=== PATIENT | female | born 2000 | race Caucasian/White ===

== ENCOUNTER 2023-03-21 12:00 | Emergency (ER) | payer OTHER, SELFPAY ==
[2023-03-21 12:08] VITALS: BP 118/71; PULSE 82; RESP 18; TEMP 36.8; O2SAT 97; BMI 17.5
--- NOTE | 2023-03-21 12:29 | ED_ITS ---
HPI - Skin/Abscess/Foreign Bdy General Chief complaint: Skin/Abscess/Foreign Body Stated complaint: RINGWORM Time Seen by Provider: 03/21/23 12:29 Source: patient Mode of arrival: walk-in History of Present Illness HPI narrative: Patient presents to emergency department complaining of a rash. Patient states that she's had ringworm to her left thigh and left shoulder for several days. Boyfriend also has the same symptoms. She denies any fever, chills, cough, chest, shortness of breath. She denies any trauma. She denies trauma. We'll. She states that she remembered that she needed pills or cramping. She has not seen her primary care doctor. Related Data Previous Rx's Medication Instructions Recorded clotrimazole 1 % topical cream 1 applic topical Q12H 8 weeks #30 03/21/23 (Lotrimin AF (clotrimazole)) grams Allergies Allergy/AdvReac Type Severity Reaction Status Date / Time ibuprofen Allergy Mild Verified 03/21/23 12:08 Review of Systems ROS Status of ROS 10 or more systems reviewed and unremarkable except as noted in h istory and below Exam Narrative Exam Narrative: Nurses notes and vital signs reviewed and patient is not hypoxic. General: Nontoxic, Well-appearing and in no apparent distress. Skin: Warm, dry, no pallor noted. Round plaques with well-demarcated borders to the left thigh and 2 to the left posterior shoulder. Consistent with ringworm. Head: Normocephalic, atraumatic. Neck: Supple, non-tender. Eye: Pupils are equal, round and EOMI. No scleral icterus. Ears, Nose, Mouth, and Throat: TM clear, no posterior oropharynx erythema or nasal mucosal hypertrophy, uvula is mid-line Oral mucosa is moist Cardiovascular: Regular Rate and Rhythm without murmur, gallop or rub. Respiratory: No accessory muscle use or respiratory distress. Lungs are clear to auscultation, no wheezing, rales or rhonchi Chest Wall: no tenderness Back: No midline thoracic or lumbar vertebral tenderness. No CVA tenderness Musculoskeletal: normal ROM, no calf or popliteal tenderness, no lower extremity edema/swelling GI: Abdomen is soft, non-distended. Normal bowel sounds. No masses appreciated. No tenderness to palpation. No rebound, guarding, or rigidity noted. Neurological: A&O x4. No cranial nerve dysfunction observed. No truncal ataxia. Moves all extremities. Sensation intact. Psychiatric: Cooperative and interactive. Normal mood and affect. Constitutional Vital Signs - 24 hr 03/21/23 12:08 Temperature 98.2 F Pulse Rate [Monitor] 82 Respiratory Rate 18 Blood Pressure [Left Arm] 118/71 Pulse Oximetry 97 Oxygen Delivery Method Room Air Course Vital Signs Vital signs: Vital Signs Temperature 98.2 F 03/21/23 12:08 Pulse Rate 82 03/21/23 12:08 Respiratory Rate 18 03/21/23 12:08 Blood Pressure 118/71 03/21/23 12:08 Pulse Oximetry 97 03/21/23 12:08 Oxygen Delivery Method Room Air 03/21/23 12:08 Temperature 98.2 F 03/21/23 12:08 Pulse Rate 82 03/21/23 12:08 Respiratory Rate 18 03/21/23 12:08 Blood Pressure 118/71 03/21/23 12:08 Pulse Oximetry 97 03/21/23 12:08 Oxygen Delivery Method Room Air 03/21/23 13:14 MDM - Skin/Abscess/Foreign Bdy MDM Narrative Medical decision making narrative: Patient started on Lotrimin. Advised follow-up with primary care doctor. Stated she does not like taking pills so prefers appointment at this time. .At this time the patient is without objective evidence of an acute process requiring hospitalization or inpatient management. The patient has remained hemodynamically stable. No additional indication for emergent studies at this time. I answered all questions. Discussed discharge instructions including standard anticipatory guidance and what should prompt a return to the emergency department, including if they get worse are not getting better or develops any new or concerning symptoms. I've given them specific time frame in which to follow-up, and who to follow-up with. The patient demonstrates understanding. Patient is nontoxic and stable for discharge with outpatient follow-up. This note was created with the assistance of a speech recognition program. Although the intention is to generate documents that actually reflects the content of the visit, no guarantees can be provided that every mistake has been identified and corrected by editing. Differential Diagnosis Differential diagnosis: Likely abscess of skin or subcutaneous tissue, viral exanthem, dermatophytosis, urticaria, herpes zoster, allergic reaction to drug, cellulitis, eczema, impetigo and contact dermatitis Discharge Plan Discharge Chief Complaint: Skin/Abscess/Foreign Body Clinical Impression: Tinea corporis Patient Disposition: Home, Self-Care Time of Disposition Decision: 13:01 Condition: Good Mode of Transportation: Private Vehicle Prescriptions / Home Meds: New clotrimazole [Lotrimin AF (clotrimazole)] 1 % cream 1 applic topical Q12H 56 Days Qty: 30 0RF Instructions: Tinea Corporis (ED) Additional Instructions: Apply the medication ass instructed. Follow-up with primary care doctor. Return to the emergency department for possible concerns as discussed. Stand Alone Forms: Portal Instructions Referrals: Physician,Non-Staff, MD [Primary Care Provider] - 1 week Discharge Date/Time: 03/21/23 13:10
== END 2023-03-21 13:10 | disposition home or self-care (01) ==
PROVIDERS: Emergency Provider Emergency Medicine
DX: B35.4 Tinea corporis (principal)
CPT/HCPCS: 99282

== ENCOUNTER 2023-06-01 19:36 | Emergency (ER) | payer OTHER, SELFPAY ==
[2023-06-01 19:41] VITALS: BP 115/69; PULSE 94; RESP 16; O2SAT 100; BMI 17.0
--- NOTE | 2023-06-01 19:53 | CT_ITS ---
[address] [address] Patient Name: AGUSTINA MONROY MRN: [facility]:[id number] date: 2000 Sex: F Assigned Patient Location: ER Current Patient Location: ER Accession/Order Number: [id number] Exam Date: 06/01/2023 20:11 Report Date: 06/01/2023 21:04 At the request of: ANGELES SOTO Procedure: CT abdomen pelvis wo con EXAM: CT abdomen pelvis wo con HISTORY: left flank pain COMPARISON: None. TECHNIQUE: CT of the abdomen and pelvis without intravenous contrast. Dose reduction techniques were achieved by using automated exposure control and/or adjustment of mA and/or kV according to patient size and/or use of iterative reconstruction technique. FINDINGS: Limited evaluation of the viscera/organs and vasculature without intravenous contrast. TUBES AND IMPLANTS: Thoracolumbar posterior instrumentation is noted. LOWER CHEST: Unremarkable ABDOMEN and PELVIS ABDOMINAL WALL AND SOFT TISSUES: Right gluteal decubitus ulcer is identified with adjacent soft tissue collection/induration which abuts the posterior wall of the rectum. BONES: No suspicious lesions. Dextroconvex scoliosis. ARTERIES: Incompletely evaluated. VEINS: Incompletely evaluated. LYMPH NODES: Unremarkable. PERITONEUM/ RETROPERITONEUM: Unremarkable. BOWEL: Stool filled colon and rectum. Moderate to large stool burden APPENDIX: Not identified. No inflammatory changes in its expected location. LIVER: No focal lesions are identified GALLBLADDER: Contracted BILE DUCTS: Not dilated SPLEEN: Unremarkable. PANCREAS: Unremarkable. ADRENALS: Unremarkable. KIDNEYS/ URETERS: No stones are identified. Stable mild left pelviectasis. REPRODUCTIVE ORGANS: Unremarkable URINARY BLADDER: Diffuse wall thickening with redemonstration of a urachal sinus. CT/CT abdomen pelvis wo con IMPRESSION: 1. Limited evaluation of the viscera/organs and vasculature without intravenous contrast. 2. Diffuse wall thickening of the bladder with redemonstration of urachal sinus. Correlate for cystitis. 3. Stable left pelviectasis without urinary tract stone identified. 4. Stool-filled colon and rectum with moderate to large stool burden. 5. Right gluteal decubitus ulcer is identified with adjacent soft tissue collection/induration which abuts the posterior wall of the rectum. Correlate for rectocutaneous fistula. Electronically authenticated by: DEEPA WATSON Date: 06/01/2023 21:04
[2023-06-01 19:54] LABS: Bilirubin Urine NEGATIVE (NEGATIVE); Blood Urine TRACE-I (NEGATIVE); Clarity Urine CLEAR (CLEAR); Color Urine LT. YELLOW (YELLOW); Glucose Urine UA NEGATIVE (NEGATIVE); Ketones Urine NEGATIVE (NEGATIVE); Leukocyte Esterase Urine TRACE (NEGATIVE); Nitrite Urine NEGATIVE (NEGATIVE); Protein Urine NEGATIVE (NEG/TRACE); Specific Gravity Urine 1.015 (1.005-1.025); Urine Microscopic Indicated YES
[2023-06-01 20:03] LABS: Bacteria Urine NONE SEEN #/HPF (NONE SEEN); RBC Urine 20-50 #/HPF (0-2)
[2023-06-01 20:04] LABS: Cast Seen? NONE SEEN #/LPF (NONE SEEN); Crystals Seen? None Seen #/HPF (None Seen); Mucus Urine NONE SEEN (NONE SEEN); Squamous Epithelial Cell Urine FEW #/LPF (NONE/RARE); Urine Culture Indicated YES
[2023-06-01 20:07] LABS: HCG Qualitative Urine* NEGATIVE (NEGATIVE)
--- NOTE | 2023-06-01 20:25 | ED_ITS ---
HPI - Abdominal Pain General Chief Complaint: Abdominal Pain Stated Complaint: LT FLANK PAIN Time Seen by Provider: 06/01/23 19:48 Source: patient Mode of arrival: walk-in Limitations: no limitations History of Present Illness HPI narrative: The patient is coming to the ER with a left-sided lower upper abdominal pain that resolved before arrival she mentioned that the pain was severe when it happened almost a few hours ago and it was not associated with any nausea vomiting or any other concerns the pain was not radiating but she does have a history of kidney stone The patient denies any other complaints Related Data Allergies Allergy/AdvReac Type Severity Reaction Status Date / Time ibuprofen Allergy Mild Verified 06/01/23 19:46 Review of Systems ROS Status of ROS 10 or more systems reviewed and unremarkable except as noted in history and below Exam Narrative Exam Narrative: Nurses notes and vital signs reviewed and patient is not hypoxic. General: Well-appearing and in no apparent distress. Skin: Warm, dry, no pallor noted. No rash. Head: Normocephalic, atraumatic. Neck: Supple, non-tender. Eye: Pupils are equal, round and EOMI. No scleral icterus. Ears, Nose, Mouth, and Throat: TM are clear, no nasal mucosal hypertrophy. Oral mucosa is moist, no posterior oropharynx erythema, uvula is mid-line Cardiovascular: Regular Rate and Rhythm without murmur, gallop or rub. Respiratory: No accessory muscle use or respiratory distress. Lungs are clear to auscultation, no wheezing, rales or rhonchi Chest Wall: no tenderness Back: No midline thoracic or lumbar vertebral tenderness. No CVA tenderness Musculoskeletal: normal ROM, no calf or popliteal tenderness, no lower extremity edema/swelling GI: Abdomen is soft, non-distended. Normal bowel sounds. No masses appreciated. No tenderness to palpation. No rebound, guarding, or rigidity noted. Neurological: A&O x4. No cranial nerve dysfunction observed. No truncal a taxia. Moves all extremities. Sensation intact. Psychiatric: Cooperative and interactive. Normal mood and affect. Constitutional Vital Signs, click to edit/add: Last Vital Signs Pulse 94 H 06/01/23 19:41 Resp 16 06/01/23 19:41 BP 115/69 06/01/23 19:41 Pulse Ox 100 06/01/23 19:41 O2 Del Method Room Air 06/01/23 19:41 Course Vital Signs Vital signs: Vital Signs Pulse Rate 94 H 06/01/23 19:41 Respiratory Rate 16 06/01/23 19:41 Blood Pressure 115/69 06/01/23 19:41 Pulse Oximetry 100 06/01/23 19:41 Oxygen Delivery Method Room Air 06/01/23 19:41 Pulse Rate 94 H 06/01/23 19:41 Respiratory Rate 16 06/01/23 19:41 Blood Pressure 115/69 06/01/23 19:41 Pulse Oximetry 100 06/01/23 19:41 Oxygen Delivery Method Room Air 06/01/23 19:41 MDM - Abdominal Pain MDM Narrative Medical decision making narrative: The patient test was negative and her CAT scan shows a constipation with no other acute issues The patient right now just to continue management of her constipation at home She also had negative test and her urine did not show any signs of UTI The patient is to follow up with primary care physician in next 2-3 days or to return to the emergency department should any of the signs or symptoms worsen or new symptoms develop. The patient agrees with the following Diagnosis and Treatment plan and the patient will be discharged home. Lab Data Labs: Lab Results 06/01/23 Range/Units 19:46 Urine Color Lt. yellow (YELLOW) Urine Clarity Clear (CLEAR) Urine pH 7.0 (5.0-9.0) Ur Specific [place] 1.015 (1.005-1.025) Urine Protein Negative (NEG/TRACE) mg/dL Urine Glucose (UA) Negative (NEGATIVE) mg/dL Urine Ketones Negative (NEGATIVE) mg/dL Urine Occult Blood Trace-i (NEGATIVE) Urine Nitrite Negative (NEGATIVE) Urine Bilirubin Negative (NEGATIVE) Urine Urobilinogen 1.0 (0.2-1.0) EU/dL Ur Leukocyte Esterase Trace A (NEGATIVE) Urine RBC 20-50 A (0-2) #/HPF Urine WBC 5-10 A (NONE SEEN) #/HPF Ur Squamous Epith Cells Few A (NONE/RARE) #/LPF Urine Crystals None seen (None Seen) #/HPF Urine Bacteria None seen (NONE SEEN) #/HPF Urine Casts None seen (NONE SEEN) #/LPF Urine Mucus None seen (NONE SEEN) Ur Culture Indicated? Yes Urine HCG, Qual Negative (NEGATIVE) Discharge Plan Discharge Chief Complaint: Abdominal Pain Clinical Impression: Constipation Patient Disposition: Home, Self-Care Time of Disposition Decision: 21:15 Condition: Good Instructions: Constipation (ED) Stand Alone Forms: Portal Instructions Referrals: Physician,Non-Staff, MD [Primary Care Provider] - 1 week
== END 2023-06-01 21:21 | disposition home or self-care (01) ==
PROVIDERS: Emergency Provider Emergency Medicine
DX: K59.00 Constipation, unspecified (principal); Z87.442 Personal history of urinary calculi
CPT/HCPCS: 74176; 80053; 81001; 84703; 87086; 87150; 99284

== ENCOUNTER 2023-06-16 06:42 | Emergency (ER) | payer OTHER, SELFPAY ==
[2023-06-16 07:06] VITALS: BP 114/78; PULSE 85; RESP 16; TEMP 36.8; O2SAT 97; BMI 17.0
--- NOTE | 2023-06-16 07:35 | ED.ABDPAIN1 ---
HPI - Abdominal Pain General Chief Complaint: Abdominal Pain Stated Complaint: ABD PAIN Time Seen by Provider: 06/16/23 07:27 Source: patient and family Mode of arrival: walk-in Limitations: no limitations History of Present Illness HPI narrative: The patient evaluated by the ER 2 weeks ago for constipation's coming to us after she had a bowel movement and she was having some cramping at work and after the bowel movement the cramping resolved, the patient mentioned that she usually use coffee as a laxative The patient coming to the ER for work excuse after she had to leave work today because of the cramping that resolved after having bowel movement Related Data Allergies Allergy/AdvReac Type Severity Reaction Status Date / Time ibuprofen Allergy Mild Verified 06/16/23 07:11 Review of Systems ROS Status of ROS 10 or more systems reviewed and unremarkable except as noted in history and below PFSH PFS Social History Smoking status: Current every day smoker Exam Narrative Exam Narrative: Nurses notes and vital signs reviewed and patient is not hypoxic. General: Well-appearing and in no apparent distress. Skin: Warm, dry, no pallor noted. No rash. Head: Normocephalic, atraumatic. Neck: Supple, non-tender. Eye: Pupils are equal, round and EOMI. No scleral icterus. Ears, Nose, Mouth, and Throat: TM are clear, no nasal mucosal hypertrophy. Oral mucosa is moist, no posterior oropharynx erythema, uvula is mid-line Cardiovascular: Regular Rate and Rhythm without murmur, gallop or rub. Respiratory: No accessory muscle use or respiratory distress. Lungs are clear to auscultation, no wheezing, rales or rhonchi Chest Wall: no tenderness Back: No midline thoracic or lumbar vertebral tenderness. No CVA tenderness Musculoskeletal: normal ROM, no calf or popliteal tenderness, no lower extremity edema/swelling GI: Abdomen is soft, non-distended. Normal bowel sounds. No masses appreciated. No tenderness to palpation. No rebound, guarding, or rigidity noted. Neurological: A&O x4. No cranial nerve dysfunction observed. No truncal ataxia. Moves all extremities. Sensation intact. Psychiatric: Cooperative and interactive. Normal mood and affect. Constitutional Vital Signs, click to edit/add: Last Vital Signs Temp 98.2 F 06/16/23 07:06 Pulse 85 06/16/23 07:06 Resp 16 06/16/23 07:06 BP 114/78 06/16/23 07:06 Pulse Ox 97 06/16/23 07:06 O2 Del Method Room Air 06/16/23 07:06 Course Vital Signs Vital signs: Vital Signs Temperature 98.2 F 06/16/23 07:06 Pulse Rate 85 06/16/23 07:06 Respiratory Rate 16 06/16/23 07:06 Blood Pressure 114/78 06/16/23 07:06 Pulse Oximetry 97 06/16/23 07:06 Oxygen Delivery Method Room Air 06/16/23 07:06 Temperature 98.2 F 06/16/23 07:06 Pulse Rate 85 06/16/23 07:06 Respiratory Rate 16 06/16/23 07:06 Blood Pressure 114/78 06/16/23 07:06 Pulse Oximetry 97 06/16/23 07:06 Oxygen Delivery Method Room Air 06/16/23 07:06 MDM - Abdominal Pain MDM Narrative Medical decision making narrative: The patient is here for a work excuse which she was provided with she was instructed to continue hydration and fiber intake The patient is to follow up with primary care physician in next 2-3 days or to return to the emergency department should any of the signs or symptoms worsen or new symptoms develop. The patient agrees with the following Diagnosis and Treatment plan and the patient will be discharged home. Discharge Plan Discharge Chief Complaint: Abdominal Pain Clinical Impression: Constipation Patient Disposition: Home, Self-Care Time of Disposition Decision: 07:39 Condition: Good Mode of Transportation: Private Vehicle Instructions: Constipation (ED) Stand Alone Forms: Portal Instructions Referrals: Physician,Non-Staff, MD [Primary Care Provider] - 1 week
== END 2023-06-16 07:53 | disposition home or self-care (01) ==
PROVIDERS: Emergency Provider Emergency Medicine
DX: K59.00 Constipation, unspecified (principal); F17.210 Nicotine dependence, cigarettes, uncomplicated
CPT/HCPCS: 99282

== ENCOUNTER 2023-06-17 20:39 | Emergency (ER) | payer OTHER, SELFPAY ==
[2023-06-17 20:58] VITALS: BP 125/74; PULSE 76; RESP 16; TEMP 36.8; O2SAT 100; BMI 17.0
[2023-06-17 21:23] LABS: Bilirubin Urine NEGATIVE (NEGATIVE); Blood Urine TRACE-I (NEGATIVE); Clarity Urine CLEAR (CLEAR); Color Urine LT. YELLOW (YELLOW); Glucose Urine UA NEGATIVE (NEGATIVE); Ketones Urine NEGATIVE (NEGATIVE); Leukocyte Esterase Urine NEGATIVE (NEGATIVE); Nitrite Urine NEGATIVE (NEGATIVE); Protein Urine TRACE mg/dL (NEG/TRACE); Urobilinogen Urine 0.2 EU/dL (0.2-1.0)
[2023-06-17 21:27] LABS: Urine Microscopic Indicated NO
== END 2023-06-17 23:16 | disposition left against medical advice (07) ==
LOC: ER 20:43
PROVIDERS: Emergency Provider Emergency Medicine
DX: Z53.21 Procedure and treatment not carried out due to patient leaving prior to being seen by health care provider (principal); R10.9 Unspecified abdominal pain
CPT/HCPCS: 81003

== ENCOUNTER 2023-06-20 10:06 | Emergency (ER) | payer OTHER, SELFPAY ==
[2023-06-20 10:13] VITALS: BP 104/76; PULSE 100; RESP 16; TEMP 37.1; O2SAT 100; BMI 18.9
[2023-06-20 10:26] LABS: Bilirubin Urine NEGATIVE (NEGATIVE); Blood Urine TRACE-I (NEGATIVE); Clarity Urine CLEAR (CLEAR); Color Urine LT. YELLOW (YELLOW); Glucose Urine UA NEGATIVE (NEGATIVE); Ketones Urine NEGATIVE (NEGATIVE); Leukocyte Esterase Urine SMALL (NEGATIVE); Nitrite Urine NEGATIVE (NEGATIVE); Protein Urine NEGATIVE (NEG/TRACE); Specific Gravity Urine 1.015 (1.005-1.025); Urobilinogen Urine 0.2 EU/dL (0.2-1.0); pH Urine 7.5 (5.0-9.0)
[2023-06-20 10:29] LABS: Urine Microscopic Indicated YES
--- NOTE | 2023-06-20 10:34 | ED_ITS ---
HPI - Female Genitourinary General Chief complaint: Urogenital-Female Stated complaint: UTI SYMPTOMS Time Seen by Provider: 06/20/23 10:34 Source: patient Mode of arrival: walk-in History of Present Illness HPI Narrative: this patient's here with a possible urinary tract infection. At the time of her . 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 She had a surgical procedure done at and is voids through self- catheterization through the opening in the umbilical area. She is under the care of a adult urologist in [place]. They had advised her to be on Bactrim on a daily basis but she's not been doing that for quite some time. She states that she has not, to her knowledge, didn't develop any resistant organisms and usually Bactrim works. She has not had fever shakes or chills. She does not have a new pain in her back area. She's not had vomiting or diarrhea. Related Data Home Medications Medication Instructions Recorded Confirmed No Known Home Medications 06/17/23 06/17/23 Allergies Allergy/AdvReac Type Severity Reaction Status Date / Time ibuprofen Allergy Mild Verified 06/20/23 10:16 [facility] Social History Smoking status: Current every day smoker Exam Narrative Exam Narrative: awake alert pleasant does not appear ill. She is afebrile. Examination the abdomen area she has no peritoneal findings and no guarding rebound rigidity or discomfort. She has a small opening within the umbilicus that she self catheterizes herself. She is already done that for us any urine has been sent to lab. She does not appear ill or skin is warm and dry mucous membranes are moist and pink there is no pallor. There is no diaphoresis or clamminess. Final disposition is pending urinalysis. Constitutional Vital Signs, click to edit/add: Last Vital Signs Temp 98.7 F 06/20/23 10:13 Pulse 100 H 06/20/23 10:13 Resp 16 06/20/23 10:13 BP 104/76 06/20/23 10:13 Pulse Ox 100 06/20/23 10:13 O2 Del Method Room Air 06/20/23 10:13 Course Vital Signs Vital signs: Vital Signs Temperature 98.7 F 06/20/23 10:13 Pulse Rate 100 H 06/20/23 10:13 Respiratory Rate 16 06/20/23 10:13 Blood Pressure 104/76 06/20/23 10:13 Pulse Oximetry 100 06/20/23 10:13 Oxygen Delivery Method Room Air 06/20/23 10:13 Temperature 98.7 F 06/20/23 10:13 Pulse Rate 100 H 06/20/23 10:13 Respiratory Rate 16 06/20/23 10:13 Blood Pressure 104/76 06/20/23 10:13 Pulse Oximetry 100 06/20/23 10:13 Oxygen Delivery Method Room Air 06/20/23 10:13 MDM - Female Genitourinary MDM Narrative Medical decision making narrative: patient presents with urinary symptomatology. She normally would be on Bactrim but has not been on it for quite some time. She is under the care of a urologist in [place]. Her urinalysis suggests early urinary tract infection so we will start her back on Bactrim. She is take plenty of fluids. Lab Data Labs: Lab Results 06/20/23 Range/Units 10:20 Urine Color Lt. yellow (YELLOW) Urine Clarity Clear (CLEAR) Urine pH 7.5 (5.0-9.0) Ur Specific [place] 1.015 (1.005-1.025) Urine Protein Negative (NEG/TRACE) mg/dL Urine Glucose (UA) Negative (NEGATIVE) mg/dL Urine Ketones Negative (NEGATIVE) mg/dL Urine Occult Blood Trace-i (NEGATIVE) Urine Nitrite Negative (NEGATIVE) Urine Bilirubin Negative (NEGATIVE) Urine Urobilinogen 0.2 (0.2-1.0) EU/dL Ur Leukocyte Esterase Small A (NEGATIVE) Urine RBC 0-2 (0-2) #/HPF Urine WBC 5-10 A (NONE SEEN) #/HPF Ur Squamous Epith Cells Rare (NONE/RARE) #/LPF Urine Crystals None seen (None Seen) #/HPF Urine Bacteria Small A (NONE SEEN) #/HPF Urine Casts None seen (NONE SEEN) #/LPF Urine Mucus None seen (NONE SEEN) Ur Culture Indicated? Yes Discharge Plan Discharge Chief Complaint: Urogenital-Female Clinical Impression: Urinary tract infection Patient Disposition: Home, Self-Care Time of Disposition Decision: 10:52 Prescriptions / Home Meds: No Action No Known Home Medications Additional Instructions: Bactrim/take plenty of fluids Stand Alone Forms: Portal Instructions Referrals: Physician,Non-Staff, [Primary Care Provider] - 1 week
[2023-06-20 10:35] LABS: Bacteria Urine SMALL #/HPF (NONE SEEN); Cast Seen? NONE SEEN #/LPF (NONE SEEN); Crystals Seen? None Seen #/HPF (None Seen); Mucus Urine NONE SEEN (NONE SEEN); RBC Urine 0-2 #/HPF (0-2); Squamous Epithelial Cell Urine RARE #/LPF (NONE/RARE); Urine Culture Indicated YES
== END 2023-06-20 11:05 | disposition home or self-care (01) ==
PROVIDERS: Emergency Provider Emergency Medicine Emergency Medical Services
DX: N39.0 Urinary tract infection, site not specified (principal); F17.210 Nicotine dependence, cigarettes, uncomplicated
CPT/HCPCS: 81001; 87086; 87150; 99283

== ENCOUNTER 2023-06-28 05:57 | Emergency (ER) | payer OTHER, SELFPAY ==
[2023-06-28 06:03] VITALS: BP 126/87; PULSE 85; RESP 16; TEMP 36.6; O2SAT 100; BMI 16.5
--- NOTE | 2023-06-28 06:35 | ED.GENADUL1 ---
HPI - General Adult General Chief complaint: Recheck/Abnormal Lab/Rx Stated complaint: RECTAL BLEEDING Time Seen by Provider: 06/28/23 06:35 Source: patient Mode of arrival: walk-in History of Present Illness HPI narrative: patient has past history of hemorrhoids. States a couple of hours ago ago she had anal sex with her boyfriend. She describes him using his finger and it was sharp. At work she wiped after having a BM and noticed some blood and freaked out no recurrence. No abdominal pain or fever. Related Data Home Medications Medication Instructions Recorded Confirmed No Known Home Medications 06/17/23 06/17/23 Allergies Allergy/AdvReac Type Severity Reaction Status Date / Time ibuprofen Allergy Mild Verified 06/20/23 10:16 Review of Systems ROS Status of ROS 10 or more systems reviewed and unremarkable except as noted in history and below PFSH PFS Social History Smoking status: Current every day smoker Exam Constitutional Vital Signs, click to edit/add: Last Vital Signs Temp 97.8 F 06/28/23 06:03 Pulse 85 06/28/23 06:03 Resp 16 06/28/23 06:03 BP 126/87 06/28/23 06:03 Pulse Ox 100 06/28/23 06:03 O2 Del Method Room Air 06/28/23 06:03 Common normals: no apparent distress, oriented x3, healthy appearing and alert Eye Common normals: PERRL, EOMs intact bilaterally and conjunctivae normal Chest Common normals: inspection of chest normal and palpation of chest normal GI Common normals: Normal to inspection, nondistended, normoactive bowel sounds present, soft to palpation and non-tender Other: anal verge with evidence of several small fissures of the anal verge. Extremity Common normals: normal to inspection and full ROM Neuro Common normals: oriented x3, CN's II-XII intact bilaterally, moves all extremities and no focal motor deficits Psych Appearance: grossly normal Course Vital Signs Vital signs: Vital Signs Temperature 97.8 F 06/28/23 06:03 Pulse Rate 85 06/28/23 06:03 Respiratory Rate 16 06/28/23 06:03 Blood Pressure 126/87 06/28/23 06:03 Pulse Oximetry 100 06/28/23 06:03 Oxygen Delivery Method Room Air 06/28/23 06:03 Temperature 97.8 F 06/28/23 06:03 Pulse Rate 85 06/28/23 06:03 Respiratory Rate 16 06/28/23 06:03 Blood Pressure 126/87 06/28/23 06:03 Pulse Oximetry 100 06/28/23 06:03 Oxygen Delivery Method Room Air 06/28/23 06:03 Medical Decision Making MDM Narrative Medical decision making narrative: patient presents complaining of wiping after BM and noticing some blood on the tissue. Admits to anal sex with her boyfriend earlier tonight. Anal exam performed with nursing. patient found to have small fissures likely from her anal sex. Patient discharged with home with a prescription for Bactroban and advised to avoid anal sex Discharge Plan Discharge Chief Complaint: Recheck/Abnormal Lab/Rx Clinical Impression: Rectal bleed, Acute anal fissure Prescriptions / Home Meds: No Action No Known Home Medications Instructions: Anal Fissure (ED) Stand Alone Forms: Portal Instructions Referrals: Physician,Non-Staff, MD [Primary Care Provider] - 1 week
== END 2023-06-28 06:56 | disposition home or self-care (01) ==
PROVIDERS: Emergency Provider Internal Medicine
DX: K62.5 Hemorrhage of anus and rectum (principal); K60.2 Anal fissure, unspecified; F17.210 Nicotine dependence, cigarettes, uncomplicated
CPT/HCPCS: 99283

== ENCOUNTER 2023-12-26 13:41 | Emergency (ER) | payer OTHER, SELFPAY ==
[2023-12-26 13:47] VITALS: BP 136/94; PULSE 95; RESP 18; TEMP 36.4; O2SAT 100; BMI 18.1
--- NOTE | 2023-12-26 13:58 | ECG_ITS ---
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
--- NOTE | 2023-12-26 13:58 | ED_ITS ---
HPI - Chest Pain General Chief Complaint: Chest Pain Stated Complaint: CHEST PAIN Time Seen by Provider: 12/26/23 13:47 Source: patient Mode of arrival: walk-in Limitations: no limitations History of Present Illness HPI narrative: 23 year old female presents to the ED for chest pain. Onset was last night. States the pain radiates across her chest, down her left arm, and to her left jaw. The pain is worse with movement and inspiration. Denies fever, chills, injury, cough, N/V. She has hx anxiety. Related Data Home Medications Medication Instructions Recorded Confirmed No Known Home Medications 06/17/23 06/17/23 Allergies Allergy/AdvReac Type Severity Reaction Status Date / Time ibuprofen Allergy Mild Verified 06/20/23 10:16 Review of Systems ROS Constitutional Denies: fever or chills Ears, nose, mouth, and throat Denies: throat pain or neck pain Cardiovascular Reports: chest pain; Denies: palpitations, swelling of feet/ankles or lightheadedness Respiratory Denies: shortness of breath or cough Gastrointestinal Denies: abdominal pain, nausea or vomiting Neurological Denies: headache, numbness in extremities, weakness in extremities, dizziness or vertigo PFSH PFSH Social History Smoking status: Current every day smoker Exam Constitutional Vital Signs, click to edit/add: Last Vital Signs Temp 97.6 F 12/26/23 13:47 Pulse 95 H 12/26/23 13:47 Resp 18 12/26/23 13:47 BP 136/94 H 12/26/23 13:47 Pulse Ox 100 12/26/23 13:47 O2 Del Method Room Air 12/26/23 13:47 Common normals: no apparent distress and oriented x3 General appearance: cooperative Eye Common normals: conjunctivae normal and no scleral icterus Neck & C-Spine Common normals: supple and no JVD Chest Chest: symmetrical chest wall rise Respiratory Common normals: normal respiratory effort, no retractions, no use of accessory muscles and clear to auscultation bilaterally Effort & inspection: able to speak in complete sentences Cardio Common normals: regular rate and regular rhythm Neuro Common normals: oriented x3 Sensorium/orientation: awake and alert Speech: speech normal Course Vital Signs Vital signs: Vital Signs Temperature 97.6 F 12/26/23 13:47 Pulse Rate 95 H 12/26/23 13:47 Respiratory Rate 18 12/26/23 13:47 Blood Pressure 136/94 H 12/26/23 13:47 Pulse Oximetry 100 12/26/23 13:47 Oxygen Delivery Method Room Air 12/26/23 13:47 Temperature 97.6 F 12/26/23 13:47 Pulse Rate 95 H 12/26/23 13:47 Respiratory Rate 18 12/26/23 13:47 Blood Pressure 136/94 H 12/26/23 13:47 Pulse Oximetry 100 12/26/23 13:47 Oxygen Delivery Method Room Air 12/26/23 13:47 MDM - Chest Pain MDM Narrative Medical decision making narrative: EKG was unremarkable. Chest x-ray showed no acute findings. Findings were discussed with the patient. The patient reported she has been under increased stress. Follow up with pcp for a recheck, further evaluation and treatment. Differential Diagnosis Differential diagnosis: Likely atypical chest pain, costochondritis and chest pain Medical Records Data Attestation: I reviewed the patient's medical records. Imaging Data Chest x-ray: Attestation: I have reviewed the pertinent imaging results. Radiologist's impression: ITS Impressions Chest X-Ray 12/26/23 13:58 IMPRESSION: No acute heart or lung disease identified. Electronically authenticated by: SEAMUS CONCEPCION Date: 12/26/2023 14:30 ECG Data Attestation: ?I have reviewed the pertinent ECG results. (EKG was reviewed by the attending physician. It showed sinus rhythm at a rate of 90. No acute ST segment changes. ) Interpretation: Measurements Intervals [place] Rate: 91 P: 75 NM: 180 QRS: 86 QRSD: 70 T: 58 QT: 346 QTc: 394 Interpretive Statements 1100 Sinus rhythm 9110 normal ECG No previous ECG available for comparison Discharge Plan Discharge Stand Alone Forms: Portal Instructions Chief Complaint: Chest Pain Clinical Impression: Atypical chest pain Patient Disposition: Home, Self-Care Time of Disposition Decision: 14:43 Condition: Good Mode of Transportation: Private Vehicle Prescriptions / Home Meds: No Action No Known Home Medications Instructions: Chest Pain (ED), Chest Wall Pain (ED) Referrals: Physician,Non-Staff, MD [Primary Care Provider] - 1 week Discharge Date/Time: 12/26/23 14:49
--- NOTE | 2023-12-26 13:58 | XR_ITS ---
The [address] [address] Patient Name: AGUSTINA MONROY MRN: [id number] date: 2000 Sex: F Assigned Patient Location: ER Current Patient Location: ER Accession/Order Number: [id number] Exam Date: 12/26/2023 14:18 Report Date: 12/26/2023 14:30 At the request of: RUPA FERGUSON Procedure: XR chest 2V EXAM: Chest x-ray HISTORY: . CP . COMPARISON: 10/09/2012 TECHNIQUE: Frontal and lateral chest FINDINGS: Heart and vascularity are unremarkable. Lungs are free of focal infiltrates. Rods with pedicle screws are noted overlying the thoracic and upper lumbar spine. EKG leads overlie the chest. XR/XR chest 2V IMPRESSION: No acute heart or lung disease identified. Electronically authenticated by: SEAMUS CONCEPCION Date: 12/26/2023 14:30
== END 2023-12-26 14:49 | disposition home or self-care (01) ==
PROVIDERS: Emergency Provider Emergency Medicine
DX: R07.89 Other chest pain (principal); F17.210 Nicotine dependence, cigarettes, uncomplicated
CPT/HCPCS: 71046; 93005; 99284

== ENCOUNTER 2024-03-18 19:06 | Emergency (ER) | payer OTHER, SELFPAY ==
[2024-03-18 19:11] VITALS: BP 113/80; PULSE 83; TEMP 36.9; O2SAT 100; BMI 17.7
--- NOTE | 2024-03-18 19:19 | ED.PREGNANC1 ---
HPI - General Chief complaint: Vaginal Bleeding Stated complaint: Vaginal Bleeding, 7-weeks Time Seen by Provider: 03/18/24 19:15 Source: patient Mode of arrival: walk-in History of Present Illness HPI Narrative: 23-year-old female who is 1 para 0 presents for vaginal bleeding. She has had some spotting and it started about 50 minutes ago. She has minimal abdominal cramping. She believes she is 7 weeks based on her last period. She has not had an ultrasound during this . No fever or injury or vomiting. Related Data Home Medications ?Medication ?Instructions ?Recorded ?Confirmed No Known Home Medications 06/17/23 06/17/23 Allergies Allergy/AdvReac Type Severity Reaction Status Date / Time ibuprofen Allergy Mild Verified 06/20/23 10:16 Review of Systems ROS Narrative A ten point review of systems is negative except as noted above. PFSH PFSH Social History Smoking status: Current every day smoker Exam Narrative Exam Narrative: Nurses note and vital signs reviewed and patient is not hypoxic. General: The patient appears well and in no apparent distress. Patient is resting comfortably on cart. Skin: Warm, dry, no pallor noted. There is no rash noted. Head: Normocephalic, atraumatic Eye: Normal conjunctiva, no drainage Ears, Nose, Mouth, and Throat: oral mucosa is moist. Nares patent. Cardiovascular: Regular Rate and Rhythm Respiratory: Patient is in no distress, no accessory muscle use, lungs are clear to auscultation, no wheezing, rales or rhonchi Back: non-tender GI: Soft and there is no tenderness mass or distention Musculoskeletal: The patient has no evidence of calf tenderness, no pitting edema, symmetrical pulses noted bilaterally Neurological: A&O, normal speech Psychiatric: Cooperative Constitutional Vital Signs, click to edit/add: Last Vital Signs Temp 98.4 F 03/18/24 19:11 Pulse 86 03/18/24 21:07 Resp 16 03/18/24 21:07 BP 120/77 03/18/24 21:07 Pulse Ox 99 03/18/24 21:07 O2 Del Method Room Air 03/18/24 19:28 Course Vital Signs Vital signs: Vital Signs Temperature 98.4 F 03/18/24 19:11 Pulse Rate 83 03/18/24 19:11 Respiratory Rate 18 03/18/24 19:11 Blood Pressure 113/80 03/18/24 19:11 Pulse Oximetry 100 03/18/24 19:11 Oxygen Delivery Method Room Air 03/18/24 19:11 Temperature 98.4 F 03/18/24 19:11 Pulse Rate 86 03/18/24 21:07 Respiratory Rate 16 03/18/24 21:07 Blood Pressure 120/77 03/18/24 21:07 Pulse Oximetry 99 03/18/24 21:07 Oxygen Delivery Method Room Air 03/18/24 19:28 MDM - OB/Uterine Contractions MDM Narrative Medical decision making narrative: Blood type is a positive and hCG titer is 28,655. Ultrasound report was discussed with the patient and she was instructed to call her instrumentation chemist in the morning for follow-up. She will likely need repeat hCG titer. There is no evidence of an ectopic and she is able to be discharged home. Treatment diagnosis and follow-up were discussed with the patient. Differential Diagnosis Differential diagnosis: Likely other (Threatened miscarriage, ectopic ) Lab Data Attestation: I reviewed the patient's lab results. Labs: Lab Results 03/18/24 Range/Units 19:31 WBC 7.4 (4.0-11.0) 10^3/uL RBC 4.56 (4.20-5.40) 10^6/uL Hgb 13.8 (12.0-16.0) g/dL Hct 41.4 (36.0-48.0) % MCV 90.8 (81.0-99.0) fL MCH 30.3 (26.7-34.0) pg MCHC 33.3 (29.9-35.2) g/dL RDW 11.9 (11.0-15.0) % Plt Count 244 (150-450) 10^3/uL MPV 9.5 (9.5-13.5) fL Neut % (Auto) 67.0 (43.0-75.0) % Lymph % (Auto) 23.0 (20.5-60.0) % [place] % (Auto) 6.9 (1.7-12.0) % Eos % (Auto) 1.6 (0.9-7.0) % Baso % (Auto) 1.2 (0.2-2.0) % Neut # (Auto) 5.0 (1.4-6.5) 10^3/uL Lymph # (Auto) 1.7 (1.2-3.8) 10^3/uL [place] # (Auto) 0.5 (0.3-0.8) 10^3/uL Eos # (Auto) 0.1 (0.0-0.7) 10^3/uL Baso # (Auto) 0.1 (0.0-0.1) 10^3/uL Abs Immat Gran (auto) 0.02 (0.00-0.03) 10^3/uL Imm/Tot Granulo (auto) 0.3 (0.0-0.5) % Sodium 135 L (136-145) mmol/L Potassium 3.5 (3.5-5.1) mmol/L Chloride 100 (98-107) mmol/L Carbon Dioxide 25.6 (21.0-32.0) mmol/L Anion Gap 12.9 BUN 17.0 (7.0-18.0) mg/dL Creatinine 1.14 H (0.55-1.02) mg/dL Est GFR ( Amer) >60 (>=60) Est GFR (Non-Af Amer) >60 (>=60) BUN/Creatinine Ratio 14.9 Glucose 85 (74-106) mg/dL Calcium 9.4 (8.5-10.1) mg/dL HCG, Quant 18119 mIU/mL Blood Type A Positive Imaging Data Pelvic ultrasound: Radiologist's impression: ITS Impressions Transvaginal US 03/18/24 20:27 IMPRESSION: Likely early intrauterine gestation with a gestational sac measuring 5 weeks 1 day. No pole is yet visualized. No definite ectopic however, left ovary is not visualized limiting evaluation. Recommend repeat sonogram in 2 weeks to document viability or sooner if clinically indicated and continued trending of beta-hCG. Electronically authenticated by: KVNG KELLY Date: 03/18/2024 22:16 Discharge Plan Discharge Stand Alone Forms: Portal Instructions Chief Complaint: Vaginal Bleeding Clinical Impression: Threatened Patient Disposition: Home, Self-Care Time of Disposition Decision: 22:25 Condition: Good Mode of Transportation: Private Vehicle Prescriptions / Home Meds: No Action No Known Home Medications Print Language: Romanian Instructions: Threatened Miscarriage (ED) Additional Instructions: Call your instrumentation chemist for follow-up in the morning. Referrals: Physician,Non-Staff, MD [Primary Care Provider] - 1 week
--- OUTSIDE RECORDS SUMMARY | 2024-03-18 19:27 | XMS_ITS ---
Patient Summarization (C-CDA 2.1 CCD) Created on: March 18, 2024 AGUSTINA PIMENTEL : 2000 Sex: Undifferentiated Author Organization Sample organization Care Team Providers Care Grades 1 Through 6 Teacher Name Role Phone Ginny Varela Primary Care Provider SUNITA LUNA Referring Unavailable GINNY VARELA Primary Care Unavailable Ginny Varela Primary Care Provider Melissa TEJEDA Apurva Primary Care Provider Melissa TEJEDA Apurva Primary Care Provider Ginny Varela MD Primary Care Provider [phone] Ezequielmdpranay TEJEDA Apurva Primary Care Provider [facility] Primary Care Unavailable MARKELL FERNANDO Attending Unavailable MEHDI DUMONT Admitting Unavailable MEHDI DUMONT Attending Unavailable MEHDI DUMONT Consulting Unavailable [facility] Primary Care Unavailable DR RAMÍREZ VILLASENOR Admitting Unavailable DR RAMÍREZ VILLASENOR Attending Unavailable DR RAMÍREZ VILLASENOR Consulting Unavailable [facility] APURVA Primary Care Unavailable WALT COOK Consulting Unavailabl e DIAB ., ANGELES Admitting Unavailable DIAB ., ANGELES Attending Unavailable [facility] Primary Care Unavailable MEHDI DUMONT Attending Unavailable WALT COOK Consulting Unavailabl e RUMSCHLAG, APURVA Primary Care Unavailable MEHDI DUMONT Admitting Unavailable JOSE PADILLA Consulting Unavailable SURENDRA, JACK Admitting Unavailable INOCENTE, DR BROOKS Primary Care Unavailable JACK BENDER Attending Unavailable REY BENDERYL Consulting Unavailable GAYATHRI WANG Consulting Unavailable SURENDRA, JACK Admitting Unavailable JACK BENDER Attending Unavailable REY BENDERYL Consulting Unavailable RUMSCHLAG, APURVA Primary Care Unavailable DIAB ., ANGELES Consulting Unavailable CM ., MEHDI Admitting Unavailable CM ., MEHDI Attending Unavailable RUMSCHLAG, APURVA Primary Care Unavailable CM ., MEHDI Consulting Unavailable Rumschlag DO, Apurva K Primary Care Provider [phone] JAKOB, KATHRYN Referring Unavailable RUMSCHLAG, APURVA K Primary Care Unavailable AC MARIEE Attending Unavailable JAKOB, KATHRYN Referring Unavailable RUMSCHLAG, APURVA K Primary Care Unavailable JUNEJOLOR Attending Unavailable MARIANA, DINGDING Attending Unavailable MARIANA, DINGDING Referring Unavailable RUMSCHLAG, APURVA Primary Care Unavailable GOLIVER, KARIME Hutton Attending Unavailable RUMSCHLAG, APURVA K Primary Care Unavailable GOLIVER, KARIME Hutton Attending Unavailable GOLIVER, KARIME Hutton Referring Unavailable RUMSCHLAG, APURVA K Primary Care Unavailable GOLIVER, KARIME Hutton Attending Unavailable GOLIVER, KARIME Hutton Referring Unavailable RUMSCHLAG, APURVA K Primary Care Unavailable RUMSCHLAG, APURVA K Primary Care Unavailable GOLIVER, KARIME Hutton Attending Unavailable JAKOB, KATHRYN L Referring Unavailable RUMSCHLAG, APURVA K Primary Care Unavailable JAKOB, KATHRYN L Attending Unavailable RUMSCHLAG, APURVA K Referring Unavailable RUMSCHLAG, APURVA K Primary Care Unavailable JAKOB, KATHRYN L Attending Unavailable RUMSCHLAG, APURVA K Referring Unavailable RUMSCHLAG, APURVA K Primary Care Unavailable JAKOB, KATHRYN L Attending Unavailable RUMSCHLAG, APURVA K Referring Unavailable RUMSCHLAG, APURVA K Primary Care Unavailable JAKOB, KATHRYN L Attending Unavailable RUMSCHLAG, APURVA K Referring Unavailable RUMSCHLAG, APURVA K Primary Care Unavailable Allergies Allergy Classification Reported Allergen(s) Allergy Type Date of Onset Reaction(s) Facility Aspirin (1 source) Aspirin; Translations: [ASPIRIN] Drug Allergy 3 [facility] diphenhydrAMINE (1 source) diphenhydrAMINE; Translations: [DIPHENHYDRAMINE ] Drug Allergy 3 [facility] NSAIDs (1 source) Ibuprofen; Translations: [IBUPROFEN] Drug Allergy 2 [facility] (15 sources) Ibuprofen; Translations: [IBUPROFEN] Drug Allergy 2 Other (See Comments) [facility] (1 source) Ibuprofen Drug Allergy 3 [facility] (11 sources) Aspirin; Translations: [ASPIRIN] Drug Allergy [address] [facility] (11 sources) diphenhydrAMINE; Translations: [DIPHENHYDRAMINE ] Drug Allergy [address] [facility] Encounters Encounter Date Encounter Type Care Provider Facility Start: 03-13-2024 End: 03-13-2024 ambulatory [facility] Start: 02-05-2024 End: 02-06-2024 Emergency department patient visit KARIME Hutton [facility] Start: 02-05-2024 End: 02-05-2024 Emergency department patient visit [facility]ARIME [facility] Start: 01-16-2024 End: 01-16-2024 ambulatory [facility] Start: 01-16-2024 End: 01-16-2024 Office outpatient visit 15 minutes Kathryn Nettles MD Work Phone: [facility] Obstetrics/Gynecol og Comment on above: Condyloma (Primary D x); HPV (human papilloma virus) anogenital infection Start: 01-10-2024 End: 01-11-2024 ambulatory [facility] Start: 12-07-2023 End: [facility]07[facility] Start: 12-07-2023 End: 12-07-2023 Office consultation new/estab patient 40 min Ac Mariee MD Work Phone: [facility] Comment on above: Hydronephrosis of le ft kidney; Chronic renal impairment, stage 3 (moderate), unspecified whether stage 3a or 3b CKD ([facility]) Start: 11-24-2023 Encounter for gyneco logical examination (general) (routine) without abnormal findings Catrina Tejeda LPN [facility] Start: 11-24-2023 Orders Only Catrina Tejeda LPN [facility] [place] Comment on above: Cervical smear, as p art of routine gynecological examination (Primary Dx) Start: 11-23-2023 Chart abstracting Ac eldridge MD Work Phone: [facility] Start: 11-19-2023 Telephone encounter Nina Nikko ortiz LEGAL SECRETARY RECEPTIONIST-CNM Work Phone: [facility] Obstetrics/Gynecol ogy Start: 11-16-2023 Telephone encounter Nina ortiz LEGAL SECRETARY RECEPTIONIST-CNM Work Phone: [facility] Start: 11-15-2023 End: 11-16-2023 ambulatory [facility] Start: 11-15-2023 End: 11-15-2023 ambulatory [facility] Start: 11-15-2023 Encounter for gyneco logical examination (general) (routine) without abnormal findings [facility] Start: 11-15-2023 End: 11-15-2023 Patient encounter status Kathryn Nettles MD Work Phone: [facility] Start: 11-15-2023 End: 11-15-2023 Periodic preventive med est patient 18-39 yrs Kathryn Nettles MD Work Phone: [facility] Obstetrics/Gynecol ogy Comment on above: Smear, vaginal, as p art of routine gynecological examination (Primary Dx); Screening for STD (sexually transmitted disease); Encounter for gynecological examination without abnormal finding Start: 11-15-2023 End: 11-15-2023 [facility] Start: 11-15-2023 Encounter for gyneco logical examination (general) (routine) without abnormal findings KARIME [facility] Start: 11-08-2023 Telephone encounter Pau Castillo in [facility] Start: 11-07-2023 End: 11-07-2023 ambulatory [facility] Start: 11-07-2023 End: 11-07-2023 Office outpatient new 30 minutes Kathryn Nettles MD Work Phone: [facility] Comment on above: Hydronephrosis of le ft kidney (Primary Dx); Chronic renal impairment, stage 3 (moderate), unspecified whether stage 3a or 3b CKD (CMS-HCC); Irregular bleeding Start: 10-06-2023 [facility] Start: 10-04-2023 End: 10-04-2023 Emergency department patient visit APURVA ENGLE [facility] Start: 06-16-2023 End: 06-16-[facility] Start: 03-14-2023 End: 03-14-2023 ambulatory JACK BENDER Facility:[facility] Start: 03-03-2023 End: 03-03-2023 ambulatory MEHDI PABON . Facility:[facility] Start: 02-27-2023 End: 02-27-2023 ambulatory MEHDI PABON . Facility:[facility] Start: 02-07-2023 End: 02-07-[address] RAMÍREZ AHMADI . Facility:[facility] Start: 01-25-2023 End: 01-25-2023 ambulatory WALT RAMOS . Facility:[facility] Start: 01-14-2023 End: 01-14-2023 ambulatory MEHDI PABON . Facility:[facility] Start: 01-03-2023 End: 01-03-2023 ambulatory JACK BENDER Facility:[facility] Start: 06-06-2022 End: 06-06-2022 Emergency department patient visit APURVA ENGLE [facility] Start: 06-06-2022 End: 06-06-2022 Emergency department patient visit Markell Fernando DO Work Phone: [facility] ED Comment on above: Abdominal cramps (Pr imary Dx); Vaginal spotting; Acute cystitis with hematuria Start: 09-14-2021 End: 09-14-2021 Subsequent hospital visit by physician Lex Willson MD Work Phone: [facility] Start: 08-18-2021 End: 08-20-2021 Subsequent hospital visit by physician Moisés Us Ge Xd [facility] Comment on above: Neurogenic bladder; Pelviectasis of kidney; Mitrofanoff appendicovesicostomy present (HCC) Start: 02-18-2021 End: 02-20-2021 Subsequent hospital visit by physician Moisés Us Ge Xd [facility] Comment on above: Pelviectasis of kidn ey; Neurogenic bladder Start: 02-18-2021 End: 02-18-2021 Subsequent hospital visit by physician Apurva Engle DO Work Phone: [facility] Comment on above: CRI (chronic renal i nsufficiency), unspecified stage Start: 11-25-2020 End: 11-25-2020 Subsequent hospital visit by physician Ginny JOHNS Laboratory Comment on above: CRI (chronic renal i nsufficiency), unspecified stage Start: 07-23-2020 End: 07-23-2020 Subsequent hospital visit by physician Ginny TALBERTVMarcia Laboratory Comment on above: CRI (chronic renal i nsufficiency), unspecified stage Start: 05-28-2020 End: 05-28-2020 Subsequent hospital visit by physician Moisés Peds Echo Rm 1 [facility] Comment on above: Arrived Start: 04-23-2020 End: 04-23-2020 Subsequent hospital visit by physician Ginny TALBERTVMarcia Laboratory Comment on above: Hydronephrosis of le ft kidney; Chronic renal impairment, unspecified CKD stage Neurogenic bladder Start: 03-25-2020 End: 03-25-2020 Subsequent hospital visit by physician Amelia Rich Work Phone: [facility] Start: 03-21-2020 End: 03-26-2020 Patient encounter procedure [facility] Start: 03-21-2020 End: 03-25-2020 Subsequent hospital visit by physician Denisse Arredondo [facility] Start: 11-05-2019 End: 11-05-2019 Subsequent hospital visit by physician Ginny Varela MD Work Phone: [facility] Comment on above: CRI (chronic renal i nsufficiency), unspecified stage Start: 10-03-2019 End: 10-03-2019 Subsequent hospital visit by physician Ginny Varela MD Work Phone: [facility] Laboratory Comment on above: Neurogenic bladder; Currarino syndrome; Aortic root dilatation (HCC) Arrived Start: 06-27-2017 End: 07-07-2017 Patient encounter status Paulina Cassidy [employer] [facility] Medical Equipment Procedure Code Equipment Code Equipment Origin al Text Equipment Identifier Dates Rti Frz C/C Chip s 30cc - [id number] - [id number] Start: 07-07-2017 Comment on above: Description: 07/18/17 Added Zero to Serial no. [id number]) to link with [employer]. TWing RN Ozzy Spnl Meagan 600 mm 6mm Cmpr Ti - [id number] Start: 07-07-2017 Blck Spnl Meagan 3 - [id number] Start: 07-07-2017 Meagan Uni Redux Screw 5.5 X 35 [id number] Start: 07-07-2017 Immunizations Immunization Date Immunization Notes Care Provider Jeffrey griffiths 03-31-2021 COVID-19, Moderna, Primary or Immunocompromised, PF, 100mcg/0.5mL [facility] [address] Work Phone: 03-05-2021 COVID-19, Moderna, Primary or Immunocompromised, PF, 100mcg/0.5mL [facility] [address] 09-24-2019 meningococcal B vacc ine, recombinant, OMV, adjuvanted [facility] [address] Work Phone: 08-24-2019 influenza, injectabl e, quadrivalent, preservative free [facility] [address] Work Phone: 08-24-2019 meningococcal B vacc ine, recombinant, OMV, adjuvanted [facility] [address] Work Phone: 08-24-2019 meningococcal polysaccharide (groups A, C, Y and W-135) diphtheria toxoid conjugate vaccine (MCV4P) [facility] [address] Work Phone: 08-24-2019 influenza virus vacc ine, unspecified formulation Paulina Cassidy [facility] 08-14-2018 influenza, injectabl e, quadrivalent, preservative free [facility] Work Phone: 10-04-2017 influenza, injectabl e, quadrivalent, preservative free [facility] Work Phone: 08-23-2016 Human Papillomavirus 9-valent vaccine v [facility] Work Phone: 08-23-2016 influenza, injectabl e, quadrivalent, preservative free v [facility] Work Phone: 11-11-2015 Human Papillomavirus 9-valent vaccine [facility] Work Phone: 07-24-2015 influenza virus vacc ine, whole virus Ginny Varela MD Work Phone: [facility] 11-07-2013 Human Papillomavirus 9-valent vaccine [facility] Work Phone: 11-07-2013 influenza, injectabl e, quadrivalent, preservative free [facility] Work Phone: 11-07-2013 meningococcal polysaccharide (groups A, C, Y and W-135) diphtheria toxoid conjugate vaccine (MCV4P) [facility] Phone: 11-07-2013 tetanus toxoid, redu mohit diphtheria toxoid, and acellular pertussis vaccine, adsorbed [facility] Work Phone: 07-22-2008 hepatitis A vaccine, pediatric/adolescent dosage, 2 dose schedule [facility] Phone: 12-18-2007 hepatitis A vaccine, pediatric/adolescent dosage, 2 dose schedule [facility] Work Phone: 12-18-2007 varicella virus vaccine [facility] Work Phone: 09-12-2006 diphtheria, tetanus toxoids and acellular pertussis vaccine [facility] Phone: 09-12-2006 influenza virus vacc ine, whole virus [facility] Work Phone: 09-12-2006 measles, mumps and rubella virus vaccine [facility] Work Phone: 09-12-2006 poliovirus vaccine, inactivated [facility] [employer] Work Phone: 10-12-2004 influenza virus vacc ine, whole virus [facility] Work Phone: 08-15-2003 diphtheria, tetanus toxoids and acellular pertussis vaccine, unspecified formulation [facility] Work Phone: 08-15-2003 haemophilus influenz ae type b vaccine, conjugate unspecified formulation [facility] Work Phone: 08-15-2003 measles, mumps and rubella virus vaccine [facility] Work Phone: 08-15-2003 varicella virus vaccine [facility] [employer] Work Phone: 04-25-2003 hepatitis B vaccine, pediatric or pediatric/adolescent dosage [facility] Work Phone: 02-13-2003 diphtheria, tetanus toxoids and acellular pertussis vaccine, unspecified formulation [facility] Phone: 02-13-2003 haemophilus influenz ae type b vaccine, conjugate unspecified formulation [facility] Work Phone: 02-13-2003 pneumococcal conjuga te vaccine, 7 valent [facility] [employer] Work Phone: 02-13-2003 poliovirus vaccine, unspecified formulation [facility] Work Phone: 2002 diphtheria, tetanus toxoids and acellular pertussis vaccine, unspecified formulation [facility] [employer] Work Phone: 2002 haemophilus influenz ae type b vaccine, conjugate unspecified formulation [facility] Phone: 2002 pneumococcal conjuga te vaccine, [address] Work Phone: 2002 poliovirus vaccine, unspecified formulation [facility] Phone: 2002 diphtheria, tetanus toxoids and acellular pertussis vaccine, unspecified formulation [facility] Phone: 2002 haemophilus influenz ae type b vaccine, conjugate unspecified formulation [employer] Phone: 2002 hepatitis B vaccine, pediatric or pediatric/adolescent dosage [facility] [employer] Phone: 2002 pneumococcal conjuga te vaccine, 7 valent [facility] [employer] Phone: 2002 poliovirus vaccine, unspecified formulation [facility] Phone: 2002 hepatitis B vaccine, pediatric or pediatric/adolescent dosage [facility] [employer] Phone: Medications Current Medications Medication Drug Class(es) Dates Sig (Normalized) Sig (Original) acetaminophen (TYLENOL) 40 MG/0.4 ML infant drops (3 sources) Start: 06-22-2006 acetaminophen (TYLENOL) 40 MG/0.4 ML drops ACETAMINOPHEN ORAL 0 06/22/2006 Active Acetaminophen / HYDROcodone (1 source) Opioid Agonist Start: 03-25-2020 End: 03-25-2020 HYDROcodone-acetamin ophen (NORCO) 5-325 MG per tablet 1 tablet [id number] 200 actuat albuterol 0.09 mg/actuat metered dose inhaler (20 sources) beta2-Adrenergic Agonist Start: 08-14-2014 PROAIR HFA 108 (90 BASE) MCG/ACT inhaler Start: 08-14-2014 albuterol sulf ate HFA (PROAIR HFA) 108 (90 Base) MCG/ACT inhaler Inhale 2 puffs into the lungs 0 08/14/2014 Active Start: 08-14-2014 PROAIR HFA 108 (90 BASE) MCG/ACT inhaler Start: 08-14-2014 albuterol sulf ate HFA (PROAIR HFA) 108 (90 Base) MCG/ACT inhaler Inhale 2 puffs into the lungs 0 08/14/2014 Active albuterol 0.833 mg/ml / ipratropium bromide 0.167 mg/ml inhalation solution (16 sources) Anticholinergic, beta2-Adrenergic Agonist take 1 dose by inhalation every four hours ipratropium-albuterol (DUONEB) 0.5-2.5 (3) MG/3ML SOLN nebulizer solution Inhale 1 vial into the lungs every 4 hours 0 Active azithromycin 500 mg oral tablet (1 source) Macrolide Antimicrobial Start : 11-19 End: 11-20 take 2 tablets by mouth in the morning azithromycin (ZITHROMAX) 500 mg tablet Indications: Chlamydia infection Take 2 tablets (1,000 mg total) by mouth in the morning for 1 day. 2 tablet 0 11/19/2023 11/20/2023 Active augmented betamethasone 0.5 mg/ml topical cream (4 sources) Corticosteroid Start : 03-25 End: 04-24 augmented betamethasone dipropionate (DIPROLENE AF) 0.05 % cream Apply topically 3 times daily to stoma. 1 Tube 0 03/25/2020 04/24/2020 Active calcitriol 0.58309 mg oral capsule (16 sources) Vitamin D3 Analog Start : 11-25 calcitRIOL (ROCALTROL) 0.25 MCG capsule Indications: CRI (chronic renal insufficiency), unspecified stage Take one capsule three times a week 12 capsule 6 11/25/2020 Active Start: 07-01-2020 take 1 capsule by mo ut three times weekly calcitRIOL (ROCALTROL) 0.25 MCG capsule Indications: CRI (chronic renal insufficiency), unspecified stage TAKE 1 CAPSULE BY MOUTH THREE TIMES A WEEK 12 capsule 0 07/01/2020 Active Start: 03-03-2020 take 1 capsule by mo uth three times weekly calcitRIOL (ROCALTROL) 0.25 MCG capsule Indications: CRI (chronic renal insufficiency), unspecified stage Take 1 capsule by mouth three times a week 12 capsule 2 03/03/2020 Active Start: 11-05-2019 take 1 capsule by mo ut three times weekly calcitRIOL (ROCALTROL) 0.25 MCG capsule Indications: CRI (chronic renal insufficiency), unspecified stage TAKE 1 CAPSULE BY MOUTH THREE TIMES A WEEK 12 capsule 0 11/05/2019 Active Start: 09-05-2019 take 1 capsule by mo uth three times weekly calcitRIOL (ROCALTROL) 0.25 MCG capsule Indications: CRI (chronic renal insufficiency), unspecified stage TAKE 1 CAPSULE BY MOUTH THREE TIMES A WEEK 12 capsule 0 09/05/2019 Active calcium chloride 0.0014 meq/ml / potassium chloride 0.004 meq/ml / sodium chloride 0.103 meq/ml / sodium lactate 0.028 meq/ml injectable solution (1 source) Start: 09-14-2021 lactated ringe rs infusion Catheter Syringes 60 ML MISC (6 sources) Start: 05-01-2021 Catheter Syrin ges 60 ML MISC Indications: Neurogenic bladder , Mitrofanoff appendicovesicostomy present (HCC) Use as directed once daily for bladder irrigations. 30 each 05/01/2021 Active Start: 02-18-2021 Catheter Syrin ges 60 ML MISC Indications: Neurogenic bladder , Mitrofanoff appendicovesicostomy present (HCC) Use as directed once daily for bladder irrigations. 30 each 02/18/2021 Active Catheters MISC (16 sources) Start: 02-18-2021 Catheters MISC Indications: Neurogenic bladder , Mitrofanoff appendicovesicostomy present (HCC) 14 Fr. Latex free, intermittent urinary catheters. Male length. Use as directed 4 times daily. With insertion supplies 120 each 02/18/2021 Active Start: 03-28-2020 Catheters MISC Indications: Neurogenic bladder , Mitrofanoff appendicovesicostomy present (HCC) 14 Fr. Latex free, intermittent urinary catheters. Male length. Use as directed 4 times daily. With insertion supplies 120 each 03/28/2020 Active Start: 08-30-2018 Catheters MISC 12 Fr. Latex free, intermittent urinary catheters. Male length. Use as directed 4 times daily. With insertion supplies 120 each 08/30/2018 Active cholecalciferol 0.05 mg oral tablet (16 sources) Vitamin D Cholecalciferol 2000 UNITS TABS Take 1,000 Units by mouth daily 0 Active enalapril maleate 2.5 mg oral tablet (3 sources) Angiotensin Converting Enzyme Inhibitor Start: 09-05-20 19 take 1 tablet by mouth once daily enalapril (VASOTEC) 2.5 MG tablet Indications: HTN, age 0-18 TAKE 1 TABLET BY MOUTH ONCE DAILY 30 tablet 0 09/05/2019 Active escitalopram 20 mg oral tablet (15 sources) Serotonin Reuptake Inhibitor Start: 08-11-20 21 take 1 tablet by mouth once daily escitalopram (LEXAPRO) 20 MG tablet take 1 tablet by mouth once daily 0 08/11/2021 Active End: 09-14-2021 take 2 tablets by mouth once daily escitalopram (LEXAPRO) 10 MG tablet Take 20 mg by mouth daily 0 09/14/2021 Discontinued (Stop Taking at Discharge) escitalopram (LE XAPRO) 10 MG tablet Take 15 mg by mouth daily 0 Active famotidine 20 mg oral tablet (7 sources) Histamine-2 Receptor Antagonist Start: 03-03-2020 take 1 tablet by mouth twice daily famotidine (PEPCID) 20 MG tablet Take 1 tablet by mouth 2 times daily 60 tablet 3 03/03/2020 Active 2 ml fentaNYL 0.05 mg/ml injection (5 sources) Opioid Agonist Start: 09-14-2021 fentaNYL (SUBLIMAZE) injection 50 mcg Start: 09-14-2021 fentaNYL (SUBL IMAZE) injection 25 mcg Start: 03-25-2020 fentaNYL (SUBL IMAZE) injection 50 mcg Start: 03-25-2020 fentaNYL (SUBL IMAZE) injection 25 mcg fludrocortisone 0.1 mg oral tablet (6 sources) Start: 03-03-2020 End: 08-30-2020 take 1 tablet by mouth once daily fludrocortisone (FLORINEF) 0.1 MG tablet Take 1 tablet by mouth daily 30 tablet 5 03/03/2020 08/30/2020 Active guanFACINE 1 mg oral tablet (3 sources) Central alpha-2 Adrenergic Agonist take 1 tablet by mouth once daily in the morning guanFACINE (TENEX) 1 MG tablet Take 1 mg by mouth every morning 0 Active ibuprofen 200 mg oral tablet (16 sources) Nonsteroidal Anti-inflammatory Drug take 1 tablet by mouth every six hours as needed for pain ibuprofen (ADVIL;MOTRIN) 200 MG tablet Take 200 mg by mouth every 6 hours as needed for Pain 0 Active imiquimod 50 mg/ml topical cream (1 source) Start: 01-16-2024 imiquimod (ALDARA) 5 % cream Apply 1 packet topically 3 (three) times a week. Wash hands prior to and following application. 12 each 0 01/16/2024 Active 10 ml lidocaine hydrochloride 10 mg/ml injection (1 source) Antiarrhythmic, Amide Local Anesthetic Start: 09-14-2021 End: 09-14-2021 lidocaine PF 1 % injection 1 mL 1 ml medroxyPROGESTERone acetate 150 mg/ml injection (6 sources) Progestin medroxyPROGESTER one (DEPO-PROVERA) 150 MG/ML injection Inject 150 mg into the muscle every 3 months 0 Active meperidine hydrochloride 50 mg/ml injectable solution (1 source) Opioid Agonist Start: 09-14-2021 meperidine (DEMEROL) injection 12.5 mg metroNIDAZOLE 0.0075 mg/mg vaginal gel (2 sources) Nitroimidazole Antimicrobial Start: 11-16-2023 End: 11-21-2023 metroNIDAZOLE (METROGEL) 0.75 % (37.5mg/5 gram) vaginal gel Indications: BV (bacterial vaginosis) Insert 1 applicator into the vagina nightly for 5 days. 45 g 0 11/16/2023 11/21/2023 Active 2 ml midazolam 1 mg/ml injection (1 source) Benzodiazepine Start: 09-14-2021 midazolam PF (VERSED) injection 1 mg montelukast 10 mg oral tablet (10 sources) Leukotriene Receptor Antagonist take 1 tablet by mouth once daily montelukast (SINGULAIR) 10 MG tablet Take 10 mg by mouth nightly 0 Active omeprazole 20 mg delayed release oral capsule (8 sources) Proton Pump Inhibitor Start: 07-22-2021 omeprazole (PRILOSEC) 20 MG delayed release capsule End: 09-14-2021 take 1 capsule by mouth once daily omeprazole (PRILOSEC) 10 MG delayed release capsule Take 10 mg by mouth daily 0 09/14/2021 Discontinued (Stop Taking at Discharge) 2 ml ondansetron 2 mg/ml injection (2 sources) Serotonin-3 Receptor Antagonist Start: 09-14-2021 End: 09-14-2021 ondansetron (ZOFRAN) injection 4 mg sulfamethoxazole 800 mg / trimethoprim 160 mg oral tablet (19 sources) Dihydrofolate Reductase Inhibitor Antibacterial, Sulfonamide Antimicrobial Start: 12-15-2021 take 1 tablet by mouth once daily sulfamethoxazole -trimethoprim (BACTRIM DS;SEPTRA DS) 800-160 MG per tablet TAKE 1 TABLET BY MOUTH ONCE DAILY 30 tablet 5 12/15/2021 Active Start: 03-25-2021 take 1 tablet by jw th once daily sulfamethoxazole-trimethoprim (BACTRIM DS;SEPTRA DS) 800-160 MG per tablet TAKE 1 TABLET BY MOUTH ONCE DAILY 30 tablet 5 03/25/2021 Active Start: 01-22-2021 take 1 tablet by jw th once daily sulfamethoxazole-trimethoprim (BACTRIM DS;SEPTRA DS) 800-160 MG per tablet TAKE 1 TABLET BY MOUTH ONCE DAILY 30 tablet 0 01/22/2021 Active Start: 11-07-2020 take 1 tablet by jw th once daily sulfamethoxazole-trimethoprim (BACTRIM DS;SEPTRA DS) 800-160 MG per tablet TAKE 1 TABLET BY MOUTH ONCE DAILY 30 tablet 0 11/07/2020 Active Start: 05-09-2020 take 1 tablet by jw th once daily sulfamethoxazole-trimethoprim (BACTRIM DS;SEPTRA DS) 800-160 MG per tablet TAKE 1 TABLET BY MOUTH ONCE DAILY 30 tablet 3 05/09/2020 Active Start: 03-25-2020 End: 03-28-2020 take 1 tablet by mouth twice daily sulfamethoxazole-trimethoprim (BACTRIM DS;SEPTRA DS) 800-160 MG per tablet Take 1 tablet by mouth 2 times daily for 3 days 6 tablet 0 03/25/2020 03/28/2020 Active Start: 02-26-2019 End: 03-25-2020 take 1 tablet by mouth once daily sulfamethoxazole-trimethoprim (BACTRIM DS;SEPTRA DS) 800-160 MG per tablet TAKE 1 TABLET BY MOUTH ONCE DAILY 30 tablet 11 04/27/2019 Active Completed/Discontinued Medications Medication Drug Class(es) Dates Sig (Normalized) Sig (Original) 50 ml sodium chloride 9 mg/ml injection (4 sources) Start: 06-06-2022 End: 06-06-2022 0.9 % sodium chloride bolus Start: 02-18-2021 End: 02-25-2021 sodium chloride (CURITY STER ILE SALINE) 0.9 % irrigation Irrigate bladder with 120 ml daily--push in and pull back 4000 mL 12 02/18/2021 02/25/2021 Active Payers Date Payer Category Payer [employer] ( [employer] others) xxxxxxxxxxx [id number] 2017 [employer] ( [employer] others) [id number] 2014 Unknown [facility] xxxxxxxxxxxx 2014-Present [phone] [address] [place] [address] xxxxxxxxxxxx [id number] 2003 Medicaid [employer] [employer] [employer] [id number] 2003-Present [phone] [address] [place] [address] [id number] 2002 Unknown [id number] 2.16.840.1.817014.3.579.2 .176 2002 Unknown [id number] 2.16.840.1.026023.3.579.2 .593 2002 Unknown [id number] 2.16.840.1.530119.3.579.2 .593 2002 Unknown [id number] 2.16.840.1.426350.3.579.2 .593 2002 Unknown [id number] 2.16.840.1.446959.3.579.2 .593 2002 Unknown [id number] 2.16.840.1.613677.3.579.2 .593 2002 Unknown [id number] 2.16.840.1.523064.3.579.2 .593 2002 Unknown [id number] 2.16.840.1.085225.3.579.2 .593 2002 Unknown [id number] 2.16.840.1.663380.3.579.2 .1286 2002 Unknown [id number] 2.16.840.1.010582.3.579.2 .1286 2002 Unknown [id number] 2.16.840.1.288384.3.579.2 .175 2002 Unknown [id number] 2.16.840.1.319082.3.579.2 .1286 2002 Unknown [id number] 2.16.840.1.711001.3.579.2 .1286 2002 Unknown [id number] 2.16.840.1.841523.3.579.2 .1286 2002 Unknown [id number] 2.16.840.1.619895.3.579.2 .1286 2002 Unknown [id number] 2.16.840.1.534349.3.579.2 .1286 2002 Unknown [id number] 2.16.840.1.409617.3.579.2 .1286 2002 Unknown [id number] 2.16.840.1.634111.3.579.2 .1286 2002 Unknown [id number] 2.16.840.1.254699.3.579.2 .1286 2002 Unknown [id number] 2.16.840.1.313963.3.579.2 .1286 1959 Unknown [id number] 1955 Unknown [id number] 2.16.840.1.528916.3.579.2 .173 Plan of Treatment Date Care Activity Detail Author Start: 11-15-2026 Screening for malign ant neoplasm of cervix Pap Smear [facility] Start: 01-15-2025 Adult BMI Screening Adult BMI Screen ing [facility] Start: 01-15-2025 Tobacco Screening Tobacco Screening [facility] Start: 12-07-2024 Adult BMI Screening Adult BMI Screen ing [facility] Start: 12-07-2024 Tobacco Screening Tobacco Screening [facility] Start: 11-15-2024 Adult BMI Screening Adult BMI Screen ing [facility] Start: 11-15-2024 Depression Screening Depression Scre ening [facility] Start: 11-15-2024 Screening for Chlamy tariq trachomatis Chlamydia Screening [facility] Start: 11-15-2024 Tobacco Screening Tobacco Screening [facility] Start: 11-07-2024 Adult BMI Screening Adult BMI Screen ing [facility] Start: 11-07-2024 Tobacco Screening Tobacco Screening [facility] Start: 10-04-2024 Tobacco Screening Tobacco Screening [facility] Start: 07-14-2024 Adult BMI Screening Adult BMI Screen ing [facility] Start: 06-17-2024 Influenza vaccination Influenza Vacc ine [facility] Start: 03-13-2024 End: 03-13-2024 Patient encounter procedure 03/13/2024 2:45 PM EDT Office Visit [facility] [address] [place] [address] [place] [address] Hunter Villarreal MD [address] [place] [address] [facility] Start: 02-06-2024 End: 02-06-2024 Patient encounter procedure 02/06/2024 10:30 AM EDT Procedure visit [facility] [place] [phone] Kathryn Nettles MD [facility] [address] [place], [place] [id number] [facility] Start: 01-18-2024 Screening for Chlamy tariq trachomatis Chlamydia Screening [facility] Start: 12-07-2023 End: 12-07-2023 Patient encounter procedure 12/07/2023 9:00 AM EST Office Visit [facility] [address] [place] [address] Ac Mariee MD [address] [place] [address] [facility] Start: 11-15-2023 End: 11-15-2023 Patient encounter procedure 11/15/2023 10:00 AM EST Office Visit [facility] [address] [id number] Kathryn Nettles MD [facility] [address] [address] [facility] Start: 11-07-2023 DTaP,Tdap and Td Vaccines (7 - Td or Tdap) DTaP,Tdap and Td Vaccines (7 - Td or Tdap) [facility] Start: 11-07-2023 DTaP/Tdap/Td vaccine (7 - Td or Tdap) DTaP/Tdap/Td vaccine (7 - Td or Tdap) [facility] Start: 11-07-2023 DTaP/Tdap/Td vaccine (7 - Td) DTaP/Tdap/Td vaccine (7 - Td) [facility] Work Phone: Start: 2023 Screening for malign ant neoplasm of cervix Pap Smear [facility] Start: 06-17-2023 COVID-19 Vaccine ( season) COVID-19 Vaccine ( season) [facility] Start: 06-17-2023 Influenza vaccination Influenza Vacc ine [facility] Start: 06-17-2022 Influenza vaccination Flu vaccine (# 1) [facility] Start: 02-15-2022 End: 02-15-2022 Patient encounter procedure [facility] Start: 09-14-2021 End: 09-14-2021 URETEROSCOPY STONE REMOVAL LASER URETEROSCOPY STONE REMOVAL LASER NEUROGENIC BLADDER, BLADDER STONE 09/14/2021 1:51 PM EST [facility] Start: 08-31-2021 COVID-19 Vaccine (3 - Booster for Moderna series) COVID-19 Vaccine (3 - Booster for Moderna series) [facility] Start: 06-17-2021 Influenza vaccination [facility] Start: 05-28-2021 End: 05-28-2021 Patient encounter procedure 05/28/2021 Office Visit Pediatric Cardiology Katia Mei MD [address] [facility] [address] [place] [address] [phone] [facility] Start: 02-18-2021 End: 02-18-2021 Appointment [facility] Start: 11-28-2020 End: 11-28-2020 Office Visit 11/28/2020 Office Visit Pediatric Cardiology Katia Mei MD [address] [facility] [address] [place] [address] [phone] [facility] Start: 11-25-2020 End: 11-25-2020 Office Visit 11/25/2020 Office Visit Pediatric Nephrology Nikko Bell MD [address] [facility], [facility] [address] [place] [address] [phone] [facility] Start: 10-01-2020 End: 10-01-2020 Office Visit 10/01/2020 Office Visit Pediatric Cardiology Dioni Donnelly MD [address] [facility] [address] [place] [address] [phone] [facility] Start: 07-29-2020 End: 07-29-2020 Office Visit 07/29/2020 Office Visit Pediatric Nephrology Nikko Bell MD [address] [facility], [facility] [address] [place] [address] [phone] [facility] Start: 2020 Adult BMI Follow Up Plan Adult BMI Follow Up Plan [facility] Start: 2020 Hepatitis C screening Hepatitis C sc re[facility] [employer] Start: 06-17-2020 Influenza vaccination Flu vaccine (# 1) [facility] [place], [place] Start: 05-28-2020 End: 05-28-2020 Office Visit 05/28/2020 Office Visit Pediatric Cardiology Dioni Donnelly MD [address] [facility] [address] [place], [place] [phone] [facility] Start: 04-24-2020 Creatinine monitoring Creatinine mon itoring [facility] Phone: Start: 04-24-2020 Potassium monitoring Potassium monit oring [facility] Phone: Start: 03-24-2020 End: 03-24-2020 Patient encounter procedure [facility] Start: 10-15-2019 End: 10-15-2019 Patient encounter procedure 10/15/2019 Office Visit Pediatric Nephrology Nikko Bell MD [address] [facility] [address] [place], [place] [phone] [facility] Start: 06-17-2019 Influenza vaccination Flu vaccine (# 1) [facility] Phone: Start: 2018 Chlamydia screen Chlamydia screen [facility] Phone: Start: 2018 COVID-19 Vaccine (1) COVID-19 Vaccin e (1) [facility]: Start: 2018 Meningococcal (ACWY) Vaccine (1 - 2-dose series) Meningococcal (ACWY) Vaccine (1 - 2-dose series) [facility]: Start: 2018 Screening for Chlamy tariq trachomatis Chlamydia screen [facility] Start: 2017 HIV screen HIV screen [facility] [employer] Phone: Start: 2017 HIV screening HIV screen [facility] Start: 2014 Depression Screen Depression Screen [email or web address] Start: 2014 Depression Screening Depression Scre jos [employer] Start: 2013 HPV vaccine (1 - Fem tj 2-dose series) HPV vaccine (1 - Female 2-dose series) [employer] Phone: Start: 2009 DTaP/Tdap/Td vaccine (1 - Tdap) DTaP/Tdap/Td vaccine (1 - Tdap) [employer] Phone: Start: 2003 Hepatitis A vaccine (1 of 2 - 2-dose series) Hepatitis A vaccine (1 of 2 - 2-dose series) [employer] Phone: Start: 2003 Measles,Mumps,Rubell a (MMR) vaccine (1 of 2 - Standard series) Measles,Mumps,Rubella (MMR) vaccine (1 of 2 - Standard series) [employer] Phone: Start: 2003 Varicella Vaccine (1 of 2 - 2-dose childhood series) Varicella Vaccine (1 of 2 - 2-dose childhood series) [employer] Phone: Start: 2002 Polio vaccine 0-18 ( 1 of 3 - 4-dose series) Polio vaccine 0-18 (1 of 3 - 4-dose series) [employer] Phone: Start: 2002 Hepatitis B vaccine (1 of 3 - 3-dose primary series) Hepatitis B vaccine (1 of 3 - 3-dose primary series) [employer] Phone: Start: 2002 Hepatitis C screening Hepatitis C sc reen [facility] Start: 2002 Tobacco Counseling Tobacco Counselin g [employer] End: 11-15-2024 Chlamydia/GC by PCR ThinPrep fluid Chlamydia/GC by PCR [employer] fluid Microbiology Routine Screening for STD (sexually transmitted disease) 1 Occurrences starting 11/15/2023 until 11/15/2024 [employer] Comment on above: 1 Occurrences starti ng 11/15/2023 until 11/15/2024 Culture, Urine [employer] Comment on above: Release Upon Orderin g for 1 Occurrences starting 03/25/2020 End: 06-06-2022 Culture, Urine Culture, Urine Microbiology Routine Once for 1 Occurrences starting 06/06/2022 until 06/06/2022 [employer] Phone: Comment on above: Once for 1 Occurrenc es starting 06/06/2022 until 06/06/2022 Culture, Urine Culture, Urine Microbiology Routine 06/06/2022 12:46 AM EDT [employer] Phone: End: 04-23-2020 Cystatin C Cystatin C Lab Routine Neurogenic bladder 1 Occurrences starting 04/23/2020 until 04/23/2020 [employer] Comment on above: 1 Occurrences starti ng 04/23/2020 until 04/23/2020 Cystatin C [employer] Phone: End: 11-05-2019 Cystatin C Cystatin C Lab Routine CRI (chronic renal insufficiency), unspecified stage 1 Occurrences starting 11/05/2019 until 11/05/2019 [employer] Phone: Comment on above: 1 Occurrences starti ng 11/05/2019 until 11/05/2019 End: 11-15-2024 Cytopathology procedure, preparation of smear, genital source Pap Smear Pathology and Cytology Routine Smear, vaginal, as part of routine gynecological examination 1 Occurrences starting 11/15/2023 until 11/15/2024 [employer] Phone: Comment on above: 1 Occurrences starti ng 11/15/2023 until 11/15/2024 End: 11-07-2024 Follicle stimulating hormone Follicle stimulating hormone Lab Routine Irregular bleeding 1 Occurrences starting 11/07/2023 until 11/07/2024 [employer] Comment on above: 1 Occurrences starti ng 11/07/2023 until 11/07/2024 End: 11-24-2024 High Risk HPV w/Mandi High Risk HPV w/Mandi Lab Routine Cervical smear, as part of routine gynecological examination 1 Occurrences starting 11/24/2023 until 11/24/2024 [employer] Phone: Comment on above: 1 Occurrences starti ng 11/24/2023 until 11/24/2024 Human papilloma viru s 31+33+35+39+45+51+52+56+ 58+59+66+68 DNA [Presence] in Cervix by DADA with probe detection High risk HPV w/mandi Lab Routine Cervical smear, as part of routine gynecological examination 11/24/2023 9:34 AM EST [employer] Initiate Oxygen Ther apy Protocol Initiate Oxygen Therapy Protocol Respiratory Care Routine Daily until discontinued starting 03/25/2020 [facility] [place] Comment on above: Daily until disconti nued starting 03/25/2020 End: 09-14-2021 Intermittent pulse oximetry Pulse Oximetry Spot Check Respiratory Care Routine One Time for 1 Occurrences starting 09/14/2021 until 09/14/2021 [employer] Phone: Comment on above: One Time for 1 Occur rences starting 09/14/2021 until 09/14/2021 End: 11-07-2024 Luteinizing hormone Luteinizing hormone Lab Routine Irregular bleeding 1 Occurrences starting 11/07/2023 until 11/07/2024 [employer] Work Phone: Comment on above: 1 Occurrences starti ng 11/07/2023 until 11/07/2024 End: 10-03-2019 Miscellaneous Sendout 1 Miscellaneous Sendout 1 Lab Routine Neurogenic bladder Currarino syndrome Aortic root dilatation (HCC) 1 Occurrences starting 10/03/2019 until 10/03/2019 [facility] Work Phone: Comment on above: 1 Occurrences starti ng 10/03/2019 until 10/03/2019 Miscellaneous Sendout 1 Miscella neous Sendout 1 Lab Routine Neurogenic bladder Currarino syndrome Aortic root dilatation (HCC) 10/03/2019 4:28 PM EST [facility] Work Phone: Oxygen therapy [Mini mum Data Set] Initiate Oxygen Therapy Protocol Respiratory Care Routine Daily until discontinued starting 09/14/2021 [employer] Phone: Comment on above: Daily until disconti nued starting 09/14/2021 Oxygen therapy [Mini mum Data Set] Initiate Oxygen Therapy Protocol Respiratory Care Routine Daily until discontinued starting 09/14/2021 [employer] Phone: Comment on above: Daily until disconti nued starting 09/14/2021 Phase I & II - meter ed glucose Phase I & II - metered glucose Point of Care Testing Routine As Needed until discontinued starting 03/25/2020 [facility] [place], [place] Comment on above: As Needed until disc ontinued starting 03/25/2020 Phase I & II - meter ed glucose Phase I & II - metered glucose Point of Care Testing Routine As Needed until discontinued starting 09/14/2021 [employer] Phone: Comment on above: As Needed until disc ontinued starting 09/14/2021 End: 09-14-2021 POCT urine POCT urine Point of Care Testing STAT One Time for 1 Occurrences starting 09/14/2021 until 09/14/2021 [employer] Phone: Comment on above: One Time for 1 Occur rences starting 09/14/2021 until 09/14/2021 End: 11-07-2024 Prolactin Prolactin Lab Routine Irregular bleeding 1 Occurrences starting 11/07/2023 until 11/07/2024 [employer] Comment on above: 1 Occurrences starti ng 11/07/2023 until 11/07/2024 End: 11-07-2024 Thyroid profile includes TSH FT4 Thyroid profile includes TSH FT4 Lab Routine Irregular bleeding 1 Occurrences starting 11/07/2023 until 11/07/2024 [employer] Comment on above: 1 Occurrences starti ng 11/07/2023 until 11/07/2024 End: 09-14-2021 Urine , POCT Urine , POCT Point of Care Testing Routine One Time for 1 Occurrences starting 09/14/2021 until 09/14/2021 [employer] Phone: Comment on above: One Time for 1 Occur rences starting 09/14/2021 until 09/14/2021 End: 11-15-2024 Vaginitis Panel PCR Vaginitis Panel PCR Microbiology Routine Screening for STD (sexually transmitted disease) 1 Occurrences starting 11/15/2023 until 11/15/2024 [facility] Comment on above: 1 Occurrences starti ng 11/15/2023 until 11/15/2024 Problems Active Problems Problem Classification Problem Date Documented Da te Episodic/Chronic Abdominal pain (11 sources) Finding of sensation of abdomen; Translations: [Unspecified abdominal pain] Onset: 01-03-2023 Episodic Aortic; peripheral; and visceral artery aneurysms (2 sources) Aortic root dilatation; Translations: [Thoracic aortic ectasia] Onset: 01-10-2024 Chronic Bacterial infection; unspecified site (1 source) Chlamydial infection; Translations: [Chlamydial infection, unspecified] 11-19-2023 Episodic Cancer of cervix (2 sources) Cervical atypism; Translations: [Atypical squamous cells of undetermined significance on cytologic smear of cervix (ASC-US)] Onset: 11-29-2023 11-29-2023 Episodic Chronic kidney disease (20 sources) Chronic renal insufficiency; Translations: [Chronic kidney disease, unspecified] Onset: 07-04-2013 Chronic Chronic kidney disease (14 sources) Chronic renal insufficiency; Translations: [Chronic kidney disease] Onset: 07-04-2013 07-04-2013 Complication of device; implant or graft (7 sources) Other mechanical complication of cystostomy catheter, initial encounter; Translations: [Unspecified complication of genitourinary prosthetic device, implant and graft, initial encounter] Onset: 02-27-2023 Episodic Gastritis and duodenitis (1 source) Gastritis, unspecified, without bleeding; Translations: [GASTRITIS UNS WITHOUT BLEEDING] Onset: 01-05-2023 Episodic Genitourinary symptoms and ill-defined conditions (2 sources) Urostomy present; Translations: [Appendico-vesicosto my status] Onset: 03-01-2023 Chronic Headache; including migraine (1 source) Headache; including migraine; Translations: [HEADACHE UNSPECIFIED] Onset: 01-26-2023 Inflammatory diseases of female pelvic organs (1 source) Bacterial vaginosis; Translations: [Acute vaginitis] 11-16-2023 Episodic Menstrual disorders (2 sources) Irregular periods; Translations: [Irregular menstruation, unspecified] Onset: 11-07-2023 11-07-2023 Chronic Other aftercare (4 sources) Encounter for follow-up examination after completed treatment for conditions other than malignant neoplasm; Translations: [ENC F/U EX AFTR CMPL TX NOT MAL CONRAD] Onset: 03-03-2023 Episodic Other bone disease and musculoskeletal deformities (10 sources) Adolescent idiopathic scoliosis of thoracic spine; Translations: [Adolescent idiopathic scoliosis, thoracic region] Onset: 07-07-2017 07-07-2017 Chronic Other congenital anomalies (1 source) Currarino triad Chronic Other connective tissue disease (4 sources) Pain in left finger(s); Translations: [PAIN IN LEFT FINGERS] Onset: 01-14-2023 Episodic Other diseases of bladder and urethra (20 sources) Neurogenic bladder; Translations: [Neuromuscular dysfunction of bladder, unspecified] Onset: 01-18-2019 01-18-2019 Chronic Other diseases of kidney and ureters (3 sources) Disorder of stature; Translations: [Renal osteodystrophy] Onset: 07-30-2013 07-30-2013 Chronic Other diseases of kidney and ureters (2 sources) Pyelectasia; Translations: [Other specified disorders of kidney and ureter] Chronic Other diseases of kidney and ureters (13 sources) Short stature disorder; Translations: [Renal osteodystrophy] Onset: 07-30-2013 07-30-2013 Chronic Other female genital disorders (1 source) Vaginal bleeding; Translations: [Abnormal uterine and vaginal bleeding, unspecified] Chronic Spondylosis; intervertebral disc disorders; other back problems (1 source) Radiculopathy, lumbar region; Translations: [RADICULOPATHY LUMBAR REGION] Onset: 02-09-2023 Episodic Substance-related disorders (1 source) Nicotine dependence, cigarettes, uncomplicated; Translations: [NICOTINE DEPEND CIGARETTES UNCOMP] Onset: 01-26-2023 Chronic Unclassified (3 sources) LOW BACK PAIN, UNSPECIFIED; Translations: [LOW BACK PAIN, UNSPECIFIED] Onset: 02-09-2023 Unclassified (1 source) Preconception Onset: 12-07-2023 Unclassified (1 source) Wound Check Onset: 10-04-2023 Unclassified (1 source) Herpes lesion treatment options Onset: 01-16-2024 Unclassified (1 source) Annual Exam Onset: 11-15-2023 Urinary tract infections (3 sources) Acute cystitis; Translations: [Acute cystitis with hematuria] Onset: 01-26-2023 Episodic Viral infection (3 sources) Anogenital human papillomavirus infection; Translations: [Anogenital (venereal) warts] Onset: 01-16-2024 01-16-2024 Episodic Past or Other Problems Problem Classification Problem Date Documented Date Episodic/Chronic Acute posthemorrhagic anemia (10 sources) Anemia following acute postoperative blood loss; Translations: [Acute posthemorrhagic anemia] Onset: 07-08-2017 07-08-2017 Episodic Calculus of urinary tract (11 sources) Calculus in bladder; Translations: [Urinary bladder stone] Onset: 11-16-2022 03-15-2023 Episodic Fluid and electrolyte disorders (10 sources) Metabolic acidosis; Translations: [Metabolic acidosis] Onset: 07-08-2017 07-08-2017 Episodic Genitourinary symptoms and ill-defined conditions (1 source) Retention of urine, unspecified; Translations: [Retention of urine, unspecified] Onset: 10-04-2023 Episodic Immunizations and screening for infectious disease (4 sources) Patient encounter status; Translations: [Encounter for screening for infections with a predominantly sexual mode of transmission] Onset: 11-15-2023 11-15-2023 Episodic Mood disorders (7 sources) Mood disorders Onset: 11-15-2023 11-15-2023 Other diseases of kidney and ureters (20 sources) Hydronephrosis; Translations: [Unspecified hydronephrosis] Onset: 02-03-2011 02-03-2011 Episodic Other diseases of kidney and ureters (10 sources) Vesicoureteric reflux; Translations: [Vesicoureteral-reflu x, unspecified] Onset: 07-07-2017 07-07-2017 Episodic Other diseases of kidney and ureters (2 sources) Unspecified hydronephrosis; Translations: [Unspecified hydronephrosis] Onset: 07-08-2017 Episodic Other screening for suspected conditions (not mental disorders or infectious disease) (3 sources) Abnormal findings on diagnostic imaging of other abdominal regions, including retroperitoneum; Translations: [Encounter for screening for malignant neoplasm of vagina] Onset: 01-05-2023 Episodic Residual codes; unclassified (10 sources) Disorder of stature; 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] Onset: 07-30-2013 07-30-2013 Episodic Unclassified (1 source) LOW BACK PAIN, UNSPECIFIED; Translations: [LOW BACK PAIN, UNSPECIFIED] Onset: 02-07-2023 Procedures Date Procedure Procedure Detail Performing Clinician Start: 11-15-2023 Adult depression scr eening assessment Kathryn Nettles MD Work Phone: Start: 11-15-2023 Microscopic observat ion [Identifier] in Cervix by Cyto stain Nina Russell APRN-[facility] Work Phone: Start: 11-07-2023 Urine test visual color cmprsn meths Kathryn Nettles MD Work Phone: Start: 06-06-2022 Antibody screen Markell Pearl mmoud DO Work Phone: Start: 06-06-2022 Urinalysis microscopic only Markell Abdullahi DO Work Phone: Start: 06-06-2022 Urine test visual color cmprsn meths Markell Abdullahi DO Work Phone: Start: 06-06-2022 Basic metabolic pane l calcium total Markell Gamboad DO Work Phone: Start: 06-06-2022 Hepatic function panel Markell Abdullahi DO Work Phone: Start: 09-14-2021 Urine test visual color cmprsn meths Lex Willson MD Work Phone: Start: 08-18-2021 Us retroperitoneal r eal time w/image complete Lex Willson MD Work Phone: Start: 02-18-2021 Us retroperitoneal r eal time w/image complete Debbie Desai APRN [facility] Work Phone: Start: 02-18-2021 Urine test visual color cmprsn meths Nikko Deo Bell MD Work Phone: Start: 11-25-2020 Blood count complete auto&auto difrntl wbc Nikko Bell Work Phone: Start: 11-25-2020 Comprehensive metabo lic panel Nikko Deo Bell Work Phone: Start: 07-23-2020 Assay of parathormone Nikko Bell Work Phone: Start: 07-23-2020 Assay of phosphorus inorganic Nikko Bell Work Phone: Start: 07-23-2020 Blood count complete auto&auto difrntl wbc Nikko Bell Work Phone: Start: 07-23-2020 Comprehensive metabo lic panel Nikko Bell Work Phone: Start: 07-23-2020 Prealbumin M Deo sal Work Phone: Start: 05-28-2020 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 Dioni Donnelly Work Phone: Start: 04-23-2020 Basic metabolic pane l calcium total Nikko Bell Work Phone: Start: 04-23-2020 Blood count complete auto&auto difrntl wbc Nikko Bell Work Phone: Start: 04-23-2020 Cyanocobalamin vitamin b-12 Amelia Rich Work Phone: Start: 03-25-2020 Urine test visual color cmprsn meths Amelia Kal Rich Work Phone: Start: 03-21-2020 COVID-19 SUNITA ARCHULETA Start: 03-21-2020 COVID-19 Blairdelma epstein Work Phone: Start: 11-05-2019 Comprehensive metabo lic panel Nikko Deo Bell MD Work Phone: Start: 10-03-2019 Complete tthrc echo congenital cardiac anomaly Dioni Donnelly MD Work Phone: Results Test Name Value Interpretation Reference Range Facility CBC AND AUTO DIFFon 02-05-20 24 ABSOLUTE BASOPHIL 0.1 X10E9/L Normal 0.0-0.2 [facility] Comment on above: Performed By: #### C BCA, CMP, 3040-3 #### [facility] ([id number]) [address] [place] [address] 34948 ABSOLUTE NEUTROPHIL 5.6 X10E9/L Normal 1.5-6.6 [facility] Comment on above: Performed By: #### C RICKI, CMP, 3039-3 #### [facility] ([id number]) [address] [place] [address] 28835 Basophils/100 WBC (Bld) 0.8 % Normal [facility] Comment on above: Performed By: #### C RICKI, CMP, 3 #### [facility] ([id number]) [address] [place] [address] 60280 Eosinophils (Bld) [#/Vol] 0.2 10*3/uL Normal 0.0-0.4 [facility] Comment on above: Performed By: #### C RICKI, CMP, 3039-12 #### [facility] ([id number]) [address] [place] [address] 64344 Eosinophils/100 WBC (Bld) 2.0 % Normal [facility] Comment on above: Performed By: #### Dani ROBISON, CMP, 3039-12 #### [facility] ([id number]) [address] [place] [address] 29432 Erythrocyte distribution width (RBC) [Ratio] 12.1 % Normal 11.5-15.0 [facility] Comment on above: Performed By: #### C RICKI, CMP, 3039-12 #### [facility] ([id number]) [address] [place] [address] 38179 Hematocrit (Bld) [Volume fraction] 40.9 % Normal 35-47 [facility] Comment on above: Performed By: #### Dani BCA, CMP, 3039-3 #### [facility] ([id number]) [address] [place] [address] Hemoglobin (Bld) [Mass/Vol] 14.2 g/dL Normal 11.7-15.5 [facility] Comment on above: Performed By: #### Dain ROBISON CMP, 3039-3 #### [facility] ([id number]) [address] [place] [address] 33936 Lymphocytes (Bld) [#/Vol] 1.8 10*3/uL Normal 1.0-3.5 [facility] Comment on above: Performed By: #### Dani ROBISON [facility], 3039-12 #### [facility] ([id number]) [address] [place] [address] 98309 Lymphocytes/100 WBC (Bld) 22.6 % Normal [facility] Comment on above: Performed By: #### Dani ROBISON [facility], 3039-12 #### [facility] ([id number]) [address] [place] [address] 33823 MCH (RBC) [Entitic mass] 30.9 pg Normal 27-34 [facility] Comment on above: Performed By: #### Dani ROBISON [facility], 3039-12 #### [facility] ([id number]) [address] [place] [address] 95957 MCHC (RBC) [Mass/Vol] 34.7 g/dL Normal 32-36 [facility] Comment on above: Performed By: #### Dani ROBISON [facility], 3039-12 #### [facility] ([id number]) [address] [place] [address] 49551 MCV (RBC) [Entitic vol] 89 fL Normal 80-100 [facility] Comment on above: Performed By: #### Dani ROBISON CMP, 3039-12 #### [facility] ([id number]) [address] [place] [address] 63320 Monocytes (Bld) [#/Vol] 0.5 10*3/uL Normal 0-0.9 [facility] Comment on above: Performed By: #### Dani ROBISON CMP, 3039-3 #### [facility] ([id number]) [address] [place] [address] 40486 Monocytes/100 WBC (Bld) 5.7 % Normal [facility] Comment on above: Performed By: #### Dani ROBISON CMP, 3039-3 #### [facility] ([id number]) [address] [place] [address] 08375 Neutrophils/100 WBC (Bld) 68.9 % Normal [facility] Comment on above: Performed By: #### Dani ROBISON CMP, 3 #### [facility] ([id number]) [address] [place] [address] 21329 Platelet mean volume (Bld) [Entitic vol] 8.3 fL Normal 7-12 [facility] Comment on above: Performed By: #### Dani ROBISON CMP, 3039-12 #### [facility] ([id number]) [address] [place] [address] 90091 Platelets (Bld) [#/Vol] 217 10*3/uL Normal 150-450 [facility] Comment on above: Performed By: #### Dani ROBISON CMP, 3 #### [facility] ([id number]) [address] [place] [address] 50140 RBC COUNT 4.59 X10E12/L Normal 3.80-5.20 [facility] Comment on above: Performed By: #### Dani ROBISON CMP, 3039-3 #### [facility] ([id number]) [address] [place] [address] 17436 WBC (Bld) [#/Vol] 8.1 10*3/uL Normal 4.0-11.0 [facility] Comment on above: Performed By: #### Dani ROBISON CMP, 3039-3 #### [facility] ([id number]) [address] [place] [address] 38520 COMPREHENSIVE METABOLIC PANE Chris 02-05-2024 Albumin [Mass/Vol] 4.5 g/dL Normal 3.2-5.3 [facility] Comment on above: Performed By: #### C BCA, CMP, 3040-3 #### [facility] ([id number]) [address] [place] [address] 53488 ALP [Catalytic activity/Vol] 90 U/L Normal 39-130 [facility] Comment on above: Performed By: #### C BCA, CMP, 3039-3 #### [facility] ([id number]) [address] [place] [address] 19239 ALT [Catalytic activity/Vol] 16 U/L Normal 0-31 [facility] Comment on above: Performed By: #### C BCA, CMP, 3039-3 #### [facility] ([id number]) [address] [place] [address] 34131 Anion gap [Moles/Vol] 10 mmol/L Normal 5-15 [facility] Comment on above: Performed By: #### C BCA, CMP, 0-3 #### [facility] ([id number]) [address] [place] [address] 11932 AST [Catalytic activity/Vol] 15 U/L Normal 0-41 [facility] Comment on above: Performed By: #### C BCA, CMP, 0-3 #### [facility] ([id number]) [address] [place] [address] 55981 Bilirubin [Mass/Vol] 0.7 mg/dL Normal 0.3-1.2 [facility] Comment on above: Performed By: #### C BCA, CMP, 0-3 #### [facility] ([id number]) [address] [place] [address] 12878 Calcium [Mass/Vol] 9.1 mg/dL Normal 8.5-10.5 [facility] Comment on above: Performed By: #### C GRACIELA ROBISON, 3039-3 #### [facility] ([id number]) [address] [place] [address] 75892 Chloride [Moles/Vol] 106 mmol/L Normal 98-109 [facility] Comment on above: Performed By: #### C GRACIELA ROBISON, 3039-3 #### [facility] ([id number]) [address] [place] [address] 62833 CO2 [Moles/Vol] 21 mmol/L Low 22-32 [facility] Comment on above: Performed By: #### C GRACIELA ROBISON, 3039-3 #### [facility] ([id number]) [address] [place] [address] 39912 Creatinine [Mass/Vol] 1.11 mg/dL High 0.40-1.00 [facility] Comment on above: Result Comment: METH OD TRACEABLE TO IDMS STANDARD Performed By: #### C GRACIELA ROBISON, 3 #### [facility] ([id number]) [address] [place] [address] 76615 GFR/1.73 sq M.predicted among non-blacks MDRD (S/P/Bld) [Vol rate/Area] 73 mL/min/{1.73_m2} Normal >59 [facility] Comment on above: Result Comment: Reported eGFR is based on the CKD-EPI 2020 equation that does not use a race coefficient. Performed By: #### C GRACIELA ROBISON, 0-3 #### [facility] ([id number]) [address] [place] [address] 42276 Glucose [Mass/Vol] 98 mg/dL Normal 65-99 [facility] Comment on above: Performed By: #### Dani ROBISON CMP, 3039-3 #### [facility] ([id number]) [address] [place] [address] 04429 Potassium [Moles/Vol] 4.8 mmol/L Normal 3.5-5.0 [facility] Comment on above: Performed By: #### C BCA, [facility], 3040-3 #### [facility] ([id number]) [address] [place] [address] 11959 Protein [Mass/Vol] 7.5 g/dL Normal 6.0-8.0 [facility] Comment on above: Performed By: #### C BCA, [facility], 3040-3 #### [facility] ([id number]) [address] [place] [address] 82090 Sodium [Moles/Vol] 137 mmol/L Normal 134-146 [facility] Comment on above: Performed By: #### C BCA, [facility], 3040-3 #### [facility] ([id number]) [address] [place] [address] 10227 Urea nitrogen [Mass/Vol] 18 mg/dL Normal 5-23 [facility] Comment on above: Performed By: #### C BCA, [facility], 3040-3 #### [facility] ([id number]) [address] [place] [address] ABDOMEN AND PELVIS W CONT on 02-05-2024 CT ABDOMEN AND PELVIS W CONT CT ABDOMEN AND PELVIS W CONT CT ABDOMEN AND PELVIS W CONT CLINICAL HISTORY: Abdominal pain COMPARISON: None. TECHNIQUE: * CT abdomen and pelvis was performed with the administration of intravenous contrast. Coronal and sagittal reformatted images were generated and reviewed. Automated exposure control was utilized. * All CT scans at this facility use dose modulation, iterative reconstruction, and/or weight based dosing when appropriate to reduce radiation dose to as low as reasonably achievable. FINDINGS: Chronic pectus excavatum deformity. Visualized pulmonary parenchyma appears unremarkable. No pleural or pericardial effusion. No intra-abdominal free air or free fluid. The liver, gallbladder, spleen, pancreas, and adrenal glands appear unremarkable. Persistent renal lobulation. Kidneys enhance symmetrically, with no nephrolithiasis, hydronephrosis, or suspicious renal lesion. Urinary bladder wall appears thickened/trabeculate d. Small physiologic amount of pelvic free fluid. Uterus appears unremarkable. Small and large bowel appear unremarkable. Appendix is not definitively identified. No abdominal or pelvic lymphadenopathy. Nonaneurysmal abdominal aorta. Postsurgical appearance of the partially visualized lower thoracic and upper lumbar spine. No acute osseous abnormality. IMPRESSION: * Urinary bladder wall thickening could reflect sequela of multiple endoluminal interventions versus acute cystitis and/or neurogenic bladder. Recommend clinical correlation with urinalysis. Approved by Resident: Frankie Roque MD on 02/05/2024 6:41 AM ILyle MD have personally reviewed the image(s) and agree with and/or edited the report Finalized by Lyle Perez MD on 02/05/2024 7:23 AM Normal [facility] HCG ( test) IA.rapi d Ql (S)on 02-05-2024 SERUM Negative Normal NEG [facility] Comment on above: Performed By: #### 8 0385-8 #### [facility] ([id number]) [address] [place] [address] 20848 LIPASEon 02-05-2024 Lipase [Catalytic activity/Vol] 35 U/L Normal 17-40 [facility] Comment on above: Performed By: #### C BCA, CMP, 3040-3 #### [facility] ([id number]) [address] [place] [address] 47937 URN MACROSCOPIC NURon 2023 BILIRUBIN HANANE Negative Normal NEG [facility] Comment on above: Performed By: #### 6 30-4 #### [facility] ([id number]) [address] [place] [address] BLOOD/HGB HANANE Trace Abnormal NEG [facility] Comment on above: Performed By: #### 6 30-4 #### [facility] ([id number]) [address] [place] [address] GLUCOSE HANANE Negative Normal NEG [facility] Comment on above: Performed By: #### 6 30-4 #### [facility] ([id number]) [address], [address] [place] [address] KETONES HANANE 15 mg/dL Abnormal NEG [facility] Comment on above: Performed By: #### 6 30-4 #### [facility] ([id number]) [address] [place] [address] LEUKOCYTE ESTERASE HANANE Negative Normal NEG Pr [facility] Comment on above: Performed By: #### 6 30-4 #### [facility] ([id number]) [address], [address] [place] [address] NITRITE HANANE Negative Normal NEG [facility] Comment on above: Performed By: #### 6 30-4 #### [facility] ([id number]) [address] [place] [address] PH HANANE 6.0 Normal 5.0-8.5 [facility] Comment on above: Performed By: #### 6 30-4 #### [facility] ([id number]) [address], [address] [place] [address] PROTEIN HANANE 30 mg/dL Abnormal NEG [facility] Comment on above: Performed By: #### 6 30-4 #### [facility] ([id number]) [address] [place] [address] SPECIFIC GRAVITY HANANE 1.020 Normal 1.003-1.035 [facility] Comment on above: Performed By: #### 6 30-4 #### [facility] ([id number]) [address] [place] [address] UROBILINOGEN HANANE 0.2 eu/dL Normal <1.1 [facility] Comment on above: Performed By: #### 6 30-4 #### [facility] ([id number]) [address] [place] [address], [address] [place] [address] 36on 01-03-2024 36 Patient called and would like to know if it would be ok for her to get gardisil injection? Normal [facility] CHLAMYDIA/GC PCR, FLon 11-15 CHLAMYDIA/GC PCR, FL SPECIMEN SOURCE ThinPrep CHLAMYDIA DNA(PCR) Positive (qualifier value) Chlamydia trachomatis detected by nucleic acid amplification. GONORRHOEAE DNA(PCR) Negative (qualifier value) Neisseria gonorrhoeae not detected by nucleic acid amplification. This does not exclude the possibility of infection because results are dependent on adequate specimen collection. Normal [facility] Comment on above: Performed By: #### C GT #### [facility] ([id number]) [address] [facility] [place], [place] [address] [place] [address] LAB ([id number]) [address] [place] [address], [address] [place] [address] Cytologyon 11-15-2023 Cytology Abnormal [facility] Comment on above: Result Comment: [facility] [address] [place] [address] Gynecologic Cytology Consultation Patient Name:AGUSTINA PIMENTEL:2000 (Age: 23)Gender:FTaken:4Reported:4Physician(s):Kathryn Nettles M.D. ([phone])Copy To: Rec. #:[id number]: #[id number] Final Cytologic Interpretation ThinPrep Pap Test (Cervical): Satisfactory for evaluation. A transformation zone component is present. SQUAMOUS EPITHELIAL CELL ABNORMALITY Atypical squamous cells of undetermined significance (ASC-US). [facility]/11/23/2023 [facility] [place] [address] [place] [address], License number: [id number]. Electronically Signed Out By Benton Jones MD Date of Last Menstrual Period: 10/08/23 Other Clinical Conditions: Z01.419 Machine Shop Inspector exam wo/abn findings Z12.72 Screeing for malignant neoplasm of vagina Z11.3 Encntr screen for infections w sexl mode of transmiss Source of Specimen ThinPrep Pap Test (Cervical) Thin Prep Pap (CERTIFIED PEER SPECIALIST) Fee Code(s): G0145, 91103 HIGH RISK HPV W/GENOon 11-15 HPV 31+33+35+39+45+51+52+5 6+58+59+66+68 DNA DADA+probe Ql (Cvx) HPV SPECIMEN TYPE ThinPrep HPV 16 Negative (qualifier value) HPV 18 Negative (qualifier value) OTHER HIGH RISK HPV Positive (qualifier value) For the DNA of any or combination of the following HPV types: 31,33,35,45, 52,56,58,59,66 and 68. Normal [facility] Comment on above: Performed By: #### 7 1431-1 #### [facility] ([id number]) [address] [facility] [place] [address] [facility] ([id number]) [address] [place] [address] [address] [place] [address] VAGINITIS PANEL PCRon 2023 VAGINITIS PANEL PCR BACT. VAGINOSIS DNA Detected (qualifier value) Qualitative results are reported based on detection and quantitation of targeted organism markers which include: Lactobacillus spp. (L. crispatus and L. jensenii), Gardnerella vaginalis, Atopobium vaginae, Bacterial Vaginosis Associated Bacteria-2 (BVAB-2) and Megasphaera-1 NATE SPECIES DNA Not detected (qualifier value) Nate species not detected include: C. albicans, C. tropicalis, C. parapsilosis or C. dubliniensis NATE KRUSEI DNA Not detected (qualifier value) No Nate krusei detected ANTE GLABRATA DNA Not detected (qualifier value) No Nate glabrata detected TRICHOMONAS VAG DNA Not detected (qualifier value) No Trichomonas vaginalis detected NOTE BD MAX Vaginal Panel has not been evaluated for patients under 18 years old. Results for these patients should be reviewed and assessed in accordance with clinical presentation to determine patient diagnosis. Normal [facility] Comment on above: Performed By: #### V PPCR #### [facility] ([id number]) [address] [place] [address], [address] [place] [address] POCT , urineon 10-18 Beta HCG ( test) Ql (U) Negative [facility] Interpretation and review of laboratory results Normal [facility] 36on 10-04-2023 36 Patient has mitpranoff, she called office to report that her urine tube is working but there is a clot in her belly button that she is concerned about. Urology placed tube and I advised her to contact them, however she wanted to inform nephrology. Please advise. Dr Sigala was notified. Patient was advised to contact urology and to go to the ED for an evaluation. Normal [facility] URINE CULTUREon 10-04-2023 Bacteria identified Cx Nom (U) CULTURE RESULTS >100,000 ORGANISMS/mL STREPTOCOCCUS AGALACTIAE (GROUP B) Abnormal [facility] Comment on above: Performed By: #### 6 30-4 #### [facility] ([id number]) [address] [place] [address], [address] [place] [address] URN MACROSCOPIC NURon 2022 BILIRUBIN HANANE Negative Normal NEG [facility] Comment on above: Performed By: #### N UM #### [facility] ([id number]) [address] [place] [address] 63[address] BLOOD/HGB HANANE Trace Abnormal NEG [facility] Comment on above: Performed By: #### N UM #### [facility] ([id number]) [address] [place] [address] 37063 GLUCOSE HANANE Negative Normal NEG [facility] Comment on above: Performed By: #### N UM #### [facility] ([id number]) [address] [place] [address] 56079 KETONES HANANE Negative Normal NEG [facility] Comment on above: Performed By: #### N UM #### [facility] ([id number]) [address] [place] [address] 01019 LEUKOCYTE ESTERASE HANANE Negative Normal NEG Pr [facility] Comment on above: Performed By: #### N UM #### [facility] ([id number]) [address] [place] [address] 93203 NITRITE HANANE Negative Normal NEG [facility] Comment on above: Performed By: #### N UM #### [facility] ([id number]) [address] [place] [address] 89726 PH HANANE 6.5 Normal 5.0-8.5 [facility] Comment on above: Performed By: #### N UM #### [facility] ([id number]) [address] [place] [address] 94324 PROTEIN HANANE 100 mg/dL Abnormal NEG [facility] Comment on above: Performed By: #### N UM #### [facility] ([id number]) [address] [place] [address] 88660 SPECIFIC GRAVITY HANANE 1.020 Normal 1.003-1.035 [facility] Comment on above: Performed By: #### N UM #### [facility] ([id number]) [address] [place] [address] 07542 UROBILINOGEN HANANE 0.2 eu/dL Normal <1.1 [facility] Comment on above: Performed By: #### N UM #### [facility] ([id number]) [address] [place] [address] 26848 BASIC METABOLIC PANELon 08-3 Anion gap [Moles/Vol] 12 mmol/L Normal 7-20 [facility] Comment on above: Performed By: #### L [id number] #### [facility] ([facility]) [address] [place] [address] Calcium [Mass/Vol] 10.0 mg/dL Normal 8.6-10.3 [facility] Comment on above: Performed By: #### L [id number] #### [facility] ([facility] [address] [place] [address] Chloride [Moles/Vol] 107 mmol/L Normal 98-107 [facility] Comment on above: Performed By: #### L [id number] #### [facility] ([facility] [address] [place] [address] CO2 [Moles/Vol] 27 mmol/L Normal 21-31 [facility] Comment on above: Performed By: #### L [id number] #### [facility] ([facility] [address] [place] [address] Creatinine [Mass/Vol] 1.08 mg/dL Normal 0.60-1.20 [facility] Comment on above: Performed By: #### L [id number] #### [facility] ([facility] [address] [place] [address] GLOMERULAR FILTRATION RATE ML/MIN/1.73 SQ M.PREDICTED 75.4 mL/min/1.73m*2 Normal >60.0 [facility] Comment on above: Result Comment: The [facility]???s estimated glomerular filtration rate (eGFR) will no longer include consideration of race in its calculation. The National Kidney Foundation???s eGFR Task Force developed new recommendations for the estimation of the glomerular filtration rate in the [place] They recommend immediate implementation of the new equation refit without the race variable in all laboratories because the calculation does not include race. In addition to not including race in the calculation and reporting, it included diversity in its development, and has acceptable performance characteristics and potential consequences that do not disproportionately affect any one group of individuals. Performed By: #### L [id number] #### [facility] ([facility] [address] [place] [address] Glucose [Mass/Vol] 83 mg/dL Normal 70-100 [facility] Comment on above: Performed By: #### L [id number] #### [facility] ([facility]) [address] [place] [address] Potassium [Moles/Vol] 5.2 mmol/L High 3.5-5.1 [facility] Comment on above: Performed By: #### L [id number] #### [facility] (BE[facility]) [address] [place] [address] Sodium [Moles/Vol] 141 mmol/L Normal 136-145 [facility] Comment on above: Performed By: #### L [id number] #### [facility] [address] [place] [address] Urea nitrogen [Mass/Vol] 15 mg/dL Normal 7-25 [facility] Comment on above: Performed By: #### L [id number] #### [facility] ([facility] [address] [place] [address] UREA NITROGEN/CREATININE (MASS RATIO) IN SER/PLAS 13.9 Normal [facility] Comment on above: Performed By: #### L [id number] #### [facility] [address] [place] [address] CBCon 06-16-2023 Erythrocyte distribution width (RBC) [Ratio] 12.3 % Normal 11.5-15.0 [facility] Comment on above: Performed By: #### L [id number] ####[facility] ([facility] [place] [address] ERYTHROCYTE MEAN CORPUSCULAR HEMOGLOBIN CONCENTRATION (G/DL) BY AUTOMATED 32.2 g/dL Normal 32.0-35.0 [facility] Comment on above: Performed By: #### L [id number] ####[facility] ([facility] [place] [address] Hematocrit (Bld) [Volume fraction] 42.8 % Normal 36.0-48.0 [facility] Comment on above: Performed By: #### L [id number] ####[facility] ([facility] [place] [address] Hemoglobin (Bld) [Mass/Vol] 13.8 g/dL Normal 12.0-15.0 [facility] Comment on above: Performed By: #### L [id number] ####[facility] ([facility] [place] [address] MCH (RBC) [Entitic mass] 29.3 pg Normal 27.0-33.0 [facility] Comment on above: Performed By: #### L [id number] ####[facility] ([facility] [place] [address] MCV (RBC) [Entitic vol] 90.9 fL Normal 82.0-98.0 [facility] Comment on above: Performed By: #### L [id number] ####[facility] ([facility] [place] [address] PLATELETS (10*3/UL) IN BLOOD AUTOMATED COUNT 273 10*3/uL Normal 150-400 [facility] Comment on above: Performed By: #### L [id number] ####[facility] ([facility] [place] [address] RBC (Bld) [#/Vol] 4.71 10*6/uL Normal 3.80-5.00 [facility] Comment on above: Performed By: #### L [id number] ####[facility] ([facility] [place] [address] WBC (Bld) [#/Vol] 7.35 10*3/uL Normal 4.00-10.60 [facility] Comment on above: Performed By: #### L [id number] ####[facility] ([facility] [place] [address] CREATININE, URINE, RANDOMon 06-16-2023 Creatinine (U) [Mass/Vol] 101.0 mg/dL Normal 26-299 [facility] Comment on above: Performed By: #### L [id number] #### [facility] ([facility] [address] [address] Labon 06-16-2023 Lab [id number] Pimentel,Agustina 2000 F Date Provider Department Center 06/16/2023 2242-[facility] Comprehensiv Family History Problem Relation Age of Onset Bipolar disorder Mother Constipation Mother Family Status - Relation Status Age at Mother Normal [facility] MAGNESIUMon 06-16-2023 Magnesium [Mass/Vol] 1.7 mg/dL Low 1.9-2.7 [facility] Comment on above: Performed By: #### L [id number] ####[facility] ([facility] [place] [address] Office Visiton 06-16-2023 Follow-up visit [id number] Pimentel,Agustina 2000 Date Provider Department Center 06/16/202390670[facility] Comprehensiv Family History Problem Relation Age of Onset Bipolar disorder Mother Constipation Mother Family Status - Relation Status Age at Mother Level of Service:21580 LA OFFICE/OUTPATIENT ESTABLISHED MOD MDM 30-39 MIN Reason for Visit and Comments: Follow-up [865489] Normal [facility] PROTEIN, URINE, RANDOMon Protein (U) [Mass/Vol] 38.4 mg/dL Normal Un [facility] Comment on above: Result Comment: Ther e are no established reference values for random urine specimens. Performed By: #### L [id number] #### [facility] ([facility] [address] [place] [address] URINALYSISon 06-16-2023 BILIRUBIN, TOTAL PRESENCE IN URINE Negative Normal Negative [facility] Comment on above: Performed By: #### L [id number] #### [facility] ([facility] [address] [place] [address] Clarity (U) Slightly Cloudy Abnormal Clear [facility] Comment on above: Performed By: #### L [id number] #### [facility] [address] [place] [address] Color (U) Yellow Normal Yellow [facility] Comment on above: Performed By: #### L [id number] #### [facility] ([facility] [address] [place] [address] Glucose (U) [Mass/Vol] Negative Normal [facility] Performed By: #### L [id number] #### [facility] ([facility] [address] [place] [address] HEMOGLOBIN PRESENCE IN URINE Moderate Abnormal Negative [facility] Comment on above: Performed By: #### L [id number] #### [facility] ([facility] [address] [place] [address] Ketones Ql (U) Negative Normal Negative [facility] Comment on above: Performed By: #### L [id number] #### [facility] ([facility] [address] [place] [address] LEUKOCYTE ESTERASE PRESENCE IN URINE BY TEST STRIP Small Abnormal Negative [facility] Comment on above: Performed By: #### L [id number] #### [facility] ([facility] [address] [place] [address] NITRITE PRESENCE IN URINE Negative Normal Negative [facility] Comment on above: Performed By: #### L [id number] #### [facility] ([facility] [address] [place] [address] pH (U) 7.0 [pH] Normal 5.0-8.0 [facility] Comment on above: Performed By: #### L [id number] #### [facility] ([facility] [address] [place] [address] Protein (U) [Mass/Vol] 30 mg/dL Abnormal Negative Un [facility] Comment on above: Performed By: #### L [id number] #### [facility] ([facility] [address] [place] [address] Specific gravity (U) [Rel density] 1.012 Low 1.015-1.020 [facility] Comment on above: Performed By: #### L [id number] #### [facility] ([facility]AK[facility]) [address] [place] [address] URINALYSIS MICROSCOPICon CASTS IN URINE Normal [facility] Comment on above: Performed By: #### L [id number] ####[facility] (BEAKER)[address] [place] [address] CRYSTALS IN URINE Normal [facility] Comment on above: Performed By: #### L [id number] ####[facility] ([facility]ER)[address] [place] [address] MUCUS (#/HPF) IN URINE SEDIMENT Occasional Normal None Seen, Occasional, Few [facility] Comment on above: Performed By: #### L [id number] ####[facility] (BEAKER)[address] [place] [address] RBC (#/HPF) IN URINE SEDIMENT 11-20 Abnormal None Seen [facility] Comment on above: Performed By: #### L [id number] ####[facility] (BE[facility]ER)[address] [place] [address] SQUAMOUS EPITHELIAL CELLS (#/HPF) IN URINE SEDIMENT Occasional Normal None Seen, Occasional [facility] Comment on above: Performed By: #### L [id number] ####[facility] (BE[facility]ER)[address] [place] [address] WBC (LEUKOCYTE) (#/HPF) IN URINE SEDIMENT 51-100 Abnormal None Seen [facility] Comment on above: Performed By: #### L [id number] ####[facility] (BE[facility]ER)[address] [place] [address] 36on 03-30-2023 36 Called and scheduled appointment Normal [facility] 36on 03-29-2023 36 Pt called to reschedule appt for 03/31. Normal [facility] CULTURE URINEon 03-01-2023 CULTURE URINE Isolate 1 Enterococcus faecalis >100,000 cfu/ml of ORGANISM 1 Enterococcus faecalis ANTIBIOTIC M.I.C RX STATUS Beta-Lactamase Neg NEG F Benzylpenicillin 1 S F Ampicillin <=2 S F Gentamicin High Level (synergy) SYN-R R F Streptomycin High Level (synergy) SYN-S S F Ciprofloxacin <=0.5 S F Levofloxacin 1 S F Quinupristin/Dalfopri stin 4 R F Linezolid 1 S F Vancomycin 1 S F Tetracycline >=16 R F Nitrofurantoin <=16 S F Normal [facility] Comment on above: Performed By: #### KEVAN BERMEO UMICRO #### [facility] [address] [place] [address] Dr. Monserrat Chu ER URINE PROFILEon 3 Bilirubin Ql (U) Negative Normal NEGATIVE [facility] Comment on above: Performed By: #### Radha ZUÑIGA UMICRO #### [facility] [address] [place] [address] Dr. Monserrat Chu Clarity (U) CLEAR Normal CLEAR [facility] Comment on above: Performed By: #### Radha ZUÑIGA UMICRO #### [facility] [address] [place] [address] Dr. Monserrat hCu Color (U) LT. YELLOW Normal YELLOW [facility] Comment on above: Performed By: #### SOLA BERMEOICRO #### [facility] [address] [place] [address] Dr. Monserrat PROCTOR A micrscopic examination will be performed if indicated. Normal [facility] Comment on above: Performed By: #### Radha ZUÑIGA UMICRO #### [facility] [address] [place] [address] Dr. Monserrat Chu Glucose Ql (U) Negative Normal NEGATIVE [facility] Comment on above: Performed By: #### Radha ZUÑIGA UMICRO #### [facility] [address] [place] [address] Dr. Monserrat Chu Hemoglobin Ql (U) MODERATE Abnormal NEGATIVE [facility] Comment on above: Performed By: #### Radha ZUÑIGA UMICRO #### [facility] [address] [place] [address] Dr. Monserrat Chu Ketones Ql (U) Negative Normal NEGATIVE [facility] Comment on above: Performed By: #### ABDIRAHMAN BERMEORO #### [facility] [address] [place] [address] Dr. Monserrat Chu LEUKOCYTES MODERATE Abnormal NEGATIVE [facility] Comment on above: Performed By: #### Radha ZUÑIGA UMICRO #### [facility] [address] [place] [address] Dr. Monserrat Chu Nitrite Ql (U) Negative Normal NEGATIVE [facility] Comment on above: Performed By: #### SOLA BERMEOICRO #### [facility] [address] [place] [address] Dr. Monserrat Chu pH (U) 6.5 [pH] Normal 5-9 [facility] Comment on above: Performed By: #### ABDIRAHMAN BERMEORO #### [facility] [address] [place] [address] Dr. Monserrat Chu SPEC GRAVITY 1.015 Normal 1.005-<=1.025 [facility] Comment on above: Performed By: #### Radha ZUÑIGA UMICRO #### [facility] [address] [place] [address] Dr. Monserrat Chu UA PROTEIN TRACE Normal NEGATIVE/ TRACE [facility] Comment on above: Performed By: #### ABDIRAHMAN BERMEORO #### [facility] [address] [place] [address] Dr. Monserrat Chu UR MICRO IND INDICATED Normal [facility] Comment on above: Performed By: #### ABDIRAHMAN BERMEORO #### [facility] [address] [place] [address] Dr. Monserrat Chu Urobilinogen Qn (U) 1.0 {Sanjuana'U}/dL Normal 0.2 - 1. 0 [facility] Comment on above: Performed By: #### ABDIRAHMAN BERMEORO #### [facility] [address] [place] [address] Dr. Monserrat Chu URINE MICROSCOPIC ONLYon BACTERIA SMALL Abnormal NONE SEEN [facility] Comment on above: Performed By: #### ABDIRAHMAN BERMEORO #### [facility] [address] [place] [address] Dr. Monserrat Chu Bacteria identified Cx Nom (U) INDICATED Normal [facility] Comment on above: Performed By: #### Radha ZUÑIGA UMICRO #### [facility] [address] [place] [address] Dr. Monserrat Chu CAST NONE SEEN Normal NONE SEEN [facility] Comment on above: Performed By: #### Radha ZUÑIGA UMICRO #### [facility] [address] [place] [address] Dr. Monserrat Chu Crystals LM Nom (Urine sed) NONE SEEN Normal NONE SEEN [facility] Comment on above: Performed By: #### Radha ZUÑIGA UMICRO #### [facility] [address] [place] [address] Dr. Monserrat Chu Epithelial cells LM Ql (Urine sed) MODERATE Abnormal NONE SEEN /RARE [facility] Comment on above: Performed By: #### Radha ZUÑIGA UMICRO #### [facility] [address] [place] [address] Dr. Monserrat Chu MUCOUS TRACE Abnormal NONE SEEN [facility] Comment on above: Performed By: #### Radha ZUÑIGA UMICRO #### [facility] [address] [place] [address] Dr. Monserrat Chu RBC 10-20 Abnormal 0-2 [facility] Comment on above: Performed By: #### Radha ZUÑIGA UMICRO #### [facility] [address] [place] [address] Dr. Monserrat Chu WBC 10-20 Abnormal NONE SEEN [facility] Comment on above: Performed By: #### Radha ZUÑIGA UMICRO #### [facility] [address] [place] [address] Dr. Monserrat Chu CULTURE URINEon 01-28-2023 CULTURE URINE Isolate 1 Streptococcus agalactiae >100,000 cfu/ml of ORGANISM 1 Streptococcus agalactiae ANTIBIOTIC M.I.C RX STATUS Benzylpenicillin <=0.06 S F Ampicillin <=0.25 S F Cefotaxime <=0.12 S F Ceftriaxone <=0.12 S F Levofloxacin 0.5 S F Inducible Clindamycin Resistance Neg NEG F Erythromycin <=0.12 S F Clindamycin <=0.25 S F Linezolid <=2 S F Vancomycin 0.5 S F Tetracycline <=0.25 S F Normal [facility] Comment on above: Performed By: #### E KEVAN ZUÑIGA UMICRO #### [facility] [address] [place] [address] Dr. Monserrat Chu ABO AND RH TYPEon 01-25-2023 ABO and Rh group Nom (Bld) ABO Rh Typing A Rh Positive Normal [facility] Comment on above: Performed By: #### E KEVAN ZUÑIGA UMICRO #### [facility] [address] [place] [address] Dr. Monserrat Chu CBC AUTO DIFFon 01-25-2023 BASO # 0.0 103/ul Normal 0.0-0.1 [facility] Comment on above: Performed By: #### C BC #### [facility] [address] [place] [address] Dr. Monserrat Chu Basophils/100 WBC (Bld) 0.6 % Normal 0.2-2.0 [facility] Comment on above: Performed By: #### C BC #### [facility] [address] [place] [address] Dr. Monserrat Chu EO # 0.1 103/ul Normal 0.0-0.7 [facility] Comment on above: Performed By: #### C BC #### [facility] [address] [place] [address] Dr. Monserrat Chu Eosinophils/100 WBC (Bld) 1.2 % Normal 0.9-7.0 [facility] Comment on above: Performed By: #### C BC #### [facility] [address] [place] [address] Dr. Monserrat Chu Erythrocyte distribution width (RBC) [Ratio] 12.4 % Normal 11.0-15.0 [facility] Comment on above: Performed By: #### C BC #### [facility] [address] [place] [address] Dr. Monserrat Chu Hematocrit (Bld) [Volume fraction] 41.5 % Normal 36.0-48.0 [facility] Comment on above: Performed By: #### C BC #### [facility] [address] [place] [address] Dr. Monserrat Chu Hemoglobin (Bld) [Mass/Vol] 13.5 g/dL Normal 12.0-16.0 [facility] Comment on above: Performed By: #### C BC #### [facility] [address] [place] [address] Dr. Monserrat Chu IG # 0.02 10e3/ul Normal 0.00-0.03 [facility] Comment on above: Performed By: #### C BC #### [facility] [address] [place] [address] Dr. Monserrat Chu IG % 0.3 % Normal 0.0-0.5 [facility] Comment on above: Performed By: #### C BC #### [facility] [address] [place] [address] Dr. Monserrat Chu LYMPH # 1.6 103/ul Normal 1.2-3.8 [facility] Comment on above: Performed By: #### C BC #### [facility] [address] [place] [address] Dr. Monserrat Chu Lymphocytes/100 WBC (Bld) 23.5 % Normal 20.5-60.0 [facility] Comment on above: Performed By: #### C BC #### [facility] [address] [place] [address] Dr. Monserrat Chu MANUAL DIFF REQ NO Normal [facility] Comment on above: Performed By: #### C BC #### [facility] [address] [place] [address] Dr. Monserrat Chu MCH (RBC) [Entitic mass] 29.5 pg Normal 26.7-34.0 [facility] Comment on above: Performed By: #### C BC #### [facility] [address] [place] [address] Dr. Monserrat Chu MCHC (RBC) [Mass/Vol] 32.5 g/dL Normal 29.9-35.2 [facility] Comment on above: Performed By: #### C BC #### [facility] [address] [place] [address] [address] Monserrat Chu MCV (RBC) [Entitic vol] 90.6 fL Normal 81.0-99.0 [facility] Comment on above: Performed By: #### C BC #### [facility] [address] [place] [address] Dr. Monserrat Chu MONO # 0.4 103/ul Normal 0.3-0.8 [facility] Comment on above: Performed By: #### C BC #### [facility] [address] [place] [address] Dr. Monserrat Chu Monocytes/100 WBC (Bld) 5.5 % Normal 1.7-12.0 [facility] Comment on above: Performed By: #### C BC #### [facility] [address] [place] [address] Dr. Monserrat Chu NEUT # 4.5 103/ul Normal 1.4-6.5 [facility] Comment on above: Performed By: #### C BC #### [facility] [address] [place] [address] Dr. Monserrat Chu Neutrophils/100 WBC (Bld) 68.9 % Normal 43.0-75.0 [facility] Comment on above: Performed By: #### C BC #### [facility] [address] [place] [address] Dr. Monserrat Chu Platelet mean volume (Bld) [Entitic vol] 9.2 fL Critically low 9.5-13.5 [facility] Comment on above: Performed By: #### C BC #### [facility] [address] [place] [address] Dr. Monserrat Chu PLT 264 103/ul Normal 150-450 [facility] Comment on above: Performed By: #### C BC #### [facility] [address] [place] [address] Dr. Monserrat Chu RBC 4.58 106/ul Normal 4.20-5.40 [facility] Comment on above: Performed By: #### C BC #### [facility] [address] [address] [address] Monserrat Chu WBC 6.6 103/ul Normal 4.0-11.0 [facility] Comment on above: Performed By: #### C BC #### [facility] [address] [address] [address] Monserrat Chu ER URINE PROFILEon 3 Bilirubin Ql (U) Negative Normal NEGATIVE [facility] Comment on above: Performed By: #### E RUR, PREGU, UMICRO #### [facility] [address] [address] [address] Monserrat Chu Clarity (U) CLEAR Normal CLEAR [facility] Comment on above: Performed By: #### E RUR, PREGU, UMICRO #### [facility] [address] [place] [address] Dr. Monserrat Chu Color (U) LT. YELLOW Normal YELLOW [facility] Comment on above: Performed By: #### E RUR, PREGU, UMICRO #### [facility] [address] [place] [address] Dr. Monserrat CORTÉSIveth A micrscopic examination will be performed if indicated. Normal [facility] Comment on above: Performed By: #### E RUR, PREGU, UMICRO #### [facility] [address] [place] [address] [address] Monserrat Chu Glucose Ql (U) Negative Normal NEGATIVE [facility] Comment on above: Performed By: #### E RUR, PREGU, UMICRO #### [facility] [address] [address] [address] Monserrat Chu Hemoglobin Ql (U) SMALL Abnormal NEGATIVE [facility] Comment on above: Performed By: #### E RUR, PREGU, UMICRO #### [facility] [address] [place] [address] [address] Monserrat Chu Ketones Ql (U) Negative Normal NEGATIVE [facility] Comment on above: Performed By: #### E RUR, PREGU, UMICRO #### [facility] [address] [place] [address] Dr. Monserrat Chu LEUKOCYTES MODERATE Abnormal NEGATIVE [facility] Comment on above: Performed By: #### KEVAN BERMEO UMICRO #### [facility] [address] [place] [address] Dr. Monserrat Chu Nitrite Ql (U) Positive Abnormal NEGATIVE [facility] Comment on above: Performed By: #### EKVAN BERMEO UMICRO #### [facility] [address] [place] [address] Dr. Monserrat Chu pH (U) 8.0 [pH] Normal 5-9 [facility] Comment on above: Performed By: #### KEVAN BERMEO UMICRO #### [facility] [address] [place] [address] Dr. Monserrat Chu Protein (U) [Mass/Vol] 30 mg/dL Abnormal NEGAT MEET/ TRACE [facility] Comment on above: Performed By: #### KEVAN BERMEO UMICRO #### [facility] [address] [place] [address] Dr. Monserrat Chu SPEC GRAVITY 1.015 Normal 1.005-<=1.025 [facility] Comment on above: Performed By: #### KEVAN BERMEO UMICRO #### [facility] [address] [place] [address] Dr. Monserrat Chu UR MICRO IND INDICATED Normal [facility] Comment on above: Performed By: #### KEVAN BERMEO, UMICRO #### [facility] [address] [place] [address] Dr. Monserrat Chu Urobilinogen Qn (U) 0.2 {Sanjuana'U}/dL Normal 0.2 - 1. 0 [facility] Comment on above: Performed By: #### KEVAN BERMEO, UMICRO #### [facility] [address] [place] [address] Dr. Monserrat Chu LIPASEon 01-25-2023 Lipase [Catalytic activity/Vol] 96.0 U/L Normal 73.0-393.0 [facility] Comment on above: Performed By: #### KEVAN BERMEO UMICRO #### [facility] [address] [place] [address] Dr. Monserrat Chu PREG QUANT HCGon 01-25-2023 HCG QUANT <1 Normal [facility] Comment on above: Performed By: #### P REGQNT #### [facility] [address] [place] [address] Dr. Monserrat Chu HCG RANGE SEE BELOW Normal [facility] Comment on above: Result Comment: 5-50 0.2-1 WEEK 50-500 1-2 WEEKS 100-5,000 2-3 WEEKS 500-10,000 3-4 WEEKS 1,000-50,000 4-5 WEEKS 10,000-100,000 5-6 WEEKS 15,000-200,000 6-8 WEEKS 10,000-100,000 2-3 MONTHS Performed By: #### P REGQNT #### [facility] [address] [place] [address] Dr. Monserrat Chu PROF 14(COMP METB)on 023 Albumin [Mass/Vol] 4.0 g/dL Normal 3.4-5.0 [facility] Comment on above: Performed By: #### KEVAN BERMEO UMICRO #### [facility] [address] [place] [address] Dr. Monserrat Chu Albumin/Globulin [Mass ratio] 1.2 {ratio} Normal [facility] Comment on above: Performed By: #### KEVAN BERMEO UMICRO #### [facility] [address] [place] [address] Dr. Monserrat Chu ALP [Catalytic activity/Vol] 111 U/L Normal 46-116 [facility] Comment on above: Performed By: #### KEVAN BERMEO UMICRO #### [facility] [address] [place] [address] Dr. Monserrat Chu ALT [Catalytic activity/Vol] 21 U/L Normal 14-59 [facility] Comment on above: Performed By: #### RAFAEL BERMEOU, UMICRO #### [facility] [address] [address] [address] Monserrat Chu Anion gap [Moles/Vol] 12.9 mmol/L Normal [facility] Comment on above: Performed By: #### E RUR, PREGU, UMICRO #### [facility] [address] [address] [address] Monserrat Chu AST [Catalytic activity/Vol] 15 U/L Normal 15-37 [facility] Comment on above: Performed By: #### E RUR, PREGU, UMICRO #### [facility] [address] [address] [address] Monserrat Chu Bilirubin [Mass/Vol] 0.3 mg/dL Normal 0.2-1.0 [facility] Comment on above: Performed By: #### E RUR, PREGU, UMICRO #### [facility] [address] [address] [address] Monserrat Chu Calcium [Mass/Vol] 9.6 mg/dL Normal 8.5-10.1 [facility] Comment on above: Performed By: #### E RUR PREGU, UMICRO #### [facility] [address] [address] [address] Monserrat Chu Chloride [Moles/Vol] 108 mmol/L Critically high 98-107 [facility] Comment on above: Performed By: #### E RUR, PREGU, UMICRO #### [facility] [address] [address] [address] Monserrat Chu CO2 [Moles/Vol] 27.6 mmol/L Normal 21.0-32.0 [facility] Comment on above: Performed By: #### E RUR, PREGU, UMICRO #### [facility] [address] [place] [address] Dr. Monserrat Chu Creatinine [Mass/Vol] 1.06 mg/dL Critically high 0.55-1.02 [facility] Comment on above: Performed By: #### E RUR, PREGU, UMICRO #### [facility] [address] [address] [address] Monserrat Chu EGFR-AF CANADIAN >60 Normal >=60 [facility] Comment on above: Performed By: #### KEVAN BERMEO UMICRO #### [facility] [address] [address] [address] Monserrat Chu EGFR-NON AF CANADIAN >60 Normal >=60 [facility] Comment on above: Performed By: #### KEVAN BERMEO UMICRO #### [facility] [address] [address] [address] Monserrat Chu Globulin (S) [Mass/Vol] 3.3 g/dL Normal [facility] Comment on above: Performed By: #### RAFAEL BERMEOU UMICRO #### [facility] [address] [address] [address] Monserrat Chu Glucose [Mass/Vol] 96 mg/dL Normal 74-106 [facility] Comment on above: Performed By: #### RAFAEL BERMEOU, UMICRO #### [facility] [address] [address] [address] Monserrat Chu Potassium [Moles/Vol] 4.5 mmol/L Normal 3.5-5.1 [facility] Comment on above: Performed By: #### RAFAEL BERMEOU, UMICRO #### [facility] [address] [address] [address] Monserrat Chu Protein [Mass/Vol] 7.3 g/dL Normal 6.4-8.2 [facility] Comment on above: Performed By: #### RAFAEL BERMEOU, UMICRO #### [facility] [address] [address] [address] Monserrat Chu Sodium [Moles/Vol] 144 mmol/L Normal 136-145 [facility] Comment on above: Performed By: #### Radha ZUÑIGA PREGU, UMICRO #### [facility] [address] [address] [address] Monserrat Chu Urea nitrogen [Mass/Vol] 18.0 mg/dL Normal 7.0-18.0 [facility] Comment on above: Performed By: #### Radha RUR PREGU UMICRO #### [facility] [address] [place] [address] Dr. Monserrat Chu Urea nitrogen/Creatinine [Mass ratio] 17.0 mg/mg Normal [facility] Comment on above: Performed By: #### Radha RUR PREGU, UMICRO #### [facility] [address] [address] [address] Monserrat Chu URINE MICROSCOPIC ONLYon BACTERIA SMALL Abnormal NONE SEEN [facility] Comment on above: Performed By: #### Radha ZUÑIGA PREGU UMICRO #### [facility] [address] [place] [address] Dr. Monserrat Chu Bacteria identified Cx Nom (U) INDICATED Normal [facility] Comment on above: Performed By: #### Radha ZUÑIGA PREGU UMICRO #### [facility] [address] [place] [address] Dr. Monserrat Chu CAST NONE SEEN Normal NONE SEEN [facility] Comment on above: Performed By: #### Radha ZUÑIGA PREGU UMICRO #### [facility] [address] [place] [address] Dr. Monserrat Chu Crystals LM Nom (Urine sed) SEEN Abnormal NONE SEEN [facility] Comment on above: Performed By: #### Radha VELEZR PREGU, UMICRO #### [facility] [address] [place] [address] Dr. Monserrat Chu Epithelial cells LM Ql (Urine sed) NONE SEEN Normal NONE SEEN /RARE [facility] Comment on above: Performed By: #### Radha RUR PREGU, UMICRO #### [facility] [address] [place] [address] Dr. Monserrat Chu MUCOUS NONE SEEN Normal NONE SEEN [facility] Comment on above: Performed By: #### Radha RUR PREGU, UMICRO #### [facility] [address] [place] [address] Dr. Monserrat Chu RBC 5-10 Abnormal 0-2 [facility] Comment on above: Performed By: #### E RUR, PREGU, UMICRO #### [facility] [address] [place], [place] [address] Dr. Monserrat Chu TRIPLE PHOS CRYSTALS RARE Normal [facility] Comment on above: Performed By: #### E RUR, PREGU, UMICRO #### [facility] [address] [place], [place] [address] Dr. Monserrat Chu WBC 20-50 Abnormal NONE SEEN [facility] Comment on above: Performed By: #### E RUR, PREGU, UMICRO #### [facility] [address] [place], [place] [address] Dr. Monserrat Chu XR FINGER MIN 2 VIEWSon 12-17 XR FINGER MIN 2 VIEWS EXAM: XR FINGER OK N 2 VIEWS HISTORY: Pain in finger COMPARISON: None. TECHNIQUE: 3 views of the left middle finger are performed. FINDINGS: There is no acute fracture. The bony structures are intact. Joint spaces are maintained. Unremarkable soft tissues. IMPRESSION: No acute bony abnormality. Electronically authenticated by: JOSE PADILLA Date: 2023-01-14 21:21 Normal [facility] CULTURE URINEon 01-05-2023 CULTURE URINE Isolate 1 Enterococcus faecalis 100,000 cfu/mL of Isolate 2 Streptococcus agalactiae 50,000 cfu/mL of ORGANISM 1 Enterococcus faecalis ANTIBIOTIC M.I.C RX STATUS Beta-Lactamase Neg NEG F Benzylpenicillin 2 S F Ampicillin <=2 S F Gentamicin High Level (synergy) SYN-R R F Streptomycin High Level (synergy) SYN-S S F Ciprofloxacin <=0.5 S F Levofloxacin 0.5 S F Quinupristin/Dalfopri stin 4 R F Linezolid 1 S F Vancomycin <=0.5 S F Tetracycline >=16 R F Nitrofurantoin <=16 S F ORGANISM 2 Streptococcus agalactiae ANTIBIOTIC M.I.C RX STATUS Benzylpenicillin <=0.06 S F Ampicillin <=0.25 S F Cefotaxime <=0.12 S F Ceftriaxone <=0.12 S F Levofloxacin 0.5 S F Inducible Clindamycin Resistance Neg NEG F Erythromycin <=0.12 S F Clindamycin <=0.25 S F Linezolid <=2 S F Vancomycin 0.5 S F Tetracycline <=0.25 S F Normal [facility] Comment on above: Performed By: #### KEVAN BERMEO UMICRO #### [facility] [address] [place] [address] Dr. Monserrat Chu AMYLASEon 01-03-2023 Amylase [Catalytic activity/Vol] 56 U/L Normal 25-115 [facility] Comment on above: Performed By: #### A MY, LIPA, CMP #### [facility] [address] [place] [address] Dr. Monserrat Chu CBC AUTO DIFFon 01-03-2023 BASO # 0.1 103/ul Normal 0.0-0.1 [facility] Comment on above: Performed By: #### KEVAN BERMEO UMICRO #### [facility] [address] [place] [address] Dr. Monserrat Chu Basophils/100 WBC (Bld) 0.9 % Normal 0.2-2.0 [facility] Comment on above: Performed By: #### KEVAN BERMEO UMICRO #### [facility] [address] [place] [address] Dr. Monserrat Chu EO # 0.6 103/ul Normal 0.0-0.7 [facility] Comment on above: Performed By: #### KEVAN BERMEO UMICRO #### [facility] [address] [place] [address] Dr. Monserrat Chu Eosinophils/100 WBC (Bld) 7.1 % Critically high 0.9-7.0 [facility] Comment on above: Performed By: #### KEVAN BERMEO UMICRO #### [facility] [address] [place] [address] Dr. Monserrat Chu Erythrocyte distribution width (RBC) [Ratio] 12.6 % Normal 11.0-15.0 [facility] Comment on above: Performed By: #### KEVAN BERMEO UMICRO #### [facility] [address] [place] [address] Dr. Monserrat Chu Hematocrit (Bld) [Volume fraction] 40.7 % Normal 36.0-48.0 [facility] Comment on above: Performed By: #### KEVAN BERMEO, UMICRO #### [facility] [address] [place] [address] Dr. Monserrat Chu Hemoglobin (Bld) [Mass/Vol] 13.5 g/dL Normal 12.0-16.0 [facility] Comment on above: Performed By: #### Radha ZUÑIGA PREGU, UMICRO #### [facility] [address] [place] [address] Dr. Monserrat Chu IG # 0.02 10e3/ul Normal 0.00-0.03 [facility] Comment on above: Performed By: #### Radha RUR PREGU, UMICRO #### [facility] [address] [place] [address] Dr. Monserrat Chu IG % 0.2 % Normal 0.0-0.5 [facility] Comment on above: Performed By: #### Radha ZUÑIGA PREGU, UMICRO #### [facility] [address] [address] [address] Monserrat Chu LYMPH # 2.5 103/ul Normal 1.2-3.8 [facility] Comment on above: Performed By: #### Radha RUR PREGU, UMICRO #### [facility] [address] [place] [address] Dr. Monserrat Chu Lymphocytes/100 WBC (Bld) 28.1 % Normal 20.5-60.0 [facility] Comment on above: Performed By: #### Radha RUR PREGU, UMICRO #### [facility] [address] [place] [address] Dr. Monserrat Chu MANUAL DIFF REQ NO Normal [facility] Comment on above: Performed By: #### E RUR, PREGU, UMICRO #### [facility] [address] [place] [address] Dr. Monserrat Chu MCH (RBC) [Entitic mass] 29.5 pg Normal 26.7-34.0 [facility] Comment on above: Performed By: #### KEVAN BERMEO UMICRO #### [facility] [address] [place] [address] Dr. Monserrat Chu MCHC (RBC) [Mass/Vol] 33.2 g/dL Normal 29.9-35.2 [facility] Comment on above: Performed By: #### KEVAN BERMEO UMICRO #### [facility] [address] [place] [address] Dr. Monserrat Chu MCV (RBC) [Entitic vol] 89.1 fL Normal 81.0-99.0 [facility] Comment on above: Performed By: #### KEVAN BERMEO UMICRO #### [facility] [address] [place] [address] Dr. Monserrat Chu MONO # 0.6 103/ul Normal 0.3-0.8 [facility] Comment on above: Performed By: #### KEVAN BERMEO UMICRO #### [facility] [address] [place] [address] Dr. Monserrat Chu Monocytes/100 WBC (Bld) 6.4 % Normal 1.7-12.0 [facility] Comment on above: Performed By: #### KEVAN BERMEO UMICRO #### [facility] [address] [place] [address] Dr. Monserrat Chu NEUT # 5.0 103/ul Normal 1.4-6.5 [facility] Comment on above: Performed By: #### KEVAN BERMEO UMICRO #### [facility] [address] [place] [address] Dr. Monserrat Chu Neutrophils/100 WBC (Bld) 57.3 % Normal 43.0-75.0 [facility] Comment on above: Performed By: #### Radha ZUÑIGA PREGU UMICRO #### [facility] [address] [place] [address] Dr. Monserrat Chu Platelet mean volume (Bld) [Entitic vol] 9.1 fL Critically low 9.5-13.5 [facility] Comment on above: Performed By: #### KEVAN BERMEO UMICRO #### [facility] [address] [address] [address] Monserrat Chu PLT 269 103/ul Normal 150-450 [facility] Comment on above: Performed By: #### E KEVAN ZUÑIGA UMICRO #### [facility] [address] [address] [address] Monserrat Chu RBC 4.57 106/ul Normal 4.20-5.40 [facility] Comment on above: Performed By: #### E KEVAN ZUÑIGA UMICRO #### [facility] [address] [address] [address] Monserrat Chu WBC 8.8 103/ul Normal 4.0-11.0 [facility] Comment on above: Performed By: #### KEVAN BERMEO UMICRO #### [facility] [address] [address] ABD/PELV W CONon 01-04-20 CT ABD/PELV W CON EXAMINATION: CT ABD/PELV W CON HISTORY: GENERALIZED ABDOMINAL PAIN COMPARISON: None available TECHNIQUE: Multiple axial views CT abdomen pelvis with 100 mL Omnipaque 300 IV contrast. Coronal and sagittal reformats. Dose reduction techniques were achieved by using automated exposure control and/or adjustment of mA and/or kV according to patient size and/or use of iterative reconstruction technique. FINDINGS: Visualized lung bases and cardiac apex are unremarkable. Partially visualized pectus excavatum. Mild lower esophageal and gastroesophageal wall thickening. Focal moderate gastric antral wall thickening with mucosal enhancement (image 31 series 3). However, stomach is underdistended. Liver, gallbladder, pancreas, and adrenal glands are unremarkable. 1 cm hypodense oval focus of the superior spleen (image 15 series 3). Finding is probably a hemangioma. Bilateral renal cortical lobulation with areas of superior mid renal cortical scar. Minimal striated nephrogram bilaterally. Circumferential urinary bladder wall thickening containing multiple urinary bladder calculi measuring up to 11 mm. Umbilical urachal sinus tract with inflammation of the umbilical/urachal wall. Multiple 2-3 mm calcifications or stones within the tract (image 49 series 6). A 2.4 cm oval cystic structure at the uterine fundal wall (image 38 series 5). Heterogeneous density and mild soft tissue fullness of the cervix region. Fluid throughout the nondilated small bowel lumen reflect underlying enteritis in the proper clinical setting. Large amount stool throughout the large bowel. No evidence for bowel obstruction, large ascites, or free air. No acute bony abnormality. Thoracolumbar dorsal fixation hardware. IMPRESSION: 1. Umbilical urachal sinus tract with inflammation of the umbilical/urachal wall. Multiple 2-3 mm calcifications or stones within the tract (image 49 series 6). Finding is concerning for infected urachal sinus tract. Recommend Urological evaluation. 2. Circumferential urinary bladder wall thickening containing multiple urinary bladder calculi measuring up to 11 mm. Finding is suspicious for cystitis. 3. Bilateral renal cortical lobulation with areas of superior mid renal cortical scar. Minimal striated nephrogram bilaterally. Correlate clinically and with urinalysis for bilateral pyelonephritis. 4. Focal moderate gastric antral wall thickening with mucosal enhancement. However, stomach is underdistended. Finding is concerning for gastritis. Correlate clinically. 5. Mild lower esophageal and gastroesophageal wall thickening. Finding is characteristic of or gastroesophageal wall inflammation. Correlate clinically. 6. Fluid throughout the nondilated small bowel lumen reflect underlying enteritis in the proper clinical setting. 7. A 2.4 cm oval cystic structure at the uterine fundal wall (image 38 series 5). Heterogeneous density and mild soft tissue fullness of the cervix region. Eventual correlation with pelvic exam and consider pelvic sonogram to further characterize. These important urgent findings (impression #[id number]) communicated to and acknowledged by Dr. Jack Bender at 3:09 AM 01/03/2023 by phone. The phone call was made by Dr. Gayathri Wang. Electronically authenticated by: GAYATHRI WANG Date: 2023-01-03 03:16 Normal [facility] ER URINE PROFILEon 3 Bilirubin Ql (U) Negative Normal NEGATIVE [facility] Comment on above: Performed By: #### E KEVAN ZUÑIGA UMICRO #### [facility] [address] [address] [address] Monserrat Chu Clarity (U) CLEAR Normal CLEAR [facility] Comment on above: Performed By: #### E YOGESH PREGU, UMICRO #### [facility] [address] [address] [address] Monserrat Chu Color (U) LT. YELLOW Normal YELLOW [facility] Comment on above: Performed By: #### E RUR, PREGU, UMICRO #### [facility] [address] [address] [address] Monserrat Chu ERUAHD A micrscopic examination will be performed if indicated. Normal [facility] Comment on above: Performed By: #### E RUR, PREGU, UMICRO #### [facility] [address] [address] [address] Monserrat Chu Glucose Ql (U) Negative Normal NEGATIVE [facility] Comment on above: Performed By: #### E RUR, PREGU, UMICRO #### [facility] [address] [address] [address] Monserrat Chu Hemoglobin Ql (U) MODERATE Abnormal NEGATIVE [facility] Comment on above: Performed By: #### E RUR, PREGU, UMICRO #### [facility] [address] [address] [address] Monserrat Chu Ketones Ql (U) Negative Normal NEGATIVE [facility] Comment on above: Performed By: #### E RUR, PREGU, UMICRO #### [facility] [address] [address] [address] Monserrat Chu LEUKOCYTES SMALL Abnormal NEGATIVE [facility] Comment on above: Performed By: #### E RUR, PREGU, UMICRO #### [facility] [address] [address] [address] Monserrat Chu Nitrite Ql (U) Positive Abnormal NEGATIVE [facility] Comment on above: Performed By: #### E RUR, PREGU, UMICRO #### [facility] [address] [address] [address] Monserrat Chu pH (U) 8.5 [pH] Normal 5-9 [facility] Comment on above: Performed By: #### E RUR, PREGU, UMICRO #### [facility] [address] [place] [address] Dr. Monserrat Chu Protein (U) [Mass/Vol] 100 mg/dL Abnormal NEGAT MEET/ TRACE [facility] Comment on above: Performed By: #### E RUR, PREGU, UMICRO #### [facility] [address] [place] [address] Dr. Monserrat Chu SPEC GRAVITY 1.010 Normal 1.005-<=1.025 [facility] Comment on above: Performed By: #### E RUR, PREGU, UMICRO #### [facility] [address] [place] [address] Dr. Monserrat Chu UR MICRO IND INDICATED Normal [facility] Comment on above: Performed By: #### E RUR, PREGU, UMICRO #### [facility] [address] [place] [address] Dr. Monserrat Chu Urobilinogen Qn (U) 0.2 {Sanjuana'U}/dL Normal 0.2 - 1. 0 [facility] Comment on above: Performed By: #### E RUR, PREGU, UMICRO #### [facility] [address] [place] [address] Dr. Monserrat Chu LACTATE/LACTIC ACIDon 2022 Lactate [Moles/Vol] 0.8 mmol/L Normal 0.4-2.0 [facility] Comment on above: Performed By: #### E RUR, PREGU, UMICRO #### [facility] [address] [place] [address] Dr. Monserrat Chu LIPASEon 01-03-2023 Lipase [Catalytic activity/Vol] 101.0 U/L Normal 73.0-393.0 [facility] Comment on above: Performed By: #### A MY, LIPA, CMP #### [facility] [address] [place] [address] Dr. Monserrat Chu URon 01-03-2023 , QUAL Negative Normal NEGATIVE [facility] Comment on above: Performed By: #### E RUR, PREGU, UMICRO #### [facility] [address] [address] [address] Monserrat Chu PROF 14(COMP METB)on 023 Albumin [Mass/Vol] 4.0 g/dL Normal 3.4-5.0 [facility] Comment on above: Performed By: #### A MY, LIPA, CMP #### [facility] [address] [address] [address] Monserrat Chu Albumin/Globulin [Mass ratio] 1.3 {ratio} Normal [facility] Comment on above: Performed By: #### A MY, LIPA, CMP #### [facility] [address] [address] [address] Monserrat Chu ALP [Catalytic activity/Vol] 114 U/L Normal 46-116 [facility] Comment on above: Performed By: #### A MY, LIPA, CMP #### [facility] [facility] [address] [address] [address] Monserrat Chu ALT [Catalytic activity/Vol] 17 U/L Normal 14-59 [facility] Comment on above: Performed By: #### A MY, LIPA, CMP #### [facility] [address] [address] [address] Monserrat Chu Anion gap [Moles/Vol] 11.3 mmol/L Normal [facility] Comment on above: Performed By: #### A MY, LIPA, CMP #### [facility] [address] [address] [address] Monserrat Chu AST [Catalytic activity/Vol] 18 U/L Normal 15-37 [facility] Comment on above: Performed By: #### A MY, LIPA, CMP #### [facility] [address] [address] [address] Monserrat Chu Bilirubin [Mass/Vol] 0.2 mg/dL Normal 0.2-1.0 [facility] Comment on above: Performed By: #### A MY, LIPA, CMP #### [facility] [address] [address] [address] Monserrat Chu Calcium [Mass/Vol] 8.9 mg/dL Normal 8.5-10.1 [facility] Comment on above: Performed By: #### A MARY KAPOOR, CMP #### [facility] [address] [address] [address] Monserrat Chu Chloride [Moles/Vol] 105 mmol/L Normal 98-107 [facility] Comment on above: Performed By: #### A MARY KAPOOR, CMP #### [facility] [address] [address] [address] Monserrat Chu CO2 [Moles/Vol] 27.0 mmol/L Normal 21.0-32.0 [facility] Comment on above: Performed By: #### A MARY KAPOOR, CMP #### [facility] [address] [place] [address] Dr. Monserrat Chu Creatinine [Mass/Vol] 1.07 mg/dL Critically high 0.55-1.02 [facility] Comment on above: Performed By: #### A HELENA KAPOORA, CMP #### [facility] [address] [place] [address] Dr. Monserrat Chu EGFR-AF CANADIAN >60 Normal >=60 [facility] Comment on above: Performed By: #### A MARY KAPOOR, CMP #### [facility] [address] [place] [address] Dr. Monserrat Chu EGFR-NON AF CANADIAN >60 Normal >=60 [facility] Comment on above: Performed By: #### A MARY KAPOOR, CMP #### [facility] [address] [place] [address] Dr. Monserrat Chu Globulin (S) [Mass/Vol] 3.2 g/dL Normal [facility] Comment on above: Performed By: #### A MARY KAPOOR, CMP #### [facility] [address] [place] [address] Dr. Monserrat Chu Glucose [Mass/Vol] 103 mg/dL Normal 74-106 [facility] Comment on above: Performed By: #### A MARY KAPOOR, CMP #### [facility] [address] [place] [address] Dr. Monserrat Chu Potassium [Moles/Vol] 4.3 mmol/L Normal 3.5-5.1 [facility] Comment on above: Performed By: #### A MARY KAPOOR, CMP #### [facility] [address] [address] [address] Monserrat Chu Protein [Mass/Vol] 7.2 g/dL Normal 6.4-8.2 [facility] Comment on above: Performed By: #### A MARY KAPOOR, CMP #### [facility] [address] [place] [address] Dr. Monserrat Chu Sodium [Moles/Vol] 139 mmol/L Normal 136-145 [facility] Comment on above: Performed By: #### A MARY KAPOOR, CMP #### [facility] [address] [place] [address] Dr. Monserrat Chu Urea nitrogen [Mass/Vol] 19.0 mg/dL Critically high 7.0-18.0 [facility] Comment on above: Performed By: #### A MARY KAPOOR, CMP #### [facility] [address] [place] [address] Dr. Monserrat Chu Urea nitrogen/Creatinine [Mass ratio] 17.8 mg/mg Normal [facility] Comment on above: Performed By: #### A MARY KAPOOR, CMP #### [facility] [address] [place] [address] Dr. Monserrat Chu URINE MICROSCOPIC ONLYon BACTERIA TRACE Abnormal NONE SEEN [facility] Comment on above: Performed By: #### KEVAN BERMEO UMICRO #### [facility] [address] [place] [address] Dr. Monserrat Chu Bacteria identified Cx Nom (U) INDICATED Normal [facility] Comment on above: Performed By: #### KEVAN BERMEO UMICRO #### [facility] [address] [place] [address] Dr. Monserrat Chu CAST NONE SEEN Normal NONE SEEN [facility] Comment on above: Performed By: #### KEVAN BERMEO UMICRO #### [facility] [address] [address] [address] Monserrat Chu Crystals LM Nom (Urine sed) NONE SEEN Normal NONE SEEN [facility] Comment on above: Performed By: #### E YOGESH PREGU, UMICRO #### [facility] [address] [address] [address] Monserrat Chu Epithelial cells LM Ql (Urine sed) FEW Abnormal NONE SEEN /RARE [facility] Comment on above: Performed By: #### E YOGESH PREGU, UMICRO #### [facility] [address] [address] [address] Monserrat Chu MUCOUS NONE SEEN Normal NONE SEEN [facility] Comment on above: Performed By: #### Radha ZUÑIGA PREGU, UMICRO #### [facility] [address] [place] [address] Dr. Monserrat Chu RBC 2-5 Abnormal 0-2 [facility] Comment on above: Performed By: #### RAFAEL BERMEOU, UMICRO #### [facility] [address] [address] [address] Monserrat Chu TRIPLE PHOS CRYSTALS FEW Normal [facility] Comment on above: Performed By: #### Radha ZUÑIGA PREGU, UMICRO #### [facility] [address] [address] [address] Monserrat Chu WBC 20-50 Abnormal NONE SEEN [facility] Comment on above: Performed By: #### KEVAN BERMEO, UMICRO #### [facility] [address] [address] [address] Monserrat Chu Cult,Urineon 06-07-2022 Cult,Urine Specimen Description .CLEAN CATCH URINE Culture NO SIGNIFICANT GROWTH Report Status FINAL 06/07/2022 Normal [facility] Comment on above: Performed By: #### L IP, BHCG, CDP, PT, LIVP, BMP #### [facility] [address] [place] [address] Maintenance Technician 3Rd Shift: Rashad Mckinney DO Basic Metabolic Panelon 05-18 Anion gap [Moles/Vol] 12 mmol/L 9 - 17 mmol/L [facility] Calcium [Mass/Vol] 10.1 mg/dL 8.6 - 10. 4 mg/dL [facility] Chloride [Moles/Vol] 103 mmol/L 98 - 10 7 mmol/L [facility] CO2 [Moles/Vol] 26 mmol/L 20 - 31 mmol/L [facility] Creatinine [Mass/Vol] 1.09 mg/dL High 0.5 - 0.9 mg/dL [facility] GFR Non- Pediatric GFR requires additional information. Refer to NKDEP website for calculator. 60 - PINF mL/min [facility] GFR/1.73 sq M.predicted MDRD (S/P/Bld) [Vol rate/Area] [facility] Comment on above: Average GFR for <20 years old not available. Chronic Kidney Disease: <60 mL/min/1.73sq m Kidney failure: <15 mL/min/1.73sq m eGFR calculated using average adult body mass. Additional eGFR calculator available at: http://www.Matchup/multiple_crcl_2012.htm Glucose [Mass/Vol] 86 mg/dL 70 - 99 mg/dL [facility] Potassium [Moles/Vol] 4.2 mmol/L 3.7 - 5.3 mmol/L [facility] Sodium [Moles/Vol] 141 mmol/L 135 - 144 mmol/L [facility] Urea nitrogen (BldV) [Mass/Vol] 22 mg/dL High 6 - 20 mg/dL [facility] Basic Metabolic Profon 06-06 (cont.) Normal [facility] Comment on above: Result Comment: Aver age GFR for <20 years old not available. Chronic Kidney Disease: <60 mL/min/1.73sq m Kidney failure: <15 mL/min/1.73sq m eGFR calculated using average adult body mass. Additional eGFR calculator available at: http://www.Matchup/multiple_crcl_2012.htm Performed By: #### L IP, BHCG, CDP, PT, LIVP, BMP #### [facility] [address] [place] [address] Maintenance Technician 3Rd Shift: Rashad Mckinney DO Anion gap [Moles/Vol] 12 mmol/L Normal 9-17 [facility] Comment on above: Performed By: #### L IP, BHCG, CDP, PT, LIVP, BMP #### [facility] [address] [place] [address] Maintenance Technician 3Rd Shift: Rashad Mckinney DO Calcium [Mass/Vol] 10.1 mg/dL Normal 8.6-10.4 [facility] Comment on above: Performed By: #### L IP, BHCG, CDP, PT, LIVP, BMP #### [facility] [place] [address] Maintenance Technician 3Rd Shift: Rashad Mckinney DO Chloride [Moles/Vol] 103 mmol/L Normal 98-107 [facility] Comment on above: Performed By: #### L IP, BHCG, CDP, PT, LIVP, BMP #### [facility] [place] [address] Maintenance Technician 3Rd Shift: Rashad Mckinney DO CO2 [Moles/Vol] 26 mmol/L Normal 20-31 [facility] Comment on above: Performed By: #### L IP, BHCG, CDP, PT, LIVP, BMP #### [facility] [place] [address] Maintenance Technician 3Rd Shift: Rashad Mckinney DO Creatinine [Mass/Vol] 1.09 mg/dL High 0.50-0.90 [facility] Comment on above: Performed By: #### L IP, BHCG, CDP, PT, LIVP, BMP #### [facility] [address] [place] [address] Maintenance Technician 3Rd Shift: Rashad Mckinney DO GFR,non Amer Pediatric GFR requires additional information. Refer to NKDEP website for Normal >60 [facility] Comment on above: Result Comment: calc ulator. Performed By: #### L IP, BHCG, CDP, PT, LIVP, BMP #### [facility] [address] [place] [address] Maintenance Technician 3Rd Shift: Rashad Mckinney DO Glucose [Mass/Vol] 86 mg/dL Normal 70-99 [facility] Comment on above: Performed By: #### L IP, BHCG, CDP, PT, LIVP, BMP #### [facility] [address] [place] [address] Maintenance Technician 3Rd Shift: Rashad Mckinney DO Potassium [Moles/Vol] 4.2 mmol/L Normal 3.7-5.3 [facility] Comment on above: Performed By: #### L IP, BHCG, CDP, PT, LIVP, BMP #### [facility] [address] [facility] [place] [address] Maintenance Technician 3Rd Shift: Rashad Mckinney DO Sodium [Moles/Vol] 141 mmol/L Normal 135-144 [facility] Comment on above: Performed By: #### L IP, BHCG, CDP, PT, LIVP, BMP #### [facility] [address] [facility] [place] [address] Maintenance Technician 3Rd Shift: Rashad Mckinney DO Urea nitrogen [Mass/Vol] 22 mg/dL High 6-20 [facility] Comment on above: Performed By: #### L IP, BHCG, CDP, PT, LIVP, BMP #### [facility] [place] [address] Maintenance Technician 3Rd Shift: Rashad Mckinney DO CBC with Auto Differentialon 06-06-2022 Absolute Eos # 0.10 [facility] Absolute Lymph # 2.10 [facility] Absolute [place] # 0.40 [facility] Basophils (Bld) [#/Vol] 0.00 10*3/uL [facility] Basophils/100 WBC (Bld) 1 % 0 - 2 % [facility] Eosinophils/100 WBC (Bld) 2 % 0 - 4 % [facility] Hematocrit (Bld) [Volume fraction] 41.3 % 36 - 46 % [facility] Hemoglobin (Bld) [Mass/Vol] 13.8 g/dL 12 - 16 g/dL [facility] Lymphocytes/100 WBC (Bld) 30 % 25 - 45 % [facility] MCH (RBC) [Entitic mass] 29.9 pg 26 - 34 pg [facility] MCHC (RBC) [Mass/Vol] 33.3 g/dL 31 - 37 g/dL [facility] MCV (RBC) [Entitic vol] 89.6 fL 80 - 100 fL [facility] Monocytes/100 WBC (Bld) 6 % 2 - 8 % [facility] Platelet distribution width (Bld) [Ratio] 13.0 % 11.5 - 14.9 % [facility] Platelet mean volume (Bld) [Entitic vol] 7.2 fL 6 - 12 fL [facility] Platelets (Bld) [#/Vol] 272 10*3/uL [facility] RBC (Bld) [#/Vol] 4.61 10*6/uL 4 - 5.2 m/uL [facility] Segmented neutrophils/100 WBC (Bld) 61 % 34 - 64 % [facility] Segs Absolute 4.40 [facility] WBC (Bld) [#/Vol] 7.0 10*3/uL [facility] CBC with Diffon 06-06-2022 Abs. Basophil 0.00 k/uL Normal 0.0-0.2 [facility] Comment on above: Performed By: #### L IP, BHCG, CDP, PT, LIVP, BMP #### [facility] [address] [place] [address] Maintenance Technician 3Rd Shift: Rashad Mckinney DO Abs.Neutrophil (Seg) 4.40 k/uL Normal 1.3-9.1 [facility] Comment on above: Performed By: #### L IP, BHCG, CDP, PT, LIVP, BMP #### [facility] [address] [place] [address] Maintenance Technician 3Rd Shift: Rashad Mckinney DO Basophils/100 WBC (Bld) 1 % Normal 0-2 [facility] Comment on above: Performed By: #### L IP, BHCG, CDP, PT, LIVP, BMP #### [facility] [address] [place] [address] Maintenance Technician 3Rd Shift: Rashad Mckinney DO Eosinophils (Bld) [#/Vol] 0.10 10*3/uL Normal 0.0-0.4 [facility] Comment on above: Performed By: #### L IP, BHCG, CDP, PT, LIVP, BMP #### [facility] [address] [place] [address] Maintenance Technician 3Rd Shift: Rashad Mckinney DO Eosinophils/100 WBC (Bld) 2 % Normal 0-4 [facility] Comment on above: Performed By: #### L IP, BHCG, CDP, PT, LIVP, BMP #### [facility] [address] [place] [address] Maintenance Technician 3Rd Shift: Rashad Mckinney DO Erythrocyte distribution width (RBC) [Ratio] 13.0 % Normal 11.5-14.9 [facility] Comment on above: Performed By: #### L IP, BHCG, CDP, PT, LIVP, BMP #### [facility] [address] [place] [address] Maintenance Technician 3Rd Shift: Rashad Mckinney DO Hematocrit (Bld) [Volume fraction] 41.3 % Normal 36-46 [facility] Comment on above: Performed By: #### L IP, BHCG, CDP, PT, LIVP, BMP #### [facility] [address] [place] [address] Maintenance Technician 3Rd Shift: Rashad Mckinney DO Hemoglobin (Bld) [Mass/Vol] 13.8 g/dL Normal 12.0-16.0 [facility] Comment on above: Performed By: #### L IP, BHCG, CDP, PT, LIVP, BMP #### [facility] [address] [facility] [place] [address] Maintenance Technician 3Rd Shift: Rashad Mckinney DO Lymphocytes (Bld) [#/Vol] 2.10 10*3/uL Normal 1.2-5.2 [facility] Comment on above: Performed By: #### L IP, BHCG, CDP, PT, LIVP, BMP #### [facility] [place] [address] Maintenance Technician 3Rd Shift: Rashad Mckinney DO Lymphocytes/100 WBC (Bld) 30 % Normal 25-45 [facility] Comment on above: Performed By: #### L IP, BHCG, CDP, PT, LIVP, BMP #### [facility] [place] [address] Maintenance Technician 3Rd Shift: Rashad Mckinney DO MCH (RBC) [Entitic mass] 29.9 pg Normal 26-34 [facility] Comment on above: Performed By: #### L IP, BHCG, CDP, PT, LIVP, BMP #### [facility] [place] [address] Maintenance Technician 3Rd Shift: Rashad Mckinney DO MCHC (RBC) [Mass/Vol] 33.3 g/dL Normal 31-37 [facility] Comment on above: Performed By: #### L IP, BHCG, CDP, PT, LIVP, BMP #### [facility] [address] [place] [address] Maintenance Technician 3Rd Shift: Rashad Mckinney DO MCV (RBC) [Entitic vol] 89.6 fL Normal 80-100 [facility] Comment on above: Performed By: #### L IP, BHCG, CDP, PT, LIVP, BMP #### [facility] [address] [facility] [place] [address] Maintenance Technician 3Rd Shift: Rashad Mckinney DO Monocytes (Bld) [#/Vol] 0.40 10*3/uL Normal 0.1-1.3 [facility] Comment on above: Performed By: #### L IP, BHCG, CDP, PT, LIVP, BMP #### [facility] [facility] [place] [address] Maintenance Technician 3Rd Shift: Rashad Mckinney DO Monocytes/100 WBC (Bld) 6 % Normal 2-8 [facility] Comment on above: Performed By: #### L IP, BHCG, CDP, PT, LIVP, BMP #### [facility] [place] [address] Maintenance Technician 3Rd Shift: Rashad Mckinney DO Neutrophil (Seg) 61 % Normal 34-64 [facility] Comment on above: Performed By: #### L IP, BHCG, CDP, PT, LIVP, BMP #### [facility] [facility] [place] [address] Maintenance Technician 3Rd Shift: Rashad Mckinney DO Platelet mean volume (Bld) [Entitic vol] 7.2 fL Normal 6.0-12.0 [facility] Comment on above: Performed By: #### L IP, BHCG, CDP, PT, LIVP, BMP #### [facility] [place] [address] Maintenance Technician 3Rd Shift: Fanelly, Rashad, DO Platelets (Bld) [#/Vol] 272 10*3/uL Normal 150-450 [facility] Comment on above: Performed By: #### L IP, BHCG, CDP, PT, LIVP, BMP #### [facility] [address] [place] [address] Maintenance Technician 3Rd Shift: Rashad Mckinney DO RBC (Bld) [#/Vol] 4.61 10*6/uL Normal 4.0-5.2 [facility] Comment on above: Performed By: #### L IP, BHCG, CDP, PT, LIVP, BMP #### [facility] [address] [facility] [place] [address] Maintenance Technician 3Rd Shift: Rashad Mckinney DO WBC (Bld) [#/Vol] 7.0 10*3/uL Normal 4.5-13.5 [facility] Comment on above: Performed By: #### L IP, BHCG, CDP, PT, LIVP, BMP #### [facility] [address] [facility] [place] [address] Maintenance Technician 3Rd Shift: Rashad Mckinney DO HCG, ,Urineon 06-06 Beta HCG ( test) Ql (U) Negative NEGATIVE [facility] Comment on above: Specimens with hCG l evels near the threshold of the test (25 mIU/mL) may give a negative or indeterminate result. In such cases, another test should be performed with a new specimen in 48-72 hours. If early is suspected clinically in this setting, correlation with quantitative serum b-hCG level is suggested. Beta HCG ( test) Ql (U) Negative Normal NEG [facility] Comment on above: Result Comment: Spec imens with hCG levels near the threshold of the test (25 mIU/mL) may give a negative or indeterminate result. In such cases, another test should be performed with a new specimen in 48-72 hours. If early is suspected clinically in this setting, correlation with quantitative serum b-hCG level is suggested. Performed By: #### U HCG, UAX, UMICAO #### [facility] [address] [place] [address] Maintenance Technician 3Rd Shift: Rashad Mckinney DO HCG, Quanton 06-06-2022 HCG, Quant <1 Normal <5 [facility] Comment on above: Result Comment: Non-preg premeno <=5 Postmeno <=8 Male <=3 If HCG results do not concur with clinical observations, additional testing to confirm results is recommended. Performed By: #### L IP, BHCG, CDP, PT, LIVP, BMP #### [facility] [address] [place], [place] [address] Maintenance Technician 3Rd Shift: Rashad Mckinney DO HCG, Quantitative, on 06-06-2022 hCG Quant NINF [facility] Comment on above: Non-preg premeno <=5 Postmeno <=8 Male <=3 If HCG results do not concur with clinical observations, additional testing to confirm results is recommended. Hepatic Function Panelon Albumin [Mass/Vol] 5.1 g/dL 3.5 - 5.2 g/dL [facility] ALP (Bld) [Catalytic activity/Vol] 118 U/L High 35 - 104 U/L [facility] ALT [Catalytic activity/Vol] 14 U/L 5 - 33 U/L [facility] AST [Catalytic activity/Vol] 20 U/L NINF - 32 U/L [facility] Bilirubin [Mass/Vol] 0.20 mg/dL Low 0.3 - 1 .2 mg/dL [facility] Bilirubin, Indirect Can not be calculated 0 - 1 mg/dL [facility] Bilirubin.indirect [Mass/Vol] mg/dL NINF - 0.31 mg/dL [facility] Free PSA/Total PSA [Mass fraction] 7.6 g/dL 6.4 - 8.3 g/dL [facility] Lipaseon 06-06-2022 Lipase [Catalytic activity/Vol] 28 U/L 13 - 60 U/L [facility] Lipase [Catalytic activity/Vol] 28 U/L Normal 13-60 [facility] Comment on above: Performed By: #### L IP, BHCG, CDP, PT, LIVP, BMP #### [facility] [address] [place] [address] Maintenance Technician 3Rd Shift: Rashad Mckinney DO Liver Profileon 06-06-2022 Albumin [Mass/Vol] 5.1 g/dL Normal 3.5-5.2 [facility] Comment on above: Performed By: #### L IP, BHCG, CDP, PT, LIVP, BMP #### [facility] [address] [place] [address] Maintenance Technician 3Rd Shift: Rashad Mckinney DO Alkaline Phos 118 U/L High 35-104 [facility] Comment on above: Performed By: #### L IP, BHCG, CDP, PT, LIVP, BMP #### [facility] [address] [facility] [place] [address] Maintenance Technician 3Rd Shift: Rashad Mckinney DO ALT [Catalytic activity/Vol] 14 U/L Normal 5-33 [facility] Comment on above: Performed By: #### L IP, BHCG, CDP, PT, LIVP, BMP #### [facility] [address] [facility] [place] [address] Maintenance Technician 3Rd Shift: Rashad Mckinney DO AST [Catalytic activity/Vol] 20 U/L Normal <32 [facility] Comment on above: Performed By: #### L IP, BHCG, CDP, PT, LIVP, BMP #### [facility] [address] [facility] [place] [address] Maintenance Technician 3Rd Shift: Rashad Mckinney DO Bilirubin [Mass/Vol] 0.20 mg/dL Low 0.3-1.2 [facility] Comment on above: Performed By: #### L IP, BHCG, CDP, PT, LIVP, BMP #### [facility] [address] [place] [address] Maintenance Technician 3Rd Shift: Rashad Mckinney DO Bilirubin, Indirect Can not be calculated Normal 0.00- 1.00 [facility] Comment on above: Performed By: #### L IP, BHCG, CDP, PT, LIVP, BMP #### [facility] [address] [place] [address] Maintenance Technician 3Rd Shift: Rashad Mckinney DO Bilirubin.indirect [Mass/Vol] mg/dL Normal <0.31 [facility] Comment on above: Performed By: #### L IP, BHCG, CDP, PT, LIVP, BMP #### [facility] [address] [place] [address] Maintenance Technician 3Rd Shift: Rashad Mckinney DO Protein [Mass/Vol] 7.6 g/dL Normal 6.4-8.3 [facility] Comment on above: Performed By: #### L IP, BHCG, CDP, PT, LIVP, BMP #### [facility] [address] [place] [address] Maintenance Technician 3Rd Shift: Rashad Mckinney DO Microscopic Urinalysison Bacteria, UA FEW Abnormal None [facility] Casts UA 3 to 5 /LPF [facility] Epithelial Cells UA 0 TO 2 /HPF [facility] RBC, UA TOO NUMEROUS TO COUNT /HPF [facility] WBC, UA 10 TO 20 /HPF [facility] No Panel Informationon 06-06 Interpretation and review of laboratory results Abnormal [facility] PTon 06-06-2022 INR Coag (PPP) [Relative time] 0.9 {INR} Normal [facility] Comment on above: Result Comment: Non-therapeutic Range: INR = 0.9-1.2 Therapeutic Range: Moderate Anticoagulant Intensity: INR = 2.0-3.0 High Anticoagulant Intensity: INR = 2.5-3.5 Performed By: #### L IP, BHCG, CDP, PT, LIVP, BMP #### [facility] [address] [place] [address] Maintenance Technician 3Rd Shift: Rashad Mckinney DO PT Coag (PPP) [Time] 12.3 s Normal 11.8-14.6 [facility] Comment on above: Performed By: #### L IP, BHCG, CDP, PT, LIVP, BMP #### [facility] [address] [place] [address] Maintenance Technician 3Rd Shift: Rashad Mckinney DO Protime-INRon 06-06-2022 INR Coag (Bld) [Relative time] 0.9 {INR} [facility] Comment on above: Non-therapeutic Range: INR = 0.9-1.2 Therapeutic Range: Moderate Anticoagulant Intensity: INR = 2.0-3.0 High Anticoagulant Intensity: INR = 2.5-3.5 PT Coag (PPP) [Time] 12.3 s [facility] TYPE AND SCREENon 06-06-2022 ABO/Rh Positive [facility] Arm Band Number [id number] [facility] Expiration Date 06/09/2022,2359 [facility] Type + Screenon 06-06-2022 Type + Screen Sample Expiration 06/09/2022,2356 Arm Band Number [id number] ABO/Rh(D) A POSITIVE Antibody Screen NEGATIVE Normal [facility] Comment on above: Performed By: #### T YS #### [facility] [address] [place] [address] Maintenance Technician 3Rd Shift: Rashad Mckinney DO UA w/Reflex Cultureon 2021 Bilirubin, SemiQt,Ur Negative Normal NEG [facility] Comment on above: Performed By: #### U HCG, UAX, UMICAO #### [facility] [place] [address] Maintenance Technician 3Rd Shift: Rashad Mckinney DO Blood, Urine LARGE Abnormal NEG [facility] Comment on above: Performed By: #### U HCG, UAX, UMICAO #### [facility] [address] [place] [address] Maintenance Technician 3Rd Shift: Rashad Mckinney DO Clarity (U) Cloudy Abnormal CLEAR [facility] Comment on above: Performed By: #### U HCG, UAX, UMICAO #### [facility] [address] [place] [address] Maintenance Technician 3Rd Shift: Rashad Mckinney DO Color (U) Yellow Normal YEL [facility] Comment on above: Performed By: #### U HCG, UAX, UMICAO #### [facility] [address] [place] [address] Maintenance Technician 3Rd Shift: Rashad Mckinney DO Glucose Ql (U) Negative Normal NEG [facility] Comment on above: Performed By: #### U HCG, UAX, UMICAO #### [facility] [address] [place] [address] Maintenance Technician 3Rd Shift: Rashad Mckinney DO Ketones Ql (U) Negative Normal NEG [facility] Comment on above: Performed By: #### U HCG, UAX, UMICAO #### [facility] [address] [place] [address] Maintenance Technician 3Rd Shift: Rashad Mckinney DO Leukocyte esterase Test strip Ql (U) SMALL Abnormal NEG [facility] Comment on above: Performed By: #### U HCG, UAX, UMICAO #### [facility] [address] [place] [address] Maintenance Technician 3Rd Shift: Rashad Mckinney DO Nitrite,Ur Negative Normal NEG [facility] Comment on above: Performed By: #### U HCG, UAX, UMICAO #### [facility] [address] [facility] [place] [address] Maintenance Technician 3Rd Shift: Rashad Mckinney DO PH,Ur 7.5 Normal 5.0-8.0 [facility] Comment on above: Performed By: #### U HCG, UAX, UMICAO #### [facility] [address] [facility] [place] [address] Maintenance Technician 3Rd Shift: Rashad Mckinney DO Protein Ql (U) 3+ Abnormal NEG [facility] Comment on above: Performed By: #### U HCG, UAX, UMICAO #### [facility] [address] [place] [address]. [place] [address] Maintenance Technician 3Rd Shift: Rashad Mckinney DO Spec. [place],Ur 1.012 Normal 1.000-1.030 [facility] Comment on above: Performed By: #### U HCG, UAX, UMICAO #### [facility] [address] [facility] [place] [address] Maintenance Technician 3Rd Shift: Rashad Mckinney DO Urobilinogen,Ur Normal Normal NORM [facility] Comment on above: Performed By: #### U HCG, UAX, UMICAO #### [facility] [address] [place] [address]. [place] [address] Maintenance Technician 3Rd Shift: Rashad Mckinney DO Urinalysis with Reflex to Cu ltureon 06-06-2022 Bilirubin Urine Negative NEGATIVE [facility] Color, UA Yellow Yellow [facility] Glucose, Ur Negative NEGATIVE [facility] Ketones Ql (U) Negative NEGATIVE [facility] Leukocyte esterase Test strip Ql (U) SMALL Abnormal NEGATIVE [facility] Nitrite, Urine Negative NEGATIVE [facility] pH, UA 7.5 5 - 8 [facility] Protein, UA 3+ Abnormal NEGATIVE [facility] Specific [place], UA 1.012 1 - 1.03 [facility] Turbidity UA Cloudy Abnormal Clear [facility] Urine Hgb LARGE Abnormal NEGATIVE [facility] Urobilinogen, Urine Normal Normal [facility] Urinalysis,Microon 2 Bacteria FEW Abnormal NONE [facility] Comment on above: Performed By: #### U HCG, UAX, UMICAO #### [facility] [address] [place] [address] Maintenance Technician 3Rd Shift: Rashad Mckinney DO Casts 3 to 5 Normal [facility] Comment on above: Performed By: #### U HCG, UAX, UMICAO #### [facility] [address] [place] [address] Maintenance Technician 3Rd Shift: Rashad Mckinney DO Epithelial cells LM Ql (Urine sed) 0 TO 2 Normal [facility] Comment on above: Performed By: #### U HCG, UAX, UMICAO #### [facility] [place] [address] Maintenance Technician 3Rd Shift: Rashad Mckinney DO Urine RBC's TOO NUMEROUS TO COUNT Normal [facility] Comment on above: Performed By: #### U HCG, UAX, UMICAO #### [facility] [address] [place] [address] Maintenance Technician 3Rd Shift: Rashad Mckinney DO Urine WBC's 10 TO 20 Normal [facility] Comment on above: Performed By: #### U HCG, UAX, UMICAO #### [facility] [place] [address] Maintenance Technician 3Rd Shift: Rashad Mckinney DO ALBUMIN BLOODon 05-06-2022 Albumin [Mass/Vol] 4.8 g/dL Normal 3.5-5.7 [facility] Comment on above: Performed By: #### 3 1550, 50163, 97910, 67442, 10868, 10385 #### [facility] [address] [place] [address], [facility] BASIC METABOLIC PANELon 07-2 Calcium [Mass/Vol] 9.6 mg/dL Normal 8.6-10.3 [facility] Comment on above: Performed By: #### 3 1550, 57109, 67304, 24463, 39325, 75500 #### [facility] [address] [place] [address], [place] Chloride [Moles/Vol] 107 mmol/L Normal 98-107 [facility] Comment on above: Performed By: #### 3 1550, 17913, 11064, 30027, 76451, 47524 #### [facility] [address] [place] [address], [place] CO2 [Moles/Vol] 21 mmol/L Normal 21-31 [facility] Comment on above: Performed By: #### 3 1550, 36870, 01612, 40900, 74121, 84811 #### [facility] [address] [place] [address], [place] Creatinine [Mass/Vol] 1.33 mg/dL High 0.60-1.20 [facility] Comment on above: Performed By: #### 3 1550, 04890, 17406, 77160, 58553, 37749 #### [facility] [address] [place] [address], [facility] eGFR- non- 51 ml/min/1.73sq m Abnormal >60 [facility] Comment on above: Performed By: #### 3 1550, 46215, 85324, 75399, 48205, 81383 #### [facility] [address] [place] [address], [facility] GFR/1.73 sq M.predicted among blacks MDRD (S/P/Bld) [Vol rate/Area] mL/min/{1.73_m2} Normal >60 [facility] Comment on above: Performed By: #### 3 1550, 19915, 59842, 85688, 70013, 22963 #### [facility] [address] [place] [address], [facility] Glucose [Mass/Vol] 50 mg/dL Low 70-100 [facility] Comment on above: Performed By: #### 3 1550, 87726, 14664, 23034, 03777, 74961 #### [facility] [address] [place] [address], [facility] Potassium [Moles/Vol] 4.6 mmol/L Normal 3.5-5.1 [facility] Comment on above: Performed By: #### 3 1550, 00954, 10555, 51593, 37363, 45589 #### [facility] [address] [place] [address], [facility] Sodium [Moles/Vol] 140 mmol/L Normal 136-145 [facility] Comment on above: Performed By: #### 3 1550, 28467, 45995, 56222, 15594, 06972 #### [facility] [address] [place] [address], [facility] Urea nitrogen [Mass/Vol] 21 mg/dL Normal 7-25 [facility] Comment on above: Performed By: #### 3 1550, 24992, 47998, 81089, 47515, 26161 #### [facility] [address] [place] [address], [facility] CBC COMPLETE BLOOD COUNTon 0 7- Erythrocyte distribution width (RBC) [Ratio] 12.7 % Normal 11.5-15.0 [facility] Comment on above: Performed By: #### 5 0608 #### [facility] [address] [place] [address], [facility] Hematocrit (Bld) [Volume fraction] 41.8 % Normal 36.0-45.0 [facility] Comment on above: Performed By: #### 5 0608 #### [facility] [address] Hemoglobin (Bld) [Mass/Vol] 13.6 g/dL Normal 12.0-15.0 [facility] Comment on above: Performed By: #### 5 0608 #### [facility] [address] [facility] [place] [address], [facility] MCH (RBC) [Entitic mass] 29.4 pg Normal 27.0-33.0 [facility] Comment on above: Performed By: #### 5 0608 #### [facility] [address] MCHC (RBC) [Mass/Vol] 32.5 g/dL Normal 32.0-35.0 [facility] Comment on above: Performed By: #### 5 0608 #### [facility] [address] MCV (RBC) [Entitic vol] 90.5 fL Normal 82.0-98.0 [facility] Comment on above: Performed By: #### 5 0608 #### [facility] [address] Nucleated RBC/100 WBC (Bld) [Ratio] 0 % Normal 0-0 [facility] Comment on above: Performed By: #### 5 0608 #### [facility] [address] [facility] [place] [address], [facility] PLAT CNT 263 10*3/uL Normal 150-400 [facility] Comment on above: Performed By: #### 5 0608 #### [facility] [address] [place] [address], [facility] RBC (Bld) [#/Vol] 4.62 10*6/uL Normal 3.80-5.00 [facility] Comment on above: Performed By: #### 5 0608 #### [facility] [address] [place] [address], [facility] WBC (Bld) [#/Vol] 6.59 10*3/uL Normal 4.00-10.60 [facility] Comment on above: Performed By: #### 5 0608 #### [facility] [address] [place] [address], [facility] CREATININE URINE RANDOMon Creatinine (U) [Mass/Vol] 79.0 mg/dL Normal [facility] Comment on above: Result Comment: Ther e are no established reference values for random urine specimens Performed By: #### 4 1802, 00303 #### [facility] [address] [facility] [place] [address], [facility] MAGNESIUM BLOODon 05-06-2022 Magnesium [Mass/Vol] 2.0 mg/dL Normal 1.9-2.7 [facility] Comment on above: Performed By: #### 3 1550, 87382, 06926, 72414, 78643, 56398 #### [facility] [address] [facility] [place] [address], [facility] PHOSPHORUS BLOODon Phosphate [Mass/Vol] 3.6 mg/dL Normal 2.5-5.0 [facility] Comment on above: Performed By: #### 3 1550, 36098, 85490, 47465, 88781, 73987 #### [facility] [address] [facility] [place] [address], [facility] PTH INTACTon 05-06-2022 PTH INTACT 40 pg/mL Normal 12-88 [facility] Comment on above: Performed By: #### 3 1550, 47502, 14501, 92366, 38661, 36624 #### [facility] [address] [place] [address], [facility] T PROT UR [place] 05-06-2022 U TOTAL PROTEIN 90.0 mg/dL Normal [facility] Comment on above: Result Comment: Ther e are no established reference values for random urine specimens Performed By: #### 4 1802, 17652 #### [facility] [address] [place] [address], [facility] VITAMIN D 25-HYDROXYon 05-06 VITAMIN D 25-OH 37.7 ng/mL Normal 30.0-80.0 [facility] Comment on above: Result Comment: >80. 0 Toxicity possible Performed By: #### 3 1550, 92884, 39391, 29688, 12426, 44302 #### [facility] [address] [place] [address], [facility] POCT urine pregnancyon 09-14 Beta HCG ( test) Ql (U) Negative NEGATIVE [facility] Comment on above: Specimens with hCG l evels near the threshold of the test (25 mIU/mL) may give a negative or indeterminate result. In such cases, another test should be performed with a new specimen in 48-72 hours. If early is suspected clinically in this setting, correlation with quantitative serum b-hCG level is suggested. [facility] RENAL COMPLETEOrdered By: Lex Willson on 08-18-2021 Similar appearance o f kidneys with no acute findings. No hydronephrosis. Bladder calculi. [employer] Phone: EXAMINATION: RETROPERITONEAL ULTRASOUND OF THE KIDNEYS AND URINARY BLADDER 08/18/2021 COMPARISON: 02/18/2021 HISTORY: ORDERING SYSTEM PROVIDED HISTORY: Neurogenic bladder Patient catheterizes 3-4 times a day, pelviectasis FINDINGS: Kidneys: The right kidney measures 8.4 cm in length and the left kidney measures 7.4 cm in length. Kidneys remain somewhat small. Kidneys demonstrate normal cortical echogenicity. Subtle loss of corticomedullary differentiation as noted on prior exams. No evidence of hydronephrosis or intrarenal stones. Renal contours are somewhat lobular. Bladder: Bladder contours remain somewhat irregular compatible with history of neurogenic bladder. Estimated bladder volume 84 mL. No significant post catheterization residual. There appear to be a couple of adjacent shadowing echogenic foci in the dependent portion of the bladder measuring 1.2 and 1.4 cm suggesting bladder stones. [facility] Work Phone: Itz, Mhpn Incoming Radiant Results From [facility]([facility]osen) - 08/18/2021 10:12 AM EDT EXAMINATION: RETROPERITONEAL ULTRASOUND OF THE KIDNEYS AND URINARY BLADDER 08/18/2021 COMPARISON: 02/18/2021 HISTORY: ORDERING SYSTEM PROVIDED HISTORY: Neurogenic bladder Patient catheterizes 3-4 times a day, pelviectasis FINDINGS: Kidneys: The right kidney measures 8.4 cm in length and the left kidney measures 7.4 cm in length. Kidneys remain somewhat small. Kidneys demonstrate normal cortical echogenicity. Subtle loss of corticomedullary differentiation as noted on prior exams. No evidence of hydronephrosis or intrarenal stones. Renal contours are somewhat lobular. Bladder: Bladder contours remain somewhat irregular compatible with history of neurogenic bladder. Estimated bladder volume 84 mL. No significant post catheterization residual. There appear to be a couple of adjacent shadowing echogenic foci in the dependent portion of the bladder measuring 1.2 and 1.4 cm suggesting bladder stones. IMPRESSION: Similar appearance of kidneys with no acute findings. No hydronephrosis. Bladder calculi. [employer] Phone: [employer] Phone: , UrineOrdered By: Nikko Bell on 02-19-2021 Beta HCG ( test) Ql (U) Negative NEGATIVE [employer] Phone: Comment on above: Specimens with hCG l evels near the threshold of the test (25 mIU/mL) may give a negative or indeterminate result. In such cases, another test should be performed with a new specimen in 48-72 hours. If early is suspected clinically in this setting, correlation with quantitative serum b-hCG level is suggested. [facility] RENAL COMPLETEOrdered By: Debbie Desai on 02-18-2021 1. No evidence of hydronephrosis. [employer] Phone: EXAMINATION: RETROPERITONEAL ULTRASOUND OF THE KIDNEYS AND URINARY BLADDER 02/18/2021 COMPARISON: 02/05/2019 HISTORY: ORDERING SYSTEM PROVIDED HISTORY: Pelviectasis of kidney FINDINGS: Kidneys: The right kidney measures 8.9 cm in length and the left kidney measures 7.6 cm in length. No change in the slightly echogenic renal cortices due to medical renal disease. No evidence of hydronephrosis or intrarenal stones. Bladder: The bladder is only mildly distended and cannot be fully evaluated. [employer] Phone: Itz, [employer] Incoming Radiant Results From [employer] - 02/18/2021 1:53 PM EDT EXAMINATION: RETROPERITONEAL ULTRASOUND OF THE KIDNEYS AND URINARY BLADDER 02/18/2021 COMPARISON: 02/05/2019 HISTORY: ORDERING SYSTEM PROVIDED HISTORY: Pelviectasis of kidney FINDINGS: Kidneys: The right kidney measures 8.9 cm in length and the left kidney measures 7.6 cm in length. No change in the slightly echogenic renal cortices due to medical renal disease. No evidence of hydronephrosis or intrarenal stones. Bladder: The bladder is only mildly distended and cannot be fully evaluated. IMPRESSION: 1. No evidence of hydronephrosis. [employer] Phone: CBC Auto Differentialon 02-0 Basophils (Bld) [#/Vol] 0.05 10*3/uL [place] Basophils/100 WBC (Bld) 1 % 0 - 2 % [place] Differential Type NOT REPORTED [place] Eosinophils (Bld) [#/Vol] 0.13 10*3/uL [place] Eosinophils/100 WBC (Bld) 3 % 1 - 4 % [place] Erythrocyte distribution width (RBC) [Ratio] 11.9 % 11.8 - 14.4 % [place] Hematocrit (Bld) [Volume fraction] 37.7 % 36.3 - 47.1 % [place] Hemoglobin (Bld) [Mass/Vol] 12.2 g/dL 11.9 - 15.1 g/dL [place] Immature granulocytes (Bld) [#/Vol] 10*3/uL [place] Immature granulocytes (Bld) [#/Vol] 0 % 0 [place] Lymphocytes (Bld) [#/Vol] 1.97 10*3/uL [place] Lymphocytes/100 WBC (Bld) 41 % 25 - 45 % [place] MCH (RBC) [Entitic mass] 29.5 pg 25 - 35 pg [place] MCHC (RBC) [Mass/Vol] 32.4 g/dL 28.4 - 34.8 g/dL [place] MCV (RBC) [Entitic vol] 91.1 fL 78 - 102 fL [place] Monocytes (Bld) [#/Vol] 0.31 10*3/uL [place] Monocytes/100 WBC (Bld) 7 % 2 - 8 % [place] Platelet mean volume (Bld) [Entitic vol] 9.6 fL 8.1 - 13.5 fL [place] Platelets (Bld) [#/Vol] 202 10*3/uL [place] Platelets (Bld) [#/Vol] NOT REPORTED [place] RBC (Bld) [#/Vol] 4.14 10*6/uL 3.95 - 5.1 1 m/uL [place] RBC morphology finding Nom (Bld) NOT REPORTED [place] Segmented neutrophils/100 WBC (Bld) 48 % 34 - 64 % [place] Segs Absolute 2.33 [place] WBC (Bld) [#/Vol] 0.0 10*3/uL 0.0 per 10 0 WBC [place] WBC (Bld) [#/Vol] 4.8 10*3/uL [place] WBC Morphology NOT REPORTED [place] Comprehensive Metabolic Pane chris 11-25-2020 Albumin [Mass/Vol] 4.6 g/dL 3.5 - 5.2 g/dL [place] Albumin/Globulin [Mass ratio] 2.1 {ratio} [place] ALP [Catalytic activity/Vol] 83 U/L 35 - 104 U/L [place] ALT [Catalytic activity/Vol] 11 U/L 5 - 33 U/L [place] Anion gap [Moles/Vol] 8 mmol/L Low 9 - 17 mmol/L [place] AST [Catalytic activity/Vol] 18 U/L <32 [place] Bilirubin Ql (U) 0.17 mg/dL Low 0.3 - 1.2 mg/dL [place] Bun/Cre Ratio NOT REPORTED [facility] [place] Calcium [Mass/Vol] 9.5 mg/dL 8.6 - 10. 4 mg/dL [place] Chloride [Moles/Vol] 104 mmol/L 98 - 10 7 mmol/L [place] CO2 [Moles/Vol] 25 mmol/L 20 - 31 mmol/L [place] Creatinine [Mass/Vol] 1.24 mg/dL High 0.5 - 0.9 mg/dL [place] GFR NOT REPORTED >60 mL/min [place] GFR Non- Pediatric GFR requires additional information. Refer to NKDEP website for calculator. >60 mL/min [place] GFR/1.73 sq M predicted among non-blacks MDRD (S/P/Bld) [Vol rate/Area] [place] Comment on above: Average GFR for <20 years old not available. Chronic Kidney Disease: <60 mL/min/1.73sq m Kidney failure: <15 mL/min/1.73sq m eGFR calculated using average adult body mass. Additional eGFR calculator available at: http://www.Matchup/multiple_crcl_2012.htm GFR/1.73 sq M predicted among non-blacks MDRD (S/P/Bld) [Vol rate/Area] NOT REPORTED [place] Glucose [Mass/Vol] 82 mg/dL 70 - 99 mg/dL [place] Interpretation and review of laboratory results Abnormal [place] Potassium [Moles/Vol] 4.6 mmol/L 3.7 - 5.3 mmol/L [place] Protein [Mass/Vol] 6.8 g/dL 6.4 - 8.3 g/dL [place] Sodium [Moles/Vol] 137 mmol/L 135 - 144 mmol/L [place] Urea nitrogen [Mass/Vol] 21 mg/dL High 6 - 20 mg/dL [place] CBC Auto Differentialon 10-0 7-2019 Basophils (Bld) [#/Vol] 0.04 10*3/uL [place] Basophils/100 WBC (Bld) 1 % 0 - 2 % [place] Differential Type NOT REPORTED [place] Eosinophils (Bld) [#/Vol] 0.11 10*3/uL [place] Eosinophils/100 WBC (Bld) 2 % 1 - 4 % [place] Erythrocyte distribution width (RBC) [Ratio] 11.6 % Low 11.8 - 14.4 % [place] Hematocrit (Bld) [Volume fraction] 40.6 % 36.3 - 47.1 % [place] Hemoglobin (Bld) [Mass/Vol] 13.4 g/dL 11.9 - 15.1 g/dL [place] Immature granulocytes (Bld) [#/Vol] 10*3/uL [place] Immature granulocytes (Bld) [#/Vol] 0 % 0 [place] Lymphocytes (Bld) [#/Vol] 1.69 10*3/uL [place] Lymphocytes/100 WBC (Bld) 30 % 25 - 45 % [place] MCH (RBC) [Entitic mass] 30.0 pg 25 - 35 pg [place] MCHC (RBC) [Mass/Vol] 33.0 g/dL 28.4 - 34.8 g/dL [place] MCV (RBC) [Entitic vol] 90.8 fL 78 - 102 fL [place] Monocytes (Bld) [#/Vol] 0.31 10*3/uL [place] Monocytes/100 WBC (Bld) 6 % 2 - 8 % [place] Platelet mean volume (Bld) [Entitic vol] 9.0 fL 8.1 - 13.5 fL [place] Platelets (Bld) [#/Vol] NOT REPORTED [place] Platelets (Bld) [#/Vol] 240 10*3/uL [place] RBC (Bld) [#/Vol] 4.47 10*6/uL 3.95 - 5.1 1 m/uL [place] RBC morphology finding Nom (Bld) NOT REPORTED [place] Segmented neutrophils/100 WBC (Bld) 61 % 34 - 64 % [place] Segs Absolute 3.48 [place] WBC (Bld) [#/Vol] 5.6 10*3/uL [place] WBC (Bld) [#/Vol] 0.0 10*3/uL 0.0 per 10 0 WBC [place] WBC Morphology NOT REPORTED [place] Comprehensive Metabolic Pane chris 07-23-2020 Albumin [Mass/Vol] 4.8 g/dL 3.5 - 5.2 g/dL [place] Albumin/Globulin [Mass ratio] 1.9 {ratio} [place] ALP [Catalytic activity/Vol] 97 U/L 35 - 104 U/L [place] ALT [Catalytic activity/Vol] 11 U/L 5 - 33 U/L [place] Anion gap [Moles/Vol] 11 mmol/L 9 - 17 mmol/L [place] AST [Catalytic activity/Vol] 17 U/L <32 [place] Bilirubin Ql (U) 0.17 mg/dL Low 0.3 - 1.2 mg/dL [place] Bun/Cre Ratio NOT REPORTED [place] Calcium [Mass/Vol] 9.7 mg/dL 8.6 - 10. 4 mg/dL [place] Chloride [Moles/Vol] 105 mmol/L 98 - 10 7 mmol/L [place] CO2 [Moles/Vol] 23 mmol/L 20 - 31 mmol/L [place] Creatinine [Mass/Vol] 0.98 mg/dL High 0.5 - 0.9 mg/dL [place] GFR NOT REPORTED >60 mL/min [place] GFR Non- Pediatric GFR requires additional information. Refer to NKDEP website for calculator. >60 mL/min [place] GFR/1.73 sq M predicted among non-blacks MDRD (S/P/Bld) [Vol rate/Area] NOT REPORTED [place] GFR/1.73 sq M predicted among non-blacks MDRD (S/P/Bld) [Vol rate/Area] [place] Comment on above: Average GFR for <20 years old not available. Chronic Kidney Disease: <60 mL/min/1.73sq m Kidney failure: <15 mL/min/1.73sq m eGFR calculated using average adult body mass. Additional eGFR calculator available at: http://www.Matchup/multiple_crcl_2011.htm Glucose [Mass/Vol] 92 mg/dL 70 - 99 mg/dL [place] Potassium [Moles/Vol] 4.5 mmol/L 3.7 - 5.3 mmol/L [place] Protein [Mass/Vol] 7.3 g/dL 6.4 - 8.3 g/dL [place] Sodium [Moles/Vol] 139 mmol/L 135 - 144 mmol/L [place] Urea nitrogen [Mass/Vol] 16 mg/dL 6 - 20 mg/dL [place] Otheron 07-23-2020 Interpretation and review of laboratory results Abnormal [place] PTH, [place] 07-23-2020 Pth Intact 18.78 pg/mL 15 - 65 pg/mL [place] Comment on above: SAMPLES FROM PATIENT S ROUTINELY RECEIVING HIGH DOSE BIOTIN THERAPY MAY SHOW FALSELY DEPRESSED RESULTS. ADDITIONAL INFORMATION MAY BE REQUIRED FOR DIAGNOSIS. Phosphoruson 07-23-2020 Phosphate [Mass/Vol] 4.2 mg/dL 2.5 - 4 .8 mg/dL [place] Prealbuminon 07-23-2020 Prealbumin [Mass/Vol] 29.6 mg/dL 20 - 40 mg/dL [place] Echocardiogram Limited 2D w Doppler w Color Congenitalon 05-28-2020 Pediatric/Congenital Transthoracic Echocardiography (TTE) Report Demographics Patient Name ELIANA Leger Date of 05/28/2020 Study Date of 2000 Gender Female Age 19 year(s) Race Room Number [id number]^DAVID^JOSEPH LITTLE Height: 61.42 inch, 156 cm Corporate ID [id number] Weight: 94.82 pounds, 43.01 # kg Patient Acct [id number] BSA: 1.38 BMI: 17.67 # m^2 kg/m^2 MR # [id number] 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 Structurally normal heart with normal systolic function. Borderline to mildly dilated aortic root. Aortic root measured 30mm with a z-score of 2.33; aortic annulus 18mm z-score 0.20. No obvious evidence of congenital cardiac abnormalities. Compared to the previous study, no significant change. Signature - Electronically signed by Dioni Donnelly([facility]) on 05/28/2020 03:52 PM - - - Procedure Type of Study Pediatric/Congenital TTE Procedure:2D Limited/Doppler/Color Flow Map. Procedure Date Date: 05/28/2020Start: 12:20 PM Comments: Ginny Varela MD (PCP) Aortic Root Dilation Technical Quality: Good visualization Probe:5.5 MHZ. Patient Status: Outpatient HR: 72 bpmBP: 118/83 mmHg Findings Situs/Connections Normal cardiac and visceral situs (previous study). Pulmonary Veins Normal pulmonary venous return. Systemic Veins Normal systemic venous return. Atrial Septum No obvious evidence of atrial level shunting. Atria Normal atrial sizes. AV Valves Normal atrioventricular valve without stenosis. Trivial tricuspid and mitral valve regurgitation (previous study). Ventricular Septum No obvious evidence of ventricular level shunting. Ventricles Normal ventricular sizes, without evidence of hypertrophy. The biventricular systolic function is normal. Aortic Valve Normal aortic valve without evidence of stenosis and/or regurgitation. Borderline aortic root size. Aortic sinus measured 30mm (z-score; 2.33). Aortic annulus 18mm, Ascending aorta 23mm. Pulmonic Valve Normal semilunar valve without stenosis or significant regurgitation. Trivial pulmonary valve regurgitation. Coronary Arteries Both origins of the coronaries are visualized (previous study). Aorta Left-sided aortic arch with normal branching and no evidence of coarctation. Pulmonary Arteries The main and branch pulmonary arteries are normal sized without peripheral stenosis. Miscellaneous Slight pectus excavatum. Z Score ([place]) Measurement Value Range Z Measurement Value Range Z LV PW diastolic: 6 mm (4.2-9) -0.15 LVSd: 28 mm (20.9-34.4) 0.34 LV septum diastolic: 7 mm (4.4-10.2) 0.19 RVDd: 19 mm (12.4-31.8) -0.18 LVDd: 42 mm (35.5-52.5) -0.27 LA dimension: 19 mm (17.9-31.2) -1.55 AV annulus: 18 mm (14.1-20.9) 0.47 Sinuses of Valsalva: *30 mm (18.9-29) 2.27 Valves Tricuspid Valve Peak velocity:0.45 m/s Pulmonic Valve Peak velocity: 0.66 m/s Peak gradient: 1.74 mmHg Mitral Valve Peak gradient: 1.21 mmHg Peak E-Wave: 0.55 m/s Aortic Valve Annulus:18 mm Peak velocity: 0.62 m/s Peak gradient: 1.54 mmHg Structures Left Atrium LA dimension: 19 mm Left Ventricle Diastolic dimension: 42 mm Systolic dimension: 28 mm Septum diastolic: 7 mm PW diastolic: 6 mm EF calculated: 71 % FS: 33.3 % LVEDV:72.5 ml EF Teicholz:62.4 % LVESV:21 ml LVEDV index:53 ml/m^2 LVESV index:15 ml/m^2 Right Ventricle Diastolic dimension: 19 mm Vessels Aorta Sinuses of Valsalva diameter:30 mm Ascending diameter:23 mm Pulmonary Arteries Right PA peak velocity:0.51 m/s Right PA peak gradient:1 mmHg Main PA diameter: Left PA peak velocity:0.65 m/s Left PA peak gradient:2 mmHg [facility] [place], [place] Itz, Mhpn Incoming Cardio Results From Cpacs/DiBcom - 05/28/2020 3:52 PM EDT Pediatric/Congenital Transthoracic Echocardiography (TTE) Report Demographics Patient Name ELIANA Leger Date of 05/28/2020 Study Date of 2000 Gender Female Age 19 year(s) Race Room Number [id number]^SERA LITTLE Height: 61.42 inch, 156 cm Corporate ID [id number] Weight: 94.82 pounds, 43.01 # kg Patient Acct [id number] BSA: 1.38 BMI: 17.67 # m^2 kg/m^2 MR # [id number] 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 Structurally normal heart with normal systolic function. Borderline to mildly dilated aortic root. Aortic root measured 30mm with a z-score of 2.33; aortic annulus 18mm z-score 0.20. No obvious evidence of congenital cardiac abnormalities. Compared to the previous study, no significant change. Signature - - - - Procedure Type of Study Pediatric/Congenital TTE Procedure:2D Limited/Doppler/Color Flow Map. Procedure Date Date: 05/28/2020Start: 12:20 PM Comments: Ginny Varela MD (PCP) Aortic Root Dilation Technical Quality: Good visualization Probe:5.5 MHZ. Patient Status: Outpatient HR: 72 bpmBP: 118/83 mmHg Findings Situs/Connections Normal cardiac and visceral situs (previous study). Pulmonary Veins Normal pulmonary venous return. Systemic Veins Normal systemic venous return. Atrial Septum No obvious evidence of atrial level shunting. Atria Normal atrial sizes. AV Valves Normal atrioventricular valve without stenosis. Trivial tricuspid and mitral valve regurgitation (previous study). Ventricular Septum No obvious evidence of ventricular level shunting. Ventricles Normal ventricular sizes, without evidence of hypertrophy. The biventricular systolic function is normal. Aortic Valve Normal aortic valve without evidence of stenosis and/or regurgitation. Borderline aortic root size. Aortic sinus measured 30mm (z-score; 2.33). Aortic annulus 18mm, Ascending aorta 23mm. Pulmonic Valve Normal semilunar valve without stenosis or significant regurgitation. Trivial pulmonary valve regurgitation. Coronary Arteries Both origins of the coronaries are visualized (previous study). Aorta Left-sided aortic arch with normal branching and no evidence of coarctation. Pulmonary Arteries The main and branch pulmonary arteries are normal sized without peripheral stenosis. Miscellaneous Slight pectus excavatum. Z Score ([place]) Measurement Value Range Z Measurement Value Range Z LV PW diastolic: 6 mm (4.2-9) -0.15 LVSd: 28 mm (20.9-34.4) 0.34 LV septum diastolic: 7 mm (4.4-10.2) 0.19 RVDd: 19 mm (12.4-31.8) -0.18 LVDd: 42 mm (35.5-52.5) -0.27 LA dimension: 19 mm (17.9-31.2) -1.55 AV annulus: 18 mm (14.1-20.9) 0.47 Sinuses of Valsalva: *30 mm (18.9-29) 2.27 Valves Tricuspid Valve Peak velocity:0.45 m/s Pulmonic Valve Peak velocity: 0.66 m/s Peak gradient: 1.74 mmHg Mitral Valve Peak gradient: 1.21 mmHg Peak E-Wave: 0.55 m/s Aortic Valve Annulus:18 mm Peak velocity: 0.62 m/s Peak gradient: 1.54 mmHg Structures Left Atrium LA dimension: 19 mm Left Ventricle Diastolic dimension: 42 mm Systolic dimension: 28 mm Septum diastolic: 7 mm PW diastolic: 6 mm EF calculated: 71 % FS: 33.3 % LVEDV:72.5 ml EF Teicholz:62.4 % LVESV:21 ml LVEDV index:53 ml/m^2 LVESV index:15 ml/m^2 Right Ventricle Diastolic dimension: 19 mm Vessels Aorta Sinuses of Valsalva diameter:30 mm Ascending diameter:23 mm Pulmonary Arteries Right PA peak velocity:0.51 m/s Right PA peak gradient:1 mmHg Main PA diameter: Left PA peak velocity:0.65 m/s Left PA peak gradient:2 mmHg [facility] [place] Basic Metabolic Panelon 07-0 -2019 Anion gap [Moles/Vol] 12 mmol/L 9 - 17 mmol/L [place], [place] Bun/Cre Ratio NOT REPORTED [place], [place] Calcium [Mass/Vol] 9.9 mg/dL 8.4 - 10. 2 mg/dL [place] Chloride [Moles/Vol] 104 mmol/L 98 - 10 7 mmol/L [place] CO2 [Moles/Vol] 23 mmol/L 20 - 31 mmol/L [place] Creatinine [Mass/Vol] 1.19 mg/dL High 0.5 - 0.9 mg/dL [place] GFR NOT REPORTED >60 mL/min [place] GFR Non- Pediatric GFR requires additional information. Refer to NKDEP website for calculator. >60 mL/min [place] GFR/1.73 sq M predicted among non-blacks MDRD (S/P/Bld) [Vol rate/Area] NOT REPORTED [place] GFR/1.73 sq M predicted among non-blacks MDRD (S/P/Bld) [Vol rate/Area] [place] Comment on above: Average GFR for <20 years old not available. Chronic Kidney Disease: <60 mL/min/1.73sq m Kidney failure: <15 mL/min/1.73sq m eGFR calculated using average adult body mass. Additional eGFR calculator available at: http://www.Matchup/multiple_crcl_2012.htm Glucose [Mass/Vol] 80 mg/dL 60 - 100 mg/dL [place] Potassium [Moles/Vol] 4.8 mmol/L 3.6 - 4.9 mmol/L [place] Sodium [Moles/Vol] 139 mmol/L 135 - 144 mmol/L [place] Urea nitrogen [Mass/Vol] 19 mg/dL High 5 - 18 mg/dL [place] CBC Auto Differentialon 07-0 Basophils (Bld) [#/Vol] 0.03 10*3/uL [place] Basophils/100 WBC (Bld) 1 % 0 - 2 % [place] Differential Type NOT REPORTED [place] Eosinophils (Bld) [#/Vol] 0.19 10*3/uL [place] Eosinophils/100 WBC (Bld) 4 % 1 - 4 % [place] Erythrocyte distribution width (RBC) [Ratio] 11.6 % Low 11.8 - 14.4 % [place] Hematocrit (Bld) [Volume fraction] 45.2 % 36.3 - 47.1 % [place] Hemoglobin (Bld) [Mass/Vol] 14.5 g/dL 11.9 - 15.1 g/dL [place] Immature granulocytes (Bld) [#/Vol] 0 % 0 [place] Immature granulocytes (Bld) [#/Vol] 10*3/uL [place] Lymphocytes (Bld) [#/Vol] 1.70 10*3/uL [place] Lymphocytes/100 WBC (Bld) 33 % 25 - 45 % [place] MCH (RBC) [Entitic mass] 30.4 pg 25 - 35 pg [place] MCHC (RBC) [Mass/Vol] 32.1 g/dL 28.4 - 34.8 g/dL [place] MCV (RBC) [Entitic vol] 94.8 fL 78 - 102 fL [place] Monocytes (Bld) [#/Vol] 0.33 10*3/uL [place] Monocytes/100 WBC (Bld) 6 % 2 - 8 % [place] Platelet mean volume (Bld) [Entitic vol] 9.3 fL 8.1 - 13.5 fL [place] Platelets (Bld) [#/Vol] NOT REPORTED [place] Platelets (Bld) [#/Vol] 216 10*3/uL [place] RBC (Bld) [#/Vol] 4.77 10*6/uL 3.95 - 5.1 1 m/uL [place] RBC morphology finding Nom (Bld) NOT REPORTED [place] Segmented neutrophils/100 WBC (Bld) 56 % 34 - 64 % [place] Segs Absolute 2.90 [place] WBC (Bld) [#/Vol] 5.2 10*3/uL [place] WBC (Bld) [#/Vol] 0.0 10*3/uL 0.0 per 10 0 WBC [place] WBC Morphology NOT REPORTED [place] Otheron 04-23-2020 Interpretation and review of laboratory results Abnormal [place] Vitamin B12on 04-23-2020 Cobalamin (Vitamin B12) [Mass/Vol] 692 pg/mL 232 - 1245 pg/mL [place], [place] POCT urine pregnancyon 03-25 Beta HCG ( test) Ql (U) Negative NEGATIVE [place] Comment on above: Specimens with hCG l evels near the threshold of the test (25 mIU/mL) may give a negative or indeterminate result. In such cases, another test should be performed with a new specimen in 48-72 hours. If early is suspected clinically in this setting, correlation with quantitative serum b-hCG level is suggested. COVID-19on 03-22-2020 SARS-CoV-2 [place] SARS-CoV-2, PCR Not Detected Not Detected [place] Comment on above: (NOTE) The Fletcher RealTime SARS-CoV-2 assay is a real-time (rt) reverse transcriptase (RT) polymerase chain reaction (PCR) test intended for the [employer] system. The SARS-CoV-2 primer and probe sets are designed to detect RNA from SARS-CoV-2 in nasopharyngeal (INSURANCE LICENSING SUPERVISOR) and oropharyngeal (OP) swabs from patients with signs and symptoms of infection who are suspected of COVID-19. Results are for the identification of SARS-CoV-2 RNA. The SARS-CoV-2 RNA is generally detectable in a nasopharyngeal and oropharyngeal swabs during the acute phase of infection. The Fletcher RealTime SARS-CoV-2 assay is intended for use by qualified and trained clinical laboratory personnel specifically instructed and trained in the techniques of real-time PCR and in vitro diagnostic procedures. The Fletcher RealTime SARS-CoV-2 assay is only for use under the Food and Drug Administration Emergency Use Authorization. Testing is limited to laboratories certified under the Clinical Laboratory Improvement Amendments of 1988 (CLIA), 42 U.S.C. 263a, to perform high complexity tests. Not Detected: Not detected does not preclude SARS-CoV-2 infection and should not be used as the sole basis for patient management decisions. Not detected results must be combined with clinical observations, patient history, and epidemiological information. The above 1 analytes were performed by [address] [address] SARS-CoV-2, [place], [place] Source .NASOPHARYNGEAL SWAB [place], [place] [id number] 03-22-2020 SARS-CoV-2 Not Detected Normal Not Detected [facility] Comment on above: Result Comment: (NOT E) The Fletcher RealTime SARS-CoV-2 assay is a real-time (rt) reverse transcriptase (RT) polymerase chain reaction (PCR) test intended for the [employer] system. The SARS-CoV-2 primer and probe sets are designed to detect RNA from SARS-CoV-2 in nasopharyngeal (INSURANCE LICENSING SUPERVISOR) and oropharyngeal (OP) swabs from patients with signs and symptoms of infection who are suspected of COVID-19. Results are for the identification of SARS-CoV-2 RNA. The SARS-CoV-2 RNA is generally detectable in a nasopharyngeal and oropharyngeal swabs during the acute phase of infection. The Fletcher RealTime SARS-CoV-2 assay is intended for use by qualified and trained clinical laboratory personnel specifically instructed and trained in the techniques of real-time PCR and in vitro diagnostic procedures. The Fletcher RealTime SARS-CoV-2 assay is only for use under the Food and Drug Administration Emergency Use Authorization. Testing is limited to laboratories certified under the Clinical Laboratory Improvement Amendments of 1988 (CLIA), 42 U.S.C. 263a, to perform high complexity tests. Not Detected: Not detected does not preclude SARS-CoV-2 infection and should not be used as the sole basis for patient management decisions. Not detected results must be combined with clinical observations, patient history, and epidemiological information. The above 1 analytes were performed by [address] [address] Performed By: #### C OVID #### [facility] [address] [place] [address] Maintenance Technician 3Rd Shift: Bradley Parada MD [facility] [address] [place] [address] Maintenance Technician 3Rd Shift: Zeke Bay MD [facility] [address] [place] [address] Maintenance Technician 3Rd Shift: Gayathri Quintero MD [id number] 03-21-2020 SARS-CoV-2 [facility] Comment on above: Performed By: #### C OVID #### [address] [address] Maintenance Technician 3Rd Shift: Bradley Parada MD [facility] [address] [place] [address] Dr. [place], [place] [id number] Maintenance Technician 3Rd Shift: Zeke Bay MD [facility] [address] [place] [address] Maintenance Technician 3Rd Shift: Gayathri Quintero MD SARS-CoV-2 Source .NASOPHARYNGEAL SWAB [facility] Comment on above: Performed By: #### C OVID #### [address] [address] Maintenance Technician 3Rd Shift: Bradley Parada MD [facility] [address] [place] [address] Dr. [place] [id number] Maintenance Technician 3Rd Shift: Zeke Bay MD [facility] [address] [place] [address] Maintenance Technician 3Rd Shift: Gayathri Quintero MD SARS-CoV-2,Rapid [facility] Comment on above: Performed By: #### C OVID #### [address] [address] Maintenance Technician 3Rd Shift: Bradley Parada MD [facility] [address] [place] [address] Dr. [place], [place] [id number] Maintenance Technician 3Rd Shift: Zeke Bay MD [facility] [address] [place] [address] Maintenance Technician 3Rd Shift: Gayathri Quintero MD CBC Auto DifferentialOrdered By: Nikko Bell on 11-05-2019 Absolute Eos # 0.13 [facility] Work Phone: Absolute Immature Granulocyte <0.03 [facility] Work Phone: Absolute Lymph # 1.39 [facility] Work Phone: Absolute [place] # 0.29 [employer] [facility] Work Phone: Basophils (Bld) [#/Vol] 0.03 10*3/uL [employer] Phone: Basophils/100 WBC (Bld) 1 % 0 - 2 % [employer] Phone: Differential Type NOT REPORTED [employer] Phone: Eosinophils/100 WBC (Bld) 2 % 1 - 4 % [employer] Phone: Erythrocyte distribution width (RBC) [Ratio] 12.1 % 11.8 - 14.4 % [employer] Phone: Hematocrit (Bld) [Volume fraction] 45.0 % 36.3 - 47.1 % [employer] Phone: Hemoglobin (Bld) [Mass/Vol] 14.4 g/dL 11.9 - 15.1 g/dL [employer] Phone: Immature granulocytes/100 WBC (Bld) 0 % 0 [employer] Phone: Lymphocytes/100 WBC (Bld) 24 % Low 25 - 45 % [employer] Phone: MCH (RBC) [Entitic mass] 30.0 pg 25 - 35 pg [employer] Phone: MCHC (RBC) [Mass/Vol] 32.0 g/dL 28.4 - 34.8 g/dL [employer] Phone: MCV (RBC) [Entitic vol] 93.8 fL 78 - 102 fL [employer] Phone: Monocytes/100 WBC (Bld) 5 % 2 - 8 % [employer] Phone: NRBC Automated 0.0 0.0 per 100 WBC [employer] Phone: Platelet Estimate NOT REPORTED [employer] Phone: Platelet mean volume (Bld) [Entitic vol] 9.3 fL 8.1 - 13.5 fL [employer] Work Phone: Platelets (Bld) [#/Vol] 238 10*3/uL [employer] Work Phone: RBC (Bld) [#/Vol] 4.80 10*6/uL 3.95 - 5.1 1 m/uL [employer] Work Phone: RBC morphology finding Nom (Bld) NOT REPORTED [employer] Work Phone: Segmented neutrophils/100 WBC (Bld) 68 % High 34 - 64 % [employer] Work Phone: Segs Absolute 4.01 [employer] Work Phone: WBC (Bld) [#/Vol] 5.9 10*3/uL [employer] Work Phone: WBC Morphology NOT REPORTED [employer] Work Phone: Comprehensive Metabolic Pane lOrdered By: Nikko Bell on 11-05-2019 Albumin [Mass/Vol] 4.7 g/dL High 3.2 - 4.5 g/dL [employer] Phone: Albumin/Globulin [Mass ratio] 1.8 {ratio} [employer] Phone: ALP [Catalytic activity/Vol] 100 U/L 47 - 119 U/L [employer] Work Phone: ALT [Catalytic activity/Vol] 9 U/L 5 - 33 U/L [employer] Phone: Anion gap [Moles/Vol] 10 mmol/L 9 - 17 mmol/L [employer] Work Phone: AST [Catalytic activity/Vol] 15 U/L <32 [employer] Phone: Bilirubin [Mass/Vol] 0.16 mg/dL Low 0.3 - 1 .2 mg/dL [employer] Phone: Bun/Cre Ratio NOT REPORTED [facility] Work Phone: Calcium [Mass/Vol] 10.3 mg/dL High 8.4 - 10. 2 mg/dL [facility] Phone: Chloride [Moles/Vol] 99 mmol/L 98 - 10 7 mmol/L [facility] Phone: CO2 [Moles/Vol] 25 mmol/L 20 - 31 mmol/L [facility] Phone: Creatinine [Mass/Vol] 0.97 mg/dL High 0.5 - 0.9 mg/dL [facility] Phone: GFR NOT REPORTED >60 mL/min [facility] [employer] Work Phone: GFR Comment [facility] Phone: Comment on above: Average GFR for <20 years old not available. Chronic Kidney Disease: <60 mL/min/1.73sq m Kidney failure: <15 mL/min/1.73sq m eGFR calculated using average adult body mass. Additional eGFR calculator available at: http://www.Matchup/multiple_crcl_2012.htm GFR Non- Pediatric GFR requires additional information. Refer to NKDEP website for calculator. >60 mL/min [facility] Phone: GFR Staging NOT REPORTED [facility] Work Phone: Glucose [Mass/Vol] 105 mg/dL High 60 - 100 mg/dL [facility] Phone: Potassium [Moles/Vol] 4.5 mmol/L 3.6 - 4.9 mmol/L [facility] Phone: Protein [Mass/Vol] 7.3 g/dL 6 - 8 g/dL [facility] Phone: Sodium [Moles/Vol] 134 mmol/L Low 135 - 144 mmol/L [facility] Work Phone: Urea nitrogen [Mass/Vol] 13 mg/dL 5 - 18 mg/dL [employer] Work Phone: FerritinOrdered By: Nikko roca on 11-05-2019 Ferritin 15 ug/L 13 - 150 ug/L [facility] Work Phone: Iron and TIBCOrdered By: Nikko sal on 11-05-2019 Iron [Mass/Vol] 98 ug/dL 37 - 145 ug/dL [facility] Work Phone: Iron Saturation 30 % 20 - 55 % [facility] Work Phone: TIBC 323 ug/dL 250 - 450 ug/dL [facility] Work Phone: UIBC 225 ug/dL 112 - 347 ug/dL [facility] Work Phone: No Panel InformationOrdered By: Nikko Bell on 11-05-2019 Interpretation and review of laboratory results Abnormal [employer] Work Phone: PTH, IntactOrdered By: Nikko campa on 11-05-2019 Pth Intact 24.76 pg/mL 15 - 65 pg/mL [facility] [employer] Work Phone: Comment on above: SAMPLES FROM PATIENT S ROUTINELY RECEIVING HIGH DOSE BIOTIN THERAPY MAY SHOW FALSELY DEPRESSED RESULTS. ADDITIONAL INFORMATION MAY BE REQUIRED FOR DIAGNOSIS. PhosphorusOrdered By: Nikko winter on 11-05-2019 Phosphate [Mass/Vol] 4.4 mg/dL 2.5 - 4 .8 mg/dL [facility] Work Phone: Echocardiogram Sector w Dopp ler PediatricOrdered By: Dioni Donnelly on 10-03-2019 Pediatric/Congenital Transthoracic Echocardiography (TTE) Report Demographics Patient Name ELIANA Leger Date of Study 10/03/2019 Date of 2000 Gender Female Age 19 year(s) Race Room Number [id number]^DAVID^JOSEPH LITTLE Height: 61.02 inch, 155 cm Corporate ID [id number] Weight: 92.6 pounds, 42 kg # Patient Acct [id number] BSA: 1.36 BMI: 17.48 # m^2 kg/m^2 MR # [id number] Aircraft Structural Design Engineer Uvaldo Harris Interpreting Dioni Donnelly Physician Referring Referring Nurse Physician Practitioner Conclusions Summary History of chronic renal insufficiency . Structurally normal heart with normal systolic function. Borderline to mildly dilated aortic root. Aortic root measured 29mm with a z-score of 1.98; aortic annulus 19 mm z-score 1.05. No obvious evidence of congenital cardiac abnormalities. Signature - - - - Procedure Type of Study Pediatric/Congenital TTE Procedure:Echo Sector/Doppler. Procedure Date Date: 10/03/2019Start: 03:01 PM Comments: Ginny Varela MD (PCP) Dilated Aortic Root Technical Quality: Adequate visualization Probe:5.5 MHZ. Patient Status: Outpatient HR: 57 bpmBP: 99/62 mmHg Findings Situs/Connections Normal cardiac and visceral situs. Pulmonary Veins Normal pulmonary venous return. Systemic Veins Normal systemic venous return. Atrial Septum No obvious evidence of atrial level shunting. Atria Normal atrial sizes. AV Valves Normal atrioventricular valve without stenosis. Trivial tricuspid and mitral valve regurgitation. Ventricular Septum No obvious evidence of ventricular level shunting. Ventricles Normal ventricular sizes, without evidence of hypertrophy. The biventricular systolic function is normal. Aortic Valve Normal aortic valve without evidence of stenosis and/or regurgitation. Borderline aortic root size. Aortic sinus measured 27mm (z-score; 2). Aortic annulus 19mm, Ascending aorta 24mm. Pulmonic Valve Normal semilunar valve without stenosis or significant regurgitation. Trivial pulmonary valve regurgitation. Coronary Arteries Both origins of the coronaries are visualized (previous study). Aorta Left-sided aortic arch with normal branching and no evidence of coarctation. Pulmonary Arteries The main and branch pulmonary arteries are normal sized without peripheral stenosis. Miscellaneous Slight pectus excavatum. Z Score ([place]) Measurement Value Range Z Measurement Value Range Z LV PW diastolic: 6 mm (4.2-8.9) -0.12 LVSd: 26 mm (20.9-34.2) -0.22 LV septum diastolic: 6 mm (4.4-10.2) -0.49 RVDd: 18 mm (12.3-31.7) -0.38 LVDd: 40 mm (35.4-52.3) -0.73 LA dimension: 20 mm (17.8-31.1) -1.15 AV annulus: 19 mm (14.1-20.8) 1.05 Valves Tricuspid Valve Peak velocity:0.76 m/s TR velocity:2 m/s TR gradient:16 mmHg Pulmonic Valve Peak velocity: 0.77 m/s Peak gradient: 2.37 mmHg Mitral Valve Peak gradient: 3.39 mmHg Peak E-Wave: 0.92 m/s Aortic Valve Annulus:19 mm Peak velocity: 0.91 m/s Peak gradient: 3.31 mmHg Structures Left Atrium LA dimension: 20 mm LA/Aorta: 0.71 Left Ventricle Diastolic dimension: 40 mm Systolic dimension: 26 mm Septum diastolic: 6 mm PW diastolic: 6 mm EF calculated: 72.1 % FS: 35 % LVEDV:65.9 ml EF Teicholz:64.9 % LVESV:18.4 ml LVEDV index:48 ml/m^2 LVESV index:14 ml/m^2 Right Ventricle Diastolic dimension: 18 mm Vessels Aorta Root diameter:28 mm Ascending diameter:24 mm Pulmonary Arteries Right PA peak velocity:0.69 m/s Right PA peak gradient:2 mmHg Main PA diameter: Left PA peak velocity:0.68 m/s Left PA peak gradient:2 mmHg [employer] Work Phone: Izt, pn Incoming Cardio Results From [facility] - 10/03/2019 4:01 PM EST Pediatric/Congenital Transthoracic Echocardiography (TTE) Report Demographics Patient Name ELIANA Leger Date of Study 10/03/2019 Date of 2000 Gender Female Age 19 year(s) Race Room Number [id number]^DAVID^JOSEPH LITTLE Height: 61.02 inch, 155 cm Corporate ID [id number] Weight: 92.6 pounds, 42 kg # Patient Acct [id number] BSA: 1.36 BMI: 17.48 # m^2 kg/m^2 MR # [id number] Aircraft Structural Design Engineer Uvaldo Harris Interpreting Dioni Donnelly Physician Referring Referring Nurse Physician Practitioner Conclusions Summary History of chronic renal insufficiency . Structurally normal heart with normal systolic function. Borderline to mildly dilated aortic root. Aortic root measured 29mm with a z-score of 1.98; aortic annulus 19 mm z-score 1.05. No obvious evidence of congenital cardiac abnormalities. Signature - - - - Procedure Type of Study Pediatric/Congenital TTE Procedure:Echo Sector/Doppler. Procedure Date Date: 10/03/2019Start: 03:01 PM Comments: Ginny Varela MD (PCP) Dilated Aortic Root Technical Quality: Adequate visualization Probe:5.5 MHZ. Patient Status: Outpatient HR: 57 bpmBP: 99/62 mmHg Findings Situs/Connections Normal cardiac and visceral situs. Pulmonary Veins Normal pulmonary venous return. Systemic Veins Normal systemic venous return. Atrial Septum No obvious evidence of atrial level shunting. Atria Normal atrial sizes. AV Valves Normal atrioventricular valve without stenosis. Trivial tricuspid and mitral valve regurgitation. Ventricular Septum No obvious evidence of ventricular level shunting. Ventricles Normal ventricular sizes, without evidence of hypertrophy. The biventricular systolic function is normal. Aortic Valve Normal aortic valve without evidence of stenosis and/or regurgitation. Borderline aortic root size. Aortic sinus measured 27mm (z-score; 2). Aortic annulus 19mm, Ascending aorta 24mm. Pulmonic Valve Normal semilunar valve without stenosis or significant regurgitation. Trivial pulmonary valve regurgitation. Coronary Arteries Both origins of the coronaries are visualized (previous study). Aorta Left-sided aortic arch with normal branching and no evidence of coarctation. Pulmonary Arteries The main and branch pulmonary arteries are normal sized without peripheral stenosis. Miscellaneous Slight pectus excavatum. Z Score ([place]) Measurement Value Range Z Measurement Value Range Z LV PW diastolic: 6 mm (4.2-8.9) -0.12 LVSd: 26 mm (20.9-34.2) -0.22 LV septum diastolic: 6 mm (4.4-10.2) -0.49 RVDd: 18 mm (12.3-31.7) -0.38 LVDd: 40 mm (35.4-52.3) -0.73 LA dimension: 20 mm (17.8-31.1) -1.15 AV annulus: 19 mm (14.1-20.8) 1.05 Valves Tricuspid Valve Peak velocity:0.76 m/s TR velocity:2 m/s TR gradient:16 mmHg Pulmonic Valve Peak velocity: 0.77 m/s Peak gradient: 2.37 mmHg Mitral Valve Peak gradient: 3.39 mmHg Peak E-Wave: 0.92 m/s Aortic Valve Annulus:19 mm Peak velocity: 0.91 m/s Peak gradient: 3.31 mmHg Structures Left Atrium LA dimension: 20 mm LA/Aorta: 0.71 Left Ventricle Diastolic dimension: 40 mm Systolic dimension: 26 mm Septum diastolic: 6 mm PW diastolic: 6 mm EF calculated: 72.1 % FS: 35 % LVEDV:65.9 ml EF Teicholz:64.9 % LVESV:18.4 ml LVEDV index:48 ml/m^2 LVESV index:14 ml/m^2 Right Ventricle Diastolic dimension: 18 mm Vessels Aorta Root diameter:28 mm Ascending diameter:24 mm Pulmonary Arteries Right PA peak velocity:0.69 m/s Right PA peak gradient:2 mmHg Main PA diameter: Left PA peak velocity:0.68 m/s Left PA peak gradient:2 mmHg [employer] Phone: Social History Date Type Detail Facility Start: 11-23-2023 Alcohol Comment occasional [facility] Start: 11-07-2023 Alcohol Comment once a month [facility] Start: 10-04-2023 End: 01-16-2024 Alcohol intake Current drinker of alcohol (finding) [facility] Start: 11-27-2020 End: 10-04-2023 History of Social function [facility] Start: 11-27-2020 End: 10-04-2023 Tobacco use panel [facility] Start: 12-23-2022 Tobacco smoking stat us NHIS Occasional tobacco smoker [facility] Start: 09-19-2022 Sexual orientation Bisexual (finding ) [facility] Start: 06-16-2022 Gender identity Identifies as female gender (finding) [employer] Start: 05-27-2022 End: 06-06-2022 Exposure to SARS-CoV-2 (event) Not sure [employer] [place], [place] Start: 05-28-2020 End: 12-23-2022 Tobacco use and exposure Never used [facility] [place] Start: 07-30-2013 End: 03-25-2020 Tobacco smoking status NHIS Never smoker [employer] Phone: Start: 03-25-2020 End: 06-06-2022 Alcohol intake Current non-drinker of alcohol (finding) [employer] Phone: Start: 2000 Sex Assigned At Not on file [facility] [employer] Phone: Start: 2000 Sex Assigned At Female P [employer] [facility] Exposure to SARS-CoV -2 (event) Unable to assess [employer], [place] History of tobacco use Cigarette Smoker [employer] Housing Instability Unknown [facility] Vital Signs Date Time Vital Sign Value Performing Clinician Faci lity 01-16-2024 13:16-0400 Body height 157.5 cm Kathryn Nettles MD Work Phone: [email or web address] 01-16-2024 13:16-0400 Body mass index (BMI) [Ratio] 18.51 kg/m2 Kathryn Nettles MD Work Phone: [email or web address] 01-16-2024 13:16-0400 Body weight 45.9 kg Kathryn Nettles MD Work Phone: [email or web address] 01-16-2024 13:16-0400 Diastolic blood pressure 54 mm[Hg] Kathryn Nettles MD Work Phone: [email or web address] 01-16-2024 13:16-0400 Systolic blood pressure 108 mm[Hg] Kathryn Nettles MD Work Phone: [email or web address] 12-07-2023 09:20-0500 Body mass index (BMI) [Ratio] 18.07 kg/m2 Ac Mariee MD Work Phone: [facility] 12-07-2023 09:20-0500 Body weight 44.81 kg Ac Mariee MD Work Phone: [facility] 12-07-2023 09:20-0500 Diastolic blood pressure 81 mm[Hg] Ac Mariee MD Work Phone: [facility] 12-07-2023 09:20-0500 Heart rate 85 /min Ac Mariee MD Work Phone: [facility] 12-07-2023 09:20-0500 Systolic blood pressure 122 mm[Hg] Ac Mairee MD Work Phone: [facility] 11-15-2023 09:55-0500 Body mass index (BMI) [Ratio] 17.81 kg/m2 Kathryn Nettles MD Work Phone: [facility] 11-15-2023 09:55-0500 Body weight 44.18 kg Kathryn Nettles MD Work Phone: [facility] 11-15-2023 09:55-0500 Diastolic blood pressure 60 mm[Hg] Kathryn Nettles MD Work Phone: [facility] 11-15-2023 09:55-0500 Systolic blood pressure 108 mm[Hg] Kathryn Nettles MD Work Phone: [facility] 11-07-2023 14:09-0500 Body height 157.5 cm Kathryn Nettles MD Work Phone: [facility] 11-07-2023 14:09-0500 Body mass index (BMI) [Ratio] 18 kg/m2 Kathryn Nettles MD Work Phone: [facility] 11-07-2023 14:09-0500 Body weight 44.63 kg Kathryn Nettles MD Work Phone: [facility] 06-06-2022 00:12-0400 Body height 157.5 cm Markell Gamboad DO Work Phone: [employer] 06-06-2022 00:12-0400 Body mass index (BMI) [Ratio] 18.66 kg/m2 Markell Gamboad DO Work Phone: [facility] [employer] 06-06-2022 00:12-0400 Body temperature 98.4 [degF] Markell Gamboad DO Work Phone: [facility] [employer] 06-06-2022 00:12-0400 Body weight 46.27 kg Markell Gamboad DO Work Phone: [facility] [employer] 06-06-2022 00:12-0400 Diastolic blood pressure 85 mm[Hg] Markell Gamboad DO Work Phone: [facility] [employer] 06-06-2022 00:12-0400 Heart rate 94 /min Markell Gamboad DO Work Phone: [facility] [employer] 06-06-2022 00:12-0400 Respiratory rate 16 /min Markell Gamboad DO Work Phone: [facility] [employer] 06-06-2022 00:12-0400 SaO2% (BldA) [Mass fraction] 97 % Markell Gamboad DO Work Phone: [facility] [employer] 06-06-2022 00:12-0400 Systolic blood pressure 114 mm[Hg] Markell Gamboad DO Work Phone: [facility] [employer] 09-14-2021 15:27-0500 Body temperature 97.3 [degF] Lex Willson MD Work Phone: [employer] 09-14-2021 15:27-0500 Diastolic blood pressure 89 mm[Hg] Lex Willson MD Work Phone: [employer] 09-14-2021 15:27-0500 Heart rate 95 /min Lex Willson MD Work Phone: [employer] 09-14-2021 15:27-0500 Respiratory rate 18 /min Lex Willson MD Work Phone: [employer] 09-14-2021 15:27-0500 SaO2% (BldA) [Mass fraction] 100 % Lex Willson MD Work Phone: [employer] 09-14-2021 15:27-0500 Systolic blood pressure 114 mm[Hg] Lex Willson MD Work Phone: [employer] 09-14-2021 12:59-0500 Body height 157.5 cm Lex Willson MD Work Phone: [employer] 09-14-2021 12:59-0500 Body mass index (BMI) [Percentile] Per age and sex 2.52 % Lex Willson MD Work Phone: [employer] 09-14-2021 12:59-0500 Body mass index (BMI) [Ratio] 17.28 kg/m2 Lex Willson MD Work Phone: [employer] 09-14-2021 12:59-0500 Body weight 42.87 kg Lex Willson MD Work Phone: [employer] 03-25-2020 11:45-0400 Body Temperature 97.2 [degF] Dr[place], [place] 03-25-2020 11:45-0400 BP Diastolic 91 mm[Hg] [employer] , [place] 03-25-2020 11:45-0400 BP Systolic 129 mm[Hg] [employer] , [place] 03-25-2020 11:45-0400 Pulse (Heart Rate) 79 /min [employer], [place] 03-25-2020 11:45-0400 Pulse Oximetry 100 % [facility] [place] , [place] 03-25-2020 11:45-0400 Respiratory Rate 18 /min [facility], [place] Clinical Notes 09-14-2021 to 01-16-2024 Kathryn Nettles MD - 01/16/2024 1:00 PM Andrew Mariee MD - 12/07/2023 9:00 AM EST Note Date & Type Note Facility 01-16-2024 History of Present illness Narrative Agustina Pimentel is a 23 y.o.female. No LMP recorded.. She presents today to discuss options for treatment of HPV. Current contraception:no method OB History 0 Para 0 Term 0 0 AB 0 Living 0 SAB 0 IAB 0 Ectopic 0 Multiple 0 Live Births 0 MEDICAL HX Past Medical History: Diagnosis Date ADHD (attention deficit hyperactivity disorder) Anxiety Aorta disorder (CMS-HCC) enlarged following cardiology Asthma Chronic renal insufficiency is stable, hydronephrosis of left kidney, will eventually need kidney transplant llla Dental disease chipped bottom Enlarged aorta (CMS-HCC) GERD (gastroesophageal reflux disease) HL (hearing loss) Scoliosis Shortness of breath Urinary tract infection chronic, sees Dr. 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 BLADDER SURGERY age 6 mitrofanoff, self caths 4 times a day BOWEL RESECTION age 5 bowel obstruction POSTERIOR FUSION SPINAL T3-L1 N/A 07/07/2017 Performed by Mervin Eugene DO at [facility] REMOVAL CALCULUS BLADDER STONES OPEN N/A 02/24/2023 Performed by Hunter Villarreal MD at [facility] SALIVARY GLAND SURGERY Right age 12-13 FAMILY HX Family History Problem Relation Age of Onset Bipolar disorder Mother Anxiety disorder Mother Diabetes Father No Known Problems Sister Emphysema Maternal Grandmother Skin cancer Maternal Grandmother Hypertension Maternal Grandfather Diabetes Maternal Grandfather Cancer Maternal Grandfather CANCER Cancer Paternal Grandmother CANCER Other Paternal Grandfather ENLARGED HEART MEDS No current outpatient medications on file. No current facility-administered medications for this visit. ALLERGIES Allergies Allergen Reactions Ibuprofen Other (See Comments) Kidney Failure- Stage 3 Aspirin Diphenhydramine Review of Systems Review of Systems Objective There were no vitals taken for this visit. Physical Exam BP 108/54 Ht 157.5 cm (5' 2 ) Wt 45.9 kg (101 lb 3.2 oz) LMP (LMP Unknown) BMI 18.51 kg/m Physical Exam GEN AAOX3, NAD HEENT UNREMARKABLE HEART RRR LUNGS CTAB ABD BENIGN, OBESE, NTND PELVIS: EG APPROP FOR AGE, 6 CONDYLOMA ON BUTTOCKS--DESIRES REMOVED VAGINA APPROP FOR AGE, NO LESIONS BIMANUAL NO MASSES OR TENDERNESS RECTAL DEFERRED EXTREM NO CCE, NO CALF TENDERNESS Assessment/Plan: CONDYLOMA HPV ALDARA CREAM PRESCRIBED OFFERED EXCISION MD Josiane GARCIA RN documented in this encounter [facility] 12-07-2023 History of Present illness Narrative REASON FOR PRE CONCEPTION CONSULTATION: Complex pelvic surgery. HISTORY OF PRESENT ILLNESS: Agustina Pimentel is a pleasant 23 y.o. G 0. at Unknown due on Estimated Date of Delivery: None noted. . Patient was seen today due to the following 1. Here for pre conception counseling. 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 Multiple surgeries have been performed on the bladder with neurogenic bladder as the entry salt. Patient now has a urethra and uses umbilicus as the port for urination. She has a history of neurogenic bladder and underwent the Mitrofanoff procedure as a child. 2. Additionally there has been spine fusion due to complex surgery. 3. Chronic renal insufficiency with baseline creatinine of 1. Currently the patient has no complaints. The patient denies nausea, vomiting, abdominal pain, vaginal bleeding, SOB or chest pain. Patient's PMH/PSH,SH,PSYCH Hx, MEDs, ALLERGIES, and ROS were all reviewed and updated in the appropriate sections. 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 Metabolic acidosis Postoperative anemia due to acute blood loss Chronic renal insufficiency Bladder stones Atypical squamous cells of undetermined significance on cytologic smear of cervix (ASC-US) Past Medical History: Diagnosis Date ADHD (attention deficit hyperactivity disorder) Anxiety Aorta disorder (CMS-HCC) enlarged following cardiology Asthma Chronic renal insufficiency is stable, hydronephrosis of left kidney, will eventually need kidney transplant llla Dental disease chipped bottom Enlarged aorta (CMS-HCC) GERD (gastroesophageal reflux disease) HL (hearing loss) Scoliosis Shortness of breath Urinary tract infection chronic, sees Dr. 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 FAMILY/GENETIC HISTORY: No family history of VTE, cardiac defects and mental retardation . SOCIAL HISTORY:Patient denies tobacco use, alcohol use, or drug use. RECENT HOSPITALIZATION: none I did review all the labs results available in addition to labs which were ordered by the primary care physician, and the other consultants, we search on Pro[facility] Schouer and all the available care everywhere epic I did review all the imaging studies of the patient available on EMR, ordered by the primary care physician and the other school plant consultant HABITS: Patient activity no restrictions, diet no restrictions REVIEW OF SYSTEM: Head and Neck: Negative for any dizziness and headaches. Cardiovascular and Respiratory System: Denies any chest pain, shortness of breath, and coughing. Abdominal and System: Denies any abdominal pain, nausea, vomiting, vaginal bleeding, and vaginal discharge Social Determinants of Health Financial Resource Strain: n Food Insecurity: n Transportation Needs: n Physical Activity: y Social Connections: y Intimate Partner Violence: n Housing Stability: y PHYSICAL EXAMINATION: BP 122/81 Pulse 85 Wt 44.8 kg (98 lb 12.8 oz) LMP 10/08/2023 BMI 18.07 kg/m . Gravid abdomen, Respirations not labored. Well oriented time place person, normal gait MEDICAL DECISION MAKING DISCUSSION: I informed the patient that based on complex pelvic surgery with a history of neurogenic bladder and underwent the Mitrofanoff procedure as a child , he is extremely high risk for . Additionally she has chronic renal insufficiency with baseline creatinine of 1. Therefore we would recommend the patient if she gets she needs to be seen earlier by a tertiary care center where there is pelvic reconstructive surgery and bladder microcomputer support specialist. [facility] versus [facility] was discussed with the patient. At the moment we would discourage the patient to get before she sees although multispecialty team to have a planning in place before she gets . Patient is high risk and is not a candidate for delivery at [facility]. RECOMMENDATION: 1. 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 2. Patient is high risk and can not be delivered at [facility] due to multiple pelvic surgeries. DISPOSITION: At this point the patient is in complete care of her director of digital platforms. Patient does not any future appiotments scheduled with us. Thank you for allowing me to participate in Agustina Pimentel . If there any questions please do not hesitate to contact us. Sincerely, AC MARIEE MD documented in this encounter [facility] 12-07-2023 Evaluation note Diagnosis Hydronephrosis of left kidney Hydronephrosis Chronic renal impairment, stage 3 (moderate), unspecified whether stage 3a or 3b CKD ([facility]-HCC) documented in this encounter [facility]02-03-2024 Miscellaneous Notes* Telephone Encounter - CHOCO Chao - 11/19/2023 11:20 AM EST Call to pt. And discussed +chlamydia result. Advised partner tx., abstaining from intercourse [id number] after partner(s) treated. Questions answered re: side effects of medication. Advised pt. To call office Tuesday to schedule NILSON in 3-4 wks. Allergies and pharmacy verified. [facility] Telephone encounter Note* Telephone Encounter - CHOCO Chao - 11/19/2023 11:20 AM EST Call to pt. And discussed +chlamydia result. Advised partner tx., abstaining from intercourse [id number] after partner(s) treated. Questions answered re: side effects of medication. Advised pt. To call office Tuesday to schedule NILSON in 3-4 wks. Allergies and pharmacy verified. [facility]01-31-2024 Miscellaneous Notes* Telephone Encounter - CHOCO Chao - 11/16/2023 11:37 AM EST Call to pt. To discuss VNAP results and advised +for VNAP. Pt. Advised GC/CT and PAP are pending. Discussed etiology of BV, care, use of condoms, medication and how to take. Pt. Verbalized understanding. Allergies and pharmacy verified. Rx. For metronidazole PV sent. [facility] Telephone encounter Note* Telephone Encounter - CHOCO Chao - 11/16/2023 11:37 AM EST Call to pt. To discuss VNAP results and advised +for VNAP. Pt. Advised GC/CT and PAP are pending. Discussed etiology of BV, care, use of condoms, medication and how to take. Pt. Verbalized understanding. Allergies and pharmacy verified. Rx. For metronidazole PV sent. [facility]01-30-2024 History of Present illness Narrative* Kathryn Nettles MD - 11/15/2023 10:00 AM EST Annual Well Woman Visit 11/15/2023 Brad Pimentel is a 23 y.o. female who presents for annual molder fitting exam. Periods are regular every 28-30 days, lasting 6 days. Dysmenorrhea:moderate, occurring throughout menses. Cyclic symptoms includemoodiness and pelvic pain. no intermenstrual bleeding, spotting, or abnormal discharge. yes pelvic pain. Patient desires STD testing today. Complaints today: none Relationship status: in a relationship The patient reports that there is not domestic violence in her life. Sexually active: Yes Sexual concerns: no Patient works: unemployed Daily vaper IF Yes , motivated to quit NO Children NO How many n/a Current contraception: none History of abnormal Pap smear: no Last pap: n/a Regular self breast exam: no Last mammogram: n/a Family history of breast cancer: no Family history of uterine or ovarian cancer: unsure Family history of pancreatic or prostate cancer: unsure Family history of colon cancer: unsure Covid vaccinated: yes Flu shot this flu season: no HPV vaccinated: unsure PHQ9 depression screenin LMP 10/08/2023 OB History 0 Para 0 Term 0 0 AB 0 Living 0 SAB 0 IAB 0 Ectopic 0 Multiple 0 Live Births 0 The following portions of the patient's history were reviewed and updated as appropriate: allergies, current medications, past family history, past medical history, past social history, past surgicalhistory and problem list. MEDICAL HX Past Medical History: Diagnosis Date ADHD (attention deficit hyperactivity disorder) Anxiety Aorta disorder (CMS-HCC) enlarged following cardiology Asthma Chronic renal insufficiency is stable, hydronephrosis of left kidney, will eventually need kidney transplant llla Dental disease chipped bottom Enlarged aorta (CMS-HCC) GERD (gastroesophageal reflux disease) HL (hearing loss) Scoliosis Shortness of breath Urinary tract infection chronic, sees Dr. 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 BLADDER SURGERY age 6 mitrofanoff, self caths 4 times a day BOWEL RESECTION age 5 bowel obstruction POSTERIOR FUSION SPINAL T3-L1 N/A 07/07/2017 Performed by Mervin Eugene DO at [facility] REMOVAL CALCULUS BLADDER STONES OPEN N/A 02/24/2023 Performed by Hunter Villarreal MD at [facility] SALIVARY GLAND SURGERY Right age 12-13 FAMILY HX Family History Problem Relation Age of Onset Other Paternal Grandfather ENLARGED HEART Cancer Paternal Grandmother CANCER Emphysema Maternal Grandmother Skin cancer Maternal Grandmother Cancer Maternal Grandfather CANCER Diabetes Father Bipolar disorder Mother Anxiety disorder Mother No Known Problems Sister MEDS No current outpatient medications on file. No current facility-administered medications for this visit. ALLERGIES Allergies Allergen Reactions Ibuprofen Other (See Comments) Kidney Failure- Stage 3 Aspirin Diphenhydramine Review of Systems Review of Systems Objective Wt 44.2 kg (97 lb 6.4 oz) LMP 10/08/2023 BMI 17.81 kg/m Physical Exam BP 108/60 Wt 44.2 kg (97 lb 6.4 oz) LMP 10/08/2023 BMI 17.81 kg/m Physical Exam GEN AAOX3, NAD HEENT UNREMARKABLE HEART RRR LUNGS CTAB BREASTS NO MASSES, SKIN CHANGES OR LAD, NO NIPPLE DC ABD BENIGN, OBESE, NTND PELVIS: EG APPROP FOR AGE, NO LESIONS VAGINA APPROP FOR AGE, NO LESIONS BIMANUAL NO MASSES OR TENDERNESS RECTAL DEFERRED EXTREM NO CCE, NO CALF TENDERNESS Assessment/Plan: ANNUAL [employer] BMI is in the acceptable range. Breast self exam technique reviewed and patient encouraged to perform self-exam monthly. Discussed healthy lifestyle modifications. Educational material distributed. Follow up in 1 year for annual molder fitting exam. Follow up as needed. Next pap due per ASCCP guidelines. Discussed taking a multivitamin. Discussed Calcium and Vitamin D for prevention of osteoporosis. Discussed recommendations for HPV vaccine between 9-45 yo. Can be received at [employer] or the [employer] department. Discussed need for yearly mammogram after 40 yo. Discussed colon cancer screening recommendations to begin at 47 yo, patient to discuss with PCP. All questions answered. MD Josiane GARCIA RN documented in this encounterHolden Memorial HospitalCouplewise01-23-2024 Miscellaneous Notes* Telephone Encounter - Pau Dotson - 11/08/2023 11:24 AM EST Called patient about pre conception order put in by Dr Dani Nettles. Verified patients information and address, reminded her to send back 15 page packet to get scheduled. Patient confirmed, packet sent 11/08/2023. documented in [facility] Telephone encounter Note* Telephone Encounter - Pau Dotson - 11/08/2023 11:24 AM EST Called patient about pre conception order put in by Dr Dani Nettles. Verified patients information and address, reminded her to send back 15 page packet to get scheduled. Patient confirmed, packet sent 11/08/2023. [facility] nGAP [id number] Evaluation note* Diagnosis Hydronephrosis of left kidney- Primary Hydronephrosis Chronic renal impairment, stage 3 (moderate), unspecified whether stage 3a or 3b CKD ([facility]) Irregular bleeding Irregular menstrual cycle documented in this encounter [facility]01-23-[facility]24 Reason for referral (narrative)* Consultation (Routine) - Pending Review Specialty Diagnoses / Procedures Referred By Kassie guillen Referred To Contact Maternal and Medicine Diagnoses Hydronephrosis of left kidney Chronic renal impairment, stage 3 (moderate), unspecified whether stage 3a or 3b CKD ([facility]) Kathryn Nettles MD [facility] [place] [address] [facility] Maternal Med [address] [place] [address] Referral ID Status Reason Start Date Expiration Date Visits Requested Visits Authorized [id number] Pending Review Specialty Services Required 11/07/2023 11/06/2024 [address] [facility]01-22-2024 History of Present illness Narrative* Kathryn Nettles MD - 11/07/2023 2:00 PM EST Agustina Pimentel is a 23 y.o.female. Patient's last menstrual period was 10/08/2023.. She presents for questions about irregular bleeding and to check on her hormone levels. She does desire a and has been trying for the last year. She does have stage 3 kidney failure. PATIENT WITH MULTIPLE MEDICAL CHRONIC ISSUES INCLUDING STAGE III RENAL FAILURE/CHRONIC RENAL INSUFFICIENCY AND HYDRONEPHROSIS OF THE LEFT KIDNEY SHE IS COUNSELED BY HER CONTROLS TECHNICIAN THAT SHE WILL EVENTUALLY NEED A KIDNEY TRANSPLANT. SHE IS COUNSELED BECAUSE OF HER SEVERE KIDNEY DISEASE SHE IS AT INCREASED RISK FOR COMPLICATIONS INCLUDING PREECLAMPSIA AND COMPLICATIONS THEREOF SHE IS ALSO COUNSELED TO UNDERGO PRE CONCEPTUAL COUNSELING WITH MATERNAL MEDICINE FOR MORE SPECIFIC STATISTICS SHE STATES THAT SHE IS ATTEMPTING TO GET FOR GREATER THAN A YEAR IN THE PAST AND HAS CONCERNS REGARDING HER OVERALL FERTILITY AND IS CONSIDERED USING A SURROGATE BECAUSE OF ALL OF HER CHRONIC MEDICAL ISSUES. SHE IS ALSO INFORMED OF POTENTIAL UTILIZATION OF REPRODUCTIVE ENDOCRINOLOGY INFERTILITY AT A [facility]ERTIARY C[facility] C[facility] OB History No obstetric history on file. MEDICAL HX Past Medical History: Diagnosis Date ADHD (attention deficit hyperactivity disorder) Anxiety Aorta disorder (CMS-HCC) enlarged following cardiology Asthma Chronic renal insufficiency is stable, hydronephrosis of left kidney, will eventually need kidney transplant llla Dental disease chipped bottom Enlarged aorta (CMS-HCC) GERD (gastroesophageal reflux disease) HL (hearing loss) Scoliosis Shortness of breath Urinary tract infection chronic, sees Dr. 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 BLADDER SURGERY age 6 mitrofanoff, self caths 4 times a day BOWEL RESECTION age 5 bowel obstruction POSTERIOR FUSION SPINAL T3-L1 N/A 07/07/2017 Performed by Mervin Eugene DO at [facility] REMOVAL CALCULUS BLADDER STONES OPEN N/A 02/24/2023 Performed by Hunter Villarreal MD at [facility] Right age 12-13 FAMILY HX Family History Problem Relation Age of Onset Other Paternal Grandfather ENLARGED HEART Cancer Paternal Grandmother CANCER Emphysema Maternal Grandmother Skin cancer Maternal Grandmother Cancer Maternal Grandfather CANCER Diabetes Father Bipolar disorder Mother Anxiety disorder Mother No Known Problems Sister MEDS No current outpatient medications on file. No current facility-administered medications for this visit. ALLERGIES Allergies Allergen Reactions Ibuprofen Other (See Comments) Kidney Failure- Stage 3 Aspirin Diphenhydramine Review of Systems Review of Systems Objective Ht 157.5 cm (5' 2 ) Wt 44.6 kg (98 lb 6.4 oz) LMP 10/08/2023 BMI 18.00 kg/m Physical Exam Ht 157.5 cm (5' 2 ) Wt 44.6 kg (98 lb 6.4 oz) LMP 10/08/2023 BMI 18.00 kg/m Assessment/Plan: STAGE 3 CKD HIGH RISK FOR PRECONCEPTUAL COUNSELING GIVEN REFERRED TO M AUB/INF BASIC LABS MD Ana GARCIA RN documented in this encounterMer[facility]12-21-2023 Miscellaneous Notes* Telephone Encounter - Paulina Cassidy CMA - 10/06/2023 2:07 PM EST Pt was in ER recently. SHe noticed what she thought was a blood clot coming out of belly button. Per ER --it is belly fat and should be seen by urology. Please see ER note--no xrays--IS this something that needs addressed quickly?? No pain per pt. * Telephone Encounter - KELIN Wright - 10/06/2023 2:07 PM EST Can we get her in tomorrow to be seen. Hard to say what it is without actually seeing it. I do not see any notes that she called to report any problems. I see a note from Nephrology advising her to contact urology and go to ER. * Telephone Encounter - Paulina Cassidy CMA - 10/06/2023 2:07 PM EST Left message for pt to make appt--?next week with midlevel? * Telephone Encounter - Paulina Cassidy CMA - 10/06/2023 2:07 PM EST Left another message for pt on voice mail --asked pt to call office for update and let us know if appt still needed documented in this encounterHolden Memorial HospitalCouplewise12-21-2023 Telephone encounter Note* Telephone Encounter - Paulina Cassidy CMA - 10/06/2023 2:07 PM EST Pt was in ER recently. SHe noticed what she thought was a blood clot coming out of belly button. Per ER --it is belly fat and should be seen by urology. Please see ER note--no xrays--IS this something that needs addressed quickly?? No pain per pt. [employer]12-21-2023 Telephone encounter Note* Telephone Encounter - KELIN Wright - 10/06/2023 2:07 PM EST Can we get her in tomorrow to be seen. Hard to say what it is without actually seeing it. I do not see any notes that she called to report any problems. I see a note from Nephrology advising her to contact urology and go to ER. [employer] Work Phone: [phone] Telephone encounter Note* Telephone Encounter - Paulina Cassidy CMA - 10/06/2023 2:07 PM EST Left message for pt to make appt--?next week with midlevel? [employer]12-21-2023 Telephone encounter Note* Telephone Encounter - Paulina Cassidy CMA - 10/06/2023 2:07 PM EST Left another message for pt on voice mail --asked pt to call office for update and let us know if appt still needed [facility]08-31-2023 NoteNephrology Progress Patient : Agustina Pimentel; 22 y.o. Subjective: Patient is an 20 year old female with PMHx significant for chronic renal insufficiency, bilateral hydronephrosis, RTA, teratoma and neurogenic bladder referred to Adult Nephrology by her Medical Editor for transition of care. Her surgeries include bladder surgery including bladder augmentation with Mitrofanoff stoma and uretheral lengthening/reimplantation and cystoscopy for dilation of stoma. She has been followed in Pediatric Nephrology clinic for many years. She does straight catherizations and has not had an UTI in the recent past. She is planning to study nursing at [employer] and she lives in [place], [place]. She has another appointment with Dr. Bell in August and will get labs an an US of kidneys at that time. She does not have any concerns at this time. US of kidneys and bladder dated 02/18/21:. Right kidney 8.9 cm in length and left kidney 7.6 cm in length; no evidence of hydronephrosis or stones; bladder is only mildly distended and cannot be fully evaluated. Labs dated 11/25/20: BUN 21, Cr 1.24, Ca 9.5, Na 137, K 4.8, bicarb 25, WBC 4.8, Hgb 12.2, plt 202 12/31/21: Patient is an 20 year old female with PMHx significant for chronic renal insufficiency, bilateral hydronephrosis, RTA, teratoma and neurogenic bladder referred to Adult Nephrology by her Medical Editor for transition of care. Her surgeries include bladder surgery including bladder augmentation with Mitrofanoff stoma and uretheral lengthening/reimplantation and cystoscopy for dilation of stoma. She has been followed in Pediatric Nephrology clinic for many years. She does straight catherizations and has not had an UTI in the recent past. She is planning to study nursing at [employer] and she lives in [place], [place]. Seen in clinic today for regular follow up. 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 She had an appointment with Dr. Bell in August and states that she had labs and an US of kidneys at that time. States that everything was fine and was told to continue straight caths. Also, she saw an tar kettle runner doctor since she wants to get but states that she was advised to talk to her kidney doctor since can cause worsening renal function and other complications. She states that she is aware of the risks but would still like to get . 05/06/22: Patient is an 20 year old female with PMHx significant for chronic renal insufficiency, bilateral hydronephrosis, RTA, teratoma and neurogenic bladder referred to Adult Nephrology by her Medical Editor for transition of care. Her surgeries include bladder surgery including bladder augmentation with Mitrofanoff stoma and uretheral lengthening/reimplantation and cystoscopy for dilation of stoma. She has been followed in Pediatric Nephrology clinic for many years. She does straight catherizations and has not had an UTI in the recent past. Seen in clinic today for regular follow up. 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 She did not get labs done but will get them today after clinic. Labs (after clinic) BUN 21, Cr 1.33, Na 140, K 4.5, Ca 9.6, GFR 51, Mg 2, Phos 3.6, UPC 1.13, WBC 6.59, Hgb 13.6, plat 263, PTH 40, Vit D 37.7, Alb 4.8 09/02/22: Patient is an 20 year old female with PMHx significant for chronic renal insufficiency, bilateral hydronephrosis, RTA, teratoma and neurogenic bladder referred to Adult Nephrology by her Medical Editor for transition of care. Her surgeries include bladder surgery including bladder augmentation with Mitrofanoff stoma and uretheral lengthening/reimplantation and cystoscopy for dilation of stoma. She has been followed in Pediatric Nephrology clinic for many years. She does straight catherizations and has not had an UTI in the recent past. Patient seen today for follow up. Reports to be doing well. She was recently positive for chlamydia for which she received treatment. Otherwise, no fevers, chills, shortness of breath, abdominal discomfort, urinary complaints, or lower extremity swelling. She is requesting a letter with regards to to present to her OBGYN prior to explantation of her Nexplanon Vitals: 142/84, HR 81 No recent labs completed. 06/16/23: Patient is an 20 year old female with PMHx significant for chronic renal insufficiency, bilateral hydronephrosis, RTA, teratoma and neurogenic bladder referred to Adult Nephrology by her Medical Editor for transition of care. Her surgeries include bladder surgery including bladder augmentation with Mitrofanoff stoma and uretheral lengthening/reimplantation and cystoscopy for dilation of stoma. She has been followed in Pediatric Nephrology clinic for many years. She does straight catherizations and has (more content not included)...[facility]11-29-2021 Hospital Discharge instructions* Instructions* Ankush Mcmullen MD - 09/14/2021 No alcoholic beverages, no driving or operating machinery, no making important decisions for 24 hours. Children should maintain quiet play ( games, movies, books ) for 24 hours. You may have a normal diet but should eat lightly day of surgery. Drink plenty of fluids. If your catheter is not draining, call your doctor or present to the ER You may see blood in your urine for the next few days, this is expected. Remove aguilar catheter tomorrow morning Resume intermittent catheterrizations as needed documented in this encounterEzLike Phone: evalqzmlya note* Diagnosis CRI (chronic renal insufficiency), unspecified stage documented in this encounter [employer] Phone: evaltcaxwa note* Diagnosis Pelviectasis of kidney Hydronephrosis Neurogenic bladder Neurogenic bladder, NOS documented in this encounter [employer] Phone: evaluation note* Diagnosis Neurogenic bladder Neurogenic bladder, NOS Pelviectasis of kidney Hydronephrosis Mitrofanoff appendicovesicostomy present (HCC) documented in this encounter [employer] Phone: evalucvtxx note* Diagnosis Neurogenic bladder Neurogenic bladder, NOS Currarino syndrome Aortic root dilatation (HCC) Aortic ectasia, unspecified site documented in this encounter [employer] Phone: evalovyhto note* Diagnosis CRI (chronic renal insufficiency), unspecified stage documented in this encounter [employer] Phone: evaluation note* Diagnosis Abdominal cramps- Primary Abdominal pain, unspecified site Vaginal spotting Other specified noninflammatory disorder of vagina Acute cystitis with hematuria Acute cystitis documented in this encounter [facility] [employer] Phone: evaluation note* Diagnosis Smear, vaginal, as part of routine gynecological examination- Primary Special screening for malignant neoplasms, vagina Screening for STD (sexually transmitted disease) Encounter for gynecological examination without abnormal finding documented in this encounter [facility]* Diagnosis BV (bacterial vaginosis)- Primary Unspecified vaginitis and vulvovaginitis documented in this encounter [facility]* Diagnosis Chlamydia infection- Primary Unspecified chlamydial infection, in conditions classified elsewhere and of unspecified site documented in this encounter [facility]* Diagnosis Cervical smear, as part of routine gynecological examination- Primary Screening for malignant neoplasm of the cervix documented in this encounter [facility]* Diagnosis Condyloma- Primary Condyloma acuminatum HPV (human papilloma virus) anogenital infection Human papillomavirus in conditions classified elsewhere and of unspecified site documented in this encounter [facility]* Attachments The following attachments cannot be sent through Care Everywhere. * UTI (Urinary Tract Infection): Female (Bhutanese) * Abdominal Pain (Bhutanese) * Vaginal Bleeding (Bhutanese) documented in this encounterBON [employer] Phone: InstructionsNot on filedocumented in this encounter [facility]ructionsNot on filedocumented in this encounter [facility]InstructionsNot on filedocumented in this encounter [facility] SystemInstructionsNot on filedocumented in this encounter [facility] SystemInstructionsNot on filedocumented in this encounter [facility] SystemInstructionsNot on filedocumented in this encounter [facility] SystemInstructionsNot on filedocumented in this encounter [facility] SystemReason for visit Narrative* Auth/Cert Specialty Diagnoses / Procedures Referred By Kassie t Referred To Contact Diagnoses Neurogenic bladder Bladder stone NEUROGENIC BLADDER, BLADDER STONE Procedures LA OFFICE/OUTPT VISIT,PROCEDURE ONLY LA CYSTO/URETERO/PYELOSCOPY, CALCULUS TX HOLMIUM- CYSTOSCOPY, LASER LITHOTRIPSY OF BLADDER STONE Lex Willson MD [address] [address] [employer] [address] [place] [address] Referral ID Status Reason Start Date Expiration Date Visits Re quested Visits Authorized [id number] 1 1 [employer] Phone: Discharge Instructions * Instructions* Dora Guevara RN - 03/25/2020 Please follow up with Dr. Amelia Rich MD as scheduled Call your doctor for the following: Chills Temperature greater than 101 Pain that is not tolerable despite taking pain medicine as ordered If you are unable to urinate (for >6 hours). You may notice some blood in the urine for a few days which is to be expected Use betamethasone ointment for the stoma 3 times daily Use plenty of lubricant when using catheter for the stoma Continue antibiotics for 3 days Activity Restrictions: No restrictions.. Ambulating/Walking at least every 2 hours while awake is allowed and encouraged. No alcoholic beverages, no driving or operating machinery, no making important decisions for 24 hours. You may have a normal diet but should eat lightly day of surgery. No alcoholic beverages, no driving or operating machinery, no making important decisions for 24 hours. Children should maintain quiet play ( games, movies, books ) for 24 hours. You may have a normal diet but should eat lightly day of surgery. Drink plenty of fluids. Urinate within 8 hours after surgery, if unable to urinate call your doctor Call your doctor for the following: Chills Temperature greater than 101 Pain that is not tolerable despite taking pain medicine as ordered There is increased swelling, redness or warmth at surgical site There is increased drainage or bleeding from surgical site Do not remove surgical dressing unless instructed to do so by your surgeon documented in this encounter History of Present Illness * Sandi Call RN - 03/25/2020 11:42 AM EDT 1142 Pt to [facility] for phase2 documented in this encounter Advance Directives No Advanced Directives Records FoundDocuments on File Type Date Recorded 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 Advance Directives and Living Will Power of Electric Shipyard Operator Documents on File Type Date Recorded 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 Advance Directives and Living Will Power of Electric Shipyard Operator Documents on File Type Date Recorded 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 anation ACP-Advance Directive ACP-Power of Electric Shipyard Operator Documents on File Type Date Recorded 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 anation ACP-Advance Directive ACP-Power of Electric Shipyard Operator Latest Code Status on File Code Status Date Activated Date Inactivated Comments Full Code 07/07/2017 2:39 PM 07/10/2017 8:45 PM Latest Code Status on File Code Status Date Activated Date Inactivated Comments Full Code 07/07/2017 2:39 PM 07/10/2017 8:45 PM Summary Purpose Family History No Family History Records FoundNo Family History Records FoundNo Family History Records FoundNo Family History Records FoundNo Family History Records FoundNo Family History Records FoundNo Family History Records FoundNo Family History Records FoundNo Family History Records Found Assessments Diagnosis Hydronephrosis of left kidney Hydronephrosis Chronic renal impairment, unspecified CKD stage Diagnosis CRI (chronic renal insufficiency), unspecified stage Diagnosis Neurogenic bladder Neurogenic bladder, NOS Reason for Referral Status Reason Specialty Diagnoses / Procedures Referre d By Contact Referred To Contact [facility] Diagnoses Pelviectasis of kidney Neurogenic bladder Procedures US RENAL COMPLETE Debbie Desai APRN - CNP [address] [address] Status Reason Specialty Diagnoses / Procedures Re ferred By Contact Referred To Contact [facility] Diagnoses Neurogenic bladder Pelviectasis of kidney Mitrofanoff appendicovesicostomy present (HCC) Procedures US RENAL COMPLETE Lex Willson MD [address] [address] Specialty Diagnoses / Procedures Referred By Kassie guillen Referred To Contact Kathryn Nettles MD [address] [place] [address] Referral ID Status Reason Start Date Expiration Date V isits Requested Visits Authorized [id number] Pending Review 1 1 Additional Source Comments Reason for Visit (unrecogniz ed section and content) Status Reason Specialty Diagnoses / Procedures Re ferred By Contact Referred To Contact Diagnoses Neurogenic bladder Mitrofanoff appendicovesicostomy present (HCC) NEUROGENIC BLADDER, MITROFANOFF Procedures LA CYSTOURETHROSCOPY CYSTOSCOPY (SURVEILLANCE) Amelia Rich MD [address] [facility] [address] [place] [address] [facility] Status Reason Specialty Diagnoses / Procedures Referre d By Contact Referred To Contact [facility] Diagnoses Pelviectasis of kidney Neurogenic bladder Procedures US RENAL COMPLETE Debbie Desai, RICHARD - SAM [address] [facility] [address] [place] [address] Status Reason Specialty Diagnoses / Procedures Re ferred By Contact Referred To Contact [facility] Diagnoses Neurogenic bladder Pelviectasis of kidney Mitrofanoff appendicovesicostomy present (HCC) Procedures US RENAL COMPLETE Lex Willson MD [address] [facility] [address] [place] [address] Reason Comments Abdominal Pain Reason Comments Annual Exam Reason Comments Preconception Specialty Diagnoses / Procedures Referred By Kassie guillen Referred To Contact Maternal and Medicine Diagnoses Hydronephrosis of left kidney Chronic renal impairment, stage 3 (moderate), unspecified whether stage 3a or 3b CKD ([facility]) Kathryn Nettles MD [address] [place] [address] [facility] Maternal Med [address] [place] [address] Referral ID Status Reason Start Date Expiration Date Visits Requested Visits Authorized [id number] Pending Review Specialty Services Required 11/07/2023 11/06/2024 1 1 Reason Comments Herpes lesion treatment options INFORMATION SOURCE (unrecogn ized section and content) DATE CREATED AUTHOR 03/26/2020 Saulo Kelly davis DATE CREATED AUTHOR AUTHOR'S ORGANIZ ATION 05/16/2022 [facility] DATE CREATED AUTHOR AUTHOR'S ORGANIZ ATION 06/10/2022 [facility] DATE CREATED AUTHOR AUTHOR'S ORGANIZ ATION 03/25/[address] [facility] DATE CREATED AUTHOR AUTHOR'S ORGANIZ ATION 12/14/2023 [facility] DATE CREATED AUTHOR AUTHOR'S ORGANIZ ATION 01/04/2024 [facility] DATE CREATED AUTHOR AUTHOR'S ORGANIZ ATION 01/12/2024 [facility] DATE CREATED AUTHOR AUTHOR'S ORGANIZ ATION 02/06/2024 [facility] DATE CREATED AUTHOR AUTHOR'S ORGANIZ ATION 03/13/2024 [facility] Ambulatory [facility] Scheduled Active and Recently Administ ered Medications (unrecognized section and content) Medication Order 09/12/2021 09/13/2021 09/14/2021 scopolamine (TRANSDERM-SCOP) transdermal patch 1 patch 1 patch, TransDERmal, Administer over 72 Hours, ONCE, On Tue09/14/21 at 1245, For 1 dose, Remove in 72 hours. PRN. Give to patient with History of PONV., Pre-op (day of surgery) 1245 (Due) Continuous Medication Order 09/12/2021 09/13/2021 09/14/2021 lactated ringers infusion IntraVENous, at 125 mL/hr, CONTINUOUS, Starting on Tue09/14/21 at 1245, Pre-op (day of surgery) 1310 (New Bag - Prov ider: Peyton Dyson RN)1353 (NoRateChange - Provider: RICHARD Orellana CRNA)1453 (Paused - Provider: RICHARD Orellana CRNA - Comment: Switch to gravity)1454 (Restarted - Provider: RICHARD Orellana CRNA) PRN Medication Order 09/12/2021 09/13/2021 09/14/2021 fentaNYL (SUBLIMAZE) injection 25 mcg 25 mcg, IntraVENous, EVERY 5 MIN PRN, for moderate pain 4-6, Starting on Tue09/14/21 at 1218, For 4 doses, Please do not administer prior to obtaining consent and/or history and physical., Pre-op (day of surgery) fentaNYL (SUBLIMAZE) injection 25 mcg 25 mcg, IntraVENous, EVERY 5 MIN PRN, Pain Moderate (4-6), Starting on Tue09/14/21 at 1413, For 4 doses, Phase I - Initial therapy for moderate pain., PACU only fentaNYL (SUBLIMAZE) injection 50 mcg 50 mcg, IntraVENous, EVERY 5 MIN PRN, Pain Severe (7-10), Starting on Tue09/14/21 at 1413, For 4 doses, Phase I - Initial therapy for severe pain., PACU only lidocaine PF 1 % injection 1 mL 1 mL, IntraDERmal, ONCE PRN, IV start, Starting on Tue09/14/21 at 1218, For 1 dose, Pre-op (day of surgery) meperidine (DEMEROL) injection 12.5 mg 12.5 mg, IntraVENous, EVERY 5 MIN PRN, Shivering, , Starting on Tue09/14/21 at 1413, May give every 5 minutes to max of 50mg., PACU only midazolam PF (VERSED) injection 1 mg 1 mg, IntraVENous, EVERY 10 MIN PRN, Anxiety, Anxiety pre-op. Max dose 2 mg., Starting on Tue09/14/21 at 1218, For 2 doses, Pre-op (day of surgery) ondansetron (ZOFRAN) injection 4 mg 4 mg, IntraVENous, DAILY PRN, Nausea, Call if no response, Starting on Tue09/14/21 at 1218, Pre-op (day of surgery) ondansetron (ZOFRAN) injection 4 mg 4 mg, IntraVENous, ONCE PRN, Nausea, Starting on Tue09/14/21 at 1413, For 1 dose, PACU only sodium chloride 0.9 % irrigation (COMPLETED) CONTINUOUS PRN, Starting on Tue09/14/21 at 1359, Intra-op 1359 (New Bag - Prov ider: Lex Willson MD - Comment: CYSTO) sterile water for irrigation (CANCELED) PRN, Starting on Tue09/14/21 at 1359, Intra-op 1359 (Given - Provid er: Lex Willson MD - Comment: POURED TO BACK TABLE) Scheduled Medication Order 06/04/2022 06/05/2022 06/06/2022 0.9 % sodium chloride bolus (COMPLETED) 1,000 mL (21.6 mL/kg), IntraVENous, at 495.9 mL/hr, Administer over 121 Minutes, ONCE, On Tue06/06/22 at 0030, For 1 dose 0048 (New Bag - Prov ider: Judith Powell RN)0208 (Stopped - Provider: Sandi Thomas RN) Care Teams (unrecognized sec tion and content) Gr[employer] 1 [employer] 6 Teacher Relationship Specialty [place] [id number] [address] PCP - General Family Medicine 02/18/21 Gr[employer] 1 [employer] 6 Teacher Relationship Specialty Start Date End Date Apurva Engle DO PCP - General Family Medicine 02/18/21 Gr[employer] 1 [employer] 6 Teacher Relationship Specialty Start Date End Date Apurva Engle DO [address] [place] [address] PCP - General Family Medicine 12/02/20 Gr[employer] 1 [employer] 6 Teacher Relationship Specialty Start Date End Date Apurva Engle DO [address] [place] [address] PCP - General Family Medicine 12/02/20 Gr[employer] 1 [employer] 6 Teacher Relationship Specialty Start Date End Date Apurva Engle DO [address] [place] [address] PCP - General Family Medicine 12/02/20 Grades 1 [employer] 6 Teacher Relationship Specialty Start Date End Date Apurva Engle DO [address] [place], [place] [id number] PCP - General Family Medicine 12/02/20 Gr[employer] 1 [employer] 6 Teacher Relationship Specialty Start Date End Date Apurva Engle DO [address] [place] [address] PCP - [facility] 12/02/20 Gr[employer] 1 [employer] 6 Teacher Relationship Specialty Start Date End Date Apurva Engle DO [address] [place] [address] PCP - [facility] 12/02/20 Gr[employer] 1 [employer] 6 Teacher Relationship Specialty Start Date End Date Apurva Engle DO [address] [place] [address] PCP - [facility] 12/02/20 Grades 1 Through 6 Teacher Relationship Specialty Start Date End Date Apurva Engle DO [address] [place] [address] PCP - [facility] 12/02/20 FOR RECORDS PERTAINING TO PATIENTS WHO ARE OR HAVE BEEN ENROLLED IN A CHEMICAL DEPENDENCY/SUBSTANCEABUSE PROGRAM, SOME INFORMATION MAY BE OMITTED. This clinical summary was aggregated from multiple sources. Caution should be exercised in using it in the provision of clinical care. This summary normalizes information from multiple sources, and as a consequence, information in this document may materially change the coding, format and clinical context of patient data. In addition, data may be omitted in some cases. CLINICAL DECISIONS SHOULD BE BASED ON THE PRIMARY CLINICAL RECORDS. [facility]. provides no warranty or guarantee of the accuracy or completeness of information in this document.
[2024-03-18 19:38] LABS: Basophils Absolute Auto 0.1 10^3/uL (0.0-0.1); Basophils Percent Auto 1.2 % (0.2-2.0); Eosinophils Absolute Auto 0.1 10^3/uL (0.0-0.7); Eosinophils Percent Auto 1.6 % (0.9-7.0); Hematocrit 41.4 % (36.0-48.0); Hemoglobin 13.8 g/dL (12.0-16.0); Immature Granulocytes Abs Auto 0.02 10^3/uL (0.00-0.03); Immature Granulocytes Pct Auto 0.3 % (0.0-0.5); Lymphocytes Absolute Auto 1.7 10^3/uL (1.2-3.8); Mean Corpuscular HGB Conc 33.3 g/dL (29.9-35.2); Mean Corpuscular Hemoglobin 30.3 pg (26.7-34.0); Mean Corpuscular Volume 90.8 fL (81.0-99.0); Mean Platelet Volume 9.5 fL (9.5-13.5); Monocytes Absolute Auto 0.5 10^3/uL (0.3-0.8); Monocytes Percent Auto 6.9 % (1.7-12.0); Platelet Count 244 10^3/uL (150-450); Red Blood Count 4.56 10^6/uL (4.20-5.40); Red Cell Distribution Width 11.9 % (11.0-15.0); White Blood Count 7.4 10^3/uL (4.0-11.0)
[2024-03-18 20:22] LABS: Anion Gap 12.9; BUN Creatinine Ratio 14.9; Calcium 9.4 mg/dL (8.5-10.1); Carbon Dioxide 25.6 mmol/L (21.0-32.0); Chloride 100 mmol/L (98-107); Estimated GFR (African America >60 (>=60); Estimated GFR (Non-African Ame >60 (>=60); Glucose 85 mg/dL (74-106); HCG Quantitative 28655 mIU/mL; Potassium 3.5 mmol/L (3.5-5.1); Sodium 135 mmol/L (136-145)
--- NOTE | 2024-03-18 20:27 | US_ITS ---
The [address] [address] Patient Name: AGUSTINA MONROY MRN: [id number] date: 2000 Sex: F Assigned Patient Location: ER Current Patient Location: ER Accession/Order Number: [id number] Exam Date: 03/18/2024 21:30 Report Date: 03/18/2024 22:16 At the request of: CANDELARIO TINEO Procedure: US OB transvaginal EXAM: 1st Trimester Sonogram HISTORY: Light bleeding and cramping rule out ectopic TECHNIQUE: B- and M-mode ultrasound with color doppler. COMPARISON: None available FINDINGS: An intrauterine gestational sac is visualized containing small yolk sac measuring 2 mm. A pole is not yet visualized. Cervix is long and closed measuring 3.5 cm. Right ovary is normal in size and echotexture. Small right ovarian cyst measures 1.4 x 1.6 x 2.1 cm. Left ovary is not visualized. No adnexal masses. Biometry: 1. GS: 0.8 x 1.2 x 1.2 cm corresponding to 5 weeks 1 day. LMP: 01/30/2024 Average age by LMP: 6 weeks 6 days Average age by US: 5 weeks 1 day. US/US OB transvaginal IMPRESSION: Likely early intrauterine gestation with a gestational sac measuring 5 weeks 1 day. No pole is yet visualized. No definite ectopic however, left ovary is not visualized limiting evaluation. Recommend repeat sonogram in 2 weeks to document viability or sooner if clinically indicated and continued trending of beta-hCG. Electronically authenticated by: KVNG KELLY Date: 03/18/2024 22:16
[2024-03-18 21:07] VITALS: BP 120/77; PULSE 86; O2SAT 99
[2024-03-18 22:30] VITALS: BP 122/78; PULSE 69; O2SAT 99
== END 2024-03-18 22:30 | disposition home or self-care (01) ==
PROVIDERS: Emergency Provider Emergency Medicine
DX: O20.0 Threatened abortion (principal); Z3A.01 Less than 8 weeks gestation of pregnancy
CPT/HCPCS: 36415; 76817; 80048; 84702; 85025; 86900; 86901; 99284

== ENCOUNTER 2024-06-14 23:12 | Emergency (ER) | payer OTHER, SELFPAY ==
[2024-06-14 23:19] VITALS: BP 112/84; PULSE 94; TEMP 37.2; O2SAT 98; BMI 19.4
--- NOTE | 2024-06-14 23:42 | PC.NURSE ---
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
--- OUTSIDE RECORDS SUMMARY | 2024-06-14 23:43 | XMS_ITS | CCD ---
Author Organization [facility] Care Team Providers Care Field Contact Technician Name Role Phone Ginny Varela Primary Care Provider JUAN DAVID LUNA Referring Unavailable GINNY VARELA Primary Care Unavailable Ginny Varela Primary Care Provider [phone] Melissa TEJEDA Apurva Primary Care Provider Melissa TEJEDA Apurva Primary Care Provider Griselda Varela MDti Primary Care Provider Rumjosephlapranay DO Apurva Primary Care Provider RUMSCHLAG, APURVA Primary Care Unavailable MARKELL FERNANDO Attending Unavailable WILL DUMONTID Admitting Unavailable MEHDI DUMONT Attending Unavailable MEHDI DUMONT Consulting Unavailable RUMSCHLAG, APURVA Primary Care Unavailable DAIANA Bergeron, DR ELMORE Admitting Unavailable DR RAMÍREZ VILLASENOR Attending Unavailable DR RAMÍREZ VILLASENOR Consulting Unavailable [facility] AP[facility]VA Primary Care Unavailable WALT COOK Consulting Unavailabl e DIAB ., ANGELES Admitting Unavailable DIAB ., ANGELES Attending Unavailable RUMSCHLAG, APURVA Primary Care Unavailable MEHDI DUMONT Attending Unavailable WALT COOK Consulting Unavailabl e RUMSCHLAG, APURVA Primary Care Unavailable WILL DUMONTID Admitting Unavailable JOSE PADILLA Consulting Unavailable SURENDRA, JACK Admitting Unavailable INOCENTE, DR BROOKS Primary Care Unavailable JACK BENDER Attending Unavailable REY BENDERYL Consulting Unavailable GAYATHRI WANG Consulting Unavailable SURENDRA, JACK Admitting Unavailable REY BENDERYL Attending Unavailable SURENDRA, JACK Consulting Unavailable RUMSCHLAG, APURVA Primary Care Unavailable DIAB ., ANGELES Consulting Unavailable WILL DUMONTID Admitting Unavailable MEHDI DUMONT Attending Unavailable RUMSCHLAG, APURVA Primary Care Unavailable MEHDI DUMONT Consulting Unavailable Rumschlag DO, Apurva K Primary Care Provider LOR LOZANO Attending Unavailable KATIA MEI Attending Unavailable KATIA MEI Referring Unavailable RUMSCHLAG, APURVA Primary Care Unavailable JAKOBKATHRYN Attending Unavailable RUMSCHLAG, APURVA K Referring Unavailable RUMSCHLAG, APURVA K Primary Care Unavailable JAKOBKATHRYN L Attending Unavailable RUMSCHLAG, APURVA K Referring Unavailable RUMSCHLAG, APURVA K Primary Care Unavailable JAKOBKATHRYN L Attending Unavailable RUMSCHLAG, APURVA K Referring Unavailable RUMSCHLAG, APURVA K Primary Care Unavailable JAKOBKATHRYN L Attending Unavailable RUMSCHLAG, APURVA K Referring Unavailable RUMSCHLAG, APURVA K Primary Care Unavailable KARIME GUERRERO Attending Unavailable RUMSCHLAG, APURVA K Primary Care Unavailable KARIME GUERRERO Attending Unavailable KARIME GUERRERO Referring Unavailable RUMSCHLAG, APURVA K Primary Care Unavailable KARIME GUERRERO Attending Unavailable KARIME GUERRERO Referring Unavailable RUMSCHLAG, APURVA K Primary Care Unavailable ALANNA CUMMINGS Referring Unavailable RUMSCHLAG, APURVA K Primary Care Unavailable ALANNA CUMMINGS M Referring Unavailable RUMSCHLAG, APURVA K Primary Care Unavailable ALANNA CUMMINGS M Attending Unavailable ZOILA ALANNA M Referring Unavailable RUMSCHLAG, APURVA K Primary Care Unavailable RUMSCHLAG, APURVA K Primary Care Unavailable KARIME GUERRERO Attending Unavailable JAKOBKATHRYN L Referring Unavailable RUMSCHLAG, APURVA K Primary Care Unavailable Alanna Cummings CNP M Unavailable CONSTANCE LOJA I Attending Unavailable RUMSCHLAG, APURVA K Referring Unavailable RUMSCHLAG, APURVA K Primary Care Unavailable JAKOB, KATHRYN L Referring Unavailable RUMSCHLAG, APURVA K Primary Care Unavailable AC MARIEE Attending Unavailable JAKOB, KATHRYN L Referring Unavailable RUMSCHLAG, APURVA K Primary Care Unavailable Lesa Agrawal RN Unavailable Unavailable DUNIA ANGELES Attending Unavailab NAHOMY Soriano Referring Unavailable NAHOMY CARCAMO Referring Unavailable NAHOMY CARCAMO Attending Unavailable JUDITH CAMPOS Attending Unavailabl NAHOMY Huerta Referring Unavailable DUNIA ANGELES Attending Unavailab le Allergies Allergy Classification Reported Allergen(s) Allergy Type Date of Onset Reaction(s) Facility Aspirin (1 source) Aspirin; Translations: [ASPIRIN] Drug Allergy 3 [facility] diphenhydrAMINE (1 source) diphenhydrAMINE; Translations: [DIPHENHYDRAMINE ] Drug Allergy 3 [facility] NSAIDs (1 source) Ibuprofen; Translations: [IBUPROFEN] Drug Allergy 2 [facility] (20 sources) Ibuprofen; Translations: [IBUPROFEN] Drug Allergy 2 Other (See Comments), Other: See Comments [facility] (1 source) Ibuprofen Drug Allergy 3 [facility] Rep[facility] (11 sources) Aspirin; Translations: [ASPIRIN] [facility] diphenhydrAMINE; Translations: [DIPHENHYDRAMINE ] Drug Allergy 3 Unknown [facility] Medications Current Medications Medication Drug Class(es) Dates Sig (Normalized) Sig (Original) acetaminophen (TYLENOL) 40 MG/0.4 ML infant drops (3 sources) Start: 06-22-2006 acetaminophen (TYLENOL) 40 MG/0.4 ML drops ACETAMINOPHEN ORAL 0 06/22/2006 Active Acetaminophen / HYDROcodone (1 source) Opioid Agonist Start: 03-25-2020 End: 03-25-2020 HYDROcodone-acetamin ophen (NORCO) 5-325 MG per tablet 1 tablet [id number] 200 actuat albuterol 0.09 mg/actuat metered dose [...] the lungs every 4 hours 0 Active aspirin 81 mg delayed release oral tablet (5 sources) Platelet Aggregation Inhibitor, Nonsteroidal Anti-inflammatory Drug Start : 05-07 End: 11-03 take 1 tablet by mouth once daily aspirin, enteric coated (ECOTRIN LOW STRENGTH) 81 mg EC tablet Take 1 tablet by mouth once daily. 180 tablet 0 05/07/2024 11/03/2024 Active azithromycin 500 mg oral tablet (1 [...] stoma. 1 Tube 0 03/25/2020 04/24/2020 Active blood pressure test kit-small (BLOOD PRESSURE MONITOR SM CUFF) (4 sources) Start : 05-07 blood pressure test kit-small (BLOOD PRESSURE MONITOR SM CUFF) 1 Each once daily as needed. 1 Kit 0 05/07/2024 Active calcitriol 0.57710 mg oral capsule (16 sources) Vitamin D3 Analog Start : 11-25 calcitRIOL (ROCALTROL) 0.25 MCG capsule Indications: CRI (chronic renal insufficiency), unspecified stage Take one capsule three times a week 12 capsule 6 11/25/2020 Active Start: 07-01-2020 take 1 capsule by [facility] three times weekly calcitRIOL (ROCALTROL) 0.25 MCG capsule Indications: CRI (chronic renal insufficiency), unspecified stage TAKE 1 CAPSULE BY MOUTH THREE TIMES A WEEK 12 capsule 0 07/01/2020 Active Start: 03-03-2020 take 1 capsule by [facility] three times weekly calcitRIOL (ROCALTROL) 0.25 MCG capsule Indications: CRI (chronic renal insufficiency), unspecified stage Take 1 capsule by mouth three times a week 12 capsule 2 03/03/2020 Active Start: 11-05-2019 take 1 capsule by [facility] three times weekly calcitRIOL (ROCALTROL) 0.25 MCG capsule Indications: CRI (chronic renal insufficiency), unspecified stage TAKE 1 CAPSULE BY MOUTH THREE TIMES A WEEK 12 capsule 0 11/05/2019 Active Start: 09-05-2019 take 1 capsule by [facility] three times weekly calcitRIOL (ROCALTROL) 0.25 MCG [...] With insertion supplies 120 each 08/30/2018 Active cephalexin 500 mg oral capsule (5 sources) Cephalosporin Antibacterial Start: 04-18-2024 End: 04-28-2024 take 1 capsule by mouth four times daily cephALEXin (KEFLEX) 500 mg capsule Take 1 capsule by mouth four times daily for 10 days. 40 capsule 0 04/18/2024 04/28/2024 Active cholecalciferol 0.05 mg oral tablet (16 sources) Vitamin D Cholecalciferol 2000 UNITS TABS Take 1,000 Units by mouth daily 0 Active enalapril maleate 2.5 mg oral tablet (3 sources) Angiotensin Converting Enzyme Inhibitor Start: 09-05-2019 take 1 tablet by mouth once daily enalapril (VASOTEC) 2.5 MG tablet Indications: HTN, age 0-18 TAKE 1 TABLET BY MOUTH ONCE DAILY 30 tablet 0 09/05/2019 Active escitalopram 20 mg oral tablet (15 sources) Serotonin Reuptake Inhibitor Start: 08-11-2021 take 1 tablet by mouth once daily [...] daily 30 tablet 5 03/03/2020 08/30/2020 Active Folic Acid (10 sources) FOLIC ACID ORAL Indications: Supervision of high risk , antepartum Take by mouth. 0 Active guanFACINE 1 mg oral tablet (3 [...] 10 mg by mouth nightly 0 Active nitrofurantoin, macrocrystals 25 mg / nitrofurantoin, monohydrate 75 mg oral capsule (4 sources) Nitrofuran Antibacterial Start: 05-07-2024 End: 11-03-2024 take 1 capsule by mouth once daily at bedtime nitrofurantoin monohydrate and macrocrystal (MACROBID) 100 mg capsule Take 1 capsule by mouth daily at bedtime. Take with food. 180 capsule 0 05/07/2024 11/03/2024 Active omeprazole 20 mg delayed release oral [...] End: 09-14-2021 ondansetron (ZOFRAN) injection 4 mg Ghpniava-Tr-Abg-Fe-FA tab (10 sources) Start: 04-24-2024 take 1 tablet by mouth once daily Heczujis-Wi-Yse- Fe-FA tab Indications: Supervision of high risk , antepartum Take 1 tablet by mouth once daily. 90 tablet 3 04/24/2024 Active sulfamethoxazole 800 mg / trimethoprim 160 mg [...] back 4000 mL 12 02/18/2021 02/25/2021 Active triamcinolone acetonide 1 mg/ml topical cream (1 source) Corticosteroid Start: 03-05-2024 End: 04-27-2024 triamcinolone acetonide (KENALOG) 0.1 % cream Apply to affected area two times a day. 0 03/05/2024 04/27/2024 Discontinued Problems Active Problems Problem Classification Problem Date Documented Da te Episodic/Chronic Abdominal pain (11 sources) Finding of sensation of abdomen; Translations: [Unspecified abdominal pain] Onset: 01-03-2023 Episodic Anxiety disorders (5 sources) Generalized anxiety disorder; Translations: [Generalized anxiety disorder] Onset: 05-09-2024 05-09-2024 Chronic Aortic; peripheral; and visceral artery aneurysms (16 sources) Aortic root dilatation; Translations: [Thoracic aortic ectasia] Onset: 01-10-2024 Chronic Bacterial infection; unspecified site (1 source) Chlamydial infection; Translations: [Chlamydial infection, unspecified] 11-19-2023 Episodic Calculus of urinary tract (12 sources) Calculus in bladder; Translations: [Urinary bladder stone] Onset: 11-16-2022 03-15-2023 Episodic Cancer of cervix (13 sources) Cervical atypism; Translations: [Atypical squamous cells [...] 01-05-2023 Episodic Genitourinary symptoms and ill-defined conditions (15 sources) Urostomy present; Translations: [Appendico-vesicosto my status] Onset: 03-01-2023 Chronic Headache; including migraine (1 source) Headache; including migraine; Translations: [HEADACHE UNSPECIFIED] Onset: 01-26-2023 Hemorrhage during ; abruptio placenta; placenta previa (1 source) Hemorrhage in early , unspecified; Translations: [Hemorrhage in early , unspecified] Onset: 03-22-2024 Episodic Inflammatory diseases of female pelvic organs (1 source) Bacterial vaginosis; Translations: [Acute vaginitis] 11-16-2023 Episodic Menstrual disorders (3 sources) Irregular periods; Translations: [Irregular menstruation, unspecified] Onset: 11-07-2023 11-07-2023 Chronic Neoplasms of unspecified nature or uncertain behavior (14 sources) Neoplasm of sacrum; 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] Onset: 04-27-2024 04-27-2024 Episodic Other acquired deformities (5 sources) Scoliosis deformity of spine; Translations: [Scoliosis, unspecified] Onset: 05-09-2024 05-09-2024 Chronic Other aftercare (4 sources) Encounter for follow-up examination after completed treatment for conditions other than malignant neoplasm; Translations: [ENC F/U EX AFTR CMPL TX NOT MAL CONRAD] Onset: 03-03-2023 Episodic Other bone disease and musculoskeletal deformities (10 sources) Adolescent idiopathic scoliosis of thoracic spine; Translations: [Adolescent idiopathic scoliosis, thoracic region] Onset: 07-07-2017 07-07-2017 Chronic Other complications of (14 sources) High risk ; Translations: [Supervision of high risk , unspecified, unspecified trimester] Onset: 04-27-2024 04-24-2024 Episodic Other complications of (1 source) Supervision of high risk , unspecified, unspecified trimester; Translations: [Supervision of high risk , antepartum] Onset: 05-09-2024 Episodic Other congenital anomalies (1 source) Currarino triad [...] [Abnormal uterine and vaginal bleeding, unspecified] Chronic Other screening for suspected conditions (not mental disorders or infectious disease) (10 sources) Abnormal findings on diagnostic imaging of other abdominal regions, including retroperitoneum; Translations: [Encounter for screening for malignant neoplasm of vagina] Onset: 01-05-2023 05-07-2024 Episodic Residual codes; unclassified (14 sources) FH: Hypertension; Translations: [Personal history of other complications of , childbirth and the puerperium] Onset: 04-27-2024 04-27-2024 Episodic Residual codes; unclassified (1 source) Gestation period, 11 weeks; Translations: [11 weeks gestation of ] 04-24-2024 Episodic Residual codes; unclassified (1 source) Gestation period, 13 weeks; Translations: [13 weeks gestation of ] 05-07-2024 Episodic Residual codes; unclassified (2 sources) Gestation period, 16 weeks; Translations: [16 weeks gestation of ] 05-30-2024 Episodic Residual codes; unclassified (1 source) History of excision of intestinal structure; Translations: [Acquired absence of other specified parts of digestive tract] 05-30-2024 Episodic Spondylosis; intervertebral disc disorders; other back problems (1 source) Radiculopathy, lumbar region; Translations: [RADICULOPATHY LUMBAR REGION] Onset: 02-09-2023 Episodic Substance-related disorders (1 source) Nicotine dependence, cigarettes, uncomplicated; Translations: [NICOTINE DEPEND CIGARETTES UNCOMP] Onset: 01-26-2023 Chronic Unclassified (3 sources) LOW BACK PAIN, UNSPECIFIED; Translations: [LOW BACK PAIN, UNSPECIFIED] Onset: 02-09-2023 Unclassified (1 source) Herpes lesion treatment options Onset: 01-16-2024 Unclassified (1 source) Annual Exam Onset: 11-15-2023 Unclassified (1 source) Wound Check Onset: 10-04-2023 Unclassified (10 sources) [facility] Education - COMMON Onset: 04-24-2024 04-24-2024 Unclassified (10 sources) Education - [place] Onset: 04-24-2024 04-24-2024 Unclassified (1 source) Preconception Onset: 12-07-2023 Urinary tract infections (8 sources) Acute cystitis; Translations: [Acute cystitis with hematuria] Onset: 01-26-2023 Episodic Viral infection (3 sources) Anogenital human papillomavirus infection; Translations: [Anogenital (venereal) warts] Onset: 01-16-2024 01-16-2024 Episodic Past or Other Problems Problem Classification Problem Date Documented Date Episodic/Chronic Acute posthemorrhagic anemia (10 sources) Anemia following acute postoperative blood loss; Translations: [Acute posthemorrhagic anemia] Onset: 07-08-2017 07-08-2017 Episodic Fluid and electrolyte disorders (10 sources) [...] sources) Mood disorders Onset: 11-15-2023 11-15-2023 Other circulatory disease (7 sources) Disorder of aorta; Translations: [Other specified disorders of arteries and arterioles] Onset: 05-07-2024 Resolved: 05-09-2024 05-07-2024 Chronic Other diseases of kidney and ureters (20 sources) Hydronephrosis; Translations: [Unspecified hydronephrosis] Onset: 02-03-2011 Resolved: 05-09-2024 02-03-2011 Episodic Other diseases of kidney and ureters (10 sources) Vesicoureteric reflux; Translations: [Vesicoureteral-reflu x, unspecified] Onset: 07-07-2017 07-07-2017 Episodic Other diseases of kidney and ureters (2 sources) Unspecified hydronephrosis; Translations: [Unspecified hydronephrosis] Onset: 07-07-2017 Episodic Residual codes; unclassified (10 sources) Disorder of stature; 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] Onset: 07-30-2013 07-30-2013 Episodic Unclassified (1 source) LOW BACK PAIN, UNSPECIFIED; Translations: [LOW BACK PAIN, UNSPECIFIED] Onset: 02-07-2023 NEGATED: Highlighted row has been ruled out!Unclassified (2 sources) No known active problems 04-18-2024 Results Test Name Value Interpretation Reference Range Facil ity CREATININE, 24 HOUR URINEon 05-30-2024 Creatinine (24H U) [Mass/Time] 1.179 g/24 hr Normal 0.800-1.800 [facility] Comment on above: Order Comment: Speci men Type: URINE SPECIMENOrdering Facility: [facility] Address: [address] [place] [address] Performed By: #### U CRD ####[facility] LABCLIA [id number] [facility] [id number] [place]IL[place] [id number] [facility] Examination level ultrasound on 05-30-2024 Indication Early anatomic survey, maternal history of sacrococcygeal teratoma, multiple bowel obstructions and kidney disease Impression The patient is referred for an early anatomic survey because of identified risk factors. - Single, live, intrauterine . - biometry is consistent with the established gestational age. NIPT negative. - No malformations were visualized on an early anatomic assessment, although some anatomical structures were suboptimally seen as detailed below. Visualization of anatomy was incomplete secondary to position. - The amniotic fluid volume is normal amount. - The placenta is posterior. - Not all structural malformations can be detected by ultrasound examination. Cervix is long and closed. Recommendations Ultrasound exam in 4 weeks to complete anatomy survey and reevaluate growth. Clinical correlation. Maternal Assessment Height 157 cm Height (ft) 5 ft Height (in) 2 in Physical Exam Initial weight (lb) 95 lb Initial BMI 17.38 kg/m Method Transabdominal ultrasound examination. View: Adequate visualization Sood . Number of fetuses: 1 Dating LMP on: 02/06/2024 GA by LMP 16 w + 2 d MATT by LMP: 11/12/2024 Ultrasound examination on: 05/30/2024 GA by U/S based upon: AC, BPD, Femur, HC GA by U/S 16 w + 1 d MATT by U/S: 11/13/2024 Assigned: based on the LMP, selected on 05/07/2024 Assigned GA 16 w + 2 d Assigned MATT: 11/12/2024 General Evaluation Cardiac activity present. FHR 155 bpm. movements: present. Presentation: transverse head left Placenta: Placental site: posterior Umbilical cord: Cord vessels: 3 vessel cord. Insertion site: normal insertion Amniotic fluid: Amount of AF: normal amount Biometry Standard BPD 33.4 mm 16w 3d 51% Hadlock OFD 42.1 mm 15w 0d 8% Nicolaides HC 120.0 mm 15w 4d 27% Pavel Cerebellum tr 16.1 mm 16w 4d 43% Hill Nuchal fold 2.3 mm AC 106.8 mm 16w 4d 62% Hadlock Femur 19.7 mm 15w 6d 35% Pavel Humerus 21.0 mm 16w 2d 57% Pavel EFW 146 g 16w 0d 32% Hadlock EFW (lb) 0 lb EFW (oz) 5 oz EFW by: Hadlock (HC-AC-FL) Extended CM 3.5 mm 32% Nicolaides Extremities / Bony Struc FL / HC 0.16 31% Hadlock Other Structures FHR 155 bpm Anatomy Cranium: normal Lateral ventricles: suboptimal Choroid plexus: normal Midline falx: normal Cerebellum: normal Cisterna magna: normal Lips: suboptimal Profile: normal Nose: suboptimal Face Maxilla: normal Mandible: normal Orbits: normal Lens: normal 4-chamber view: normal RVOT view: normal LVOT view: normal 3-vessel view: suboptimal 7-cweuzu-sumkqer view: normal Heart / Thorax Aortic arch view: normal Diaphragm: normal Cord insertion: normal Stomach: normal Kidneys: normal Bladder: normal Cervical spine: normal Thoracic spine: normal Lumbar spine: normal Sacral spine: normal Arms: normal Legs: normal Rt upper arm: normal Rt forearm: normal Rt hand: normal Lt upper arm: normal Lt forearm: normal Lt hand: normal Rt upper leg: normal Rt lower leg: normal Rt foot: normal Lt upper leg: normal Lt lower leg: normal Lt foot: normal Maternal Structures Uterus / Cervix Uterus: Visualized Approach: Transabdominal Cervical length 42.2 mm Other: Patient declined transvaginal ultrasound for cervical length. Performed By: Rox Kenyon RDMS Read By: Jose Maria Amador M.D. MATERNAL MEDICINE [facility] Radiology Study observation (narrative) [facility] Prot 24h Ur-mRateon 05-30-20 24 PERIOD (HRS) 24 hr Normal [facility] Comment on above: Order Comment: Speci men Type: BLOOD SPECIMEN [facility] Address: [address] [place] [address] Performed By: #### T SPN #### [facility] CLIA [id number] [address] [place] [address] [place] Order Comment: Speci men Type: URINE SPECIMENOrdering Facility: [facility] Address: [address] [place] [address] Performed By: #### U CRD ####[facility] LABCLIA [id number] [place] [address] [place] Protein (24H U) [Mass/Time] 0.35 g/24 Hr High <0.15 [facility] Comment on above: Order Comment: Speci men Type: BLOOD SPECIMEN [facility] Address: [address] [place] [address] Result Comment: Adul t Proteinuria Categories: <0.15 g/24 hours is considered normal to mildly increased 0.15 - 0.50 g/24 hours is considered moderately increased >0.50 g/24 hours is considered severely increased KDIGO. (2013). KDIGO 2012 Clinical Practice Guideline for the Evaluation and Management of Chronic Kidney Disease. Official Journal of the International Society of Nephrology, 3(1), 1-150. Performed By: #### T SPN #### [facility] BLOOD B[facility] CLIA [id number] [address] [place] [address] [place] Specimen volume (24H U) 1.5 L Normal [facility] Comment on above: Order Comment: Speci men Type: BLOOD SPECIMEN [facility] Address: [address] [place] [address] Performed By: #### T SPN #### [facility] CLIA [id number] [address] [place] [address] [place] Order Comment: Speci men Type: URINE SPECIMENOrdering Facility: [facility] Address: [address] [place] [address] Performed By: #### U CRD ####[facility] LABCLIA [id number] [place] [address] [place] URINE OB DIP B/Oon Glucose Ql (U) Negative Neg mg/dL [facility] Interpretation and review of laboratory results Normal [facility] Protein.monoclonal (U) [Mass/Vol] Negative Neg mg/dL [facility] CNPNon 05-28-2024 CNPN Telephone ([facility]) ELIANAAGUSTINA ([id number]) 4 F DEF Date Time Provider Department 05/28/24 JUDITH CAMPOS [facility] During your visit today, we recorded the following information about you: Ary Saleem 05/28/2024 10:47 AM Signed Omid is calling Judith Campos MD today with concern regarding headaches lasting for 3 days and unsure if there is anything she can take in regards to these headaches with . Patient has been identified by name and birthdate. Duration of symptoms: 3 days Person calling: self Call patient at: on cell [phone] (home) [phone] (cell) Was an appointment scheduled: No Closing statement: Symptom Call: Thank you for calling [facility], your call is very important. A nurse will call in approximately 2-4 hours during business hours. If this is an emergency, please contact 911. Tita Jose RN 05/28/2024 12:54 PM Signed Called patient. No answer, LVM to call back. ANGIE Panchal Kara, RN 05/30/2024 2:16 PM Signed Pt has appointment today with Dr Andres Marcos RN Allergies As of Date: 05/28/2024 Noted Allergy Reaction IBUPROFEN 06/06/2022 14 - Other: See Comments Comments: Kidney Failure- Stage 3 Kidney Failure- Stage 3 DIPHENHYDRAMINE 10/04/2023 16 - Unknown Date Reviewed: 05/07/2024 Reviewed by: Leti Sam MA - Fully Assessed Reason for Visit: Patient Update [1234] Cmt: Headache concerns in early Prescriptions as of 05/30/2024 - blood pressure test kit-small (BLOOD PRESSURE MONITOR SM CUFF) 1 Each once daily as needed. - nitrofurantoin monohydrate and macrocrystal (MACROBID) 100 mg capsule Take 1 capsule by mouth daily at bedtime. Take with food. - aspirin, enteric coated (ECOTRIN LOW STRENGTH) 81 mg EC tablet Take 1 tablet by mouth once daily. - FOLIC ACID ORAL Take by mouth. - Dcovaxlm-Yp-Twd-Fe-FA tab Take 1 tablet by mouth once daily. Problem List As Of Date 05/28/2024 Noted Resolved Supervision of high risk , antepartum *04/27/2024 Aortic root dilation (HCC) [I77.810] 04/27/2024 Chronic renal impairment [N18.9] 04/27/2024 Hydronephrosis of left kidney [N13.30] 04/27/2024 05/09/2024 Mitrofanoff appendicovesicostomy present (HCC) *04/27/2024 History of sacrococcygeal teratoma of sacrum [D*04/27/2024 History of maternal hypertension [Z87.59] 04/27/2024 ASCUS with positive high risk HPV cervical [R87*04/27/2024 Enlarged aorta (HCC) [I77.89] 05/07/2024 05/09/2024 Generalized anxiety disorder [F41.1] 05/09/2024 Recurrent urinary tract infection [N39.0] 05/09/2024 Scoliosis [M41.9] 05/09/2024 H/O abdominal surgery [Z98.890] 05/09/2024 Observation for suspected genetic condition [Z0*05/09/2024 Encounter Status:Closed by REBEKAH MARCOS on 05/30/24 Normal [facility] Bacteria Ur Culton 4 Bacteria identified Cx Nom (U) ORGANISM ID: 1 <1,000 CFU/ml Normal urogenital daniel Normal [facility] Comment on above: Performed By: #### T SPN #### CC MAIN BLOOD BANK [facility] [id number] [address] [place] [address] [place] nuchal translucency me asured by Sanjuana 05-07-2024 Indication First trimester anatomic survey Impression 23 yo at 13w0d presenting for first trimester anatomy survey. Low risk cfDNA. 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 - Single, live, intrauterine . - [place] rump length measurement is consistent with the established gestational age. - A qualitative screen of the nuchal translucency and other anatomic structures was unremarkable on a complete first trimester anatomic assessment. - Not all structural malformations can be detected by ultrasound examination. - A standard anatomic survey at 16 weeks and a detailed exam at 20 weeks is recommended for increased risk. Recommendations - A standard anatomic survey at 16 weeks and a detailed exam at 20 weeks for increased risk. - Additional follow up as clinically indicated. See consult note from today. Maternal Assessment Height 157 cm Height (ft) 5 ft Height (in) 2 in Weight 46 kg Weight (lb) 101 lb BMI 18.47 kg/m Physical Exam Initial weight (lb) 95 lb Initial BMI 17.38 kg/m Method Transabdominal ultrasound examination Sood . Number of fetuses: 1 Dating LMP on: 02/06/2024 GA by LMP 13 w + 0 d MATT by LMP: 11/12/2024 Ultrasound examination on: 05/07/2024 GA by U/S based upon: CRL GA by U/S 13 w + 1 d MATT by U/S: 11/11/2024 Assigned: based on the LMP, selected on 05/07/2024 Assigned GA 13 w + 0 d Assigned MATT: 11/12/2024 General Evaluation Cardiac activity present Placenta: posterior Cord vessels: 3 vessel cord Amniotic fluid: normal amount Biometry Standard FHR 161 bpm CRL 69.0 mm 13w 1d 54% [place] First Trimester Anatomy Calvarium: normal Falx cerebri: normal Choroid plexus: normal Profile: normal Nasal bone: normal Retronasal triangle: normal Maxilla: normal Mandible: normal Nuchal translucency: Unremarkable Situs: normal Cardiac position: normal Cardiac axis: normal 4-chamber view: normal 4-chamber view with color: normal 2-tpomrz-zzcruux view: normal Abdominal cord insertion: normal Stomach: normal Kidneys: normal Bladder: normal Color doppler of perivesical umbilical arteries: normal Vertebral alignment: normal Arms: normal Hands: normal Legs: normal Feet: normal Maternal Structures Uterus / Cervix Uterus: Visualized Ovaries / Tubes / Adnexa Rt ovary: Visualized Rt ovary D1 28 mm Rt ovary D2 31 mm Rt ovary D3 18 mm Rt ovary Vol 8.4 cm Lt ovary: Visualized Lt ovary D1 24 mm Lt ovary D2 20 mm Lt ovary D3 11 mm Lt ovary Vol 2.7 cm Performed By: Lucila Bowles RDMS Read By: Dunia Angeles MD. MATERNAL MEDICINE [facility] Radiology Study observation (narrative) [facility] Donovan 04-30-2024 CNPN Telephone (OGFVWE) AGUSTINA PIMENTEL ([id number]) 4 F DEF Date Time Provider Department 04/30/24 [employer]IN[employer] MECH[employer]IC OGFVWE During your visit today, we recorded the following information about you: Rudolph Lorenzo RN 04/30/2024 12:10 PM Signed 1st risk assessment form submitted 04/30/24 Rudolph Lorenzo RN Allergies As of Date: 04/30/2024 (No Known Allergies) Date Reviewed: 04/18/2024 Reviewed by: Marvin Choi APRN.TRIPLE AIR VALVE TESTER - Fully Assessed Reason for Visit: PRAF [4193] Prescriptions as of 04/30/2024 - FOLIC ACID ORAL Take by mouth. - Qelzvxff-Ar-Hyw-Fe-FA tab Take 1 tablet by mouth once daily. Problem List As Of Date 04/30/2024 Noted Resolved Supervision of high risk , antepartum *04/27/2024 Aortic root dilation (HCC) [I77.810] 04/27/2024 Chronic renal impairment [N18.9] 04/27/2024 Hydronephrosis of left kidney [N13.30] 04/27/2024 Mitrofanoff appendicovesicostomy present (HCC) *04/27/2024 History of sacrococcygeal teratoma of sacrum [D*04/27/2024 History of maternal hypertension [Z87.59] 04/27/2024 ASCUS with positive high risk HPV cervical [R87*04/27/2024 Encounter Status:Closed by RUDOLPH LORENZO on 04/30/24 Normal [facility] CNPN Telephone (OBGYST) AGUSTINA PIMENTEL ([id number]) 4 F DEF Date Time Provider Department 04/30/24 NAHOMY CARCAMO OBSLOANE During your visit today, we recorded the following information about you: Nahomy Carcamo PA-C 04/30/2024 9:57 AM Signed Patient's NIPT screening test came back normal! The gender will be listed. If still planning on surprise gender/gender reveal, please do not open the results listed as [id number] PLUS. SHANDRA Robertson Cassandra, RN 04/30/2024 10:59 AM Signed Called pt and ID by name and . Informed pt of normal/low risk NIPT results, pt would like results released to [facility] to view gender at home. Released results to pt chart. Karley Elam RN Allergies As of Date: 04/30/2024 (No Known Allergies) Date Reviewed: 04/18/2024 Reviewed by: Marvin Choi APRN.TRIPLE AIR VALVE TESTER - Fully Assessed Prescriptions as of 04/30/2024 - FOLIC ACID ORAL Take by mouth. - Uwlqudkq-Aj-Pzx-Fe-FA tab Take 1 tablet by mouth once daily. Problem List As Of Date 04/30/2024 Noted Resolved Supervision of high risk , antepartum *04/27/2024 Aortic root dilation (HCC) [I77.810] 04/27/2024 Chronic renal impairment [N18.9] 04/27/2024 Hydronephrosis of left kidney [N13.30] 04/27/2024 Mitrofanoff appendicovesicostomy present (HCC) *04/27/2024 History of sacrococcygeal teratoma of sacrum [D*04/27/2024 History of maternal hypertension [Z87.59] 04/27/2024 ASCUS with positive high risk HPV cervical [R87*04/27/2024 Encounter Status:Closed by NAHOMY CARCAMO on 04/30/24 [facility] Donovan 04-27-2024 [facility] AGUSTINA PIMENTEL ([id number]) 4 F DEF Date Time Provider Department 04/27/24 HISTORICAL OBMFMN During your visit today, we recorded the following information about you: Zuleyma Gomez 04/27/2024 2:32 PM Signed Referral to [facility] received. Cardiac OB has already reached out to patient to discuss scheduling. Allergies As of Date: 04/27/2024 (No Known Allergies) Date Reviewed: 04/18/2024 Reviewed by: Marvin Choi APRN.TRIPLE AIR VALVE TESTER - Fully Assessed Prescriptions as of 04/27/2024 - FOLIC ACID ORAL Take by mouth. - Veusmohn-Ks-Jtx-Fe-FA tab Take 1 tablet by mouth once daily. - cephALEXin (KEFLEX) 500 mg capsule Take 1 capsule by mouth four times daily for 10 days. Problem List As Of Date 04/27/2024 Noted Resolved Supervision of high risk , antepartum *04/27/2024 Aortic root dilation (HCC) [I77.810] 04/27/2024 Chronic renal impairment [N18.9] 04/27/2024 Hydronephrosis of left kidney [N13.30] 04/27/2024 Mitrofanoff appendicovesicostomy present (HCC) *04/27/2024 History of sacrococcygeal teratoma of sacrum [D*04/27/2024 History of maternal hypertension [Z87.59] 04/27/2024 ASCUS with positive high risk HPV cervical [R87*04/27/2024 Encounter Status:Closed by ZULEYMA GOMEZ on 04/27/24 [facility] Donovan 04-26-2024 [facility] AGUSTINA PIMENTEL ([id number]) 02 [facility] Date Time Provider Department 04/26/24 LESA AGRAWAL [facility] During your visit today, we recorded the following information about you: Lesa Agrawal RN 04/27/2024 2:02 PM Signed Call to patient to schedule COB visit. Patient requests call back Tuesday as she is driving and unavailable to talk. Will call back. ANGIE Aguilar Samantha, RN 04/30/2024 11:37 AM Signed Call to patient to schedule Cardio OB visit. No answer. Sapheneia message sent ANGIE Aguilar Samantha, RN 04/30/2024 11:46 AM Signed Referring Physician: Beltran OB: SHANDRA Carcamo Bass Viol Repairer: MD Agustina Mei is a 23 year old with an of Estimated Date of Delivery: 11/12/24 HISTORY OF PRESENT ILLNESS: 1. Borderline aortic root dilation 2. Pectus Excavatum 3. Chest pain 4. Chronic renal insufficiency, bilateral hydronephrosis, renal tubular acidosis 5. Sacrococcygeal teratoma s/p surgery. Cardio-OB NURSING INTAKE OB history: none Cardiac history: mild aortic root dilation and chest pain. (31mm, z-score of 2.6). Genetic testing performed None Desired delivery location: [place] ANGIE Aguilar Samantha, RN 04/30/2024 11:46 AM Signed Addended by: LESA AGRAWAL on: 04/30/2024 11:46 AM Modules accepted: Orders Allergies As of Date: 04/26/2024 (No Known Allergies) Date Reviewed: 04/18/2024 Reviewed by: Marvin Choi APRN.TRIPLE AIR VALVE TESTER - Fully Assessed Primary Visit Diagnosis:Aortic root dilation (HCC) [I77.810] Order(s):CONSULT TO [facility]ARDIO-OBSTETRICS CL[facility]IC [[id number]] Order #: [id number]: 1 ECHO SPECIALIST COMPLEX ADULT CONGENITAL [[id number]] Order #: [id number]: 1 FUTURE Prescriptions as of 04/30/2024 - FOLIC ACID ORAL Take by mouth. - Zeefclzq-Mh-Elg-Fe-FA tab Take 1 tablet by mouth once daily. Problem List As Of Date: 04/26/2024 (None) Encounter Status:Closed by LESA AGRAWAL on 04/27/24 Normal [facility] C. trachomatis+N. gonorrhoea e DNA DADA+probe Ql (Unsp spec)on 04-25-2024 C. trachomatis rRNA DADA+probe Ql (Unsp spec) Negative Negative for Chlamydia trachomatis by [facility] Interpretation and review of laboratory results Normal [facility] N. gonorrhoeae rRNA DADA+probe Ql (Unsp spec) Negative Negative for Neisseria gonorrhoeae by amplification [facility] For screening asymptomatic women, a vaginal swab specimen(APTIMA vaginal swab [id number]) is optimal. Urine specimens have reduced sensitivity for Chlamydia trachomatis or Neisseria gonorrhoeae infection in female patients without symptoms. [facility] C. trachomatis+N. gonorrhoea e DNA DADA+probe Ql (Unsp spec)on 04-24-2024 C. trachomatis rRNA DADA+probe Ql (Unsp spec) Negative Normal Negative for Chlamydia trachomatis by amplificaton [facility] Comment on above: Order Comment: Speci men Type: URINE SPECIMENOrdering Facility: [facility] Address: [address] [place] [address] Performed By: #### 3 6902-5 ####[facility] LABIA [id number] [place] [address] [place] N. gonorrhoeae rRNA DADA+probe Ql (Unsp spec) Negative Normal Negative for Neisseria gonorrhoeae by amplification [facility] Comment on above: Order Comment: Speci men Type: URINE SPECIMENOrdering Facility: [facility] Address: [address] [place] [address] Performed By: #### 3 6902-5 ####[facility] LABIA [id number] [place] [address] [place] CBC panel Auto (Bld)on 04-24 Erythrocyte distribution width (RBC) [Ratio] 12.2 % 11.5 - 15.0 % [facility] Hematocrit (Bld) [Volume fraction] 39.7 % 36.0 - 46.0 % [facility] Hemoglobin (Bld) [Mass/Vol] 12.8 g/dL 11.5 - 15.5 g/dL [facility] Interpretation and review of laboratory results Normal [facility] MCH (RBC) [Entitic mass] 30.4 pg 26.0 - 34.0 pg [facility] MCHC (RBC) [Mass/Vol] 32.2 g/dL 30.5 - 36.0 g/dL [facility] MCV (RBC) [Entitic vol] 94.3 fL 80.0 - 100.0 fL [facility] Nucleated RBC (Bld) [#/Vol] NINF [facility] Platelet mean volume (Bld) [Entitic vol] 10.6 fL 9.0 - 12.7 fL [facility] Platelets (Bld) [#/Vol] 231 10*3/uL [facility] RBC (Bld) [#/Vol] 4.21 10*6/uL 3.90 - 5.2 0 m/uL [facility] WBC (Bld) [#/Vol] 8.92 10*3/uL [facility] Erythrocyte distribution width (RBC) [Ratio] 12.2 % Normal 11.5-15.0 [facility] Comment on above: Order Comment: Speci men Type: BLOOD SPECIMEN [facility] Address: [address] [place] [address] Performed By: #### T SPN #### CC MAIN BLOOD BANK CLIA [id number] [address] [place] [address] [place] Hematocrit (Bld) [Volume fraction] 39.7 % Normal 36.0-46.0 [facility] Comment on above: Order Comment: Speci men Type: BLOOD SPECIMEN [facility] Address: [address] [place] [address] Performed By: #### T SPN #### CC MAIN BLOOD BANK CLIA [id number] [address] [place] [address] [place] Hemoglobin (Bld) [Mass/Vol] 12.8 g/dL Normal 11.5-15.5 [facility] Comment on above: Order Comment: Speci men Type: BLOOD SPECIMEN [facility] Address: [address] [place] [address] Performed By: #### T SPN #### CC MAIN BLOOD BANK CLIA [id number] [address] [place] [address] [place] MCH (RBC) [Entitic mass] 30.4 pg Normal 26.0-34.0 [facility] Comment on above: Order Comment: Speci men Type: BLOOD SPECIMEN [facility] Address: [address] [place] [address] Performed By: #### T SPN #### CC MAIN BLOOD BANK CLIA [id number] [address] [place] [address] [place] MCHC (RBC) [Mass/Vol] 32.2 g/dL Normal 30.5-36.0 [facility] Comment on above: Order Comment: Speci men Type: BLOOD SPECIMEN [facility] Address: [address] [place] [address] Performed By: #### T SPN #### CC MAIN BLOOD BANK CLIA [id number] [address] [place] [address] [place] MCV (RBC) [Entitic vol] 94.3 fL Normal 80.0-100.0 [facility] Comment on above: Order Comment: Speci men Type: BLOOD SPECIMEN [facility] Address: [address] [place] [address] Performed By: #### T SPN #### CC MAIN BLOOD BANK CLIA [id number] [address] [place] [address] [place] Nucleated RBC (Bld) [#/Vol] 10*3/uL Normal <0.01 [facility] Comment on above: Order Comment: Speci men Type: BLOOD SPECIMEN [facility] Address: [address] [place] [address] Performed By: #### T SPN #### CC MAIN BLOOD BANK CLIA [id number] [address] [place] [address] [place] Platelet mean volume (Bld) [Entitic vol] 10.6 fL Normal 9.0-12.7 [facility] Comment on above: Order Comment: Speci men Type: BLOOD SPECIMEN [facility] Address: [address] [place] [address] Performed By: #### T SPN #### CC MAIN BLOOD BANK CLIA [id number] [address] [place] [address] [place] Platelets (Bld) [#/Vol] 231 10*3/uL Normal 150-400 [facility] Comment on above: Order Comment: Speci men Type: BLOOD SPECIMEN [facility] Address: [address] [place] [address] Performed By: #### T SPN #### CC MAIN BLOOD BANK CLIA [id number] [address] [place] [address] [place] RBC (Bld) [#/Vol] 4.21 10*6/uL Normal 3.90-5.20 [facility] Comment on above: Order Comment: Speci men Type: BLOOD SPECIMEN [facility] Address: [address] [place] [address] Performed By: #### T SPN #### CC MAIN BLOOD BANK CLIA [id number] [address] [place] [address] [place] WBC (Bld) [#/Vol] 8.92 10*3/uL Normal 3.70-11.00 [facility] Comment on above: Order Comment: Speci men Type: BLOOD SPECIMEN [facility] Address: [address] [place] [address] Performed By: #### T SPN #### CC MAIN BLOOD BANK CLIA [id number] [address] [place] [address] [place] HBV surface Ag Ql (S)on Interpretation and review of laboratory results Normal [facility] HBV surface Ag Ser Qlon HBV surface Ag Ql (S) Negative Normal Negative [facility] Comment on above: Order Comment: Rosmeryi men Type: BLOOD SPECIMEN [facility] Address: [address] [place] [address] Performed By: #### T SPN #### CC MAIN BLOOD BANK CLIA [id number] [address] [place] [address] [place] HCV Ab Ql (S)on 04-24-2024 Interpretation and review of laboratory results Normal [facility] HCV Ab Ser Qlon 04-24-2024 HCV Ab Ql (S) Negative Normal Negative [facility] Comment on above: Order Comment: Rosmeryi men Type: BLOOD SPECIMENOrdering Facility: [facility] Address: [address] [place] [address] Result Comment: The result suggests no evidence of active infection with Hepatitis C virus. Should recent infection be suspected, repeat testing may be considered 4-6 weeks after this draw. Performed By: #### 1 6128-1 ####[facility] LABCLIA [id number] [place] [address] [place] HEPATITIS B SURFACE ANTIGENo n 04-24-2024 HBV surface Ag Ql (S) Negative Negative [facility] HEPATITIS C ANTIBODY IA WITH CONFIRMATIONon 04-24-2024 HCV Ab Ql (S) Negative Negative [facility] Comment on above: The result suggests no evidence of active infection with Hepatitis C virus. Should recent infection be suspected, repeat testing may be considered 4-6 weeks after this draw. HIV 1+2 Ab IA Qlon 4 HIV 1 and 2 Ab IA.rapid Nom (S/P/Bld) [facility] Comment on above: Test not indicated. HIV 1+2 Ab+HIV1 p24 Ag IA Ql Non-Reactive Nonreactive [facility] HIV immunoassay testing algorithm interpretation (S/P/Bld) [Interp] [facility] Comment on above: No evidence of HIV-1 or HIV-2 infection. Should recent infection be suspected, repeat testing may be considered 2-3 weeks after this draw. [place] Rev. Code 3701.243(E): This information has been disclosed to you from confidential records protected from disclosure by state law. You shall make no further disclosure of this information without the specific, written, and informed release of the individual to whom it pertains or as otherwise permitted by state law. A general authorization for the release of medical or other information is not sufficient for the purpose of the release of HIV test results or diagnoses. [facility] HIV 1 and 2 Ab IA.rapid Nom (S/P/Bld) Normal [facility] Comment on above: Order Comment: Speci men Type: BLOOD SPECIMEN [facility] Address: [address] [place] [address] Result Comment: Test not indicated. Performed By: #### T SPN #### CC MAIN BLOOD BANK CLIA [id number] [address] [place] [address] [facility] HIV 1+2 Ab+HIV1 p24 Ag IA Ql Non-Reactive Normal Nonreactive [facility] Comment on above: Order Comment: Speci men Type: BLOOD SPECIMEN [facility] Address: [address] [place], [place] [id number] Performed By: #### T SPN #### CC MAIN BLOOD BANK [facility] [id number] [address] [place] [address] [place] HIV immunoassay testing algorithm interpretation (S/P/Bld) [Interp] Normal [facility] Comment on above: Order Comment: Speci men Type: BLOOD SPECIMEN [facility] Address: [address] [place] [address] Result Comment: No e vidence of HIV-1 or HIV-2 infection. Should recent infection be suspected, repeat testing may be considered 2-3 weeks after this draw. [place] Rev. Code 3701.243(E): This information has been disclosed to you from confidential records protected from disclosure by state law. ???You shall make no further disclosure of this information without the specific, written, and informed release of the individual to whom it pertains or as otherwise permitted by state law. A general authorization for the release of medical or other information is not sufficient for the purpose of the release of HIV test results or diagnoses. Performed By: #### T SPN #### CC MAIN BLOOD BANK [facility] [id number] [address] [place] [address] [place] HbA1c (Bld)on 04-24-2024 Average glucose Estimated from glycated hemoglobin (Bld) [Mass/Vol] 97 mg/dL [facility] Comment on above: eAG: (Estimated aver age glucose) is a calculated value from HgbA1c and is delivery representative of the average blood glucose level in the last 2-3 month period. HbA1c (Bld) [Mass fraction] 5.0 % 4.3 - 5.6 % [facility] Comment on above: [place] Diabetes As sociation guidelines indicate that patients with HgbA1c in the range 5.7-6.4% are at increased risk for development of diabetes, and intervention by lifestyle modification may be beneficial. HgbA1c greater or equal to 6.5% is considered diagnostic of diabetes. [facility] Average glucose Estimated from glycated hemoglobin (Bld) [Mass/Vol] 97 mg/dL Normal [facility] Comment on above: Order Comment: Speci men Type: BLOOD SPECIMEN [facility] Address: [address] [place] [address] Result Comment: eAG: (Estimated average glucose) is a calculated value from HgbA1c and is delivery representative of the average blood glucose level in the last 2-3 month period. Performed By: #### T SPN #### CC MAIN BLOOD BANK CLIA [id number] [address] [place] [address] [place] HbA1c (Bld) [Mass fraction] 5.0 % Normal 4.3-5.6 [facility] Comment on above: Order Comment: Speci men Type: BLOOD SPECIMEN [facility] Address: [address] [place] [address] Result Comment: [place] Diabetes Association guidelines indicate that patients with HgbA1c in the range 5.7-6.4% are at increased risk for development of diabetes, and intervention by lifestyle modification may be beneficial. HgbA1c greater or equal to 6.5% is considered diagnostic of diabetes. Performed By: #### T SPN #### CC MAIN BLOOD BANK CLIA [id number] [address] [place] [address] [place] [id number] PLUSon 04-24-2024 Cell-free DNA./Cell-free DNA.total Dosage of chromosome-specific cfDNA (cfDNA) [Molar fraction] 11% Normal [facility] Comment on above: Order Comment: Speci men Type: BLOOD SPECIMEN [facility] Address: [address] [place] [address] Performed By: #### T SPN #### CC MAIN BLOOD BANK CLIA [id number] [address] [place] [address] [place] Chr 13+18+21+X+Y aneuploidy Dosage of chromosome-specific cfDNA Ql (cfDNA) Negative Normal [facility] Comment on above: Order Comment: Speci men Type: BLOOD SPECIMEN [facility] Address: [address] [place] [address] Performed By: #### T SPN #### CC MAIN BLOOD BANK CLIA [id number] [address] [place] Chr 21 trisomy Dosage of chromosome-specific cfDNA Ql (cfDNA) Negative Normal [facility] Comment on above: Order Comment: Speci men Type: BLOOD SPECIMEN [facility] Address: [address] [place] [address] Performed By: #### T SPN #### CC MAIN BLOOD BANK CLIA [id number] [address] [place] [address] [place] Chr X and Y aneuploidy risk Sequencing Ql (cfDNA) [Interp] Not detected Normal [facility] Comment on above: Order Comment: Speci men Type: BLOOD SPECIMEN Ordering Facility: [facility] Address: [address] [place] [address] Result Comment: Not Detected Not Detected Performed By: #### T SPN #### [facility] CLIA [id number] [address] [place] [address] STATES OF [place] Citation Kristopher (Reference lab test) Comment Normal [facility] Comment on above: Order Comment: Speci men Type: BLOOD SPECIMEN Ordering Facility: [facility] Address: [address] [place] [address] Result Comment: 1. P isi SCOTT, et al. Fernanda Med. 2012;14(3):296-305. 2. Trina CASTRO et al. Prenat Diag. 2013;33(6):591-597. 3. Jase C, et al. Clin Chem. 2015 Apr;61(4):608-616. 4. Louis SCOTT et al. Fernanda Med. 2011;13(11):913-920. 5. ACOG/[facility] Practice Bulletin No. 226, Jul 2020. Performed By: #### T SPN #### [facility] CLIA [id number] [address] [place] [address] OF OLU Gestational age Estimated from conception date Sood Normal [facility] Comment on above: Order Comment: Speci men Type: BLOOD SPECIMEN Ordering Facility: [facility] Address: [address] [place] [address] Performed By: #### T SPN #### [facility] CLIA [id number] [address] [place] [address] STATES OF O[place] GESTATIONALAGE AGE > OR = 9W Yes Normal [facility] Comment on above: Order Comment: Rosmeryi meenakshi Type: BLOOD SPECIMEN Ordering Facility: [facility] Address: [address] [place] [address] Performed By: #### T SPN #### [facility] CLIA [id number] [address] [place] [address] [facility] Laboratory comment Kristopher (Report) Comment Normal [facility] Comment on above: Order Comment: Rosmeryi meenakshi Type: BLOOD SPECIMEN Ordering Facility: [facility] Address: [address] [place] [address] Result Comment: The MaterniT(R) 21 PLUS laboratory-developed test (LDT) analyzes circulating cell-free DNA from a maternal blood sample. This test is used for screening purposes and not diagnostic. Clinical correlation is recommended. Validation data on twin pregnancies is limited and the ability of this test to detect aneuploidy in higher multiple gestations has not yet been validated. Performed By: #### T SPN #### [facility] CLIA [id number] [address] [place] [address] director of spa and guest experience name Nom (Provider) Comment Normal [facility] Comment on above: Order Comment: Rosmeryi meenakshi Type: BLOOD SPECIMEN Ordering Facility: [facility] Address: [address] [place] [address] Result Comment: This specimen showed an expected representation of chromosome 21, 18 and 13 material. Clinical correlation is suggested. Comment Mau Howard MD, PhD, Director, [facility] Performed By: #### T SPN #### [facility] CLIA [id number] [address] [place] [address] LIMITATIONS OF THE TEST Comment Normal [facility] Comment on above: Order Comment: Rosmeryi meenakshi Type: BLOOD SPECIMEN Ordering Facility: [facility] Address: [address] [place] [address] Result Comment: Judith gaviria the results of these tests are highly reliable, discordant results, including inaccurate sex prediction, may occur due to placental, maternal, or mosaicism or neoplasm; vanishing twin; prior maternal organ transplant; or other causes. These tests are screening tests and not diagnostic; they do not replace the accuracy and precision of diagnosis with CVS or amniocentesis. A patient with a positive test result should be referred for genetic counseling and offered invasive diagnosis for confirmation of test results.[5] The results of this testing, including the benefits and limitations, should be discussed with a qualified healthcare provider. management decisions, including termination of the , should not be based on the results of these tests alone. The healthcare provider is responsible for the use of this information in the management of their patient. Sex chromosomal aneuploidies are not reportable for known multiple gestations. A negative result does not ensure an unaffected nor does it exclude the possibility of other chromosomal abnormalities or defects which are not a part of these tests. An uninformative result may be reported, the causes of which may include, but are not limited to, insufficient sequencing coverage, noise or artifacts in the region, amplification or sequencing bias, or insufficient fraction. These tests are not intended to identify pregnancies at risk for neural tube defects or ventral wall defects. Testing for whole chromosome abnormalities (including sex chromosomes) and for subchromosomal abnormalities could lead to the potential discovery of both and maternal genomic abnormalities that could have major, minor, or no, clinical significance. Evaluating the significance of a positive or a non-reportable result may involve both invasive testing and additional studies on the mother. Such investigations may lead to a diagnosis of maternal chromosomal or subchromosomal abnormalities, which on occasion may be associated with benign or malignant maternal neoplasms. These tests may not accurately identify triploidy, balanced rearrangements, or the precise location of subchromosomal duplications or deletions; these may be detected by diagnosis with CVS or amniocentesis. The ability to report results may be impacted by maternal BMI, maternal weight, maternal systemic lupus erythematosus (SLE) and/or by certain pharmaceutical agents such as low molecular weight heparin (for example: Lovenox(R), Xaparin(R), Clexane(R) and Fragmin(R)). Performed By: #### T SPN #### [facility] CLIA [id number] [address] [place] [address] STATES OF [place] Monosomy X risk Dosage of chromosome-specific cfDNA Ql (Plasma cell-free+WBC DNA) [Interp] Not detected Normal [facility] Comment on above: Order Comment: Speci men Type: BLOOD SPECIMEN Ordering Facility: [facility] Address: [address] [place] [address] Performed By: #### T SPN #### [facility] CLIA [id number] [address] [place] [address] [place] NEGATIVE PREDICTIVE VALUE Note Normal [facility] Comment on above: Order Comment: Speci men Type: BLOOD SPECIMEN Ordering Facility: [facility] Address: [address] [place] [address] Result Comment: The Negative Predictive Value (NPV) for trisomy 21, 18, and 13 is greater than 99%. The NPV for SCA and ESS cannot be calculated as SCA and ESS are only reported when an abnormality is detected. Performed By: #### T SPN #### [facility] CLIA [id number] [address] [place] [address] STATES OF [place] NOTE Comment Normal [facility] Comment on above: Order Comment: Speci men Type: BLOOD SPECIMEN Ordering Facility: [facility] Address: [address] [place] [address] Result Comment: See Notes [employer] is a subsidiary of [employer], using the brand [employer]. This test was developed and its performance characteristics determined by [employer]. It has not been cleared or approved by the Food and Drug Administration. This laboratory is certified under the Clinical Laboratory Improvement Amendments (CLIA) as qualified to perform high complexity clinical laboratory testing and accredited by the [employer] (CAP). If there is future clinical need for adding MaterniT GENOME testing, this specimen will be available until term. [facility] samples will not be retained beyond 60 days. [facility] patients will have to send a new sample for re-sequencing ([facility] Test Code: 913101). Performed By: #### T SPN #### [facility] CLIA [id number] [address] [facility] [id number] [address] [place] OF [place] PERFORMANCE CHARACTERISTICS Note Normal [facility] Comment on above: Order Comment: Chao arrieta Type: BLOOD SPECIMEN Ordering Facility: [facility] Address: [address] [place] [address] Result Comment: ! Sex ! Accuracy: 99.4% ! ! ! ! Region (associated syndrome) ! Est. Sens# ! Est. Spec ! ! ! ! Trisomy 21 (Down Syndrome) ! 99.1% ! 99.9% ! ! ! ! Trisomy 18 (Mcmillan Syndrome) ! >99.9% ! 99.6% ! ! ! ! Trisomy 13 (Patau Syndrome) ! 91.7% ! 99.7% ! ! ! ! Sex Chromosome Aneuploidies## ! 96.2% ! 99.7% ! ! ! * As reported in [facility] database nstd37 [https://www.ncbi.nlm.nih.gov/dbvar/studies/nstd37/ ] # Estimated Sensitivity. Sensitivity estimated across the observed size distribution of each syndrome [per [employer] database nstd37] and across the range of fractions observed in routine clinical NIPT. Actual sensitivity can also be influenced by other factors such as the size of the event, total sequence counts, amplification bias, or sequence bias. ## Sood gestation only. Performed By: #### T SPN #### [facility] CLIA [id number] [address] [place] [address] STATES [facility] POSITIVE PREDICTIVE VALUE N/A Normal [facility] Comment on above: Order Comment: Speci men Type: BLOOD SPECIMEN Ordering Facility: [facility] Address: [address] [place] [address] Performed By: #### T SPN #### [facility] CLIA [id number] [address] [place] [address] [place] Reference Lab Test Method Comment Normal [facility] Comment on above: Order Comment: Speci men Type: BLOOD SPECIMEN Ordering Facility: [facility] Address: [address] [place] [address] Result Comment: See Notes Circulating cell-free DNA was purified from the plasma component of maternal blood. The extracted DNA was then converted into a genomic DNA library for aneuploidy analysis of chromosomes 21, 18, and 13 via next generation sequencing.[1] Optional findings based on the test order include sex chromosome aneuploidy (SCA)[2], and enhanced sequencing series (ESS)[3], which will only be reported on as an additional finding when an abnormality is detected. SCA testing includes information on X and Y representation, while ESS testing includes deletions in selected regions (22q, 15q, 11q, 8q, 5p, 4p, 1p) and trisomy of chromosomes 16 and 22. Performed By: #### T SPN #### [facility] CLIA [id number] [address] [place] [address] [place] Sex Dosage of chromosome-specific cfDNA Nom (cfDNA) Comment Normal [facility] Comment on above: Order Comment: Speci men Type: BLOOD SPECIMEN Ordering Facility: [facility] Address: [address] [place] [address] Result Comment: Cons istent with Female Performed By: #### T SPN #### [facility] CLIA [id number] [address] [place] [address] OF [place] Test performance information Kristopher (Unsp spec) Comment Normal [facility] Comment on above: Order Comment: Speci men Type: BLOOD SPECIMEN Ordering Facility: [facility] Address: [address] [place] [address] Result Comment: The performance characteristics of the MaterniT(R) 21 PLUS laboratory-developed test (LDT) have been determined in a clinical validation study with women at increased risk for chromosomal aneuploidy.[1-4] Performed By: #### T SPN #### [facility] CLIA [id number] [address] [place] [address] STATES [place] Trisomy 13 risk Dosage of chromosome-specific cfDNA Ql (cfDNA) [Interp] Negative Normal [facility] Comment on above: Order Comment: Speci men Type: BLOOD SPECIMEN Ordering Facility: [facility] Address: [address] [place] [address] Performed By: #### T SPN #### [facility] CLIA [id number] [address] [place] [address] [place] Trisomy 18 risk Dosage of chromosome-specific cfDNA Ql (Plasma cell-free+WBC DNA) [Interp] Negative Normal [facility] Comment on above: Order Comment: Speci men Type: BLOOD SPECIMEN Ordering Facility: [facility] Address: [address] [place] [address] Performed By: #### T SPN #### [facility] CLIA [id number] [address] [place] [address] [place] RUBELLA IGG ANTIBODYon 04-24 Interpretation and review of laboratory results Normal [facility] Rubella IgG, Qual Positive Positive [facility] Comment on above: The result suggests recent or past exposure to Rubella virus or history of Rubella vaccination. Positive result may also be seen due to presence of passively-transferred antibodies. Please correlate with patient's history. [facility] RUBELLA IGG AB, QUAL Positive Normal Positive [facility] Comment on above: Order Comment: Speci men Type: BLOOD SPECIMEN Ordering Facility: [facility] Address: [address] [place] [address] Result Comment: The result suggests recent or past exposure to Rubella virus or history of Rubella vaccination. Positive result may also be seen due to presence of passively-transferred antibodies. Please correlate with patient's history. Performed By: #### R UBIGG #### [facility] CLIA [id number] [address] [place] [address] [place] Reagin and Treponema pallidu m IgG and IgM [Interp]on 04-24-2024 T. pallidum IgG+IgM [place] Ql (S) Non-Reactive Nonreactive [facility] T. pallidum IgG+IgM [place] Ql (S) Non-Reactive Normal Nonreactive [facility] Comment on above: Order Comment: Speci men Type: BLOOD SPECIMEN Ordering Facility: [facility] Address: [address] [place] [address] Performed By: #### T SPN #### [facility] CLIA [id number] [address] [place] [address] [place] Reagin+T pallidum IgG+IgM Se rPl-Impon 04-24-2024 Reagin and Treponema pallidum IgG and IgM [Interp] Cannot exclude recent Treponemal infection if specimen collected within 7-10 days after appearance of suspect lesions or 2-3 weeks after an exposure. Clinical correlation is required. Normal [facility] Comment on above: Order Comment: Speci men Type: BLOOD SPECIMEN Ordering Facility: [facility] Address: [address] [place] [address] Performed By: #### T SPN #### [facility] CLIA [id number] [address] [place] [address] [place] SYPHILIS TOTAL W/REFLEXon Reagin and Treponema pallidum IgG and IgM [Interp] Cannot exclude recent Treponemal infection if specimen collected within 7-10 days after appearance of suspect lesions or 2-3 weeks after an exposure. Clinical correlation is required. [facility] TYPE + SCREEN PRENATALon ABO group Nom (Bld) A [facility] Blood group antibody screen Ql Negative [facility] HIstorical Ab Scr Status Negative [facility] Rh Nom (Bld) Positive [facility] Type and Screen Expiration 04/27/2024 23:59 [facility] ABO A Normal [facility] Comment on above: Order Comment: Speci men Type: BLOOD SPECIMEN Ordering Facility: [facility] Address: [address] [place] [address] Performed By: #### T SPN #### [facility] CLIA [id number] [address] [place] [address] [place] HISTORICAL AB SCR STATUS Negative Normal [facility] Comment on above: Order Comment: Speci men Type: BLOOD SPECIMEN Ordering Facility: [facility] Address: [address] [place] [address] Performed By: #### T SPN #### [facility] CLIA [id number] [address] [place] [address] [place] Rh Nom (Bld) Positive Normal [facility] Comment on above: Order Comment: Speci men Type: BLOOD SPECIMEN Ordering Facility: [facility] Address: [address] [place] [address] Performed By: #### T SPN #### [facility] CLIA [id number] [address] [place] [address] [place] TYPE AND SCREEN EXPIRATION 04/27/2024 23:59 Normal [facility] Comment on above: Order Comment: Speci men Type: BLOOD SPECIMEN Ordering Facility: [facility] Address: [address] [place] [address] Performed By: #### T SPN #### [facility] CLIA [id number] [address] [facility] CNPNon 04-20-2024 CNPN Telephone (OBGYF2) AGUSTINA PIMENTEL ([id number]) 4 F DEF Date Time Provider Department 04/20/24 [facility] OB [facility] OBGYF2 During your visit today, we recorded the following information about you: Saskia Marin RN 04/20/2024 4:38 PM Signed Pt called, identified by name and . Pt is transferring care from [place] (has OB appt at [facility] April 24) . Requesting to see MFM as well. Records in Care Everywhere. H/o aortic root dilation, CKD, neurogenic bladder, RTA (renal tubular acidosis). Managed by car washer and erp business analyst in [place]. (Sarai Mei and [place]). Current medications: folic acid and antibiotic for a UTI. Will message care nurses for advice for scheduling (cardiac OB vs standard MFM consult) and then call pt back with appointments. Verbalizes understanding and agreement, no questions/concerns at this time. Saskia Marin RN Allergies As of Date: 04/20/2024 (No Known Allergies) Date Reviewed: 04/18/2024 Reviewed by: Marvin Choi APRN.[employer] - Fully Assessed Prescriptions as of 04/20/2024 - cephALEXin (KEFLEX) 500 mg capsule Take 1 capsule by mouth four times daily for 10 days. Problem List As Of Date: 04/20/2024 (None) Encounter Status:Closed by SASKIA MARIN on 04/20/24 Normal [facility] Donovan 04-18-2024 CNPN Telephone (OBGWST) AGUSTINA PIMENTEL ([id number]) 4 F DEF Date Time Provider Department 04/18/24 LULÚ WILLS OBGWST During your visit today, we recorded the following information about you: Rudolph Lorenzo RN 04/18/2024 11:23 AM Signed Call placed to patient to triage for ED follow up. 10W1D per US today in ED Name and identified. 1st PNV? yes Pelvic pain? Mild cramping Vaginal bleeding? no Nausea? no Vomiting? no Any medical history that can effect the ? 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 Advised pt to notify her urologist at [facility] of Advised pt of [employer]hart message sent by [facility] RN to reschedule her 04/20 appt. Office/provider patient wishes to establish care to? [facility] Patient aware to sign up for My Chart if she does not already have it, so she can receive the behavioral health care coordinator messages. Will forward this encounter to the schedulers in this office. Rudolph Calle RN RN 04/20/2024 3:27 PM Signed Patient has appt - closing encounter. Rudolph Lorenzo RN Allergies As of Date: 04/18/2024 (No Known Allergies) Date Reviewed: 04/18/2024 Reviewed by: Marvin Choi APRN.[employer] - Fully Assessed Reason for Visit: PEAC [4090] Care Coordination [2011] Prescriptions as of 04/20/2024 - cephALEXin (KEFLEX) 500 mg capsule Take 1 capsule by mouth four times daily for 10 days. Problem List As Of Date: 04/18/2024 (None) Encounter Status:Closed by LULÚ WILLS on 04/18/24 [facility] ED NOTEon 04-18-2024 ED NOTE HNO ID: [id number] Author: SONAM CHEN RN Service: ? Author Type: Registered Nurse Type: ED Notes Filed: 04/18/2024 04:06 Note Text: .Pt given discharge instructions at bedside. Pt verbalized understanding of instructions. Reviewed follow up appointments and VS were stable upon leaving. Pt ambulated with steady gait by self off unit. [facility] ED PROV NOTEon 04-18-2024 ED PROV NOTE HNO ID: [id number] Author: MARVIN CHOI APRN.SAM Service: Emergency Medicine Author Type: Nurse Practitioner Type: ED Provider Notes Filed: 04/18/2024 04:26 Note Text: ED Provider Note Patient Name: Agustina Pimentel : 2000 SERVICE DATE: 04/17/24 History Patient presents with: Abdominal Pain 23-year-old female presents emergency department with lower abdominal cramping. She states she went to have a bowel movement approximately 2030 and felt a passage of which she described as a glob. Denies any vaginal bleeding. She is G1, P0 and believes to be approximately 10 weeks. She is taking vitamins but has not yet sought care. Denies any urinary complaints. No fever or chills. No chest pain or shortness of breath. History provided by: Patient and medical records varnisher used: No History reviewed. No pertinent past medical history. History reviewed. No pertinent surgical history. No family history on file. Social History Tobacco Use Smoking status: Not on file Smokeless tobacco: Not on file Substance and Sexual Activity Alcohol use: Not on file Drug use: Not on file Sexual activity: Not on file ALLERGIES No Known Allergies Review of Systems Constitutional: Negative for chills and fever. Respiratory: Negative for chest tightness and shortness of breath. Gastrointestinal: Positive for abdominal pain. Negative for constipation, diarrhea, nausea and vomiting. Genitourinary: Negative for difficulty urinating, dysuria and hematuria. Physical Exam Vitals BP Pulse Temp Temp src Resp SpO2 Weight Height 04/17/24213704/17/24213704/17/24213704/17/24213704/17/24213704/17/24213704/17/24 2337 -- 137/90 (!) 97 36.9 ?C (98.4 ?F) Temporal 18 100 % 45.6 kg (100 lb 8 oz) Physical Exam Constitutional: General: She is not in acute distress. Appearance: She is well-developed. She is not ill-appearing, toxic-appearing or diaphoretic. Cardiovascular: Rate and Rhythm: Normal rate and regular rhythm. Heart sounds: Normal heart sounds. Pulmonary: Effort: Pulmonary effort is normal. No respiratory distress. Breath sounds: Normal breath sounds. No stridor. No wheezing, rhonchi or rales. Chest: Chest wall: No tenderness. Abdominal: General: Bowel sounds are normal. Palpations: Abdomen is soft. Tenderness: There is abdominal tenderness in the suprapubic area. There is no right CVA tenderness, left CVA tenderness, guarding or rebound. Skin: General: Skin is warm and dry. Neurological: Mental Status: She is alert. Diagnostic Testing ED Labs Ordered and Reviewed COMPLETE BLOOD COUNT AND DIFFERENTIAL - Abnormal; Notable for the following components: Result Value Ref Range WBC 11.09 (*) 3.70 - 11.00 k/uL Abs Neut 8.71 (*) 1.45 - 7.50 k/uL All other components within normal limits URINALYSIS, REFLEX MICROSCOPIC - Abnormal; Notable for the following components: Protein, Urine 1+ (*) Trace, Negative Leuk Esterase 500 Mary/uL (*) Negative, 25 Mary/uL WBC, Urine >25 /HPF (*) 0-5 /HPF RBC, Urine 11-25 /HPF (*) 0-3 /HPF Bacteria Rare (*) None Seen /HPF All other components within normal limits HCG QUANTITATIVE - Abnormal; Notable for the following components: hCG Quantitative, Blood 138,739.0 (*) <5.0 mIU/mL All other components within normal limits COMPREHENSIVE METABOLIC PANEL - Normal Procedures ED Course / Clinical Impression Clinical Impressions as of 04/18/24 0426 10 weeks gestation of Abdominal cramping Acute cystitis with hematuria MDM / Disposition / Plan MDM: Vital signs reviewed. Triage records were reviewed. Medical records were reviewed. Nursing notes were reviewed and incorporated. HPI- 23-year-old female presents emergency department with lower abdominal cramping. PE significant for: Abdominal cramping DDX - Differentials including but not limited to UTI, miscarriage, pyelonephritis, nephrolithiasis Labs: UA-positive leuk esterase, WBC, RBC, rare bacteria CBC-WBC 11.09, HANDH stable CMP-WNL HCG- [id number] Radiology: Pelvic ultrasound- IMPRESSION: Single intrauterine with estimated gestational age of 10 weeks and 1 day by crown-rump length. cardiac motion is demonstrated with measured heart rate of 170-174 bpm. Unremarkable RIGHT ovary. LEFT ovary not visualized. Meds given in ED: Keflex Patient seen and evaluated emergency department. She describes a story where she had some abdominal cramping and then noted a glob come out of her vagina. Is very vague when asked for a description. She denies any vaginal bleeding. She was concerned for a miscarriage. She believes herself to be 10 weeks but is unsure of her last menstrual period. She is G1, P0. Has not sought care at this time but has started taking vitamins. She denies any urinary complaints but did obtain lab work which showed (more content not included)... Normal [facility] US PREG TRANSABD <14 WKS LTD on 04-18-2024 US PREG TRANSABD <14 WKS LTD * * *Final Report* * * DATE OF EXAM: Apr 18 2024 1:23AM U 1035 - US PREG TRANSABD <14 WKS LTD / PROCEDURE REASON: Pelvic pain, positive beta-HCG, survey superintendent etiology suspected * * * * Physician Interpretation * * * * EXAMINATION: FIRST TRIMESTER TRANSVAGINAL AND TRANSABDOMINAL PELVIC ULTRASOUND CLINICAL HISTORY: , pelvic pain, concern for miscarriage TECHNIQUE: Sonography of the pelvis was performed by transabdominal and transvaginal techniques. Images were obtained and stored in a permanent archive. MQ: USOB1_1 COMPARISON: None. RESULT: Uterus: - Size: 11.3 x 6.2 x 7.8 cm - Myometrium: homogeneous echogenicity - Cervix: 3.2cm, closed with no funneling Gestation: - Intrauterine gestational sac: Single present - Mean Sac Diameter: 4.5 cm, corresponding gestational age 10 week 0 days - Yolk sac: Present - Embryo: Single present - [place] rump length: 3.3 cm, corresponding gestational age 10 weeks, 1 days -Gestational heart rate: present 170-174 bpm -Subgestational hematoma: None Right ovary: - Size : 4.2 x 1.8 x 1.6 cm - Normal sonographic appearance with physiologic follicles. Normal arterial and venous Doppler waveforms are present. Left ovary: Nonvisualized Pelvis free fluid: None. IMPRESSION: Single intrauterine with estimated gestational age of 10 weeks and 1 day by crown-rump length. cardiac motion is demonstrated with measured heart rate of 170-174 bpm. Unremarkable RIGHT ovary. LEFT ovary not visualized. Pharmacist'S Aide: Skweez Transcribe Date/Time: Apr 18 2024 3:18A Dictated by : JOHN DAUGHERTY MD This examination was interpreted and the report reviewed and electronically signed by: JOHN DAUGHERTY MD on Apr 18 2024 3:28AM EST [id number] Normal [facility] US PREG TRANSVAG <14 WEEKSon 04-18-2024 US PREG TRANSVAG <14 WEEKS * * *Final Report* * * DATE OF EXAM: Apr 18 2024 1:23AM [facility] 1034 - US PREG TRANSVAG <14 WEEKS / PROCEDURE REASON: Pelvic pain, positive beta-HCG, survey superintendent etiology suspected * * * * Physician Interpretation * * * * EXAMINATION: FIRST TRIMESTER TRANSVAGINAL AND TRANSABDOMINAL PELVIC ULTRASOUND CLINICAL HISTORY: , pelvic pain, concern for miscarriage TECHNIQUE: Sonography of the pelvis was performed by transabdominal and transvaginal techniques. Images were obtained and stored in a permanent archive. MQ: USOB1_1 COMPARISON: None. RESULT: Uterus: - Size: 11.3 x 6.2 x 7.8 cm - Myometrium: homogeneous echogenicity - Cervix: 3.2cm, closed with no funneling Gestation: - Intrauterine gestational sac: Single present - Mean Sac Diameter: 4.5 cm, corresponding gestational age 10 week 0 days - Yolk sac: Present - Embryo: Single present - [place] rump length: 3.3 cm, corresponding gestational age 10 weeks, 1 days -Gestational heart rate: present 170-174 bpm -Subgestational hematoma: None Right ovary: - Size : 4.2 x 1.8 x 1.6 cm - Normal sonographic appearance with physiologic follicles. Normal arterial and venous Doppler waveforms are present. Left ovary: Nonvisualized Pelvis free fluid: None. IMPRESSION: Single intrauterine with estimated gestational age of 10 weeks and 1 day by crown-rump length. cardiac motion is demonstrated with measured heart rate of 170-174 bpm. Unremarkable RIGHT ovary. LEFT ovary not visualized. Pharmacist'S Aide: HERI Transcribe Date/Time: Apr 18 2024 3:18A Dictated by : JOHN DAUGHERTY MD This examination was interpreted and the report reviewed and electronically signed by: JOHN DAUGHERTY MD on Apr 18 2024 3:28AM EST [id number] Normal [facility] B-HCG SerPl-aCncon 4 HCG.beta subunit Qn 320756.0 m[IU]/mL High <5.0 [facility] Comment on above: Order Comment: Speci men Type: BLOOD SPECIMEN Ordering Facility: [facility] Address: [address] [place] [address] Result Comment: ALICE TITATIVE HCG NORMAL RANGES Weeks of Gestation (Weeks Since LMP) 3 Weeks (5.8-71.2 mIU/mL) 4 Weeks (9.5-750 mIU/mL) 5 Weeks (217-7138 mIU/mL) 6 Weeks (158-77893 mIU/mL) 7 Weeks (3697-287790 mIU/mL) 8 Weeks (58806-765588 mIU/mL) 9 Weeks (99385-449362 mIU/mL) 10 Weeks (07113-685666 mIU/mL) 12 Weeks (20043-497018 mIU/mL) Referenced to 4th [facility] of [facility] Performed By: #### 2 1198-7 #### [facility] CLIA [id number] [address] [place] [address] [place] CBC W Auto Differential pane l (Bld)on 04-17-2024 Basophils (Bld) [#/Vol] 0.05 10*3/uL Normal <0.11 [facility] Comment on above: Order Comment: Speci men Type: BLOOD SPECIMEN Ordering Facility: [facility] Address: [address] [place] [address] Performed By: #### 5 7021-8 #### [facility] CLIA [id number] [address] [facility] [place] [address] [place] Basophils/100 WBC (Bld) 0.5 % Normal [facility] Comment on above: Order Comment: Speci men Type: BLOOD SPECIMEN Ordering Facility: [facility] Address: [address] [place] [address] Performed By: #### 5 7021-8 #### [facility] IA [id number] [address] [place] [address] [place] Differential cell count method Nom (Bld) Auto Normal [facility] Comment on above: Order Comment: Speci men Type: BLOOD SPECIMEN Ordering Facility: [facility] Address: [address] [place] [address] Performed By: #### 5 7021-8 #### [facility] IA [id number] [address] [place] [address] [place] Eosinophils (Bld) [#/Vol] 0.03 10*3/uL Normal <0.46 [facility] Comment on above: Order Comment: Speci men Type: BLOOD SPECIMEN Ordering Facility: [facility] Address: [address] [place] [address] Performed By: #### 5 7021-8 #### [facility] IA [id number] [address] [place] Eosinophils/100 WBC (Bld) 0.3 % Normal [facility] Comment on above: Order Comment: Speci men Type: BLOOD SPECIMEN Ordering Facility: [facility] Address: [address] [place] [address] Performed By: #### 5 7021-8 #### [facility] IA [id number] [address] [place] Erythrocyte distribution width (RBC) [Ratio] 11.9 % Normal 11.5-15.0 [facility] Comment on above: Order Comment: Speci men Type: BLOOD SPECIMEN Ordering Facility: [facility] Address: [address] [place] [address] Performed By: #### 5 7021-8 #### [facility] IA [id number] [address] [place] [address] [place] Hematocrit (Bld) [Volume fraction] 40.5 % Normal 36.0-46.0 [facility] Comment on above: Order Comment: Speci men Type: BLOOD SPECIMEN Ordering Facility: [facility] Address: [address] [place] [address] Performed By: #### 5 7021-8 #### [facility] IA [id number] [address] [place] [address] [place] Hemoglobin (Bld) [Mass/Vol] 13.4 g/dL Normal 11.5-15.5 [facility] Comment on above: Order Comment: Speci men Type: BLOOD SPECIMEN Ordering Facility: [facility] Address: [address] [place] [address] Performed By: #### 5 7021-8 #### [facility] IA [id number] [address] [place] [address] [place] Immature granulocytes (Bld) [#/Vol] 0.04 10*3/uL Normal <0.10 [facility] Comment on above: Order Comment: Speci men Type: BLOOD SPECIMEN Ordering Facility: [facility] Address: [address] [place] [address] Performed By: #### 5 7021-8 #### [facility] IA [id number] [address] [place] [id number] [place] Immature granulocytes/100 WBC (Bld) 0.4 % Normal [facility] Comment on above: Order Comment: Speci men Type: BLOOD SPECIMEN Ordering Facility: [facility] Address: [address] [place] [address] Performed By: #### 5 7021-8 #### [facility] IA [id number] [address] [place] [address] [place] Lymphocytes (Bld) [#/Vol] 1.61 10*3/uL Normal 1.00-4.00 [facility] Comment on above: Order Comment: Speci men Type: BLOOD SPECIMEN Ordering Facility: [facility] Address: [address] [place] [address] Performed By: #### 5 7021-8 #### [facility] IA [id number] [address] [place] [address] [place] Lymphocytes/100 WBC (Bld) 14.5 % Normal [facility] Comment on above: Order Comment: Speci men Type: BLOOD SPECIMEN Ordering Facility: [facility] Address: [address] [place] [address] Performed By: #### 5 7021-8 #### [facility] IA [id number] [address] [place] [address] [place] MCH (RBC) [Entitic mass] 30.7 pg Normal 26.0-34.0 [facility] Comment on above: Order Comment: Speci men Type: BLOOD SPECIMEN Ordering Facility: [facility] Address: [address] [place] [address] Performed By: #### 5 7021-8 #### [facility] IA [id number] [address] [place] [address] [place] MCHC (RBC) [Mass/Vol] 33.1 g/dL Normal 30.5-36.0 [facility] Comment on above: Order Comment: Speci men Type: BLOOD SPECIMEN Ordering Facility: [facility] Address: [address] [place] [address] Performed By: #### 5 7021-8 #### [facility] IA [id number] [address] [place] [address] [place] MCV (RBC) [Entitic vol] 92.9 fL Normal 80.0-100.0 [facility] Comment on above: Order Comment: Speci men Type: BLOOD SPECIMEN Ordering Facility: [facility] Address: [address] [place] [address] Performed By: #### 5 7021-8 #### [facility] IA [id number] [address] [place] [address] [place] Monocytes (Bld) [#/Vol] 0.65 10*3/uL Normal <0.87 [facility] Comment on above: Order Comment: Speci men Type: BLOOD SPECIMEN Ordering Facility: [facility] Address: [address] [place] [address] Performed By: #### 5 7021-8 #### [facility] CLIA [id number] [address] [facility] [place] [address] [place] Monocytes/100 WBC (Bld) 5.9 % Normal [facility] Comment on above: Order Comment: Speci men Type: BLOOD SPECIMEN Ordering Facility: [facility] Address: [address] [place] [address] Performed By: #### 5 7021-8 #### [facility] IA [id number] [address] [place] [address] [place] Neutrophils (Bld) [#/Vol] 8.71 10*3/uL High 1.45-7.50 [facility] Comment on above: Order Comment: Speci men Type: BLOOD SPECIMEN Ordering Facility: [facility] Address: [address] [place] [address] Performed By: #### 5 7021-8 #### [facility] IA [id number] [address] [place] [id number] [place] Neutrophils/100 WBC (Bld) 78.4 % Normal [facility] Comment on above: Order Comment: Speci men Type: BLOOD SPECIMEN Ordering Facility: [facility] Address: [address] [place] [address] Performed By: #### 5 7021-8 #### [facility] CLIA [id number] [address] [facility] [place] [address] [place] Nucleated RBC (Bld) [#/Vol] 10*3/uL Normal <0.01 [facility] Comment on above: Order Comment: Speci men Type: BLOOD SPECIMEN Ordering Facility: [facility] Address: [address] [place] [address] Performed By: #### 5 7021-8 #### [facility] CLIA [id number] [address] [place] [address] [place] Nucleated RBC/100 WBC (Bld) [Ratio] 0.0 /100 WBC Normal [facility] Comment on above: Order Comment: Speci men Type: BLOOD SPECIMEN Ordering Facility: [facility] Address: [address] [place] [address] Performed By: #### 5 7021-8 #### [facility] CLIA [id number] [address] [place] [address] [place] Platelet mean volume (Bld) [Entitic vol] 9.5 fL Normal 9.0-12.7 [facility] Comment on above: Order Comment: Speci men Type: BLOOD SPECIMEN Ordering Facility: [facility] Address: [address] [place] [address] Performed By: #### 5 7021-8 #### [facility] CLIA [id number] [address] [place] [address] [place] Platelets (Bld) [#/Vol] 254 10*3/uL Normal 150-400 [facility] Comment on above: Order Comment: Speci men Type: BLOOD SPECIMEN Ordering Facility: [facility] Address: [address] [place] [address] Performed By: #### 5 7021-8 #### [facility] CLIA [id number] [address] [place] [address] [place] RBC (Bld) [#/Vol] 4.36 10*6/uL Normal 3.90-5.20 [facility] Comment on above: Order Comment: Speci men Type: BLOOD SPECIMEN Ordering Facility: [facility] Address: [address] [place] [address] Performed By: #### 5 7021-8 #### [facility] CLIA [id number] [address] [place] [address] [place] WBC (Bld) [#/Vol] 11.09 10*3/uL High 3.70-11.00 [facility] Comment on above: Order Comment: Speci men Type: BLOOD SPECIMEN Ordering Facility: [facility] Address: [address] [place], [place] [address] Performed By: #### 5 7021-8 #### [facility] CLIA [id number] [address] [place] [address] [facility] [place] Comprehensive metabolic 2000 panelon 04-17-2024 Albumin [Mass/Vol] 4.2 g/dL Normal 3.9-4.9 [facility] Comment on above: Order Comment: Speci men Type: BLOOD SPECIMEN Ordering Facility: [facility] Address: [address] [place] [address] Performed By: #### 2 4323-8 #### [facility] CLIA [id number] [address] [place] [address] [place] ALP [Catalytic activity/Vol] 91 U/L Normal 34-123 [facility] Comment on above: Order Comment: Speci men Type: BLOOD SPECIMEN Ordering Facility: [facility] Address: [address] [place] [address] Performed By: #### 2 4323-8 #### [facility] IA [id number] [address] [place] [address] [place] ALT [Catalytic activity/Vol] 8 U/L Normal 7-38 [facility] Comment on above: Order Comment: Speci men Type: BLOOD SPECIMEN Ordering Facility: [facility] Address: [address] [place] [address] Performed By: #### 2 4323-8 #### [facility] IA [id number] [address] [place] [address] [place] Anion gap [Moles/Vol] 13 mmol/L Normal 8-15 [facility] Comment on above: Order Comment: Speci men Type: BLOOD SPECIMEN Ordering Facility: [facility] Address: [address] [place] [address] Performed By: #### 2 4323-8 #### [facility] CLIA [id number] [address] [place] [address] [place] AST [Catalytic activity/Vol] 15 U/L Normal 13-35 [facility] Comment on above: Order Comment: Speci men Type: BLOOD SPECIMEN Ordering Facility: [facility] Address: [address] [place] [address] Performed By: #### 2 4323-8 #### [facility] CLIA [id number] [address] [place] [address] [place] Bilirubin [Mass/Vol] 0.2 mg/dL Normal 0.2-1.3 [facility] Comment on above: Order Comment: Speci men Type: BLOOD SPECIMEN Ordering Facility: [facility] Address: [address] [place] [address] Performed By: #### 2 4323-8 #### [facility] CLIA [id number] [address] [place] [address] [place] Calcium [Mass/Vol] 9.8 mg/dL Normal 8.5-10.2 [facility] Comment on above: Order Comment: Speci men Type: BLOOD SPECIMEN Ordering Facility: [facility] Address: [address] [place] [address] Performed By: #### 2 4323-8 #### [facility] CLIA [id number] [address] [place] [address] [place] Chloride [Moles/Vol] 105 mmol/L Normal 98-107 [facility] Comment on above: Order Comment: Speci men Type: BLOOD SPECIMEN Ordering Facility: [facility] Address: [address] [place] [address] Performed By: #### 2 4323-8 #### [facility] CLIA [id number] [address] [place] [address] [place] CO2 [Moles/Vol] 23 mmol/L Normal 22-30 [facility] Comment on above: Order Comment: Speci men Type: BLOOD SPECIMEN Ordering Facility: [facility] Address: [address] [place] [address] Performed By: #### 2 4323-8 #### [facility] CLIA [id number] [address] [place] [address] [place] Creatinine [Mass/Vol] 0.94 mg/dL Normal 0.58-0.96 [facility] Comment on above: Order Comment: Chao arrieta Type: BLOOD SPECIMEN Ordering Facility: [facility] Address: [address] [place] [address] Performed By: #### 2 4323-8 #### [facility] CLIA [id number] [address] [facility] [place] [address] [place] Creatinine and Glomerular filtration rate.predicted panel (S/P/Bld) 89 mL/min/1.73m??? Normal >=60 [facility] Comment on above: Order Comment: Chao arrieta Type: BLOOD SPECIMEN Ordering Facility: [facility] Address: [address] [place] [address] Result Comment: Audra mated Glomerular Filtration Rate (eGFR) is calculated using the 2020 CKD-EPI creatinine equation. This equation utilizes serum creatinine, sex, and age as parameters. The creatinine assay has traceable calibration to isotope dilution-mass spectrometry. Refer to KDIGO guidelines for clinical interpretation. In patients with unstable renal function, e.g. those with acute kidney injury, the eGFR may not accurately reflect actual GFR. Performed By: #### 2 4323-8 #### [facility] CLIA [id number] [address] [facility] [place] [address] [place] Glucose [Mass/Vol] 80 mg/dL Normal 74-99 [facility] Comment on above: Order Comment: Chao arrieta Type: BLOOD SPECIMEN Ordering Facility: [facility] Address: [address] [place] [address] Result Comment: The [place] Diabetes Association (ADA) provides guidance for cutoff values for fasting glucose and random glucose. The ADA defines fasting as no caloric intake for at least 8 hours. Fasting plasma glucose results between 100 to 125 mg/dL indicate increased risk for diabetes (prediabetes). Fasting plasma glucose results greater than or equal to 126 mg/dL meet the criteria for diagnosis of diabetes. In the absence of unequivocal hyperglycemia, results should be confirmed by repeat testing. In a patient with classic symptoms of hyperglycemia or hyperglycemic crisis, random plasma glucose results greater than or equal to 200 mg/dL meet the criteria for diagnosis of diabetes. Reference: Standards of Medical Care in Diabetes 2016, [place] [employer] Association. Diabetes Care. 2016.39(Suppl 1). Performed By: #### 2 4323-8 #### [facility] IA [id number] [address] [place] [address] [place] Potassium [Moles/Vol] 4.8 mmol/L Normal 3.7-5.1 [facility] Comment on above: Order Comment: Speci men Type: BLOOD SPECIMEN Ordering Facility: [facility] Address: [address] [place] [address] Performed By: #### 2 4323-8 #### [facility] IA [id number] [address] [place] [address] [place] Protein [Mass/Vol] 7.1 g/dL Normal 6.3-8.0 [facility] Comment on above: Order Comment: Speci men Type: BLOOD SPECIMEN Ordering Facility: [facility] Address: [address] [place] [address] Performed By: #### 2 4323-8 #### [facility] IA [id number] [address] [place] [address] [place] Sodium [Moles/Vol] 141 mmol/L Normal 136-144 [facility] Comment on above: Order Comment: Speci men Type: BLOOD SPECIMEN Ordering Facility: [facility] Address: [address] [place] [address] Performed By: #### 2 4323-8 #### [facility] IA [id number] [address] [place] [address] [place] Urea nitrogen [Mass/Vol] 16 mg/dL Normal 7-21 [facility] Comment on above: Order Comment: Speci men Type: BLOOD SPECIMEN Ordering Facility: [facility] Address: [address] [place] [address] Performed By: #### 2 4323-8 #### [facility] IA [id number] [address] [place] [address] [facility] [place] ED NOTEon 04-17-2024 ED NOTE HNO ID: [id number] Author: YOVANA CASTORENA RN Service: Nursing Author Type: Registered Nurse Type: ED Notes Filed: 04/17/2024 21:38 Note Text: Pt states abd pain and cramping the last couple of days with vaginal discharge Normal [facility] ED Triage Noteon 04-17-2024 ED Triage Note HNO ID: [id number] Author: MIKAYLA SALAZAR MD Service: Emergency Medicine Author Type: Physician Type: ED Triage Notes Filed: 04/17/2024 21:51 Note Text: ED INTAKE NOTE Patient Name: Agustina Pimentel Service Date: 04/17/24 BRIEF HPI: This is a 23 year old female who presents to the ED with: pelvic pain 8 weeks , confirmed IUP Now with lower abd cramping and worsening vaginal discharge No bleeding No vomiting or diarrhea BRIEF EXAM: NAD Awake and Alert Non labored breathing INITIAL WORKUP AND DECISION MAKING: Orders Placed This Encounter Complete Blood Count and Differential Comprehensive Metabolic Panel Urinalysis, reflex Microscopic HCG Quantitative Provider examination performed via virtual platform with assistance from bedside clinician. SIGNATURE: Mikayla Salazar MD Normal [facility] URINALYSIS, REFLEX MICROSCOP ICon 04-17-2024 Bacteria LM.HPF (Urine sed) [#/Area] Rare Abnormal None Seen [facility] Comment on above: Order Comment: Speci men Type: URINE SPECIMEN Ordering Facility: [facility] Address: [address] [place] [address] Performed By: #### L [id number] #### [facility] CLIA [id number] [address] [place] [address] [place] Bilirubin Ql (U) Negative Normal Negative [facility] Comment on above: Order Comment: Speci men Type: URINE SPECIMEN Ordering Facility: [facility] Address: [address] [place] [address] Performed By: #### L [id number] #### [facility] CLIA [id number] [address] [place] [address] [place] Clarity (Unsp spec) Clear Normal Clear [facility] Comment on above: Order Comment: Speci men Type: URINE SPECIMEN Ordering Facility: [facility] Address: [address] [place] [address] Performed By: #### L [id number] #### [facility] CLIA [id number] [address] [place] [id number] [place] [address] [place] [facility] Color (U) Light Yellow Normal yellow [facility] Comment on above: Order Comment: Speci men Type: URINE SPECIMEN Ordering Facility: [facility] Address: [address] [place] [address] Performed By: #### L [id number] #### [facility] CLIA [id number] [address] [place] [id number] [place] [address] Glucose Test strip (U) [Mass/Vol] Negative Normal Trace, Negative [facility] Comment on above: Order Comment: Speci men Type: URINE SPECIMEN Ordering Facility: [facility] Address: [address] [place] [address] Performed By: #### L [id number] #### [facility] CLIA [id number] [address] [place] [address] Hemoglobin Ql (U) Trace Normal Negative, Trace [facility] Comment on above: Order Comment: Speci men Type: URINE SPECIMEN Ordering Facility: [facility] Address: [address] [place] [address] Performed By: #### L [id number] #### [facility] [place] [id number] [address] [place] [address] Ketones Ql (U) Negative Normal Negative, Trace [facility] Comment on above: Order Comment: Speci men Type: URINE SPECIMEN Ordering Facility: [facility] Address: [address] [place] [address] Performed By: #### L [id number] #### [facility] CLIA [id number] [address] [place] [address] [facility] Leukocyte esterase Test strip Ql (U) 500 Mary/uL Abnormal Negative, 25 Mary/uL [facility] Comment on above: Order Comment: Speci men Type: URINE SPECIMEN Ordering Facility: [facility] Address: [address] [place] [address] Performed By: #### L [id number] #### [facility] [place] [id number] [address] [place] [address] [place] Nitrite Ql (U) Negative Normal Negative [facility] Comment on above: Order Comment: Speci men Type: URINE SPECIMEN Ordering Facility: [facility] Address: [address] [place] [address] Performed By: #### L [id number] #### [facility] [place] [id number] [address] [place] [address] [place] pH (U) 6.5 [pH] Normal 5.0-8.0 [facility] Comment on above: Order Comment: Speci men Type: URINE SPECIMEN Ordering Facility: [facility] Address: [address] [place] [address] Performed By: #### L [id number] #### [facility] [place] [id number] [address] [place] [address] [place] Protein (U) [Mass/Vol] 1+ Abnormal Trace, Negative [facility] Comment on above: Order Comment: Speci men Type: URINE SPECIMEN Ordering Facility: [facility] Address: [address] [place] [address] Performed By: #### L [id number] #### [facility] [place] [id number] [address] [place] [address] [place] RBC LM.HPF (Urine sed) [#/Area] 11-25 /HPF Abnormal 0-3 /HPF [facility] Comment on above: Order Comment: Speci men Type: URINE SPECIMEN Ordering Facility: [facility] Address: [address] [place] [address] Performed By: #### L [id number] #### [facility] [place] [id number] [address] [place] [address] [place] Specific gravity (U) [Rel density] 1.016 Normal 1.005-1.030 [facility] Comment on above: Order Comment: Speci men Type: URINE SPECIMEN Ordering Facility: [facility] Address: [address] [place] [address] Performed By: #### L [id number] #### [facility] [place] [id number] [address] [place] [address] [place] Urobilinogen Ql (U) Normal Normal Normal [facility] Comment on above: Order Comment: Speci men Type: URINE SPECIMEN Ordering Facility: [facility] Address: [address] [place] [address] Performed By: #### L [id number] #### [facility] CLIA [id number] [address] WBC LM.HPF (Urine sed) [#/Area] /[HPF] Abnormal 0-5 /HPF [facility] Comment on above: Order Comment: Speci men Type: URINE SPECIMEN Ordering Facility: [facility] Address: [address] [place] [address] Performed By: #### L [id number] #### [facility] CLIA [id number] [facility] [place] [address] [facility] CNPNon 04-16-2024 CNPN Telephone (OBGYF2) AGUSTINA PIMENTEL ([id number]) 4 F DEF Date Time Provider Department 04/16/24 OB MF OBGYF2 During your visit today, we recorded the following information about you: Abelardo Ramon RN 04/16/2024 2:58 PM Signed Called pt and left voicemail. Informed pt the appointment that was made for her on 04/20 was made in error. Requested pt call our office to review what information needs to be sent in a referral before scheduling. Office number provided. ANGIE Brown Nicola, RN 04/18/2024 10:04 AM Signed Called pt and left voicemail. Informed pt we wanted to confirm she got message about her appointment on 04/20 being cancelled and would like to speak to get her rescheduled appropriately. Provided call back number. Abelardo Cratty, RN Allergies As of Date: 04/16/2024 (Not on File) Date Reviewed: Never Reviewed Prescriptions as of 04/18/2024 - cephALEXin (KEFLEX) 500 mg capsule Take 1 capsule by mouth four times daily for 10 days. Problem List As Of Date: 04/16/2024 (None) Encounter Status:Closed by ABELARDO RAMON on 04/16/24 Normal [facility] US PREG LESS THAN 14 WKS SIN LAURAon 04-04-2024 US PREG LESS THAN 14 WKS SINGLE US PREG LESS THAN 14 WKS SINGLE Pelvic ultrasound History:Dates and viability Comparison:None Findings: Single live IUP at 8 weeks 0 days. Covington-rump length 1.6 cm. Heart rate 160 beats minute. The gestational sac is normal in morphology. Gestational sac fluid volume is normal for this very early gestational age. Placental morphology and location cannot be determined based on this early gestational age. Corpus luteal cyst right ovary. Impression: * Single live IUP at 8 weeks 0 days Finalized by Maurice Saldivar MD on 04/04/2024 2:04 PM Normal [facility] HCG.beta subunit IA 3rd IS Q non 03-24-2024 [place] [address] m[IU]/mL Normal [facility] Comment on above: Result Comment: NEW REFERENCE RANGE WEEKS (SINCE LMP) MIU/mL 3 WEEKS 5 - 50 4 WEEKS 5 - 426 5 WEEKS 18 - 7,340 6 WEEKS 1,080 - 56,500 7-8 WEEKS 7,650 - 229,000 9-12 WEEKS 25,700 - 288,000 13-16 WEEKS 13,300 - 254,000 17-24 WEEKS 4,060 - 165,400 25-40 WEEKS 3,640 - 117,000 MALES AND NON- FEMALES - <5 MIU/mL This test has been FDA approved for use in only. Elevated levels are not necessarily diagnostic for trophoblastic or nontrophoblastic neoplasms. Performed By: #### 6 30-4 #### [facility] ([id number]) [address], [address] [place] [address] Follitropin Qnon 03-22-2024 FOLLICLE STIM HORMONE 6.9 mIU/mL Normal [facility] Comment on above: Result Comment: NORMAL FEMALE Luteal 1.8-5.1 mIU/mL Follicular 3.8-8.8 mIU/mL Mid Cycle 4.5-22.5 mIU/mL Post Cammy 16.7-113.6 mIU/mL Performed By: #### 6 30-4 #### [facility] ([id number]) [address] [facility], [address] [place] [address] HCG.beta subunit IA 3rd IS Q non 03-22-2024 [place] [address] m[IU]/mL Normal [facility] Comment on above: Result Comment: NEW REFERENCE RANGE WEEKS (SINCE LMP) MIU/mL 3 WEEKS 5 - 50 4 WEEKS 5 - 426 5 WEEKS 18 - 7,340 6 WEEKS 1,080 - 56,500 7-8 WEEKS 7,650 - 229,000 9-12 WEEKS 25,700 - 288,000 13-16 WEEKS 13,300 - 254,000 17-24 WEEKS 4,060 - 165,400 25-40 WEEKS 3,640 - 117,000 MALES AND NON- FEMALES - <5 MIU/mL This test has been FDA approved for use in only. Elevated levels are not necessarily diagnostic for trophoblastic or nontrophoblastic neoplasms. Performed By: #### 6 30-4 #### [facility] ([id number]) [address], [address] [place] [address] Lutropin Qnon 03-22-2024 LUTEINIZING HORMONE 3.1 mIU/mL Normal [facility] Comment on above: Result Comment: NORMAL FEMALE Follicular 2.1-10.9 mIU/mL Mid Cycle 19.2-103 mIU/mL Luteal 1.2-12.9 mIU/mL Post Cammy 10.9-58.6 mIU/mL Performed By: #### 6 30-4 #### [facility] ([id number]) [address], [address] [place] [address] Prolactin [Mass/Vol]on 03-22 PROLACTIN 27.2 ng/mL High 3.3-26.7 [facility] Comment on above: Performed By: #### 6 30-4 #### [facility] ([id number]) [address], [address] [place] [address] THYROID PROFILEon 03-22-2024 Free T4 [Mass/Vol] 0.90 ng/dL Normal 0.61-1.60 [facility] Comment on above: Performed By: #### 6 30-4 #### [facility] ([id number]) [address], [address] [place] [address] TSH 1.91 uIU/mL Normal 0.49-4.67 [facility] Comment on above: Performed By: #### 6 30-4 #### [facility] ([id number]) [address], [address] [place] [address] CBC AND AUTO DIFFon 02-05-20 24 ABSOLUTE BASOPHIL 0.1 X10E9/L Normal 0.0-0.2 [facility] Comment on above: Performed By: #### C BCA, CMP, 3040-3 #### [facility] ([id number]) [address] [place] [address], [place] [address] ABSOLUTE NEUTROPHIL 5.6 X10E9/L Normal 1.5-6.6 [facility] Comment on above: Performed By: #### Dani ROBISON CMP, 3039-12 #### [facility] ([id number]) [address] [place] [address] Basophils/100 WBC (Bld) 0.8 % Normal [facility] Comment on above: Performed By: #### Dani ROBISON CMP, 3039-12 #### [facility] ([id number]) [address] [place] [address] Eosinophils (Bld) [#/Vol] 0.2 10*3/uL Normal 0.0-0.4 [facility] Comment on above: Performed By: #### Dani ROBISON CMP, 3039-12 #### [facility] ([id number]) [address] [place] [address] Eosinophils/100 WBC (Bld) 2.0 % Normal [facility] Comment on above: Performed By: #### Dani ROBISON CMP, 3039-12 #### [facility] ([id number]) [address] [place] [address] Erythrocyte distribution width (RBC) [Ratio] 12.1 % Normal 11.5-15.0 [facility] Comment on above: Performed By: #### Dani ROBISON CMP, 3039-12 #### [facility] [place] ([id number]) [address] [place] [address] Hematocrit (Bld) [Volume fraction] 40.9 % Normal 35-47 [facility] Comment on above: Performed By: #### Dani ROBISON CMP, 3039-12 #### [facility] ([id number]) [address] [place] [address] Hemoglobin (Bld) [Mass/Vol] 14.2 g/dL Normal 11.7-15.5 [facility] Comment on above: Performed By: #### Dani ROBISON CMP, 3040-3 #### [facility] [place] ([id number]) [address] [place] [address] Lymphocytes (Bld) [#/Vol] 1.8 10*3/uL Normal 1.0-3.5 [facility] Comment on above: Performed By: #### Dani ROBISON CMP, 3039-3 #### [facility] ([id number]) [address] [place] [address] Lymphocytes/100 WBC (Bld) 22.6 % Normal [facility] Comment on above: Performed By: #### Dani ROBISON CMP, 3039-12 #### [facility] [place] ([id number]) [address] [place] [address] MCH (RBC) [Entitic mass] 30.9 pg Normal 27-34 [facility] Comment on above: Performed By: #### Dani ROBISON CMP, 3 #### [facility] ([id number]) [address] [place] [address]70 MCHC (RBC) [Mass/Vol] 34.7 g/dL Normal 32-36 [facility] Comment on above: Performed By: #### Dani ROBISON CMP, 3039-12 #### [facility] [place] ([id number]) [address] [place] [address]008 MCV (RBC) [Entitic vol] 89 fL Normal 80-100 [facility] Comment on above: Performed By: #### Dani ROBISON CMP, 3 #### [facility] ([id number]) [address] [place] [address] Monocytes (Bld) [#/Vol] 0.5 10*3/uL Normal 0-0.9 [facility] Comment on above: Performed By: #### Dani ROBISON CMP, 3039-3 #### [facility] [place] ([id number]) [address] [place] [address] Monocytes/100 WBC (Bld) 5.7 % Normal [facility] Comment on above: Performed By: #### Dani ROBISON CMP, 3040-3 #### [facility] ([id number]) [address] [place] [address] Neutrophils/100 WBC (Bld) 68.9 % Normal [facility] Comment on above: Performed By: #### Dani ROBISON CMP, 3039-3 #### [facility] [place] ([id number]) [address] [place] [address]107 Platelet mean volume (Bld) [Entitic vol] 8.3 fL Normal 7-12 [facility] Comment on above: Performed By: #### Dani ROBISON CMP, 3039-3 #### [facility] ([id number]) [address] [place] [address]253 Platelets (Bld) [#/Vol] 217 10*3/uL Normal 150-450 [facility] Comment on above: Performed By: #### Dani ROBISON CMP, 3039-3 #### [facility] ([id number]) [address] [place] [address] 12454 RBC COUNT 4.59 X10E12/L Normal 3.80-5.20 [facility] Comment on above: Performed By: #### Dani ROBISON CMP, 3039-3 #### [facility] ([id number]) [address] [place] [address] 27599 WBC (Bld) [#/Vol] 8.1 10*3/uL Normal 4.0-11.0 [facility] Comment on above: Performed By: #### Dani ROBISON CMP, 0-3 #### [facility] [place] ([id number]) [address] [place] [address] COMPREHENSIVE METABOLIC PANE Chris 02-05-2024 Albumin [Mass/Vol] 4.5 g/dL Normal 3.2-5.3 [facility] Comment on above: Performed By: #### C GRACIELA ROBISON, 3 #### [facility] ([id number]) [address] [place] [address]40 ALP [Catalytic activity/Vol] 90 U/L Normal 39-130 [facility] Comment on above: Performed By: #### C RICKI CMP, 3 #### [facility] [place] ([id number]) [address] [place] [address] 24855 ALT [Catalytic activity/Vol] 16 U/L Normal 0-31 [facility] Comment on above: Performed By: #### C RICKI CMP, 3039-12 #### [facility] ([id number]) [address] [place] [address] 24528 Anion gap [Moles/Vol] 10 mmol/L Normal 5-15 [facility] Comment on above: Performed By: #### Dani ROBISON CMP, 3039-12 #### [facility] [place] ([id number]) [address] [place] [address] 00440 AST [Catalytic activity/Vol] 15 U/L Normal 0-41 [facility] Comment on above: Performed By: #### Dani ROBISON CMP, 3 #### [facility] ([id number]) [address] [place] [address] 66162 Bilirubin [Mass/Vol] 0.7 mg/dL Normal 0.3-1.2 [facility] Comment on above: Performed By: #### C BCA CMP, 3039-12 #### [facility] [place] ([id number]) [address] [place] [address] 47724 Calcium [Mass/Vol] 9.1 mg/dL Normal 8.5-10.5 [facility] Comment on above: Performed By: #### C BCA CMP, 3 #### [facility] ([id number]) [address] [place] [address] 12880 Chloride [Moles/Vol] 106 mmol/L Normal 98-109 [facility] Comment on above: Performed By: #### C GRACIELA ROBISON, 3039-3 #### [facility] ([id number]) [address] [place] [address] 22544 CO2 [Moles/Vol] 21 mmol/L Low 22-32 [facility] Comment on above: Performed By: #### C RICKI [facility], 3 #### [facility] [place] ([id number]) [address] [place] [address] 65895 Creatinine [Mass/Vol] 1.11 mg/dL High 0.40-1.00 [facility] Comment on above: Result Comment: METH OD TRACEABLE TO IDMS STANDARD Performed By: #### C RICKI [facility], 3039-12 #### [facility] [place] ([id number]) [address] [place] [address] 89458 GFR/1.73 sq M.predicted among non-blacks MDRD (S/P/Bld) [Vol rate/Area] 73 mL/min/{1.73_m2} Normal >59 [facility] Comment on above: Result Comment: Reported eGFR is based on the CKD-EPI 2020 equation that does not use a race coefficient. Performed By: #### C GRACIELA ROBISON, 3 #### [facility] [place] ([id number]) [address] [place] [address] 99659 Glucose [Mass/Vol] 98 mg/dL Normal 65-99 [facility] Comment on above: Performed By: #### C GRACIELA ROBISON, 304-3 #### [facility] [place] ([id number]) [address] [place] [address]129 Potassium [Moles/Vol] 4.8 mmol/L Normal 3.5-5.0 [facility] Comment on above: Performed By: #### C BCA, [facility], 3040-3 #### [facility] [place] ([id number]) [address] [place] [address] 48847 Protein [Mass/Vol] 7.5 g/dL Normal 6.0-8.0 [facility] Comment on above: Performed By: #### C BCA, [facility], 3040-3 #### [facility] [place] ([id number]) [address] [place] [address] 07755 Sodium [Moles/Vol] 137 mmol/L Normal 134-146 [facility] Comment on above: Performed By: #### C BCA, CMP, 3040-3 #### [facility] [place] ([id number]) [address] [place] [address] 66341 Urea nitrogen [Mass/Vol] 18 mg/dL Normal 5-23 [facility] Comment on above: Performed By: #### C BCA, [facility], 3040-3 #### [facility] [place] ([id number]) [address] [place] [address] ABDOMEN AND PELVIS W CONT on [...] suspicious renal lesion. Urinary bladder wall appears thickened/trabeculated . Small physiologic amount of pelvic free fluid. [...] Frankie Roque MD on 02/05/2024 6:41 AM I, Lyle Perez MD have personally reviewed the image(s) and agree with and/or edited the report Finalized by Lyle Perez MD on 02/05/2024 7:23 AM Normal [facility] HCG ( test) IA.rapi d Ql (S)on 02-05-2024 SERUM Negative Normal NEG [facility] Comment on above: Performed By: #### 8 0385-8 #### [facility] [place] ([id number]) [address] [place] [address] 76344 LIPASEon 02-05-2024 Lipase [Catalytic activity/Vol] 35 U/L Normal 17-40 [facility] Comment on above: Performed By: #### C BCA, CMP, 3040-3 #### [facility] [place] ([id number]) [address] [place] [address] 29514 URN MACROSCOPIC NURon 2023 BILIRUBIN HANANE Negative Normal NEG [facility] Comment on above: Performed By: #### 6 30-4 #### [facility] ([id number]) [address], [address] [place] [address] BLOOD/HGB HANANE Trace Abnormal NEG [facility] Comment on above: Performed By: #### 6 30-4 #### [facility] ([id number]) [address] [place] [address] GLUCOSE HANANE Negative Normal NEG [facility] Comment on above: Performed By: #### 6 30-4 #### [facility] ([id number]) [address] [place] [address] KETONES HANANE 15 mg/dL Abnormal NEG [facility] Comment on above: Performed By: #### 6 30-4 #### [facility] ([id number]) [address] [place] [address] LEUKOCYTE ESTERASE HANANE Negative Normal NEG [facility] Comment on above: Performed By: #### 6 30-4 #### [facility] ([id number]) [address] [place] [address] NITRITE HANANE Negative Normal NEG [facility] Comment on above: Performed By: #### 6 30-4 #### [facility] ([id number]) [address] [place] [address] PH HANANE 6.0 Normal 5.0-8.5 [facility] Comment on above: Performed By: #### 6 30-4 #### [facility] ([id number]) [address] [place] [address] PROTEIN HANANE 30 mg/dL Abnormal NEG [facility] Comment on above: Performed By: #### 6 30-4 #### [facility] ([id number]) [address] [place] [address] SPECIFIC GRAVITY HANANE 1.020 Normal 1.003-1.035 [facility] Comment on above: Performed By: #### 6 30-4 #### [facility] ([id number]) [address] [place] [address] UROBILINOGEN HANANE 0.2 eu/dL Normal <1.1 [facility] Comment on above: Performed By: #### 6 30-4 #### [facility] ([id number]) [address] [place] [address] 36on 01-03-2024 36 Patient called and would like to know if it would be ok for her to get gardisil injection? Normal [facility] CHLAMYDIA/GC PCR, FLon 11-15 CHLAMYDIA/GC PCR, FL SPECIMEN SOURCE ThinPrep CHLAMYDIA DNA(PCR) Positive (qualifier value) Chlamydia trachomatis detected by nucleic acid amplification. GONORRHOEAE DNA(PCR) Negative (qualifier value) Neisseria gonorrhoeae not detected by nucleic acid amplification. This does not exclude the possibility of infection because results are dependent on adequate specimen collection. Normal [facility] Comment on above: Performed By: #### C GT #### [facility] [place] ([id number]) [address] [facility] FIRST FLO[address] [place], [place] [address] [place] [address] LAB ([id number]) [address] [place] [address], [address] [place] [address] Cytologyon 11-15-2023 Cytology Abnormal [facility] Comment on above: Result Comment: [facility] [address] [place] [address] Gynecologic Cytology Consultation Patient Name:AGUSTINA PIMENTEL:2000 (Age: 23)Gender:FTaken:4Reported:4Physician(s):Kathryn Nettles M.D. ([phone])Copy To: Rec. #:[id number]: #[id number] Final Cytologic Interpretation ThinPrep Pap Test (Cervical): Satisfactory for evaluation. A transformation zone component is present. SQUAMOUS EPITHELIAL CELL ABNORMALITY Atypical squamous cells of undetermined significance (ASC-US). wak/11/23/2023 [facility] [address] [place] [address], License number: [id number]. 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 [facility] Comment on above: Performed By: #### 7 1431-1 #### [facility] ([id number]) [address] [place] [address], [place] [address] [facility] ([id number]) [address] [place] [address], [facility] [place] [address] VAGINITIS PANEL PCRon 2023 VAGINITIS PANEL PCR [...] detected (qualifier value) No Nate krusei detected NATE GLABRATA DNA Not detected (qualifier value) No Nate glabrata detected TRICHOMONAS VAG DNA Not detected (qualifier value) No Trichomonas vaginalis detected NOTE BD MAX Vaginal Panel has not been evaluated for patients under 18 years old. Results for these patients should be reviewed and assessed in accordance with clinical presentation to determine patient diagnosis. [facility] Comment on above: Performed By: #### V PPCR #### [facility] ([id number]) [address] [place] [address], [address] [place] [address] POCT , urineon 10-18 Beta HCG ( test) Ql (U) Negative [facility] Interpretation and review of laboratory results [facility] 36on 10-04-2023 36 Patient has mitpranoff, she [...] to the ED for an evaluation. Normal [facility] URINE CULTUREon 10-04-2023 Bacteria identified Cx Nom (U) CULTURE RESULTS >100,000 ORGANISMS/mL STREPTOCOCCUS AGALACTIAE (GROUP B) Abnormal [facility] Comment on above: Performed By: #### 6 30-4 #### [facility] ([id number]) [address] [place] [address], [address] [place] [address] URN MACROSCOPIC NURon 2022 BILIRUBIN HANANE Negative Normal NEG [facility] Comment on above: Performed By: #### N UM #### [facility] [place] ([id number]) [address] [place] [address] 86851 BLOOD/HGB HANANE Trace Abnormal NEG [facility] Comment on above: Performed By: #### N UM #### [facility] [place] ([id number]) [address] [place] [address] 39915 GLUCOSE HANANE Negative Normal NEG [facility] Comment on above: Performed By: #### N UM #### [facility] [place] ([id number]) [address] [place] [address] 18257 KETONES HANANE Negative Normal NEG [facility] Comment on above: Performed By: #### N UM #### [facility] [place] ([id number]) [address] [place] [address] 90426 LEUKOCYTE ESTERASE HANANE Negative Normal NEG [facility] Comment on above: Performed By: #### N UM #### [facility] [place] ([id number]) [address] [place] [address] 35796 NITRITE HANANE Negative Normal NEG [facility] Comment on above: Performed By: #### N UM #### [facility] [place] ([id number]) [address] [place] [address] 41828 PH HANANE 6.5 Normal 5.0-8.5 [facility] Comment on above: Performed By: #### N UM #### [facility] [place] ([id number]) [address] [place] [address] 15770 PROTEIN HANANE 100 mg/dL Abnormal NEG [facility] Comment on above: Performed By: #### N UM #### [facility] [place] ([id number]) [address] [place] [address] 71429 SPECIFIC GRAVITY HANANE 1.020 Normal 1.003-1.035 [facility] Comment on above: Performed By: #### N UM #### [facility] [place] ([id number]) [address] [place] [address] 14989 UROBILINOGEN HANANE 0.2 eu/dL Normal <1.1 [facility] Comment on above: Performed By: #### N UM #### [facility] [place] ([id number]) [address] [place] [address] 31144 BASIC METABOLIC PANELon 08-3 Anion gap [Moles/Vol] 12 mmol/L Normal 7-20 [facility] Comment on above: Performed By: #### L [id number] #### [facility] ([facility]) [address] [place] [address] Calcium [Mass/Vol] 10.0 mg/dL Normal 8.6-10.3 [facility] Comment on above: Performed By: #### L [id number] #### [facility] [address] [place] [address] Chloride [Moles/Vol] 107 mmol/L Normal 98-107 [facility] Comment on above: Performed By: #### L [id number] #### [facility] ([facility]) [address] [place] [address] CO2 [Moles/Vol] 27 mmol/L Normal 21-31 [facility] Comment on above: Performed By: #### L [id number] #### [facility] ([facility]) [address] [place] [address] Creatinine [Mass/Vol] 1.08 mg/dL Normal 0.60-1.20 [facility] Comment on above: Performed By: #### L [id number] #### [facility] ([facility]) [address] [place] [address] GLOMERULAR FILTRATION RATE ML/MIN/1.73 SQ M.PREDICTED 75.4 mL/min/1.73m*2 Normal >60.0 [facility] Comment on above: Result Comment: [facility]???s estimated glomerular filtration rate (eGFR) will [...] individuals. Performed By: #### L [id number] #### [facility] ([facility]) [address] [place] [address] Glucose [Mass/Vol] 83 mg/dL Normal 70-100 [facility] Comment on above: Performed By: #### L [id number] #### [facility] [address] [place] [address] Potassium [Moles/Vol] 5.2 mmol/L High 3.5-5.1 [facility] Comment on above: Performed By: #### L [id number] #### [facility] [address] [place] [address] Sodium [Moles/Vol] 141 mmol/L Normal 136-145 [facility] Comment on above: Performed By: #### L [id number] #### [facility] ([facility] [address] [place] [address] Urea nitrogen [Mass/Vol] 15 mg/dL Normal 7-25 [facility] Comment on above: Performed By: #### L [id number] #### [facility] ([facility]) [address] [place] [address] UREA NITROGEN/CREATININE (MASS RATIO) IN SER/PLAS 13.9 Normal [facility] Comment on above: Performed By: #### L [id number] #### [facility] ([facility]) [address] [place] [address] CBCon 06-16-2023 Erythrocyte distribution width (RBC) [Ratio] 12.3 % Normal 11.5-15.0 [facility] Comment on above: Performed By: #### L [id number] ####[facility] ([facility])[address] [place] [address] ERYTHROCYTE MEAN CORPUSCULAR HEMOGLOBIN CONCENTRATION (G/DL) BY AUTOMATED 32.2 g/dL Normal 32.0-35.0 [facility] Comment on above: Performed By: #### L [id number] ####[facility] ([facility] [place] [address] Hematocrit (Bld) [Volume fraction] 42.8 % Normal 36.0-48.0 [facility] Comment on above: Performed By: #### L [id number] ####[facility] ([facility])[address] [place] [address] Hemoglobin (Bld) [Mass/Vol] 13.8 g/dL Normal 12.0-15.0 [facility] Comment on above: Performed By: #### L [id number] ####[facility] ([facility])[address] [place] [address] MCH (RBC) [Entitic mass] 29.3 pg Normal 27.0-33.0 [facility] Comment on above: Performed By: #### L [id number] ####[facility] ([facility])[address] [place] [address] MCV (RBC) [Entitic vol] 90.9 fL Normal 82.0-98.0 [facility] Comment on above: Performed By: #### L [id number] ####[facility] ([facility])[address] [place] [address] PLATELETS (10*3/UL) IN BLOOD AUTOMATED COUNT 273 10*3/uL Normal 150-400 [facility] Comment on above: Performed By: #### L [id number] ####[facility] ([facility])[address] [place] [address] RBC (Bld) [#/Vol] 4.71 10*6/uL Normal 3.80-5.00 [facility] Comment on above: Performed By: #### L [id number] ####[facility] ([facility])[address] [place] [address] WBC (Bld) [#/Vol] 7.35 10*3/uL Normal 4.00-10.60 [facility] Comment on above: Performed By: #### L [id number] ####[facility] ([facility])[address] [place] [address] CREATININE, URINE, RANDOMon 06-16-2023 Creatinine (U) [Mass/Vol] 101.0 mg/dL Normal 26-299 [facility] Comment on above: Performed By: #### L [id number] #### [facility] ([facility]) [address] [place] [address] Labon 06-16-2023 Lab [id number] Agustina Pimentel 2000 F Date Provider Department [place] 06/16/[address] [place] [address] LAB RESOURCE [facility] Comprehensiv Family History Problem Relation Age of Onset Bipolar disorder Mother Constipation Mother Family Status - Relation Status Age at Mother Normal [facility] MAGNESIUMon 06-16-2023 Magnesium [Mass/Vol] 1.7 mg/dL Low 1.9-2.7 [facility] Comment on above: Performed By: #### L [id number] ####[facility] ([facility])[address] [place] [address] Office Visiton 06-16-2023 Follow-up visit [id number] Agustina Pimentel 2000 F Date Provider Department Center 06/16/[id number]-BVIQIDLOR LOZANO [facility] Comprehensiv Family History Problem Relation Age of Onset Bipolar disorder Mother Constipation Mother Family Status - Relation Status Age at Mother Level of Service:30355 CA OFFICE/OUTPATIENT ESTABLISHED MOD MDM 30-39 MIN Reason for Visit and Comments: Follow-up [404851] Normal [facility] PROTEIN, URINE, RANDOMon Protein (U) [Mass/Vol] 38.4 mg/dL Normal [facility] Comment on above: Result Comment: Ther e are no established reference values for random urine specimens. Performed By: #### L [id number] #### [facility] ([facility]) [address] [place] [address] URINALYSISon 06-16-2023 BILIRUBIN, TOTAL PRESENCE IN URINE Negative Normal Negative [facility] Comment on above: Performed By: #### L [id number] #### [facility] ([facility]) [address] [place] [address] Clarity (U) Slightly Cloudy Abnormal Clear [facility] Comment on above: Performed By: #### L [id number] #### [facility] ([facility]) [address] [place] [address] Color (U) Yellow Normal Yellow [facility] Comment on above: Performed By: #### L [id number] #### [facility] ([facility]) [address] [place] [address] Glucose (U) [Mass/Vol] Negative Normal Negative [facility] Comment on above: Performed By: #### L [id number] #### [facility] ([facility]) [address] [place] [address] HEMOGLOBIN PRESENCE IN URINE Moderate Abnormal Negative [facility] Comment on above: Performed By: #### L [id number] #### [facility] ([facility]) [address] [place] [address] Ketones Ql (U) Negative Normal Negative [facility] Comment on above: Performed By: #### L [id number] #### [facility] ([facility]) [address] [place] [address] LEUKOCYTE ESTERASE PRESENCE IN URINE BY TEST STRIP Small Abnormal Negative [facility] Comment on above: Performed By: #### L [id number] #### [facility] ([facility]) [address] [place] [address] NITRITE PRESENCE IN URINE Negative Normal Negative [facility] Comment on above: Performed By: #### L [id number] #### [facility] ([facility]) [address] [place] [address] pH (U) 7.0 [pH] Normal 5.0-8.0 [facility] Comment on above: Performed By: #### L [id number] #### [facility] ([facility]) [address] [place] [address] Protein (U) [Mass/Vol] 30 mg/dL Abnormal Negative [facility] Comment on above: Performed By: #### L [id number] #### [facility] ([facility]) [address] [place] [address] Specific gravity (U) [Rel density] 1.012 Low 1.015-1.020 [facility] Comment on above: Performed By: #### L [id number] #### [facility] ([facility]) [address] [place] [address] URINALYSIS MICROSCOPICon CASTS IN URINE Normal [facility] Comment on above: Performed By: #### L [id number] ####[facility] ([facility])[address] [place] [address] CRYSTALS IN URINE Normal [facility] Comment on above: Performed By: #### L [id number] ####[facility] ([facility])[address] [place] [address] MUCUS (#/HPF) IN URINE SEDIMENT Occasional Normal None Seen, Occasional, Few [facility] Comment on above: Performed By: #### L [id number] ####[facility] [place] [address] RBC (#/HPF) IN URINE SEDIMENT 11-20 Abnormal None Seen [facility] Comment on above: Performed By: #### L [id number] ####[facility] [place] [address] SQUAMOUS EPITHELIAL CELLS (#/HPF) IN URINE SEDIMENT Occasional Normal None Seen, Occasional [facility] Comment on above: Performed By: #### L [id number] ####[facility] [place] [address] WBC (LEUKOCYTE) (#/HPF) IN URINE SEDIMENT 51-100 Abnormal None Seen [facility] Comment on above: Performed By: #### L [id number] ####[facility] ([facility])[address] [place] [address] 36on 03-30-2023 36 Called and scheduled appointment Normal [facility] 36on 03-29-2023 36 Pt called to reschedule appt for 03/31. Normal [facility] CULTURE URINEon 03-01-2023 CULTURE URINE Isolate 1 Enterococcus faecalis >100,000 cfu/ml of ORGANISM 1 Enterococcus faecalis ANTIBIOTIC M.I.C RX STATUS Beta-Lactamase Neg NEG F Benzylpenicillin 1 S F Ampicillin <=2 S F Gentamicin High Level (synergy) SYN-R R F Streptomycin High Level (synergy) SYN-S S F Ciprofloxacin <=0.5 S F Levofloxacin 1 S F Quinupristin/Dalfopris tin 4 R F Linezolid 1 S F Vancomycin 1 S F Tetracycline >=16 R F Nitrofurantoin <=16 S F Normal [facility] Comment on above: Performed By: #### E RUR PREGU, UMICRO #### [facility] [address] [place] [address] Dr. Monserrat VALENCIA URINE PROFILEon 3 Bilirubin Ql (U) Negative Normal NEGATIVE [facility] Comment on above: Performed By: #### E RUR, UMICRO #### [facility] [address] [place] [address] Dr. Monserrat Chu Clarity (U) CLEAR Normal CLEAR [facility] Comment on above: Performed By: #### E RUR UMICRO #### [facility] [address] [place] [address] Dr. Monserrat Chu Color (U) LT. YELLOW Normal YELLOW [facility] Comment on above: Performed By: #### E RUR UMICRO #### [facility] [address] [place] [address] Dr. Monserrat PROCTOR A micrscopic examination will be performed if indicated. Normal [facility] Comment on above: Performed By: #### E RUR UMICRO #### [facility] [address] [place] [address] Dr. Monserrat Chu Glucose Ql (U) Negative Normal NEGATIVE [facility] Comment on above: Performed By: #### Radha RUR UMICRO #### [facility] [address] [place] [address] Dr. Monserrat Chu Hemoglobin Ql (U) MODERATE Abnormal NEGATIVE [facility] Comment on above: Performed By: #### E RUR, UMICRO #### [facility] [address] [place] [address] Dr. Monserrat Chu Ketones Ql (U) Negative Normal NEGATIVE [facility] Comment on above: Performed By: #### E RUR, UMICRO #### [facility] [address] [place] [address] Dr. Monserrat Chu LEUKOCYTES MODERATE Abnormal NEGATIVE [facility] Comment on above: Performed By: #### E RUR, UMICRO #### [facility] [address] [place] [address] Dr. Monserrat Chu Nitrite Ql (U) Negative Normal NEGATIVE [facility] Comment on above: Performed By: #### DIRK BERMEO #### [facility] [address] [place] [address] Dr. Monserrat Chu pH (U) 6.5 [pH] Normal 5-9 [facility] Comment on above: Performed By: #### DIRK BERMEO #### [facility] [address] [place] [address] Dr. Monserrat Chu SPEC GRAVITY 1.015 Normal 1.005-<=1.025 [facility] Comment on above: Performed By: #### DIRK BERMEO #### [facility] [address] [place] [address] Dr. Monserrat Chu UA PROTEIN TRACE Normal NEGATIVE/ TRACE [facility] Comment on above: Performed By: #### DIRK BERMEO #### [facility] [address] [place] [address] Dr. Monserrat Chu UR MICRO IND INDICATED Normal [facility] Comment on above: Performed By: #### DIRK BERMEO #### [facility] [address] [place] [address] Dr. Monserrat Chu Urobilinogen Qn (U) 1.0 {Sanjuana'U}/dL Normal 0.2 - 1. 0 [facility] Comment on above: Performed By: #### ABDIRAHMAN BERMEORO #### [facility] [address] [place] [address] Dr. Monserrat Chu URINE MICROSCOPIC ONLYon BACTERIA SMALL Abnormal NONE SEEN [facility] Comment on above: Performed By: #### ABDIRAHMAN BERMEORO #### [facility] [address] [place] [address] Dr. Monserrat Chu Bacteria identified Cx Nom (U) INDICATED Normal [facility] Comment on above: Performed By: #### DIRK BERMEO #### [facility] [address] [place] [address] Dr. Monserrat Chu CAST NONE SEEN Normal NONE SEEN [facility] Comment on above: Performed By: #### E YOGESH UMICRO #### [facility] [address] [place] [address] Dr. Monserrat Chu Crystals LM Nom (Urine sed) NONE SEEN Normal NONE SEEN [facility] Comment on above: Performed By: #### Radha ZUÑIGA, UMICRO #### [facility] [address] [place] [address] Dr. Monserrat Chu Epithelial cells LM Ql (Urine sed) MODERATE Abnormal NONE SEEN /RARE [facility] Comment on above: Performed By: #### E YOGESH UMICRO #### [facility] [address] [place] [address] Dr. Monserrat Chu MUCOUS TRACE Abnormal NONE SEEN [facility] Comment on above: Performed By: #### Radha ZUÑIGA UMICRO #### [facility] [address] [place] [address] Dr. Monserrat Chu RBC 10-20 Abnormal 0-2 [facility] Comment on above: Performed By: #### Radha ZUÑIGA UMICRO #### [facility] [address] [place] [address] Dr. Monserrat Chu WBC 10-20 Abnormal NONE SEEN [facility] Comment on above: Performed By: #### Radha ZUÑIGA, UMICRO #### [facility] [address] [place] [address] Dr. Monserrat Chu CULTURE URINEon 01-28-2023 CULTURE [...] F Tetracycline <=0.25 S F Normal [facility] Comment on above: Performed By: #### E RUKEVAN Mays UMICRO #### [facility] [address] [place] [address] Dr. Monserrat Chu ABO AND RH TYPEon 01-25-2023 ABO and Rh group Nom (Bld) ABO Rh Typing A Rh Positive Normal [facility] Comment on above: Performed By: #### E KEVAN ZUÑIGA UMICRO #### [facility] [address] [place] [address] Dr. Monserrat Chu CBC AUTO DIFFon 01-25-2023 BASO # 0.0 103/ul Normal 0.0-0.1 [facility] Comment on above: Performed By: #### C BC #### [facility] [address] [place] [address] Dr. Monserrat Chu Basophils/100 WBC (Bld) 0.6 % Normal 0.2-2.0 [facility] Comment on above: Performed By: #### C BC #### [facility] [address] [place] [address] Dr. Monserrat Chu EO # 0.1 103/ul Normal 0.0-0.7 [facility] Comment on above: Performed By: #### C BC #### [facility] [address] [place] [address] Dr. Monserrat Chu Eosinophils/100 WBC (Bld) 1.2 % Normal 0.9-7.0 [facility] Comment on above: Performed By: #### C BC #### [facility] [address] [place] [address] Dr. Monserrat Chu Erythrocyte distribution width (RBC) [Ratio] 12.4 % Normal 11.0-15.0 [facility] Comment on above: Performed By: #### C BC #### [facility] [address] [place] [address] Dr. Monserrat Chu Hematocrit (Bld) [Volume fraction] 41.5 % Normal 36.0-48.0 [facility] Comment on above: Performed By: #### C BC #### [facility] [address] [place] [address] Dr. Monserrat Chu Hemoglobin (Bld) [Mass/Vol] 13.5 g/dL Normal 12.0-16.0 [facility] Comment on above: Performed By: #### C BC #### [facility] [address] [place] [address] Dr. Monserrat Chu IG # 0.02 10e3/ul Normal 0.00-0.03 [facility] Comment on above: Performed By: #### C BC #### [facility] [address] [place] [address] Dr. Monserrat Chu IG % 0.3 % Normal 0.0-0.5 [facility] Comment on above: Performed By: #### C BC #### [facility] [address] [place] [address] Dr. Monserrat Chu LYMPH # 1.6 103/ul Normal 1.2-3.8 [facility] Comment on above: Performed By: #### C BC #### [facility] [address] [place] [address] Dr. Monserrat Chu Lymphocytes/100 WBC (Bld) 23.5 % Normal 20.5-60.0 [facility] Comment on above: Performed By: #### C BC #### [facility] [address] [place] [address] Dr. Monserrat Chu MANUAL DIFF REQ NO Normal [facility] Comment on above: Performed By: #### C BC #### [facility] [address] [place] [address] Dr. Monserrat Chu MCH (RBC) [Entitic mass] 29.5 pg Normal 26.7-34.0 [facility] Comment on above: Performed By: #### C BC #### [facility] [address] [place] [address] Dr. Monserrat Chu MCHC (RBC) [Mass/Vol] 32.5 g/dL Normal 29.9-35.2 [facility] Comment on above: Performed By: #### C BC #### [facility] [address] [place] [address] Dr. Monserrat Chu MCV (RBC) [Entitic vol] 90.6 fL Normal 81.0-99.0 [facility] Comment on above: Performed By: #### C BC #### [facility] [address] [place] [address] [address] Monserrat Chu MONO # 0.4 103/ul Normal 0.3-0.8 [facility] Comment on above: Performed By: #### C BC #### [facility] [address] [place] [address] [address] Monserrat Chu Monocytes/100 WBC (Bld) 5.5 % Normal 1.7-12.0 [facility] Comment on above: Performed By: #### C BC #### [facility] [address] [address] [address] Monserrat Chu NEUT # 4.5 103/ul Normal 1.4-6.5 [facility] Comment on above: Performed By: #### C BC #### [facility] [address] [place] [address] Dr. Monserrat Chu Neutrophils/100 WBC (Bld) 68.9 % Normal 43.0-75.0 [facility] Comment on above: Performed By: #### C BC #### [facility] Laboratory [address] [place] [address] Dr. Monserrat Chu Platelet mean volume (Bld) [Entitic vol] 9.2 fL Critically low 9.5-13.5 [facility] Comment on above: Performed By: #### C BC #### [facility] Laboratory [address] [place] [address] Dr. Monserrat Chu PLT 264 103/ul Normal 150-450 [facility] Comment on above: Performed By: #### C BC #### [facility] [address] [place] [address] Dr. Monserrat Chu RBC 4.58 106/ul Normal 4.20-5.40 [facility] Comment on above: Performed By: #### C BC #### [facility] Laboratory [address] [place] [address] Dr. Monserrat Chu WBC 6.6 103/ul Normal 4.0-11.0 [facility] Comment on above: Performed By: #### C BC #### [facility] Laboratory [address] [address] [address] Monserrat Chu ER URINE PROFILEon 3 Bilirubin Ql (U) Negative Normal NEGATIVE [facility] Comment on above: Performed By: #### E RUR, PREGU, UMICRO #### [facility] [address] [address] [address] Monserrat Chu Clarity (U) CLEAR Normal CLEAR [facility] Comment on above: Performed By: #### E RUR, PREGU, UMICRO #### [facility] [address] [address] [address] Monserrat Chu Color (U) LT. YELLOW Normal YELLOW [facility] Comment on above: Performed By: #### E RUR, PREGU, UMICRO #### [facility] [address] [place] [address] Dr. Monserrat PROCTOR A micrscopic examination will be performed if indicated. Normal [facility] Comment on above: Performed By: #### E RUR, PREGU, UMICRO #### [facility] [address] [address] [address] Monserrat Chu Glucose Ql (U) Negative Normal NEGATIVE [facility] Comment on above: Performed By: #### E RUR, PREGU, UMICRO #### [facility] [address] [address] [address] Monserrat Chu Hemoglobin Ql (U) SMALL Abnormal NEGATIVE [facility] Comment on above: Performed By: #### E RUR, PREGU, UMICRO #### [facility] [address] [address] [address] Monserrat Chu Ketones Ql (U) Negative Normal NEGATIVE [facility] Comment on above: Performed By: #### E RUR, PREGU, UMICRO #### [facility] [address] [address] [address] Monserrat Chu LEUKOCYTES MODERATE Abnormal NEGATIVE [facility] Comment on above: Performed By: #### E RUR, PREGU, UMICRO #### [facility] [address] [address] [address] Monserrat Chu Nitrite Ql (U) Positive Abnormal NEGATIVE [facility] Comment on above: Performed By: #### KEVAN BERMEO UMICRO #### [facility] [address] [place] [address] Dr. Monserrat Chu pH (U) 8.0 [pH] Normal 5-9 [facility] Comment on above: Performed By: #### KEVAN BERMEO UMICRO #### [facility] [address] [place] [address] Dr. Monserrat Chu Protein (U) [Mass/Vol] 30 mg/dL Abnormal NEGATIVE/ TRACE [facility] Comment on above: Performed By: #### KEVAN BERMEO UMICRO #### [facility] [address] [place] [address] Dr. Monserrat Chu SPEC GRAVITY 1.015 Normal 1.005-<=1.025 [facility] Comment on above: Performed By: #### KEVAN BERMEO UMICRO #### [facility] [address] [place] [address] Dr. Monserrat Chu UR MICRO IND INDICATED Normal [facility] Comment on above: Performed By: #### KEVAN BERMEO UMICRO #### [facility] [address] [place] [address] Dr. Monserrat Chu Urobilinogen Qn (U) 0.2 {Sanjuana'U}/dL Normal 0.2 - 1. 0 [facility] Comment on above: Performed By: #### KEVAN BERMEO UMICRO #### [facility] [address] [place] [address] Dr. Monserrat Chu LIPASEon 01-25-2023 Lipase [Catalytic activity/Vol] 96.0 U/L Normal 73.0-393.0 [facility] Comment on above: Performed By: #### KEVAN BERMEO UMICRO #### [facility] [address] [place] [address] Dr. Monserrat Chu PREG QUANT HCGon 01-25-2023 HCG QUANT <1 Normal [facility] Comment on above: Performed By: #### P REGQNT #### [facility] [address] [place] [address] Dr. Monserrat Chu HCG RANGE SEE BELOW Normal [facility] Comment on above: Result Comment: 5-50 0.2-1 WEEK 50-500 1-2 WEEKS 100-5,000 2-3 WEEKS 500-10,000 3-4 WEEKS 1,000-50,000 4-5 WEEKS 10,000-100,000 5-6 WEEKS 15,000-200,000 6-8 WEEKS 10,000-100,000 2-3 MONTHS Performed By: #### P REGQNT #### [facility] [address] [place] [address] Dr. Monserrat Chu PROF 14(COMP METB)on 023 Albumin [Mass/Vol] 4.0 g/dL Normal 3.4-5.0 [facility] Comment on above: Performed By: #### KEVAN BERMEO UMICRO #### [facility] [address] [place] [address] Dr. Monserrat Chu Albumin/Globulin [Mass ratio] 1.2 {ratio} Normal [facility] Comment on above: Performed By: #### KEVAN BERMEO UMICRO #### [facility] [address] [place] [address] Dr. Monserrat Chu ALP [Catalytic activity/Vol] 111 U/L Normal 46-116 [facility] Comment on above: Performed By: #### KEVAN BERMEO UMICRO #### [facility] [address] [place] [address] Dr. Monserrat Chu ALT [Catalytic activity/Vol] 21 U/L Normal 14-59 [facility] Comment on above: Performed By: #### KEVAN BERMEO UMICRO #### [facility] [address] [place] [address] Dr. Monserrat Chu Anion gap [Moles/Vol] 12.9 mmol/L Normal [facility] Comment on above: Performed By: #### KEVAN BERMEO UMICRO #### [facility] [address] [address] [address] Monserrat Chu AST [Catalytic activity/Vol] 15 U/L Normal 15-37 [facility] Comment on above: Performed By: #### E RUR PREGU, UMICRO #### [facility] [address] [place] [address] Dr. Monserrat Chu Bilirubin [Mass/Vol] 0.3 mg/dL Normal 0.2-1.0 [facility] Comment on above: Performed By: #### E RUR PREGU, UMICRO #### [facility] [address] [address] [address] Monserrat Chu Calcium [Mass/Vol] 9.6 mg/dL Normal 8.5-10.1 [facility] Comment on above: Performed By: #### E RUR PREGU, UMICRO #### [facility] [address] [place] [address] Dr. Monserrat Chu Chloride [Moles/Vol] 108 mmol/L Critically high 98-107 [facility] Comment on above: Performed By: #### Radha ZUÑIGA PREGU, UMICRO #### [facility] [address] [address] [address] Monserrat Chu CO2 [Moles/Vol] 27.6 mmol/L Normal 21.0-32.0 [facility] Comment on above: Performed By: #### E RUR PREGU, UMICRO #### [facility] [address] [place] [address] Dr. Monserrat Chu Creatinine [Mass/Vol] 1.06 mg/dL Critically high 0.55-1.02 [facility] Comment on above: Performed By: #### E RUR PREGU, UMICRO #### [facility] [address] [place] [address] Dr. Monserrat Chu EGFR-AF [place]AST [place] >60 Normal >=60 [facility] Comment on above: Performed By: #### E RUR, PREGU, UMICRO #### [facility] [address] [place] [address] Dr. Monserrat Chu EGFR-NON AF [place] >60 Normal >=60 [facility] Comment on above: Performed By: #### KEVAN BERMEO UMICRO #### [facility] [address] [address] [address] Monserrat Chu Globulin (S) [Mass/Vol] 3.3 g/dL Normal [facility] Comment on above: Performed By: #### KEVAN BERMEO UMICRO #### [facility] [address] [address] [address] Monserrat Chu Glucose [Mass/Vol] 96 mg/dL Normal 74-106 [facility] Comment on above: Performed By: #### KEVAN BERMEO UMICRO #### [facility] [address] [place] [address] Dr. Monserrat Chu Potassium [Moles/Vol] 4.5 mmol/L Normal 3.5-5.1 [facility] Comment on above: Performed By: #### KEVAN BERMEO UMICRO #### [facility] [address] [place] [address] Dr. Monserrat Chu Protein [Mass/Vol] 7.3 g/dL Normal 6.4-8.2 [facility] Comment on above: Performed By: #### KEVAN BERMEO UMICRO #### [facility] [address] [place] [address] Dr. Monserrat Chu Sodium [Moles/Vol] 144 mmol/L Normal 136-145 [facility] Comment on above: Performed By: #### KEVAN BERMEO UMICRO #### [facility] [address] [place] [address] Dr. Monserrat Chu Urea nitrogen [Mass/Vol] 18.0 mg/dL Normal 7.0-18.0 [facility] Comment on above: Performed By: #### KEVAN BERMEO UMICRO #### [facility] [address] [place] [address] Dr. Monserrat Chu Urea nitrogen/Creatinine [Mass ratio] 17.0 mg/mg Normal [facility] Comment on above: Performed By: #### E RUR, PREGU, UMICRO #### [facility] [address] [address] [address] Monserrat Chu URINE MICROSCOPIC ONLYon BACTERIA SMALL Abnormal NONE SEEN [facility] Comment on above: Performed By: #### E RUR, PREGU, UMICRO #### [facility] [address] [address] [address] Monserrat Chu Bacteria identified Cx Nom (U) INDICATED Normal [facility] Comment on above: Performed By: #### E RUR, PREGU, UMICRO #### [facility] [address] [address] [address] Monserrat Chu CAST NONE SEEN Normal NONE SEEN [facility] Comment on above: Performed By: #### E RUR, PREGU, UMICRO #### [facility] [address] [address] [address] Monserrat Chu Crystals LM Nom (Urine sed) SEEN Abnormal NONE SEEN [facility] Comment on above: Performed By: #### E RUR, PREGU, UMICRO #### [facility] [address] [address] [address] Monserrat Chu Epithelial cells LM Ql (Urine sed) NONE SEEN Normal NONE SEEN /RARE [facility] Comment on above: Performed By: #### E RUR, PREGU, UMICRO #### [facility] [address] [address] [address] Monserrat Chu MUCOUS NONE SEEN Normal NONE SEEN [facility] Comment on above: Performed By: #### E RUR, PREGU, UMICRO #### [facility] [address] [address] [address] Monserrat Chu RBC 5-10 Abnormal 0-2 [facility] Comment on above: Performed By: #### E RUR, PREGU, UMICRO #### [facility] [address] [address] [address] Monserrat Chu TRIPLE PHOS CRYSTALS RARE Normal [facility] Comment on above: Performed By: #### E RUR, PREGU, UMICRO #### [facility] [address] [address] [address] Monserrat Chu WBC 20-50 Abnormal NONE SEEN [facility] Comment on above: Performed By: #### Radha KEVAN ZUÑIGA UMICRO #### [facility] [id number] Monserrat Chu XR FINGER MIN 2 VIEWSon 12-17 XR FINGER MIN 2 VIEWS EXAM: XR FINGER [place] N 2 VIEWS HISTORY: Pain in finger COMPARISON: None. TECHNIQUE: 3 views of the left middle finger are performed. FINDINGS: There is no acute fracture. The bony structures are intact. Joint spaces are maintained. Unremarkable soft tissues. IMPRESSION: No acute bony abnormality. Electronically authenticated by: JOSE PADILLA Date: 2023-01-14 21:21 Normal [facility] CULTURE URINEon 01-05-2023 CULTURE URINE Isolate 1 Enterococcus faecalis 100,000 cfu/mL of Isolate 2 Streptococcus agalactiae 50,000 cfu/mL of ORGANISM 1 Enterococcus faecalis ANTIBIOTIC M.I.C RX STATUS Beta-Lactamase Neg NEG F Benzylpenicillin 2 S F Ampicillin <=2 S F Gentamicin High Level (synergy) SYN-R R F Streptomycin High Level (synergy) SYN-S S F Ciprofloxacin <=0.5 S F Levofloxacin 0.5 S F Quinupristin/Dalfopris tin 4 R F Linezolid 1 S F [...] F Tetracycline <=0.25 S F Normal [facility] Comment on above: Performed By: #### KEVAN BERMEO UMICRO #### [facility] [address] [address] [address] Monserrat Chu AMYLASEon 01-03-2023 Amylase [Catalytic activity/Vol] 56 U/L Normal 25-115 [facility] Comment on above: Performed By: #### A MY, LIPA, CMP #### [facility] [address] [place] [address] Dr. Monserrat Chu CBC AUTO DIFFon 01-03-2023 BASO # 0.1 103/ul Normal 0.0-0.1 [facility] Comment on above: Performed By: #### KEVAN BERMEO UMICRO #### [facility] [address] [place] [address] Dr. Monserrat Chu Basophils/100 WBC (Bld) 0.9 % Normal 0.2-2.0 [facility] Comment on above: Performed By: #### KEVAN BERMEO UMICRO #### [facility] [address] [place] [address] Dr. Monserrat hCu EO # 0.6 103/ul Normal 0.0-0.7 [facility] Comment on above: Performed By: #### KEVAN BERMEO UMICRO #### [facility] [address] [place] [address] Dr. Monserrat Chu Eosinophils/100 WBC (Bld) 7.1 % Critically high 0.9-7.0 [facility] Comment on above: Performed By: #### KEVAN BERMEO UMICRO #### [facility] [address] [place] [address] Dr. Monserrat Chu Erythrocyte distribution width (RBC) [Ratio] 12.6 % Normal 11.0-15.0 [facility] Comment on above: Performed By: #### KEVAN BERMEO, UMICRO #### [facility] [address] [place] [address] Dr. Monserrat Chu Hematocrit (Bld) [Volume fraction] 40.7 % Normal 36.0-48.0 [facility] Comment on above: Performed By: #### E RUDavon PREGU, UMICRO #### [facility] [address] [place] [address] Dr. Monserrat Chu Hemoglobin (Bld) [Mass/Vol] 13.5 g/dL Normal 12.0-16.0 [facility] Comment on above: Performed By: #### KEVAN BERMEO UMICRO #### [facility] [address] [place] [address] Dr. Monserrat Chu IG # 0.02 10e3/ul Normal 0.00-0.03 [facility] Comment on above: Performed By: #### KEVAN BERMEO UMICRO #### [facility] [address] [place] [address] Dr. Monserrat Chu IG % 0.2 % Normal 0.0-0.5 [facility] Comment on above: Performed By: #### KEVAN BERMEO UMICRO #### [facility] [address] [place] [address] Dr. Monserrat Chu LYMPH # 2.5 103/ul Normal 1.2-3.8 [facility] Comment on above: Performed By: #### KEVAN BERMEO UMICRO #### [facility] [address] [place] [address] Dr. Monserrat Chu Lymphocytes/100 WBC (Bld) 28.1 % Normal 20.5-60.0 [facility] Comment on above: Performed By: #### KEVAN BERMEO UMICRO #### [facility] [address] [place] [address] Dr. Monserrat Chu MANUAL DIFF REQ NO Normal [facility] Comment on above: Performed By: #### KEVAN BERMEO UMICRO #### [facility] [address] [place] [address] Dr. Monserrat Chu MCH (RBC) [Entitic mass] 29.5 pg Normal 26.7-34.0 [facility] Comment on above: Performed By: #### KEVAN BERMEO UMICRO #### [facility] [address] [place] [address] Dr. Monserrat Chu MCHC (RBC) [Mass/Vol] 33.2 g/dL Normal 29.9-35.2 [facility] Comment on above: Performed By: #### KEVAN BERMEO UMICRO #### [facility] [address] [address] [address] Monserrat Chu MCV (RBC) [Entitic vol] 89.1 fL Normal 81.0-99.0 [facility] Comment on above: Performed By: #### KEVAN BERMOE UMICRO #### [facility] [address] [place] [address] Dr. Monserrat Chu MONO # 0.6 103/ul Normal 0.3-0.8 [facility] Comment on above: Performed By: #### KEVAN BERMEO UMICRO #### [facility] [address] [place] [address] Dr. Monserrat Chu Monocytes/100 WBC (Bld) 6.4 % Normal 1.7-12.0 [facility] Comment on above: Performed By: #### KEVAN BERMEO UMICRO #### [facility] [address] [place] [address] Dr. Monserrat Chu NEUT # 5.0 103/ul Normal 1.4-6.5 [facility] Comment on above: Performed By: #### KEVAN BERMEO UMICRO #### [facility] [address] [place] [address] Dr. Monserrat Chu Neutrophils/100 WBC (Bld) 57.3 % Normal 43.0-75.0 [facility] Comment on above: Performed By: #### KEVAN BERMEO UMICRO #### [facility] [address] [place] [address] Dr. Monserrat Chu Platelet mean volume (Bld) [Entitic vol] 9.1 fL Critically low 9.5-13.5 [facility] Comment on above: Performed By: #### KEVAN BERMEO UMICRO #### [facility] [address] [place] [address] Dr. Monserrat Chu PLT 269 103/ul Normal 150-450 [facility] Comment on above: Performed By: #### KEVAN BERMEO UMICRO #### [facility] [address] [place], [place] [address] Dr. Monserrat Chu RBC 4.57 106/ul Normal 4.20-5.40 [facility] Comment on above: Performed By: #### E KEVAN ZUÑIGA UMICRO #### [facility] [address] [place], [place] [address] Dr. Monserrat Chu WBC 8.8 103/ul Normal 4.0-11.0 [facility] Comment on above: Performed By: #### E KEVAN ZUÑIGA UMICRO #### [facility] [address] [place], [place] [address] ABD/PELV W CONon [...] GAYATHRI WANG Date: 2023-01-03 03:16 Normal [facility] ER URINE PROFILEon 3 Bilirubin Ql (U) Negative Normal NEGATIVE [facility] Comment on above: Performed By: #### E KEVAN ZÑUIGA UMICRO #### [facility] [address] [address] [address] Monserrat Chu Clarity (U) CLEAR Normal CLEAR [facility] Comment on above: Performed By: #### E KEVAN ZUÑIGA UMICRO #### [facility] [address] [address] [address] Monserrat Chu Color (U) LT. YELLOW Normal YELLOW [facility] Comment on above: Performed By: #### E KEVAN ZUÑIGA UMICRO #### [facility] [address] [address] [address] Monserrat PROCTOR A micrscopic examination will be performed if indicated. Normal [facility] Comment on above: Performed By: #### E RUR PREGU, UMICRO #### [facility] [address] [place] [address] Dr. Monserrat Chu Glucose Ql (U) Negative Normal NEGATIVE [facility] Comment on above: Performed By: #### E RUR PREGU, UMICRO #### [facility] [address] [place] [address] Dr. Monserrat Chu Hemoglobin Ql (U) MODERATE Abnormal NEGATIVE [facility] Comment on above: Performed By: #### E RUR PREGU, UMICRO #### [facility] [address] [place] [address] Dr. Monserrat Chu Ketones Ql (U) Negative Normal NEGATIVE [facility] Comment on above: Performed By: #### E RUR PREGU, UMICRO #### [facility] [address] [place] [address] Dr. Monserrat Chu LEUKOCYTES SMALL Abnormal NEGATIVE [facility] Comment on above: Performed By: #### E RUR PREGU, UMICRO #### [facility] [address] [place] [address] Dr. Monserrat Chu Nitrite Ql (U) Positive Abnormal NEGATIVE [facility] Comment on above: Performed By: #### E RUR PREGU, UMICRO #### [facility] [address] [place] [address] Dr. Monserrat Chu pH (U) 8.5 [pH] Normal 5-9 [facility] Comment on above: Performed By: #### E RUR PREGU, UMICRO #### [facility] [address] [place] [address] Dr. Monserrat Chu Protein (U) [Mass/Vol] 100 mg/dL Abnormal NEGATIVE/ TRACE [facility] Comment on above: Performed By: #### E RUR, PREGU, UMICRO #### [facility] [address] [place] [address] Dr. Monserrat Chu SPEC GRAVITY 1.010 Normal 1.005-<=1.025 [facility] Comment on above: Performed By: #### E RUR PREGU, UMICRO #### [facility] [facility] [address] [place] [address] Dr. Monserrat Chu UR MICRO IND INDICATED Normal [facility] Comment on above: Performed By: #### Radha RUR PREGU, UMICRO #### [facility] [address] [place] [address] Dr. Monserrat Chu Urobilinogen Qn (U) 0.2 {Sanjuana'U}/dL Normal 0.2 - 1. 0 [facility] Comment on above: Performed By: #### Radha ZUÑIGA PREGU UMICRO #### [facility] [address] [place] [address] Dr. Monserrat Chu LACTATE/LACTIC ACIDon 2022 Lactate [Moles/Vol] 0.8 mmol/L Normal 0.4-2.0 [facility] Comment on above: Performed By: #### RAFAEL BERMEOU UMICRO #### [facility] [address] [place] [address] Dr. Monserrat Chu LIPASEon 01-03-2023 Lipase [Catalytic activity/Vol] 101.0 U/L Normal 73.0-393.0 [facility] Comment on above: Performed By: #### A MY, LIPA, CMP #### [facility] [address] [place] [address] Dr. Monserrat Chu URon 01-03-2023 , QUAL Negative Normal NEGATIVE [facility] Comment on above: Performed By: #### E YOGESH PREGU, UMICRO #### [facility] [address] [place] [address] Dr. Monserrat Chu PROF 14(COMP METB)on 023 Albumin [Mass/Vol] 4.0 g/dL Normal 3.4-5.0 [facility] Comment on above: Performed By: #### A MY, LIPA, CMP #### [facility] [address] [place] [address] Dr. Monserrat Chu Albumin/Globulin [Mass ratio] 1.3 {ratio} Normal [facility] Comment on above: Performed By: #### A MY LIPA, CMP #### [facility] [address] [address] [address] Monserrat Chu ALP [Catalytic activity/Vol] 114 U/L Normal 46-116 [facility] Comment on above: Performed By: #### A MY LIPA, CMP #### [facility] [address] [address] [address] Monserrat Chu ALT [Catalytic activity/Vol] 17 U/L Normal 14-59 [facility] Comment on above: Performed By: #### A MY LIPA, CMP #### [facility] [address] [place] [address] Dr. Monserrat Chu Anion gap [Moles/Vol] 11.3 mmol/L Normal [facility] Comment on above: Performed By: #### A MY LIPA, CMP #### [facility] [address] [place] [address] Dr. Monserrat Chu AST [Catalytic activity/Vol] 18 U/L Normal 15-37 [facility] Comment on above: Performed By: #### A ANTWON LIPA, CMP #### [facility] [address] [place] [address] Dr. Monserrat Chu Bilirubin [Mass/Vol] 0.2 mg/dL Normal 0.2-1.0 [facility] Comment on above: Performed By: #### A MY, LIPA, CMP #### [facility] [address] [place] [address] Dr. Monserrat Chu Calcium [Mass/Vol] 8.9 mg/dL Normal 8.5-10.1 [facility] Comment on above: Performed By: #### A MY LIPA, CMP #### [facility] [address] [place] [address] Dr. Monserrat Chu Chloride [Moles/Vol] 105 mmol/L Normal 98-107 [facility] Comment on above: Performed By: #### A MY, LIPA, CMP #### [facility] [address] [address] [address] Monserrat Chu CO2 [Moles/Vol] 27.0 mmol/L Normal 21.0-32.0 [facility] Comment on above: Performed By: #### A MY, LIPA, CMP #### [facility] [address] [address] [address] Monserrat Chu Creatinine [Mass/Vol] 1.07 mg/dL Critically high 0.55-1.02 [facility] Comment on above: Performed By: #### A MY, LIPA, CMP #### [facility] [address] [address] [address] Monserrat Chu EGFR-AF [place] >60 Normal >=60 [facility] Comment on above: Performed By: #### A MY, LIPA, CMP #### [facility] [address] [place] [address] Dr. Monserrat Chu EGFR-NON AF [place] >60 Normal >=60 [facility] Comment on above: Performed By: #### A MY, LIPA, CMP #### [facility] [address] [address] [address] Monserrat Cuh Globulin (S) [Mass/Vol] 3.2 g/dL Normal [facility] Comment on above: Performed By: #### A ANTWON, LIPA, CMP #### [facility] [address] [address] [address] Monserrat Chu Glucose [Mass/Vol] 103 mg/dL Normal 74-106 [facility] Comment on above: Performed By: #### A MY, LIPA, CMP #### [facility] [address] [address] [address] Monserrat Chu Potassium [Moles/Vol] 4.3 mmol/L Normal 3.5-5.1 [facility] Comment on above: Performed By: #### A MY, LIPA, CMP #### [facility] [address] [address] [address] Monserrat Chu Protein [Mass/Vol] 7.2 g/dL Normal 6.4-8.2 [facility] Comment on above: Performed By: #### A ANTWON LIPA, CMP #### [facility] [address] [address] [address] Monserrat Chu Sodium [Moles/Vol] 139 mmol/L Normal 136-145 [facility] Comment on above: Performed By: #### A ANTWON LIPA, CMP #### [facility] [address] [place] [address] Dr. Monserrat Chu Urea nitrogen [Mass/Vol] 19.0 mg/dL Critically high 7.0-18.0 [facility] Comment on above: Performed By: #### A ANTWON LIPA, CMP #### [facility] [address] [place] [address] Dr. Monserrat Chu Urea nitrogen/Creatinine [Mass ratio] 17.8 mg/mg Normal [facility] Comment on above: Performed By: #### A ANTWON LIPA, CMP #### [facility] [address] [place] [address] Dr. Monserrat Chu URINE MICROSCOPIC ONLYon BACTERIA TRACE Abnormal NONE SEEN [facility] Comment on above: Performed By: #### E RUR, PREGU, UMICRO #### [facility] [address] [place] [address] Dr. Monserrat Chu Bacteria identified Cx Nom (U) INDICATED Normal [facility] Comment on above: Performed By: #### E RUR, PREGU, UMICRO #### [facility] [address] [place] [address] Dr. Monserrat Chu CAST NONE SEEN Normal NONE SEEN [facility] Comment on above: Performed By: #### E RUR, PREGU, UMICRO #### [facility] [address] [place] [address] Dr. Monserrat Chu Crystals LM Nom (Urine sed) NONE SEEN Normal NONE SEEN [facility] Comment on above: Performed By: #### E RUR, PREGU, UMICRO #### [facility] [address] [place] [address] Dr. Monserrat Chu Epithelial cells LM Ql (Urine sed) FEW Abnormal NONE SEEN /RARE [facility] Comment on above: Performed By: #### E RUR, PREGU, UMICRO #### [facility] [address] [address] [address] Monserrat Chu MUCOUS NONE SEEN Normal NONE SEEN [facility] Comment on above: Performed By: #### E RUR, PREGU, UMICRO #### [facility] [address] [address] [address] Monserrat Chu RBC 2-5 Abnormal 0-2 [facility] Comment on above: Performed By: #### E RUR, PREGU, UMICRO #### [facility] [address] [address] [address] Monserrat Chu TRIPLE PHOS CRYSTALS FEW Normal [facility] Comment on above: Performed By: #### E RUR, PREGU, UMICRO #### [facility] [address] [address] [address] Monserrat Chu WBC 20-50 Abnormal NONE SEEN [facility] Comment on above: Performed By: #### E RUR, PREGU, UMICRO #### [facility] [address] [address] [address] Monserrat Chu Cult,Urineon 06-07-2022 Cult,Urine Specimen Description .CLEAN CATCH URINE Culture NO SIGNIFICANT GROWTH Report Status FINAL 06/07/2022 Normal [facility] Comment on above: Performed By: #### L IP, BHCG, CDP, PT, LIVP, BMP #### [facility] [address] [place] [address] [employer]: Rashad Mckinney DO Basic Metabolic Panelon -2 Anion gap [Moles/Vol] 12 mmol/L 9 - 17 mmol/L [facility] Calcium [Mass/Vol] 10.1 mg/dL 8.6 - 10. 4 mg/dL [facility] Chloride [Moles/Vol] 103 mmol/L 98 - 107 mmol/L [facility] CO2 [Moles/Vol] 26 mmol/L 20 - 31 mmol/L [facility] Creatinine [Mass/Vol] 1.09 mg/dL High 0.5 - 0.9 mg/d L [facility] [employer] GFR Non- Pediatric GFR requires additional information. Refer to NKDEP website for calculator. 60 - PINF mL/min [facility] GFR/1.73 sq M.predicted MDRD (S/P/Bld) [Vol rate/Area] [facility] Comment on above: Average GFR for <20 years old not available. Chronic Kidney Disease: <60 mL/min/1.73sq m Kidney failure: <15 mL/min/1.73sq m eGFR calculated using average adult body mass. Additional eGFR calculator available at: http://www.[employer]/multiple_crcl_2012.htm Glucose [Mass/Vol] 86 mg/dL 70 - 99 mg/dL [facility] Potassium [Moles/Vol] 4.2 mmol/L 3.7 - 5.3 mmol/L [facility] Sodium [Moles/Vol] 141 mmol/L 135 - 144 mmol/L [facility] Urea nitrogen (BldV) [Mass/Vol] 22 mg/dL High 6 - 20 mg/dL [facility] Basic Metabolic Profon 06-06 (cont.) Normal [facility] Comment on above: Result Comment: Aver age GFR for <20 years old not available. Chronic Kidney Disease: <60 mL/min/1.73sq m Kidney failure: <15 mL/min/1.73sq m eGFR calculated using average adult body mass. Additional eGFR calculator available at: http://www.[employer] Tr[employer]/multiple_crcl_2011.htm Performed By: #### L IP, BHCG, CDP, PT, LIVP, BMP #### [facility] [address] [place] [address] [employer]: Rashad Mckinney DO Anion gap [Moles/Vol] 12 mmol/L Normal 9-17 [facility] Comment on above: Performed By: #### L IP, BHCG, CDP, PT, LIVP, BMP #### [facility] [address] [place] [address] [employer]: Rashad Mckinney DO Calcium [Mass/Vol] 10.1 mg/dL Normal 8.6-10.4 [facility] Comment on above: Performed By: #### L IP, BHCG, CDP, PT, LIVP, BMP #### [facility] [address] [place] [address] [employer]: Rashad Mckinney DO Chloride [Moles/Vol] 103 mmol/L Normal 98-107 [facility] Comment on above: Performed By: #### L IP, BHCG, CDP, PT, LIVP, BMP #### [facility] [place] [address] [employer]: Rashad Mckinney DO CO2 [Moles/Vol] 26 mmol/L Normal 20-31 [facility] Comment on above: Performed By: #### L IP, BHCG, CDP, PT, LIVP, BMP #### [facility] [place] [address] [employer]: Rashad Mckinney DO Creatinine [Mass/Vol] 1.09 mg/dL High 0.50-0.90 [facility] Comment on above: Performed By: #### L IP, BHCG, CDP, PT, LIVP, BMP #### [facility] [address] [place] [address] [employer]: Rashad Mckinney DO GFR,non Amer Pediatric GFR requi res additional information. Refer to NKDEP website for Normal >60 [facility] Comment on above: Result Comment: calc ulator. Performed By: #### L IP, BHCG, CDP, PT, LIVP, BMP #### [facility] [address] [place] [address] [employer]: Rashad Mckinney DO Glucose [Mass/Vol] 86 mg/dL Normal 70-99 [facility] Comment on above: Performed By: #### L IP, BHCG, CDP, PT, LIVP, BMP #### [facility] [address] [place] [address] [employer]: Rashad Mckinney DO Potassium [Moles/Vol] 4.2 mmol/L Normal 3.7-5.3 [facility] Comment on above: Performed By: #### L IP, BHCG, CDP, PT, LIVP, BMP #### [facility] [address] [place] [address] [employer]: Rashad Mckinney DO Sodium [Moles/Vol] 141 mmol/L Normal 135-144 [facility] Comment on above: Performed By: #### L IP, BHCG, CDP, PT, LIVP, BMP #### [facility] [address] [place] [address] [employer]: Rashad Mckinney DO Urea nitrogen [Mass/Vol] 22 mg/dL High 6-20 [facility] Comment on above: Performed By: #### L IP, BHCG, CDP, PT, LIVP, BMP #### [facility] [address] [place] [address] [employer]: Rashad Mckinney DO CBC with Auto Differentialon 06-06-2022 Absolute Eos # 0.10 [facility] Absolute Lymph # 2.10 [facility] Absolute [place] # 0.40 [facility] Basophils (Bld) [#/Vol] 0.00 10*3/uL [facility] Basophils/100 WBC (Bld) 1 % 0 - 2 % [facility] Eosinophils/100 WBC (Bld) 2 % 0 - 4 % [facility] Hematocrit (Bld) [Volume fraction] 41.3 % 36 - 46 % [facility] Hemoglobin (Bld) [Mass/Vol] 13.8 g/dL 12 - 16 g/dL [facility] Lymphocytes/100 WBC (Bld) 30 % 25 - 45 % [facility] MCH (RBC) [Entitic mass] 29.9 pg 26 - [address] [facility] MCHC (RBC) [Mass/Vol] 33.3 g/dL 31 - 37 g/dL B [facility] MCV (RBC) [Entitic vol] 89.6 fL 80 - [address] [facility] Monocytes/100 WBC (Bld) 6 % 2 - 8 % [facility] Platelet distribution width (Bld) [Ratio] 13.0 % 11.5 - 14.9 % [facility] Platelet mean volume (Bld) [Entitic vol] 7.2 fL 6 - [address] [facility] Platelets (Bld) [#/Vol] 272 10*3/uL [facility] RBC (Bld) [#/Vol] 4.61 10*6/uL 4 - 5.2 m/uL [facility] Segmented neutrophils/100 WBC (Bld) 61 % 34 - 64 % [facility] Segs Absolute 4.[address] [facility] WBC (Bld) [#/Vol] 7.0 10*3/uL [facility] CBC with Diffon 06-06-2022 Abs. Basophil 0.00 k/uL Normal 0.0-0.2 [facility] Comment on above: Performed By: #### L IP, BHCG, CDP, PT, LIVP, BMP #### [facility] [address] [facility] [place] [address] [employer]: Rashad Mckinney DO Abs.Neutrophil (Seg) 4.40 k/uL Normal 1.3-9.1 [facility] Comment on above: Performed By: #### L IP, BHCG, CDP, PT, LIVP, BMP #### [facility] [address] [place] [address] [employer]: Rashad Mckinney DO Basophils/100 WBC (Bld) 1 % Normal 0-2 [facility] Comment on above: Performed By: #### L IP, BHCG, CDP, PT, LIVP, BMP #### [facility] [address] [place] [address] [employer]: Rashad Mckinney DO Eosinophils (Bld) [#/Vol] 0.10 10*3/uL Normal 0.0-0.4 [facility] Comment on above: Performed By: #### L IP, BHCG, CDP, PT, LIVP, BMP #### [facility] [address] [place] [address] [employer]: Rashad Mckinney DO Eosinophils/100 WBC (Bld) 2 % Normal 0-4 [facility] Comment on above: Performed By: #### L IP, BHCG, CDP, PT, LIVP, BMP #### [facility] [address] [place] [address] [employer]: Rashad Mckinney DO Erythrocyte distribution width (RBC) [Ratio] 13.0 % Normal 11.5-14.9 [facility] Comment on above: Performed By: #### L IP, BHCG, CDP, PT, LIVP, BMP #### [facility] [place] [address] [employer]: Rashad Mckinney DO Hematocrit (Bld) [Volume fraction] 41.3 % Normal 36-46 [facility] Comment on above: Performed By: #### L IP, BHCG, CDP, PT, LIVP, BMP #### [facility] [place] [address] [employer]: Rashad Mckinney DO Hemoglobin (Bld) [Mass/Vol] 13.8 g/dL Normal 12.0-16.0 [facility] Comment on above: Performed By: #### L IP, BHCG, CDP, PT, LIVP, BMP #### [facility] [address] [facility] [place] [address] [employer]: Rashad Mckinney DO Lymphocytes (Bld) [#/Vol] 2.10 10*3/uL Normal 1.2-5.2 [facility] Comment on above: Performed By: #### L IP, BHCG, CDP, PT, LIVP, BMP #### [facility] [address] [facility] [place] [address] [employer]: Rashad Mckinney DO Lymphocytes/100 WBC (Bld) 30 % Normal 25-45 [facility] Comment on above: Performed By: #### L IP, BHCG, CDP, PT, LIVP, BMP #### [facility] [address] [place] [address] [employer]: Rashad Mckinney DO MCH (RBC) [Entitic mass] 29.9 pg Normal 26-34 [facility] Comment on above: Performed By: #### L IP, BHCG, CDP, PT, LIVP, BMP #### [facility] [address] [place] [address]. [place] [address] [employer]: Rasahd Mckinney DO MCHC (RBC) [Mass/Vol] 33.3 g/dL Normal 31-37 [facility] Comment on above: Performed By: #### L IP, BHCG, CDP, PT, LIVP, BMP #### [facility] [place] [address] [employer]: Rashad Mckinney DO MCV (RBC) [Entitic vol] 89.6 fL Normal 80-100 [facility] Comment on above: Performed By: #### L IP, BHCG, CDP, PT, LIVP, BMP #### [facility] [address] [place], [place] [address] [place] [address] [employer]: Rashad Mckinney DO Monocytes (Bld) [#/Vol] 0.40 10*3/uL Normal 0.1-1.3 [facility] Comment on above: Performed By: #### L IP, BHCG, CDP, PT, LIVP, BMP #### [facility] [address] [place] [address] [employer]: Rashad Mckinney DO Monocytes/100 WBC (Bld) 6 % Normal 2-8 [facility] Comment on above: Performed By: #### L IP, BHCG, CDP, PT, LIVP, BMP #### [facility] [place] [address] [employer]: Rashad Mckinney DO Neutrophil (Seg) 61 % Normal 34-64 [facility] Comment on above: Performed By: #### L IP, BHCG, CDP, PT, LIVP, BMP #### [facility] [facility] [place] [address] [employer]: Rashad Mckinney DO Platelet mean volume (Bld) [Entitic vol] 7.2 fL Normal 6.0-12.0 [facility] Comment on above: Performed By: #### L IP, BHCG, CDP, PT, LIVP, BMP #### [facility] [address] [place] [address] [employer]: Rashad Mciknney DO Platelets (Bld) [#/Vol] 272 10*3/uL Normal 150-450 [facility] Comment on above: Performed By: #### L IP, BHCG, CDP, PT, LIVP, BMP #### [facility] [address] [place] [address] [employer]: Rashad Mckinney DO RBC (Bld) [#/Vol] 4.61 10*6/uL Normal 4.0-5.2 [facility] Comment on above: Performed By: #### L IP, BHCG, CDP, PT, LIVP, BMP #### [facility] [address] [facility] [place] [address] [employer]: Rashad Mckinney DO WBC (Bld) [#/Vol] 7.0 10*3/uL Normal 4.5-13.5 [facility] Comment on above: Performed By: #### L IP, BHCG, CDP, PT, LIVP, BMP #### [facility] [address] [facility] [place] [address] [employer]: Rashad Mckinney DO HCG, ,Urineon 06-06 Beta HCG ( test) Ql (U) Negative Normal NEG [facility] Comment on above: Result Comment: Spec imens [...] By: #### U HCG, UAX, UMICAO #### [facility] [address] [facility] [place] [address] [employer]: Rashad Mckinney DO Beta HCG ( test) Ql (U) Negative NEGATIVE [facility] Comment on above: Specimens with hCG l evels near the threshold of the test (25 mIU/mL) may give a negative or indeterminate result. In such cases, another test should be performed with a new specimen in 48-72 hours. If early is suspected clinically in this setting, correlation with quantitative serum b-hCG level is suggested. [facility] HCG, Quanton 06-06-2022 HCG, Quant <1 Normal <5 [facility] Comment on above: Result Comment: Non-preg premeno <=5 Postmeno <=8 Male <=3 If HCG results do not concur with clinical observations, additional testing to confirm results is recommended. Performed By: #### L IP, BHCG, CDP, PT, LIVP, BMP #### [facility] [address] [place] [address] [employer]: Rashad Mckinney DO HCG, Quantitative, on 06-06-2022 hCG Quant NINF [facility] Comment on above: Non-preg premeno <=5 Postmeno <=8 Male <=3 If HCG results do not concur with clinical observations, additional testing to confirm results is recommended. [facility] Hepatic Function Panelon Albumin [Mass/Vol] 5.1 g/dL 3.5 - 5.2 g/dL [facility] ALP (Bld) [Catalytic activity/Vol] 118 U/L High 35 - 104 U/L [facility] ALT [Catalytic activity/Vol] 14 U/L 5 - 33 U/L [facility] AST [Catalytic activity/Vol] 20 U/L NINF - 32 U/L [facility] Bilirubin [Mass/Vol] 0.20 mg/dL Low 0.3 - 1.2 mg/dL [facility] Bilirubin, Indirect Can not be calculated 0 - 1 mg/dL [facility] Bilirubin.indirect [Mass/Vol] mg/dL [facility] mg/dL [facility] Free PSA/Total PSA [Mass fraction] 7.6 g/dL 6.4 - 8.3 g/dL [facility] Lipaseon 06-06-2022 Lipase [Catalytic activity/Vol] 28 U/L Normal 13-60 [facility] Comment on above: Performed By: #### L IP, BHCG, CDP, PT, LIVP, BMP #### [facility] [address] [place], [place] [id number] [employer]: Rashad Mckinney, Lipase [Catalytic activity/Vol] 28 U/L 13 - 60 U/L [facility] Liver Profileon 06-06-2022 Albumin [Mass/Vol] 5.1 g/dL Normal 3.5-5.2 [facility] Comment on above: Performed By: #### L IP, BHCG, CDP, PT, LIVP, BMP #### [facility] [address] [place] [address] [employer]: Rashad Mckinney DO Alkaline Phos 118 U/L High 35-104 [facility] Comment on above: Performed By: #### L IP, BHCG, CDP, PT, LIVP, BMP #### [facility] [address] [place] [address] [employer]: Rashad Mckinney DO ALT [Catalytic activity/Vol] 14 U/L Normal 5-33 [facility] Comment on above: Performed By: #### L IP, BHCG, CDP, PT, LIVP, BMP #### [facility] [address] [facility] [place] [address] [employer]: Rashad Mckinney DO AST [Catalytic activity/Vol] 20 U/L Normal <32 [facility] Comment on above: Performed By: #### L IP, BHCG, CDP, PT, LIVP, BMP #### [facility] [address] [place] [address] [employer]: Rashad Mckinney DO Bilirubin [Mass/Vol] 0.20 mg/dL Low 0.3-1.2 [facility] Comment on above: Performed By: #### L IP, BHCG, CDP, PT, LIVP, BMP #### [facility] [address] [facility] [place] [address] [employer]: Rashad Mckinney DO Bilirubin, Indirect Can not be calculated Normal 0.00- 1.00 [facility] Comment on above: Performed By: #### L IP, BHCG, CDP, PT, LIVP, BMP #### [facility] [address] [place] [address] [employer]: Rashad Mckinney DO Bilirubin.indirect [Mass/Vol] mg/dL Normal <0.31 [facility] Comment on above: Performed By: #### L IP, BHCG, CDP, PT, LIVP, BMP #### [facility] [address] [place] [address] [employer]: Rashad Mckinney DO Protein [Mass/Vol] 7.6 g/dL Normal 6.4-8.3 [facility] Comment on above: Performed By: #### L IP, BHCG, CDP, PT, LIVP, BMP #### [facility] [address] [place] [address] [employer]: Rashad Mckinney DO Microscopic Urinalysison Bacteria, UA FEW Abnormal None [facility] Casts UA 3 to 5 /LPF [facility] Epithelial Cells UA 0 TO 2 /HPF [facility] Interpretation and review of laboratory results Abnormal [facility] RBC, UA TOO NUMEROUS TO COUNT /HPF [facility] WBC, UA 10 TO 20 /HPF [facility] No Panel Informationon 06-06 Interpretation and review of laboratory results Abnormal [facility] PTon 06-06-2022 INR Coag (PPP) [Relative time] 0.9 {INR} Normal [facility] Comment on above: Result Comment: Non-therapeutic Range: INR = 0.9-1.2 Therapeutic Range: Moderate Anticoagulant Intensity: INR = 2.0-3.0 High Anticoagulant Intensity: INR = 2.5-3.5 Performed By: #### L IP, BHCG, CDP, PT, LIVP, BMP #### [facility] [address] [place] [address] [employer]: Rashad Mckinney DO PT Coag (PPP) [Time] 12.3 s Normal 11.8-14.6 [facility] Comment on above: Performed By: #### L IP, BHCG, CDP, PT, LIVP, BMP #### [facility] [address] [place] [address] [employer]: Rashad Mckinney DO Protime-INRon 06-06-2022 INR Coag (Bld) [Relative time] 0.9 {INR} [facility] Comment on above: Non-therapeutic Range: INR = 0.9-1.2 Therapeutic Range: Moderate Anticoagulant Intensity: INR = 2.0-3.0 High Anticoagulant Intensity: INR = 2.5-3.5 PT Coag (PPP) [Time] 12.3 s [facility] TYPE AND SCREENon 06-06-2022 ABO/Rh Positive [facility] Arm Band Number [id number] [facility] Expiration Date 06/09/2022,2359 [facility] Type + Screenon 06-06-2022 Type + Screen Sample Expiration 06/09/2022,2359 Arm Band Number [id number] ABO/Rh(D) A POSITIVE Antibody Screen NEGATIVE Normal [facility] Comment on above: Performed By: #### T YS #### [facility] [address] [place] [address] [employer]: Rashad Mckinney DO UA w/Reflex Cultureon 2021 Bilirubin, SemiQt,Ur Negative Normal NEG [facility] Comment on above: Performed By: #### U HCG, UAX, UMICAO #### [facility] [address] [place] [address] [employer]: Rashad Mckinney DO Blood, Urine LARGE Abnormal NEG [facility] Comment on above: Performed By: #### U HCG, UAX, UMICAO #### [facility] [address] [place] [address] [employer]: Rashad Mckinney DO Clarity (U) Cloudy Abnormal CLEAR [facility] Comment on above: Performed By: #### U HCG, UAX, UMICAO #### [facility] [place] [address] [employer]: Rashad Mckinney DO Color (U) Yellow Normal YEL [facility] Comment on above: Performed By: #### U HCG, UAX, UMICAO #### [facility] [address] [place] [address] [employer]: Rashad Mckinney DO Glucose Ql (U) Negative Normal NEG [facility] Comment on above: Performed By: #### U HCG, UAX, UMICAO #### [facility] [address] [place] [address] [employer]: Rashad Mckinney DO Ketones Ql (U) Negative Normal NEG [facility] Comment on above: Performed By: #### U HCG, UAX, UMICAO #### [facility] [address] [place] [address]. [place] [address] [employer]: Rashad Mckinney DO Leukocyte esterase Test strip Ql (U) SMALL Abnormal NEG [facility] Comment on above: Performed By: #### U HCG, UAX, UMICAO #### [facility] [address] [place] [address] [employer]: Rashad Mckinney DO Nitrite,Ur Negative Normal NEG [facility] Comment on above: Performed By: #### U HCG, UAX, UMICAO #### [facility] [address] [place] [address] [employer]: Rashad Mckinney DO PH,Ur 7.5 Normal 5.0-8.0 [facility] Comment on above: Performed By: #### U HCG, UAX, UMICAO #### [facility] [address] [facility] [place] [address] [employer]: Rashad Mckinney DO Protein Ql (U) 3+ Abnormal NEG [facility] Comment on above: Performed By: #### U HCG, UAX, UMICAO #### [facility] [address] [facility] [place] [address] [employer]: Rashad Mckinney DO Spec. [place],Ur 1.012 Normal 1.000-1.030 [facility] Comment on above: Performed By: #### U HCG, UAX, UMICAO #### [facility] [address] [facility] [place] [address] [employer]: Rashad Mckinney DO Urobilinogen,Ur Normal Normal NORM [facility] Comment on above: Performed By: #### U HCG, UAX, UMICAO #### [facility] [address] [facility] [place] [address] [employer]: Rashad Mckinney DO Urinalysis with Reflex to Cu ltureon 06-06-2022 Bilirubin Urine Negative NEGATIVE [facility] Color, UA Yellow Yellow [facility] Glucose, Ur Negative NEGATIVE [facility] Interpretation and review of laboratory results Abnormal [facility] Ketones Ql (U) Negative NEGATIVE [facility] Leukocyte esterase Test strip Ql (U) SMALL Abnormal NEGATIVE [facility] Nitrite, Urine Negative NEGATIVE [facility] pH, UA 7.5 5 - [address] [facility] Protein, UA 3+ Abnormal NEGATIVE [facility] Specific [place], UA 1.012 1 - 1.[address] [facility] Turbidity UA Cloudy Abnormal Clear [facility] Urine Hgb LARGE Abnormal NEGATIVE [facility] Urobilinogen, Urine Normal Normal [facility] Urinalysis,Microon 2 Bacteria FEW Abnormal NONE [facility] Comment on above: Performed By: #### U HCG, UAX, UMICAO #### [facility] [address] [facility] [place] [address] [employer]: Rashad Mckinney DO Casts 3 to 5 Normal [facility] Comment on above: Performed By: #### U HCG, UAX, UMICAO #### [facility] [address] [place] [address] [employer]: Rashad Mckinney DO Epithelial cells LM Ql (Urine sed) 0 TO 2 Normal [facility] Comment on above: Performed By: #### U HCG, UAX, UMICAO #### [facility] [address] [facility] [place] [address] [employer]: Rashad Mckinney DO Urine RBC's TOO NUMEROUS TO COUNT Normal [facility] Comment on above: Performed By: #### U HCG, UAX, UMICAO #### [facility] [address] [place] [address] [employer]: Rashad Mckinney DO Urine WBC's 10 TO 20 Normal [facility] Comment on above: Performed By: #### U HCG, UAX, UMICAO #### [facility] [address] [place] [address] [employer]: Rashad Mckinney DO ALBUMIN BLOODon 05-06-2022 Albumin [Mass/Vol] 4.8 g/dL Normal 3.5-5.7 [facility] Comment on above: Performed By: #### 3 1550, 61629, 07067, 49084, 20955, 92773 #### [facility] [address] [place] [address], [facility] BASIC METABOLIC PANELon 07-2 1-2022 Calcium [Mass/Vol] 9.6 mg/dL Normal 8.6-10.3 [facility] Comment on above: Performed By: #### 3 1550, 40859, 26128, 25984, 01654, 64842 #### [facility] [address] [place] [address], [place] Chloride [Moles/Vol] 107 mmol/L Normal 98-107 [facility] Comment on above: Performed By: #### 3 1550, 16720, 03850, 24075, 94356, 17488 #### [facility] [address] [place] [address], [place] CO2 [Moles/Vol] 21 mmol/L Normal 21-31 [facility] Comment on above: Performed By: #### 3 1550, 65793, 24404, 78916, 55111, 78572 #### [facility] [address] [place] [address], [place] Creatinine [Mass/Vol] 1.33 mg/dL High 0.60-1.20 [facility] Comment on above: Performed By: #### 3 1550, 95045, 58341, 81741, 45288, 88858 #### [facility] [address] [place] [address], [place] eGFR- non- 51 ml/min/1.73sq m Abnormal >60 [facility] Comment on above: Performed By: #### 3 1550, 05828, 35677, 36589, 14190, 03729 #### [facility] [address] [place] [address], [place] GFR/1.73 sq M.predicted among blacks MDRD (S/P/Bld) [Vol rate/Area] mL/min/{1.73_m2} Normal >60 [facility] Comment on above: Performed By: #### 3 1550, 08305, 82811, 66294, 00915, 63435 #### [facility] [address] [place] [address], [place] Glucose [Mass/Vol] 50 mg/dL Low 70-100 [facility] Comment on above: Performed By: #### 3 1550, 12975, 95857, 34895, 83161, 41950 #### [facility] [address] [place] [address], [place] Potassium [Moles/Vol] 4.6 mmol/L Normal 3.5-5.1 [facility] Comment on above: Performed By: #### 3 1550, 00390, 88785, 52311, 15825, 73828 #### [facility] [address] [place] [address], [place] Sodium [Moles/Vol] 140 mmol/L Normal 136-145 [facility] Comment on above: Performed By: #### 3 1550, 64582, 61191, 07731, 45147, 26443 #### [facility] [address] [place] [address], [place] Urea nitrogen [Mass/Vol] 21 mg/dL Normal 7-25 [facility] Comment on above: Performed By: #### 3 1550, 84776, 12802, 33662, 26635, 56943 #### [facility] [address] [place] [address], [place] CBC COMPLETE BLOOD COUNTon 0 7- Erythrocyte distribution width (RBC) [Ratio] 12.7 % Normal 11.5-15.0 [facility] Comment on above: Performed By: #### 5 0608 #### [facility] [address] [place] [address], [place] Hematocrit (Bld) [Volume fraction] 41.8 % Normal 36.0-45.0 [facility] Comment on above: Performed By: #### 5 0608 #### [facility] [address] [place] [address], [place] Hemoglobin (Bld) [Mass/Vol] 13.6 g/dL Normal 12.0-15.0 [facility] Comment on above: Performed By: #### 5 0608 #### [facility] [address] [facility] [place] [address], [facility] MCH (RBC) [Entitic mass] 29.4 pg Normal 27.0-33.0 [facility] Comment on above: Performed By: #### 5 0608 #### [facility] [address] [facility]. [address] MCHC (RBC) [Mass/Vol] 32.5 g/dL Normal 32.0-35.0 [facility] Comment on above: Performed By: #### 5 0608 #### [facility] [address] [facility] [place] [address], [facility] MCV (RBC) [Entitic vol] 90.5 fL Normal 82.0-98.0 [facility] Comment on above: Performed By: #### 5 0608 #### [facility] [address] Nucleated RBC/100 WBC (Bld) [Ratio] 0 % Normal 0-0 [facility] Comment on above: Performed By: #### 5 0608 #### [facility] [address] [place] [address], [facility] PLAT CNT 263 10*3/uL Normal 150-400 [facility] Comment on above: Performed By: #### 5 0608 #### [facility] [address] [facility] [place] [address], [facility] RBC (Bld) [#/Vol] 4.62 10*6/uL Normal 3.80-5.00 [facility] Comment on above: Performed By: #### 5 0608 #### [facility] [address] [facility] [place] [address], [facility] WBC (Bld) [#/Vol] 6.59 10*3/uL Normal 4.00-10.60 [facility] Comment on above: Performed By: #### 5 0608 #### [facility] [address] [place] [address], [place] CREATININE URINE RANDOMon Creatinine (U) [Mass/Vol] 79.0 mg/dL Normal [facility] Comment on above: Result Comment: Ther e are no established reference values for random urine specimens Performed By: #### 4 180, 21678 #### [facility] [address] [place] [address], [place] MAGNESIUM BLOODon 05-06-2022 Magnesium [Mass/Vol] 2.0 mg/dL Normal 1.9-2.7 [facility] Comment on above: Performed By: #### 3 1550, 04353, 98185, 57308, 30724, 19508 #### [facility] [address] [place] [address], [place] PHOSPHORUS BLOODon Phosphate [Mass/Vol] 3.6 mg/dL Normal 2.5-5.0 [facility] Comment on above: Performed By: #### 3 1550, 50876, 56978, 28052, 14912, 35816 #### [facility] [address] [place] [address], [place] PTH INTACTon 05-06-2022 PTH INTACT 40 pg/mL Normal 12-88 [facility] Comment on above: Performed By: #### 3 1550, 70475, 19922, 07664, 76491, 24862 #### [facility] [address] [place] [address], [place] T PROT UR [place] 05-06-2022 U TOTAL PROTEIN 90.0 mg/dL Normal [facility] Comment on above: Result Comment: Ther e are no established reference values for random urine specimens Performed By: #### 4 180, 69132 #### [facility] [address] [place] [address], [place] VITAMIN D 25-HYDROXYon 05-06 VITAMIN D 25-OH 37.7 ng/mL Normal 30.0-80.0 [facility] Comment on above: Result Comment: >80. 0 Toxicity possible Performed By: #### 3 1550, 28482, 67231, 55872, 62332, 62307 #### [facility] [address] [place] [address], [facility] POCT urine pregnancyon 09-14 Beta HCG ( test) Ql (U) Negative NEGATIVE [facility] Comment on above: Specimens with hCG l evels near the threshold of the test (25 mIU/mL) may give a negative or indeterminate result. In such cases, another test should be performed with a new specimen in 48-72 hours. If early is suspected clinically in this setting, correlation with quantitative serum b-hCG level is suggested. [employer] RENAL COMPLETEOrdered By: Lex Willson on 08-18-2021 Similar appearance o f kidneys with no acute findings. No hydronephrosis. Bladder calculi. [facility] Phone: EXAMINATION: RETROPERITONEAL ULTRASOUND OF THE KIDNEYS [...] 1.2 and 1.4 cm suggesting bladder stones. [facility] Phone: Itz, pn Incoming Radiant Results From [email or web address] - 08/18/2021 10:12 AM EDT EXAMINATION: RETROPERITONEAL [...] no acute findings. No hydronephrosis. Bladder calculi. [facility] Phone: [facility] Phone: , UrineOrdered By: Nikko Bell on 02-19-2021 Beta HCG ( test) Ql (U) Negative NEGATIVE [facility] Phone: Comment on above: Specimens with hCG [...] on 02-18-2021 1. No evidence of hydronephrosis. [facility] Phone: EXAMINATION: RETROPERITONEAL ULTRASOUND OF THE KIDNEYS [...] mildly distended and cannot be fully evaluated. [facility] Phone: Itz, Mhpn Incoming Radiant Results From [facility] - 02/18/2021 1:53 PM EDT EXAMINATION: RETROPERITONEAL [...] evaluated. IMPRESSION: 1. No evidence of hydronephrosis. [facility] Phone: CBC Auto Differentialon 02-0 Basophils (Bld) [#/Vol] 0.05 10*3/uL [place] Basophils/100 WBC (Bld) 1 % 0 - 2 % [place] Differential Type NOT REPORTED [place] Eosinophils (Bld) [#/Vol] 0.13 10*3/uL [place] Eosinophils/100 WBC (Bld) 3 % 1 - 4 % [place] Erythrocyte distribution width (RBC) [Ratio] 11.9 % 11.8 - 14.4 % [place] Hematocrit (Bld) [Volume fraction] 37.7 % 36.3 - 47.1 % [place] Hemoglobin (Bld) [Mass/Vol] 12.2 g/dL 11.9 - 15.1 g/dL [place] Immature granulocytes (Bld) [#/Vol] 10*3/uL [place] Immature granulocytes (Bld) [#/Vol] 0 % 0 [place] Lymphocytes (Bld) [#/Vol] 1.97 10*3/uL [place] Lymphocytes/100 WBC (Bld) 41 % 25 - 45 % [place] MCH (RBC) [Entitic mass] 29.5 pg 25 - 35 pg [place] MCHC (RBC) [Mass/Vol] 32.4 g/dL 28.4 - 34.8 g/dL [place] MCV (RBC) [Entitic vol] 91.1 fL 78 - 102 fL [place] Monocytes (Bld) [#/Vol] 0.31 10*3/uL [place] Monocytes/100 WBC (Bld) 7 % 2 - 8 % [place] Platelet mean volume (Bld) [Entitic vol] 9.6 fL 8.1 - 13.5 fL [place] Platelets (Bld) [#/Vol] 202 10*3/uL [place] Platelets (Bld) [#/Vol] NOT REPORTED [place] RBC (Bld) [#/Vol] 4.14 10*6/uL 3.95 - 5.1 1 m/uL [place] RBC morphology finding Nom (Bld) NOT REPORTED [place] Segmented neutrophils/100 WBC (Bld) 48 % 34 - 64 % [place] Segs Absolute 2.33 [place] WBC (Bld) [#/Vol] 0.0 10*3/uL 0.0 per 100 WBC M [place] WBC (Bld) [#/Vol] 4.8 10*3/uL [place] WBC Morphology NOT REPORTED [place] Comprehensive Metabolic Pane chris 11-25-2020 Albumin [Mass/Vol] 4.6 g/dL 3.5 - 5.2 g/dL [place] Albumin/Globulin [Mass ratio] 2.1 {ratio} [place] ALP [Catalytic activity/Vol] 83 U/L 35 - 104 U/L [place] ALT [Catalytic activity/Vol] 11 U/L 5 - 33 U/L [place] Anion gap [Moles/Vol] 8 mmol/L Low 9 - 17 mmol/L [place] AST [Catalytic activity/Vol] 18 U/L <32 [place] Bilirubin Ql (U) 0.17 mg/dL Low 0.3 - 1.2 mg/dL [place] Bun/Cre Ratio NOT REPORTED [place] Calcium [Mass/Vol] 9.5 mg/dL 8.6 - 10. 4 mg/dL [place] Chloride [Moles/Vol] 104 mmol/L 98 - 107 mmol/L [place] CO2 [Moles/Vol] 25 mmol/L 20 - 31 mmol/L [place] Creatinine [Mass/Vol] 1.24 mg/dL High 0.5 - 0.9 mg/d L [place] GFR NOT REPORTED >60 mL/min [place] GFR Non- Pediatric GFR requires additional information. Refer to [facility] website for calculator. >60 mL/min [place] GFR/1.73 sq M predicted among non-blacks MDRD (S/P/Bld) [Vol rate/Area] [place] Comment on above: Average GFR for <20 years old not available. Chronic Kidney Disease: <60 mL/min/1.73sq m Kidney failure: <15 mL/min/1.73sq m eGFR calculated using average adult body mass. Additional eGFR calculator available at: http://www.[employer]/multiple_crcl_2012.htm GFR/1.73 sq M predicted among non-blacks MDRD (S/P/Bld) [Vol rate/Area] NOT REPORTED [place] Glucose [Mass/Vol] 82 mg/dL 70 - 99 mg/dL [place] Interpretation and review of laboratory results Abnormal [place] Potassium [Moles/Vol] 4.6 mmol/L 3.7 - 5.3 mmol/L [place] Protein [Mass/Vol] 6.8 g/dL 6.4 - 8.3 g/dL [place] Sodium [Moles/Vol] 137 mmol/L 135 - 144 mmol/L [place] Urea nitrogen [Mass/Vol] 21 mg/dL High 6 - 20 mg/dL [place] CBC Auto Differentialon 10-0 Basophils (Bld) [#/Vol] 0.04 10*3/uL [place] Basophils/100 WBC (Bld) 1 % 0 - 2 % [place] Differential Type NOT REPORTED [place] Eosinophils (Bld) [#/Vol] 0.11 10*3/uL [place] Eosinophils/100 WBC (Bld) 2 % 1 - 4 % [place] Erythrocyte distribution width (RBC) [Ratio] 11.6 % Low 11.8 - 14.4 % [place] Hematocrit (Bld) [Volume fraction] 40.6 % 36.3 - 47.1 % [place] Hemoglobin (Bld) [Mass/Vol] 13.4 g/dL 11.9 - 15.1 g/dL [place] Immature granulocytes (Bld) [#/Vol] 10*3/uL [place] Immature granulocytes (Bld) [#/Vol] 0 % 0 [place] Interpretation and review of laboratory results Abnormal [place] Lymphocytes (Bld) [#/Vol] 1.69 10*3/uL [place] Lymphocytes/100 WBC (Bld) 30 % 25 - 45 % [place] MCH (RBC) [Entitic mass] 30.0 pg 25 - 35 pg [place] MCHC (RBC) [Mass/Vol] 33.0 g/dL 28.4 - 34.8 g/dL [place] MCV (RBC) [Entitic vol] 90.8 fL 78 - 102 fL [place] Monocytes (Bld) [#/Vol] 0.31 10*3/uL [place] Monocytes/100 WBC (Bld) 6 % 2 - 8 % [place] Platelet mean volume (Bld) [Entitic vol] 9.0 fL 8.1 - 13.5 fL [place] Platelets (Bld) [#/Vol] NOT REPORTED [place] Platelets (Bld) [#/Vol] 240 10*3/uL [place] RBC (Bld) [#/Vol] 4.47 10*6/uL 3.95 - 5.1 1 m/uL [place] RBC morphology finding Nom (Bld) NOT REPORTED [place] Segmented neutrophils/100 WBC (Bld) 61 % 34 - 64 % [place] Segs Absolute 3.48 [place] WBC (Bld) [#/Vol] 5.6 10*3/uL [place] WBC (Bld) [#/Vol] 0.0 10*3/uL 0.0 per 100 WBC M [place] WBC Morphology NOT REPORTED [place] Comprehensive Metabolic Pane chris 07-23-2020 Albumin [Mass/Vol] 4.8 g/dL 3.5 - 5.2 g/dL [place] Albumin/Globulin [Mass ratio] 1.9 {ratio} [place] ALP [Catalytic activity/Vol] 97 U/L 35 - 104 U/L [place] ALT [Catalytic activity/Vol] 11 U/L 5 - 33 U/L [place] Anion gap [Moles/Vol] 11 mmol/L 9 - 17 mmol/L [place] AST [Catalytic activity/Vol] 17 U/L <32 [place] Bilirubin Ql (U) 0.17 mg/dL Low 0.3 - 1.2 mg/dL [place] Bun/Cre Ratio NOT REPORTED [place] Calcium [Mass/Vol] 9.7 mg/dL 8.6 - 10. 4 mg/dL [place] Chloride [Moles/Vol] 105 mmol/L 98 - 107 mmol/L [place] CO2 [Moles/Vol] 23 mmol/L 20 - 31 mmol/L [place] Creatinine [Mass/Vol] 0.98 mg/dL High 0.5 - 0.9 mg/d L [place] GFR NOT REPORTED >60 mL/min [place] GFR Non- Pediatric GFR requires additional information. Refer to [facility] website for calculator. >60 mL/min [place] GFR/1.73 sq M predicted among non-blacks MDRD (S/P/Bld) [Vol rate/Area] NOT REPORTED [place] GFR/1.73 sq M predicted among non-blacks MDRD (S/P/Bld) [Vol rate/Area] [place] Comment on above: Average GFR for <20 years old not available. Chronic Kidney Disease: <60 mL/min/1.73sq m Kidney failure: <15 mL/min/1.73sq m eGFR calculated using average adult body mass. Additional eGFR calculator available at: http://www.[employer]/multiple_crcl_2012.htm Glucose [Mass/Vol] 92 mg/dL 70 - 99 mg/dL [place] Interpretation and review of laboratory results Abnormal [place] Potassium [Moles/Vol] 4.5 mmol/L 3.7 - 5.3 mmol/L [place] Protein [Mass/Vol] 7.3 g/dL 6.4 - 8.3 g/dL [place] Sodium [Moles/Vol] 139 mmol/L 135 - 144 mmol/L [place] Urea nitrogen [Mass/Vol] 16 mg/dL 6 - 20 mg/dL [place] PTH, Intacton 07-23-2020 Pth Intact 18.78 pg/mL 15 - 65 pg/mL [place] Comment on above: SAMPLES FROM PATIENT S ROUTINELY RECEIVING HIGH DOSE BIOTIN THERAPY MAY SHOW FALSELY DEPRESSED RESULTS. ADDITIONAL INFORMATION MAY BE REQUIRED FOR DIAGNOSIS. Phosphoruson 07-23-2020 Phosphate [Mass/Vol] 4.2 mg/dL 2.5 - 4.8 mg/dL [place] Prealbuminon 07-23-2020 Prealbumin [Mass/Vol] 29.6 mg/dL 20 - 40 mg/dL [place] Echocardiogram Limited 2D w Doppler w Color Congenitalon 05-28-2020 Pediatric/Congenital Transthoracic Echocardiography (TTE) Report Demographics Patient Name ELIANA Leger Date of 05/28/2020 Study Date of 2000 Gender Female Age 19 year(s) Race Room Number [id number]^RADHATOÑOMORELIA^JAIV ER Height: 61.42 inch, 156 cm Corporate ID [id number] Weight: 94.82 pounds, 43.01 # kg Patient Acct [id number] BSA: 1.38 BMI: 17.67 # m^2 kg/m^2 MR # [id number] Email Operations Manager Uvaldo Harris Interpreting Dioni Donnelly Physician Referring Referring Nurse Physician Practitioner Conclusions Summary History of chronic renal insufficiency. Structurally normal heart with normal systolic function. Borderline to mildly dilated aortic root. Aortic root measured 30mm with a z-score of 2.33; aortic annulus 18mm z-score 0.20. No obvious evidence of congenital cardiac abnormalities. Compared to the previous study, no significant change. Signature Procedure Type of Study Pediatric/Congenital TTE Procedure:2D Limited/Doppler/Color Flow Map. Procedure Date Date: 05/28/2020Start: 12:20 PM Comments: Ginny Varlea MD (PCP) Aortic Root Dilation Technical Quality: [...] stenosis. Miscellaneous Slight pectus excavatum. Z Score ([place]) Measurement Value Range Z Measurement Value Range [...] velocity:0.65 m/s Left PA peak gradient:2 mmHg [facility] [place], [place] Itz, Mhpn Incoming Cardio Results From [facility]/Vsnap - 05/28/2020 3:52 PM EDT Pediatric/Congenital Transthoracic Echocardiography (TTE) Report Demographics Patient Name ELIANA Leger Date of 05/28/2020 Study Date of 2000 Gender Female Age 19 year(s) Race Room Number [id number]^DAVID^JAVI ER Height: 61.42 inch, 156 cm Corporate ID [id number] Weight: 94.82 pounds, 43.01 # kg Patient Acct [id number] BSA: 1.38 BMI: 17.67 # m^2 kg/m^2 MR # [id number] Email Operations Manager Uvaldo Harris Interpreting Dioni Donnelly Physician Referring Referring Nurse Physician Practitioner Conclusions Summary History of chronic renal insufficiency. Structurally normal heart with normal systolic function. Borderline to mildly dilated aortic root. Aortic root measured 30mm with a z-score of 2.33; aortic annulus 18mm z-score 0.20. No obvious evidence of congenital cardiac abnormalities. Compared to the previous study, no significant change. Signature Procedure Type of Study Pediatric/Congenital TTE Procedure:2D [...] stenosis. Miscellaneous Slight pectus excavatum. Z Score ([place]) Measurement Value Range Z Measurement Value Range [...] velocity:0.65 m/s Left PA peak gradient:2 mmHg [place] Basic Metabolic Panelon 07-0 Anion gap [Moles/Vol] 12 mmol/L 9 - 17 mmol/L [place] Bun/Cre Ratio NOT REPORTED [place] Calcium [Mass/Vol] 9.9 mg/dL 8.4 - 10. 2 mg/dL [place] Chloride [Moles/Vol] 104 mmol/L 98 - 107 mmol/L [place] CO2 [Moles/Vol] 23 mmol/L 20 - 31 mmol/L [place] Creatinine [Mass/Vol] 1.19 mg/dL High 0.5 - 0.9 mg/d L [place] GFR NOT REPORTED >60 mL/min [place] GFR Non- Pediatric GFR requires additional information. Refer to NKDEP website for calculator. >60 mL/min [place] GFR/1.73 sq M predicted among non-blacks MDRD (S/P/Bld) [Vol rate/Area] NOT REPORTED [place] GFR/1.73 sq M predicted among non-blacks MDRD (S/P/Bld) [Vol rate/Area] [place] Comment on above: Average GFR for <20 years old not available. Chronic Kidney Disease: <60 mL/min/1.73sq m Kidney failure: <15 mL/min/1.73sq m eGFR calculated using average adult body mass. Additional eGFR calculator available at: http://www.Link Trigger/multiple_crcl_2011.htm Glucose [Mass/Vol] 80 mg/dL 60 - 100 mg/dL [place] Interpretation and review of laboratory results Abnormal [place] Potassium [Moles/Vol] 4.8 mmol/L 3.6 - 4.9 mmol/L [place] Sodium [Moles/Vol] 139 mmol/L 135 - 144 mmol/L [place] Urea nitrogen [Mass/Vol] 19 mg/dL High 5 - 18 mg/dL [place] CBC Auto Differentialon 07-0 Basophils (Bld) [#/Vol] 0.03 10*3/uL [place] Basophils/100 WBC (Bld) 1 % 0 - 2 % [place] Differential Type NOT REPORTED [place] Eosinophils (Bld) [#/Vol] 0.19 10*3/uL [place] Eosinophils/100 WBC (Bld) 4 % 1 - 4 % [place] Erythrocyte distribution width (RBC) [Ratio] 11.6 % Low 11.8 - 14.4 % [place] Hematocrit (Bld) [Volume fraction] 45.2 % 36.3 - 47.1 % [place] Hemoglobin (Bld) [Mass/Vol] 14.5 g/dL 11.9 - 15.1 g/dL [place] Immature granulocytes (Bld) [#/Vol] 0 % 0 [place] Immature granulocytes (Bld) [#/Vol] 10*3/uL [place] Interpretation and review of laboratory results Abnormal [place] Lymphocytes (Bld) [#/Vol] 1.70 10*3/uL [place] Lymphocytes/100 WBC (Bld) 33 % 25 - 45 % [place] MCH (RBC) [Entitic mass] 30.4 pg 25 - 35 pg [place] MCHC (RBC) [Mass/Vol] 32.1 g/dL 28.4 - 34.8 g/dL [place] MCV (RBC) [Entitic vol] 94.8 fL 78 - 102 fL [place] Monocytes (Bld) [#/Vol] 0.33 10*3/uL [place] Monocytes/100 WBC (Bld) 6 % 2 - 8 % [place] Platelet mean volume (Bld) [Entitic vol] 9.3 fL 8.1 - 13.5 fL [place] Platelets (Bld) [#/Vol] NOT REPORTED [place] Platelets (Bld) [#/Vol] 216 10*3/uL [place] RBC (Bld) [#/Vol] 4.77 10*6/uL 3.95 - 5.1 1 m/uL [place] RBC morphology finding Nom (Bld) NOT REPORTED [place] Segmented neutrophils/100 WBC (Bld) 56 % 34 - 64 % [place] Segs Absolute 2.90 [place] WBC (Bld) [#/Vol] 5.2 10*3/uL [place] WBC (Bld) [#/Vol] 0.0 10*3/uL 0.0 per 100 WBC M [place] WBC Morphology NOT REPORTED [place] Vitamin B12on 04-23-2020 Cobalamin (Vitamin B12) [Mass/Vol] 692 pg/mL 232 - 1245 pg/mL [place] POCT urine pregnancyon 03-25 Beta HCG ( test) Ql (U) Negative NEGATIVE [place] Comment on above: Specimens with hCG l evels near the threshold of the test (25 mIU/mL) may give a negative or indeterminate result. In such cases, another test should be performed with a new specimen in 48-72 hours. If early is suspected clinically in this setting, correlation with quantitative serum b-hCG level is suggested. COVID-19on 03-22-2020 SARS-CoV-2 [place] SARS-CoV-2, PCR Not Detected Not Detected [place] Comment on above: (NOTE) The Fletcher RealTime SARS-CoV-2 assay is a real-time (rt) reverse transcriptase (RT) polymerase chain reaction (PCR) test intended for the [employer] system. The SARS-CoV-2 primer and probe sets are designed to detect RNA from SARS-CoV-2 in nasopharyngeal (COARSE WIRE DRAWER) and oropharyngeal (OP) swabs from patients with [...] The above 1 analytes were performed by [facility] [place] [address] SARS-CoV-2, Rapid [place] Source .NASOPHARYNGEAL SWAB [place] [id number] 03-22-2020 SARS-CoV-2 Not Detected Normal Not Detected [facility] Comment on above: Result Comment: (NOT E) The Fletcher RealTime SARS-CoV-2 assay is a real-time (rt) reverse transcriptase (RT) polymerase chain reaction (PCR) test intended for the [employer] system. The SARS-CoV-2 primer and probe sets are designed to detect RNA from SARS-CoV-2 in nasopharyngeal (COARSE WIRE DRAWER) and oropharyngeal (OP) swabs from patients with [...] The above 1 analytes were performed by [address] [address] Performed By: #### C OVID #### [facility] [address] [place] [address] [employer]: Bradley Parada MD [facility] [address] [place] [address] [employer]: Zeke Bay MD [facility] [address] [place] [address] [employer]: Gayathri Quintero MD [id number] 03-21-2020 SARS-CoV-2 [facility] Comment on above: Performed By: #### C OVID #### [facility] [address] [place] [address] [employer]: Bradley Parada MD [facility] [address] [place], [place] [id number] [employer]: Zeke Bay MD [facility] [address] [place] [address] [employer]: Gayathri Quintero MD SARS-CoV-2,Rapid [facility] Comment on above: Performed By: #### C OVID #### [facility] [address] [place] [address] [employer]: Bradley Parada MD [facility] [address] [place] [address] [place], [place] [id number] [employer]: Zeke Bay MD [facility] [address] [place] [address] [employer]: Gayathri Quintero MD SARS-CoV-2 Source .NASOPHARYNGEAL SWAB [facility] Comment on above: Performed By: #### C OVID #### [facility] [address] [place] [address] [employer]: Bradley Parada MD [facility] [address] [place] [address] [place], [place] [id number] [employer]: Zeke Bay MD [facility] [address] [place] [address] [employer]: Gayathri Quintero MD CBC Auto DifferentialOrdered By: Nikko Bell on 11-05-2019 Absolute Eos # 0.13 [facility] [employer] Phone: Absolute Immature Granulocyte <0.03 [facility] Phone: Absolute Lymph # 1.39 [facility] Phone: Absolute [place] # 0.29 [facility] [employer] Phone: Basophils (Bld) [#/Vol] 0.03 10*3/uL [employer] Phone: Basophils/100 WBC (Bld) 1 % 0 - 2 % [employer] Phone: Differential Type NOT REPORTED [employer] Phone: Eosinophils/100 WBC (Bld) 2 % 1 - 4 % [employer] Phone: Erythrocyte distribution width (RBC) [Ratio] 12.1 % 11.8 - 14.4 % [employer] Phone: Hematocrit (Bld) [Volume fraction] 45.0 % 36.3 - 47.1 % [employer] Phone: Hemoglobin (Bld) [Mass/Vol] 14.4 g/dL 11.9 - 15.1 g/dL [employer] Phone: Immature granulocytes/100 WBC (Bld) 0 % 0 [employer] Phone: Interpretation and review of laboratory results Abnormal [employer] Phone: Lymphocytes/100 WBC (Bld) 24 % Low 25 - 45 % [employer] Phone: MCH (RBC) [Entitic mass] 30.0 pg 25 - 35 pg [employer] Phone: MCHC (RBC) [Mass/Vol] 32.0 g/dL 28.4 - 34.8 g/dL [facility] Phone: MCV (RBC) [Entitic vol] 93.8 fL 78 - 102 fL [employer] Phone: Monocytes/100 WBC (Bld) 5 % 2 - 8 % [facility] Phone: NRBC Automated 0.0 0.0 per 100 WBC [facility] Phone: Platelet Estimate NOT REPORTED [employer] Phone: Platelet mean volume (Bld) [Entitic vol] 9.3 fL 8.1 - 13.5 fL [employer] Phone: Platelets (Bld) [#/Vol] 238 10*3/uL [employer] Phone: RBC (Bld) [#/Vol] 4.80 10*6/uL 3.95 - 5.1 1 m/uL [facility] Phone: RBC morphology finding Nom (Bld) NOT REPORTED [facility] Phone: Segmented neutrophils/100 WBC (Bld) 68 % High 34 - 64 % [employer] Phone: Segs Absolute 4.01 [facility] Phone: WBC (Bld) [#/Vol] 5.9 10*3/uL [facility] Phone: WBC Morphology NOT REPORTED [employer] Phone: Comprehensive Metabolic Pane lOrdered By: Nikko Bell on 11-05-2019 Albumin [Mass/Vol] 4.7 g/dL High 3.2 - 4.5 g/dL [facility] Phone: Albumin/Globulin [Mass ratio] 1.8 {ratio} [employer] Phone: ALP [Catalytic activity/Vol] 100 U/L 47 - 119 U/L [facility] Phone: ALT [Catalytic activity/Vol] 9 U/L 5 - 33 U/L [facility] Phone: Anion gap [Moles/Vol] 10 mmol/L 9 - 17 mmol/L [facility] Phone: AST [Catalytic activity/Vol] 15 U/L <32 [facility] Phone: Bilirubin [Mass/Vol] 0.16 mg/dL Low 0.3 - 1.2 mg/dL [facility] Phone: Bun/Cre Ratio NOT REPORTED [facility] Phone: Calcium [Mass/Vol] 10.3 mg/dL High 8.4 - 10. 2 mg/dL [facility] Phone: Chloride [Moles/Vol] 99 mmol/L 98 - 107 mmol/L [facility] Phone: CO2 [Moles/Vol] 25 mmol/L 20 - 31 mmol/L [facility] Phone: Creatinine [Mass/Vol] 0.97 mg/dL High 0.5 - 0.9 mg/d L [facility] Phone: GFR NOT REPORTED >60 mL/min [employer] Phone: GFR Comment [facility] Phone: Comment on above: Average GFR for <20 years old not available. Chronic Kidney Disease: <60 mL/min/1.73sq m Kidney failure: <15 mL/min/1.73sq m eGFR calculated using average adult body mass. Additional eGFR calculator available at: http://www.[employer] [place].duuin/multiple_crcl_2012.htm GFR Non- Pediatric GFR requires additional information. Refer to NKDEP website for calculator. >60 mL/min [facility] Phone: GFR Staging NOT REPORTED [facility] Phone: Glucose [Mass/Vol] 105 mg/dL High 60 - 100 mg/dL [place] [employer] Phone: Interpretation and review of laboratory results Abnormal [facility] Phone: Potassium [Moles/Vol] 4.5 mmol/L 3.6 - 4.9 mmol/L [facility] Phone: Protein [Mass/Vol] 7.3 g/dL 6 - 8 g/dL [facility] Phone: Sodium [Moles/Vol] 134 mmol/L Low 135 - 144 mmol/L [employer] Phone: Urea nitrogen [Mass/Vol] 13 mg/dL 5 - 18 mg/dL [facility] Phone: FerritinOrdered By: Nikko roca on 11-05-2019 Ferritin 15 ug/L 13 - 150 ug/L [facility] Phone: Iron and TIBCOrdered By: Nikko sal on 11-05-2019 Iron [Mass/Vol] 98 ug/dL 37 - 145 ug/dL [facility] Phone: Iron Saturation 30 % 20 - 55 % [facility] Phone: TIBC 323 ug/dL 250 - 450 ug/dL [facility] Phone: UIBC 225 ug/dL 112 - 347 ug/dL [facility] Phone: PTH, IntactOrdered By: Nikko campa on 11-05-2019 Pth Intact 24.76 pg/mL 15 - 65 pg/mL [facility] Phone: Comment on above: SAMPLES FROM PATIENT S ROUTINELY RECEIVING HIGH DOSE BIOTIN THERAPY MAY SHOW FALSELY DEPRESSED RESULTS. ADDITIONAL INFORMATION MAY BE REQUIRED FOR DIAGNOSIS. PhosphorusOrdered By: Nikko winter on 11-05-2019 Phosphate [Mass/Vol] 4.4 mg/dL 2.5 - 4.8 mg/dL [facility] Phone: Echocardiogram Sector w Dopp ler PediatricOrdered By: Dioni Donnelly on 10-03-2019 Pediatric/Congenital Transthoracic Echocardiography (TTE) Report Demographics Patient Name ELIANA Leger Date of Study 10/03/2019 Date of 2000 Gender Female Age 19 year(s) Race Room Number [id number]^DAVID^JAVI ER Height: 61.02 inch, 155 cm Corporate ID [id number] Weight: 92.6 pounds, 42 kg # Patient Acct [id number] BSA: 1.36 BMI: 17.48 # m^2 kg/m^2 MR # [id number] Email Operations Manager Uvaldo Walkerhel Interpreting Dioni Donnelly Physician Referring Referring Nurse Physician Practitioner Conclusions Summary History of chronic renal insufficiency . Structurally normal heart with normal systolic function. Borderline to mildly dilated aortic root. Aortic root measured 29mm with a z-score of 1.98; aortic annulus 19 mm z-score 1.05. No obvious evidence of congenital cardiac abnormalities. Signature Procedure Type of Study Pediatric/Congenital TTE Procedure:Echo [...] velocity:0.68 m/s Left PA peak gradient:2 mmHg [employer] Work Phone: Itz, pn Incoming Cardio Results From [facility]snap - 10/03/2019 4:01 PM EST Pediatric/Congenital Transthoracic Echocardiography (TTE) Report Demographics Patient Name ELIANA Leger Date of Study 10/03/2019 Date of 2000 Gender Female Age 19 year(s) Race Room Number [id number]^DAVID^JAVI ER Height: 61.02 inch, 155 cm Corporate ID [id number] Weight: 92.6 pounds, 42 kg # Patient Acct [id number] BSA: 1.36 BMI: 17.48 # m^2 kg/m^2 MR # [id number] Email Operations Manager Uvaldo Harris Interpreting Dioni Donnelly Physician Referring Referring Nurse Physician Practitioner Conclusions Summary History of chronic renal insufficiency . Structurally normal heart with normal systolic function. Borderline to mildly dilated aortic root. Aortic root measured 29mm with a z-score of 1.98; aortic annulus 19 mm z-score 1.05. No obvious evidence of congenital cardiac abnormalities. Signature Procedure Type of Study Pediatric/Congenital TTE Procedure:Echo [...] stenosis. Miscellaneous Slight pectus excavatum. Z Score ([place]) Measurement Value Range Z Measurement Value Range [...] velocity:0.68 m/s Left PA peak gradient:2 mmHg [employer] Work Phone: Vital Signs Date Time Vital Sign Value Performing Clinician Arabella richter 05-30-2024 13:59-0400 Body height 157.5 cm Judith Campos MD Work Phone: [facility] 05-30-2024 13:59-0400 Body mass index (BMI) [Ratio] 19.05 kg/m2 Judith Campos MD Work Phone: [facility] 05-30-2024 13:59-0400 Body weight 47.27 kg Judith Campos MD Work Phone: [facility] 05-30-2024 13:59-0400 Diastolic blood pressure 71 mm[Hg] Judith Campos MD Work Phone: [facility] 05-30-2024 13:59-0400 Heart rate 75 /min Judith Campos MD Work Phone: [facility] 05-30-2024 13:59-0400 Systolic blood pressure 118 mm[Hg] Judith Campos MD Work Phone: [facility] 05-07-2024 11:58-0400 Body height 157.5 cm Dunia Angeles MD Work Phone: [facility] 05-07-2024 11:58-0400 Body mass index (BMI) [Ratio] 18.75 kg/m2 Dunia Angeles MD Work Phone: [facility] 05-07-2024 11:58-0400 Body weight 46.5 kg Dunia Angeles MD Work Phone: [facility] 05-07-2024 11:58-0400 Diastolic blood pressure 79 mm[Hg] Dunia Angeles MD Work Phone: [facility] 05-07-2024 11:58-0400 Heart rate 73 /min Dunia Angeles MD Work Phone: [facility] 05-07-2024 11:58-0400 SaO2% (BldA) [Mass fraction] 100 % Dunia Angeles MD Work Phone: [facility] 05-07-2024 11:58-0400 Systolic blood pressure 112 mm[Hg] Dunia Angeles MD Work Phone: [facility] 05-07-2024 11:30-0400 Body height 157.5 cm Dunia Angeles MD Work Phone: [facility] 04-24-2024 08:50-0400 Body weight 45.81 kg Nahomy Carcamo PA-C Work Phone: [facility] 04-24-2024 08:50-0400 Diastolic blood pressure 80 mm[Hg] Nahomy Carcamo PA-C Work Phone: [facility] 04-24-2024 08:50-0400 Systolic blood pressure 114 mm[Hg] Nahomy Carcamo PA-C Work Phone: [facility] 01-16-2024 13:16-0400 Body height 157.5 cm Kathryn Nettles MD Work Phone: [facility] 01-16-2024 13:16-0400 Body mass index (BMI) [Ratio] 18.51 kg/m2 Kathryn Nettles MD Work Phone: [facility] 01-16-2024 13:16-0400 Body weight 45.9 kg Kathryn Nettles MD Work Phone: [facility] 01-16-2024 13:16-0400 Diastolic blood pressure 54 mm[Hg] Kathryn Nettles MD Work Phone: [facility] 01-16-2024 13:16-0400 Systolic blood pressure 108 mm[Hg] Kathryn Nettles MD Work Phone: [facility] 12-07-2023 09:20-0500 Body mass index (BMI) [Ratio] 18.07 kg/m2 Ac Mariee MD Work Phone: [facility] 12-07-2023 09:20-0500 Body weight 44.81 kg Ac Mariee MD Work Phone: [facility] 12-07-2023 09:20-0500 Diastolic blood pressure 81 mm[Hg] Ac Mariee MD Work Phone: [facility] 12-07-2023 09:20-0500 Heart rate 85 /min Ac Mariee MD Work Phone: [facility] 12-07-2023 09:20-0500 Systolic blood pressure 122 mm[Hg] Ac Mariee MD Work Phone: [facility] 11-15-2023 09:55-0500 Body mass index (BMI) [Ratio] 17.81 kg/m2 [facility]les [facility] 11-15-2023 09:55-0500 Body weight 44.18 kg Kathryn Nettles MD [facility] 11-15-2023 09:55-0500 Diastolic blood pressure 60 mm[Hg] Kathryn Nettles MD Work Phone: [facility] 11-15-2023 09:55-0500 Systolic blood pressure 108 mm[Hg] Kathryn Nettles MD Work Phone: [facility] 11-07-2023 14:09-0500 Body height 157.5 cm Kathryn Nettles MD Work Phone: [facility] 11-07-2023 14:09-0500 Body mass index (BMI) [Ratio] 18 kg/m2 Kathryn Nettles MD Work Phone: [facility] 11-07-2023 14:09-0500 Body weight 44.63 kg Kathryn Nettles MD [facility] 06-06-2022 00:12-0400 Body height 157.5 cm Markell Fernando DO Work Phone: [employer] 06-06-2022 00:12-0400 Body mass index (BMI) [Ratio] 18.66 kg/m2 Markell Fernando DO Work Phone: [employer] 06-06-2022 00:12-0400 Body temperature 98.4 [degF] Markell Fernando DO Work Phone: [employer] 06-06-2022 00:12-0400 Body weight 46.27 kg Markell Fernando DO Work Phone: [employer] 06-06-2022 00:12-0400 Diastolic blood pressure 85 mm[Hg] Markell Fernando DO Work Phone: [employer] 06-06-2022 00:12-0400 Heart rate 94 /min Markell Gamboad DO Work Phone: [facility] [employer] 06-06-2022 00:12-0400 Respiratory rate 16 /min Markell Gamboad DO Work Phone: [facility] [employer] 06-06-2022 00:12-0400 SaO2% (BldA) [Mass fraction] 97 % Markell Gamboad DO Work Phone: [facility] [employer] 06-06-2022 00:12-0400 Systolic blood pressure 114 mm[Hg] Markell Gamboad DO Work Phone: [facility] [employer] 09-14-2021 15:27-0500 Body temperature 97.3 [degF] Lex Willson MD Work Phone: [employer] 09-14-2021 15:27-0500 Diastolic blood pressure 89 mm[Hg] Lex Willson MD Work Phone: [employer] 09-14-2021 15:27-0500 Heart rate 95 /min Lex Willson MD Work Phone: [employer] 09-14-2021 15:27-0500 Respiratory rate 18 /min Lex Willson MD Work Phone: [employer] 09-14-2021 15:27-0500 SaO2% (BldA) [Mass fraction] 100 % Lex Willson MD Work Phone: [employer] 09-14-2021 15:27-0500 Systolic blood pressure 114 mm[Hg] Lex Willson MD Work Phone: [employer] 09-14-2021 12:59-0500 Body height 157.5 cm Lex Willson MD Work Phone: [employer] 09-14-2021 12:59-0500 Body mass index (BMI) [Percentile] Per age and sex 2.52 % Lex Willson MD Work Phone: [employer] 09-14-2021 12:59-0500 Body mass index (BMI) [Ratio] 17.28 kg/m2 Lex Willson MD Work Phone: [employer] 09-14-2021 12:59-0500 Body weight 42.87 kg Lex Willson MD Work Phone: [employer] 03-25-2020 11:45-0400 Body Temperature 97.2 [degF] [employer], [employer] [place] [employer] 03-25-2020 11:45-0400 BP Diastolic 91 mm[Hg] [employer] , [employer] [place] [employer] 03-25-2020 11:45-0400 BP Systolic 129 mm[Hg] [employer] , [employer] [place] [employer] 03-25-2020 11:45-0400 Pulse (Heart Rate) 79 /min Amelia Hubspan, [employer] 03-25-2020 11:45-0400 Pulse Oximetry 100 % [employer] , [employer] [place] [employer] 03-25-2020 11:45-0400 Respiratory Rate 18 /min [employer], [facility] Encounters Encounter Date Encounter Type Care Provider Facility Start: 05-30-2024 End: 05-30-2024 ambulatory JUDITH CAMPOS Facility:[facility] Start: 05-30-2024 End: 05-30-2024 Patient encounter procedure i Tech 1 Quality Assurance Monitor [facility] Sonia RAMOS Work Phone: Maternal Medicine Comment on above: screening for malformation using ultrasonics (Primary Dx); Supervision of high risk , antepartum; 16 weeks gestation of Supervision of high risk in second trimester (Primary Dx); 16 weeks gestation of ; History of sacrococcygeal teratoma of sacrum; History of maternal hypertension; Aortic root dilation (HCC); History of bowel resection Start: 05-28-2024 Telephone encounter Judith Campos MD Work Phone: Obstetrics/Gynecol ogy Comment on above: Patient Update (Head ache concerns in early ) Start: 05-15-2024 End: 05-15-2024 ambulatory [facility] Start: 05-07-2024 End: 05-07-2024 ambulatory DUNIA ANGELES Facility:[facility] Start: 05-07-2024 End: 05-07-2024 Patient encounter procedure Dunia Angeles MD Work Phone: Maternal Medicine Comment on above: screening for malformation using ultrasonics (Primary Dx); 13 weeks gestation of ; History of maternal hypertension; Enlarged aorta (HCC); Chronic renal impairment, unspecified CKD stage; History of sacrococcygeal teratoma of sacrum; Mitrofanoff appendicovesicostomy present (HCC) Supervision of high risk , antepartum (Primary Dx); Enlarged aorta (HCC); Aortic root dilation (HCC); Hydronephrosis of left kidney; Chronic renal impairment, unspecified CKD stage; Mitrofanoff appendicovesicostomy present (HCC); History of maternal hypertension; Observation for suspected genetic condition; History of sacrococcygeal teratoma of sacrum; Generalized anxiety disorder; Recurrent urinary tract infection; Scoliosis, unspecified scoliosis type, unspecified spinal region; H/O abdominal surgery Start: 04-30-2024 Telephone encounter Nahomy keene PA-C Work Phone: OB/Gynecology Comment on above: PRAF Start: 04-27-2024 Telephone encounter Maximino todd Medicine Start: 04-26-2024 Telephone encounter Lesa Agrawal RN Maternal Medicine Start: 04-24-2024 End: 04-24-2024 ambulatory NAHOMY CARCAMO Facility:[facility] Start: 04-24-2024 End: 04-24-2024 ambulatory NAHOMY CARCAMO Facility:[facility] Start: 04-24-2024 End: 04-24-2024 Patient encounter procedure Nahomy Carcamo PA-C Work Phone: Obstetrics/Gynecol ogy Comment on above: Supervision of high risk , antepartum (Primary Dx); Aortic root dilation (HCC); Chronic renal impairment, unspecified CKD stage; Hydronephrosis of left kidney; Mitrofanoff appendicovesicostomy present (HCC); History of sacrococcygeal teratoma of sacrum; History of maternal hypertension; ASCUS with positive high risk HPV cervical; 11 weeks gestation of Start: 04-20-2024 Telephone encounter Fv Ob Mfm Work Phone: Maternal Medicine Start: 04-18-2024 Telephone encounter Lulú ochoa CAR SHAKEOUT OPERATORRubioTRIPLE AIR VALVE TESTER Work Phone: [facility] Comment on above: PEAC; Care Coordinat ion Start: 04-16-2024 Telephone encounter Fv Ob Mfm Work Phone: Maternal Medicine Start: 04-04-2024 End: 04-04-2024 ambulatory [facility] Start: 03-24-2024 End: 03-24-2024 ambulatory [facility] Start: 03-22-2024 End: 03-22-2024 ambulatory [facility] Start: 03-13-2024 End: 03-13-2024 ambulatory [facility] Start: 02-05-2024 End: 02-06-2024 Emergency department patient visit [facility] Start: 02-05-2024 End: 02-05-2024 Emergency department patient visit [facility] Start: 02-05-2024 End: 02-06-2024 Emergency department patient visit [facility] Start: 01-16-2024 End: 01-16-2024 ambulatory [facility] Start: 01-16-2024 End: 01-16-2024 Office outpatient visit 15 minutes Kathryn Nettles MD Work Phone: [facility] Obstetrics/Gynecol ogy Comment on above: Condyloma (Primary D x); HPV (human papilloma virus) anogenital infection Start: 01-10-2024 End: 01-11-2024 ambulatory KATIA [facility] Start: 12-07-2023 End: 12-07-2023 ambulatory [facility] Start: 12-07-2023 End: 12-07-2023 Office consultation new/estab patient 40 min Ac Mariee MD Work Phone: Maternal- Medicine at [facility] Comment on above: Hydronephrosis of le ft kidney; Chronic renal impairment, stage 3 (moderate), unspecified whether stage 3a or 3b CKD ([facility]) Start: 11-24-2023 Encounter for gyneco logical examination (general) (routine) without abnormal findings Catrina Tejeda HAND CANDY CUTTER [facility] Start: 11-24-2023 Orders Only Catrina Tejeda LPN [facility] Comment on above: Cervical smear, as p art of routine gynecological examination (Primary Dx) Start: 11-23-2023 Chart abstracting Ac eldridge MD Work Phone: Maternal- Medicine at [facility] Start: 11-19-2023 Telephone encounter Nina ortiz APRN-CNM Work Phone: [facility] Start: 11-16-2023 Telephone encounter Nina ortiz CAR SHAKEOUT OPERATOR-CNM Work Phone: [facility] Start: 11-15-2023 End: 11-15-2023 ambulatory [facility] Start: 11-15-2023 End: 11-15-2023 ambulatory [facility] Start: 11-15-2023 Encounter for gyneco logical examination (general) (routine) without abnormal findings [facility] Start: 11-15-2023 End: 11-15-2023 Patient encounter status Kathryn Netltes MD Work Phone: [facility] Start: 11-15-2023 End: 11-15-2023 Periodic preventive med est patient 18-39 yrs Kathryn Nettles MD Work Phone: [facility] Obstetrics/Gynecol ogy Comment on above: Smear, vaginal, as p art of routine gynecological examination (Primary Dx); Screening for STD (sexually transmitted disease); Encounter for gynecological examination without abnormal finding Start: 11-15-2023 End: 11-15-2023 ambulatory [facility] Start: 11-15-2023 Encounter for gyneco logical examination (general) (routine) without abnormal findings KARIME GUERRERO [facility] Start: 11-08-2023 Telephone encounter Pau Castillo in Maternal- Medicine at [facility] Start: 11-07-2023 End: 11-07-2023 ambulatory [facility] Start: 11-07-2023 End: 11-07-2023 Office outpatient new 30 minutes Kathryn Nettles MD Work Phone: [facility] Obstetrics/Gynecol cintia Comment on above: Hydronephrosis of le ft kidney (Primary Dx); Chronic renal impairment, stage 3 (moderate), unspecified whether stage 3a or 3b CKD ([facility]); Irregular bleeding Start: 10-06-2023 Telephone encounter Paulina Cassidy [facility] Start: 10-04-2023 End: 10-04-2023 Emergency department patient visit APURVA [facility] Start: 06-16-2023 End: 06-16-2023 ambulatory LOR LOZANO [facility] Start: 03-14-2023 End: 03-14-2023 ambulatory JACK [...] End: 06-06-2022 [facility] Start: 06-06-2022 End: 06-06-2022 Emergency department patient visit Markell Fernando DO Work Phone: [facility] Comment on above: Abdominal cramps (Pr imary Dx); Vaginal spotting; Acute cystitis with hematuria Start: 09-14-2021 End: 09-14-2021 Subsequent hospital visit by physician Lex Willson MD Work Phone: [facility] Start: 08-18-2021 End: 08-20-2021 Subsequent hospital visit by physician Moisés [facility] [employer] [facility] Ultrasound Comment on above: Neurogenic bladder; Pelviectasis of kidney; Mitrofanoff appendicovesicostomy present (HCC) Start: 02-18-2021 End: 02-20-2021 Subsequent hospital visit by physician Moisés [facility] [employer] [facility] Ultrasound Comment on above: Pelviectasis of kidn ey; Neurogenic bladder Start: 02-18-2021 End: 02-18-2021 Subsequent hospital visit by physician Apurva Torres DO Work Phone: [facility] Comment on above: CRI (chronic renal i nsufficiency), unspecified stage Start: 11-25-2020 End: 11-25-2020 Subsequent hospital visit by physician Ginny JOHNS Laboratory Comment on above: CRI (chronic renal i nsufficiency), unspecified stage Start: 07-23-2020 End: 07-23-2020 Subsequent hospital visit by physician Ginny JOHNS Laboratory Comment on above: CRI (chronic renal i nsufficiency), unspecified stage Start: 05-28-2020 End: 05-28-2020 Subsequent hospital visit by physician Miosés Peds Echo Rm 1 [facility] P[facility] Echo Comment on above: Arrived Start: 04-23-2020 End: 04-23-2020 Subsequent hospital visit by physician Ginny JOHNS Laboratory Comment on above: Hydronephrosis of le ft kidney; Chronic renal impairment, unspecified CKD stage Neurogenic bladder Start: 03-25-2020 End: 03-25-2020 Subsequent hospital visit by physician Amelia Rich Work Phone: [facility] Start: 03-21-2020 End: 03-26-2020 Patient encounter procedure JUAN DAVID LUNA [facility] Start: 03-21-2020 End: 03-25-2020 Subsequent hospital visit by physician Denisse Cutlerid19 Pat Screening Schedule [facility] PRE ADMIT Start: 11-05-2019 End: 11-05-2019 Subsequent hospital visit by physician Ginny Varela MD Work Phone: [facility] Comment on above: CRI (chronic renal i nsufficiency), unspecified stage Start: 10-03-2019 End: 10-03-2019 Subsequent hospital visit by physician Ginny Varela MD Work Phone: [facility] Comment on above: Neurogenic bladder; Currarino syndrome; Aortic root dilatation (HCC) Arrived Start: 06-27-2017 End: 07-07-2017 Patient encounter status Paulina Cassidy INSERT MOLDING OPERATOR [facility] Procedures Date Procedure Procedure Detail Performing Clinician Start: 05-30-2024 Urnls dip stick/tabl et rgnt non-auto w/o micrscp Judith Campos MD Work Phone: Start: 05-30-2024 Us preg uterus after 1st trimest 1/ gestation Nahomy Carcamo PA-C Work Phone: Start: 05-15-2024 Follow-up visit Follow-up YANCY LOJA Start: 05-09-2024 H/O: surgery H/O abdominal surgery Dunia Angeles MD Work Phone: Start: 05-07-2024 Culture bacterial quanttative colony count urine Dunia Angeles MD Work Phone: Start: 05-07-2024 Us nuchal translucency 1st gestation Nahomy Carcamo PA-C Work Phone: Start: 04-24-2024 Antibody screen DUNIA VELAZQUEZ Comment on above: Order Comment: Speci men Type: BLOOD SPECIMEN Ordering Facility: [facility] Address: [address] [place] [address] Performed By: #### T SPN #### CC MAIN BLOOD BANK [facility] [id number] [address] [place] [address] [place] Start: 04-24-2024 Iadna chlamydia trachomatis amplified probe tq Nahomy Carcamo PA-C Work Phone: Start: 11-15-2023 Adult depression scr eening assessment Kathryn Nettles MD Work Phone: Start: 11-15-2023 Microscopic observat ion [Identifier] in Cervix by Cyto stain Nina Russell APRN-[facility] Work Phone: Start: 11-07-2023 Urine test visual color cmprsn meths Kathryn Nettles MD Work Phone: Start: 06-06-2022 Antibody screen Markell Pearl mmoud DO Work Phone: Start: 06-06-2022 Urinalysis microscop ic only Markell Abdullahi DO Work Phone: Start: 06-06-2022 Urine test visual color cmprsn meths Markell Abdullahi DO Work Phone: Start: 06-06-2022 Basic metabolic pane l calcium total Markell Abdullahi DO Work Phone: Start: 06-06-2022 Hepatic function panel Markell Abdullahi DO Work Phone: Start: 09-14-2021 Urine test visual color cmprsn meths Lex Willson MD Work Phone: Start: 08-18-2021 Us retroperitoneal r eal time w/image complete Lex Willson MD Work Phone: Start: 02-18-2021 Us retroperitoneal r eal time w/image complete Debbie Desai APRN - [facility] Work Phone: Start: 02-18-2021 Urine test visual color cmprsn meths Nikko Bell MD Work Phone: Start: 11-25-2020 Blood count complete auto&auto difrntl wbc Nikko Bell Work Phone: Start: 11-25-2020 Comprehensive metabo lic panel Nikko Bell Work Phone: Start: 07-23-2020 Assay of parathormone Nikko Bell Work Phone: Start: 07-23-2020 Assay of phosphorus inorganic Nikko Bell Work Phone: Start: 07-23-2020 Blood count complete auto&auto difrntl wbc Nikko Bell Work Phone: Start: 07-23-2020 Comprehensive metabo lic panel Nikko Bell Work Phone: Start: 07-23-2020 Prealbumin Nikko sal Work Phone: Start: 05-28-2020 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 Dioni Donnelly Work Phone: Start: 04-23-2020 Basic metabolic pane l calcium total Nikko Bell Work Phone: Start: 04-23-2020 Blood count complete auto&auto difrntl wbc Nikko Bell Work Phone: Start: 04-23-2020 Cyanocobalamin vitam in b-12 Amelia Rich Work Phone: Start: 03-25-2020 Urine test visual color cmprsn meths Amelia Rich Work Phone: Start: 03-21-2020 COVID-19 JUAN DAVID ARCHULETA Start: 03-21-2020 COVID-19 Juan David epstein Work Phone: Start: 11-05-2019 Comprehensive metabo lic panel Nikko Deo Bell MD Work Phone: Start: 10-03-2019 Complete tthrc echo congenital cardiac anomaly Dioni Donnelly MD Work Phone: H/O: surgery H/O abdominal surgery Dunia Angeles MD Work Phone: Plan of Treatment Date Care Activity Detail Author Start: 2062 RSV Vaccine (1 - 1-dose 60+ series) RSV Vaccine (1 - 1-dose 60+ series) [facility] Start: 11-15-2026 Screening for malignant neoplasm of cervix Pap Smear [facility] Start: 04-24-2025 GC (Gonorrhea) Screening (18-24) GC (Gonorrhea) Screening (18-24) [facility] Start: 04-24-2025 Screening for Chlamydia trachomatis Chlamydia Screening () [facility] Start: 04-17-2025 Creatinine measurement Serum Creatinine [facility] Start: 01-15-2025 Adult BMI Screening Adult BMI Screening [facility] Start: 01-15-2025 Tobacco Screening Tobacco Screening [facility] Start: 12-07-2024 Adult BMI Screening Adult BMI Screening [facility] Start: 12-07-2024 Tobacco Screening Tobacco Screening [facility] Start: 11-15-2024 Adult BMI Screening Adult BMI Screening [facility] Start: 11-15-2024 Depression Screening Depression Screening [facility] Start: 11-15-2024 Screening for Chlamydia trachomatis Chlamydia Screening [facility] Start: 11-15-2024 Tobacco Screening Tobacco Screening [facility] Start: 11-07-2024 Adult BMI Screening Adult BMI Screening [facility] Start: 11-07-2024 Tobacco Screening Tobacco Screening [facility] Start: 10-04-2024 Tobacco Screening Tobacco Screening [facility] Start: 09-17-2024 RSV Vaccine (1 - Risk 1-dose series) RSV Vaccine (1 - Risk 1-dose series) [facility] Start: 08-25-2024 End: 08-25-2024 Patient encounter procedure 08/25/2024 10:30 AM EST Routine Office Visit Maternal Medicine [address] [place] [address] 28 week growth Maternal Medicine Comment on above: 28 week growth Start: 08-10-2024 End: 08-10-2024 Patient encounter procedure 08/10/2024 1:15 PM EDT Office Visit [facility] [facility]NA[facility] [address] [place] [address] Adeline Morales MD [address] [place] [address] COB appointment [facility] Comment on above: COB appointment Start: 08-10-2024 End: 08-10-2024 Patient encounter procedure 08/10/2024 10:20 AM EDT Office Visit Cardiology [address] [place] [address] [facility] Card[facility] Comment on above: [facility] Start: 07-24-2024 End: 07-24-2024 Patient encounter procedure 07/24/2024 2:00 PM EDT Routine Office Visit Obstetrics/Gynecology [address] [place] [address] Judith Campos MD [address] [place] [id number] 4 week ob Obstetrics/Gyneco logy Comment on above: 4 week ob Start: 07-14-2024 Adult BMI Screening Adult BMI Screening [facility] Start: 06-28-2024 End: 06-28-2024 Patient encounter procedure Maternal Fet al Medicine Comment on above: Anatomy follow up Start: 06-20-2024 End: 06-20-2024 Patient encounter procedure 06/20/2024 2:00 PM EDT Routine Office Visit Maternal Medicine [address] [place] [address] Anatomy Maternal Medicine Comment on above: Anatomy Start: 06-17-2024 Influenza vaccination [facility] Start: 06-15-2024 End: 06-15-2024 ambulatory 06/15/2024 8:00 AM EDT [facility] Urology [address] [address] Johnny Benítez MD [address] [place] [address] neurogenic bladder Urology Comment on above: neurogenic bladder Start: 05-30-2024 End: 08-29-2024 ALPHA FETOPRO MATERNAL ALPHA FETOPRO MATERNAL Lab Routine 16 weeks gestation of Expected: 05/30/2024, Expires: 08/29/2024 [facility] Work Phone: Comment on above: Expected: 05/30/2024, Expires: 4 Start: 05-30-2024 End: 05-30-2025 OBSTETRIC ULTRASOUND WHI OBSTETRIC ULTRASOUND WHI Anc Imaging Routine Supervision of high risk , antepartum screening for malformation using ultrasonics 16 weeks gestation of Expected: 05/30/2024, Expires: 05/30/2025 [facility] Work Phone: Comment on above: Expected: 05/30/2024, Expires: Start: 05-30-2024 End: 05-30-2024 Patient encounter procedure Obstetrics/G yneco logy Comment on above: - Received a REFER A PATIENT REQUEST ALANNA Quiroz's office referring the patient to be seen in obgyn for Encounter for care in first trimester of first Adolescent idiopathic scoliosis, thoracic region Hydronephrosis of left kidney Mitrofanoff appendicovesicostomy present ([facility]) . Referral and/or order can be found in Appointment Desk 04/10/2024. 16 week early anatom y Start: 05-09-2024 End: 05-09-2025 OBSTETRIC ULTRASOUND WHI OBSTETRIC ULTRASOUND WHI Anc Imaging Routine History of maternal hypertension Expected: 05/09/2024, Expires: 05/09/2025 [facility] Comment on above: Expected: 05/09/2024, Expires: 5 Start: 05-07-2024 End: 05-07-2024 Patient encounter procedure Maternal Fet al Medicine Comment on above: Nuchal consult per Start: 04-24-2024 End: 07-24-2024 Chromosome 21 trisomy [Presence] in Blood or Tissue by Cytogenetics [facility] Comment on above: Expected: 04/24/2024, Expires: 4 Start: 04-24-2024 End: 04-24-2025 NUCHAL TRANSLUCENCY WHI NUCHAL TRANSLUCENCY WHI Anc Imaging Routine Supervision of high risk , antepartum Expected: 04/24/2024, Expires: 04/24/2025 [facility] Comment on above: Expected: 04/24/2024, Expires: Start: 04-24-2024 End: 04-24-2025 OBSTETRIC ULTRASOUND WHI OBSTETRIC ULTRASOUND WHI Anc Imaging Routine Supervision of high risk , antepartum Expected: 04/24/2024, Expires: 04/24/2025 [facility] Work Phone: Comment on above: Expected: 04/24/2024, Expires: Start: 04-24-2024 End: 04-24-2024 Patient encounter procedure 04/24/2024 8:45 AM EDT Initial Office Visit Obstetrics/Gynecology [address] [facility] [address] [place], [place] [id number] Nahomy Carcamo PA-C [address] [place], [place] [id number] - Received a REFER A PATIENT REQUEST from ALANNA CUMMINGS's office referring the patient to be seen in obgyn for Encounter for care in first trimester of first Adolescent idiopathic scoliosis, thoracic region Hydronephrosis of left kidney Mitrofanoff appendicovesicostomy present ([facility]) . Referral and/or order can be found in Appointment Desk 04/10/2024. Obstetrics/Gyneco logy Comment on above: - Received a REFER A PATIENT REQUEST ALANNA Quiroz's office referring the patient to be seen in obgyn for Encounter for care in first trimester of first Adolescent idiopathic scoliosis, thoracic region Hydronephrosis of left kidney Mitrofanoff appendicovesicostomy present (CMS-HCC) . Referral and/or order can be found in Appointment Desk 04/10/2024. Start: 03-13-2024 End: 03-13-2024 Patient encounter procedure 03/13/2024 2:45 PM EDT Office Visit [facility] [address] [place] [address] [place] [address] Hunter Villarreal MD [address] [place] [address] [facility] Start: 02-06-2024 End: 02-06-2024 Patient encounter procedure 02/06/2024 10:30 AM EDT Procedure visit [facility] Obstetrics/Gynecology [address] [id number] Kathryn Nettles MD [address] [place] [address] [facility] Obstetrics/Gyneco logy Start: 01-18-2024 Screening for Chlamydia trachomatis Chlamydia Screening [facility] Start: 12-07-2023 End: 12-07-2023 Patient encounter procedure 12/07/2023 9:00 AM EST Office Visit Maternal- Medicine at [place] [id number] [place] [id number] Ac Mariee MD [address] [facility], [address] [place] [address] Maternal- Medicine at [facility] Start: 11-15-2023 End: 11-15-2023 Patient encounter procedure 11/15/2023 10:00 AM EST Office Visit [facility] [address] [place] [phone] Kathryn Nettles MD [address] [place] [address] [facility] Obstetrics/Gyneco logy Start: 11-07-2023 DTaP,Tdap and Td Vaccines (7 - Td or Tdap) DTaP,Tdap and Td Vaccines (7 - Td or Tdap) [facility] Start: 11-07-2023 DTaP/Tdap/Td vaccine (7 - Td or Tdap) DTaP/Tdap/Td vaccine (7 - Td or Tdap) [facility] Start: 11-07-2023 DTaP/Tdap/Td vaccine (7 - Td) DTaP/Tdap/Td vaccine (7 - Td) [facility] Work Phone: Start: 11-07-2023 Urine microalbumin profile DTaP,Tdap,Td Vaccine (7 - Td or Tdap) [facility] Start: 10-17-2023 Behavioral Health Screening Behavioral Health Screening [facility] Start: 2023 Screening for malignant neoplasm of cervix [facility] Start: 06-17-2023 COVID-19 Vaccine () COVID-19 Vaccine () [facility] Start: 06-17-2023 Influenza vaccination Influenza Vaccine [facility] Start: 06-17-2022 Influenza vaccination Flu vaccine (#1) [facility] Start: 02-15-2022 End: 02-15-[address] [facility] Start: 09-14-2021 End: 09-14-2021 URETEROSCOPY STONE REMOVAL LASER URETEROSCOPY STONE REMOVAL LASER NEUROGENIC BLADDER, BLADDER STONE 09/14/2021 1:51 PM EST [facility] Start: 08-31-2021 COVID-19 Vaccine (3 - Booster for Moderna series) COVID-19 Vaccine (3 - Booster for Moderna series) [facility] Start: 06-17-2021 Influenza vaccination [facility] Start: 05-28-2021 End: 05-28-2021 Patient encounter procedure 05/28/2021 Office Visit Pediatric Cardiology Katia Mei MD [address] [address] [phone] [facility] Congenital Flat Breakdown Processor Start: 02-18-2021 End: 02-18-2021 Appointment [facility] Start: 11-28-2020 End: 11-28-2020 Office Visit 11/28/2020 Office Visit Pediatric Cardiology Katia Mei MD [address] [place] [address] [phone] [facility] Congenital Flat Breakdown Processor Start: 11-25-2020 End: 11-25-2020 Office Visit 11/25/2020 Office Visit Pediatric Nephrology Nikko Bell MD [address] [facility] [address] [place] [address] [phone] [facility] Pediatric Nephrology Spec Start: 10-01-2020 End: 10-01-2020 Office Visit 10/01/2020 Office Visit Pediatric Cardiology Dioni Donnelly MD [address] [place] [address] [phone] [facility] Congenital [employer] Breakdown Processor Start: 07-29-2020 End: 07-29-2020 Office Visit 07/29/2020 Office Visit Pediatric Nephrology Nikko Bell MD [address] [facility] [address] [place] [address] [phone] [facility] Pediatric Nephrology Spec Start: 2020 Adult BMI Follow Up Plan Adult BMI Follow Up Plan [facility] Start: 2020 Annual PCP Team Chronic Disease Visit Annual PCP Team Chronic Disease Visit [facility] Start: 2020 Anxiety Screening Anxiety Screening [facility] Start: 2020 Depression Screening Depression Screening [facility] Start: 2020 GC (Gonorrhea) Screening (18-24) GC (Gonorrhea) Screening (18-24) [facility] Start: 2020 Hepatitis C [facility] Start: 2020 HIV screening HIV Screening [facility] Start: 2020 Screening for Chlamydia trachomatis Chlamydia Screening (18-24) [facility] Start: 06-17-2020 Influenza vaccination Flu vaccine (#1) [facility] [place] [place] Start: 05-28-2020 End: 05-28-2020 Office Visit 05/28/2020 Office Visit Pediatric Cardiology Dioni Donnelly MD [address] [place] [address] [phone] [facility] Congenital [employer] Breakdown [employer]or Start: 04-24-2020 Creatinine monitoring Creatinine monitoring [facility] Work Phone: Start: 04-24-2020 Potassium monitoring Potassium monitoring [facility] Phone: Start: 03-24-2020 End: 03-24-2020 Patient encounter procedure [facility] Start: 10-15-2019 End: 10-15-2019 Patient encounter procedure 10/15/2019 Office Visit Pediatric Nephrology Nikko Bell MD [address] [facility] [address] [place], [place] [id number] [facility] Start: 06-17-2019 Influenza vaccination Flu vaccine (#1) [facility] Phone: Start: 2018 Chlamydia screen Chlamydia screen [facility] Phone: Start: 2018 COVID-19 Vaccine (1) COVID-19 Vaccine (1) [facility] Phone: Start: 2018 Meningococcal (ACWY) Vaccine (1 - 2-dose series) Meningococcal (ACWY) Vaccine (1 - 2-dose series) [facility] Phone: Start: 2018 Screening for Chlamydia trachomatis Chlamydia screen [facility] Start: 2017 HIV screen HIV screen [facility] Phone: Start: 2017 HIV screening HIV screen [facility] Start: 2016 Peds To Adult Transition Annual Assessment Peds To Adult Transition Annual Assessment [facility] Start: 2014 Depression Screen Depression Screen [facility] [employer] Start: 2014 Depression Screening Depression Screening [facility] Start: 2014 Peds To Adult Transition Initial Discussion Peds To Adult Transition Initial Discussion [facility] Start: 2013 HPV vaccine (1 - Female 2-dose series) HPV vaccine (1 - Female 2-dose series) [facility] Phone: Start: 2009 DTaP/Tdap/Td vaccine (1 - Tdap) DTaP/Tdap/Td vaccine (1 - Tdap) [facility] Phone: Start: 2008 Pneumococcal vaccination Pneumococcal Vaccine (1 of 2 - PCV) [facility] Start: 2003 Hepatitis A vaccine (1 of 2 - 2-dose series) Hepatitis A vaccine (1 of 2 - 2-dose series) [facility] Phone: Start: 2003 Measles,Mumps,Rubella (MMR) vaccine (1 of 2 - Standard series) Measles,Mumps,Rubella (MMR) vaccine (1 of 2 - Standard series) [facility] Phone: Start: 2003 Varicella Vaccine (1 of 2 - 2-dose childhood series) Varicella Vaccine (1 of 2 - 2-dose childhood series) [facility] Phone: Start: 2002 Polio vaccine 0-18 (1 of 3 - 4-dose series) Polio vaccine 0-18 (1 of 3 - 4-dose series) [facility] Phone: Start: 2002 Hepatitis B vaccine (1 of 3 - 3-dose primary series) Hepatitis B vaccine (1 of 3 - 3-dose primary series) [facility] Phone: Start: 2002 Hepatitis C screening Hepatitis C screen [facility] Start: 2002 Tobacco Counseling Tobacco Counseling [place] Bacteria identified in Urine by Culture URINE CULTURE Microbiology Routine Chronic renal impairment, unspecified CKD stage 05/07/2024 3:08 PM EDT [facility] End: 11-15-2024 Chlamydia/GC by PCR ThinPrep fluid Chlamydia/GC by PCR ThinPrep fluid Microbiology Routine Screening for STD (sexually transmitted disease) 1 Occurrences starting 11/15/2023 until 11/15/2024 [place] Comment on above: 1 Occurrences starting 11/15/2023 until 11/15/2024 CREATININE, 24 HOUR URINE CREATI NINE, 24 HOUR URINE Lab Routine Chronic renal impairment, unspecified CKD stage Ordered: 05/07/2024 [facility] Comment on above: Ordered: 05/07/2024 Culture, Urine Property Place [facility] Comment on above: Release Upon Ordering for 1 Occurrences starting 03/25/2020 End: 06-06-2022 Culture, Urine Culture, Urine Microbiology Routine Once for 1 Occurrences starting 06/06/2022 until 06/06/2022 [employer] Phone: Comment on above: Once for 1 Occurrences starting 06/06/20 22 until 06/06/2022 Culture, Urine Culture, Urine M icrobiology Routine 06/06/2022 12:46 AM EDT [facility] Phone: End: 04-23-2020 Cystatin C Cystatin C Lab Routine Neurogenic bladder 1 Occurrences starting 04/23/2020 until 04/23/2020 [facility] Comment on above: 1 Occurrences starting 04/23/2020 until 04/23/2020 Cystatin C [facility] Phone: End: 11-05-2019 Cystatin C Cystatin C Lab Routine CRI (chronic renal insufficiency), unspecified stage 1 Occurrences starting 11/05/2019 until 11/05/2019 [facility] Phone: Comment on above: 1 Occurrences starting 11/05/2019 until 11/05/2019 End: 11-15-2024 Cytopathology procedure, preparation of smear, genital source Pap Smear Pathology and Cytology Routine Smear, vaginal, as part of routine gynecological examination 1 Occurrences starting 11/15/2023 until 11/15/2024 [employer] Phone: Comment on above: 1 Occurrences starting 11/15/2023 until 11/15/2024 End: 05-09-2025 ECHO ECHO Cardiology Routine Enlarged aorta (HCC) 1 Occurrences starting 05/09/2024 until 05/09/2025 [facility] Comment on above: 1 Occurrences starting 05/09/2024 until 05/09/2025 End: 11-07-2024 Follicle stimulating hormone Follicle stimulating hormone Lab Routine Irregular bleeding 1 Occurrences starting 11/07/2023 until 11/07/2024 [place] Comment on above: 1 Occurrences starting 11/07/2023 until 11/07/2024 End: 11-24-2024 High Risk HPV w/Mandi High Risk HPV w/Mandi Lab Routine Cervical smear, as part of routine gynecological examination 1 Occurrences starting 11/24/2023 until 11/24/2024 [employer] Phone: Comment on above: 1 Occurrences starting 11/24/2023 until 11/24/2024 Human papilloma viru s 31+33+35+39+45+51+52+56+58+ 59+66+68 DNA [Presence] in Cervix by DADA with probe detection High risk HPV w/mandi Lab Routine Cervical smear, as part of routine gynecological examination 11/24/2023 9:34 AM EST [place] Initiate Oxygen Ther apy Protocol Initiate Oxygen Therapy Protocol Respiratory Care Routine Daily until discontinued starting 03/25/2020 [employer] [place] Comment on above: Daily until discontinued starting 2019 End: 09-14-2021 Intermittent pulse oximetry Pulse Oximetry Spot Check Respiratory Care Routine One Time for 1 Occurrences starting 09/14/2021 until 09/14/2021 [facility] Phone: Comment on above: One Time for 1 Occurrences starting 08/18 until 09/14/2021 End: 11-07-2024 Luteinizing hormone Luteinizing hormone Lab Routine Irregular bleeding 1 Occurrences starting 11/07/2023 until 11/07/2024 [employer] Work Phone: Comment on above: 1 Occurrences starting 11/07/2023 until 11/07/2024 End: 10-03-2019 Miscellaneous Sendout 1 Miscellaneous Sendout 1 Lab Routine Neurogenic bladder Currarino syndrome Aortic root dilatation (HCC) 1 Occurrences starting 10/03/2019 until 10/03/2019 [facility] Phone: Comment on above: 1 Occurrences starting 10/03/2019 until 10/03/2019 Miscellaneous Sendout 1 Miscella neous Sendout 1 Lab Routine Neurogenic bladder Currarino syndrome Aortic root dilatation (HCC) 10/03/2019 4:28 PM EST [facility] Phone: Oxygen therapy [[facility] [place] Initiate Oxygen Therapy Protocol Respiratory Care Routine Daily until discontinued starting 09/14/2021 [facility] Phone: Comment on above: Daily until discontinued starting 2020 Oxygen therapy [[facility] Data Set] Initiate Oxygen Therapy Protocol Respiratory Care Routine Daily until discontinued starting 09/14/2021 [facility] Phone: Comment on above: Daily until discontinued starting 2020 Phase I & II - meter ed glucose Phase I & II - metered glucose Point of Care Testing Routine As Needed until discontinued starting 03/25/2020 [place] Comment on above: As Needed until discontinued starting Phase I & II - meter ed glucose Phase I & II - metered glucose Point of Care Testing Routine As Needed until discontinued starting 09/14/2021 [facility] Phone: Comment on above: As Needed until discontinued starting End: 09-14-2021 POCT urine POCT urine Point of Care Testing STAT One Time for 1 Occurrences starting 09/14/2021 until 09/14/2021 [facility] Phone: Comment on above: One Time for 1 Occurrences starting 08/18 until 09/14/2021 End: 11-07-2024 Prolactin Prolactin Lab Routine Irregular bleeding 1 Occurrences starting 11/07/2023 until 11/07/2024 [place] Comment on above: 1 Occurrences starting 11/07/2023 until 11/07/2024 Protein [Mass/time] in 24 hour Urine PROTEIN, 24 HOUR URINE Lab Routine Chronic renal impairment, unspecified CKD stage Ordered: 05/07/2024 [facility] Work Phone: Comment on above: Ordered: 05/07/2024 End: 11-07-2024 Thyroid profile includes TSH FT4 Thyroid profile includes TSH FT4 Lab Routine Irregular bleeding 1 Occurrences starting 11/07/2023 until 11/07/2024 [place] Comment on above: 1 Occurrences starting 11/07/2023 until 11/07/2024 End: 09-14-2021 Urine , POCT Urine , POCT Point of Care Testing Routine One Time for 1 Occurrences starting 09/14/2021 until 09/14/2021 [facility] Phone: Comment on above: One Time for 1 Occurrences starting 08/18 until 09/14/2021 End: 11-15-2024 Vaginitis Panel PCR Vaginitis Panel PCR Microbiology Routine Screening for STD (sexually transmitted disease) 1 Occurrences starting 11/15/2023 until 11/15/2024 [facility] Comment on above: 1 Occurrences starting 11/15/2023 until 11/15/2024 Immunizations Immunization Date Immunization Notes Care Provider Fa aye 03-31-2021 COVID-19, Moderna, Primary or Immunocompromised, PF, 100mcg/0.5mL [facility] Work Phone: 03-05-2021 COVID-19, Moderna, Primary or Immunocompromised, PF, 100mcg/0.5mL [facility] 09-24-2019 meningococcal B vacc ine, recombinant, OMV, adjuvanted [facility] Work Phone: 08-24-2019 influenza, injectabl e, quadrivalent, preservative free [facility] Work Phone: 08-24-2019 meningococcal B vacc ine, recombinant, OMV, adjuvanted [facility] [employer] Phone: 08-24-2019 meningococcal polysaccharide (groups A, C, Y and W-135) diphtheria toxoid conjugate vaccine (MCV4P) [employer] [facility] Phone: 08-24-2019 influenza virus vacc ine, unspecified formulation [facility] 08-14-2018 influenza, injectabl e, quadrivalent, preservative free [facility] Work Phone: 10-04-2017 influenza, injectabl e, quadrivalent, preservative free [facility] Work Phone: 08-23-2016 Human Papillomavirus 9-valent vaccine [facility] Work Phone: 08-23-2016 influenza, injectabl e, quadrivalent, preservative free [facility] Work Phone: 11-11-2015 Human Papillomavirus 9-valent vaccine [facility] Phone: 07-24-2015 influenza virus vacc ine, whole virus Ginny Varela MD Work Phone: [facility] 11-07-2013 Human Papillomavirus 9-valent vaccine [facility] Phone: 11-07-2013 influenza, injectabl e, quadrivalent, preservative free [facility] Work Phone: 11-07-2013 meningococcal polysaccharide (groups A, C, Y and W-135) diphtheria toxoid conjugate vaccine (MCV4P) [facility] Phone: 11-07-2013 tetanus toxoid, redu mhoit diphtheria toxoid, and acellular pertussis vaccine, adsorbed [facility] Phone: 07-22-2008 hepatitis A vaccine, pediatric/adolescent dosage, [address] [facility] Phone: 12-18-2007 hepatitis A vaccine, pediatric/adolescent dosage, [address] [facility] Phone: 12-18-2007 varicella virus vaccine [facility] Phone: 09-12-2006 diphtheria, tetanus toxoids and acellular pertussis vaccine [facility] Work Phone: 09-12-2006 influenza virus vacc ine, whole virus [facility] Work Phone: 09-12-2006 measles, mumps and rubella virus vaccine [facility] Phone: 09-12-2006 poliovirus vaccine, inactivated [facility] Phone: 10-12-2004 influenza virus vacc ine, whole virus [facility] Work Phone: 08-15-2003 diphtheria, tetanus toxoids and acellular pertussis vaccine, unspecified formulation [employer] [facility] Phone: 08-15-2003 haemophilus influenz ae type b vaccine, conjugate unspecified formulation [employer] Phone: 08-15-2003 measles, mumps and rubella virus vaccine [facility] Phone: 08-15-2003 varicella virus vaccine [facility] Phone: 04-25-2003 hepatitis B vaccine, pediatric or pediatric/adolescent dosage [employer] Phone: 02-13-2003 diphtheria, tetanus toxoids and acellular pertussis vaccine, unspecified formulation [employer] Phone: 02-13-2003 haemophilus influenz ae type b vaccine, conjugate unspecified formulation [employer] Phone: 02-13-2003 pneumococcal conjuga te vaccine, 7 valent [employer] Phone: 02-13-2003 poliovirus vaccine, unspecified formulation [employer] Phone: 2002 diphtheria, tetanus toxoids and acellular pertussis vaccine, unspecified formulation [employer] Phone: 2002 haemophilus influenz ae type b vaccine, conjugate unspecified formulation [employer] Phone: 2002 pneumococcal conjuga te vaccine, 7 valent [employer] Phone: 2002 poliovirus vaccine, unspecified formulation [employer] Phone: 2002 diphtheria, tetanus toxoids and acellular pertussis vaccine, unspecified formulation [employer] Phone: 2002 haemophilus influenz ae type b vaccine, conjugate unspecified formulation [facility] Work Phone: 2002 hepatitis B vaccine, pediatric or pediatric/adolescent dosage [facility] Work Phone: 2002 pneumococcal conjuga te vaccine, 7 valent [facility] Work Phone: 2002 poliovirus vaccine, unspecified formulation [facility] Work Phone: 2002 hepatitis B vaccine, pediatric or pediatric/adolescent dosage [facility] [place] Work Phone: Payers Date Payer Category Payer Department of Devendra gaviria ([employer] and others) xxxxxxxxxxx [id number] 2017 [employer] ([employer] and others) [id number] 2014 Unknown [facility] xxxxxxxxxxxx 2014-Present [phone] [address] [place] [address] xxxxxxxxxxxx [id number] 2003 Medicaid [id number] 2002 Unknown [id number] 2.16.840.1.692523.3.579.2 .176 2002 Unknown [id number] 2.16.840.1.498611.3.579.2 .593 2002 Unknown [id number] 2.16.840.1.058327.3.579.2 .593 2002 Unknown [id number] 2.16.840.1.366569.3.579.2 .593 2002 Unknown [id number] 2.16.840.1.885827.3.579.2 .593 2002 Unknown [id number] 2.16.840.1.058647.3.579.2 .593 2002 Unknown [id number] 2.16.840.1.981171.3.579.2 .593 2002 Unknown [id number] 2.16.840.1.431090.3.579.2 .593 2002 Unknown [id number] 2.16.840.1.755158.3.579.2 .175 2002 Unknown [id number] 2.16.840.1.114870.3.579.2 .1286 2002 Unknown [id number] 2.16.840.1.358938.3.579.2 .1286 2002 Unknown [id number] 2.16.840.1.909750.3.579.2 .1286 2002 Unknown [id number] 2.16.840.1.960123.3.579.2 .1286 2002 Unknown [id number] 2.16.840.1.791093.3.579.2 .1286 2002 Unknown [id number] 2.16.840.1.451067.3.579.2 .1286 2002 Unknown [id number] 2.16.840.1.634509.3.579.2 .1286 2002 Unknown [id number] 2.16.840.1.024892.3.579.2 .1286 2002 Unknown [id number] 2.16.840.1.305195.3.579.2 .1286 2002 Unknown [id number] 2.16.840.1.974315.3.579.2 .1286 2002 Unknown [id number] 2.16.840.1.277208.3.579.2 .1286 2002 Unknown [id number] 2.16.840.1.574727.3.579.2 .1286 2002 Unknown [id number] 2.16.840.1.338513.3.579.2 .1286 2002 Unknown [id number] 2.16.840.1.502937.3.579.2 .1286 2002 Unknown [id number] 2.16.840.1.254498.3.579.2 .1286 1959 Unknown [id number] 1955 Unknown [id number] 2.16.840.1.136996.3.579.2 .173 Social History Date Type Detail Facility Start: 07-30-2013 End: 03-25-2020 Tobacco smoking status KYIS Never smoker [facility] Phone: Start: 03-25-2020 End: 06-06-2022 Alcohol intake Current non-drinker of alcohol (finding) [facility] Phone: Start: 2002 Sex Assigned At Not on file [facility] [employer] Phone: Exposure to SARS-CoV -2 (event) Unable to assess [employer] Start: 05-28-2020 End: 04-24-2024 Tobacco use and exposure Never used [employer] [place] Start: 05-27-2022 End: 06-06-2022 Exposure to SARS-CoV-2 (event) Not sure [employer] Start: 12-23-2022 Tobacco smoking stat [facility] Occasional tobacco smoker [facility] History of tobacco use [facility] Start: 10-04-2023 End: 01-16-2024 Alcohol intake Current drinker of alcohol (finding) [facility] Start: 10-04-2023 End: 04-18-2024 History of Social function [facility] Start: 10-04-2023 End: 04-18-2024 Tobacco use panel [facility] Housing Instability Unknown [facility] Start: 2002 Sex Assigned At Female P [facility] Start: 06-16-2022 Gender identity Identifies as female gender (finding) [facility] Start: 09-19-2022 Sexual orientation Bisexual (finding ) [facility] Start: 11-07-2023 Alcohol Comment once a month [facility] Start: 11-23-2023 Alcohol Comment occasional [facility] Tobacco smoking stat [facility] Tobacco smoking consumption unknown [facility] Start: 04-24-2024 Tobacco smoking stat [facility] Smokes tobacco daily [facility] Start: 04-24-2024 End: 05-30-2024 Alcohol intake Ex-drinker (finding) [facility] Start: 04-24-2024 Tobacco Comment Vape [facility] Start: 02-20-2024 [facility] Medical Equipment Procedure Code Equipment Code Equipment Origin al Text Equipment Identifier Dates Rti Frz C/C Chip s 30cc - [id number] - [id number] Start: 07-07-2017 Comment on above: Description: 07/18/17 Added Zero to Serial no. [id number]) to link with [employer]. TWing RN Ozzy Spnl Meagan 600 mm 6mm Cmpr Ti - [id number] Start: 07-07-2017 Blck Spnl Meagan 3 - [id number] Start: 07-07-2017 Meagan [employer]ux Screw 5.5 X 35 [id number] Start: 07-07-2017 Goals Date Patient Goal Desired Activity /State Personal health goal Clinical Notes 09-14-2021 to 05-30-2024 Quick Notes - Judith Campos MD - 05/30/2024 4:55 PM EDTPrenatal Quick Notes - Judith Campos MD - 05/30/2024 4:55 PM Jose Maria Cortes MD - 05/30/2024 1:34 PM EDT Note Date & Type Note Facility 05-30-2024 Progress note Formatting of t his note might be different from the original. S: Patient doing well. No vaginal bleeding or leakage of fluid. No abdominal/pelvic pain O: BP 118/71 Pulse 75 Ht 157.5 cm (5' 2.01 ) Wt 47.3 kg (104 lb 3.2 oz) LMP 02/06/2024 BMI 19.05 kg/m See flowsheet A/P: 23 year old @ 16w2d 1) Routine care 2) AFP ordered today 3) MFM consult for hx of hydronephrosis and renal insufficience (Also sees urology) and for aortic root dilation 4) Aortic root dilatation - echo? 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 No vaginal bleeding or leakage of fluid. No abdominal/pelvic pain O: BP 118/71 Pulse 75 Ht 157.5 cm (5' 2.01 ) Wt 47.3 kg (104 lb 3.2 oz) LMP 02/06/2024 BMI 19.05 kg/m See flowsheet A/P: 23 year old @ 16w2d 1) Routine care 2) AFP ordered today 3) MFM consult for hx of hydronephrosis and renal insufficience (Also sees urology) and for aortic root dilation 4) Aortic root dilatation - echo? 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 No answer, LVM to call back. Tita Crow RN Omid is calling Judith Campos MD today with concern regarding headaches lasting for 3 days and unsure if there is anything she can take in regards to these headaches with . Patient has been identified by name and birthdate. Duration of symptoms: 3 days Person calling: self Call patient at: on cell [phone] (home) [phone] (cell) Was an appointment scheduled: No Closing statement: Symptom Call: Thank you for calling [facility], your call is very important. A nurse will call in approximately 2-4 hours during business hours. If this is an emergency, please contact 911. Ary Saleem documented in this encounter [facility] 05-30-2024 Note HNO ID: [id number] Author: JOSE MARIA AMADOR MD Service: ? Author Type: Physician Type: Progress Notes Filed: 05/30/2024 14:08 Note Text: Patient here for routine anatomy scan. See ultrasound report for details. Noninvasive testing is negative. Ultrasound exam in 4 weeks to complete anatomy survey and reevaluate growth. Clinical correlation. Jose Maria Amador MD [facility] 05-30-2024 History of Present illness Narrative Patient here for routine anatomy scan. See ultrasound report for details. Noninvasive testing is negative. Ultrasound exam in 4 weeks to complete anatomy survey and reevaluate growth. Clinical correlation. Jose Maria Amador MD documented in this encounter [facility] 05-28-2024 Telephone encounter Note Called patient. No answer, LVM to call back. Tita Crow RN [facility] 05-28-2024 Telephone encounter Note Omid is calling Judith Campos MD today with concern regarding headaches lasting for 3 days and unsure if there is anything she can take in regards to these headaches with . Patient has been identified by name and birthdate. Duration of symptoms: 3 days Person calling: self Call patient at: on cell [phone] (home) [phone] (cell) Was an appointment scheduled: No Closing statement: Symptom Call: Thank you for calling [facility], your call is very important. A nurse will call in approximately 2-4 hours during business hours. If this is an emergency, please contact 911. Ary Saleem [facility] 05-07-2024 Note HNO ID: [id number] Author: DUNIA ANGELES MD Service: ? Author Type: Physician Type: Progress Notes Filed: 05/09/2024 13:16 Note Text: [employer] OUTPATIENT VISIT DATE May 07, 2024 OUTPATIENT VISIT TYPE CONSULT REFERRING PROVIDER: WALT Robertson Recommendations from today's consultation will be conveyed through the electronic medical record. History of Present Illness: 23 year old at 13w0d with Estimated Date of Delivery: 11/12/24 presenting for consultation with Maternal- Medicine at the [facility] in the setting of maternal history of multiple personal congenital anomalies and resulting sequelae. Omid presents today with her mother (who is her grandmother) and together they describe the following history. 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 She has received most of her prior healthcare in the [facility] and lives about 1 hour away from [facility] She developed a neurogenic bladder in corporate claims examiner, presumably as a result of the original SCT surgery. She also had significant bilateral VUR and hydronephrosis. She underwent a bilateral ureteral reimplantation surgery with bladder augmentation/creation of Mitrofanoff fistula. She does not leak any urine urethrally and voids entirely by Mitrofanoff straight catheterization through the stoma in her anterior abdomen/pelvis. She has had a history of nephrolithiasis/bladder stones and has had both lithotripsy and abdominal excision of a bladder stone from her augmented bladder/Mitrofanoff. Omid also reports a history of recurrent UTIs as well as several episodes of pyelonephritis. She has been on prophylactic antibiotics in the past. She has not yet done a Ucx this . Review of prior culture data in Care Everywhere demonstrates numerous microbes including GBS, pseudomonas, E coli, and enterococcus. She follows with a urologist at [facility] in [place], and [place] Constance Loja. 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 On available records, her BUN and GFR have recently been normal and her Cr is currently high-normal. Serum Cr was 0.94 on 04/17/24. [facility] records demonstrate a baseline serum Cr in the 1.1 range. Her earliest available labs in [facility] (2010) demonstrate azotemia.She has not had a recent assessment of urine protein. She sees a car washer at the [facility] [facility], Dr. Lor Lozano. Omid also reports a history of hypertension in adolescence which was likely in the setting of worse kidney function. She does not have a BP cuff at home and has not been on antihypertensive medication. Spinal conditions In addition to the SCT resection at , Omid reports that she underwent a spinal fusion in adolescence due to severe scoliosis from T3-L1. This is higher than would be expected for SCT-related problems so is like a separate issue. 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 She follows with a erp business analyst in [place] (Dr. Katia Mei) and her last echo 12/2023 demonstrated borderline dilated aortic root (31 mm, Z-score 2.6). She has a Bowel issues Omid describes that she experienced several bowel obstructions which required surgical repair in childhood, both thought to be secondary to scar tissue from her SCT surgery. She also describes anal stricture and that she had an anoplasty surgery in corporate claims examiner as well. She also experiences chronic constipation and takes Miralax PRN. in adolescence in the setting of worsened kidney function. Spinal conditions In addition to the SCT resection at , Omid reports that she underwent a spinal fusion in adolescence due to severe scoliosis from T3-L1. This is higher than would be expected for SCT-related problems so is like a separate issue. 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 She follows with a erp business analyst in [place] (Dr. Katia Mei) and her last echo 12/2023 demonstrated borderline dilated aortic root (31 mm, Z-score 2.6). Bowel issues Omid describes that she experienced several bowel obstructions which required surgical repair in childhood, both thought to be secondary to scar tissue from her SCT surgery. She also describes anal stricture and that she had an anoplasty surgery in corporate claims examiner as well. She also experiences chronic constipation and takes Miralax PRN. Other medical conditions Other medical condition include history of anxiety for which she has previously been on Lexapro and childhood asthma. Her re (more content not included)... [facility] 05-07-2024 History of Present illness Narrative Images from the original note were not included. [facility] OUTPATIENT VISIT DATE May 07, 2024 OUTPATIENT VISIT TYPE CONSULT REFERRING PROVIDER: WALT Robertson Recommendations from today's consultation will be conveyed through the electronic medical record. History of Present Illness: 23 year old at 13w0d with Estimated Date of Delivery: 11/12/24 presenting for consultation with Maternal- Medicine at the [facility] in the setting of maternal history of multiple personal congenital anomalies and resulting sequelae. Omid presents today with her mother (who is her grandmother) and together they describe the following history. 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 She also had significant bilateral VUR and hydronephrosis. She underwent a bilateral ureteral reimplantation surgery with bladder augmentation/creation of Mitrofanoff fistula. She does not leak any urine urethrally and voids entirely by Mitrofanoff straight catheterization through the stoma in her anterior abdomen/pelvis. She has had a history of nephrolithiasis/bladder stones and has had both lithotripsy and abdominal excision of a bladder stone from her augmented bladder/Mitrofanoff. Omid also reports a history of recurrent UTIs as well as several episodes of pyelonephritis. She has been on prophylactic antibiotics in the past. She has not yet done a Ucx this . Review of prior culture data in Care Everywhere demonstrates numerous microbes including GBS, pseudomonas, E coli, and enterococcus. She follows with a urologist at [facility] in [place], and WALT Loja. 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 On available records, her BUN and GFR have recently been normal and her Cr is currently high-normal. Serum Cr was 0.94 on 04/17/24. [facility] records demonstrate a baseline serum Cr in the 1.1 range. Her earliest available labs in [facility] (2010) demonstrate azotemia.She has not had a recent assessment of urine protein. She sees a car washer at the [facility], Dr. Lor Lozano. Omid also reports a history of hypertension in adolescence which was likely in the setting of worse kidney function. She does not have a BP cuff at home and has not been on antihypertensive medication. Spinal conditions In addition to the SCT resection at , Omid reports that she underwent a spinal fusion in adolescence due to severe scoliosis from T3-L1. This is higher than would be expected for SCT-related problems so is like a separate issue. 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 She follows with a erp business analyst in [place] (Dr. Katia Mei) and her last echo 12/2023 demonstrated borderline dilated aortic root (31 mm, Z-score 2.6). She has a Bowel issues Omid describes that she experienced several bowel obstructions which required surgical repair in childhood, both thought to be secondary to scar tissue from her SCT surgery. She also describes anal stricture and that she had an anoplasty surgery in corporate claims examiner as well. She also experiences chronic constipation and takes Miralax PRN. in adolescence in the setting of worsened kidney function. Spinal conditions In addition to the SCT resection at , Omid reports that she underwent a spinal fusion in adolescence due to severe scoliosis from T3-L1. This is higher than would be expected for SCT-related problems so is like a separate issue. 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 She follows with a erp business analyst in [place] (Dr. Katia Mei) and her last echo 12/2023 demonstrated borderline dilated aortic root (31 mm, Z-score 2.6). Bowel issues Omid describes that she experienced several bowel obstructions which required surgical repair in childhood, both thought to be secondary to scar tissue from her SCT surgery. She also describes anal stricture and that she had an anoplasty surgery in corporate claims examiner as well. She also experiences chronic constipation and takes Miralax PRN. Other medical conditions Other medical condition include history of anxiety for which she has previously been on Lexapro and childhood asthma. Her relevant histories have been updated and are reviewed below: Obstetric History: G1- Current Gynecologic History: Fibroids: Y/N: No Cysts: Y/N: No Pelvic Infection: Y/N: Yes - CT Abnormal Pap smear: Y/N: Yes, ASCUS/HPV pos Excisional cervical procedure: Y/N: No Past Medical History: PAST MEDICAL HISTORY Diagnosis Date Chronic constipation Chronic hypertension Chronic kidney disease Enlarged aorta (HCC) Generalized anxiety disorder Hydronephrosis Hydronephrosis of left kidney 04/27/2024 Followed by nephrology. MFM consult placed. Ureteral stents 6 yo -ureteral reimplantation? Dr. Montague - [facility] [place] Constance Loja - Mild intermittent asthma Childhood Neurogenic bladder Recurrent urinary tract infection Scoliosis Past Surgical History: PAST SURGICAL HISTORY Procedure Laterality Date ANOPLASTY PLASTIC OPERATION STRICTURE ADULT 2006 BIOPSY/REMOVAL, LYMPH NODE(S) 2014 BLADDER SURGERY HX 2006 Mitrofanoff SURG SACROCOC TERATOMA 2002 DOL 1-2 LITHOTRIPSY XTRCORP SHOCK WAVE 2020 REDUCE BOWEL OBSTRUCTION 2004, 2006 REMOVE BLADDER STONE,>2.5CM 2022 Abdominal excision of bladder stone SPINAL FUSION,ANT,EA ADNL LEVEL 2017 [place], T3-L1 Medications: Current Outpatient Medications on File Prior to Visit Medication Sig Knymwnbk-[id number] tab Take 1 tablet by mouth once daily. FOLIC ACID ORAL Take by mouth. (Patient not taking: Reported on 05/07/2024) No current facility-administered medications on file prior to visit. Allergies: ALLERGIES Allergen Reactions Ibuprofen Other: See Comments Kidney Failure- Stage 3 Kidney Failure- Stage 3 Diphenhydramine Unknown Social History: Social History Tobacco Use Smoking status: Every Day Smokeless tobacco: Never Tobacco comments: Vape Substance Use Topics Alcohol use: Not Currently Drug use: Never Family History: No family history on file. Review of Systems: Negative other than as noted above. Physical Exam: Height Weight BMI 5' 2 (157.5 cm) 102 lb 8.2 oz (46.5 kg) 18.75 Pulse BP Resp O2 Sat Temp Pain 73 112/79 100 % Gen: Well-appearing, no acute distress CV/Resp: Non-labored breathing on room air Abd: Gravid, non-tender Ext: Moving spontaneously, no significant edema b/l FHTs: + on US Assessment and Plan: 23 year old at 13w0d presenting for MFM consultation due to history of congenital sacrococcygeal teratoma with resultant neurogenic bladder necessitating Mitrofanoff procedure, CKD, and recurrent infections. She also has scoliosis s/p spinal fusion, anal stricture s/p anoplasty, and aortic root dilation. Considering these conditions together, it is possible that she has underlying VACTERL association given that she has vertebral defects, anal atresia, cardiac defects, and renal anomalies. While the SCT itself may explain some of these, it does not explain all. There have been some reports of coincidence of VACTERL with SCT (Pediatric Blood Cancer 2023; 71:5). Omid will like benefit from a medical/cardiac genetic work-up given possible VACTERL which has some genetic associations and the aortic root dilation. Given her personal history of congenital anomalies, 16 and 20 week detailed anatomy scans should be performed, as well as echocardiogram. Reconstructed bladder, History of recurrent genitourinary infections With regard to Omid's reconstructed bladder, we discussed several significant implications for . We reviewed the potential impact of the physiologic and anatomic changes of on her bladder function including potential changes in continence and compression/dysfunction of the Mitrofanoff due to compression from the gravid uterus. We also discussed implications for mode of delivery. On the one hand, vaginal delivery would certainly be the preferable option given her surgical history and successful vaginal delivery has been accomplished in women with this surgical history (Int Urogynecol J 2009;21:7, J Reprod Med 2005;51:9, Journal of Urology Sep 2020, 204). On the other hand, urgent/unplanned could be very complicated in this setting, and the risks of potential unplanned could outweigh the benefit of a potential vaginal delivery if successful, so planned is also reasonable. Regardless, it will be important to coordinate care with urology in the event that is required, as a urologist should be present in the OR. As Omid's urologist is in [place], we will consult the reconstructive urology service here at [facility] so that Omid can establish care. With regard to Omid's history of recurrent UTIs, we will send a baseline culture today and will start prophylactic antibiotics (macrobid 100 mg daily). We will plan for surveillance cultures monthly during the . Significant pelvic surgeries and bladder reconstruction may also increase risk for spontaneous PTB and FGR. CKD, Hypertension Omid's current renal function is stable with high normal/mildly elevated serum creatinine. All of her documented blood pressures at [facility] have been normal. She should have a complete metabolic panel at least once per trimester as well as a bsaeline assessment of urine protein (24 hour ordered today and instructions given). She should continue close follow up with her car washer. Nephrotoxic medications should be avoided. In addition, we reviewed risks of preeclampsia in this setting as well as other fetoplacental end-organ disease including FGR, abruption, PTB, and IUFD. She will start baby ASA (prescribed) and we will recommend serial growth scans monthly beginning at 24 weeks as well as weekly testing beginning at 32 weeks. I also prescribed a BP cuff and have asked her to monitor home BP 2x/week. Dilated aortic root We reviewed Omid's history of borderline dilated aortic root and association with increased risk of dissection/rupture in . She has no known history of connective tissue disorder or other genetic condition/aortopathy. We discussed the normal physiologic changes in including an approximately 50% increase in blood volume and cardiac output as well as an increase in resting heart rate and decrease in systemic vascular resistance with changes beginning in the first trimester and peaking in the third trimester around 28-32 weeks. We reviewed that these changes can lead to changes in her aorta and increase risk for complications. As such, surveillance with echocardiogram is important. She is scheduled for echocardiogram and cardio-OB consultation in July. Right now, her aortic root is only borderline dilated. Further and delivery management will depend on measurements later in and the presence of any potential underlying diagnosis. It does not appears that she has ever had cross-sectional cardiac imaging. History of spinal fusion Given Omid's history of spinal fusion, an anesthesia consult at 32 weeks is recommended. History of bowel/anal surgery Omid has had multiple bowel surgeries which increase risk of complications in the event of delivery and also anal surgery, with increased risk for rectal/anal trauma at the time of vaginal delivery. We discussed that there are potential increased risks with both forms of delivery and these considerations should contribute to the overall discussion about mode of delivery planning as above as progresses. Summary of Recommendations: -Routine care with [facility] co-management or transfer care to [facility] -If co-managed, she should see MFM at 20, 28, and 34 weeks for additional visits -Urine culture today, 24 hour urine protein ordered -ASA 81 mg (Rx sent), BP cuff (Rx sent) with plan for 2x/week monitoring -Prophylactic macrobid for duration of and 2 weeks -Referral to urology (reconstructive) to establish care at [facility] for delivery planning -Referral to genetics (medical vs. Cardiac) for consideration of maternal evaluation -Referral to Cardio-OB already in place -Referral to maternal care coordination to assist with the above -16, 20 week anatomy scans, serial growth scans every 4 weeks beginning at 24 weeks -Monthly urine culture, CMP qtrimester -Weekly testing (BPP or NST) beginning at 32 weeks -Anesthesia consult at approximately 32 weeks -Delivery planning (timing, mode) pending further progress with multidisciplinary involvement (urology, possible gen surg) Thank you for allowing us to participate in the care of this patient. Please do not hesitate to contact our office with any questions or concerns. I spent a total of 90 minutes on the date of the service which included preparing to see the patient, [id number] patient care, completing clinical documentation, obtaining and/or reviewing separately obtained history, performing a medically appropriate examination, counseling and educating the patient/family/caregiver, and ordering medications, tests, or procedures. SIGNATURE: Dunia Angeles MD PATIENT NAME: Agustina Pimentel DATE: May 07, 2024 TIME: 12:24 PM documented in this encounter [facility] 04-30-2024 Telephone encounter Note 1st risk assessment form submitted 04/30/24 Rudloph Lorenzo RN [facility] 04-30-2024 Miscellaneous Notes 1st risk assessment form submitted 04/30/24 Rudolph Lorenzo RN documented in this encounter [facility] 04-30-2024 Telephone encounter Note Called pt and ID by name and . Informed pt of normal/low risk NIPT results, pt would like results released to [facility] to view gender at home. Released results to pt chart. Karley Elam RN [facility] 04-30-2024 Miscellaneous Notes Called pt and ID by name and . Informed pt of normal/low risk NIPT results, pt would like results released to [facility] to view gender at home. Released results to pt chart. Karley Elam RN Patient's NIPT screening test came back normal! The gender will be listed. If still planning on surprise gender/gender reveal, please do not open the results listed as [id number] PLUS. Nahomy Carcamo PA-C documented in this encounter [facility] 04-30-2024 Telephone encounter Note Patient's NIPT screening test came back normal! The gender will be listed. If still planning on surprise gender/gender reveal, please do not open the results listed as [id number] PLUS. Nahomy Carcamo PA-C [facility] 04-27-2024 Telephone encounter Note Referral to MFM received. Cardiac OB has already reached out to patient to discuss scheduling. [facility] 04-27-2024 Miscellaneous Notes Referral to MFM received. Cardiac OB has already reached out to patient to discuss scheduling. documented in this encounter [facility] 04-27-2024 Telephone encounter Note Call to patient to schedule COB visit. Patient requests call back Tuesday as she is driving and unavailable to talk. Will call back. Lesa Agrawal RN [facility] 04-27-2024 Miscellaneous Notes Call to patient to schedule COB visit. Patient requests call back Tuesday as she is driving and unavailable to talk. Will call back. Lesa Agrawal RN documented in this encounter [facility] 04-24-2024 Note HNO ID: [id number] Author: NAHOMY CARCAMO PA-C Service: ? Author Type: Physician Medical Geneticist Type: Progress Notes Filed: 04/27/2024 11:03 Note Text: INITIAL OB ASSESSMENT HPI: Omid is a 23 year old /Multicultural Female here to establish Obstetrical Care. Patient's last menstrual period was 02/06/2024. from OB Dating Form. was planned Complaints: No OB History T0 L0 SAB0 IAB0 Ectopic0 Multiple0 Live Births0 Previous history: Prior : never History of 4th degree laceration: Perineal Laceration, 3rd or 4th degree N/A History of shoulder dystocia: Shoulder Dystocia N/A History of Hypertensive disorders including pre-eclampsia or gestational hypertension: Gestational Hypertension N/A Preeclampsia N/A History of gestational diabetes: Diabetes in Unanswered Patient's Risk Screening for delivery: Have you had a prior sood between 20w and 36w6d? No How many pregnancies have you had before? 0 Did you have a previous baby with a GBS Infection? No Please select all that apply for any prior : N/A MEDICAL/PSYCHOSOCIAL HISTORY: Severe bleeding with delivery N/A Thyroid Disease No Gestational Hypertension N/A Preeclampsia N/A Diabetes in N/A No results found for: ABORHD There is no height on file. Last Pap: History of abnormal pap: Abnormal Pap Yes Prior treatment for cervical dysplasia: none. Last HPV: History of STDs: Chlamydia; HPV Partner History of STDs: unknown Did you have a partner with Herpes? No Tobacco use: Yes E-Cigarette/Vaping Use: Yes Caffeine use: Yes Drug use: No Alcohol use: No Multivitamin with Folic acid: Yes Would refuse blood transfusion if medically necessary: No Social Needs: How often does this describe you? I don't have enough money to pay my bills: Never Within the past 12 months, have you worried that your food would run out before you had money to buy more? Never In the past 12 months, has lack of reliable transportation kept you from going to medical appointments or work, or from getting things needed for daily living? Never In the past 12 months, have you had any concerns about having a place to live, or about the condition or quality of your housing? Never Would you like more information on any of the following (please check all that apply)? 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 Yes Do you have a history of abuse or trauma that may impact your experience? Yes Are you currently employed? No Depression/Anxiety Screening: denies symptoms of depression. OB Depression and Anxiety Screening- This Encounter (since 04/23/2024) Over the past 2 weeks have you felt down, depressed, or hopeless? Negative Over the past two weeks, have you felt little interest or pleasure in doing things?? Negative Feeling nervous, anxious or on edge 0-Not at all Not being able to stop or control worrying 0-Not al all Anxiety Pre-Screening Total (If >/= 3 additional questions will be reviewed) 0 Genetic Screening: Partner present: No Patient verbalized knowledge of partner family health history: No Do you or your partner have any personal or family history of defects not previously discussed: Patient: Mitrofanoff, sacrococcygeal teratoma, bowel resection? Do you have history of a complicated by anomaly, genetic condition, or demise: No Low Dose ASA Screening: Screening for low dose aspirin use for the prevention of pre-eclampsia: High risk factors: Renal disease Moderate risk ractors: Nulliparity OB Risk Screening: Completed, no positive findings documented. Marital Status:Single Partner: not in the picture PAST MEDICAL HISTORY Diagnosis Date Generalized anxiety disorder Hydronephrosis PAST SURGICAL HISTORY Procedure Laterality Date BIOPSY/REMOVAL, LYMPH NODE(S) BLADDER SURGERY HX mitrofanoff SURG SACROCOC TERATOMA REDUCE BOWEL OBSTRUCTION Current Outpatient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 She had an appointment with Dr. Bell in August and states that she had labs and an US of kidneys at that time. States that everything was fine and was told to continue straight caths. Also, she saw an dulser doctor since she wants to get but [...] bladder referred to Adult Nephrology by her Washroom Attendant for transition of care. 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 She did not get labs done but [...] bladder referred to Adult Nephrology by her Washroom Attendant for transition of care. Her surgeries include [...] bladder referred to Adult Nephrology by her Washroom Attendant for transition of care. Her surgeries include bladder surgery including bladder augmentation with Mitrofanoff stoma and uretheral lengthening/reimplantation and cystoscopy for dilation of stoma. She has been followed in Pediatric Nephrology clinic for many years. She does straight catherizations and has (more content not included)...[facility]11-29-2021 Hospital Discharge instructions* Instructions* Ankush Mcmullen [...] intermittent catheterrizations as needed documented in this encounterDestinationRX Phone: evaluation note* Diagnosis CRI (chronic renal insufficiency), unspecified stage documented in this encounter [employer] Phone: evaluation note* Diagnosis Pelviectasis of kidney Hydronephrosis Neurogenic bladder Neurogenic bladder, NOS documented in this encounter [facility] Phone: [email or web address] note* Diagnosis Neurogenic bladder Neurogenic bladder, NOS Pelviectasis of kidney Hydronephrosis Mitrofanoff appendicovesicostomy present (HCC) documented in this encounter [facility] Phone: [email or web address] note* Diagnosis Neurogenic bladder Neurogenic bladder, NOS Currarino syndrome Aortic root dilatation (HCC) Aortic ectasia, unspecified site documented in this encounter [facility] Phone: [email or web address] note* Diagnosis CRI (chronic renal insufficiency), unspecified stage documented in this encounter [facility] Phone: evaluation note* Diagnosis Abdominal cramps- Primary Abdominal pain, unspecified site Vaginal spotting Other specified noninflammatory disorder of vagina Acute cystitis with hematuria Acute cystitis documented in this encounter [facility] [employer] Phone: [email or web address] note* Diagnosis Smear, vaginal, as part of routine gynecological examination- Primary Special screening for malignant neoplasms, vagina Screening for STD (sexually transmitted disease) Encounter for gynecological examination without abnormal finding [facility] Diagnosis BV (bacterial vaginosis)- Primary Unspecified vaginitis and vulvovaginitis documented [facility]* Diagnosis Chlamydia infection- Primary Unspecified chlamydial infection, in conditions classified elsewhere and of unspecified site documented [facility] this encounter [facility]* Diagnosis Cervical smear, as part of routine gynecological examination- Primary Screening for malignant neoplasm of the cervix documented in this encounter [facility]* Diagnosis Condyloma- Primary Condyloma acuminatum HPV (human papilloma virus) anogenital infection Human papillomavirus in conditions classified elsewhere and of unspecified site documented in this encounter [facility]* Diagnosis Supervision of high risk , antepartum- Primary Aortic root dilation (HCC) Thoracic aortic ectasia Chronic renal impairment, unspecified CKD stage Hydronephrosis of left kidney Hydronephrosis 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 Neoplasm of uncertain behavior of bone and articular cartilage History of maternal hypertension Personal history of other genital system and obstetric disorders ASCUS with positive high risk HPV cervical Cervical high risk human papillomavirus (HPV) DNA test positive 11 weeks gestation of state, incidental [facility] Diagnosis Aortic root dilation (HCC)- Primary Thoracic aortic ectasia [facility]* Diagnosis screening for malformation using ultrasonics- Primary Encounter for routine screening for malformation using ultrasonics 13 weeks gestation of state, incidental History of maternal hypertension Personal history of other genital system and obstetric disorders Enlarged aorta (HCC) Other specified disorders of arteries and arterioles Chronic renal impairment, unspecified CKD stage History of sacrococcygeal teratoma of sacrum Neoplasm of uncertain behavior of bone and articular cartilage Mitrofanoff appendicovesicostomy present (HCC) documented [facility] this [facility]* Diagnosis Supervision of high risk , antepartum- Primary Enlarged aorta (HCC) Other specified disorders of arteries and arterioles Aortic root dilation (HCC) Thoracic aortic ectasia Hydronephrosis of left kidney Hydronephrosis Chronic renal impairment, unspecified CKD stage Mitrofanoff appendicovesicostomy present (HCC) History of maternal hypertension Personal history of other genital system and obstetric disorders Observation for suspected genetic condition Observation for suspected genetic or metabolic condition History of sacrococcygeal teratoma of sacrum Neoplasm of uncertain behavior of bone and articular cartilage Generalized anxiety disorder Recurrent urinary tract infection Urinary tract infection, site not specified Scoliosis, unspecified scoliosis type, unspecified spinal region H/O abdominal surgery Other postprocedural status documented in this [facility]* Diagnosis screening for malformation using ultrasonics- Primary Encounter for routine screening for malformation using ultrasonics Supervision of high risk , antepartum 16 weeks gestation of state, incidental [facility]* Diagnosis Supervision of high risk in second trimester- Primary Unspecified high-risk 16 weeks gestation of state, incidental History of sacrococcygeal teratoma of sacrum Neoplasm of uncertain behavior of bone and articular cartilage History of maternal hypertension Personal history of other genital system and obstetric disorders Aortic root dilation (HCC) Thoracic aortic ectasia History of bowel resection documented in this encounter [facility] Discharge instructions* Attachments The following attachments cannot be sent through Care Everywhere. * UTI (Urinary Tract Infection): Female (Citizen Of [place]) * Abdominal Pain (Citizen Of [place]) * Vaginal Bleeding (Citizen Of [place]) documented in this encounterBON StoryTo[employer] Work Phone: InstructionsNot on filedocumented in this encounter [facility] filedocumented in this encounter [facility] System[facility]ructionsNot on filedocumented in this encounter [facility]ructionsNot on filedocumented in this encounter [facility] SystemInstructionsNot on filedocumented in this encounter [facility] SystemInstructionsNot on filedocumented in this encounter [facility] SystemInstructionsNot on filedocumented in this encounter [facility] System[facility] for referral (narrative)* Outpatient Procedure (Routine) - New Request Specialty Diagnoses / Procedures Referred By Kassie guillen Referred To [facility] Diagnoses Enlarged aorta (HCC) Procedures ECHO Dunia Angeles MD [address] [place] [id number] [facility] [place] [address] Referral ID Status Reason Start Date Expiration Date Visits Requested Visits Authorized [id number] New Request Auto-Generat ed Referral 05/09/2024 05/09/2025 1 1 * Consult, Test, Treat (Routine) - Authorized Specialty Diagnoses / Procedures Referred By Kassie guillen Referred To Contact Diagnoses Aortic root dilation (HCC) Procedures CONSULT TO MEDICAL GENETICS - CARDIOVASCULAR OFFICE/OUTPATIENT [facility] 60 MINUTES MEDICAL GENETICS COUNSELING EACH 30 MINUTES Dunia Angeles MD [address] [place] [address] [place] [address] Referral ID Status Reason Start Date Expiration Date Visits Requested Visits Authorized [id number] Authorized PCP Requested Referral Auto-Generate d Referral 05/09/2024 05/09/2025 1 1 * Consult, Test, Treat (Routine) - Authorized Specialty Diagnoses / Procedures Referred By Kassie t Referred To Contact Diagnoses Observation for suspected genetic condition Procedures CONSULT TO MEDICAL GENETICS - GENERAL OFFICE/OUTPATIENT [facility] 60 MINUTES MEDICAL GENETICS COUNSELING EACH 30 MINUTES Dunia Angeles MD [address] [place] [address] [address] Referral ID Status Reason Start Date Expiration Date Visits Requested Visits Authorized [id number] Authorized PCP Requested Referral Auto-Generate d Referral 05/09/2024 05/09/2025 1 1 * Diagnostic Procedure Only (Routine) - New Request Specialty Diagnoses / Procedures Referred By Kassie guillen Referred To Contact [facility] Diagnoses History of maternal hypertension Procedures OBSTETRIC ULTRASOUND WHI US PREG UTERUS AFTER 1ST TRIMEST GESTATION Dunia Angeles MD [address] [place] [address] [address] Referral ID Status Reason Start Date Expiration Date Visits Requested Visits Authorized [id number] New Request Auto-Generat ed Referral 05/09/2024 05/09/2025 1 1 * Consult, Test, Treat (Routine) - Authorized Specialty Diagnoses / Procedures Referred By Contac t Referred To Contact Urology Diagnoses Mitrofanoff appendicovesicostomy present (HCC) Procedures CONSULT TO UROLOGY OFFICE/OUTPATIENT [facility] 60 MINUTES Dunia Angeles MD [address] [place] [address] Referral ID Status Reason Start Date Expiration Date Visits Requested Visits Authorized [id number] Authorized PCP Requested Referral 05/07/2024 05/07/2025 1 1 [facility] for referral (narrative)* Diagnostic Procedure Only (Routine) - New Request Specialty Diagnoses / Procedures Referred By Kassie guillen Referred To Contact [facility] Diagnoses Supervision of high risk , antepartum screening for malformation using ultrasonics 16 weeks gestation of Procedures OBSTETRIC ULTRASOUND WHI US PREG UTERUS AFTER 1ST [place] [address] [place] [address] [place] [id number] Referral ID Status Reason Start Date Expiration Date Visits Requested Visits Authorized [id number] New Request Auto-Generat ed Referral 05/30/2024 05/30/2025 1 1 [facility] for visit Narrative* Auth/Cert Specialty Diagnoses / Procedures Referred By Kassie guillen Referred To Contact Diagnoses Neurogenic bladder Bladder stone NEUROGENIC BLADDER, BLADDER STONE Procedures CA OFFICE/OUTPT VISIT,PROCEDURE ONLY CA CYSTO/URETERO/PYELOSCOPY, CALCULUS TX HOLMIUM- CYSTOSCOPY, LASER LITHOTRIPSY OF BLADDER STONE Lex Willson MD [address] [address] [facility] [address] [place] [address] Referral ID Status Reason Start Date Expiration Date Visits Re quested Visits Authorized [id number] 1 1 [facility] Phone: reason for visit Narrative* Diagnostic Procedure Only (Routine) - Closed Specialty Diagnoses / Procedures Referred By Kassie t Referred To Contact [facility] Diagnoses Supervision of high risk , antepartum Procedures OBSTETRIC ULTRASOUND WHI US PREG UTERUS AFTER 1ST TRIMEST GESTATION Nahomy Carcamo PA-C [address] [place] [address] [facility] [address] [place] [address] Referral ID Status Reason Start Date Expiration Date V isits Requested Visits Authorized [id number] Closed Auto-Generate d Referral 04/24/2024 04/24/2025 1 1 [facility] Discharge Instructions * Instructions* Dora Guevara RN [...] 03/25/2020 11:42 AM EDT [address] [facility] for phase2 documented in this encounter Advance Directives No Advanced Directives Records FoundDocuments on File Type Date Recorded Patient Itinerant Teacher Assistant Expl anation Advance Directives and Living Will Power of Slurry Plant Operator Documents on File Type Date Recorded Patient Itinerant Teacher Assistant Expl anation Advance Directives and Living Will Power of Slurry Plant Operator Documents on File Type Date Recorded Patient Itinerant Teacher Assistant Expl anation ACP-Advance Directive ACP-Power of Slurry Plant Operator Documents on File Type Date Recorded Patient Itinerant Teacher Assistant Expl anation ACP-Advance Directive ACP-Power of Slurry Plant Operator Latest Code Status on File Code [...] COMPLETE Debbie Desai APRN - CNP [address] [address] Status Reason Specialty Diagnoses / Procedures Re ferred By Contact Referred To Contact [facility] Diagnoses Neurogenic bladder Pelviectasis of kidney Mitrofanoff appendicovesicostomy present (HCC) Procedures US RENAL COMPLETE Lex Willson MD [address] [address] Specialty Diagnoses / Procedures Referred By Contac t Referred To Contact Kathryn Nettles MD [address] [place] [address] Referral ID Status Reason Start Date Expiration Date V isits Requested Visits Authorized [id number] Pending Review 1 1 Specialty Diagnoses / Procedures Referred By Contac t Referred To Contact Diagnoses Supervision of high risk , antepartum Aortic root dilation (HCC) Chronic renal impairment, unspecified CKD stage 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 History of maternal hypertension Procedures CONSULT TO MATERNAL MEDI OFFICE/OUTPATIENT [facility] 60 MINUTES Nahomy Carcamo PA-C [address] [place] [address] Referral ID Status Reason Start Date Expiration Date Visits Requested Visits Authorized [id number] Authorized PCP Requested Referral Auto-Generate d Referral 04/27/2024 04/27/2025 1 1 Specialty Diagnoses / Procedures Referred By Contac t Referred To Contact [facility] Diagnoses Supervision of high risk , antepartum Procedures NUCHAL TRANSLUCENCY WHI US NUCHAL TRANSLUCENCY 1ST GESTATION Nahomy Carcamo PA-C [address] [place] [address] [address] Referral ID Status Reason Start Date Expiration Date Visits Requested Visits Authorized [id number] Authorized Auto-Generat ed Referral 04/24/2024 04/24/2025 1 1 Specialty Diagnoses / Procedures Referred By Contac t Referred To Contact [facility] Diagnoses Supervision of high risk , antepartum Procedures OBSTETRIC ULTRASOUND WHI US PREG UTERUS AFTER 1ST TRIMEST 1 GESTATION Nahomy Carcamo PA-C [address] [place] [address] [address] Referral ID Status Reason Start Date Expiration Date Visits Requested Visits Authorized [id number] Authorized Auto-Generat ed Referral 04/24/2024 04/24/2025 1 1 Additional Source Comments Reason for Visit (unrecogniz ed section and content) Status Reason Specialty Diagnoses / Procedures Re ferred By Contact Referred To Contact Diagnoses Neurogenic bladder Mitrofanoff appendicovesicostomy present (HCC) NEUROGENIC BLADDER, MITROFANOFF Procedures CA CYSTOURETHROSCOPY CYSTOSCOPY (SURVEILLANCE) Amelia Rich MD [address] [place] [address] [facility] Status Reason Specialty Diagnoses / Procedures Referre d By Contact Referred To Contact [facility] Diagnoses Pelviectasis of kidney Neurogenic bladder Procedures US RENAL COMPLETE Debbie Desai APRN - SAM [address] [address] Status Reason Specialty Diagnoses / Procedures Re ferred By Contact Referred To Contact [facility] Diagnoses Neurogenic bladder 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 Maternal Med [address] [place] [address] Referral ID Status Reason Start Date Expiration Date Visits Requested Visits Authorized [id number] Pending Review Specialty Services Required 11/07/2023 11/06/2024 1 1 Reason Comments Herpes lesion treatment options Reason Comments PEAC Care Coordination Reason Comments Initial OB Visit Reason Comments PRAF Reason Comments US Specialty Diagnoses / Procedures Referred By Contac t Referred To Contact [facility] Diagnoses Supervision of high risk , antepartum Procedures NUCHAL TRANSLUCENCY WHI US NUCHAL TRANSLUCENCY 1ST GESTATION aNhomy Carcamo PA-C [address] [place] [address] [facility] [address] [place] [address] Referral ID Status Reason Start Date Expiration Date V isits Requested Visits Authorized [id number] Closed Auto-Generate d Referral 04/24/2024 04/24/2025 1 1 Reason Comments Consult Reason Comments Patient Update Headache concerns in early Reason Comments Care INFORMATION SOURCE (unrecogn ized section and content) DATE CREATED AUTHOR 03/26/2020 [facility] DATE CREATED AUTHOR AUTHOR'S ORGANIZ ATION 05/16/2022 [facility] DATE CREATED AUTHOR AUTHOR'S ORGANIZ ATION 06/10/2022 [facility] DATE CREATED AUTHOR AUTHOR'S ORGANIZ ATION 03/25/2023 [facility] DATE CREATED AUTHOR AUTHOR'S ORGANIZ ATION 01/04/2024 [facility] DATE CREATED AUTHOR AUTHOR'S ORGANIZ ATION 01/12/2024 [facility] DATE CREATED AUTHOR AUTHOR'S ORGANIZ ATION 03/13/2024 [facility] DATE CREATED AUTHOR AUTHOR'S ORGANIZ ATION 04/06/2024 [facility] DATE CREATED AUTHOR AUTHOR'S ORGANIZ ATION 04/19/2024 [facility] DATE CREATED AUTHOR AUTHOR'S ORGANIZ ATION 04/21/2024 [facility] DATE CREATED AUTHOR AUTHOR'S ORGANIZ ATION 05/17/2024 [facility] DATE CREATED AUTHOR AUTHOR'S ORGANIZ ATION 06/01/2024 [facility] Scheduled Active and Recently Administ ered Medications [...] water for irrigation (CANCELED) PRN, Starting on 09/14/21 at 1359, Intra-op 1359 (Given - Provid er: Lex Willson MD - Comment: POURED TO BACK TABLE) Scheduled Medication Order 06/04/2022 06/05/2022 06/06/2022 0.9 % sodium chloride bolus (COMPLETED) 1,000 mL (21.6 mL/kg), IntraVENous, at 495.9 mL/hr, Administer over 121 Minutes, ONCE, On 06/06/22 at 0030, For 1 dose 0048 (New Bag - Prov ider: Judith Powell RN)0208 (Stopped - Provider: Sandi Thomas RN) Care Teams (unrecognized sec tion and content) Field Contact Technician Relationship Specialty [place] [address] [address] PCP - General Family Medicine 02/18/21 Field Contact Technician Relationship Specialty Start Date End Date Apurva Torres DO PCP - General Family Medicine 02/18/21 Field Contact Technician Relationship Specialty Start Date End Date Apurva Torres DO [address] [place] [address] PCP - General Family Medicine 12/02/20 Field Contact Technician Relationship Specialty Start Date End Date Apurva Torres DO [address] [place] [address] PCP - General Family Medicine 12/02/20 Field Contact Technician Relationship Specialty Start Date End Date Apurva Torres DO [address] [place] [address] PCP - General Family Medicine 12/02/20 Field Contact Technician Relationship Specialty Start Date End Date Apurva Torres DO [address] [place] [address] PCP - General Family Medicine 12/02/20 Field Contact Technician Relationship Specialty Start Date End Date Apurva Torres DO [address] [place] [address] PCP - General Family Medicine 12/02/20 Field Contact Technician Relationship Specialty Start Date End Date Apurva Torres DO [address] [place] [address] PCP - General Family Medicine 12/02/20 Field Contact Technician Relationship Specialty Start Date End Date Apurva Torres DO [address] [place] [address] PCP - General Family Medicine 12/02/20 Field Contact Technician Relationship Specialty Start Date End Date Apurva Torres DO [address] [place] [address] PCP - General Family Medicine 12/02/20 Field Contact Technician Relationship Specialty Start Date End Date Alanna Cummings CNP [address] [place] [address] Referring Polishing Machine Tender 04/12/24 Field Contact Technician Relationship Specialty Start Date End Date Alanna Cummings CNP [address] [place] [address] Referring Polishing Machine Tender 04/12/24 Field Contact Technician Relationship Specialty Start Date End Date Alanna Cummings CNP [address] [place] [address] Referring Polishing Machine Tender 04/12/24 Field Contact Technician Relationship Specialty Start Date End Date Alanna Cummings CNP [address] [place] [address] Referring Polishing Machine Tender 04/12/24 Field Contact Technician Relationship Specialty Start Date End Date Alanna Cummings CNP [address] [place] [address] Referring Polishing Machine Tender 04/12/24 Field Contact Technician Relationship Specialty Start Date End Date Alanna Cummings CNP [address] [place] [address] Referring Polishing Machine Tender 04/12/24 Field Contact Technician Relationship Specialty Start Date End Date Alanna Cummings CNP [address] [place] [address] Referring Polishing Machine Tender 04/12/24 Field Contact Technician Relationship Specialty Start Date End Date Alanna Cummings CNP [address] [place] [address] Referring Polishing Machine Tender 04/12/24 Field Contact Technician Relationship Specialty Start Date End Date Alanna Cummings CNP [address] [place] [address] Referring Polishing Machine Tender 04/12/24 Field Contact Technician Relationship Specialty Start Date End Date Alanna Cummings CNP [address] [place] [address] Referring Polishing Machine Tender 04/12/24 Field Contact Technician Relationship Specialty Start Date End Date Alanna Cummings SAM [address] [place] [address] Referring Polishing Machine Tender 04/12/24 Lesa Agrawal RN Trim Die Maker Maternal Medicine 05/17/24 11/26/24 Field Contact Technician Relationship Specialty Start Date End Date Alanna CummingsSAM [address] [place] [address] Referring Polishing Machine Tender 04/12/24 Lesa Agrawal RN Trim Die Maker Maternal Medicine 05/17/24 11/26/24 Field Contact Technician Relationship Specialty Start Date End Date Alanna CummingsSAM [address] [place] [address] Referring Polishing Machine Tender 04/12/24 Lesa Agrawal RN Trim Die Maker Maternal Medicine 05/17/24 11/26/24 Source Comments (unrecognize d section and content) In the event this informatio n is protected by the Federal Confidentiality of Alcohol and Drug Abuse Patient Records regulations: The Federal rules restrict any use of the information to criminally investigate or prosecute any alcohol or drug abuse patient.[facility] the event this information is protected by the Federal Confidentiality of Alcohol and Drug Abuse Patient Records regulations: The Federal rules restrict any use of the information to criminally investigate or prosecute any alcohol or drug abuse patient.[facility] Hospital[facility] the event this information is protected by the Federal Confidentiality of Alcohol and Drug Abuse Patient Records regulations: The Federal rules restrict any use of the information to criminally investigate or prosecute any alcohol or drug abuse patient.[facility] Hospital[facility] the event this information is protected by the Federal Confidentiality of Alcohol and Drug Abuse Patient Records regulations: The Federal rules restrict any use of the information to criminally investigate or prosecute any alcohol or drug abuse patient.[facility] Hospital[facility] the event this information is protected by the Federal Confidentiality of Alcohol and Drug Abuse Patient Records regulations: The Federal rules restrict any use of the information to criminally investigate or prosecute any alcohol or drug abuse patient.[facility] Hospital[facility] the event this information is protected by the Federal Confidentiality of Alcohol and Drug Abuse Patient Records regulations: The Federal rules restrict any use of the information to criminally investigate or prosecute any alcohol or drug abuse patient.[facility] HospitalIn the event this information is protected by the Federal Confidentiality of Alcohol and Drug Abuse Patient Records regulations: The Federal rules restrict any use of the information to criminally investigate or prosecute any alcohol or drug abuse patient.[facility] HospitalIn the event this information is protected by the Federal Confidentiality of Alcohol and Drug Abuse Patient Records regulations: The Federal rules restrict any use of the information to criminally investigate or prosecute any alcohol or drug abuse patient.[facility] HospitalIn the event this information is protected by the Federal Confidentiality of Alcohol and Drug Abuse Patient Records regulations: The Federal rules restrict any use of the information to criminally investigate or prosecute any alcohol or drug abuse patient.[facility] HospitalIn the event this information is protected by the Federal Confidentiality of Alcohol and Drug Abuse Patient Records regulations: The Federal rules restrict any use of the information to criminally investigate or prosecute any alcohol or drug abuse patient.[facility] HospitalIn the event this information is protected by the Federal Confidentiality of Alcohol and Drug Abuse Patient Records regulations: The Federal rules restrict any use of the information to criminally investigate or prosecute any alcohol or drug abuse patient.[facility] HospitalIn the event this information is protected by the Federal Confidentiality of Alcohol and Drug Abuse Patient Records regulations: The Federal rules restrict any use of the information to criminally investigate or prosecute any alcohol or drug abuse patient.[facility] HospitalIn the event this information is protected by the Federal Confidentiality of Alcohol and Drug Abuse Patient Records regulations: The Federal rules restrict any use of the information to criminally investigate or prosecute any alcohol or drug abuse patient.[facility] FOR RECORDS PERTAINING TO PATIENTS WHO ARE [...] BASED ON THE PRIMARY CLINICAL RECORDS. [facility]. provides no warranty or guarantee of the accuracy or completeness of information in this document.
--- NOTE | 2024-06-14 23:54 | ED_ITS ---
HPI - Abdominal Pain General Chief Complaint: Abdominal Pain Stated Complaint: 18weeks abd pain Time Seen by Provider: 06/14/24 23:12 Source: patient Mode of arrival: walk-in Limitations: no limitations History of Present Illness HPI narrative: 23-year-old female to the emergency department chief complaint of intermittent cramping in . She is currently 18 weeks . First . She follows with high risk MFM at [facility]. Patient reports she has had several ultrasounds which have confirmed a normal . 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 She reports that she has had cramping abdominal pain has been ongoing for the last few weeks. It occurs daily. She denies any vaginal bleeding or increased discharge. She denies any fever, sweats, chills, nausea, vomiting, diarrhea. She reports normal bowel movements. She has not discussed this with her OB. Related Data Home Medications ?Medication ?Instructions ?Recorded ?Confirmed aspirin 81 mg tablet,delayed mg 06/14/24 release vitamin with calcium tab 06/14/24 no.72-iron 27 mg-folic acid 1 mg tablet (WesTab Plus) Allergies Allergy/AdvReac Type Severity Reaction Status Date / Time ibuprofen Allergy Mild Unknown Verified 06/14/24 23:24 Review of Systems ROS Status of ROS 10 or more systems reviewed and unremark able except as noted in history and below [facility] Social History Smoking status: Current every day smoker Exam Narrative Exam Narrative: VITALS: I have reviewed the triage vital signs. GENERAL: Well developed, well appearing adult in no acute distress. NEURO: Alert and oriented. Moves all extremities. Face is symmetric and expressive. EYES: PERRL. No scleral icterus or conjunctival injection. No discharge. HENT: Normocephalic, atraumatic. Hearing is grossly intact. Nares grossly patent and without discharge. Mucous membranes moist. NECK: No JVD. Patient moves neck without restriction. CARDIO: Rhythm regular. Normal rate. No murmur, rub, or gallop. Pulses equal bilaterally in the upper and lower extremity. No lower extremity edema. PULM: Lungs clear to auscultation in all shearer. No wheezes, rales, or rhonchi. No conversational dyspnea. No splinting, stridor, or accessory muscle use. GI/: Abdomen is soft and non-tender. Normoactive bowel sounds. EXTREMITIES: Symmetric muscle bulk. No joint swelling. No clubbing, cyanosis, or deformity. SKIN: Warm and dry. Normal turgor. No rash or lesions appreciated. PSYCH: Mood, affect, and interaction is appropriate to the setting. Constitutional Vital Signs, click to edit/add: Last Vital Signs Temp 98.9 F 06/14/24 23:19 Pulse 94 H 06/14/24 23:19 Resp 18 06/14/24 23:19 BP 112/84 06/14/24 23:19 Pulse Ox 98 06/14/24 23:19 O2 Del Method Room Air 06/14/24 23:19 Course Vital Signs Vital signs: Vital Signs Temperature 98.9 F 06/14/24 23:19 Pulse Rate 94 H 06/14/24 23:19 Respiratory Rate 18 06/14/24 23:19 Blood Pressure 112/84 06/14/24 23:19 Pulse Oximetry 98 06/14/24 23:19 Oxygen Delivery Method Room Air 06/14/24 23:19 Temperature 98.9 F 06/14/24 23:19 Pulse Rate 94 H 06/14/24 23:19 Respiratory Rate 18 06/14/24 23:19 Blood Pressure 112/84 06/14/24 23:19 Pulse Oximetry 98 06/14/24 23:19 Oxygen Delivery Method Room Air 06/14/24 23:19 MDM - Abdominal Pain MDM Narrative Medical decision making narrative: 23-year-old female to the emergency department with chief complaint of weeks of cramping lower abdominal pain in the setting of 18-week gestation . Vital stable, the patient is afebrile. Her abdominal examination is benign. She has had several ultrasounds already including here on 03/18, [facility] on 04/04 and [facility] on 04/18. She has had a viable intrauterine identified on each of these scans. 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 Will obtain an hCG level and urinalysis. Urinalysis is unremarkable. hCG is appropriate for gestational age. Utrasound is not available in the emergency department at the time of this encounter. She is given an appointment for 4 PM tomorrow. Results to her [facility] [employer]. She is instructed to call her [employer] tomorrow for follow-up. Return precautions were discussed. All questions were answered. The patient was discharged home. Lab Data Attestation: I reviewed the patient's lab results. Labs: Lab Results 06/14/24 06/15/24 Range/Units 23:50 00:00 HCG, Quant 26747 mIU/mL Urine Color Yellow (YELLOW) Urine Clarity Clear (CLEAR) Urine pH 6.5 (5.0-9.0) Ur Specific [place] 1.015 (1.005-1.025) Urine Protein Negative (NEG/TRACE) mg/dL Urine Glucose (UA) Negative (NEGATIVE) mg/dL Urine Ketones Negative (NEGATIVE) mg/dL Urine Occult Blood Negative (NEGATIVE) Urine Nitrite Negative (NEGATIVE) Urine Bilirubin Negative (NEGATIVE) Urine Urobilinogen 0.2 (0.2-1.0) EU/dL Ur Leukocyte Esterase Negative (NEGATIVE) Urine RBC 0-2 (0-2) #/HPF Urine WBC 5-10 A (NONE SEEN) #/HPF Ur Squamous Epith Cells Rare (NONE/RARE) #/LPF Urine Crystals None seen (None Seen) #/HPF Urine Bacteria Small A (NONE SEEN) #/HPF Urine Casts None seen (NONE SEEN) #/LPF Urine Mucus None seen (NONE SEEN) Ur Culture Indicated? Yes Discharge Plan Discharge Stand Alone Forms: Work/School Release, Portal Instructions Chief Complaint: Abdominal Pain Clinical Impression: Pelvic cramping Patient Disposition: Home, Self-Care Time of Disposition Decision: : Condition: Good Mode of Transportation: Private Vehicle Prescriptions / Home Meds: No Action aspirin 81 mg tablet,delayed release (DR/EC) WesTab Plus 27 mg iron- 1 mg tablet Print Language: Belarusian Instructions: (ED), at 15 to 18 Weeks (ED) Additional Instructions: Ultrasound appointment at [place] tomorrow at 4PM. Call your OBGYN to request discussion of results. Copy of results requested to be sent to your OBGYN. Referrals: Physician,Non-Staff, MD [Primary Care Provider] - 1 week
[2024-06-15 00:10] LABS: Bilirubin Urine NEGATIVE (NEGATIVE); Blood Urine NEGATIVE (NEGATIVE); Clarity Urine CLEAR (CLEAR); Color Urine YELLOW (YELLOW); Glucose Urine UA NEGATIVE (NEGATIVE); Ketones Urine NEGATIVE (NEGATIVE); Leukocyte Esterase Urine NEGATIVE (NEGATIVE); Nitrite Urine NEGATIVE (NEGATIVE); Protein Urine NEGATIVE (NEG/TRACE); Specific Gravity Urine 1.015 (1.005-1.025); Urobilinogen Urine 0.2 EU/dL (0.2-1.0); pH Urine 6.5 (5.0-9.0)
[2024-06-15 00:23] LABS: Bacteria Urine SMALL #/HPF (NONE SEEN); Cast Seen? NONE SEEN #/LPF (NONE SEEN); Crystals Seen? None Seen #/HPF (None Seen); Mucus Urine NONE SEEN (NONE SEEN); RBC Urine 0-2 #/HPF (0-2); Squamous Epithelial Cell Urine RARE #/LPF (NONE/RARE); Urine Culture Indicated YES
[2024-06-15 00:48] LABS: HCG Quantitative 17963 mIU/mL
== END 2024-06-15 01:13 | disposition home or self-care (01) ==
PROVIDERS: Emergency Provider Student in an Organized Health Care Education/Training Program
DX: O26.892 Other specified pregnancy related conditions, second trimester (principal); R10.2 Pelvic and perineal pain; O26.832 Pregnancy related renal disease, second trimester; N18.30 Chronic kidney disease, stage 3 unspecified; O99.332 Smoking (tobacco) complicating pregnancy, second trimester; F17.200 Nicotine dependence, unspecified, uncomplicated
CPT/HCPCS: 36415; 80048; 81001; 84702; 87086; 99283

== ENCOUNTER 2024-06-30 23:11 | Emergency (ER) | payer OTHER, SELFPAY ==
--- OUTSIDE RECORDS SUMMARY | 2024-06-30 23:17 | XMS_ITS | CCD ---
Author Organization [facility] Care Team Providers Care Maintenance Service Dispatcher Name Role Phone Ginny Varela Primary Care [...] Consulting Unavailable RUMSCHLAG, APURVA Primary Care Unavailable DR RAMÍREZ VILLASENOR Admitting Unavailable DR RAMÍREZ VILLASENOR Attending Unavailable DR RAMÍREZ VILLASENOR Consulting Unavailable [facility] Primary Care Unavailable WALT COOK [...] WANG Consulting Unavailable SURENDRA, JACK Admitting Unavailable ERY BENDERYL Attending Unavailable SURENDRA, JACK Consulting Unavailable RUMSCHLAG, APURVA Primary Care Unavailable DIAB ., ANGELES Consulting Unavailable WILL DUMONTID Admitting Unavailable MEHDI DUMONT Attending Unavailable RUMSCHLAG, APURVA Primary Care Unavailable MEHDI DUMONT Consulting Unavailable Rumschlag DO, Apurva K Primary Care Provider TANYAANDERSON LOR Attending Unavailable KATIA MEI Attending Unavailable HAMIDA, KATIA Referring Unavailable RUMSCHLAG, APURVA Primary Care Unavailable JAKOB, KATHRYN L Attending [...] Unavailable RUMSCHLAG, APURVA K Primary Care Unavailable Zoila Alanna VARGAS Unavailable [phone] CONSTANCE LOJA I Attending Unavailable RUMSCHLAG, APURVA K Referring Unavailable RUMSCHLAG, APURVA K Primary Care Unavailable JAKOB, KATHRYN L Referring Unavailable RUMSCHLAG, APURVA K Primary Care Unavailable AC MARIEE Attending Unavailable JAKOB, KATHRYN L Referring Unavailable RUMSCHLAG, APURVA K Primary Care Unavailable Lesa Agrawal RN Unavailable Unavailable GOLIVERKARIME Attending Unavailable RUMSCHLAG, APURVA K Primary Care Unavailable GOLIVER, KARIME Hutton Attending Unavailable GOLIVERKARIME Referring Unavailable RUMSCHLAG, APURVA K Primary Care Unavailable GOLIVER, KARIME Hutton Attending Unavailable GOLIVER, KARIME Hutton Referring Unavailable RUMSCHLAG, APURVA K Primary Care Unavailable ZOILA ALANNA M Referring Unavailable RUMSCHLAG, APURVA K Primary Care Unavailable ZOILA ALANNA M Referring Unavailable RUMSCHLAG, APURVA K Primary Care Unavailable ZOILA ALANNA M Attending Unavailable ZOILA, ALANNA M Referring Unavailable RUMSCHLAG, APURVA K Primary Care Unavailable RUMSCHLAG, APURVA K Primary Care Unavailable MICHAEL DICKERSON Attending Unavailable RUMSCHLAG, APURVA K Primary Care Unavailable SULEMAN STEVENSON Attending Unavailable RUMSCHLAG, APURVA K Primary Care Unavailable GOLIVER, KARIME Hutton Attending Unavailable JAKOB, KATHRYN L Referring Unavailable RUMSCHLAG, APURVA K Primary Care Unavailable DUNIA ANGELES Attending NAHOMY Shi Referring Unavailable KARELY NUNEZ Attending Unavailable NAHOMY CARCAMO Referring Unavailable DUNIA ANGELES Attending NAHOMY Shi Attending Unavailable JUDITH CAMPOS Attending UnavailNAHOMY Padilla Referring Unavailable DUNIA ANGELES Attending NAHOMY Shi Referring Unavailable DUNIA ANGELES Attending JUDITH Davis Referring UnavailNAHOMY Padilla Referring Unavailable Allergies Allergy Classification Reported Allergen(s) Allergy Type Date of Onset Reaction(s) Facility Aspirin (1 source) Aspirin; Translations: [ASPIRIN] Drug Allergy 3 [facility] diphenhydrAMINE (1 source) diphenhydrAMINE; Translations: [DIPHENHYDRAMINE ] Drug Allergy 3 [facility] NSAIDs (1 source) Ibuprofen; Translations: [IBUPROFEN] Drug Allergy 2 [facility] (20 sources) Ibuprofen; Translations: [IBUPROFEN] Drug Allergy 2 Other (See Comments), Other: See Comments [facility] (1 source) Ibuprofen Drug Allergy 3 [facility] Repository (11 sources) Aspirin; Translations: [ASPIRIN] Drug Allergy 3 [facility] (20 sources) diphenhydrAMINE; Translations: [DIPHENHYDRAMINE ] Drug Allergy 3 Unknown [facility] Medications Current Medications Medication Drug Class(es) Dates Sig (Normalized) Sig (Original) acetaminophen (TYLENOL) 40 MG/0.4 ML infant drops (3 sources) Start: 06-22-2006 acetaminophen (TYLENOL) 40 MG/0.4 ML infant drops ACETAMINOPHEN ORAL 0 06/22/2006 Active Acetaminophen / HYDROcodone (1 source) Opioid Agonist Start: 03-25-2020 End: 03-25-2020 HYDROcodone-acetamin ophen (NORCO) 5-325 MG per tablet 1 tablet [id number] 200 actuat albuterol 0.09 mg/actuat metered dose [...] the lungs every 4 hours 0 Active ampicillin 500 mg oral capsule (2 sources) Penicillin-class Antibacterial Start : 06-21 ampicillin (PRINCIPEN) 500 mg capsule 06/21/2024 Active aspirin 81 mg delayed release oral tablet (8 sources) Platelet Aggregation Inhibitor, Nonsteroidal Anti-inflammatory Drug Start : 05-07 End: 11-03 take 1 tablet by mouth once daily aspirin, enteric coated (ECOTRIN LOW STRENGTH) 81 mg EC tablet Take 1 tablet by mouth once daily. 180 tablet 05/07/2024 11/03/2024 Active azithromycin 500 mg oral [...] test kit-small (BLOOD PRESSURE MONITOR SM CUFF) (7 sources) Start : 05-07 blood pressure test kit-small (BLOOD PRESSURE MONITOR SM CUFF) 1 Each once daily as needed. 1 Kit 05/07/2024 Active Start: 05-07-2024 blood pressure test kit-small (BLOOD PRESSURE MONITOR SM CUFF) 1 Each once daily as needed. 1 Kit 0 05/07/2024 Active calcitriol 0.46521 mg oral capsule (16 sources) Vitamin D3 Analog Start: 11-25-2020 calcitRIOL ( ROCALTROL) 0.25 MCG capsule Indications: CRI (chronic renal [...] Start: 03-03-2020 take 1 capsule by mo ut three [...] Active Start: 09-05-2019 take 1 capsule by ne ut three times weekly calcitRIOL (ROCALTROL) 0.25 [...] once daily for bladder irrigations. 30 each 11 05/01/2021 Active Start: 02-18-2021 Catheter Syrin ges 60 ML MISC Indications: Neurogenic bladder , Mitrofanoff appendicovesicostomy present (HCC) Use as directed once daily for bladder irrigations. 30 each 02/18/2021 Active Catheters MIS (16 sources) Start: 02-18-2021 Catheters [facility] Indications: Neurogenic bladder , Mitrofanoff appendicovesicostomy present (HCC) 14 Fr. Latex free, intermittent urinary catheters. Male length. Use as directed 4 times daily. With insertion supplies 120 each 02/18/2021 Active Start: 03-28-2020 Catheters [facility] Indications: Neurogenic bladder , Mitrofanoff appendicovesicostomy present ([facility]) 14 Fr. Latex free, intermittent urinary catheters. Male length. Use as directed 4 times daily. With insertion supplies 120 each 03/28/2020 Active Start: 08-30-2018 Catheters [facility] 12 Fr. Latex free, intermittent urinary catheters. [...] tablet 5 03/03/2020 08/30/2020 Active Folic Acid (13 sources) FOLIC ACID ORAL Indications: Supervision of high risk , antepartum Take by mouth. Active FOLIC ACID ORAL Indications: Supervision of high [...] imiquimod 50 mg/ml topical cream (1 source) Start : 01-15 imiquimod (ALDARA) 5 % cream Apply 1 packet topically 3 (three) times a week. Wash hands prior to and following application. 12 each 0 01/16/2024 Active 10 ml lidocaine hydrochloride 10 mg/ml injection (1 source) Antiarrhythmic, Amide Local Anesthetic Start : 09-14 End: 09-14 lidocaine PF 1 % injection 1 mL 1 ml medroxyPROGESTERone acetate 150 mg/ml injection (6 sources) Progestin medroxyPROGESTER one (DEPO-PROVERA) 150 MG/ML injection Inject 150 mg into the muscle every 3 months 0 Active meperidine hydrochloride 50 mg/ml injectable solution (1 source) Opioid Agonist Start : 09-14 meperidine (DEMEROL) injection 12.5 mg metroNIDAZOLE 0.0075 mg/mg vaginal gel (2 sources) Nitroimidazole Antimicrobial Start : 11-16 End: 11-21 metroNIDAZOLE (METROGEL) 0.75 % (37.5mg/5 gram) vaginal gel Indications: BV (bacterial vaginosis) Insert 1 applicator into the vagina nightly for 5 days. 45 g 0 11/16/2023 11/21/2023 Active 2 ml midazolam 1 mg/ml injection (1 source) Benzodiazepine Start : 09-14 midazolam PF (VERSED) injection 1 mg montelukast 10 mg oral tablet (10 sources) Leukotriene Receptor Antagonist take 1 tablet by mouth once daily montelukast (SINGULAIR) 10 MG tablet Take 10 mg by mouth nightly 0 Active nitrofurantoin, macrocrystals 25 mg / nitrofurantoin, monohydrate 75 mg oral capsule (8 sources) Nitrofuran Antibacterial Start : 05-07 End: 12-26 take 1 capsule by mouth once daily at bedtime nitrofurantoin monohydrate and macrocrystal (MACROBID) 100 mg capsule Take 1 capsule by mouth daily at bedtime. Take with food. 30 capsule 5 06/29/2024 12/26/2024 Active omeprazole 20 mg delayed release oral capsule (8 sources) Proton Pump Inhibitor Start : 07-22 omeprazole (PRILOSEC) 20 MG delayed release capsule End: 09-14-2021 take 1 capsule by mouth once daily omeprazole (PRILOSEC) 10 MG delayed release capsule Take 10 mg by mouth daily 0 09/14/2021 Discontinued (Stop Taking at Discharge) 2 ml ondansetron 2 mg/ml injection (2 sources) Serotonin-3 Receptor Antagonist Start: 09-14-2021 End: 09-14-2021 ondansetron (ZOFRAN) injection 4 mg Vitamin w/ Iron (WESTAB PLUS) 27 mg iron- 1 mg (3 sources) Start: 06-29-2024 End: 06-24-2025 take 1 tablet by mouth once daily in the morning Vitamin w/ Iron (WESTAB PLUS) 27 mg iron- 1 mg Take 1 tablet by mouth every morning. 30 tablet 11 06/29/2024 06/24/2025 Active Start: 04-24-2024 End: 06-29-2024 take 1 tablet by mouth once daily in the morning Vitamin w/ Iron (WESTAB PLUS) 27 mg iron- 1 mg Take 1 tablet by mouth every morning. 04/24/2024 06/29/2024 Discontinued Start: 04-24-2024 take 1 tablet by jw th once daily in the morning Vitamin w/ Iron (WESTAB PLUS) 27 mg iron- 1 mg Take 1 tablet by mouth every morning. 04/24/2024 Active sulfamethoxazole 800 mg / trimethoprim [...] Drug Class(es) Dates Sig (Normalized) Sig (Original) Jmbdhaoq-Mr-Lhi-Fe -FA tab (13 sources) Start: 04-24-2024 End: 06-29-2024 take 1 tablet by mouth once daily Brmmtnba-Wn-Cot-Fe- FA tab Indications: Supervision of high risk , antepartum Take 1 tablet by mouth once daily. 90 tablet 3 04/24/2024 06/29/2024 Discontinued Start: 04-24-2024 take 1 tablet by jw th once daily Kjtavdvr-Yg-Fks-Fe-FA tab Indications: Supervision of high risk , antepartum Take 1 tablet by mouth once daily. 90 tablet 3 04/24/2024 Active 50 ml sodium chloride 9 mg/m l injection (4 sources) Start: 06-06-2022 End: 06-06-2022 [...] Problem Date Documented Da te Episodic/Chronic Abdominal hernia (1 source) Umbilical hernia without obstruction or gangrene; Translations: [Umbilical hernia without obstruction or gangrene] Onset: 06-25-2024 Episodic Abdominal pain (12 sources) Finding of sensation of abdomen; Translations: [Unspecified abdominal pain] Onset: 01-03-2023 Episodic Anxiety disorders (9 sources) Generalized anxiety disorder; Translations: [Generalized anxiety disorder] Onset: 05-09-2024 05-09-2024 Chronic Aortic; peripheral; and visceral artery aneurysms (20 sources) Aortic root dilatation; Translations: [Thoracic aortic ectasia] Onset: 01-10-2024 Chronic Bacterial infection; unspecified site (1 source) Chlamydial infection; Translations: [Chlamydial infection, unspecified] 11-19-2023 Episodic Calculus of urinary tract (12 sources) Calculus in bladder; Translations: [Urinary bladder stone] Onset: 11-16-2022 03-15-2023 Episodic Cancer of cervix (16 sources) Cervical atypism; Translations: [Atypical squamous cells [...] 01-05-2023 Episodic Genitourinary symptoms and ill-defined conditions (20 sources) Urostomy present; Translations: [Appendico-vesicosto my status] Onset: 03-01-2023 Chronic Genitourinary symptoms and ill-defined conditions (2 sources) Blood in urine; Translations: [Retention of urine, unspecified] Onset: 10-04-2023 Episodic Headache; including migraine (1 source) Headache; including migraine; Translations: [HEADACHE UNSPECIFIED] Onset: 01-26-2023 Inflammatory diseases of female pelvic organs (1 source) Bacterial vaginosis; Translations: [Acute vaginitis] 11-16-2023 Episodic Menstrual disorders (3 sources) Irregular periods; Translations: [Irregular menstruation, unspecified] Onset: 11-07-2023 11-07-2023 Chronic Neoplasms of unspecified nature or uncertain behavior (19 sources) Neoplasm of sacrum; 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] Onset: 04-27-2024 04-27-2024 Episodic Other acquired deformities (10 sources) Scoliosis deformity of spine; Translations: [Scoliosis, [...] Onset: 07-07-2017 07-07-2017 Chronic Other complications of (19 sources) High risk ; Translations: [Supervision of high risk , unspecified, unspecified trimester] Onset: 04-27-2024 04-24-2024 Episodic Other complications of (1 source) Urinary tract infection in ; Translations: [Unspecified infection of urinary tract in , second trimester] 06-29-2024 Episodic Other complications of (1 source) Supervision [...] conditions (not mental disorders or infectious disease) (17 sources) Abnormal findings on diagnostic imaging of other abdominal regions, including retroperitoneum; Translations: [Encounter for screening for malignant neoplasm of vagina] Onset: 01-05-2023 05-07-2024 Episodic Residual codes; unclassified (19 sources) FH: Hypertension; Translations: [Personal history of [...] specified parts of digestive tract] 05-30-2024 Episodic Residual codes; unclassified (1 source) 19 weeks gestation of ; Translations: [19 weeks gestation of ] Onset: 06-18-2024 Episodic Residual codes; unclassified (2 sources) Gestation period, 20 weeks; Translations: [20 weeks gestation of ] 06-28-2024 Episodic Residual codes; unclassified (1 source) 16 weeks gestation of ; Translations: [16 weeks gestation of ] Onset: 06-28-2024 Episodic Spondylosis; intervertebral disc disorders; other back [...] (1 source) Annual Exam Onset: 11-15-2023 Unclassified (13 sources) [facility] Education - COMMON Onset: 04-24-2024 04-24-2024 Unclassified (13 sources) Education - [place] Onset: 04-24-2024 04-24-2024 Unclassified (1 source) Preconception Onset: 12-07-2023 Unclassified (1 source) NO SHOW 06-15-2024 Unclassified (1 source) Wound Check Onset: 10-04-2023 Urinary tract infections (13 sources) Acute cystitis; Translations: [Acute cystitis with [...] Translations: [Metabolic acidosis] Onset: 07-08-2017 07-08-2017 Episodic Hemorrhage during ; abruptio placenta; placenta previa (1 source) Hemorrhage in early , unspecified; Translations: [Hemorrhage in early , unspecified] Onset: 03-22-2024 Episodic Immunizations and screening for infectious disease (4 sources) Patient encounter status; Translations: [Encounter for screening for infections with a predominantly sexual mode of transmission] Onset: 11-15-2023 11-15-2023 Episodic Mood disorders (7 sources) Mood disorders Onset: 11-15-2023 11-15-2023 Other circulatory disease (10 sources) Disorder of aorta; Translations: [Other specified [...] Name Value Interpretation Reference Range Facil ity Examination level ultrasound on 06-28-2024 Indication Detailed anatomic survey; Maternal history of sacrococcygeal teratoma, Multiple bowel obstructions and kidney disease Impression 23 yo at at 20w3d presenting for detailed anatomy survey. Low risk cfDNA. 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 Low risk cfDNA and MSAFP. - Single, live, intrauterine . - biometry is consistent with the established gestational age. - No malformations were visualized on a complete detailed anatomic survey. - The amniotic fluid volume is normal amount. - The placenta is posterior, fundal. - The Transabdominal cervical length measures 33.2 mm with no evidence of funneling or other dynamic changes. - Not all structural malformations can be detected by ultrasound examination. Recommendations - Monthly growth US starting at 24 weeks - Weekly testing beginning at 32 weeks Maternal Assessment Height 157 cm Height (ft) 5 ft Height (in) 2 in Physical Exam Initial weight (lb) 95 lb Initial BMI 17.38 kg/m Method Transabdominal ultrasound examination. View: Adequate visualization Sood . Number of fetuses: 1 Dating LMP on: 02/06/2024 GA by LMP 20 w + 3 d MATT by LMP: 11/12/2024 Ultrasound examination on: 06/28/2024 GA by U/S based upon: AC, BPD, Femur, HC GA by U/S 20 w + 2 d MATT by U/S: 11/13/2024 Assigned: based on the LMP, selected on 05/07/2024 Assigned GA 20 w + 3 d Assigned MATT: 11/12/2024 General Evaluation Cardiac activity present. FHR 157 bpm. movements: present. Presentation: cephalic Placenta: Placental site: posterior, fundal Umbilical cord: Cord vessels: 3 vessel cord, normal insertion. Insertion site: normal insertion Amniotic fluid: Amount of AF: normal amount. MVP 6.0 cm Growth Overview Exam date GA BPD (mm) HC (mm) AC (mm) FL (mm) HL (mm) EFW (g) 05/30/2024 16w 2d 33.4 51% 120 27% 106.8 62% 19.7 35% 21 57% 146 32% 06/28/2024 20w 3d 48.1 55% 171.5 28% 155.3 53% 32 46% 31.5 54% 341 35% Biometry Standard BPD 48.1 mm 20w 4d 55% Hadlock OFD 59.2 mm 19w 2d 17% Nicolaides HC 171.5 mm 19w 5d 28% Pavel Cerebellum tr 21.1 mm 20w 0d 56% Hill Nuchal fold 4.6 mm AC 155.3 mm 20w 5d 53% Hadlock Femur 32.0 mm 20w 1d 46% Pavel Humerus 31.5 mm 20w 4d 54% Pavel EFW 341 g 20w 1d 35% Hadlock EFW (lb) 0 lb EFW (oz) 12 oz EFW by: Hadlock (HC-AC-FL) Extended Gunite Nozzle Operator 8.1 mm CM 3.9 mm 14% Nicolaides Head / Face / Neck Nasal bone: present Extremities / Bony Struc FL / HC 0.19 55% Hadlock Other Structures FHR 157 bpm Anatomy Cranium: normal Lateral ventricles: normal Choroid plexus: normal Midline falx: normal Cavum septi pellucidi: normal Cerebellum: normal Cisterna magna: normal Head / Neck Vermis: normal Neck: normal Nuchal fold: normal Lips: normal Profile: normal Nose: normal Face Nasal bone: present Maxilla: normal Mandible: normal Orbits: normal Lens: normal 4-chamber view: normal RVOT view: normal LVOT view: normal 3-vessel view: normal 1-asrokn-tcbdzvx view: normal Heart / Thorax Situs: situs solitus (normal) Aortic arch view: normal Ductal arch view: normal SVC: normal IVC: normal Cardiac position: levocardia (normal) Cardiac axis: normal Cardiac rhythm: regular (normal) Rt lung: normal Lt lung: normal Diaphragm: normal Cord insertion: normal Stomach: normal Kidneys: normal Bladder: normal Genitals: normal Abdomen Abdom. wall: normal Cervical spine: normal Thoracic spine: normal Lumbar spine: normal Sacral spine: normal Arms: normal Legs: normal Rt upper arm: normal Rt forearm: normal Rt hand: normal Rt fingers: normal Lt upper arm: normal Lt forearm: normal Lt hand: normal Lt fingers: normal Rt upper leg: normal Rt lower leg: normal Rt foot: normal Lt upper leg: normal Lt lower leg: normal Lt foot: normal sex: female Wants to know sex: yes Maternal Structures Uterus / Cervix Uterus: Visualized Cervix: Visualized Approach: Transabdominal Cervical length 33.2 mm Other: Patient declined transvaginal ultrasound for cervical length. Ovaries / Tubes / Adnexa Rt ovary: Not visualized Lt ovary: Not visualized Performed By: Blanca Hancock RDMS Read By: Dunia Angeles MD. MATERNAL MEDICINE [facility] Radiology Study observation (narrative) [facility] URN MACROSCOPIC NURon 2023 BILIRUBIN HANANE Negative Normal NEG [facility] Comment on above: Performed By: #### C GT #### [facility] ([id number]) [address] [place] [address] [facility] ([id number]) [address] [place] [address] BLOOD/HGB HANANE Large Abnormal NEG [facility] Comment on above: Performed By: #### C GT #### [facility] ([id number]) [address] [place] [address] [facility] ([id number]) [address] [place] [address] GLUCOSE HANANE Negative Normal NEG [facility] Comment on above: Performed By: #### C GT #### [facility] ([id number]) [address] [place] [address] [facility] ([id number]) [address], [address] [place] [address] KETONES HANANE Negative Normal NEG [facility] Comment on above: Performed By: #### C GT #### [facility] ([id number]) [address] [place] [address] [facility] ([id number]) [address], [address] [place] [address] LEUKOCYTE ESTERASE HANANE Small Abnormal NEG [facility] Comment on above: Performed By: #### C GT #### [facility] ([id number]) [address] [place] [address] [facility] ([id number]) [address], [address] [place] [address] NITRITE HANANE Negative Normal NEG [facility] Comment on above: Performed By: #### C GT #### [facility] ([id number]) [address] [place] [address] [facility] ([id number]) [address], [address] [place] [address] PH HANANE 6.5 Normal 5.0-8.5 [facility] Comment on above: Performed By: #### C GT #### [facility] ([id number]) [address] [place] [address] [facility] ([id number]) [address], [address] [place] [address] PROTEIN HANANE Trace Abnormal NEG [facility] Comment on above: Performed By: #### C GT #### [facility] ([id number]) [address] [place] [address] [facility] ([id number]) [address], [address] [place] [address] SPECIFIC GRAVITY HANANE 1.020 Normal 1.003-1.035 [facility] Comment on above: Performed By: #### C GT #### [facility] ([id number]) [address] [place] [address] [facility] ([id number]) [address] [place] [address] UROBILINOGEN HANANE 0.2 eu/dL Normal <1.1 [facility] Comment on above: Performed By: #### C GT #### [facility] ([id number]) [address] [place] [address] [facility] ([id number]) [address] [place] [address] CBC AND AUTO DIFFon 06-18-20 24 ABSOLUTE BASOPHIL 0.1 X10E9/L Normal 0.0-0.2 [facility] Comment on above: Performed By: #### 6 30-4 #### [facility] ([id number]) [address] [place] [address] ABSOLUTE NEUTROPHIL 6.6 X10E9/L Normal 1.5-6.6 [facility] Comment on above: Performed By: #### 6 30-4 #### [facility] ([id number]) [address], [address] [place] [address] Basophils/100 WBC (Bld) 0.7 % Normal [facility] Comment on above: Performed By: #### 6 30-4 #### [facility] ([id number]) [address], [address] [place] [address] Eosinophils (Bld) [#/Vol] 0.1 10*3/uL Normal 0.0-0.4 [facility] Comment on above: Performed By: #### 6 30-4 #### [facility] ([id number]) [address] [place] [address] Eosinophils/100 WBC (Bld) 1.4 % Normal [facility] Comment on above: Performed By: #### 6 30-4 #### [facility] ([id number]) [address] [place] [address] Erythrocyte distribution width (RBC) [Ratio] 12.8 % Normal 11.5-15.0 [facility] Comment on above: Performed By: #### 6 30-4 #### [facility] ([id number]) [address] [address] [place] [address] Hematocrit (Bld) [Volume fraction] 35.1 % Normal 35-47 [facility] Comment on above: Performed By: #### 6 30-4 #### [facility] ([id number]) [address] [address] [place] [address] Hemoglobin (Bld) [Mass/Vol] 12.1 g/dL Normal 11.7-15.5 [facility] Comment on above: Performed By: #### 6 30-4 #### [facility] ([id number]) [address] [address] [place] [address] Lymphocytes (Bld) [#/Vol] 1.4 10*3/uL Normal 1.0-3.5 [facility] Comment on above: Performed By: #### 6 30-4 #### [facility] ([id number]) [address] [address] [place] [address] Lymphocytes/100 WBC (Bld) 16.2 % Normal [facility] Comment on above: Performed By: #### 6 30-4 #### [facility] [facility] ([id number]) [address] [facility] [address] [place] [address] MCH (RBC) [Entitic mass] 31.4 pg Normal 27-34 [facility] Comment on above: Performed By: #### 6 30-4 #### [facility] ([id number]) [address] [place] [address] MCHC (RBC) [Mass/Vol] 34.5 g/dL Normal 32-36 [facility] Comment on above: Performed By: #### 6 30-4 #### [facility] ([id number]) [address] [place] [address] MCV (RBC) [Entitic vol] 91 fL Normal 80-100 [facility] Comment on above: Performed By: #### 6 30-4 #### [facility] ([id number]) [address], [address] [place] [address] Monocytes (Bld) [#/Vol] 0.4 10*3/uL Normal 0-0.9 [facility] Comment on above: Performed By: #### 6 30-4 #### [facility] ([id number]) [address], [address] [place] [address] Monocytes/100 WBC (Bld) 5.0 % Normal [facility] Comment on above: Performed By: #### 6 30-4 #### [facility] ([id number]) [address], [address] [place] [address] Neutrophils/100 WBC (Bld) 76.7 % Normal [facility] Comment on above: Performed By: #### 6 30-4 #### [facility] ([id number]) [address] [place] [address] Platelet mean volume (Bld) [Entitic vol] 8.2 fL Normal 7-12 [facility] Comment on above: Performed By: #### 6 30-4 #### [facility] ([id number]) [address] [place] [address] Platelets (Bld) [#/Vol] 264 10*3/uL Normal 150-450 [facility] Comment on above: Performed By: #### 6 30-4 #### [facility] ([id number]) [address], [address] [place] [address] RBC COUNT 3.86 X10E12/L Normal 3.80-5.20 [facility] Comment on above: Performed By: #### 6 30-4 #### [facility] ([id number]) [address] [place] [address] WBC (Bld) [#/Vol] 8.6 10*3/uL Normal 4.0-11.0 [facility] Comment on above: Performed By: #### 6 30-4 #### [facility] ([id number]) [address] [place] [address] COMPREHENSIVE METABOLIC PANE Chris 06-18-2024 Albumin [Mass/Vol] 3.8 g/dL Normal 3.2-5.3 [facility] Comment on above: Performed By: #### C GT #### [facility] ([id number]) [address] [place] [address] [facility] ([id number]) [address] [place] [address] ALP [Catalytic activity/Vol] 69 U/L Normal 39-130 [facility] Comment on above: Performed By: #### C GT #### [facility] ([id number]) [address] [place] [address] [facility] ([id number]) [address] [place] [address] ALT [Catalytic activity/Vol] 21 U/L Normal 0-31 [facility] Comment on above: Result Comment: SPEC IMEN HEMOLYZED, RESULTS INCREASED Performed By: #### C GT #### [facility] ([id number]) [address] [place] [address] [facility] ([id number]) [address] [place] [address] Anion gap [Moles/Vol] 6 mmol/L Normal 5-15 [facility] Comment on above: Performed By: #### C GT #### [facility] ([id number]) [address] [place] [address] [facility] ([id number]) [address] [place] [address] AST [Catalytic activity/Vol] 36 U/L Normal 0-41 [facility] Comment on above: Result Comment: SPEC IMEN HEMOLYZED, RESULTS INCREASED Performed By: #### C GT #### [facility] ([id number]) [address] [place] [address] [facility] ([id number]) [address] [place] [address] Bilirubin [Mass/Vol] 0.4 mg/dL Normal 0.3-1.2 [facility] Comment on above: Result Comment: RESU LTS QUESTIONABLE DUE TO HEMOLYSIS Performed By: #### C GT #### [facility] ([id number]) [address] [place] [address] [facility] ([id number]) [address] [place] [address] Calcium [Mass/Vol] 8.8 mg/dL Normal 8.5-10.5 [facility] Comment on above: Performed By: #### C GT #### [facility] ([id number]) [address] [place] [address] [facility] ([id number]) [address] [place] [address] Chloride [Moles/Vol] 105 mmol/L Normal 98-109 [facility] Comment on above: Performed By: #### C GT #### [facility] ([id number]) [address] [place] [address] [facility] ([id number]) [address] [place] [address] CO2 [Moles/Vol] 23 mmol/L Normal 22-32 [facility] Comment on above: Performed By: #### C GT #### [facility] ([id number]) [address] [place] [address] [facility] ([id number]) [address] [place] [address] Creatinine [Mass/Vol] 1.00 mg/dL Normal 0.40-1.00 [facility] Comment on above: Result Comment: METH OD TRACEABLE TO IDMS STANDARD Performed By: #### C GT #### [facility] ([id number]) [address] [place] [address] [facility] ([id number]) [address] [place] [address] GFR/1.73 sq M.predicted among non-blacks MDRD (S/P/Bld) [Vol rate/Area] 82 mL/min/{1.73_m2} Normal >59 [facility] Comment on above: Result Comment: Reported eGFR is based on the CKD-EPI 2020 equation that does not use a race coefficient. Performed By: #### C GT #### [facility] ([id number]) [address] [place] [address] [facility] ([id number]) [address] [place] [address] Glucose [Mass/Vol] 106 mg/dL High 65-99 [facility] Comment on above: Performed By: #### C GT #### [facility] ([id number]) [address] [place] [address] [facility] ([id number]) [address] [address] [place] [address] Potassium [Moles/Vol] 4.5 mmol/L Normal 3.5-5.0 [facility] Comment on above: Result Comment: SPEC IMEN HEMOLYZED, RESULTS INCREASED Performed By: #### C GT #### [facility] ([id number]) [address] [place] [address] [facility] ([id number]) [address] [place] [address] Protein [Mass/Vol] 6.9 g/dL Normal 6.0-8.0 [facility] Comment on above: Performed By: #### C GT #### [facility] ([id number]) [address] [place] [address] [facility] ([id number]) [address] [place] [address] Sodium [Moles/Vol] 134 mmol/L Normal 134-146 [facility] Comment on above: Performed By: #### C GT #### [facility] ([id number]) [address] [place] [address] [facility] ([id number]) [address] [place] [address] Urea nitrogen [Mass/Vol] 13 mg/dL Normal 5-23 [facility] Comment on above: Performed By: #### C GT #### [facility] ([id number]) [address] [place] [address] [facility] ([id number]) [address] [place] [address] LIPASEon 06-18-2024 Lipase [Catalytic activity/Vol] 34 U/L Normal 17-40 [facility] Comment on above: Performed By: #### C GT #### [facility] ([id number]) [address] [place] [address] [facility] ([id number]) [address] [place] [address] URINE CULTUREon 06-18-2024 Bacteria identified Cx Nom (U) CULTURE RESULTS 10,000 to 50,000 ORGANISMS/mL ENTEROCOCCUS SPECIES Ampicillin or Amoxicillin is the drug of choice for uncomplicated cystitis caused by enterococci. Cephalosporins are inappropriate. [ S = SUSCEPTIBLE R = RESISTANT I = INTERMEDIATE S-DO = Susceptible-dose dependent NS = Non-suscceptible NO = No Interpretation ] Organism: ENTEROCOCCUS SPECIES Antibiotic Interpretation LETITIA Status AMPICILLIN S <=2 F LEVOFLOXACIN S 0.5 F NITROFURANTOIN S <=16 F VANCOMYCIN S 1 F Susceptible [facility] Comment on above: Performed By: #### C GT #### [facility] ([id number]) [address] [place] [address], [place] [address] [facility] ([id number]) [address] [place] [address] URN MACROSCOPIC NURon 2023 BILIRUBIN HANANE Negative Normal NEG [facility] Comment on above: Performed By: #### 6 30-4 #### [facility] ([id number]) [address] [place] [address] BLOOD/HGB HANANE Negative Normal NEG [facility] Comment on above: Performed By: #### 6 30-4 #### [facility] ([id number]) [address] [place] [address] GLUCOSE HANANE Negative Normal NEG [facility] Comment on above: Performed By: #### 6 30-4 #### [facility] ([id number]) [address] [place] [address] KETONES HANANE Negative Normal NEG [facility] Comment on above: Performed By: #### 6 30-4 #### [facility] ([id number]) [address] [place] [address] LEUKOCYTE ESTERASE HANANE Trace Abnormal NEG [facility] Comment on above: Performed By: #### 6 30-4 #### [facility] ([id number]) [address] [place] [address] NITRITE HANANE Negative Normal NEG [facility] Comment on above: Performed By: #### 6 30-4 #### [facility] ([id number]) [address] [place] [address] PH HANANE 6.5 Normal 5.0-8.5 [facility] Comment on above: Performed By: #### 6 30-4 #### [facility] ([id number]) [address] [place] [address] PROTEIN HANANE Negative Normal NEG [facility] Comment on above: Performed By: #### 6 30-4 #### [facility] ([id number]) [address] [place] [address] SPECIFIC GRAVITY HANANE 1.015 Normal 1.003-1.035 [facility] Comment on above: Performed By: #### 6 30-4 #### [facility] ([id number]) [address] [place] [address] UROBILINOGEN HANANE 1.0 eu/dL Normal <1.1 [facility] Comment on above: Performed By: #### 6 30-4 #### [facility] ([id number]) [address] [place] [address] ALPHA FETOPRO MATERNALon AFP, MATERNAL 0.72 MoM Normal [facility] Comment on above: Order Comment: Speci men Type: BLOOD SPECIMENOrdering Facility: [facility] Address: [address] [place] [address] Result Comment: 47.5 0 ng/mL Performed By: #### A FPMAT ####[facility] [id number] [place] [address] [place] DATE OF COLLECTION #1 06/16/24 Normal [facility] Comment on above: Order Comment: Speci men Type: BLOOD SPECIMENOrdering Facility: [facility] Address: [facility] [place] [address] Performed By: #### A FPMAT ####[facility] [id number] [place] [id number] [place] DATE RECEIVED 06/19/24 Normal [facility] Comment on above: Order Comment: Speci men Type: BLOOD SPECIMENOrdering Facility: [facility] Address: [address] [place] [address] Performed By: #### A FPMAT ####[facility] [id number] [place] [address] [place] MATT 11/12/24 Normal [facility] Comment on above: Order Comment: Speci men Type: BLOOD SPECIMENOrdering Facility: [facility] Address: [address] [place] [address] Performed By: #### A FPMAT ####[facility] [id number] [place] [address] [place] GESTATION AT DATE OF SAMPLE 18 weeks 5 days (by dates) Normal [facility] Comment on above: Order Comment: Speci men Type: BLOOD SPECIMENOrdering Facility: [facility] Address: [address] [place] [address] Performed By: #### A FPMAT ####[facility] [id number] [place] [address] [place] INSULIN DEPENDENT DIABETES None Normal [facility] Comment on above: Order Comment: Speci men Type: BLOOD SPECIMENOrdering Facility: [facility] Address: [address] [place] [address] Performed By: #### A FPMAT ####[facility] [id number] [place] [address] [place] IVF No Normal [facility] Comment on above: Order Comment: Speci men Type: BLOOD SPECIMENOrdering Facility: [facility] Address: [address] [place] [address] Performed By: #### A FPMAT ####[facility] [id number] [address] OF [place] LMP 02/06/24 Normal [facility] Comment on above: Order Comment: Speci men Type: BLOOD SPECIMENOrdering Facility: [facility] Address: [address] [place] [address] Performed By: #### A FPMAT ####[facility] [id number] [address] [place] MATERNAL AFP COMMENT See comments below Normal [facility] Comment on above: Order Comment: Rosmeryi men Type: BLOOD SPECIMENOrdering Facility: [facility] Address: [address] [place] [address] Result Comment: INTE RPRETATION Screening result : Screen negative Risk of NTD : 1 in 7,600 Comment : The interpretation is for NTD only A screen negative result does not exclude the possibility of a neural tube defect, because screening does not detect all affected pregnancies Performed By: #### A FPMAT ####[facility] [id number] [address] OF [place] MATERNAL AGE AT MATT 24 years Normal [facility] Comment on above: Order Comment: Speci men Type: BLOOD SPECIMENOrdering Facility: [facility] Address: [address] [place] [address] Performed By: #### A FPMAT ####[facility] [id number] [place] [id number] [place] PATIENT'S WEIGHT DAY OF COLLECTION 104 lb. Normal [facility] Comment on above: Order Comment: Speci men Type: BLOOD SPECIMENOrdering Facility: [facility] Address: [address] [place], [place] [id number] Performed By: #### A FPMAT ####[facility] [id number] [place] [address] [place] INTERP-MATERNAL AFP Negative Normal Screen Negative [facility] Comment on above: Order Comment: Speci men Type: BLOOD SPECIMENOrdering Facility: [facility] Address: [address] [place] [address] Performed By: #### A FPMAT ####[facility] [id number] [place] [address] [place] PREVIOUS NTD None Normal [facility] Comment on above: Order Comment: Speci men Type: BLOOD SPECIMENOrdering Facility: [facility] Address: [address] [place], [place] [id number] Performed By: #### A FPMAT ####[facility] [id number] [place] [address] [place] RISK OF NTD ;1:7600 Normal [facility] Comment on above: Order Comment: Speci men Type: BLOOD SPECIMENOrdering Facility: [facility] Address: [address] [place] [address] Performed By: #### A FPMAT ####[facility] [id number] [place] [address] [place] SAMPLE #1 [id number] Normal [facility] Comment on above: Order Comment: Speci men Type: BLOOD SPECIMENOrdering Facility: [facility] Address: [address] [place], [place] [id number] Performed By: #### A FPMAT ####[facility] [id number] [address] STAFF REVIEW (MATERNAL SCREENS) Reviewed by Danilo Chong MD, Ph.D ([id number]) Normal [facility] Comment on above: Order Comment: Speci men Type: BLOOD SPECIMENOrdering Facility: [facility] Address: [address] [place] [address] Performed By: #### A FPMAT ####[facility] [id number] [address] [place] CREATININE, 24 HOUR URINEon 05-30-2024 Creatinine (24H U) [Mass/Time] 1.179 g/24 hr Normal 0.800-1.800 [facility] Comment on above: Order Comment: Speci men Type: URINE SPECIMENOrdering Facility: [facility] Address: [address] [place] [address] Performed By: #### U CRD ####[facility] [id number] [address] STATES [facility] Examination level ultrasound on 05-30-2024 Indication Early [...] normal LVOT view: normal 3-vessel view: suboptimal 9-yngazb-favhqvp view: normal Heart / Thorax Aortic arch [...] By: Jose Maria Amador M.D. MATERNAL MEDICINE [facility] Radiology Study observation (narrative) [facility] Prot 24h Ur-mRateon 05-30-20 24 PERIOD (HRS) 24 hr Normal [facility] Comment on above: Order Comment: Speci men Type: URINE SPECIMENOrdering Facility: [facility] Address: [address] [place] [address] Performed By: #### 2 889-4 ####[facility] [id number] [place] [address] [place] Performed By: #### U CRD ####[facility] [id number] [place] [address] [place] Protein (24H U) [Mass/Time] 0.35 g/24 Hr High <0.15 [facility] Comment on above: Order Comment: Speci men Type: URINE SPECIMENOrdering Facility: [facility] Address: [address] [place] [address] Result Comment: Adul t Proteinuria Categories: <0.15 g/24 hours is considered normal to mildly increased 0.15 - 0.50 g/24 hours is considered moderately increased >0.50 g/24 hours is considered severely increased KDIGO. (2013). KDIGO 2012 Clinical Practice Guideline for the Evaluation and Management of Chronic Kidney Disease. Official Journal of the International Society of Nephrology, 3(1), 1-150. Performed By: #### 2 889-4 ####[facility] [id number] [place] [address] [place] Specimen volume (24H U) 1.5 L Normal [facility] Comment on above: Order Comment: Speci men Type: URINE SPECIMENOrdering Facility: [facility] Address: [address] [place] [address] Performed By: #### 2 889-4 ####[facility] [id number] [place] [address] [place] Performed By: #### U CRD ####[facility] [id number] [place] [address] [place] URINE OB DIP B/Oon Glucose Ql (U) Negative Neg mg/dL [facility] Interpretation and review of laboratory results Normal [facility] Protein.monoclonal (U) [Mass/Vol] Negative Neg mg/dL [facility] CNPNon 05-28-2024 CNPN Telephone (OBGFVC) AGUSTINA PIMENTEL ([id number]) 4 F [facility] Date Time Provider Department 05/28/24 JUDITH CAMPOS [...] calling: self Call patient at: on cell [phone] (home) [phone] (cell) Was an appointment scheduled: No Closing statement: Symptom Call: Thank you for calling [facility], your call is very important. A [...] FOLIC ACID ORAL Take by mouth. - Fcrnmhqd-Mt-Zlh-Fe-FA tab Take 1 tablet by mouth once [...] Status:Closed by REBEKAH MARCOS on 05/30/24 Normal [facility] Bacteria Ur Culton 07-22-202 4 Bacteria identified Cx Nom (U) ORGANISM ID: 1 <1,000 CFU/ml Normal urogenital daniel Normal [facility] Comment on above: Performed By: #### 6 30-4 ####[facility] [id number] [place] [address] [place] nuchal translucency me asured by USon 05-07-2024 Indication First trimester anatomic survey Impression [...] stones. - Single, live, intrauterine . - [place] rump length measurement is consistent with the [...] view: normal 4-chamber view with color: normal 5-ozdmuq-tabzrht view: normal Abdominal cord insertion: normal Stomach: [...] Read By: Dunia Angeles MD. MATERNAL MEDICINE [facility] Radiology Study observation (narrative) [facility] Donovan 04-30-2024 CNPN Telephone (OGFVWE) AGUSTINA PIMENTEL ([id number]) 4 F DEF Date Time Provider Department 04/30/24 CONSERVATION ENGINEER OGFVWE During your visit today, we recorded the following information about you: Rduolph Lorenzo RN 04/30/2024 12:10 PM Signed 1st risk assessment form submitted 04/30/24 Rudolph Lorenzo RN Allergies As of Date: 04/30/2024 (No Known Allergies) Date Reviewed: 04/18/2024 Reviewed by: Marvin Choi APRN.CHASSIS ENGINEER - Fully Assessed Reason for Visit: PRAF [[id number]] Prescriptions as of 04/30/2024 - FOLIC ACID ORAL Take by mouth. - Tdlitioc-Cb-Mbb-Fe-FA tab Take 1 tablet by mouth once [...] Status:Closed by RUDOLPH LORENZO on 04/30/24 [facility] AGUSTINA PIMENTEL ([id number]) 4 F DEF Date Time Provider Department 04/30/24 NAHOMY CARCAMO During your visit today, we recorded the following information about you: Nahomy Carcamo PA-C 04/30/2024 9:57 AM Signed Patient's NIPT screening test came back normal! The gender will be listed. If still planning on surprise gender/gender reveal, please do not open the results listed as [id number] PLUS. SHANDRA Robertson Cassandra, RN 04/30/2024 10:59 AM Signed Called pt and ID by name and . Informed pt of normal/low risk NIPT results, pt would like results released to [facility] to view gender at home. Released results to pt chart. Karley Elam RN Allergies As of Date: 04/30/2024 (No Known Allergies) Date Reviewed: 04/18/2024 Reviewed by: Marvin Choi APRN.CHASSIS ENGINEER - Fully Assessed Prescriptions as of 04/30/2024 - FOLIC ACID ORAL Take by mouth. - Lquqdmca-Ey-Qhd-Fe-FA tab Take 1 tablet by mouth once [...] Encounter Status:Closed by NAHOMY CARCAMO on 04/30/24 Normal [facility] AGUSTINA PIMENTEL ([id number]) 4 F DEF Date Time Provider Department 04/27/24 HISTORICAL OBMFMN During your visit today, we recorded the following information about you: Zuleyma Gomez 04/27/2024 2:32 PM Signed Referral to [facility] received. Cardiac OB has already reached out to patient to discuss scheduling. Allergies As of Date: 04/27/2024 (No Known Allergies) Date Reviewed: 04/18/2024 Reviewed by: Marvin Choi APRN.CHASSIS ENGINEER - Fully Assessed Prescriptions as of 04/27/2024 - FOLIC ACID ORAL Take by mouth. - Vghglnvy-Si-Tat-Fe-FA tab Take 1 tablet by mouth once [...] Encounter Status:Closed by ZULEYMA GOMEZ on 04/27/24 [facility] Donovan 04-26-20[facility] AGUSTINA PIMENTEL ([id number]) 4 F DEF Date Time Provider Department 04/26/24 [facility] AGRAWAL [facility] During your visit today, we recorded the following information about you: Lesa Agrawal RN 04/27/2024 2:02 PM Signed Call to patient to schedule COB visit. Patient requests call back Tuesday as she is driving and unavailable to talk. Will call back. AGNIE Aguilar Samantha, RN 04/30/2024 11:37 AM Signed Call to patient to schedule Cardio OB visit. No answer. Glisten message sent ANGIE Aguilar Samantha, RN 04/30/2024 11:46 AM Signed Referring Physician: [place] OB: SHANDRA Carcamo Housekeeping Manager: MD Hamida Agustina Pimentel is a 23 year old with an [...] Genetic testing performed None Desired delivery location: [place] ANGIE Aguilar Samantha, RN 04/30/2024 11:46 AM Signed Addended by: LESA AGRAWAL on: 04/30/2024 11:46 AM Modules accepted: Orders Allergies As of Date: 04/26/2024 (No Known Allergies) Date Reviewed: 04/18/2024 Reviewed by: Marvin Choi APRN.CHASSIS ENGINEER - Fully Assessed Primary Visit Diagnosis:Aortic root dilation (HCC) [I77.810] Order(s):CONSULT TO [facility] [[id number]] Order #: [id number]: 1 ECHO SPECIALIST COMPLEX ADULT CONGENITAL [[id number]] Order #: [id number]: 1 FUTURE Prescriptions as of 04/30/2024 - FOLIC ACID ORAL Take by mouth. - Auriampu-Df-Uhr-Fe-FA tab Take 1 tablet by mouth once daily. Problem List As Of Date: 04/26/2024 (None) Encounter Status:Closed by LESA AGRAWAL on 04/27/24 Normal [facility] C. trachomatis+N. gonorrhoea e DNA DADA+probe Ql (Unsp spec)on 04-25-2024 C. trachomatis rRNA DADA+probe Ql (Unsp spec) Negative Negative for Chlamydia trachomatis by amplificaton [facility] Interpretation and review of laboratory results Normal [facility] N. gonorrhoeae rRNA DADA+probe Ql (Unsp spec) Negative Negative for Neisseria gonorrhoeae by amplification [facility] For screening asymptomatic women, a vaginal swab specimen(APTIMA vaginal swab [id number]) is optimal. Urine specimens have reduced sensitivity for Chlamydia trachomatis or Neisseria gonorrhoeae infection in female patients without symptoms. [facility] C. trachomatis+N. gonorrhoea e DNA DADA+probe Ql (Unsp spec)on 04-24-2024 C. trachomatis rRNA DADA+probe Ql (Unsp spec) Negative Normal Negative for Chlamydia trachomatis by amplificaton [facility] Comment on above: Order Comment: Speci men Type: URINE SPECIMENOrdering Facility: [facility] Address: [address] [place] [address] Performed By: #### 3 6902-5 ####[facility] LABCLIA [id number] [place] [address] [place] N. gonorrhoeae rRNA DADA+probe Ql (Unsp spec) Negative Normal Negative for Neisseria gonorrhoeae by amplification [facility] Comment on above: Order Comment: Speci men Type: URINE SPECIMENOrdering Facility: [facility] Address: [address] [place] [address] Performed By: #### 3 6902-5 ####[facility] LABCLIA [id number] [place] [address] [place] CBC panel Auto (Bld)on 04-24 Erythrocyte distribution width (RBC) [Ratio] 12.2 % 11.5 - 15.0 % [facility] Hematocrit (Bld) [Volume fraction] 39.7 % 36.0 - 46.0 % [facility] Hemoglobin (Bld) [Mass/Vol] 12.8 g/dL 11.5 - 15.5 g/dL [facility] Interpretation and review of laboratory results Normal [facility] MCH (RBC) [Entitic mass] 30.4 pg 26.0 - 34.0 pg [facility] MCHC (RBC) [Mass/Vol] 32.2 g/dL 30.5 - 36.0 g/dL [facility] MCV (RBC) [Entitic vol] 94.3 fL 80.0 - 100.0 fL [facility] Nucleated RBC (Bld) [#/Vol] NINF [facility] Platelet mean volume (Bld) [Entitic vol] 10.6 fL 9.0 - 12.7 fL [facility] Platelets (Bld) [#/Vol] 231 10*3/uL [facility] RBC (Bld) [#/Vol] 4.21 10*6/uL 3.90 - 5.2 0 m/uL [facility] WBC (Bld) [#/Vol] 8.92 10*3/uL [facility] Erythrocyte distribution width (RBC) [Ratio] 12.2 % Normal 11.5-15.0 [facility] Comment on above: Order Comment: Speci men Type: BLOOD SPECIMENOrdering Facility: [facility] Address: [address] [place] [address] Performed By: #### 5 8410-2 ####[facility] LABCLIA [id number] [place] [address] [place] Hematocrit (Bld) [Volume fraction] 39.7 % Normal 36.0-46.0 [facility] Comment on above: Order Comment: Speci men Type: BLOOD SPECIMENOrdering Facility: [facility] Address: [address] [place] [address] Performed By: #### 5 8410-2 ####[facility] LABCLIA [id number] [place] [address] [place] Hemoglobin (Bld) [Mass/Vol] 12.8 g/dL Normal 11.5-15.5 [facility] Comment on above: Order Comment: Speci men Type: BLOOD SPECIMENOrdering Facility: [facility] Address: [address] [place] [address] Performed By: #### 5 8410-2 ####[facility] LABCLIA [id number] [place] [address] [place] MCH (RBC) [Entitic mass] 30.4 pg Normal 26.0-34.0 [facility] Comment on above: Order Comment: Speci men Type: BLOOD SPECIMENOrdering Facility: [facility] Address: [address] [place] [address] Performed By: #### 5 8410-2 ####[facility] LABCLIA [id number] [place] [address] [place] MCHC (RBC) [Mass/Vol] 32.2 g/dL Normal 30.5-36.0 [facility] Comment on above: Order Comment: Speci men Type: BLOOD SPECIMENOrdering Facility: [facility] Address: [address] [place] [address] Performed By: #### 5 8410-2 ####[facility] LABIA [id number] [place] [address] [place] MCV (RBC) [Entitic vol] 94.3 fL Normal 80.0-100.0 [facility] Comment on above: Order Comment: Speci men Type: BLOOD SPECIMENOrdering Facility: [facility] Address: [address] [place] [address] Performed By: #### 5 8410-2 ####[facility] LABIA [id number] [place] [address] [place] Nucleated RBC (Bld) [#/Vol] 10*3/uL Normal <0.01 [facility] Comment on above: Order Comment: Speci men Type: BLOOD SPECIMENOrdering Facility: [facility] Address: [address] [place] [address] Performed By: #### 5 8410-2 ####[facility] LABIA [id number] [place] [address] [place] Platelet mean volume (Bld) [Entitic vol] 10.6 fL Normal 9.0-12.7 [facility] Comment on above: Order Comment: Speci men Type: BLOOD SPECIMENOrdering Facility: [facility] Address: [address] [place] [address] Performed By: #### 5 8410-2 ####[facility] LABIA [id number] [place] [address] [place] Platelets (Bld) [#/Vol] 231 10*3/uL Normal 150-400 [facility] Comment on above: Order Comment: Speci men Type: BLOOD SPECIMENOrdering Facility: [facility] Address: [address] [place] [address] Performed By: #### 5 8410-2 ####[facility] LABCLIA [id number] [place] [address] [place] RBC (Bld) [#/Vol] 4.21 10*6/uL Normal 3.90-5.20 [facility] Comment on above: Order Comment: Speci men Type: BLOOD SPECIMENOrdering Facility: [facility] Address: [address] [place] [address] Performed By: #### 5 8410-2 ####[facility] LABIA [id number] [place] [address] [place] WBC (Bld) [#/Vol] 8.92 10*3/uL Normal 3.70-11.00 [facility] Comment on above: Order Comment: Speci men Type: BLOOD SPECIMENOrdering Facility: [facility] Address: [address] [place] [address] Performed By: #### 5 8410-2 ####[facility] LABIA [id number] [place] [address] [place] HBV surface Ag Ql (S)on Interpretation and review of laboratory results Normal [facility] HBV surface Ag Ser Qlon HBV surface Ag Ql (S) Negative Normal Negative [facility] Comment on above: Order Comment: Speci men Type: BLOOD SPECIMENOrdering Facility: [facility] Address: [address] [place] [address] Performed By: #### 7 3752-8, 39362-5, 5195-3 ####[facility] LABIA [id number] [place] [address] [place] HCV Ab Ql (S)on 04-24-2024 Interpretation and review of laboratory results Normal [facility] HCV Ab Ser Qlon 04-24-2024 HCV Ab Ql (S) Negative Normal Negative [facility] Comment on above: Order Comment: Speci men Type: BLOOD SPECIMENOrdering Facility: [facility] Address: [address] [place] [address] Result Comment: The result suggests no evidence of active infection with Hepatitis C virus. Should recent infection be suspected, repeat testing may be considered 4-6 weeks after this draw. Performed By: #### 1 6128-1 ####[facility] LABCLIA [id number] [facility] [id number] [place] [address] [place] HEPATITIS B SURFACE ANTIGENo n 04-24-2024 HBV surface Ag Ql (S) Negative Negative [facility] HEPATITIS C ANTIBODY IA WITH CONFIRMATIONon 04-24-2024 HCV Ab Ql (S) Negative Negative [facility] Comment on above: The result suggests no evidence of active infection with Hepatitis C virus. Should recent infection be suspected, repeat testing may be considered 4-6 weeks after this draw. HIV 1+2 Ab IA Qlon HIV 1 and 2 Ab IA.rapid Nom (S/P/Bld) [facility] Comment on above: Test not indicated. HIV 1+2 Ab+HIV1 p24 Ag IA Ql Non-Reactive Nonreactive [facility] HIV immunoassay testing algorithm interpretation (S/P/Bld) [Interp] [facility] Comment on above: No evidence of HIV-1 or HIV-2 infection. Should recent infection be suspected, repeat testing may be considered 2-3 weeks after this draw. [place] Rev. Code 3701.243(E): This information has been [...] release of HIV test results or diagnoses. [facility] HIV 1 and 2 Ab IA.rapid Nom (S/P/Bld) Normal [facility] Comment on above: Order Comment: Speci men Type: BLOOD SPECIMENOrdering Facility: [facility] Address: [address] [place] [address] Result Comment: Test not indicated. Performed By: #### 7 3752-8, 61130-9, 5195-3 ####[facility] LABCLIA [id number] [place] [address] [place] HIV 1+2 Ab+HIV1 p24 Ag IA Ql Non-Reactive Normal Nonreactive [facility] Comment on above: Order Comment: Speci men Type: BLOOD SPECIMENOrdering Facility: [facility] Address: [address] [place] [address] Performed By: #### 7 3752-8, 18336-7, 5195-3 ####[facility] [id number] [place] [address] [place] HIV immunoassay testing algorithm interpretation (S/P/Bld) [Interp] Normal [facility] Comment on above: Order Comment: Speci men Type: BLOOD SPECIMENOrdering Facility: [facility] Address: [address] [place] [address] Result Comment: No e vidence of HIV-1 or HIV-2 infection. Should recent infection be suspected, repeat testing may be considered 2-3 weeks after this draw. [place] Rev. Code 3701.243(E): This information has been [...] test results or diagnoses. Performed By: #### 7 3752-8, 23540-2, 5195-3 ####[facility] LABIA [id number] [place] [address] [place] HbA1c (Bld)on 04-24-2024 Average glucose Estimated from glycated hemoglobin (Bld) [Mass/Vol] 97 mg/dL [facility] Comment on above: eAG: (Estimated aver age glucose) is a calculated value from HgbA1c and is brewery representative of the average blood glucose level in the last 2-3 month period. HbA1c (Bld) [Mass fraction] 5.0 % 4.3 - 5.6 % [facility] Comment on above: [place] Diabetes As sociation guidelines indicate that patients with HgbA1c in the range 5.7-6.4% are at increased risk for development of diabetes, and intervention by lifestyle modification may be beneficial. HgbA1c greater or equal to 6.5% is considered diagnostic of diabetes. [facility] Average glucose Estimated from glycated hemoglobin (Bld) [Mass/Vol] 97 mg/dL Normal [facility] Comment on above: Order Comment: Speci men Type: BLOOD SPECIMENOrdering Facility: [facility] Address: [address] [place] [address] Result Comment: eAG: (Estimated average glucose) is a calculated value from HgbA1c and is brewery representative of the average blood glucose level in the last 2-3 month period. Performed By: #### 5 5454-3 ####[facility] LABIA [id number] [address] STATES OF [facility] HbA1c (Bld) [Mass fraction] 5.0 % Normal 4.3-5.6 [facility] Comment on above: Order Comment: Chao arrieta Type: BLOOD SPECIMENOrdering Facility: [facility] Address: [address] [place] [address] Result Comment: [place] Diabetes Association guidelines indicate that patients with HgbA1c in the range 5.7-6.4% are at increased risk for development of diabetes, and intervention by lifestyle modification may be beneficial. HgbA1c greater or equal to 6.5% is considered diagnostic of diabetes. Performed By: #### 5 5454-3 ####[facility] LABIA [id number] [place] [address] [place] [id number] PLUSon 04-24-2024 Cell-free DNA./Cell-free DNA.total Dosage of chromosome-specific cfDNA (cfDNA) [Molar fraction] 11% Normal [facility] Comment on above: Order Comment: Speci men Type: BLOOD SPECIMENOrdering Facility: [facility] Address: [address] [place] [address] Performed By: #### M AT21 ####[facility] LABCLIA [id number] [place] [address] Chr 13+18+21+X+Y aneuploidy Dosage of chromosome-specific cfDNA Ql (cfDNA) Negative Normal [facility] Comment on above: Order Comment: Speci men Type: BLOOD SPECIMENOrdering Facility: [facility] Address: [address] [place] [address] Performed By: #### M AT21 ####[facility] LABCLIA [id number] [place] [address] Chr 21 trisomy Dosage of chromosome-specific cfDNA Ql (cfDNA) Negative Normal [facility] Comment on above: Order Comment: Speci men Type: BLOOD SPECIMENOrdering Facility: [facility] Address: [address] [place] [address] Performed By: #### M AT21 ####[facility] LABCLIA [id number] [place] [address] Chr X and Y aneuploidy risk Sequencing Ql (cfDNA) [Interp] Not detected Normal [facility] Comment on above: Order Comment: Speci men Type: BLOOD SPECIMENOrdering Facility: [facility] Address: [address] [place] [address] Result Comment: Not Detected Not Detected Performed By: #### M AT21 ####[facility] LABCLIA [id number] [place] [address] Citation Kristopher (Reference lab test) Comment Normal [facility] Comment on above: Order Comment: Speci men Type: BLOOD SPECIMENOrdering Facility: [facility] Address: [address] [place] [address] Result Comment: 1. P isi SCOTT, et al. Fernanda Med. 2012;14(3):296-305. 2. Trina CASTRO et al. Prenat Diag. 2013;33(6):591-597. 3. Jase C, et al. Clin Chem. 2015 Apr;61(4):608-616. 4. Louis SCOTT, et al. Fernanda Med. 2011;13(11):913-920. 5. ACOG/SMFM Practice Bulletin No. 226, Jul 2020. Performed By: #### M AT21 ####[facility] LABCLIA [id number] [place] [address] Gestational age Estimated from conception date Sood Normal [facility] Comment on above: Order Comment: Speci men Type: BLOOD SPECIMENOrdering Facility: [facility] Address: [address] [place] [address] Performed By: #### M AT21 ####[facility] LABCLIA [id number] [place] [address] GESTATIONALAGE AGE > OR = 9W Yes Normal [facility] Comment on above: Order Comment: Speci men Type: BLOOD SPECIMENOrdering Facility: [facility] Address: [address] [place] [address] Performed By: #### M AT21 ####[facility] LABCLIA [id number] [place] [address] Laboratory comment Kristopher (Report) Comment Normal [facility] Comment on above: Order Comment: Speci men Type: BLOOD SPECIMENOrdering Facility: [facility] Address: [address] [place] [address] Result Comment: The MaterniT(R) 21 PLUS laboratory-developed test (LDT) analyzes circulating cell-free DNA from a maternal blood sample. This test is used for screening purposes and not diagnostic. Clinical correlation is recommended. Validation data on twin pregnancies is limited and the ability of this test to detect aneuploidy in higher multiple gestations has not yet been validated. Performed By: #### M AT21 ####[facility] LABCLIA [id number] [place] [address] annual giving director name Nom (Provider) Comment Normal [facility] Comment on above: Order Comment: Speci men Type: BLOOD SPECIMENOrdering Facility: [facility] Address: [address] [place] [address] Result Comment: This specimen showed an expected representation of chromosome 21, 18 and 13 material. Clinical correlation is suggested. Comment Mau Howard MD, PhD, Director, [employer] [place] Performed By: #### M AT21 ####[facility] LABCLIA [id number] [place] [address] LIMITATIONS OF THE TEST Comment Normal [facility] Comment on above: Order Comment: Speci men Type: BLOOD SPECIMENOrdering Facility: [facility] Address: [address] [place] [address] Result Comment: Judith gaviria the results of [...] Xaparin(R), Clexane(R) and Fragmin(R)). Performed By: #### M AT21 ####[facility] LABCLIA [id number] [place] [id number] Monosomy X risk Dosage of chromosome-specific cfDNA Ql (Plasma cell-free+WBC DNA) [Interp] Not detected Normal [facility] Comment on above: Order Comment: Speci men Type: BLOOD SPECIMENOrdering Facility: [facility] Address: [address] [place] [address] Performed By: #### M AT21 ####[facility] LABCLIA [id number] [place] [address] NEGATIVE PREDICTIVE VALUE Note Normal [facility] Comment on above: Order Comment: Speci men Type: BLOOD SPECIMENOrdering Facility: [facility] Address: [address] [place] [address] Result Comment: The Negative Predictive Value (NPV) for trisomy 21, 18, and 13 is greater than 99%. The NPV for SCA and ESS cannot be calculated as SCA and ESS are only reported when an abnormality is detected. Performed By: #### M AT21 ####[facility] LABCLIA [id number] [place] [id number] NOTE Comment Normal [facility] Comment on above: Order Comment: Speci men Type: BLOOD SPECIMENOrdering Facility: [facility] Address: [address] [place] [address] Result Comment: See Notes [employer] is a subsidiary of [employer], using the brand [employer] This test was developed and its performance characteristics determined by [employer] It has not been cleared or approved by the Food and Drug Administration. This laboratory is certified under the Clinical Laboratory Improvement Amendments (CLIA) as qualified to perform high complexity clinical laboratory testing and accredited by the College of [place] (CAP). If there is future clinical need for adding MaterniT GENOME testing, this specimen will be available until term. [facility] samples will not be retained beyond 60 days. [facility] patients will have to send a new sample for re-sequencing ([facility] Test Code: 067079). Performed By: #### M AT21 ####[facility] LABIA [id number] [place] [address] PERFORMANCE CHARACTERISTICS Note Normal [facility] Comment on above: Order Comment: Chao arrieta Type: BLOOD SPECIMENOrdering Facility: [facility] Address: [address] [place] [address] Result Comment: ! Sex ! Accuracy: 99.4% [...] ! ! ! * As reported in [facility] database nstd37 [https://www.ncbi.nlm.nih.gov/dbvar/studies/nstd37/ ] # Estimated Sensitivity. Sensitivity estimated across the observed size distribution of each syndrome [per [facility] database nstd37] and across the range of fractions observed in routine clinical NIPT. Actual sensitivity can also be influenced by other factors such as the size of the event, total sequence counts, amplification bias, or sequence bias. ## Sood gestation only. Performed By: #### M AT21 ####[facility] LABCLIA [id number] [place] [address] POSITIVE PREDICTIVE VALUE N/A Normal [facility] Comment on above: Order Comment: Chao arrieta Type: BLOOD SPECIMENOrdering Facility: [facility] Address: [address] [place] [address] Performed By: #### M AT21 ####[facility] LABCLIA [id number] [place] [address] Reference Lab Test Method Comment Normal [facility] Comment on above: Order Comment: Chao arrieta Type: BLOOD SPECIMENOrdering Facility: [facility] Address: [address] [place] [address] Result Comment: See Notes Circulating cell-free DNA [...] chromosomes 16 and 22. Performed By: #### M AT21 ####[facility] LABCLIA [id number] [place] [address] Sex Dosage of chromosome-specific cfDNA Nom (cfDNA) Comment Normal [facility] Comment on above: Order Comment: Speci men Type: BLOOD SPECIMENOrdering Facility: [facility] Address: [address] [place] [address] Result Comment: Cons istent with Female Performed By: #### M AT21 ####[facility] LABCLIA [id number] [place] [address] Test performance information Kristopher (Unsp spec) Comment Normal [facility] Comment on above: Order Comment: Speci men Type: BLOOD SPECIMENOrdering Facility: [facility] Address: [address] [place] [address] Result Comment: The performance characteristics of the MaterniT(R) 21 PLUS laboratory-developed test (LDT) have been determined in a clinical validation study with women at increased risk for chromosomal aneuploidy.[1-4] Performed By: #### M AT21 ####[facility] LABCLIA [id number] [place] [address] Trisomy 13 risk Dosage of chromosome-specific cfDNA Ql (cfDNA) [Interp] Negative Normal [facility] Comment on above: Order Comment: Speci men Type: BLOOD SPECIMENOrdering Facility: [facility] Address: [address] [place] [address] Performed By: #### M AT21 ####[facility] LABCLIA [id number] [place] [address] Trisomy 18 risk Dosage of chromosome-specific cfDNA Ql (Plasma cell-free+WBC DNA) [Interp] Negative Normal [facility] Comment on above: Order Comment: Chao arrieta Type: BLOOD SPECIMENOrdering Facility: [facility] Address: [address] [place] [address] Performed By: #### M AT21 ####[facility] LABCLIA [id number] [place] [address] RUBELLA IGG ANTIBODYon 04-24 Interpretation and review of laboratory results Normal [facility] Rubella IgG, Qual Positive Positive [facility] Comment on above: The result suggests recent or past exposure to Rubella virus or history of Rubella vaccination. Positive result may also be seen due to presence of passively-transferred antibodies. Please correlate with patient's history. [facility] RUBELLA IGG AB, QUAL Positive Normal [facility] Comment on above: Order Comment: Chao arrieta Type: BLOOD SPECIMENOrdering Facility: [facility] Address: [address] [place] [address] Result Comment: The result suggests recent or past exposure to Rubella virus or history of Rubella vaccination. Positive result may also be seen due to presence of passively-transferred antibodies. Please correlate with patient's history. Performed By: #### R UBIGG ####[facility] [id number] [place] [address] [place] Reagin and Treponema pallidu m IgG and IgM [Interp]on 04-24-2024 T. pallidum IgG+IgM IA Ql (S) Non-Reactive Nonreactive [facility] T. pallidum IgG+IgM IA Ql (S) Non-Reactive Normal Nonreactive [facility] Comment on above: Order Comment: Chao arrieta Type: BLOOD SPECIMENOrdering Facility: [facility] Address: [address] [place] [address] Performed By: #### 7 3752-8, 69579-1, 5195-3 ####[facility] [id number] [place] [id number] [place] Reagin+T pallidum IgG+IgM Se rPl-Impon 04-24-2024 Reagin and Treponema pallidum IgG and IgM [Interp] Cannot exclude recent Treponemal infection if specimen collected within 7-10 days after appearance of suspect lesions or 2-3 weeks after an exposure. Clinical correlation is required. Normal [facility] Comment on above: Order Comment: Speci men Type: BLOOD SPECIMENOrdering Facility: [facility] Address: [address] [place] [address] Performed By: #### 7 3752-8, 28935-3, 5195-3 ####[facility] [id number] [place] [address] [place] SYPHILIS TOTAL W/REFLEXon Reagin and Treponema pallidum IgG and IgM [Interp] Cannot exclude recent Treponemal infection if specimen collected within 7-10 days after appearance of suspect lesions or 2-3 weeks after an exposure. Clinical correlation is required. [facility] TYPE + SCREEN PRENATALon ABO group Nom (Bld) A [facility] Blood group antibody screen Ql Negative [facility] HIstorical Ab Scr Status Negative [facility] Rh Nom (Bld) Positive [facility] Type and Screen Expiration 04/27/2024 23:59 [facility] ABO A Normal [facility] Comment on above: Order Comment: Speci men Type: BLOOD SPECIMEN Ordering Facility: [facility] Address: [address] [place] [address] Performed By: #### T SPN #### [facility] CLIA [id number] [address] [place] [address] [place] HISTORICAL AB SCR STATUS Negative Normal [facility] Comment on above: Order Comment: Speci men Type: BLOOD SPECIMEN Ordering Facility: [facility] Address: [address] [place] [address] Performed By: #### T SPN #### [facility] CLIA [id number] [address] [place] [address] [place] Rh Nom (Bld) Positive Normal [facility] Comment on above: Order Comment: Speci men Type: BLOOD SPECIMEN Ordering Facility: [facility] Address: [address] [place] [address] Performed By: #### T SPN #### [facility] CLIA [id number] [address] [place], [place] [address] [address] [place] TYPE AND SCREEN EXPIRATION 04/27/2024 23:59 Normal [facility] Comment on above: Order Comment: Speci men Type: BLOOD SPECIMEN Ordering Facility: [facility] Address: [address] [place] [address] Performed By: #### T SPN #### [facility] CLIA [id number] [address] [place], [place] [address] [address] CNPNorma 04-20-2024 CNPN Telephone (OBGYF2) AGUSTINA PIMENTEL ([id number]) 4 F DEF Date Time Provider Department 04/20/24 FV OB MFM OBGYF2 During your visit today, we recorded the following information about you: Saskia Marin RN 04/20/2024 4:38 PM Signed Pt called, identified by name and . Pt is transferring care from [place] (has OB appt at [facility] April 24) . Requesting to see MFM as well. Records in Care Everywhere. H/o aortic root dilation, CKD, neurogenic bladder, RTA (renal tubular acidosis). Managed by principal archaeologist and senior telecommunications engineer in [place]. (Sarai Mei and [place]). Current medications: folic acid and antibiotic for a UTI. Will message care nurses for advice for scheduling (cardiac OB vs standard MFM consult) and then call pt back with appointments. Verbalizes understanding and agreement, no questions/concerns at this time. Saskia Marin RN Allergies As of Date: 04/20/2024 (No Known Allergies) Date Reviewed: 04/18/2024 Reviewed by: Marvin Choi APRN.CHASSIS ENGINEER - Fully Assessed Prescriptions as of 04/20/2024 - cephALEXin (KEFLEX) 500 mg capsule Take 1 capsule by mouth four times daily for 10 days. Problem List As Of Date: 04/20/2024 (None) Encounter Status:Closed by SASKIA MARIN [facility] Tele[facility] (OBGWST) AGUSTINA PIMENTEL ([id number]) 4 F DEF Date Time Provider Department 04/18/24 LULÚ WILLS During your visit today, we recorded the [...] Advised pt to notify her urologist at [facility] of Advised pt of Subtech[employer] message sent by [facility] RN to reschedule her 04/20 appt. Office/provider patient wishes to establish care to? [place] Patient aware to sign up for My Chart if she does not already have it, so she can receive the ocular care aide messages. Will forward this encounter to the schedulers in this office. Rudolph Calle RN RN 04/20/2024 3:27 PM Signed Patient has appt - closing encounter. Rudolph D Maura RN Allergies As of Date: 04/18/2024 (No Known Allergies) Date Reviewed: 04/18/2024 Reviewed by: Marvin Choi APRN.CHASSIS ENGINEER - Fully Assessed Reason for Visit: PEAC [6990] Care Coordination [1191] Prescriptions as of 04/20/2024 - cephALEXin (KEFLEX) 500 mg capsule Take 1 capsule by mouth four times daily for 10 days. Problem List As Of Date: 04/18/2024 (None) Encounter Status:Closed by LULÚ WILLS on 04/18/24 [facility] ED NOTEon 04-18-2024 ED NOTE HNO ID: [id number] Author: SONAM CHEN RN Service: ? Author Type: Registered Nurse Type: ED Notes Filed: 04/18/2024 04:06 Note Text: .Pt given discharge instructions at bedside. Pt verbalized understanding of instructions. Reviewed follow up appointments and VS were stable upon leaving. Pt ambulated with steady gait by self off unit. [facility] ED PROV NOTEon 04-18-2024 ED PROV NOTE HNO ID: [id number] Author: MARVIN CHOI APRN.SAM Service: Emergency Medicine Author Type: Nurse Practitioner Type: ED Provider Notes Filed: 04/18/2024 04:26 Note Text: ED Provider Note Patient Name: Agustina Pimentel : 2000 SERVICE DATE: 04/17/24 History Patient presents with: Abdominal Pain 23-year-old female presents emergency department with lower abdominal cramping. She states she went to have a bowel movement approximately 2029 and felt a passage of which she described as a glob. Denies any vaginal bleeding. She is G1, P0 and believes to be approximately 10 weeks. She is taking vitamins but has not yet sought care. Denies any urinary complaints. No fever or chills. No chest pain or shortness of breath. History provided by: Patient and medical records stave cutter used: No History reviewed. No pertinent past [...] bacteria CBC-WBC 11.09, HANDH stable CMP-WNL HCG- 957089 Radiology: Pelvic ultrasound- IMPRESSION: Single intrauterine with [...] which showed (more content not included)... Normal [facility] US PREG TRANSABD <14 WKS LTD on 04-18-2024 US PREG TRANSABD <14 WKS LTD * * *Final Report* * * DATE OF EXAM: Apr 18 2024 1:23AM U 1035 - US PREG TRANSABD <14 WKS LTD / PROCEDURE REASON: Pelvic pain, positive beta-HCG, ergonomic specialist etiology suspected * * * * Physician [...] sac: Present - Embryo: Single present - [place] rump length: 3.3 cm, corresponding gestational age [...] Unremarkable RIGHT ovary. LEFT ovary not visualized. Dredge Operator Supervisor: [facility] Transcribe Date/Time: Apr 18 2024 3:18A Dictated by : JOHN DAUGHERTY MD This examination was interpreted and the report reviewed and electronically signed by: JOHN DAUGHERTY MD on Apr 18 2024 3:28AM EST [id number] [facility] US PREG TRANSVAG <14 WEEKSon 04-18-2024 US PREG TRANSVAG <14 WEEKS * * *Final Report* * * DATE OF EXAM: Apr 18 2024 1:23AM [facility] 1034 - US PREG TRANSVAG <14 WEEKS / PROCEDURE REASON: Pelvic pain, positive beta-HCG, ergonomic specialist etiology suspected * * * * Physician [...] sac: Present - Embryo: Single present - [place] rump length: 3.3 cm, corresponding gestational age [...] Unremarkable RIGHT ovary. LEFT ovary not visualized. Dredge Operator Supervisor: [facility] Transcribe Date/Time: Apr 18 2024 3:18A Dictated by : JOHN DAUGHERTY MD This examination was interpreted and the report reviewed and electronically signed by: JOHN DAUGHERTY MD on Apr 18 2024 3:28AM EST [id number] Normal [facility] B-HCG SerPl-aCncon 4 HCG.beta subunit Qn 753698.0 m[IU]/mL High <5.0 [facility] Comment on above: Order Comment: Speci men Type: BLOOD SPECIMEN Ordering Facility: [facility] Address: [address] [place] [address] Result Comment: ALICE TITATIVE HCG NORMAL RANGES Weeks of Gestation (Weeks Since LMP) 3 Weeks (5.8-71.2 mIU/mL) 4 Weeks (9.5-750 mIU/mL) 5 Weeks (217-7138 mIU/mL) 6 Weeks (158-64612 mIU/mL) 7 Weeks (3697-595061 mIU/mL) 8 Weeks (88700-011608 mIU/mL) 9 Weeks (88632-837113 mIU/mL) 10 Weeks (76251-018211 mIU/mL) 12 Weeks (45987-793837 mIU/mL) Referenced to 4th IS of [facility] Performed By: #### 2 1198-7 #### [facility] CLIA [id number] [place] [address] [place] CBC W Auto Differential pane l (Bld)on 04-17-2024 Basophils (Bld) [#/Vol] 0.05 10*3/uL Normal <0.11 [facility] Comment on above: Order Comment: Speci men Type: BLOOD SPECIMEN Ordering Facility: [facility] Address: [address] [place] [address] Performed By: #### 5 7021-8 #### [facility] CLIA [id number] [address] [facility] [place] [address] [place] Basophils/100 WBC (Bld) 0.5 % Normal [facility] Comment on above: Order Comment: Speci men Type: BLOOD SPECIMEN Ordering Facility: [facility] Address: [address] [place] [address] Performed By: #### 5 7021-8 #### [facility] CLIA [id number] [address] [place] [address] [place] Differential cell count method Nom (Bld) Auto Normal [facility] Comment on above: Order Comment: Speci men Type: BLOOD SPECIMEN Ordering Facility: [facility] Address: [address] [place] [address] Performed By: #### 5 7021-8 #### [facility] CLIA [id number] [address] [place] [address] [place] Eosinophils (Bld) [#/Vol] 0.03 10*3/uL Normal <0.46 [facility] Comment on above: Order Comment: Speci men Type: BLOOD SPECIMEN Ordering Facility: [facility] Address: [address] [place] [address] Performed By: #### 5 7021-8 #### [facility] CLIA [id number] [address] [facility] [place] [address] [place] Eosinophils/100 WBC (Bld) 0.3 % Normal [facility] Comment on above: Order Comment: Speci men Type: BLOOD SPECIMEN Ordering Facility: [facility] Address: [address] [place] [address] Performed By: #### 5 7021-8 #### [facility] CLIA [id number] [address] [place], [place] [address] [place] [address] [place] Erythrocyte distribution width (RBC) [Ratio] 11.9 % Normal 11.5-15.0 [facility] Comment on above: Order Comment: Speci men Type: BLOOD SPECIMEN Ordering Facility: [facility] Address: [address] [place] [address] Performed By: #### 5 7021-8 #### [facility] CLIA [id number] [address] [place] [address] [place] Hematocrit (Bld) [Volume fraction] 40.5 % Normal 36.0-46.0 [facility] Comment on above: Order Comment: Speci men Type: BLOOD SPECIMEN Ordering Facility: [facility] Address: [address] [place] [address] Performed By: #### 5 7021-8 #### [facility] IA [id number] [address] [place] [address] [place] Hemoglobin (Bld) [Mass/Vol] 13.4 g/dL Normal 11.5-15.5 [facility] Comment on above: Order Comment: Speci men Type: BLOOD SPECIMEN Ordering Facility: [facility] Address: [address] [place] [address] Performed By: #### 5 7021-8 #### [facility] [place] [id number] [address] OF [place] Immature granulocytes (Bld) [#/Vol] 0.04 10*3/uL Normal <0.10 [facility] Comment on above: Order Comment: Speci men Type: BLOOD SPECIMEN Ordering Facility: [facility] Address: [address] [place] [address] Performed By: #### 5 7021-8 #### [facility] IA [id number] [address] OF [place] Immature granulocytes/100 WBC (Bld) 0.4 % Normal [facility] Comment on above: Order Comment: Speci men Type: BLOOD SPECIMEN Ordering Facility: [facility] Address: [address] [place] [address] Performed By: #### 5 7021-8 #### [facility] IA [id number] [address] [place] [address] [place] Lymphocytes (Bld) [#/Vol] 1.61 10*3/uL Normal 1.00-4.00 [facility] Comment on above: Order Comment: Speci men Type: BLOOD SPECIMEN Ordering Facility: [facility] Address: [address] [place] [address] Performed By: #### 5 7021-8 #### [facility] IA [id number] [address] STATES [place] Lymphocytes/100 WBC (Bld) 14.5 % Normal [facility] Comment on above: Order Comment: Speci men Type: BLOOD SPECIMEN Ordering Facility: [facility] Address: [address] [place] [address] Performed By: #### 5 7021-8 #### [facility] IA [id number] [address] [place] [address] [place] MCH (RBC) [Entitic mass] 30.7 pg Normal 26.0-34.0 [facility] Comment on above: Order Comment: Speci men Type: BLOOD SPECIMEN Ordering Facility: [facility] Address: [address] [place] [address] Performed By: #### 5 7021-8 #### [facility] IA [id number] [address] [place] [address] [place] MCHC (RBC) [Mass/Vol] 33.1 g/dL Normal 30.5-36.0 [facility] Comment on above: Order Comment: Speci men Type: BLOOD SPECIMEN Ordering Facility: [facility] Address: [address] [place] [address] Performed By: #### 5 7021-8 #### [facility] IA [id number] [place] [address] [place] MCV (RBC) [Entitic vol] 92.9 fL Normal 80.0-100.0 [facility] Comment on above: Order Comment: Speci men Type: BLOOD SPECIMEN Ordering Facility: [facility] Address: [address] [place] [address] Performed By: #### 5 7021-8 #### [facility] IA [id number] [address] [place] [address] [place] Monocytes (Bld) [#/Vol] 0.65 10*3/uL Normal <0.87 [facility] Comment on above: Order Comment: Speci men Type: BLOOD SPECIMEN Ordering Facility: [facility] Address: [address] [place] [address] Performed By: #### 5 7021-8 #### [facility] IA [id number] [address] [place] [address] [place] Monocytes/100 WBC (Bld) 5.9 % Normal [facility] Comment on above: Order Comment: Speci men Type: BLOOD SPECIMEN Ordering Facility: [facility] Address: [address] [place] [address] Performed By: #### 5 7021-8 #### [facility] IA [id number] [address] [place] [address] [place] Neutrophils (Bld) [#/Vol] 8.71 10*3/uL High 1.45-7.50 [facility] Comment on above: Order Comment: Speci men Type: BLOOD SPECIMEN Ordering Facility: [facility] Address: [address] [place] [address] Performed By: #### 5 7021-8 #### [facility] IA [id number] [address] [place] [address] [place] Neutrophils/100 WBC (Bld) 78.4 % Normal [facility] Comment on above: Order Comment: Speci men Type: BLOOD SPECIMEN Ordering Facility: [facility] Address: [address] [place] [address] Performed By: #### 5 7021-8 #### [facility] IA [id number] [address] [facility] [place] [address] [place] Nucleated RBC (Bld) [#/Vol] 10*3/uL Normal <0.01 [facility] Comment on above: Order Comment: Speci men Type: BLOOD SPECIMEN Ordering Facility: [facility] Address: [address] [place] [address] Performed By: #### 5 7021-8 #### [facility] CLIA [id number] [address] [place] [address] [place] Nucleated RBC/100 WBC (Bld) [Ratio] 0.0 /100 WBC Normal [facility] Comment on above: Order Comment: Speci men Type: BLOOD SPECIMEN Ordering Facility: [facility] Address: [address] [place] [address] Performed By: #### 5 7021-8 #### [facility] CLIA [id number] [address] [place] [address] [place] Platelet mean volume (Bld) [Entitic vol] 9.5 fL Normal 9.0-12.7 [facility] Comment on above: Order Comment: Speci men Type: BLOOD SPECIMEN Ordering Facility: [facility] Address: [address] [place] [address] Performed By: #### 5 7021-8 #### [facility] CLIA [id number] [address] [place] [address] [place] Platelets (Bld) [#/Vol] 254 10*3/uL Normal 150-400 [facility] Comment on above: Order Comment: Speci men Type: BLOOD SPECIMEN Ordering Facility: [facility] Address: [address] [place] [address] Performed By: #### 5 7021-8 #### [facility] CLIA [id number] [address] [place] [address] [place] RBC (Bld) [#/Vol] 4.36 10*6/uL Normal 3.90-5.20 [facility] Comment on above: Order Comment: Speci men Type: BLOOD SPECIMEN Ordering Facility: [facility] Address: [address] [place] [address] Performed By: #### 5 7021-8 #### [facility] CLIA [id number] [address] [place] [address] [place] WBC (Bld) [#/Vol] 11.09 10*3/uL High 3.70-11.00 [facility] Comment on above: Order Comment: Speci men Type: BLOOD SPECIMEN Ordering Facility: [facility] Address: [address] [place] [address] Performed By: #### 5 7021-8 #### [facility] CLIA [id number] [address] [place] [address] [facility] Comprehensive metabolic 2000 panelon 04-17-2024 Albumin [Mass/Vol] 4.2 g/dL Normal 3.9-4.9 [facility] Comment on above: Order Comment: Speci men Type: BLOOD SPECIMEN Ordering Facility: [facility] Address: [address] [place] [address] Performed By: #### 2 4323-8 #### [facility] CLIA [id number] [address] [place] [id number] [place] [address] [place] ALP [Catalytic activity/Vol] 91 U/L Normal 34-123 [facility] Comment on above: Order Comment: Speci men Type: BLOOD SPECIMEN Ordering Facility: [facility] Address: [address] [place] [address] Performed By: #### 2 4323-8 #### [facility] CLIA [id number] [address] [place] [address] [facility] ALT [Catalytic activity/Vol] 8 U/L Normal 7-38 [facility] Comment on above: Order Comment: Speci men Type: BLOOD SPECIMEN Ordering Facility: [facility] Address: [address] [place] [address] Performed By: #### 2 4323-8 #### [facility] CLIA [id number] [address] [place] [address] [facility] Anion gap [Moles/Vol] 13 mmol/L Normal 8-15 [facility] Comment on above: Order Comment: Speci men Type: BLOOD SPECIMEN Ordering Facility: [facility] Address: [address] [place] [address] Performed By: #### 2 4323-8 #### [facility] CLIA [id number] [address] [place] [address] [place] AST [Catalytic activity/Vol] 15 U/L Normal 13-35 [facility] Comment on above: Order Comment: Speci men Type: BLOOD SPECIMEN Ordering Facility: [facility] Address: [address] [place] [address] Performed By: #### 2 4323-8 #### [facility] IA [id number] [address] [place] [address] [place] Bilirubin [Mass/Vol] 0.2 mg/dL Normal 0.2-1.3 [facility] Comment on above: Order Comment: Speci men Type: BLOOD SPECIMEN Ordering Facility: [facility] Address: [address] [place] [address] Performed By: #### 2 4323-8 #### [facility] IA [id number] [address] [place] [address] [place] Calcium [Mass/Vol] 9.8 mg/dL Normal 8.5-10.2 [facility] Comment on above: Order Comment: Speci men Type: BLOOD SPECIMEN Ordering Facility: [facility] Address: [address] [place] [address] Performed By: #### 2 4323-8 #### [facility] IA [id number] [address] [place] [address] [place] Chloride [Moles/Vol] 105 mmol/L Normal 98-107 [facility] Comment on above: Order Comment: Speci men Type: BLOOD SPECIMEN Ordering Facility: [facility] Address: [address] [place] [address] Performed By: #### 2 4323-8 #### [facility] IA [id number] [address] [place] [address] [place] CO2 [Moles/Vol] 23 mmol/L Normal 22-30 [facility] Comment on above: Order Comment: Speci men Type: BLOOD SPECIMEN Ordering Facility: [facility] Address: [address] [place] [id number] Performed By: #### 2 4323-8 #### [facility] CLIA [id number] [address] [place] [address] [place] Creatinine [Mass/Vol] 0.94 mg/dL Normal 0.58-0.96 [facility] Comment on above: Order Comment: Speci men Type: BLOOD SPECIMEN Ordering Facility: [facility] Address: [address] [place] [address] Performed By: #### 2 4323-8 #### [facility] CLIA [id number] [address] [place] [address] [place] Creatinine and Glomerular filtration rate.predicted panel (S/P/Bld) 89 mL/min/1.73m??? Normal >=60 [facility] Comment on above: Order Comment: Rosmeryi men Type: BLOOD SPECIMEN Ordering Facility: [facility] Address: [address] [place] [address] Result Comment: Audra mated Glomerular Filtration Rate [...] GFR. Performed By: #### 2 4323-8 #### [facility] CLIA [id number] [address] [place] [address] [place] Glucose [Mass/Vol] 80 mg/dL Normal 74-99 [facility] Comment on above: Order Comment: Rosmeryi men Type: BLOOD SPECIMEN Ordering Facility: [facility] Address: [address] [place] [address] Result Comment: The [place] Diabetes Association (ADA) provides guidance for cutoff [...] Standards of Medical Care in Diabetes 2016, [place] [employer]. Diabetes Care. 2016.39(Suppl 1). Performed By: #### 2 4323-8 #### [facility] [place] [id number] [address] [place] [address] [place] Potassium [Moles/Vol] 4.8 mmol/L Normal 3.7-5.1 [facility] Comment on above: Order Comment: Rosmeryi meenakshi Type: BLOOD SPECIMEN Ordering Facility: [facility] Address: [address] [place] [address] Performed By: #### 2 4323-8 #### [facility] IA [id number] [place] [address] [place] Protein [Mass/Vol] 7.1 g/dL Normal 6.3-8.0 [facility] Comment on above: Order Comment: Rosmeryi meenakshi Type: BLOOD SPECIMEN Ordering Facility: [facility] Address: [address] [place] [address] Performed By: #### 2 4323-8 #### [facility] IA [id number] [address] [place] [address] [place] Sodium [Moles/Vol] 141 mmol/L Normal 136-144 [facility] Comment on above: Order Comment: Rosmeryi men Type: BLOOD SPECIMEN Ordering Facility: [facility] Address: [address] [place] [address] Performed By: #### 2 4323-8 #### [facility] IA [id number] [address] [place] [address] [place] Urea nitrogen [Mass/Vol] 16 mg/dL Normal 7-21 [facility] Comment on above: Order Comment: Rosmeryi men Type: BLOOD SPECIMEN Ordering Facility: [facility] Address: [address] [place] [address] Performed By: #### 2 4323-8 #### [facility] CLIA [id number] [facility] [place] [address] [place] ED NOTEon 04-17-2024 ED NOTE HNO ID: [id number] Author: YOVANA CASTORENA, RN Service: Nursing Author Type: Registered Nurse Type: ED Notes Filed: 04/17/2024 21:38 Note Text: Pt states abd pain and cramping the last couple of days with vaginal discharge Normal [facility] ED Triage Noteon 04-17-2024 ED Triage Note HNO ID: [id number] Author: MIKAYLA SALAZAR MD Service: Emergency Medicine [...] bedside clinician. SIGNATURE: Mikayla Salazar MD Normal [facility] URINALYSIS, REFLEX MICROSCOP ICon 04-17-2024 Bacteria LM.HPF (Urine sed) [#/Area] Rare Abnormal None Seen [facility] Comment on above: Order Comment: Speci men Type: URINE SPECIMEN Ordering Facility: [facility] Address: [address] [place] [address] Performed By: #### L [id number] #### [facility] CLIA [id number] [address] [place] [address] [place] Bilirubin Ql (U) Negative Normal Negative [facility] Comment on above: Order Comment: Speci men Type: URINE SPECIMEN Ordering Facility: [facility] Address: [address] [place] [address] Performed By: #### L [id number] #### [facility] CLIA [id number] [address] [place] [address] [place] Clarity (Unsp spec) Clear Normal Clear [facility] Comment on above: Order Comment: Speci men Type: URINE SPECIMEN Ordering Facility: [facility] Address: [address] [place] [address] Performed By: #### L [id number] #### [facility] CLIA [id number] [address] [place] [address] [place] Color (U) Light Yellow Normal yellow [facility] Comment on above: Order Comment: Speci men Type: URINE SPECIMEN Ordering Facility: [facility] Address: [address] [place] [address] Performed By: #### L [id number] #### [facility] IA [id number] [address] [place] [address] [facility] Glucose Test strip (U) [Mass/Vol] Negative Normal Trace, Negative [facility] Comment on above: Order Comment: Speci men Type: URINE SPECIMEN Ordering Facility: [facility] Address: [address] [place] [address] Performed By: #### L [id number] #### [facility] IA [id number] [place] [address] [place] Hemoglobin Ql (U) Trace Normal Negative, Trace [facility] Comment on above: Order Comment: Speci men Type: URINE SPECIMEN Ordering Facility: [facility] Address: [address] [place] [address] Performed By: #### L [id number] #### [facility] IA [id number] [address] [place] [address] [place] Ketones Ql (U) Negative Normal Negative, Trace [facility] Comment on above: Order Comment: Speci men Type: URINE SPECIMEN Ordering Facility: [facility] Address: [address] [place] [address] Performed By: #### L [id number] #### [facility] IA [id number] [address] [place] [address] [place] Leukocyte esterase Test strip Ql (U) 500 Mary/uL Abnormal Negative, 25 Mary/uL [facility] Comment on above: Order Comment: Speci men Type: URINE SPECIMEN Ordering Facility: [facility] Address: [address] [place] [address] Performed By: #### L [id number] #### [facility] IA [id number] [address] [place] [address] [place] Nitrite Ql (U) Negative Normal Negative [facility] Comment on above: Order Comment: Speci men Type: URINE SPECIMEN Ordering Facility: [facility] Address: [address] [place] [address] Performed By: #### L [id number] #### [facility] IA [id number] [address] [place] [address] [place] pH (U) 6.5 [pH] Normal 5.0-8.0 [facility] Comment on above: Order Comment: Speci men Type: URINE SPECIMEN Ordering Facility: [facility] Address: [address] [place] [address] Performed By: #### L [id number] #### [facility] IA [id number] [address] [place] [address] [place] Protein (U) [Mass/Vol] 1+ Abnormal Trace, Negative [facility] Comment on above: Order Comment: Speci men Type: URINE SPECIMEN Ordering Facility: [facility] Address: [address] [place] [address] Performed By: #### L [id number] #### [facility] IA [id number] [address] [place], [place] [address] [place] RBC LM.HPF (Urine sed) [#/Area] 11-25 /HPF Abnormal 0-3 /HPF [facility] Comment on above: Order Comment: Speci men Type: URINE SPECIMEN Ordering Facility: [facility] Address: [address] [place] [address] Performed By: #### L [id number] #### [facility] IA [id number] [address] [place] [address] [place] Specific gravity (U) [Rel density] 1.016 Normal 1.005-1.030 [facility] Comment on above: Order Comment: Speci men Type: URINE SPECIMEN Ordering Facility: [facility] Address: [address] [place] [address] Performed By: #### L [id number] #### [facility] CLIA [id number] [facility] [place], [place] [id number] [place] [address] [place] Urobilinogen Ql (U) Normal Normal Normal [facility] Comment on above: Order Comment: Speci men Type: URINE SPECIMEN Ordering Facility: [facility] Address: [address] [place] [address] Performed By: #### L [id number] #### [facility] CLIA [id number] [place] WBC LM.HPF (Urine sed) [#/Area] /[HPF] Abnormal 0-5 /HPF [facility] Comment on above: Order Comment: Speci men Type: URINE SPECIMEN Ordering Facility: [facility] Address: [address] [place] [address] Performed By: #### L [id number] #### [facility] CLIA [id number] [address] [facility]. [address] [place] CNPNorma 04-16-2024 CNPN Telephone (OBGYF2) AGUSTINA PIMENTEL ([id number]) 02 F DEF Date Time Provider Department 04/16/24 FV OB MFM OBGYF2 During your visit today, we recorded the following information about you: Abelardo Ramon, ANGIE 04/16/2024 2:58 PM Signed Called pt and [...] rescheduled appropriately. Provided call back number. Abelardo Ramon RN Allergies As of Date: 04/16/2024 (Not on File) Date Reviewed: Never Reviewed Prescriptions as of 04/18/2024 - cephALEXin (KEFLEX) 500 mg capsule Take 1 capsule by mouth four times daily for 10 days. Problem List As Of Date: 04/16/2024 (None) Encounter Status:Closed by ABELARDO RAMON on 04/16/24 Normal [facility] US PREG LESS THAN 14 WKS SIN LAURAon 04-04-2024 US PREG LESS THAN 14 WKS SINGLE US PREG LESS THAN 14 WKS SINGLE Pelvic ultrasound History:Dates and viability Comparison:None Findings: Single live IUP at 8 weeks 0 days. [place]-rump length 1.6 cm. Heart rate 160 beats [...] Saldivar MD on 04/04/2024 2:04 PM Normal [facility] HCG.beta subunit IA 3rd IS Q non 03-24-2024 [place] [address] m[IU]/mL Normal [facility] Comment on above: Result Comment: NEW REFERENCE [...] neoplasms. Performed By: #### 6 30-4 #### [facility] ([id number]) [address], [address] [place] [address] Follitropin Qnon 03-22-2024 FOLLICLE STIM HORMONE 6.9 mIU/mL Normal [facility] Comment on above: Result Comment: NORMAL FEMALE Luteal 1.8-5.1 mIU/mL Follicular 3.8-8.8 mIU/mL Mid Cycle 4.5-22.5 mIU/mL [place] 16.7-113.6 mIU/mL Performed By: #### 6 30-4 #### [facility] ([id number]) [address], [address] [place] [address] HCG.beta subunit IA 3rd IS Q non 03-22-2024 [place] [address] m[IU]/mL Normal P [facility] Comment on above: Result Comment: NEW REFERENCE [...] neoplasms. Performed By: #### 6 30-4 #### [facility] ([id number]) [address], [address] [place] [address] Lutropin Qnon 03-22-2024 LUTEINIZING HORMONE 3.1 mIU/mL Normal [facility] Comment on above: Result Comment: NORMAL FEMALE Follicular 2.1-10.9 mIU/mL Mid Cycle 19.2-103 mIU/mL Luteal 1.2-12.9 mIU/mL Post Cammy 10.9-58.6 mIU/mL Performed By: #### 6 30-4 #### [facility] ([id number]) [address], [address] [place] [address] Prolactin [Mass/Vol]on 03-22 PROLACTIN 27.2 ng/mL High 3.3-26.7 [facility] Comment on above: Performed By: #### 6 30-4 #### [facility] ([id number]) [address], [address] [place] [address] THYROID PROFILEon 03-22-2024 Free T4 [Mass/Vol] 0.90 ng/dL Normal 0.61-1.60 [facility] Comment on above: Performed By: #### 6 30-4 #### [facility] ([id number]) [address], [address] [place] [address] TSH 1.91 uIU/mL Normal 0.49-4.67 [facility] Comment on above: Performed By: #### 6 30-4 #### [facility] ([id number]) [address], [address] [place] [address] CBC AND AUTO DIFFon 02-05-20 24 ABSOLUTE BASOPHIL 0.1 X10E9/L Normal 0.0-0.2 [facility] Comment on above: Performed By: #### Dani ROBISON CMP, 3039-12 #### [facility] ([id number]) [address] [place] [address] ABSOLUTE NEUTROPHIL 5.6 X10E9/L Normal 1.5-6.6 [facility] Comment on above: Performed By: #### Dani ROBISON CMP, 3039-12 #### [facility] ([id number]) [address] [place] [address] Basophils/100 WBC (Bld) 0.8 % Normal [facility] Comment on above: Performed By: #### Dani ROBISON CMP, 3039-12 #### [facility] ([id number]) [address] [place] [address] Eosinophils (Bld) [#/Vol] 0.2 10*3/uL Normal 0.0-0.4 [facility] Comment on above: Performed By: #### Dani ROBISON CMP, 3039-12 #### [facility] ([id number]) [address] [place] [address] Eosinophils/100 WBC (Bld) 2.0 % Normal [facility] Comment on above: Performed By: #### Dani ROBISON CMP, 3039-12 #### [facility] ([id number]) [address] [place] [address] Erythrocyte distribution width (RBC) [Ratio] 12.1 % Normal 11.5-15.0 [facility] Comment on above: Performed By: #### Dani ROBISON CMP, 3039-12 #### [facility] ([id number]) [address] [place] [address] Hematocrit (Bld) [Volume fraction] 40.9 % Normal 35-47 [facility] Comment on above: Performed By: #### Dani ROBISON CMP, 3040-3 #### [facility] ([id number]) [address] [place] [address] Hemoglobin (Bld) [Mass/Vol] 14.2 g/dL Normal 11.7-15.5 [facility] Comment on above: Performed By: #### Dani ROBISON CMP, 3039-3 #### [facility] ([id number]) [address] [place] [address] Lymphocytes (Bld) [#/Vol] 1.8 10*3/uL Normal 1.0-3.5 [facility] Comment on above: Performed By: #### Dani ROBISON CMP, 3039-12 #### [facility] ([id number]) [address] [place] [address] Lymphocytes/100 WBC (Bld) 22.6 % Normal [facility] Comment on above: Performed By: #### Dani ROBISON CMP, 3 #### [facility] ([id number]) [address] [place] [address] MCH (RBC) [Entitic mass] 30.9 pg Normal 27-34 [facility] Comment on above: Performed By: #### Dani ROBISON CMP, 3039-12 #### [facility] ([id number]) [address] [place] [address] MCHC (RBC) [Mass/Vol] 34.7 g/dL Normal 32-36 [facility] Comment on above: Performed By: #### Dani ROBISON CMP, 3 #### [facility] ([id number]) [address] [place] [address] MCV (RBC) [Entitic vol] 89 fL Normal 80-100 [facility] Comment on above: Performed By: #### Dani ROBISON CMP, 3039-3 #### [facility] ([id number]) [address] [place] [address] [place] [address] Monocytes (Bld) [#/Vol] 0.5 10*3/uL Normal 0-0.9 [facility] Comment on above: Performed By: #### Dani ROBISON CMP, 3039-3 #### [facility] ([id number]) [address] [place] [address] Monocytes/100 WBC (Bld) 5.7 % Normal [facility] Comment on above: Performed By: #### Dani ROBISON [facility], 3039-12 #### [facility] ([id number]) [address] [place] [address] Neutrophils/100 WBC (Bld) 68.9 % Normal [facility] Comment on above: Performed By: #### Dani ROBISON CMP, 3039-12 #### [facility] ([id number]) [address] [place] [address] Platelet mean volume (Bld) [Entitic vol] 8.3 fL Normal 7-12 [facility] Comment on above: Performed By: #### Dani ROBISON CMP, 3039-12 #### [facility] ([id number]) [address] [place] [address] Platelets (Bld) [#/Vol] 217 10*3/uL Normal 150-450 [facility] Comment on above: Performed By: #### Dani ROBISON CMP, 3039-12 #### [facility] ([id number]) [address] [place] [address] RBC COUNT 4.59 X10E12/L Normal 3.80-5.20 [facility] Comment on above: Performed By: #### Dani ROBISON CMP, 3 #### [facility] ([id number]) [address] [place] [address] WBC (Bld) [#/Vol] 8.1 10*3/uL Normal 4.0-11.0 [facility] Comment on above: Performed By: #### C BCA, CMP, 3039-3 #### [facility] ([id number]) [address] [place] [address] COMPREHENSIVE METABOLIC PANE Chris 02-05-2024 Albumin [Mass/Vol] 4.5 g/dL Normal 3.2-5.3 [facility] Comment on above: Performed By: #### C RICKI, CMP, 3039-3 #### [facility] ([id number]) [address] [place] [address] ALP [Catalytic activity/Vol] 90 U/L Normal 39-130 [facility] Comment on above: Performed By: #### Dani BCA, CMP, 3 #### [facility] ([id number]) [address] [place] [address] ALT [Catalytic activity/Vol] 16 U/L Normal 0-31 [facility] Comment on above: Performed By: #### C BCA, CMP, 3 #### [facility] ([id number]) [address] [place] [address] Anion gap [Moles/Vol] 10 mmol/L Normal 5-15 [facility] Comment on above: Performed By: #### C BCA, CMP, 3039-3 #### [facility] ([id number]) [address] [place] [address] AST [Catalytic activity/Vol] 15 U/L Normal 0-41 [facility] Comment on above: Performed By: #### C BCA, CMP, 3039-3 #### [facility] ([id number]) [address] [place] [address] Bilirubin [Mass/Vol] 0.7 mg/dL Normal 0.3-1.2 [facility] Comment on above: Performed By: #### C BCA, CMP, 3039-3 #### [facility] ([id number]) [address] [place] [address] Calcium [Mass/Vol] 9.1 mg/dL Normal 8.5-10.5 [facility] Comment on above: Performed By: #### C GRACIELA ROBISON, 0-3 #### [facility] ([id number]) [address] [place] [address]184 Chloride [Moles/Vol] 106 mmol/L Normal 98-109 [facility] Comment on above: Performed By: #### C RICKI [facility], 3039-3 #### [facility] ([id number]) [address] [place] [address]67 CO2 [Moles/Vol] 21 mmol/L Low 22-32 [facility] Comment on above: Performed By: #### C RICKI [facility], 3039-3 #### [facility] ([id number]) [address] [place] [address] Creatinine [Mass/Vol] 1.11 mg/dL High 0.40-1.00 [facility] Comment on above: Result Comment: METH OD TRACEABLE TO IDMS STANDARD Performed By: #### C GRACIELA ROBISON, 3040-3 #### [facility] ([id number]) [address] [place] [address] GFR/1.73 sq M.predicted among non-blacks MDRD (S/P/Bld) [Vol rate/Area] 73 mL/min/{1.73_m2} Normal >59 [facility] Comment on above: Result Comment: Reported eGFR is based on the CKD-EPI 2020 equation that does not use a race coefficient. Performed By: #### C GRACIELA ROBISON, 3040-3 #### [facility] ([id number]) [address] [place] [address]279 Glucose [Mass/Vol] 98 mg/dL Normal 65-99 [facility] Comment on above: Performed By: #### C BCA, CMP, 3040-3 #### [facility] ([id number]) [address] [place] [address] Potassium [Moles/Vol] 4.8 mmol/L Normal 3.5-5.0 [facility] Comment on above: Performed By: #### C BCA CMP, 3040-3 #### [facility] ([id number]) [address] [place] [address] 12717 Protein [Mass/Vol] 7.5 g/dL Normal 6.0-8.0 [facility] Comment on above: Performed By: #### Dani BCA CMP, 3040-3 #### [facility] ([id number]) [address] [place] [address] 21153 Sodium [Moles/Vol] 137 mmol/L Normal 134-146 [facility] Comment on above: Performed By: #### Dani BCA, CMP, 3040-3 #### [facility] ([id number]) [address] [place] [address]375 Urea nitrogen [Mass/Vol] 18 mg/dL Normal 5-23 [facility] Comment on above: Performed By: #### Dani BCA, CMP, 3040-3 #### [facility] ([id number]) [address] [place] [address] ABDOMEN AND PELVIS W CONT on [...] Perez MD on 02/05/2024 7:23 AM Normal [facility] HCG ( test) IA.rapi d Ql (S)on 02-05-2024 SERUM Negative Normal NEG [facility] Comment on above: Performed By: #### 8 0385-8 #### [facility] ([id number]) [address] [place] [address] LIPASEon 02-05-2024 Lipase [Catalytic activity/Vol] 35 U/L Normal 17-40 [facility] Comment on above: Performed By: #### C BCA, CMP, 3040-3 #### [facility] ([id number]) [address] [place] [address]408 URN MACROSCOPIC NURon 2023 BILIRUBIN HANANE Negative Normal NEG [facility] Comment on above: Performed By: #### 6 30-4 #### [facility] ([id number]) [address] [place] [address] BLOOD/HGB HANANE Trace Abnormal NEG [facility] Comment on above: Performed By: #### 6 30-4 #### [facility] ([id number]) [address] [place] [address] GLUCOSE HANANE Negative Normal NEG [facility] Comment on above: Performed By: #### 6 30-4 #### [facility] ([id number]) [address] [place] [address] KETONES HANANE 15 mg/dL Abnormal NEG [facility] Comment on above: Performed By: #### 6 30-4 #### [facility] ([id number]) [address] [place] [address] LEUKOCYTE ESTERASE HANANE Negative Normal NEG [facility] Comment on above: Performed By: #### 6 30-4 #### [facility] ([id number]) [address] [place] [address] NITRITE HANANE Negative Normal NEG [facility] Comment on above: Performed By: #### 6 30-4 #### [facility] ([id number]) [address] [place] [address] PH HANANE 6.0 Normal 5.0-8.5 [facility] Comment on above: Performed By: #### 6 30-4 #### [facility] ([id number]) [address] [place] [address] PROTEIN HANANE 30 mg/dL Abnormal NEG [facility] Comment on above: Performed By: #### 6 30-4 #### [facility] ([id number]) [address] [place] [address] SPECIFIC GRAVITY HANANE 1.020 Normal 1.003-1.035 [facility] Comment on above: Performed By: #### 6 30-4 #### [facility] ([id number]) [address] [place] [address] UROBILINOGEN HANANE 0.2 eu/dL Normal <1.1 [facility] Comment on above: Performed By: #### 6 30-4 #### [facility] ([id number]) [address] [place] [address], [address] [place] [address] 36on 01-03-2024 36 Patient called and would like to know if it would be ok for her to get gardisil injection? Normal [facility] CHLAMYDIA/GC PCR, FLon 11-15 CHLAMYDIA/GC PCR, FL SPECIMEN SOURCE ThinPrep CHLAMYDIA DNA(PCR) Positive (qualifier value) Chlamydia trachomatis detected by nucleic acid amplification. GONORRHOEAE DNA(PCR) Negative (qualifier value) Neisseria gonorrhoeae not detected by nucleic acid amplification. This does not exclude the possibility of infection because results are dependent on adequate specimen collection. Normal [facility] Comment on above: Performed By: #### C GT #### [facility] ([id number]) [address] [facility], [place] [address] [facility] ([id number]) [address] [place] [address], [address] [place] [address] Cytologyon 11-15-2023 Cytology Abnormal [facility] Comment on above: Result Comment: [facility] [employer] [facility] [address] [place] [address] Gynecologic Cytology Consultation Patient Name:AGUSTINA PIMENTEL:2000 (Age: 23)Gender:FTaken:4Reported:11/23/2023hysician(s):Kathryn Nettles M.D. ([phone])Copy To: Rec. #:[id number]: #[id number] Final Cytologic Interpretation ThinPrep Pap Test (Cervical): Satisfactory for evaluation. A transformation zone component is present. SQUAMOUS EPITHELIAL CELL ABNORMALITY Atypical squamous cells of undetermined significance (ASC-US). wak/11/23/2023 Interpretation performed at [facility], [address] [place] [id number], License number: [id number]. Electronically Signed Out By Benton Jones MD Date of Last Menstrual Period: 10/08/23 Other Clinical Conditions: Z01.419 Tongue And Quarter Stitcher exam wo/abn findings Z12.72 Screeing for malignant neoplasm of vagina Z11.3 Encntr screen for infections w sexl mode of transmiss Source of Specimen ThinPrep Pap Test (Cervical) Thin Prep Pap (MANUFACTURING TEAM MEMBER) Fee Code(s): G0145, 57307 HIGH RISK HPV W/GENOon 11-15 HPV 31+33+35+39+45+51+52+ 56+58+59+66+68 DNA DADA+probe Ql (Cvx) HPV SPECIMEN TYPE ThinPrep HPV 16 Negative (qualifier value) HPV 18 Negative (qualifier value) OTHER HIGH RISK HPV Positive (qualifier value) For the DNA of any or combination of the following HPV types: 31,33,35,45, 52,56,58,59,66 and 68. Normal [facility] Comment on above: Performed By: #### 7 1431-1 #### [facility] ([id number]) [address] [place] [address], FIRST FLO[place], [place] [id number] [place] [address] LAB ([id number]) [address] [place] [address], [address] [place] [address] VAGINITIS PANEL PCRon 2023 VAGINITIS PANEL PCR [...] clinical presentation to determine patient diagnosis. Normal [facility] Comment on above: Performed By: #### V PPCR #### [facility] ([id number]) [address], [address] [place] [address] POCT , urineon 10-18 Beta HCG ( test) Ql (U) Negative [facility] Interpretation and review of laboratory results Normal [facility] 36on 10-04-2023 36 Patient has mitpranoff, she [...] to the ED for an evaluation. Normal [facility] URINE CULTUREon 10-04-2023 Bacteria identified Cx Nom (U) CULTURE RESULTS >100,000 ORGANISMS/mL STREPTOCOCCUS AGALACTIAE (GROUP B) Abnormal [facility] Comment on above: Performed By: #### 6 30-4 #### [facility] ([id number]) [address], [address] [place] [address] URN MACROSCOPIC NURon 2022 BILIRUBIN HANANE Negative Normal NEG [facility] Comment on above: Performed By: #### N UM #### [facility] ([id number]) [address] [place] [address] BLOOD/HGB HANANE Trace Abnormal NEG [facility] Comment on above: Performed By: #### N UM #### [facility] ([id number]) [address] [place] [address] GLUCOSE HANANE Negative Normal NEG [facility] Comment on above: Performed By: #### N UM #### [facility] ([id number]) [address] [place] [address] KETONES HANANE Negative Normal NEG [facility] Comment on above: Performed By: #### N UM #### [facility] ([id number]) [address] [place] [address] LEUKOCYTE ESTERASE HANANE Negative Normal NEG [facility] Comment on above: Performed By: #### N UM #### [facility] ([id number]) [address] [place] [address] NITRITE HANANE Negative Normal NEG [facility] Comment on above: Performed By: #### N UM #### [facility] ([id number]) [address] [place] [address] PH HANANE 6.5 Normal 5.0-8.5 [facility] Comment on above: Performed By: #### N UM #### [facility] ([id number]) [address] [place] [address] PROTEIN HANANE 100 mg/dL Abnormal NEG [facility] Comment on above: Performed By: #### N UM #### [facility] ([id number]) [address] [place] [address] SPECIFIC GRAVITY HANANE 1.020 Normal 1.003-1.035 [facility] Comment on above: Performed By: #### N UM #### [facility] ([id number]) [address] [place] [address] UROBILINOGEN HANANE 0.2 eu/dL Normal <1.1 [facility] Comment on above: Performed By: #### N UM #### [facility] ([id number]) [address] [place] [address] BASIC METABOLIC PANELon 08-3 Anion gap [Moles/Vol] 12 mmol/L Normal 7-20 [facility] Comment on above: Performed By: #### L AB15 #### [facility] (BEAKER) [address] [place] [address] Calcium [Mass/Vol] 10.0 mg/dL Normal 8.6-10.3 [facility] Comment on above: Performed By: #### L AB15 #### [facility] (BEAKER) [address] [place] [address] Chloride [Moles/Vol] 107 mmol/L Normal 98-107 [facility] Comment on above: Performed By: #### L AB15 #### [facility] (BEAKER) [address] [place] [address] CO2 [Moles/Vol] 27 mmol/L Normal 21-31 [facility] Comment on above: Performed By: #### L AB15 #### [facility] ([facility]) [address] [place] [address] Creatinine [Mass/Vol] 1.08 mg/dL Normal 0.60-1.20 [facility] Comment on above: Performed By: #### L AB15 #### [facility] ([facility]) [address] [place] [address] GLOMERULAR FILTRATION RATE ML/MIN/1.73 SQ M.PREDICTED 75.4 mL/min/1.73m*2 Normal >60.0 [facility] Comment on above: Result Comment: [facility]???s estimated glomerular filtration rate (eGFR) will [...] individuals. Performed By: #### L AB15 #### [facility] ([facility]) [address] [place] [address] Glucose [Mass/Vol] 83 mg/dL Normal 70-100 [facility] Comment on above: Performed By: #### L AB15 #### [facility] ([facility]) [address] [place] [address] Potassium [Moles/Vol] 5.2 mmol/L High 3.5-5.1 [facility] Comment on above: Performed By: #### L AB15 #### [facility] ([facility]) [address] [place] [address] Sodium [Moles/Vol] 141 mmol/L Normal 136-145 [facility] Comment on above: Performed By: #### L AB15 #### [facility] ([facility]) [address] [place] [address] Urea nitrogen [Mass/Vol] 15 mg/dL Normal 7-25 [facility] Comment on above: Performed By: #### L AB15 #### [facility] ([facility]) [address] [place] [address] UREA NITROGEN/CREATININE (MASS RATIO) IN SER/PLAS 13.9 Normal [facility] Comment on above: Performed By: #### L AB15 #### [facility] ([facility]) [address] [place] [address] CBCon 06-16-2023 Erythrocyte distribution width (RBC) [Ratio] 12.3 % Normal 11.5-15.0 [facility] Comment on above: Performed By: #### L [id number] ####[facility] ([facility])[address] [place] [address] ERYTHROCYTE MEAN CORPUSCULAR HEMOGLOBIN CONCENTRATION (G/DL) BY AUTOMATED 32.2 g/dL Normal 32.0-35.0 [facility] Comment on above: Performed By: #### L [id number] ####[facility] ([facility])[address] [place] [address] Hematocrit (Bld) [Volume fraction] 42.8 % Normal 36.0-48.0 [facility] Comment on above: Performed By: #### L [id number] ####[facility] ([facility])[address] [place] [address] Hemoglobin (Bld) [Mass/Vol] 13.8 g/dL Normal 12.0-15.0 [facility] Comment on above: Performed By: #### L [id number] ####[facility] ([facility])[address] [address] MCH (RBC) [Entitic mass] 29.3 pg Normal 27.0-33.0 [facility] Comment on above: Performed By: #### L [id number] ####[facility] ([facility])[address] [place] [address] MCV (RBC) [Entitic vol] 90.9 fL Normal 82.0-98.0 [facility] Comment on above: Performed By: #### L [id number] ####[facility] ([facility])[address] [place] [address] PLATELETS (10*3/UL) IN BLOOD AUTOMATED COUNT 273 10*3/uL Normal 150-400 [facility] Comment on above: Performed By: #### L [id number] ####[facility] ([facility])[address] [place] [address] RBC (Bld) [#/Vol] 4.71 10*6/uL Normal 3.80-5.00 [facility] Comment on above: Performed By: #### L [id number] ####[facility] ([facility])[address] [place] [address] WBC (Bld) [#/Vol] 7.35 10*3/uL Normal 4.00-10.60 [facility] Comment on above: Performed By: #### L [id number] ####[facility] ([facility])[address] [place] [address] CREATININE, URINE, RANDOMon 06-16-2023 Creatinine (U) [Mass/Vol] 101.0 mg/dL Normal 26-299 [facility] Comment on above: Performed By: #### L [id number] #### [facility] ([facility]) [address] [place] [address] Labon 06-16-2023 Lab [id number] Dhruv Pimentelyssa 2000 F Date Provider Department Center 06/16/2023 2242-[facility] RESOURCE [facility] Comprehensiv Family History Problem Relation Age of Onset Bipolar disorder Mother Constipation Mother Family Status - Relation Status Age at Mother Normal [facility] MAGNESIUMon 06-16-2023 Magnesium [Mass/Vol] 1.7 mg/dL Low 1.9-2.7 [facility] Comment on above: Performed By: #### L [id number] ####[facility] ([facility])[address] [place] [address] Office Visiton 06-16-2023 Follow-up visit [id number] Agustina Pimentel 2000 F Date Provider Department [place] 06/16/202335409-YDLSXXLOR LOZANO [facility] Comprehensiv Family History Problem Relation Age of Onset Bipolar disorder Mother Constipation Mother Family Status - Relation Status Age at Mother Level of Service:54674 [place] OFFICE/OUTPATIENT ESTABLISHED MOD MDM 30-39 MIN Reason for Visit and Comments: Follow-up [842996] Normal [facility] PROTEIN, URINE, RANDOMon Protein (U) [Mass/Vol] 38.4 mg/dL Normal [facility] Comment on above: Result Comment: Ther e are no established reference values for random urine specimens. Performed By: #### L [id number] #### [facility] ([facility]) [address] [place] [address] URINALYSISon 06-16-2023 BILIRUBIN, TOTAL PRESENCE IN URINE Negative Normal Negative [facility] Comment on above: Performed By: #### L [id number] #### [facility] ([facility]) [address] [place] [address] Clarity (U) Slightly Cloudy Abnormal Clear [facility] Comment on above: Performed By: #### L [id number] #### [facility] ([facility]) [address] [place] [address] Color (U) Yellow Normal Yellow [facility] Comment on above: Performed By: #### L [id number] #### [facility] ([facility]) [address] [place] [address] Glucose (U) [Mass/Vol] Negative Normal Negative [facility] Comment on above: Performed By: #### L [id number] #### [facility] ([facility]) [address] [place] [address] HEMOGLOBIN PRESENCE IN URINE Moderate Abnormal Negative [facility] Comment on above: Performed By: #### L [id number] #### [facility] ([facility]) [address] [place] [address] Ketones Ql (U) Negative Normal Negative [facility] Comment on above: Performed By: #### L [id number] #### [facility] ([facility]) [address] [place] [address] LEUKOCYTE ESTERASE PRESENCE IN URINE BY TEST STRIP Small Abnormal Negative [facility] Comment on above: Performed By: #### L [id number] #### [facility] ([facility]) [address] [place] [address] NITRITE PRESENCE IN URINE Negative Normal Negative [facility] Comment on above: Performed By: #### L [id number] #### [facility] ([facility]) [address] [place] [address] pH (U) 7.0 [pH] Normal 5.0-8.0 [facility] Comment on above: Performed By: #### L [id number] #### [facility] ([facility]) [address] [place] [address] Protein (U) [Mass/Vol] 30 mg/dL Abnormal Negative [facility] Comment on above: Performed By: #### L [id number] #### [facility] ([facility]) [address] [place] [address] Specific gravity (U) [Rel density] 1.012 Low 1.015-1.020 [facility] Comment on above: Performed By: #### L [id number] #### [facility] (BEAKER) [address] [place] [address] URINALYSIS MICROSCOPICon CASTS IN URINE Normal [facility] Comment on above: Performed By: #### L [id number] ####[facility] (BEAKER)[address] [place] [address] CRYSTALS IN URINE Normal [facility] Comment on above: Performed By: #### L [id number] ####[facility] (BEAKER)[address] [place] [address] MUCUS (#/HPF) IN URINE SEDIMENT Occasional Normal None Seen, Occasional, Few [facility] Comment on above: Performed By: #### L [id number] ####[facility] (BEAKER)[address] [place] [address] RBC (#/HPF) IN URINE SEDIMENT 11-20 Abnormal None Seen [facility] Comment on above: Performed By: #### L [id number] ####[facility] (BEAKER)[address] [place] [address] SQUAMOUS EPITHELIAL CELLS (#/HPF) IN URINE SEDIMENT Occasional Normal None Seen, Occasional [facility] Comment on above: Performed By: #### L [id number] ####[facility] (BEAKER)[address] [place] [address] WBC (LEUKOCYTE) (#/HPF) IN URINE SEDIMENT 51-100 Abnormal None Seen [facility] Comment on above: Performed By: #### L [id number] ####[facility] (BEAKER)[address] [place] [address] 36on 03-30-2023 36 Called and scheduled appointment Normal [facility] 36on 03-29-2023 36 Pt called to reschedule appt for 03/31. Normal [facility] CULTURE URINEon 03-01-2023 CULTURE URINE Isolate [...] F Nitrofurantoin <=16 S F Normal [facility] Comment on above: Performed By: #### KEVAN BERMEO UMICRO #### [facility] [address] [place] [address] Dr. Monserrat Chu ER URINE PROFILEon 3 Bilirubin Ql (U) Negative Normal NEGATIVE [facility] Comment on above: Performed By: #### ABDIRAHMAN BERMEORO #### [facility] [address] [place] [address] Dr. Monserrat Chu Clarity (U) CLEAR Normal CLEAR [facility] Comment on above: Performed By: #### ABDIRAHMAN BERMEORO #### [facility] [address] [place] [address] Dr. Monserrat Chu Color (U) LT. YELLOW Normal YELLOW [facility] Comment on above: Performed By: #### ABDIRAHMAN BERMEORO #### [facility] [address] [place] [address] Dr. Monserrat PROCTOR A micrscopic examination will be performed if indicated. Normal [facility] Comment on above: Performed By: #### ABDIRAHMAN BERMEORO #### [facility] [address] [place] [address] Dr. Monserrat Chu Glucose Ql (U) Negative Normal NEGATIVE [facility] Comment on above: Performed By: #### ABDIRAHMAN BERMEORO #### [facility] [address] [place] [address] Dr. Monserrat Chu Hemoglobin Ql (U) MODERATE Abnormal NEGATIVE [facility] Comment on above: Performed By: #### ABDIRAHMAN BERMEORO #### [facility] [address] [place] [address] Dr. Monserrat Chu Ketones Ql (U) Negative Normal NEGATIVE [facility] Comment on above: Performed By: #### Radha ZUÑIGA UMICRO #### [facility] [address] [place] [address] Dr. Monserrat Chu LEUKOCYTES MODERATE Abnormal NEGATIVE [facility] Comment on above: Performed By: #### Radha ZUÑIGA UMICRO #### [facility] [address] [place] [address] Dr. Monserrat Chu Nitrite Ql (U) Negative Normal NEGATIVE [facility] Comment on above: Performed By: #### Radha ZUÑIGA UMICRO #### [facility] [address] [place] [address] Dr. Monserrat Chu pH (U) 6.5 [pH] Normal 5-9 [facility] Comment on above: Performed By: #### Radha ZUÑIGA UMICRO #### [facility] [address] [place] [address] Dr. Monserrat Chu SPEC GRAVITY 1.015 Normal 1.005-<=1.025 [facility] Comment on above: Performed By: #### Radha ZUÑIGA UMICRO #### [facility] [address] [place] [address] Dr. Monserrat Chu UA PROTEIN TRACE Normal NEGATIVE/ TRACE [facility] Comment on above: Performed By: #### Radha ZUÑIGA UMICRO #### [facility] [address] [place] [address] Dr. Monserrat Chu UR MICRO IND INDICATED Normal [facility] Comment on above: Performed By: #### ABDIRAHMAN BERMEORO #### [facility] [address] [place] [address] Dr. Monserrat Chu Urobilinogen Qn (U) 1.0 {Sanjuana'U}/dL Normal 0.2 - 1. 0 [facility] Comment on above: Performed By: #### Rdaha ZUÑIGA UMICRO #### [facility] [address] [place] [address] Dr. Monserrat Chu URINE MICROSCOPIC ONLYon BACTERIA SMALL Abnormal NONE SEEN [facility] Comment on above: Performed By: #### Radha ZUÑIGA UMICRO #### [facility] [address] [place] [address] Dr. Monserrat Chu Bacteria identified Cx Nom (U) INDICATED Normal [facility] Comment on above: Performed By: #### Radha ZUÑIGA UMICRO #### [facility] [address] [place] [address] Dr. Monserrat Chu CAST NONE SEEN Normal NONE SEEN [facility] Comment on above: Performed By: #### Radha ZUÑIGA UMICRO #### [facility] [address] [place] [address] Dr. Monserrat Chu Crystals LM Nom (Urine sed) NONE SEEN Normal NONE SEEN [facility] Comment on above: Performed By: #### Radha ZUÑIGA UMICRO #### [facility] [address] [place] [address] Dr. Monserrat Chu Epithelial cells LM Ql (Urine sed) MODERATE Abnormal NONE SEEN /RARE [facility] Comment on above: Performed By: #### Radha ZUÑIGA UMICRO #### [facility] [address] [place] [address] Dr. Monserrat Chu MUCOUS TRACE Abnormal NONE SEEN [facility] Comment on above: Performed By: #### Radha ZUÑIGA UMICRO #### [facility] [address] [place] [address] Dr. Monserrat Chu RBC 10-20 Abnormal 0-2 [facility] Comment on above: Performed By: #### ABDIRAHMAN BERMEORO #### [facility] [address] [place] [address] Dr. Monserrat Chu WBC 10-20 Abnormal NONE SEEN [facility] Comment on above: Performed By: #### Radha ZUÑIGA UMICRO #### [facility] [address] [place] [address] Dr. Monserrat Chu CULTURE URINEon 01-28-2023 CULTURE [...] F Tetracycline <=0.25 S F Normal [facility] Comment on above: Performed By: #### E KEVAN ZUÑIGA UMICRO #### [facility] [address] [place] [address] Dr. Monserrat Chu ABO AND RH TYPEon 01-25-2023 ABO and Rh group Nom (Bld) ABO Rh Typing A Rh Positive Normal [facility] Comment on above: Performed By: #### E KEVAN ZUÑIGA UMICRO #### [facility] [address] [place] [address] Dr. Monserrat Chu CBC AUTO DIFFon 01-25-2023 BASO # 0.0 103/ul Normal 0.0-0.1 [facility] Comment on above: Performed By: #### C BC #### [facility] [address] [place] [address] Dr. Monserrat Chu Basophils/100 WBC (Bld) 0.6 % Normal 0.2-2.0 [facility] Comment on above: Performed By: #### C BC #### [facility] [address] [place] [address] Dr. Monserrat Chu EO # 0.1 103/ul Normal 0.0-0.7 [facility] Comment on above: Performed By: #### C BC #### [facility] [address] [place] [address] Dr. Monserrat Chu Eosinophils/100 WBC (Bld) 1.2 % Normal 0.9-7.0 [facility] Comment on above: Performed By: #### C BC #### [facility] [address] [place] [address] Dr. Monserrat Chu Erythrocyte distribution width (RBC) [Ratio] 12.4 % Normal 11.0-15.0 [facility] Comment on above: Performed By: #### C BC #### [facility] [address] [place] [address] Dr. Monserrat Chu Hematocrit (Bld) [Volume fraction] 41.5 % Normal 36.0-48.0 [facility] Comment on above: Performed By: #### C BC #### [facility] [address] [place] [address] Dr. Monserrat Chu Hemoglobin (Bld) [Mass/Vol] 13.5 g/dL Normal 12.0-16.0 [facility] Comment on above: Performed By: #### C BC #### [facility] [address] [place] [address] Dr. Monserrat Chu IG # 0.02 10e3/ul Normal 0.00-0.03 [facility] Comment on above: Performed By: #### C BC #### [facility] [address] [place] [address] Dr. Monserrat Chu IG % 0.3 % Normal 0.0-0.5 [facility] Comment on above: Performed By: #### C BC #### [facility] [address] [place] [address] Dr. Monserrat Chu LYMPH # 1.6 103/ul Normal 1.2-3.8 [facility] Comment on above: Performed By: #### C BC #### [facility] [address] [place] [address] Dr. Monserrat Chu Lymphocytes/100 WBC (Bld) 23.5 % Normal 20.5-60.0 [facility] Comment on above: Performed By: #### C BC #### [facility] [address] [place] [address] Dr. Monserrat Chu MANUAL DIFF REQ NO Normal [facility] Comment on above: Performed By: #### C BC #### [facility] [address] [place] [address] Dr. Monserrat Chu MCH (RBC) [Entitic mass] 29.5 pg Normal 26.7-34.0 [facility] Comment on above: Performed By: #### C BC #### [facility] [address] [place] [address] Dr. Monserrat Chu MCHC (RBC) [Mass/Vol] 32.5 g/dL Normal 29.9-35.2 [facility] Comment on above: Performed By: #### C BC #### [facility] [address] [place] [address] Dr. Monserrat Chu MCV (RBC) [Entitic vol] 90.6 fL Normal 81.0-99.0 [facility] Comment on above: Performed By: #### C BC #### [facility] [address] [place] [address] Dr. Monserrat Chu MONO # 0.4 103/ul Normal 0.3-0.8 [facility] Comment on above: Performed By: #### C BC #### [facility] [address] [place] [address] Dr. Monserrat Chu Monocytes/100 WBC (Bld) 5.5 % Normal 1.7-12.0 [facility] Comment on above: Performed By: #### C BC #### [facility] [address] [place] [address] Dr. Monserrat Chu NEUT # 4.5 103/ul Normal 1.4-6.5 [facility] Comment on above: Performed By: #### C BC #### [facility] [address] [place] [address] Dr. Monserrat Chu Neutrophils/100 WBC (Bld) 68.9 % Normal 43.0-75.0 [facility] Comment on above: Performed By: #### C BC #### [facility] [address] [place] [address] Dr. Monserrat Chu Platelet mean volume (Bld) [Entitic vol] 9.2 fL Critically low 9.5-13.5 [facility] Comment on above: Performed By: #### C BC #### [facility] [address] [place] [address] Dr. Monserrat Chu PLT 264 103/ul Normal 150-450 [facility] Comment on above: Performed By: #### C BC #### [facility] [address] [place] [address] Dr. Monserrat Chu RBC 4.58 106/ul Normal 4.20-5.40 [facility] Comment on above: Performed By: #### C BC #### [facility] [address] [address] [address] Monserrat Chu WBC 6.6 103/ul Normal 4.0-11.0 [facility] Comment on above: Performed By: #### C BC #### [facility] [address] [address] [address] Monserrat Chu ER URINE PROFILEon 3 Bilirubin Ql (U) Negative Normal NEGATIVE [facility] Comment on above: Performed By: #### E RUR, PREGU, UMICRO #### [facility] [address] [address] [address] Monserrat Chu Clarity (U) CLEAR Normal CLEAR [facility] Comment on above: Performed By: #### E RUR, PREGU, UMICRO #### [facility] [address] [place] [address] Dr. Monserrat Chu Color (U) LT. YELLOW Normal YELLOW [facility] Comment on above: Performed By: #### E RUR, PREGU, UMICRO #### [facility] [address] [address] [address] Monserrat PROCTOR A micrscopic examination will be performed if indicated. Normal [facility] Comment on above: Performed By: #### E RUR, PREGU, UMICRO #### [facility] [address] [address] [address] Monserrat Chu Glucose Ql (U) Negative Normal NEGATIVE [facility] Comment on above: Performed By: #### E RUR, PREGU, UMICRO #### [facility] [address] [address] [address] Monserrat Chu Hemoglobin Ql (U) SMALL Abnormal NEGATIVE [facility] Comment on above: Performed By: #### E RUR, PREGU, UMICRO #### [facility] [address] [address] [address] Monserrat Chu Ketones Ql (U) Negative Normal NEGATIVE [facility] Comment on above: Performed By: #### E RUR, PREGU, UMICRO #### [facility] [address] [place] [address] Dr. Monserrat Chu LEUKOCYTES MODERATE Abnormal NEGATIVE [facility] Comment on above: Performed By: #### KEVAN BERMEO UMICRO #### [facility] [address] [place] [address] Dr. Monserrat Chu Nitrite Ql (U) Positive Abnormal NEGATIVE [facility] Comment on above: Performed By: #### KEVAN BERMEO UMICRO #### [facility] [address] [place] [address] Dr. Monserrat Chu pH (U) 8.0 [pH] Normal 5-9 [facility] Comment on above: Performed By: #### KEVAN BERMEO UMICRO #### [facility] [address] [place] [address] Dr. Monserrat Chu Protein (U) [Mass/Vol] 30 mg/dL Abnormal NEGATIVE/ TRACE [facility] Comment on above: Performed By: #### KEVAN BERMEO UMICRO #### [facility] [address] [place] [address] Dr. Monserrat Chu SPEC GRAVITY 1.015 Normal 1.005-<=1.025 [facility] Comment on above: Performed By: #### KEVAN BERMEO UMICRO #### [facility] [address] [place] [address] Dr. Monserrat Chu UR MICRO IND INDICATED Normal [facility] Comment on above: Performed By: #### KEVAN BERMEO UMICRO #### [facility] [address] [place] [address] Dr. Monserrat Chu Urobilinogen Qn (U) 0.2 {Sanjuana'U}/dL Normal 0.2 - 1. 0 [facility] Comment on above: Performed By: #### KEVAN BERMEO UMICRO #### [facility] [address] [place] [address] Dr. Monserrat Chu LIPASEon 01-25-2023 Lipase [Catalytic activity/Vol] 96.0 U/L Normal 73.0-393.0 [facility] Comment on above: Performed By: #### KEVAN BERMEO UMICRO #### [facility] [address] [place] [address] Dr. Monserrat Chu PREG QUANT HCGon 01-25-2023 HCG QUANT <1 Normal [facility] Comment on above: Performed By: #### P REGQNT #### [facility] [address] [place] [address] Dr. Monserrat Chu HCG RANGE SEE BELOW Normal [facility] Comment on above: Result Comment: 5-50 0.2-1 WEEK 50-500 1-2 WEEKS 100-5,000 2-3 WEEKS 500-10,000 3-4 WEEKS 1,000-50,000 4-5 WEEKS 10,000-100,000 5-6 WEEKS 15,000-200,000 6-8 WEEKS 10,000-100,000 2-3 MONTHS Performed By: #### P REGQNT #### [facility] [address] [place] [address] Dr. Monserrat Chu PROF 14(COMP METB)on 023 Albumin [Mass/Vol] 4.0 g/dL Normal 3.4-5.0 [facility] Comment on above: Performed By: #### KEVAN BERMEO UMICRO #### [facility] [address] [place] [address] Dr. Monserrat Chu Albumin/Globulin [Mass ratio] 1.2 {ratio} Normal [facility] Comment on above: Performed By: #### KEVAN BERMEO UMICRO #### [facility] [address] [place] [address] Dr. Monserrat Chu ALP [Catalytic activity/Vol] 111 U/L Normal 46-116 [facility] Comment on above: Performed By: #### KEVAN BERMEO UMICRO #### [facility] [address] [place] [address] Dr. Monserrat Chu ALT [Catalytic activity/Vol] 21 U/L Normal 14-59 [facility] Comment on above: Performed By: #### E RUR, PREGU, UMICRO #### [facility] [address] [place] [address] Dr. Monserrat Chu Anion gap [Moles/Vol] 12.9 mmol/L Normal [facility] Comment on above: Performed By: #### E RUR, PREGU, UMICRO #### [facility] [address] [place] [address] Dr. Monserrat Chu AST [Catalytic activity/Vol] 15 U/L Normal 15-37 [facility] Comment on above: Performed By: #### E RUR, PREGU, UMICRO #### [facility] [address] [place] [address] Dr. Monserrat Chu Bilirubin [Mass/Vol] 0.3 mg/dL Normal 0.2-1.0 [facility] Comment on above: Performed By: #### E RUR PREGU, UMICRO #### [facility] [address] [place] [address] Dr. Monserrat Chu Calcium [Mass/Vol] 9.6 mg/dL Normal 8.5-10.1 [facility] Comment on above: Performed By: #### E RUR PREGU, UMICRO #### [facility] [address] [place] [address] Dr. Monserrat Chu Chloride [Moles/Vol] 108 mmol/L Critically high 98-107 [facility] Comment on above: Performed By: #### E RUR PREGU, UMICRO #### [facility] [address] [place] [address] Dr. Monserrat Chu CO2 [Moles/Vol] 27.6 mmol/L Normal 21.0-32.0 [facility] Comment on above: Performed By: #### E RUR, PREGU, UMICRO #### [facility] [address] [place] [address] Dr. Monserrat Chu Creatinine [Mass/Vol] 1.06 mg/dL Critically high 0.55-1.02 [facility] Comment on above: Performed By: #### E RUR, PREGU, UMICRO #### [facility] [address] [address] [address] Monserrat Chu EGFR-AF SURINAMESE >60 Normal >=60 [facility] Comment on above: Performed By: #### KEVAN BERMEO UMICRO #### [facility] [address] [address] [address] Monserrat Chu EGFR-NON AF SURINAMESE >60 Normal >=60 [facility] Comment on above: Performed By: #### KEVAN BERMEO UMICRO #### [facility] [address] [address] [address] Monserrat Chu Globulin (S) [Mass/Vol] 3.3 g/dL Normal [facility] Comment on above: Performed By: #### KEVAN BERMEO UMICRO #### [facility] [address] [address] [address] Monserrat Chu Glucose [Mass/Vol] 96 mg/dL Normal 74-106 [facility] Comment on above: Performed By: #### KEVAN BERMEO UMICRO #### [facility] [address] [address] [address] Monserrat Chu Potassium [Moles/Vol] 4.5 mmol/L Normal 3.5-5.1 [facility] Comment on above: Performed By: #### KEVAN BERMEO UMICRO #### [facility] [address] [place] [address] Dr. Monserrat Chu Protein [Mass/Vol] 7.3 g/dL Normal 6.4-8.2 [facility] Comment on above: Performed By: #### KEVAN BERMEO UMICRO #### [facility] [address] [address] [address] Monserrat Chu Sodium [Moles/Vol] 144 mmol/L Normal 136-145 [facility] Comment on above: Performed By: #### KEVAN BERMEO UMICRO #### [facility] [address] [address] [address] Monserrat Chu Urea nitrogen [Mass/Vol] 18.0 mg/dL Normal 7.0-18.0 [facility] Comment on above: Performed By: #### E RUR, PREGU, UMICRO #### [facility] [address] [place] [address] Dr. Monserrat Chu Urea nitrogen/Creatinine [Mass ratio] 17.0 mg/mg Normal [facility] Comment on above: Performed By: #### E RUR, PREGU, UMICRO #### [facility] [address] [place] [address] Dr. Monserrat Chu URINE MICROSCOPIC ONLYon BACTERIA SMALL Abnormal NONE SEEN [facility] Comment on above: Performed By: #### E RUR, PREGU, UMICRO #### [facility] [address] [place] [address] Dr. Monserrat Chu Bacteria identified Cx Nom (U) INDICATED Normal [facility] Comment on above: Performed By: #### E RUR, PREGU, UMICRO #### [facility] [address] [place] [address] Dr. Monserrat Chu CAST NONE SEEN Normal NONE SEEN [facility] Comment on above: Performed By: #### E RUR, PREGU, UMICRO #### [facility] [address] [place] [address] Dr. Monserrat Chu Crystals LM Nom (Urine sed) SEEN Abnormal NONE SEEN [facility] Comment on above: Performed By: #### E RUR, PREGU, UMICRO #### [facility] [address] [place] [address] Dr. Monserrat Chu Epithelial cells LM Ql (Urine sed) NONE SEEN Normal NONE SEEN /RARE [facility] Comment on above: Performed By: #### E RUR, PREGU, UMICRO #### [facility] [address] [place] [address] Dr. Monserrat Chu MUCOUS NONE SEEN Normal NONE SEEN [facility] Comment on above: Performed By: #### E RUR, PREGU, UMICRO #### [facility] [address] [place] [address] Dr. Monserrat Chu RBC 5-10 Abnormal 0-2 [facility] Comment on above: Performed By: #### E RURKEVAN UMICRO #### [facility] [address], [place] [address] Dr. Monserrat Chu TRIPLE PHOS CRYSTALS RARE Normal [facility] Comment on above: Performed By: #### E KEVAN ZUÑIGA UMICRO #### [facility] [address], [place] [address] Dr. Monserrat Chu WBC 20-50 Abnormal NONE SEEN [facility] Comment on above: Performed By: #### E ROSIERKEVAN, UMICRO #### [facility] [address], [place] [address] Dr. Monserrat Chu XR FINGER MIN 2 [...] JOSE PADILLA Date: 2023-01-14 21:21 Normal [facility] CULTURE URINEon 01-05-2023 CULTURE URINE Isolate [...] F Tetracycline <=0.25 S F Normal [facility] Comment on above: Performed By: #### KEVAN BERMEO UMICRO #### [facility] [address] [place] [address] Dr. Monserrat Chu AMYLASEon 01-03-2023 Amylase [Catalytic activity/Vol] 56 U/L Normal 25-115 [facility] Comment on above: Performed By: #### A MY, LIPA, CMP #### [facility] [address] [place] [address] Dr. Monserrat Chu CBC AUTO DIFFon 01-03-2023 BASO # 0.1 103/ul Normal 0.0-0.1 [facility] Comment on above: Performed By: #### KEVAN BERMEO UMICRO #### [facility] [address] [place] [address] Dr. Monserrat Chu Basophils/100 WBC (Bld) 0.9 % Normal 0.2-2.0 [facility] Comment on above: Performed By: #### KEVAN BERMEO UMICRO #### [facility] [address] [place] [address] Dr. Monserrat Chu EO # 0.6 103/ul Normal 0.0-0.7 [facility] Comment on above: Performed By: #### KEVAN BERMEO UMICRO #### [facility] [address] [place] [address] Dr. Monserrat Chu Eosinophils/100 WBC (Bld) 7.1 % Critically high 0.9-7.0 [facility] Comment on above: Performed By: #### KEVAN BERMEO UMICRO #### [facility] [address] [place] [address] Dr. Monserrat Chu Erythrocyte distribution width (RBC) [Ratio] 12.6 % Normal 11.0-15.0 [facility] Comment on above: Performed By: #### RAFAEL BERMEOU UMICRO #### [facility] [address] [place] [address] Dr. Monserrat Chu Hematocrit (Bld) [Volume fraction] 40.7 % Normal 36.0-48.0 [facility] Comment on above: Performed By: #### KEVAN BERMEO UMICRO #### [facility] [address] [place] [address] Dr. Monserrat Chu Hemoglobin (Bld) [Mass/Vol] 13.5 g/dL Normal 12.0-16.0 [facility] Comment on above: Performed By: #### KEVAN BERMEO UMICRO #### [facility] [address] [place] [address] Dr. Monserrat Chu IG # 0.02 10e3/ul Normal 0.00-0.03 [facility] Comment on above: Performed By: #### KEVAN BERMEO UMICRO #### [facility] [address] [place] [address] Dr. Monserrat Chu IG % 0.2 % Normal 0.0-0.5 [facility] Comment on above: Performed By: #### KEVAN BERMEO UMICRO #### [facility] [address] [place] [address] Dr. Monserrat Chu LYMPH # 2.5 103/ul Normal 1.2-3.8 [facility] Comment on above: Performed By: #### KEVAN BERMEO UMICRO #### [facility] [address] [place] [address] Dr. Monserrat Chu Lymphocytes/100 WBC (Bld) 28.1 % Normal 20.5-60.0 [facility] Comment on above: Performed By: #### KEVAN BERMEO UMICRO #### [facility] [address] [place] [address] Dr. Monserrat Chu MANUAL DIFF REQ NO Normal [facility] Comment on above: Performed By: #### KEVAN BERMEO UMICRO #### [facility] [address] [place] [address] Dr. Monserrat Chu MCH (RBC) [Entitic mass] 29.5 pg Normal 26.7-34.0 [facility] Comment on above: Performed By: #### KEVAN BERMEO UMICRO #### [facility] [address] [place] [address] Dr. Monserrat Chu MCHC (RBC) [Mass/Vol] 33.2 g/dL Normal 29.9-35.2 [facility] Comment on above: Performed By: #### KEVAN BERMEO UMICRO #### [facility] [address] [place] [address] Dr. Monserrat Chu MCV (RBC) [Entitic vol] 89.1 fL Normal 81.0-99.0 [facility] Comment on above: Performed By: #### KEVAN BERMEO UMICRO #### [facility] [address] [place] [address] Dr. Monserrat Chu MONO # 0.6 103/ul Normal 0.3-0.8 [facility] Comment on above: Performed By: #### KEVAN BERMEO UMICRO #### [facility] [address] [place] [address] Dr. Monserrat Chu Monocytes/100 WBC (Bld) 6.4 % Normal 1.7-12.0 [facility] Comment on above: Performed By: #### KEVAN BERMEO UMICRO #### [facility] [address] [place] [address] Dr. Monserrat Chu NEUT # 5.0 103/ul Normal 1.4-6.5 [facility] Comment on above: Performed By: #### KEVAN BERMEO UMICRO #### [facility] [address] [place] [address] Dr. Monserrat Chu Neutrophils/100 WBC (Bld) 57.3 % Normal 43.0-75.0 [facility] Comment on above: Performed By: #### KEVAN BERMEO UMICRO #### [facility] [address] [place] [address] Dr. Monserrat Chu Platelet mean volume (Bld) [Entitic vol] 9.1 fL Critically low 9.5-13.5 [facility] Comment on above: Performed By: #### E RUR PREGU, UMICRO #### [facility] [address], [place] [address] Dr. Monserrat Chu PLT 269 103/ul Normal 150-450 [facility] Comment on above: Performed By: #### E RUR, PREGU, UMICRO #### [facility] [address], [place] [address] Dr. Monserrat Chu RBC 4.57 106/ul Normal 4.20-5.40 [facility] Comment on above: Performed By: #### E RUR PREGU, UMICRO #### [facility] [address] [place], [place] [address] Dr. Monserrat Chu WBC 8.8 103/ul Normal 4.0-11.0 [facility] Comment on above: Performed By: #### E RUR PREGU, UMICRO #### [facility] [address] [address] [address] ABD/PELV W CONon 01-04-[address] ABD/PELV W CON EXAMINATION: CT ABD/PELV [...] GAYATHRI WANG Date: 2023-01-03 03:16 Normal [facility] ER URINE PROFILEon 3 Bilirubin Ql (U) Negative Normal NEGATIVE [facility] Comment on above: Performed By: #### E KEVAN ZUÑIGA UMICRO #### [facility] [address] [place] [address] Dr. Monserrat Chu Clarity (U) CLEAR Normal CLEAR [facility] Comment on above: Performed By: #### E KEVAN ZUÑIGA UMICRO #### [facility] [address] [address] [address] Monserrat Chu Color (U) LT. YELLOW Normal YELLOW [facility] Comment on above: Performed By: #### E RUR PREGU, UMICRO #### [facility] [address] [address] [address] Monserrat PROCTOR A micrscopic examination will be performed if indicated. Normal [facility] Comment on above: Performed By: #### Radha RUR PREGU, UMICRO #### [facility] [address] [address] [address] Monserrat Chu Glucose Ql (U) Negative Normal NEGATIVE [facility] Comment on above: Performed By: #### Radha RUR PREGU, UMICRO #### [facility] [address] [address] [address] Monserrat Chu Hemoglobin Ql (U) MODERATE Abnormal NEGATIVE [facility] Comment on above: Performed By: #### Radha RUR PREGU, UMICRO #### [facility] [address] [address] [address] Monserrat Chu Ketones Ql (U) Negative Normal NEGATIVE [facility] Comment on above: Performed By: #### Radha RUDavon PREGU, UMICRO #### [facility] [address] [address] [address] Monserrat Chu LEUKOCYTES SMALL Abnormal NEGATIVE [facility] Comment on above: Performed By: #### Radha RUR PREGU, UMICRO #### [facility] [address] [address] [address] Monserrat Chu Nitrite Ql (U) Positive Abnormal NEGATIVE [facility] Comment on above: Performed By: #### E RUR PREGU, UMICRO #### [facility] [address] [address] [address] Monserrat Chu pH (U) 8.5 [pH] Normal 5-9 [facility] Comment on above: Performed By: #### E RUR, PREGU, UMICRO #### [facility] [address] [address] [address] Monserrat Chu Protein (U) [Mass/Vol] 100 mg/dL Abnormal NEGATIVE/ TRACE [facility] Comment on above: Performed By: #### KEVAN BERMEO UMICRO #### [facility] [address] [place] [address] Dr. Monserrat Chu SPEC GRAVITY 1.010 Normal 1.005-<=1.025 [facility] Comment on above: Performed By: #### KEVAN BERMEO UMICRO #### [facility] [address] [place] [address] Dr. Monserrat Chu UR MICRO IND INDICATED Normal [facility] Comment on above: Performed By: #### KEVAN BERMEO UMICRO #### [facility] [address] [place] [address] Dr. Monserrat Chu Urobilinogen Qn (U) 0.2 {Sanjuana'U}/dL Normal 0.2 - 1. 0 [facility] Comment on above: Performed By: #### Radha ZUÑIGA PREGU, UMICRO #### [facility] [address] [place] [address] Dr. Monserrat Chu LACTATE/LACTIC ACIDon 2022 Lactate [Moles/Vol] 0.8 mmol/L Normal 0.4-2.0 [facility] Comment on above: Performed By: #### KEVAN BERMEO UMICRO #### [facility] [address] [place] [address] Dr. Monserrat Chu LIPASEon 01-03-2023 Lipase [Catalytic activity/Vol] 101.0 U/L Normal 73.0-393.0 [facility] Comment on above: Performed By: #### A MY, LIPA, CMP #### [facility] [address] [place] [address] Dr. Monserrat Chu URon 01-03-2023 , QUAL Negative Normal NEGATIVE [facility] Comment on above: Performed By: #### E RUDavon PREGU, UMICRO #### [facility] [address] [place] [address] Dr. Monserrat Chu PROF 14(COMP METB)on 023 Albumin [Mass/Vol] 4.0 g/dL Normal 3.4-5.0 [facility] Comment on above: Performed By: #### A ANTWON LIPA, CMP #### [facility] [address] [address] [address] Monserrat Chu Albumin/Globulin [Mass ratio] 1.3 {ratio} Normal [facility] Comment on above: Performed By: #### A ANTWON LIPA, CMP #### [facility] [address] [address] [address] Monserrat Chu ALP [Catalytic activity/Vol] 114 U/L Normal 46-116 [facility] Comment on above: Performed By: #### A ANTWON LIPA, CMP #### [facility] [address] [place] [address] Dr. Monserrat Chu ALT [Catalytic activity/Vol] 17 U/L Normal 14-59 [facility] Comment on above: Performed By: #### A ANTWON LIPA, CMP #### [facility] [address] [address] [address] Monserrat Chu Anion gap [Moles/Vol] 11.3 mmol/L Normal [facility] [place] Comment on above: Performed By: #### A ANTWON LIPA, CMP #### [facility] [address] [place] [address] Dr. Monserrat Chu AST [Catalytic activity/Vol] 18 U/L Normal 15-37 [facility] Comment on above: Performed By: #### A ANTWON LIPA, CMP #### [facility] [address] [address] [address] Monserrat Chu Bilirubin [Mass/Vol] 0.2 mg/dL Normal 0.2-1.0 [facility] Comment on above: Performed By: #### A ANTWON LIPA, CMP #### [facility] [address] [address] [address] Monserrat Chu Calcium [Mass/Vol] 8.9 mg/dL Normal 8.5-10.1 [facility] Comment on above: Performed By: #### A MY, LIPA, CMP #### [facility] [address] [address] [address] Monserrat Chu Chloride [Moles/Vol] 105 mmol/L Normal 98-107 [facility] Comment on above: Performed By: #### A MY, LIPA, CMP #### [facility] [address] [address] [address] Monserrat Chu CO2 [Moles/Vol] 27.0 mmol/L Normal 21.0-32.0 [facility] Comment on above: Performed By: #### A MY, LIPA, CMP #### [facility] [address] [address] [address] Monserrat Chu Creatinine [Mass/Vol] 1.07 mg/dL Critically high 0.55-1.02 [facility] Comment on above: Performed By: #### A MY, LIPA, CMP #### [facility] [address] [place] [address] Dr. Monserrat Chu EGFR-AF SURINAMESE >60 Normal >=60 [facility] Comment on above: Performed By: #### A MY, LIPA, CMP #### [facility] [address] [place] [address] Dr. Monserrat Chu EGFR-NON AF SURINAMESE >60 Normal >=60 [facility] Comment on above: Performed By: #### A MY, LIPA, CMP #### [facility] [address] [address] [address] Monserrat Chu Globulin (S) [Mass/Vol] 3.2 g/dL Normal [facility] Comment on above: Performed By: #### A MY, LIPA, CMP #### [facility] [address] [place] [address] Dr. Monserrat Chu Glucose [Mass/Vol] 103 mg/dL Normal 74-106 [facility] Comment on above: Performed By: #### A MY, LIPA, CMP #### [facility] [address] [place] [address] Dr. Monserrat Chu Potassium [Moles/Vol] 4.3 mmol/L Normal 3.5-5.1 [facility] Comment on above: Performed By: #### A MARY KAPOOR, CMP #### [facility] [address] [place] [address] Dr. Monserrat Chu Protein [Mass/Vol] 7.2 g/dL Normal 6.4-8.2 [facility] Comment on above: Performed By: #### A ANTWON LIPA, CMP #### [facility] [address] [place] [address] Dr. Monserrat Chu Sodium [Moles/Vol] 139 mmol/L Normal 136-145 [facility] Comment on above: Performed By: #### A MARY KAPOOR, CMP #### [facility] [address] [place] [address] Dr. Monserrat Chu Urea nitrogen [Mass/Vol] 19.0 mg/dL Critically high 7.0-18.0 [facility] Comment on above: Performed By: #### A MARY KAPOOR, CMP #### [facility] [address] [place] [address] Dr. Monserrat Chu Urea nitrogen/Creatinine [Mass ratio] 17.8 mg/mg Normal [facility] Comment on above: Performed By: #### A MARY KAPOOR, CMP #### [facility] [address] [place] [address] Dr. Monserrat Chu URINE MICROSCOPIC ONLYon BACTERIA TRACE Abnormal NONE SEEN [facility] Comment on above: Performed By: #### KEVAN BERMOE UMICRO #### [facility] [address] [place] [address] Dr. Monserrat Chu Bacteria identified Cx Nom (U) INDICATED Normal [facility] Comment on above: Performed By: #### KEVAN BERMEO UMICRO #### [facility] [address] [place] [address] Dr. Monserrat Chu CAST NONE SEEN Normal NONE SEEN [facility] Comment on above: Performed By: #### E RUR PREGU UMICRO #### [facility] [address] [place] [address] Dr. Monserrat Chu Crystals LM Nom (Urine sed) NONE SEEN Normal NONE SEEN [facility] Comment on above: Performed By: #### E RUR, PREGU, UMICRO #### [facility] [address] [place] [address] Dr. Monserrat Chu Epithelial cells LM Ql (Urine sed) FEW Abnormal NONE SEEN /RARE [facility] Comment on above: Performed By: #### E RUR, PREGU, UMICRO #### [facility] [address] [place] [address] Dr. Monserrat Chu MUCOUS NONE SEEN Normal NONE SEEN [facility] Comment on above: Performed By: #### E RUR, PREGU, UMICRO #### [facility] [address] [place] [address] Dr. Monserrat Chu RBC 2-5 Abnormal 0-2 [facility] Comment on above: Performed By: #### E RUR, PREGU, UMICRO #### [facility] [address] [place] [address] Dr. Monserrat Chu TRIPLE PHOS CRYSTALS FEW Normal [facility] Comment on above: Performed By: #### E RUR, PREGU, UMICRO #### [facility] [address] [address] [address] Monserrat Chu WBC 20-50 Abnormal NONE SEEN [facility] Comment on above: Performed By: #### E RUR, PREGU, UMICRO #### [facility] [address] [place] [address] Dr. Monserrat Chu Cult,Urineon 06-07-2022 Cult,Urine Specimen Description .CLEAN CATCH URINE Culture NO SIGNIFICANT GROWTH Report Status FINAL 06/07/2022 Normal [facility] Comment on above: Performed By: #### L IP, BHCG, CDP, PT, LIVP, BMP #### [facility] [address] [place] [address] Print Line Operator: Rashad Mckinney DO Basic Metabolic Panelon - Anion gap [Moles/Vol] 12 mmol/L 9 - 17 mmol/L [facility] Calcium [Mass/Vol] 10.1 mg/dL 8.6 - 10. 4 mg/dL [facility] Chloride [Moles/Vol] 103 mmol/L 98 - 107 mmol/L [facility] [employer] CO2 [Moles/Vol] 26 mmol/L 20 - 31 mmol/L [facility] Creatinine [Mass/Vol] 1.09 mg/dL High 0.5 - 0.9 mg/d L [facility] GFR Non- Pediatric GFR requires additional information. Refer to NKDEP website for calculator. 60 - PINF mL/min [facility] GFR/1.73 sq M.predicted MDRD (S/P/Bld) [Vol rate/Area] [facility] Comment on above: Average GFR for <20 years old not available. Chronic Kidney Disease: <60 mL/min/1.73sq m Kidney failure: <15 mL/min/1.73sq m eGFR calculated using average adult body mass. Additional eGFR calculator available at: http://www.[employer]/myEnergyPlatform.com_crcl_2011.htm Glucose [Mass/Vol] 86 mg/dL 70 - 99 mg/dL [facility] Potassium [Moles/Vol] 4.2 mmol/L 3.7 - 5.3 mmol/L [facility] Sodium [Moles/Vol] 141 mmol/L 135 - 144 mmol/L [facility] Urea nitrogen (BldV) [Mass/Vol] 22 mg/dL High 6 - 20 mg/dL [facility] Basic Metabolic Profon 06-06 (cont.) Normal [facility] Comment on above: Result Comment: Aver age GFR for <20 years old not available. Chronic Kidney Disease: <60 mL/min/1.73sq m Kidney failure: <15 mL/min/1.73sq m eGFR calculated using average adult body mass. Additional eGFR calculator available at: http://www.[employer]/multiple_crcl_2012.htm Performed By: #### L IP, BHCG, CDP, PT, LIVP, BMP #### [facility] [address] [place] [id number] Print Line Operator: Rashad Mckinney DO Anion gap [Moles/Vol] 12 mmol/L Normal 9-17 [facility] Comment on above: Performed By: #### L IP, BHCG, CDP, PT, LIVP, BMP #### [facility] [address] [place] [address] Print Line Operator: Rashad Mckinney DO Calcium [Mass/Vol] 10.1 mg/dL Normal 8.6-10.4 [facility] Comment on above: Performed By: #### L IP, BHCG, CDP, PT, LIVP, BMP #### [facility] [address] [place] [address] Print Line Operator: Rashad Mckinney DO Chloride [Moles/Vol] 103 mmol/L Normal 98-107 [facility] Comment on above: Performed By: #### L IP, BHCG, CDP, PT, LIVP, BMP #### [facility] [address] [place] [address] Print Line Operator: Rashad Mckinney DO CO2 [Moles/Vol] 26 mmol/L Normal 20-31 [facility] Comment on above: Performed By: #### L IP, BHCG, CDP, PT, LIVP, BMP #### [facility] [address] [place] [address] Print Line Operator: Rashad Mckinney DO Creatinine [Mass/Vol] 1.09 mg/dL High 0.50-0.90 [facility] Comment on above: Performed By: #### L IP, BHCG, CDP, PT, LIVP, BMP #### [facility] [address] [place] [address] Print Line Operator: Rashad Mckinney DO GFR,non Amer Pediatric GFR requi res additional information. Refer to NKDEP website for Normal >60 [facility] Comment on above: Result Comment: calc ulator. Performed By: #### L IP, BHCG, CDP, PT, LIVP, BMP #### [facility] [address] [place] [address] Print Line Operator: Rashad Mckinney DO Glucose [Mass/Vol] 86 mg/dL Normal 70-99 [facility] Comment on above: Performed By: #### L IP, BHCG, CDP, PT, LIVP, BMP #### [facility] [address] [place] [address] Print Line Operator: Rashad Mckinney DO Potassium [Moles/Vol] 4.2 mmol/L Normal 3.7-5.3 [facility] Comment on above: Performed By: #### L IP, BHCG, CDP, PT, LIVP, BMP #### [facility] [address] [facility] [place] [address] Print Line Operator: Rashad Mckinney DO Sodium [Moles/Vol] 141 mmol/L Normal 135-144 [facility] Comment on above: Performed By: #### L IP, BHCG, CDP, PT, LIVP, BMP #### [facility] [address] [place] [address] Print Line Operator: Rashad Mckinney DO Urea nitrogen [Mass/Vol] 22 mg/dL High 6-20 [facility] Comment on above: Performed By: #### L IP, BHCG, CDP, PT, LIVP, BMP #### [facility] [address] [place] [address] Print Line Operator: Rashad Mckinney DO CBC with Auto Differentialon 06-06-2022 Absolute Eos # 0.10 [facility] Absolute Lymph # 2.10 [facility] Absolute [place] # 0.40 [facility] Basophils (Bld) [#/Vol] 0.00 10*3/uL [facility] Basophils/100 WBC (Bld) 1 % 0 - 2 % [facility] Eosinophils/100 WBC (Bld) 2 % 0 - 4 % [facility] Hematocrit (Bld) [Volume fraction] 41.3 % 36 - 46 % [facility] Hemoglobin (Bld) [Mass/Vol] 13.8 g/dL 12 - 16 g/dL [facility] Lymphocytes/100 WBC (Bld) 30 % 25 - 45 % [facility] MCH (RBC) [Entitic mass] 29.9 pg 26 - 34 pg [facility] MCHC (RBC) [Mass/Vol] 33.3 g/dL 31 - 37 g/dL [facility] MCV (RBC) [Entitic vol] 89.6 fL 80 - 100 fL [facility] Monocytes/100 WBC (Bld) 6 % 2 - 8 % [facility] Platelet distribution width (Bld) [Ratio] 13.0 % 11.5 - 14.9 % [facility] Platelet mean volume (Bld) [Entitic vol] 7.2 fL 6 - 12 fL [facility] Platelets (Bld) [#/Vol] 272 10*3/uL [facility] RBC (Bld) [#/Vol] 4.61 10*6/uL 4 - 5.2 m/uL [facility] Segmented neutrophils/100 WBC (Bld) 61 % 34 - 64 % [facility] Segs Absolute 4.40 [facility] WBC (Bld) [#/Vol] 7.0 10*3/uL [facility] CBC with Diffon 06-06-2022 Abs. Basophil 0.00 k/uL Normal 0.0-0.2 [facility] Comment on above: Performed By: #### L IP, BHCG, CDP, PT, LIVP, BMP #### [facility] [address] [place] [address] Print Line Operator: Rashad Mckinney DO Abs.Neutrophil (Seg) 4.40 k/uL Normal 1.3-9.1 [facility] Comment on above: Performed By: #### L IP, BHCG, CDP, PT, LIVP, BMP #### [facility] [address] [place] [address] Print Line Operator: Rashad Mckinney DO Basophils/100 WBC (Bld) 1 % Normal 0-2 [facility] Comment on above: Performed By: #### L IP, BHCG, CDP, PT, LIVP, BMP #### [facility] [address] [facility] [place] [address] Print Line Operator: Rashad Mckinney DO Eosinophils (Bld) [#/Vol] 0.10 10*3/uL Normal 0.0-0.4 [facility] Comment on above: Performed By: #### L IP, BHCG, CDP, PT, LIVP, BMP #### [facility] [address] [facility] [place] [address] Print Line Operator: Rashad Mckinney DO Eosinophils/100 WBC (Bld) 2 % Normal 0-4 [facility] Comment on above: Performed By: #### L IP, BHCG, CDP, PT, LIVP, BMP #### [facility] [facility] [place] [address] Print Line Operator: Rashad Mckinney DO Erythrocyte distribution width (RBC) [Ratio] 13.0 % Normal 11.5-14.9 [facility] Comment on above: Performed By: #### L IP, BHCG, CDP, PT, LIVP, BMP #### [facility] [place] [address] Print Line Operator: Rashad Mckinney DO Hematocrit (Bld) [Volume fraction] 41.3 % Normal 36-46 [facility] Comment on above: Performed By: #### L IP, BHCG, CDP, PT, LIVP, BMP #### [facility] [address] [place] [address] Print Line Operator: Rashad Mckinney DO Hemoglobin (Bld) [Mass/Vol] 13.8 g/dL Normal 12.0-16.0 [facility] Comment on above: Performed By: #### L IP, BHCG, CDP, PT, LIVP, BMP #### [facility] [address] [place] [address] Print Line Operator: Rashad Mckinney DO Lymphocytes (Bld) [#/Vol] 2.10 10*3/uL Normal 1.2-5.2 [facility] Comment on above: Performed By: #### L IP, BHCG, CDP, PT, LIVP, BMP #### [facility] [place] [address] Print Line Operator: Rashad Mckinney DO Lymphocytes/100 WBC (Bld) 30 % Normal 25-45 [facility] Comment on above: Performed By: #### L IP, BHCG, CDP, PT, LIVP, BMP #### [facility] [place] [address] Print Line Operator: Rashad Mckinney DO MCH (RBC) [Entitic mass] 29.9 pg Normal 26-34 [facility] Comment on above: Performed By: #### L IP, BHCG, CDP, PT, LIVP, BMP #### [facility] [place] [address] Print Line Operator: Rashad Mckinney DO MCHC (RBC) [Mass/Vol] 33.3 g/dL Normal 31-37 [facility] Comment on above: Performed By: #### L IP, BHCG, CDP, PT, LIVP, BMP #### [facility] [place] [address] Print Line Operator: Rashad Mckinney DO MCV (RBC) [Entitic vol] 89.6 fL Normal 80-100 [facility] Comment on above: Performed By: #### L IP, BHCG, CDP, PT, LIVP, BMP #### [facility] [address] [place] [address] Print Line Operator: Rashad Mckinney DO Monocytes (Bld) [#/Vol] 0.40 10*3/uL Normal 0.1-1.3 [facility] Comment on above: Performed By: #### L IP, BHCG, CDP, PT, LIVP, BMP #### [facility] [address] [place] [address] Print Line Operator: Rashad Mckinney DO Monocytes/100 WBC (Bld) 6 % Normal 2-8 [facility] Comment on above: Performed By: #### L IP, BHCG, CDP, PT, LIVP, BMP #### [facility] [address] [place] [address] Print Line Operator: Rashad Mckinney DO Neutrophil (Seg) 61 % Normal 34-64 [facility] Comment on above: Performed By: #### L IP, BHCG, CDP, PT, LIVP, BMP #### [facility] [place] [address] Print Line Operator: Rashad Mckinney DO Platelet mean volume (Bld) [Entitic vol] 7.2 fL Normal 6.0-12.0 [facility] Comment on above: Performed By: #### L IP, BHCG, CDP, PT, LIVP, BMP #### [facility] [address] [place] [address] Print Line Operator: Rashad Mckinney DO Platelets (Bld) [#/Vol] 272 10*3/uL Normal 150-450 [facility] Comment on above: Performed By: #### L IP, BHCG, CDP, PT, LIVP, BMP #### [facility] [address] [facility] [place] [address] Print Line Operator: Rashad Mckinney DO RBC (Bld) [#/Vol] 4.61 10*6/uL Normal 4.0-5.2 [facility] Comment on above: Performed By: #### L IP, BHCG, CDP, PT, LIVP, BMP #### [facility] [address] [facility] [place] [address] Print Line Operator: Rashad Mckinney DO WBC (Bld) [#/Vol] 7.0 10*3/uL Normal 4.5-13.5 [facility] Comment on above: Performed By: #### L IP, BHCG, CDP, PT, LIVP, BMP #### [facility] [address] [facility] [place] [address] Print Line Operator: Rashad Mckinney DO HCG, ,Urineon 06-06 Beta HCG ( test) Ql (U) Negative Normal NEG [facility] Comment on above: Result Comment: [...] By: #### U HCG, UAX, UMICAO #### [facility] [address] [facility] [place] [address] Print Line Operator: Rashad Mckinney DO Beta HCG ( test) Ql (U) Negative NEGATIVE [facility] Comment on above: Specimens with hCG l evels near the threshold of the test (25 mIU/mL) may give a negative or indeterminate result. In such cases, another test should be performed with a new specimen in 48-72 hours. If early is suspected clinically in this setting, correlation with quantitative serum b-hCG level is suggested. [facility] HCG, Quanton 06-06-2022 HCG, Quant <1 Normal <5 [facility] Comment on above: Result Comment: Non-preg premeno <=5 Postmeno <=8 Male <=3 If HCG results do not concur with clinical observations, additional testing to confirm results is recommended. Performed By: #### L IP, BHCG, CDP, PT, LIVP, BMP #### [facility] [address] [place] [address] Print Line Operator: Rashad Mckinney, HCG, Quantitative, on 06-06-2022 hCG Quant NINF [facility] Comment on above: Non-preg premeno <=5 Postmeno <=8 Male <=3 If HCG results do not concur with clinical observations, additional testing to confirm results is recommended. [facility] Hepatic Function Panelon Albumin [Mass/Vol] 5.1 g/dL 3.5 - 5.2 g/dL [facility] ALP (Bld) [Catalytic activity/Vol] 118 U/L High 35 - 104 U/L [facility] ALT [Catalytic activity/Vol] 14 U/L 5 - 33 U/L [facility] AST [Catalytic activity/Vol] 20 U/L NINF - 32 U/L [facility] Bilirubin [Mass/Vol] 0.20 mg/dL Low 0.3 - 1.2 mg/dL [facility] Bilirubin, Indirect Can not be calculated 0 - 1 mg/dL [facility] Bilirubin.indirect [Mass/Vol] mg/dL NINF - 0.31 mg/dL [facility] Free PSA/Total PSA [Mass fraction] 7.6 g/dL 6.4 - 8.3 g/dL [facility] Lipaseon 06-06-2022 Lipase [Catalytic activity/Vol] 28 U/L Normal 13-60 [facility] Comment on above: Performed By: #### L IP, BHCG, CDP, PT, LIVP, BMP #### [facility] [address] [place] [address] Print Line Operator: Rashad Mckinney DO Lipase [Catalytic activity/Vol] 28 U/L 13 - 60 U/L [facility] Liver Profileon 06-06-2022 Albumin [Mass/Vol] 5.1 g/dL Normal 3.5-5.2 [facility] Comment on above: Performed By: #### L IP, BHCG, CDP, PT, LIVP, BMP #### [facility] [address] [place] [address] Print Line Operator: Rashad Mckinney DO Alkaline Phos 118 U/L High 35-104 [facility] Comment on above: Performed By: #### L IP, BHCG, CDP, PT, LIVP, BMP #### [facility] [address] [place] [address] Print Line Operator: Rashad Mckinney DO ALT [Catalytic activity/Vol] 14 U/L Normal 5-33 [facility] Comment on above: Performed By: #### L IP, BHCG, CDP, PT, LIVP, BMP #### [facility] [address] [place] [address] Print Line Operator: Rashad Mckinney DO AST [Catalytic activity/Vol] 20 U/L Normal <32 [facility] Comment on above: Performed By: #### L IP, BHCG, CDP, PT, LIVP, BMP #### [facility] [address] [place] [address] Print Line Operator: Rashad Mckinney DO Bilirubin [Mass/Vol] 0.20 mg/dL Low 0.3-1.2 [facility] Comment on above: Performed By: #### L IP, BHCG, CDP, PT, LIVP, BMP #### [facility] [address] [place] [address] Print Line Operator: Rashad Mckinney DO Bilirubin, Indirect Can not be calculated Normal 0.00- 1.00 [facility] Comment on above: Performed By: #### L IP, BHCG, CDP, PT, LIVP, BMP #### [facility] [address] [place] [address] Print Line Operator: Rashad Mckinney DO Bilirubin.indirect [Mass/Vol] mg/dL Normal <0.31 [facility] Comment on above: Performed By: #### L IP, BHCG, CDP, PT, LIVP, BMP #### [facility] [address] [place] [address] Print Line Operator: Rashad Mckinney DO Protein [Mass/Vol] 7.6 g/dL Normal 6.4-8.3 [facility] Comment on above: Performed By: #### L IP, BHCG, CDP, PT, LIVP, BMP #### [facility] [address] [place] [address] Print Line Operator: Rashad Mckinney DO Microscopic Urinalysison Bacteria, UA FEW Abnormal None [facility] Casts UA 3 to 5 /LPF [facility] Epithelial Cells UA 0 TO 2 /HPF [facility] Interpretation and review of laboratory results Abnormal [facility] RBC, UA TOO NUMEROUS TO COUNT /HPF [facility] WBC, UA 10 TO 20 /HPF [facility] No Panel Informationon 06-06 Interpretation and review of laboratory results Abnormal [facility] PTon 06-06-2022 INR Coag (PPP) [Relative time] 0.9 {INR} Normal [facility] Comment on above: Result Comment: Non-therapeutic Range: INR = 0.9-1.2 Therapeutic Range: Moderate Anticoagulant Intensity: INR = 2.0-3.0 High Anticoagulant Intensity: INR = 2.5-3.5 Performed By: #### L IP, BHCG, CDP, PT, LIVP, BMP #### [facility] [address] [place] [address]. [place] [address] Print Line Operator: Rashad Mckinney DO PT Coag (PPP) [Time] 12.3 s Normal 11.8-14.6 [facility] Comment on above: Performed By: #### L IP, BHCG, CDP, PT, LIVP, BMP #### [facility] [address] [place] [address]. [place] [address] Print Line Operator: Rashad Mckinney DO Protime-INRon 06-06-2022 INR Coag (Bld) [Relative time] 0.9 {INR} [facility] Comment on above: Non-therapeutic Range: INR = 0.9-1.2 Therapeutic Range: Moderate Anticoagulant Intensity: INR = 2.0-3.0 High Anticoagulant Intensity: INR = 2.5-3.5 PT Coag (PPP) [Time] 12.3 s [facility] TYPE AND SCREENon 06-06-2022 ABO/Rh Positive [facility] Arm Band Number [id number] [facility] Expiration Date 06/09/2022,2357 [facility] Type + Screenon 06-06-2022 Type + Screen Sample Expiration 06/09/2022,235 Arm Band Number [id number] ABO/Rh(D) A POSITIVE Antibody Screen NEGATIVE Normal [facility] Comment on above: Performed By: #### T YS #### [facility] [address] [place] [address]. [place] [address] Print Line Operator: Rashad Mckinney DO UA w/Reflex Cultureon 2021 Bilirubin, SemiQt,Ur Negative Normal NEG [facility] Comment on above: Performed By: #### U HCG, UAX, UMICAO #### [facility] [address] [place] [address] Print Line Operator: Rashad Mckinney DO Blood, Urine LARGE Abnormal NEG [facility] Comment on above: Performed By: #### U HCG, UAX, UMICAO #### [facility] [address] [place] [address] Print Line Operator: Rashad Mckinney DO Clarity (U) Cloudy Abnormal CLEAR [facility] Comment on above: Performed By: #### U HCG, UAX, UMICAO #### [facility] [address] [place] [address] Print Line Operator: Rashad Mckinney DO Color (U) Yellow Normal YEL [facility] Comment on above: Performed By: #### U HCG, UAX, UMICAO #### [facility] [address] [place] [address] Print Line Operator: Rashad Mckinney DO Glucose Ql (U) Negative Normal NEG [facility] Comment on above: Performed By: #### U HCG, UAX, UMICAO #### [facility] [address] [place] [address] Print Line Operator: Rashad Mckinney DO Ketones Ql (U) Negative Normal NEG [facility] Comment on above: Performed By: #### U HCG, UAX, UMICAO #### [facility] [address] [place] [address] [place] [address] Print Line Operator: Rashad Mckinney DO Leukocyte esterase Test strip Ql (U) SMALL Abnormal NEG [facility] Comment on above: Performed By: #### U HCG, UAX, UMICAO #### [facility] [address] [place] [address] Print Line Operator: Rashad Mckinney DO Nitrite,Ur Negative Normal NEG [facility] Comment on above: Performed By: #### U HCG, UAX, UMICAO #### [facility] [address] [facility] [place] [address] Print Line Operator: Rashad Mckinney DO PH,Ur 7.5 Normal 5.0-8.0 [facility] Comment on above: Performed By: #### U HCG, UAX, UMICAO #### [facility] [address] [place] [address]. [place] [address] Print Line Operator: Rashad Mckinney DO Protein Ql (U) 3+ Abnormal NEG [facility] Comment on above: Performed By: #### U HCG, UAX, UMICAO #### [facility] [address] [place] [address] Print Line Operator: Rashad Mckinney DO Spec. Hassell,Ur 1.012 Normal 1.000-1.030 [facility] Comment on above: Performed By: #### U HCG, UAX, UMICAO #### [facility] [address] [place] [address] Print Line Operator: Rashad Mckinney DO Urobilinogen,Ur Normal Normal NORM [facility] Comment on above: Performed By: #### U HCG, UAX, UMICAO #### [facility] [address] [place] [address] Print Line Operator: Rashad Mckinney DO Urinalysis with Reflex to Cu ltureon 06-06-2022 Bilirubin Urine Negative NEGATIVE [facility] Color, UA Yellow Yellow [facility] Glucose, Ur Negative NEGATIVE [facility] Interpretation and review of laboratory results Abnormal [facility] Ketones Ql (U) Negative NEGATIVE [facility] Leukocyte esterase Test strip Ql (U) SMALL Abnormal NEGATIVE [facility] Nitrite, Urine Negative NEGATIVE [facility] pH, UA 7.5 5 - 8 [facility] Protein, UA 3+ Abnormal NEGATIVE [facility] Specific Hassell, UA 1.012 1 - 1.03 [facility] Turbidity UA Cloudy Abnormal Clear [facility] Urine Hgb LARGE Abnormal NEGATIVE [facility] Urobilinogen, Urine Normal Normal [facility] Urinalysis,Microon 2 Bacteria FEW Abnormal NONE [facility] Comment on above: Performed By: #### U HCG, UAX, UMICAO #### [facility] [place] [address] Print Line Operator: Rashad Mckinney DO Casts 3 to 5 Normal [facility] Comment on above: Performed By: #### U HCG, UAX, UMICAO #### [facility] [address] [place] [address] Print Line Operator: Rashad Mckinney DO Epithelial cells LM Ql (Urine sed) 0 TO 2 Normal [facility] Comment on above: Performed By: #### U HCG, UAX, UMICAO #### [facility] [address] [place] [address] Print Line Operator: Rashad Mckinney DO Urine RBC's TOO NUMEROUS TO COUNT Normal [facility] Comment on above: Performed By: #### U HCG, UAX, UMICAO #### [facility] [address] [place] [address] Print Line Operator: Rashad Mckinney DO Urine WBC's 10 TO 20 Normal [facility] Comment on above: Performed By: #### U HCG, UAX, UMICAO #### [facility] [address] [place] [address] Print Line Operator: Rashad Mckinney DO ALBUMIN BLOODon 05-06-2022 Albumin [Mass/Vol] 4.8 g/dL Normal 3.5-5.7 [facility] Comment on above: Performed By: #### 3 1550, 20336, 47223, 38758, 38974, 35278 #### [facility] [address] [place] [address], [place] BASIC METABOLIC PANELon 07-2 Calcium [Mass/Vol] 9.6 mg/dL Normal 8.6-10.3 [facility] Comment on above: Performed By: #### 3 1550, 00721, 76352, 16206, 46572, 13684 #### [facility] [address] [place] [address], [place] Chloride [Moles/Vol] 107 mmol/L Normal 98-107 [facility] Comment on above: Performed By: #### 3 1550, 34560, 32225, 40218, 87532, 50695 #### [facility] [address] [place] [address], [place] CO2 [Moles/Vol] 21 mmol/L Normal 21-31 [facility] Comment on above: Performed By: #### 3 1550, 85044, 71616, 70506, 59842, 25904 #### [facility] [address] [place] [address], [place] Creatinine [Mass/Vol] 1.33 mg/dL High 0.60-1.20 [facility] Comment on above: Performed By: #### 3 1550, 77233, 79772, 02547, 20239, 84484 #### [facility] [address] [place] [address], [place] eGFR- non- 51 ml/min/1.73sq m Abnormal >60 [facility] Comment on above: Performed By: #### 3 1550, 89893, 57334, 92825, 34312, 89361 #### [facility] [address] [place] [address], [place] GFR/1.73 sq M.predicted among blacks MDRD (S/P/Bld) [Vol rate/Area] mL/min/{1.73_m2} Normal >60 [facility] Comment on above: Performed By: #### 3 1550, 58115, 22499, 62587, 05742, 88625 #### [facility] [address] [place] [address], [place] Glucose [Mass/Vol] 50 mg/dL Low 70-100 [facility] Comment on above: Performed By: #### 3 1550, 01277, 80032, 37707, 81011, 55443 #### [facility] [address] [place] [address], [place] Potassium [Moles/Vol] 4.6 mmol/L Normal 3.5-5.1 [facility] Comment on above: Performed By: #### 3 1550, 70464, 41230, 61303, 86344, 53013 #### [facility] [address] [place] [address], [place] Sodium [Moles/Vol] 140 mmol/L Normal 136-145 [facility] Comment on above: Performed By: #### 3 1550, 33903, 94073, 09329, 71544, 09295 #### [facility] [address] [place] [address], [place] Urea nitrogen [Mass/Vol] 21 mg/dL Normal 7-25 [facility] Comment on above: Performed By: #### 3 1550, 03322, 59525, 08122, 63070, 45670 #### [facility] [address] [place] [address], [place] CBC COMPLETE BLOOD COUNTon 0 - Erythrocyte distribution width (RBC) [Ratio] 12.7 % Normal 11.5-15.0 [facility] Comment on above: Performed By: #### 5 0608 #### [facility] [address] [place] [address], [place] Hematocrit (Bld) [Volume fraction] 41.8 % Normal 36.0-45.0 [facility] Comment on above: Performed By: #### 5 0608 #### [facility] [address] [facility] [place] [address], [facility] Hemoglobin (Bld) [Mass/Vol] 13.6 g/dL Normal 12.0-15.0 [facility] Comment on above: Performed By: #### 5 0608 #### [facility] [address] [facility] MCH (RBC) [Entitic mass] 29.4 pg Normal 27.0-33.0 [facility] Comment on above: Performed By: #### 5 0608 #### [facility] [address] [facility] MCHC (RBC) [Mass/Vol] 32.5 g/dL Normal 32.0-35.0 [facility] Comment on above: Performed By: #### 5 0608 #### [facility] [address] [facility] [place] [address], [facility] MCV (RBC) [Entitic vol] 90.5 fL Normal 82.0-98.0 [facility] Comment on above: Performed By: #### 5 0608 #### [facility] [address] [facility] Nucleated RBC/100 WBC (Bld) [Ratio] 0 % Normal 0-0 [facility] Comment on above: Performed By: #### 5 0608 #### [facility] [address] [facility] [place] [address], [facility] PLAT CNT 263 10*3/uL Normal 150-400 [facility] Comment on above: Performed By: #### 5 0608 #### [facility] [address] [place] [address], [facility] RBC (Bld) [#/Vol] 4.62 10*6/uL Normal 3.80-5.00 [facility] Comment on above: Performed By: #### 5 0608 #### [facility] [address] [place] [address], [facility] WBC (Bld) [#/Vol] 6.59 10*3/uL Normal 4.00-10.60 [facility] Comment on above: Performed By: #### 5 0608 #### [facility] [address] [place] [address], [facility] CREATININE URINE RANDOMon Creatinine (U) [Mass/Vol] 79.0 mg/dL Normal [facility] Comment on above: Result Comment: Ther e are no established reference values for random urine specimens Performed By: #### 4 1802, 45109 #### [facility] [address] [place] [id number], [facility] MAGNESIUM BLOODon 05-06-2022 Magnesium [Mass/Vol] 2.0 mg/dL Normal 1.9-2.7 [facility] Comment on above: Performed By: #### 3 1550, 10375, 71701, 99291, 59714, 17511 #### [facility] [address] [place] [address], [facility] PHOSPHORUS BLOODon Phosphate [Mass/Vol] 3.6 mg/dL Normal 2.5-5.0 [facility] Comment on above: Performed By: #### 3 1550, 77397, 58214, 68359, 00920, 98557 #### [facility] [address] [place] [address], [facility] PTH INTACTon 05-06-2022 PTH INTACT 40 pg/mL Normal 12-88 [facility] Comment on above: Performed By: #### 3 1550, 45210, 35725, 71405, 50605, 63384 #### [facility] [address] [place] [address], [facility] T PROT UR [place] 05-06-2022 U TOTAL PROTEIN 90.0 mg/dL Normal [facility] Comment on above: Result Comment: Ther e are no established reference values for random urine specimens Performed By: #### 4 1802, 22836 #### [facility] [address] [place] [address], [facility] VITAMIN D 25-HYDROXYon 05-06 VITAMIN D 25-OH 37.7 ng/mL Normal 30.0-80.0 [facility] Comment on above: Result Comment: >80. 0 Toxicity possible Performed By: #### 3 1550, 95805, 18547, 75296, 74280, 99375 #### [facility] [address] [place] [address], [facility] POCT urine pregnancyon 09-14 Beta HCG ( test) Ql (U) Negative NEGATIVE [employer] Comment on above: Specimens with hCG l evels near the threshold of the test (25 mIU/mL) may give a negative or indeterminate result. In such cases, another test should be performed with a new specimen in 48-72 hours. If early is suspected clinically in this setting, correlation with quantitative serum b-hCG level is suggested. [employer] RENAL COMPLETEOrdered By: Lex Willson on 08-18-2021 Similar appearance o f kidneys with no acute findings. No hydronephrosis. Bladder calculi. [employer] Work Phone: EXAMINATION: RETROPERITONEAL ULTRASOUND OF THE KIDNEYS [...] 1.2 and 1.4 cm suggesting bladder stones. [employer] Phone: Itz, pn Incoming Radiant Results From [employer] - 08/18/2021 10:12 AM EDT EXAMINATION: RETROPERITONEAL [...] no acute findings. No hydronephrosis. Bladder calculi. [employer] Phone: [employer] Phone: , UrineOrdered By: Nikko Bell on 02-19-2021 Beta HCG ( test) Ql (U) Negative NEGATIVE [employer] Phone: Comment on above: Specimens with hCG [...] on 02-18-2021 1. No evidence of hydronephrosis. [employer] Phone: EXAMINATION: RETROPERITONEAL ULTRASOUND OF THE KIDNEYS [...] mildly distended and cannot be fully evaluated. [employer] Phone: Itz, Mhpn Incoming Radiant Results From [employer] - 02/18/2021 1:53 PM EDT EXAMINATION: RETROPERITONEAL [...] evaluated. IMPRESSION: 1. No evidence of hydronephrosis. [employer] Phone: CBC Auto Differentialon 02-0 Basophils (Bld) [#/Vol] 0.05 10*3/uL [place] Basophils/100 WBC (Bld) 1 % 0 - 2 % [place] Differential Type NOT REPORTED [place] Eosinophils (Bld) [#/Vol] 0.13 10*3/uL [place] Eosinophils/100 WBC (Bld) 3 % 1 - 4 % [place] Erythrocyte distribution width (RBC) [Ratio] 11.9 % 11.8 - 14.4 % [place] Hematocrit (Bld) [Volume fraction] 37.7 % 36.3 - 47.1 % [place] Hemoglobin (Bld) [Mass/Vol] 12.2 g/dL 11.9 - 15.1 g/dL [place] Immature granulocytes (Bld) [#/Vol] 10*3/uL [place] Immature granulocytes (Bld) [#/Vol] 0 % 0 [place] Lymphocytes (Bld) [#/Vol] 1.97 10*3/uL [place] Lymphocytes/100 WBC (Bld) 41 % 25 - 45 % [place] MCH (RBC) [Entitic mass] 29.5 pg 25 - 35 pg [place] MCHC (RBC) [Mass/Vol] 32.4 g/dL 28.4 - 34.8 g/dL [place] MCV (RBC) [Entitic vol] 91.1 fL 78 - 102 fL [place] Monocytes (Bld) [#/Vol] 0.31 10*3/uL [place] Monocytes/100 WBC (Bld) 7 % 2 - 8 % [place] Platelet mean volume (Bld) [Entitic vol] 9.6 fL 8.1 - 13.5 fL [place] Platelets (Bld) [#/Vol] 202 10*3/uL [place] Platelets (Bld) [#/Vol] NOT REPORTED [place] RBC (Bld) [#/Vol] 4.14 10*6/uL 3.95 - 5.1 1 m/uL [place] RBC morphology finding Nom (Bld) NOT REPORTED [place] Segmented neutrophils/100 WBC (Bld) 48 % 34 - 64 % [place] Segs Absolute 2.33 [place] WBC (Bld) [#/Vol] 0.0 10*3/uL 0.0 per 100 WBC M [place] WBC (Bld) [#/Vol] 4.8 10*3/uL [place] WBC Morphology NOT REPORTED [place] Comprehensive Metabolic Pane chris 11-25-2020 Albumin [Mass/Vol] 4.6 g/dL 3.5 - 5.2 g/dL [place] Albumin/Globulin [Mass ratio] 2.1 {ratio} [place] ALP [Catalytic activity/Vol] 83 U/L 35 - 104 U/L [place] ALT [Catalytic activity/Vol] 11 U/L 5 - 33 U/L [place] Anion gap [Moles/Vol] 8 mmol/L Low 9 - 17 mmol/L [place] AST [Catalytic activity/Vol] 18 U/L <32 [place] Bilirubin Ql (U) 0.17 mg/dL Low 0.3 - 1.2 mg/dL [place] Bun/Cre Ratio NOT REPORTED [place] Calcium [Mass/Vol] 9.5 mg/dL 8.6 - 10. 4 mg/dL [place] Chloride [Moles/Vol] 104 mmol/L 98 - 107 mmol/L [place] CO2 [Moles/Vol] 25 mmol/L 20 - 31 mmol/L [place] Creatinine [Mass/Vol] 1.24 mg/dL High 0.5 - 0.9 mg/d L [place] GFR NOT REPORTED >60 mL/min [place] GFR Non- Pediatric GFR requires additional information. Refer to [facility] website for calculator. >60 mL/min [place] GFR/1.73 sq M predicted among non-blacks MDRD (S/P/Bld) [Vol rate/Area] [place] Comment on above: Average GFR for <20 years old not available. Chronic Kidney Disease: <60 mL/min/1.73sq m Kidney failure: <15 mL/min/1.73sq m eGFR calculated using average adult body mass. Additional eGFR calculator available at: http://www.E-Semble.Listnerd/multiple_crcl_2012.htm GFR/1.73 sq M predicted among non-blacks MDRD (S/P/Bld) [Vol rate/Area] NOT REPORTED [place] Glucose [Mass/Vol] 82 mg/dL 70 - 99 mg/dL [place] Interpretation and review of laboratory results Abnormal [place] Potassium [Moles/Vol] 4.6 mmol/L 3.7 - 5.3 mmol/L [place] Protein [Mass/Vol] 6.8 g/dL 6.4 - 8.3 g/dL [place] Sodium [Moles/Vol] 137 mmol/L 135 - 144 mmol/L [place] Urea nitrogen [Mass/Vol] 21 mg/dL High 6 - 20 mg/dL [place] CBC Auto Differentialon 10-0 7-2020 Basophils (Bld) [#/Vol] 0.04 10*3/uL [place] Basophils/100 WBC (Bld) 1 % 0 - 2 % [place] Differential Type NOT REPORTED [place] Eosinophils (Bld) [#/Vol] 0.11 10*3/uL [place] Eosinophils/100 WBC (Bld) 2 % 1 - 4 % [place] Erythrocyte distribution width (RBC) [Ratio] 11.6 % Low 11.8 - 14.4 % [place] Hematocrit (Bld) [Volume fraction] 40.6 % 36.3 - 47.1 % [place] Hemoglobin (Bld) [Mass/Vol] 13.4 g/dL 11.9 - 15.1 g/dL [place] Immature granulocytes (Bld) [#/Vol] 10*3/uL [place] Immature granulocytes (Bld) [#/Vol] 0 % 0 [place] Interpretation and review of laboratory results Abnormal [place] Lymphocytes (Bld) [#/Vol] 1.69 10*3/uL [place] Lymphocytes/100 WBC (Bld) 30 % 25 - 45 % [place] MCH (RBC) [Entitic mass] 30.0 pg 25 - 35 pg [place] MCHC (RBC) [Mass/Vol] 33.0 g/dL 28.4 - 34.8 g/dL [place] MCV (RBC) [Entitic vol] 90.8 fL 78 - 102 fL [place] Monocytes (Bld) [#/Vol] 0.31 10*3/uL [place] Monocytes/100 WBC (Bld) 6 % 2 - 8 % [place] Platelet mean volume (Bld) [Entitic vol] 9.0 fL 8.1 - 13.5 fL [place] Platelets (Bld) [#/Vol] NOT REPORTED [place] Platelets (Bld) [#/Vol] 240 10*3/uL [place] RBC (Bld) [#/Vol] 4.47 10*6/uL 3.95 - 5.1 1 m/uL [place] RBC morphology finding Nom (Bld) NOT REPORTED [place] Segmented neutrophils/100 WBC (Bld) 61 % 34 - 64 % [place] Segs Absolute 3.48 [place] WBC (Bld) [#/Vol] 5.6 10*3/uL [place] WBC (Bld) [#/Vol] 0.0 10*3/uL 0.0 per 100 WBC M [place] WBC Morphology NOT REPORTED [place] Comprehensive Metabolic Pane chris 07-23-2020 Albumin [Mass/Vol] 4.8 g/dL 3.5 - 5.2 g/dL [place] Albumin/Globulin [Mass ratio] 1.9 {ratio} [place] ALP [Catalytic activity/Vol] 97 U/L 35 - 104 U/L [place] ALT [Catalytic activity/Vol] 11 U/L 5 - 33 U/L [place] Anion gap [Moles/Vol] 11 mmol/L 9 - 17 mmol/L [place] AST [Catalytic activity/Vol] 17 U/L <32 [place] Bilirubin Ql (U) 0.17 mg/dL Low 0.3 - 1.2 mg/dL [place] Bun/Cre Ratio NOT REPORTED [place] Calcium [Mass/Vol] 9.7 mg/dL 8.6 - 10. 4 mg/dL [place] Chloride [Moles/Vol] 105 mmol/L 98 - 107 mmol/L [place] CO2 [Moles/Vol] 23 mmol/L 20 - 31 mmol/L [place] Creatinine [Mass/Vol] 0.98 mg/dL High 0.5 - 0.9 mg/d L [place] GFR NOT REPORTED >60 mL/min [place] GFR Non- Pediatric GFR requires additional information. [facility] to [facility] for calculator. >60 mL/min [place] GFR/1.73 sq M predicted among non-blacks MDRD (S/P/Bld) [Vol rate/Area] NOT REPORTED [place] GFR/1.73 sq M predicted among non-blacks MDRD (S/P/Bld) [Vol rate/Area] [place] Comment on above: Average GFR for <20 years old not available. Chronic Kidney Disease: <60 mL/min/1.73sq m Kidney failure: <15 mL/min/1.73sq m eGFR calculated using average adult body mass. Additional eGFR calculator available at: http://www.[employer]/multiple_crcl_2011.htm Glucose [Mass/Vol] 92 mg/dL 70 - 99 mg/dL [place] Interpretation and review of laboratory results Abnormal [place] Potassium [Moles/Vol] 4.5 mmol/L 3.7 - 5.3 mmol/L [place] Protein [Mass/Vol] 7.3 g/dL 6.4 - 8.3 g/dL [place] Sodium [Moles/Vol] 139 mmol/L 135 - 144 mmol/L [place] Urea nitrogen [Mass/Vol] 16 mg/dL 6 - 20 mg/dL [place] PTH, Intacton 07-23-2020 Pth Intact 18.78 pg/mL 15 - 65 pg/mL [place] Comment on above: SAMPLES FROM PATIENT S ROUTINELY RECEIVING HIGH DOSE BIOTIN THERAPY MAY SHOW FALSELY DEPRESSED RESULTS. ADDITIONAL INFORMATION MAY BE REQUIRED FOR DIAGNOSIS. Phosphoruson 07-23-2020 Phosphate [Mass/Vol] 4.2 mg/dL 2.5 - 4.8 mg/dL [place] Prealbuminon 07-23-2020 Prealbumin [Mass/Vol] 29.6 mg/dL 20 - 40 mg/dL [facility] [place] Echocardiogram Limited 2D w Doppler w Color Congenitalon 05-28-2020 Pediatric/Congenital Transthoracic Echocardiography (TTE) Report Demographics Patient Name ELIANA Leger Date of 05/28/2020 Study Date of 2000 Gender Female Age 19 year(s) Race Room Number [id number]^RADHAPIERCE^JAVI ER Height: 61.42 inch, 156 cm Corporate ID [id number] Weight: 94.82 pounds, 43.01 # kg Patient Acct [id number] BSA: 1.38 BMI: 17.67 # m^2 kg/m^2 MR # [id number] [employer] Officer Lieutenant Uvaldo Harris Interpreting Dioni Donnelly Physician Referring [...] stenosis. Miscellaneous Slight pectus excavatum. Z Score ([place]) Measurement Value Range Z Measurement Value Range [...] velocity:0.65 m/s Left PA peak gradient:2 mmHg [facility]- [place], [place] Itz, Mhpn Incoming Cardio Results From [facility] - 05/28/2020 3:52 PM EDT Pediatric/Congenital Transthoracic Echocardiography (TTE) Report Demographics Patient Name ELIANA Leger Date of 05/28/2020 Study Date of 2000 Gender Female Age 19 year(s) Race Room Number [id number]^DAVID^JAVI ER Height: 61.42 inch, 156 cm Corporate ID [id number] Weight: 94.82 pounds, 43.01 # kg Patient Acct [id number] BSA: 1.38 BMI: 17.67 # m^2 kg/m^2 MR # [id number] Correctional Officer Lieutenant Uvaldo Harris Interpreting Dioni Donnelly Physician Referring [...] velocity:0.65 m/s Left PA peak gradient:2 mmHg [employer], [place] Basic Metabolic Panelon 07-0 Anion gap [Moles/Vol] 12 mmol/L 9 - 17 mmol/L [facility] Bun/Cre Ratio NOT REPORTED [place] Calcium [Mass/Vol] 9.9 mg/dL 8.4 - 10. 2 mg/dL [place] Chloride [Moles/Vol] 104 mmol/L 98 - 107 mmol/L [place] CO2 [Moles/Vol] 23 mmol/L 20 - 31 mmol/L [place] Creatinine [Mass/Vol] 1.19 mg/dL High 0.5 - 0.9 mg/d L [place] GFR NOT REPORTED >60 mL/min [place] GFR Non- Pediatric GFR requires additional information. Refer to [facility] website for calculator. >60 mL/min [place] GFR/1.73 sq M predicted among non-blacks MDRD (S/P/Bld) [Vol rate/Area] NOT REPORTED [place] GFR/1.73 sq M predicted among non-blacks MDRD (S/P/Bld) [Vol rate/Area] [place] Comment on above: Average GFR for <20 years old not available. Chronic Kidney Disease: <60 mL/min/1.73sq m Kidney failure: <15 mL/min/1.73sq m eGFR calculated using average adult body mass. Additional eGFR calculator available at: http://[email or web address]/[email or web address]_[email or web address] Glucose [Mass/Vol] 80 mg/dL 60 - 100 mg/dL [place], [place] Interpretation and review of laboratory results Abnormal [place] Potassium [Moles/Vol] 4.8 mmol/L 3.6 - 4.9 mmol/L [place] Sodium [Moles/Vol] 139 mmol/L 135 - 144 mmol/L [place] Urea nitrogen [Mass/Vol] 19 mg/dL High 5 - 18 mg/dL [place] CBC Auto Differentialon 07-0 Basophils (Bld) [#/Vol] 0.03 10*3/uL [place] Basophils/100 WBC (Bld) 1 % 0 - 2 % [place] Differential Type NOT REPORTED [place] Eosinophils (Bld) [#/Vol] 0.19 10*3/uL [place] Eosinophils/100 WBC (Bld) 4 % 1 - 4 % [place] Erythrocyte distribution width (RBC) [Ratio] 11.6 % Low 11.8 - 14.4 % [place] Hematocrit (Bld) [Volume fraction] 45.2 % 36.3 - 47.1 % [place] Hemoglobin (Bld) [Mass/Vol] 14.5 g/dL 11.9 - 15.1 g/dL [place] Immature granulocytes (Bld) [#/Vol] 0 % 0 [place] Immature granulocytes (Bld) [#/Vol] 10*3/uL [place] Interpretation and review of laboratory results Abnormal [place] Lymphocytes (Bld) [#/Vol] 1.70 10*3/uL [place] Lymphocytes/100 WBC (Bld) 33 % 25 - 45 % [place] MCH (RBC) [Entitic mass] 30.4 pg 25 - 35 pg [place] MCHC (RBC) [Mass/Vol] 32.1 g/dL 28.4 - 34.8 g/dL [place] MCV (RBC) [Entitic vol] 94.8 fL 78 - 102 fL [place] Monocytes (Bld) [#/Vol] 0.33 10*3/uL [place] Monocytes/100 WBC (Bld) 6 % 2 - 8 % [place] Platelet mean volume (Bld) [Entitic vol] 9.3 fL 8.1 - 13.5 fL [place] Platelets (Bld) [#/Vol] NOT REPORTED [place] Platelets (Bld) [#/Vol] 216 10*3/uL [place] RBC (Bld) [#/Vol] 4.77 10*6/uL 3.95 - 5.1 1 m/uL [place] RBC morphology finding Nom (Bld) NOT REPORTED [place] Segmented neutrophils/100 WBC (Bld) 56 % 34 - 64 % [place] Segs Absolute 2.90 [place] WBC (Bld) [#/Vol] 5.2 10*3/uL [place] WBC (Bld) [#/Vol] 0.0 10*3/uL 0.0 per 100 WBC M [place] WBC Morphology NOT REPORTED [place] Vitamin B12on 04-23-2020 Cobalamin (Vitamin B12) [Mass/Vol] 692 pg/mL 232 - 1245 pg/mL [place] POCT urine pregnancyon 03-25 Beta HCG ( test) Ql (U) Negative NEGATIVE [place] Comment on above: Specimens with hCG l evels near the threshold of the test (25 mIU/mL) may give a negative or indeterminate result. In such cases, another test should be performed with a new specimen in 48-72 hours. If early is suspected clinically in this setting, correlation with quantitative serum b-hCG level is suggested. COVID-19on 03-22-2020 SARS-CoV-2 [place] SARS-CoV-2, PCR Not Detected Not Detected [place] Comment on above: (NOTE) The Fletcher RealTime SARS-CoV-2 assay is a real-time (rt) reverse transcriptase (RT) polymerase chain reaction (PCR) test intended for the FDTEK system. The SARS-CoV-2 primer and probe sets are designed to detect RNA from SARS-CoV-2 in nasopharyngeal (UNDERWEAR CUTTER) and oropharyngeal (OP) swabs from patients with [...] The above 1 analytes were performed by [address] [address] SARS-CoV-2, Rapid [place] Source .NASOPHARYNGEAL SWAB [place] [id number] 03-22-2020 SARS-CoV-2 Not Detected Normal Not Detected [facility] Comment on above: Result Comment: (NOT E) The Fletcher RealTime SARS-CoV-2 assay is a real-time (rt) reverse transcriptase (RT) polymerase chain reaction (PCR) test intended for the FDTEK system. The SARS-CoV-2 primer and probe sets are designed to detect RNA from SARS-CoV-2 in nasopharyngeal (UNDERWEAR CUTTER) and oropharyngeal (OP) swabs from patients with [...] The above 1 analytes were performed by [address] [address] Performed By: #### C OVID #### [address] [address] Print Line Operator: Bradley Parada MD [facility] [address] [place] [address] Print Line Operator: Zeke Bay MD [facility] [address] [place] [address] Print Line Operator: Gayathri Quintero MD [id number] 03-21-2020 SARS-CoV-2 [facility] Comment on above: Performed By: #### C OVID #### [address] [address] Print Line Operator: Bradley Parada MD [facility] [address] [place] [address] Print Line Operator: Zeke Bay MD [facility] [address] [place] [address] Print Line Operator: Gayathri Quintero MD SARS-CoV-2,Rapid [facility] Comment on above: Performed By: #### C OVID #### [address] [address] Print Line Operator: Bradley Parada MD [facility] [address] [place] [address] Dr. [place], [place] [id number] Print Line Operator: Zeke Bay MD [facility] [address] [place] [address] Print Line Operator: Gayathri Quintero MD SARS-CoV-2 Source .NASOPHARYNGEAL SWAB [facility] Comment on above: Performed By: #### C OVID #### [address] [address] Print Line Operator: Bradley Parada MD [facility] [address] [place], [place] [id number] Print Line Operator: Zeke Bay MD [facility] [address] [place] [address] Print Line Operator: Gayathri Quintero MD CBC Auto DifferentialOrdered By: Nikko Bell on 11-05-2019 Absolute Eos # 0.13 [facility] Work Phone: Absolute Immature Granulocyte <0.03 [employer] Phone: Absolute Lymph # 1.39 [employer] Phone: Absolute [place] # 0.29 [employer] Phone: Basophils (Bld) [#/Vol] 0.03 10*3/uL [employer] Phone: Basophils/100 WBC (Bld) 1 % 0 - 2 % [employer] Phone: Differential Type NOT REPORTED [employer] Phone: Eosinophils/100 WBC (Bld) 2 % 1 - 4 % [employer] Phone: Erythrocyte distribution width (RBC) [Ratio] 12.1 % 11.8 - 14.4 % [employer] Phone: Hematocrit (Bld) [Volume fraction] 45.0 % 36.3 - 47.1 % [employer] Phone: Hemoglobin (Bld) [Mass/Vol] 14.4 g/dL 11.9 - 15.1 g/dL [employer] Phone: Immature granulocytes/100 WBC (Bld) 0 % 0 [employer] Phone: Interpretation and review of laboratory results Abnormal [employer] Phone: Lymphocytes/100 WBC (Bld) 24 % Low 25 - 45 % [employer] Phone: MCH (RBC) [Entitic mass] 30.0 pg 25 - 35 pg [employer] Phone: MCHC (RBC) [Mass/Vol] 32.0 g/dL 28.4 - 34.8 g/dL [employer] Phone: MCV (RBC) [Entitic vol] 93.8 fL 78 - 102 fL [employer] Phone: Monocytes/100 WBC (Bld) 5 % 2 - 8 % [employer] Phone: NRBC Automated 0.0 0.0 per 100 WBC [employer] Phone: Platelet Estimate NOT REPORTED [employer] Phone: Platelet mean volume (Bld) [Entitic vol] 9.3 fL 8.1 - 13.5 fL [employer] Phone: Platelets (Bld) [#/Vol] 238 10*3/uL [employer] Phone: [phone] RBC (Bld) [#/Vol] 4.80 10*6/uL 3.95 - 5.1 1 m/uL [employer] Phone: RBC morphology finding Nom (Bld) NOT REPORTED [employer] Phone: Segmented neutrophils/100 WBC (Bld) 68 % High 34 - 64 % [employer] Phone: Segs Absolute 4.01 [employer] Phone: WBC (Bld) [#/Vol] 5.9 10*3/uL [employer] Phone: WBC Morphology NOT REPORTED [employer] Phone: Comprehensive Metabolic Pane lOrdered By: Nikko Bell on 11-05-2019 Albumin [Mass/Vol] 4.7 g/dL High 3.2 - 4.5 g/dL [facility] Work Phone: Albumin/Globulin [Mass ratio] 1.8 {ratio} [employer] Phone: ALP [Catalytic activity/Vol] 100 U/L 47 - 119 U/L [employer] Phone: ALT [Catalytic activity/Vol] 9 U/L 5 - 33 U/L [employer] Phone: Anion gap [Moles/Vol] 10 mmol/L 9 - 17 mmol/L [employer] Phone: AST [Catalytic activity/Vol] 15 U/L <32 [employer] Phone: Bilirubin [Mass/Vol] 0.16 mg/dL Low 0.3 - 1.2 mg/dL [employer] Phone: Bun/Cre Ratio NOT REPORTED [employer] Phone: Calcium [Mass/Vol] 10.3 mg/dL High 8.4 - 10. 2 mg/dL [employer] Phone: Chloride [Moles/Vol] 99 mmol/L 98 - 107 mmol/L [employer] Phone: CO2 [Moles/Vol] 25 mmol/L 20 - 31 mmol/L [employer] Phone: Creatinine [Mass/Vol] 0.97 mg/dL High 0.5 - 0.9 mg/d L [employer] Phone: GFR NOT REPORTED >60 mL/min [employer] Phone: GFR Comment [employer] Phone: Comment on above: Average GFR for <20 years old not available. Chronic Kidney Disease: <60 mL/min/1.73sq m Kidney failure: <15 mL/min/1.73sq m eGFR calculated using average adult body mass. Additional eGFR calculator available at: http://www.E-Semble.com/multiple_crcl_2012.htm GFR Non- Pediatric GFR requires additional information. Refer to [facility] website for calculator. >60 mL/min [employer] Phone: GFR Staging NOT REPORTED [employer] Phone: Glucose [Mass/Vol] 105 mg/dL High 60 - 100 mg/dL [employer] Phone: Interpretation and review of laboratory results Abnormal [employer] Phone: Potassium [Moles/Vol] 4.5 mmol/L 3.6 - 4.9 mmol/L [employer] Phone: Protein [Mass/Vol] 7.3 g/dL 6 - 8 g/dL [employer] Phone: Sodium [Moles/Vol] 134 mmol/L Low 135 - 144 mmol/L [employer] Phone: Urea nitrogen [Mass/Vol] 13 mg/dL 5 - 18 mg/dL [employer] Phone: FerritinOrdered By: Nikko roca on 11-05-2019 Ferritin 15 ug/L 13 - 150 ug/L [employer] Phone: Iron and TIBCOrdered By: Nikko sal on 11-05-2019 Iron [Mass/Vol] 98 ug/dL 37 - 145 ug/dL [employer] Phone: Iron Saturation 30 % 20 - 55 % [employer] Phone: TIBC 323 ug/dL 250 - 450 ug/dL [employer] Phone: UIBC 225 ug/dL 112 - 347 ug/dL [employer] Phone: PTH, IntactOrdered By: Nikko campa on 11-05-2019 Pth Intact 24.76 pg/mL 15 - 65 pg/mL [employer] Phone: Comment on above: SAMPLES FROM PATIENT S ROUTINELY RECEIVING HIGH DOSE BIOTIN THERAPY MAY SHOW FALSELY DEPRESSED RESULTS. ADDITIONAL INFORMATION MAY BE REQUIRED FOR DIAGNOSIS. PhosphorusOrdered By: Nikko winter on 11-05-2019 Phosphate [Mass/Vol] 4.4 mg/dL 2.5 - 4.8 mg/dL [employer] Phone: Echocardiogram Sector w Dopp ler PediatricOrdered By: Dioni Donnelly on 10-03-2019 Pediatric/Congenital Transthoracic Echocardiography (TTE) Report Demographics Patient Name ELIANA Leger Date of Study 10/03/2019 Date of 2000 Gender Female Age 19 year(s) Race Room Number [id number]^DAVID^JAVI ER Height: 61.02 inch, 155 cm Corporate ID [id number] Weight: 92.6 pounds, 42 kg # Patient Acct [id number] BSA: 1.36 BMI: 17.48 # m^2 kg/m^2 MR # [id number] Correctional Officer Lieutenant Uvaldo Harris Interpreting Dioni Donnelly Physician Referring [...] velocity:0.68 m/s Left PA peak gradient:2 mmHg [employer] Phone: Itz, Mhpn Incoming Cardio Results From [facility] - 10/03/2019 4:01 PM EST Pediatric/Congenital Transthoracic Echocardiography (TTE) Report Demographics Patient Name ELIANA Leger Date of Study 10/03/2019 Date of 2000 Gender Female Age 19 year(s) Race Room Number [id number]^DAVID^JAVI ER Height: 61.02 inch, 155 cm Corporate ID [id number] Weight: 92.6 pounds, 42 kg # Patient Acct [id number] BSA: 1.36 BMI: 17.48 # m^2 kg/m^2 MR # [id number] Correctional Officer Lieutenant Uvaldo Harris Interpreting Dioni Donnelly Physician Referring [...] velocity:0.68 m/s Left PA peak gradient:2 mmHg [employer] Work Phone: Vital Signs Date Time Vital Sign Value Performing Clinician Arabella richter 06-28-2024 10:14 Body height 157.5 cm Dunia Angeles MD Work Phone: [facility] 06-28-2024 10:14-0400 Body mass index (BMI) [Ratio] 19.51 kg/m2 Dunia Angeles MD Work Phone: [facility] 06-28-2024 10:14-0400 Body weight 48.4 kg Dunia Angeles MD Work Phone: [facility] 06-28-2024 10:14-0400 Diastolic blood pressure 68 mm[Hg] Dunia Angeles MD Work Phone: [facility] 06-28-2024 10:14-0400 Heart rate 68 /min Dunia Angeles MD Work Phone: [facility] 06-28-2024 10:14-0400 Systolic blood pressure 103 mm[Hg] Dunia Angeles MD Work Phone: [facility] 05-30-2024 13:59-0400 Body height 157.5 cm Judith Campos MD Work Phone: [facility] 05-30-2024 13:59-0400 Body mass index (BMI) [Ratio] 19.05 kg/m2 Judith Campos MD Work Phone: [facility] 05-30-2024 13:59-0400 Body weight 47.27 kg Judith Campos MD Work Phone: [facility] 05-30-2024 13:59-0400 Diastolic blood pressure 71 mm[Hg] Judith Campos MD Work Phone: [facility] 05-30-2024 13:59-0400 Heart rate 75 /min Judith Campos MD Work Phone: [facility] 05-30-2024 13:59-0400 Systolic blood pressure 118 mm[Hg] Judith Campos MD Work Phone: [facility] 05-07-2024 11:58-0400 Body height 157.5 cm Dunia Angeles MD Work Phone: [facility] 05-07-2024 11:58-0400 Body mass index (BMI) [Ratio] 18.75 kg/m2 Dunia Angeles MD Work Phone: [facility] 05-07-2024 11:58-0400 Body weight 46.5 kg Dunia Angeles MD Work Phone: [facility] 05-07-2024 11:58-0400 Diastolic blood pressure 79 mm[Hg] Dunia Anegles MD Work Phone: [facility] 05-07-2024 11:58-0400 Heart rate 73 /min Dunia Angeles MD Work Phone: [facility] 05-07-2024 11:58-0400 SaO2% (BldA) [Mass fraction] 100 % Dunia Angeles MD Work Phone: [facility] 05-07-2024 11:58-0400 Systolic blood pressure 112 mm[Hg] Dunia Angeles MD Work Phone: [facility] 05-07-2024 11:30-0400 Body height 157.5 cm Dunia Angeles MD Work Phone: [facility] 04-24-2024 08:50-0400 Body weight 45.81 kg Nahomy GODOY-C Work Phone: [facility] 04-24-2024 08:50-0400 Diastolic blood pressure 80 mm[Hg] Nahomy Carcamo PA-C Work Phone: [facility] 04-24-2024 08:50-0400 Systolic blood pressure 114 mm[Hg] Nahomy GODOY-C Work Phone: [facility] 01-16-2024 13:16-0400 Body height 157.5 cm Kathryn [facility]ettles MD [facility]: [facility] 01-16-2024 13:16-0400 Body mass index (BMI) [Ratio] 18.51 kg/m2 Kathryn Nettles MD Work Phone: [facility] 01-16-2024 13:16-0400 Body weight 45.9 kg Kathryn Nettles MD Work Phone: [facility] 01-16-2024 13:16-0400 Diastolic blood pressure 54 mm[Hg] Kathryn Nettles MD Work Phone: [facility] 01-16-2024 13:16-0400 Systolic blood pressure 108 mm[Hg] Kathryn Nettles MD Work Phone: [facility] 12-07-2023 09:20-0500 Body mass index (BMI) [Ratio] 18.07 kg/m2 Ac Mariee MD Work Phone: [facility] 12-07-2023 09:20-0500 Body weight 44.81 kg Ac Mariee MD Work Phone: [facility] 12-07-2023 09:20-0500 Diastolic blood pressure 81 mm[Hg] Ac Mariee MD Work Phone: [facility] 12-07-2023 09:20-0500 Heart rate 85 /min Ac Mariee MD Work Phone: [facility] 12-07-2023 09:20-0500 Systolic blood pressure 122 mm[Hg] Ac Mariee MD Work Phone: [facility] 11-15-2023 09:55-0500 Body mass index (BMI) [Ratio] 17.81 kg/m2 Kathryn Nettles MD Work Phone: [facility] 11-15-2023 09:55-0500 Body weight 44.18 kg Kathryn Nettles MD Work Phone: [facility] 11-15-2023 09:55-0500 Diastolic blood pressure 60 mm[Hg] Kathryn Nettles MD Work Phone: [facility] 11-15-2023 09:55-0500 Systolic blood pressure 108 mm[Hg] Kathryn Nettles MD Work Phone: [facility] 11-07-2023 14:09-0500 Body height 157.5 cm Kathryn Nettles MD Work Phone: [facility] [employer] [facility] 11-07-2023 14:09-0500 Body mass index (BMI) [Ratio] 18 kg/m2 Kathryn Nettles MD Work Phone: [facility] [employer] [facility] 11-07-2023 14:09-0500 Body weight 44.63 kg Kathryn Nettles MD Work Phone: [facility] [employer] [facility] 06-06-2022 00:12-0400 Body height 157.5 cm Makrell Fernando DO Work Phone: [employer] 06-06-2022 00:12-0400 Body mass index (BMI) [Ratio] 18.66 kg/m2 Markell Gamboad DO Work Phone: [employer] 06-06-2022 00:12-0400 Body temperature 98.4 [degF] Markell Gamboad DO Work Phone: [employer] 06-06-2022 00:12-0400 Body weight 46.27 kg Markell Gamboad DO Work Phone: [employer] 06-06-2022 00:12-0400 Diastolic blood pressure 85 mm[Hg] Markell Girardoud DO Work Phone: [employer] 06-06-2022 00:12-0400 Heart rate 94 /min Markell Gamboad DO Work Phone: [employer] 06-06-2022 00:12-0400 Respiratory rate 16 /min Markell Gamboad DO Work Phone: [employer] 06-06-2022 00:12-0400 SaO2% (BldA) [Mass fraction] 97 % Markell Gamboad DO Work Phone: [employer] 06-06-2022 00:12-0400 Systolic blood pressure 114 mm[Hg] Markell Gamboad DO Work Phone: [facility] [employer] 09-14-2021 15:27-0500 Body temperature 97.3 [degF] Lex Willson MD Work Phone: [employer] 09-14-2021 15:27-0500 Diastolic blood pressure 89 mm[Hg] Lex Willson MD Work Phone: [employer] 09-14-2021 15:27-0500 Heart rate 95 /min Lex Willson MD Work Phone: [employer] 09-14-2021 15:27-0500 Respiratory rate 18 /min Lex Willson MD Work Phone: [employer] 09-14-2021 15:27-0500 SaO2% (BldA) [Mass fraction] 100 % Lex Willson MD Work Phone: [employer] 09-14-2021 15:27-0500 Systolic blood pressure 114 mm[Hg] Lex Willson MD Work Phone: [employer] 09-14-2021 12:59-0500 Body height 157.5 cm Lex Willson MD Work Phone: [employer] 09-14-2021 12:59-0500 Body mass index (BMI) [Percentile] Per age and sex 2.52 % Lex Willson MD Work Phone: [employer] 09-14-2021 12:59-0500 Body mass index (BMI) [Ratio] 17.28 kg/m2 Lex Willson MD Work Phone: [employer] 09-14-2021 12:59-0500 Body weight 42.87 kg Lex Willson MD Work Phone: [employer] 03-25-2020 11:45-0400 Body Temperature 97.2 [degF] Amelia Rich [employer] [place] 03-25-2020 11:45-0400 BP Diastolic 91 mm[Hg] Amelia Rich [employer] [place] , [place] 03-25-2020 11:45-0400 BP Systolic 129 mm[Hg] Amelia Leslie [facility] , [place] 03-25-2020 11:45-0400 Pulse (Heart Rate) 79 /min Amelia Leslie [facility], [place] 03-25-2020 11:45-0400 Pulse Oximetry 100 % Amelia [employer] [facility] , [place] 03-25-2020 11:45-0400 Respiratory Rate 18 /min Amelia Leslie [facility] [place] Encounters Encounter Date Encounter Type Care Provider Facility Start: 06-28-2024 End: 06-28-2024 ambulatory NAHOMY CARCAMO Facility:[facility] Start: 06-28-2024 End: 06-28-2024 Patient encounter procedure Dunia Angeles MD Work Phone: Maternal Medicine Comment on above: Encounter for anatomic survey (Primary Dx); Supervision of high risk , antepartum; screening for malformation using ultrasonics; 20 weeks gestation of ; History of maternal hypertension; Aortic root dilation (HCC); Recurrent urinary tract infection; Chronic renal impairment, unspecified CKD stage; History of sacrococcygeal teratoma of sacrum; Scoliosis, unspecified scoliosis type, unspecified spinal region; Mitrofanoff appendicovesicostomy present (HCC) Supervision of high risk , antepartum (Primary Dx); Recurrent urinary tract infection affecting in second trimester; Aortic root dilation (HCC); History of maternal hypertension; Chronic renal impairment, unspecified CKD stage; Recurrent urinary tract infection; History of sacrococcygeal teratoma of sacrum; Scoliosis, unspecified scoliosis type, unspecified spinal region; Generalized anxiety disorder; Mitrofanoff appendicovesicostomy present (HCC); Observation for suspected genetic condition; 20 weeks gestation of Start: 06-25-2024 End: 06-25-2024 Emergency department patient visit APURVA K [facility] Start: 06-18-2024 End: 06-18-2024 Emergency department patient visit APURVA K [facility] Start: 06-16-2024 End: 06-16-2024 ambulatory JUDITH CAMPOS Facility:[facility] Start: 06-15-2024 End: 06-15-2024 ambulatory Karely Nunez MD Work Phone: Urology Comment on above: NO SHOW (Primary Dx) Start: 06-15-2024 End: 06-15-2024 Telemedicine consultation with patient Karely Nunez MD Work Phone: Urology Start: 05-30-2024 End: 05-30-2024 ambulatory JUDITH CAMPOS Facility:[facility] Start: 05-30-2024 End: 05-30-2024 Patient encounter procedure [employer] [facility] Sonia RAMOS Work Phone: Maternal Medicine Comment [...] early ) Start: 05-15-2024 End: 05-15-2024 ambulatory [facility] Start: 05-07-2024 End: 05-07-2024 ambulatory DUNIA ANGELES Facility:[facility] Start: 05-07-2024 End: 05-07-2024 Patient encounter procedure [...] Start: 04-24-2024 End: 04-24-2024 ambulatory NAHOMY CARCAMO Facility:[facility] Start: 04-24-2024 End: 04-24-2024 ambulatory NAHOMY CARCAMO Facility:[facility] Start: 04-24-2024 End: 04-24-2024 Patient encounter procedure [...] Medicine Start: 04-18-2024 Telephone encounter Lulú ochoa APRN.CNP Work Phone: [facility] Comment on above: PEAC; Care Coordinat ion Start: 04-16-2024 Telephone encounter Fv Ob Mfm Work Phone: Maternal Medicine Start: 04-04-2024 End: 04-04-2024 ambulatory [facility] Start: 03-24-2024 End: 03-24-2024 ambulatory [facility] Start: 03-22-2024 End: 03-22-2024 ambulatory [facility] Start: 03-13-2024 End: 03-13-2024 ambulatory [facility] Start: 02-05-2024 End: 02-06-2024 Emergency department patient visit KARIME [facility] Start: 02-05-2024 End: 02-05-2024 Emergency department patient visit KARIME [facility] Start: 02-05-2024 End: 02-06-2024 Emergency department patient visit KARIME Hutton [facility] Start: 01-16-2024 End: 01-16-2024 ambulatory [facility] Start: 01-16-2024 End: 01-16-2024 Office outpatient visit 15 minutes Kathryn Nettles MD Work Phone: [facility]icians Obstetrics/Gynecol ogmary Comment on above: Condyloma (Primary D x); HPV (human papilloma virus) anogenital infection Start: 01-10-2024 End: 01-11-2024 ambulatory [facility] Start: 12-07-2023 End: 12-07-2023 ambulatory AC MARIEE [facility] Start: 12-07-2023 End: 12-07-2023 Office consultation new/estab patient 40 min Ac Mariee MD Work Phone: Maternal- Medicine at [facility] Comment on above: Hydronephrosis of le ft kidney; Chronic renal impairment, stage 3 (moderate), unspecified whether stage 3a or 3b CKD ([facility]) Start: 11-24-2023 Encounter for gyneco logical examination (general) (routine) without abnormal findings Catrina Tejeda LPN [facility] Start: 11-24-2023 Orders Only Catrina Tejeda LPN [facility] [place] Comment on above: Cervical smear, as p art of routine gynecological examination (Primary Dx) Start: 11-23-2023 Chart abstracting Ac eldridge MD Work Phone: Maternal- Medicine at [facility] Start: 11-19-2023 Telephone encounter Nina ortiz APRN-ADDIE Work Phone: [facility]Gy[facility]col ogy Start: 11-16-2023 Telephone encounter Nina janemary GAS PUMP ATTENDANT-CNM Work Phone: [facility] Start: 11-15-2023 End: 11-15-[address] [facility] Start: 11-15-2023 End: 11-15-2023 ambulatory [facility] Start: 11-15-2023 Encounter for gyneco logical examination (general) (routine) without abnormal findings [facility] Start: 11-15-2023 End: 11-15-2023 Patient encounter status Kathryn Nettles MD Work Phone: [facility] Start: 11-15-2023 End: 11-15-2023 Periodic preventive med est patient 18-39 yrs Kathryn Nettles MD Work Phone: [facility]icians Obstetrics/Gynecol ogy Comment on above: Smear, vaginal, as p art of routine gynecological examination (Primary Dx); Screening for STD (sexually transmitted disease); Encounter for gynecological examination without abnormal finding Start: 11-15-2023 End: 11-15-2023 [facility] Start: 11-15-2023 Encounter for gyneco logical examination (general) (routine) without abnormal findings [facility] Start: 11-08-2023 Telephone encounter Pau Castillo in Maternal- Medicine at [facility] Start: 11-07-2023 End: 11-07-2023 ambulatory [facility] Start: 11-07-2023 End: 11-07-2023 Office outpatient new 30 minutes Kathryn Nettles MD Work Phone: [facility] Obstetrics/Gynecol ogmary Comment on above: Hydronephrosis of le ft kidney (Primary Dx); Chronic renal impairment, stage 3 (moderate), unspecified whether stage 3a or 3b CKD ([facility]); Irregular bleeding Start: 10-06-2023 Telephone encounter Paulina Renninger [facility] Surgeons Start: 10-04-2023 End: 10-04-2023 Emergency department patient visit APURVA ENGLE [facility] Start: 06-16-2023 End: 06-16-2023 [facility] Start: 03-14-2023 End: 03-14-2023 ambulatory JACK BENDER [...] End: 06-06-2022 Emergency department patient visit APURVA BERRIOSWVPranay [facility] Start: 06-06-2022 End: 06-06-2022 Emergency department patient visit Markell Fernando DO Work Phone: [facility] ED Comment on above: Abdominal cramps (Pr imary Dx); Vaginal spotting; Acute cystitis with hematuria Start: 09-14-2021 End: 09-14-2021 Subsequent hospital visit by physician Lex Willson MD Work Phone: [facility] Start: 08-18-2021 End: 08-20-2021 Subsequent hospital visit by physician Stv Us Ge Xd [facility] Ultrasound Comment on above: Neurogenic bladder; Pelviectasis of kidney; Mitrofanoff appendicovesicostomy present (HCC) Start: 02-18-2021 End: 02-20-2021 Subsequent hospital visit by physician Stv Us Ge Xd Clear [facility] Ultrasound Comment on above: Pelviectasis of kidn ey; Neurogenic bladder Start: 02-18-2021 End: 02-18-2021 Subsequent hospital visit by physician Apurva Engle DO Work Phone: [facility] DO[facility] Comment on above: CRI (chronic renal i nsufficiency), unspecified stage Start: 11-25-2020 End: 11-25-2020 Subsequent hospital visit by physician Ginny TALBERTV Laboratory Comment on above: CRI (chronic renal i nsufficiency), unspecified stage Start: 07-23-2020 End: 07-23-2020 Subsequent hospital visit by physician Ginny TALBERTVZ Laboratory Comment on above: CRI (chronic renal i nsufficiency), unspecified stage Start: 05-28-2020 End: 05-28-2020 Subsequent hospital visit by physician Moisés Peds Echo Rm 1 [facility] Peds Echo Comment on above: Arrived Start: 04-23-2020 End: 04-23-2020 Subsequent hospital visit by physician Ginny TALBERT Laboratory Comment on above: Hydronephrosis of le ft kidney; Chronic renal impairment, unspecified CKD stage Neurogenic bladder Start: 03-25-2020 End: 03-25-2020 Subsequent hospital visit by physician Amelia Rich Work Phone: [facility] Start: 03-21-2020 End: 03-26-[address] [facility] Start: 03-21-2020 End: 03-25-2020 Subsequent hospital visit by physician Denisse Arredondo Pat Screening Schedule [facility] Start: 11-05-2019 End: 11-05-2019 Subsequent [...] End: 07-07-2017 Patient encounter status Paulina Cassidy [facility] Procedures Date Procedure Procedure Detail Performing Clinician Start: 06-28-2024 Us preg uterus after 1st trimest 10/17 gestation Jose Maria Amador MD Work Phone: Start: 05-30-2024 Urnls dip stick/tabl et rgnt non-auto w/o micrscp Judith Campos MD Work Phone: Start: 05-30-2024 Us preg uterus after 1st trimest 10/17 gestation Nahomy Carcamo PA-C Work Phone: Start: [...] Speci men Type: BLOOD SPECIMEN Ordering Facility: [facility] Address: [address] [place] [address] Performed By: #### T SPN #### CC MAIN BLOOD B[facility] CLNY [id number] [address] [place], [place] [id number] [place] Start: 04-24-2024 Iadna chlamydia trachomatis amplified probe tq Nahomy Carcamo PA-C Work Phone: Start: 11-15-2023 Adult depression scr eening assessment Kathryn Nettles MD Work Phone: Start: 11-15-2023 Microscopic observat ion [Identifier] in Cervix by Cyto stain Nina Russell APRN-CNM Work Phone: Start: 11-07-2023 Urine test visual color cmprsn meths Kathryn Nettles MD Work Phone: Start: 06-06-2022 Antibody screen Markell quezada DO Work Phone: Start: 06-06-2022 Urinalysis microscop ic only Markell Fernando DO Work Phone: Start: 06-06-2022 Urine test visual color cmprsn meths Markell Fernando DO Work Phone: Start: 06-06-2022 Basic metabolic pane l calcium total Markell Fernando DO Work Phone: Start: 06-06-2022 Hepatic function panel Markell Fernando DO Work Phone: Start: 09-14-2021 Urine test visual color cmprsn meths Lex Willson MD Work Phone: Start: 08-18-2021 Us retroperitoneal r eal time w/image complete Lex Willson MD Work Phone: Start: 02-18-2021 Us retroperitoneal r eal time w/image complete Debbie Desai APRN - CHASSIS ENGINEER Work Phone: Start: 02-18-2021 Urine test visual color cmprsn meths Nikko Deo Bell MD Work Phone: Start: 11-25-2020 Blood count complete auto&auto difrntl wbc Nikko Bell Work Phone: Start: 11-25-2020 Comprehensive metabo lic panel Nikko Bell Work Phone: Start: 07-23-2020 Assay of parathormone Nikko Aguirrekike Work Phone: Start: 07-23-2020 Assay of phosphorus inorganic M Deo Bell Work Phone: Start: 07-23-2020 Blood count complete auto&auto difrntl wbc Nikko Frederickabelino Work Phone: Start: 07-23-2020 Comprehensive metabo lic panel Nikko Rodriguezkatheryn Work Phone: Start: 07-23-2020 Prealbumin Nikko sal Work Phone: Start: 05-28-2020 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 Dioni Donnelly Work Phone: Start: 04-23-2020 Basic metabolic pane l calcium total Nikko Bell Work Phone: Start: 04-23-2020 Blood count complete auto&auto difrntl wbc Nikko Frederickabelino Work Phone: Start: 04-23-2020 Cyanocobalamin vitam in b-12 Amelia Kal Rich Work Phone: Start: 03-25-2020 Urine test visual color cmprsn meths Amelia Kal Rich Work Phone: Start: 03-21-2020 COVID-19 SUNITAYAZ CAAL GEREMIAS Start: 03-21-2020 COVID-19 BlairRadha epstein Work Phone: Start: 11-05-2019 Comprehensive metabo lic panel Nikko Deo Bell MD Work Phone: Start: 10-03-2019 Complete tthrc echo congenital cardiac anomaly Dioni Donnelly MD Work Phone: H/O: surgery H/O abdominal surgery Dunia Angeles MD Work Phone: Plan of Treatment Date Care Activity Detail Author Start: 2062 RSV Vaccine (1 - 1-dose 60+ series) RSV Vaccine (1 - 1-dose 60+ series) [facility] Start: 11-15-2026 Screening for malignant neoplasm of cervix Pap Smear [facility] Start: 06-18-2025 Creatinine measurement Serum Creatinine [facility] Start: 04-24-2025 GC (Gonorrhea) Screening (18-24) GC (Gonorrhea) Screening (18-24) [facility] Start: 04-24-2025 Screening for Chlamydia trachomatis Chlamydia Screening (18-) [facility] Start: 04-17-2025 Creatinine measurement Serum Creatinine [facility] Start: 01-15-2025 Adult BMI Screening Adult BMI Screening [facility] Start: 01-15-2025 Tobacco Screening Tobacco Screening [facility] Start: 12-07-2024 Adult BMI Screening Adult BMI Screening [facility] Start: 12-07-2024 Tobacco Screening Tobacco Screening [facility] Start: 11-15-2024 Adult BMI Screening Adult BMI Screening [facility] Start: 11-15-2024 Depression Screening Depression Screening [facility] Start: 11-15-2024 Screening for Chlamydia trachomatis Chlamydia Screening [facility] Start: 11-15-2024 Tobacco Screening Tobacco Screening [facility] Start: 11-07-2024 Adult BMI Screening Adult BMI Screening [facility] Start: 11-07-2024 Tobacco Screening Tobacco Screening [facility] Start: 10-04-2024 Tobacco Screening Tobacco Screening [facility] Start: 09-17-2024 RSV Vaccine (1 - Risk 1-dose series) RSV Vaccine (1 - Risk 1-dose series) [facility] Start: 08-25-2024 End: 08-25-2024 Patient encounter procedure 08/25/2024 10:30 AM EST Routine Office Visit Maternal Medicine [address] [place] [address] 28 week growth Maternal Medicine Comment on above: 28 week growth Start: 08-10-2024 End: 08-10-2024 Patient encounter procedure CARD INFECTION CONTROL RN MFM MAIN Comment on above: COB appointment New cardio ob Start: 08-10-2024 End: 08-10-2024 Patient encounter procedure 08/10/2024 10:20 AM EDT Office Visit Cardiology [address] [place] [address] [facility] Card[facility] Comment on above: [facility] Start: 07-24-2024 End: 07-24-2024 Patient encounter procedure 07/24/2024 2:00 PM EDT Routine Office Visit Obstetrics/Gynecology [address] [place] [address] Judith Campos MD [address] [place] [address] [id number] 4 week ob Obstetrics/Gyneco logy Comment on above: 4 week ob Start: 07-23-2024 End: 07-23-2024 Patient encounter procedure Maternal Fet al Medicine Comment on above: Growth Est visit Start: 07-14-2024 Adult BMI Screening Adult BMI Screening [facility] Start: 06-28-2024 End: 06-28-2024 Patient encounter procedure Maternal Fet al Medicine Comment on above: Anatomy follow up Start: 06-20-2024 End: 06-20-2024 Patient encounter procedure 06/20/2024 2:00 PM EDT Routine Office Visit Maternal Medicine [address] [place] [id number] Anatomy Maternal Medicine Comment on above: Anatomy Start: 06-17-2024 Covid-19 Vaccine ( season) Covid-19 Vaccine () [facility] Start: 06-17-2024 Influenza vaccination [facility] Start: 06-15-2024 End: 06-15-2024 ambulatory 06/15/2024 8:[address] [facility] [address] [address] Karely Nunez MD [facility] [place] [address] neurogenic bladder Urology Comment on above: neurogenic bladder Start: 05-30-2024 End: 08-29-2024 ALPHA FETOPRO MATERNAL ALPHA FETOPRO MATERNAL Lab Routine 16 weeks gestation of Expected: 05/30/2024, Expires: 08/29/2024 [facility] Work Phone: Comment on above: Expected: 05/30/2024, Expires: 4 Start: 05-30-2024 End: 05-30-2025 OBSTETRIC ULTRASOUND [facility]I OBSTETRIC ULTRASOUND [facility] Anc Imaging Routine Supervision of high risk , antepartum screening for malformation using ultrasonics 16 weeks gestation of Expected: 05/30/2024, Expires: 05/30/2025 [facility] Work Phone: Comment on above: Expected: 05/30/2024, Expires: 5 Start: 05-30-2024 End: 05-30-2024 Patient encounter procedure Obstetrics/G yneco logy Comment on above: - Received a REFER A PATIENT REQUEST ALANNA Quiroz's office referring the patient to be seen in obgyn for Encounter for care in first trimester of first Adolescent idiopathic scoliosis, thoracic region Hydronephrosis of left kidney Mitrofanoff appendicovesicostomy present ([facility] . Referral and/or order can be found in Appointment Desk 04/10/2024. 16 week early anatom y Start: 05-09-2024 End: 05-09-2025 OBSTETRIC ULTRASOUND WHI OBSTETRIC ULTRASOUND [facility] Anc Imaging Routine History of maternal hypertension Expected: 05/09/2024, Expires: 05/09/2025 [facility] Comment on above: Expected: 05/09/2024, Expires: Start: 05-07-2024 End: 05-07-2024 Patient encounter procedure Maternal Fet al Medicine Comment on above: Nuchal consult per Start: 04-24-2024 End: 07-24-2024 Chromosome 21 trisomy [Presence] in Blood or Tissue by Cytogenetics [facility] Comment on above: Expected: 04/24/2024, Expires: Start: 04-24-2024 End: 04-24-2025 NUCHAL TRANSLUCENCY WHI NUCHAL TRANSLUCENCY WHI Anc Imaging Routine Supervision of high risk , antepartum Expected: 04/24/2024, Expires: 04/24/2025 [facility] Comment on above: Expected: 04/24/2024, Expires: Start: 04-24-2024 End: 04-24-2025 OBSTETRIC ULTRASOUND WHI OBSTETRIC ULTRASOUND WHI Anc Imaging Routine Supervision of high risk , antepartum Expected: 04/24/2024, Expires: 04/24/2025 [facility] Work Phone: Comment on above: Expected: 04/24/2024, Expires: Start: 04-24-2024 End: 04-24-2024 Patient encounter procedure 04/24/2024 8:45 AM EDT Initial Office Visit Obstetrics/Gynecology [address] [place] [address] Nahomy Carcamo PA-C [address] [place] [address] - Received a REFER A PATIENT REQUEST from ALANNA CUMMINGS's office referring the patient to be seen in obgyn for Encounter for care in first trimester of first Adolescent idiopathic scoliosis, thoracic region Hydronephrosis of left kidney Mitrofanoff appendicovesicostomy present ([facility]) . Referral and/or order can be found in Appointment Desk 04/10/2024. Obstetrics/Gyneco logy Comment on above: - Received a REFER A PATIENT REQUEST fro ALANNA Martin's office referring the patient to be seen in obgyn for Encounter for care in first trimester of first Adolescent idiopathic scoliosis, thoracic region Hydronephrosis of left kidney Mitrofanoff appendicovesicostomy present ([facility]) . Referral and/or order can be found in Appointment Desk 04/10/2024. Start: 03-13-2024 End: 03-13-2024 Patient encounter procedure 03/13/2024 2:45 PM EDT Office Visit [facility] [address] [place] [address] [place] [phone] Hunter Villarreal MD [address] [place] [address] [facility] Start: 02-06-2024 End: 02-06-2024 Patient encounter procedure 02/06/2024 10:30 AM EDT Procedure visit [facility] Ob[facility]/Gynecology [address] [place] [phone] Kathryn Nettles MD [address] [place], [place] [id number] [facility] Obstetrics/Gyneco logy Start: 01-18-2024 Screening for Chlamydia trachomatis Chlamydia Screening [facility] Start: 12-07-2023 End: 12-07-2023 Patient encounter procedure 12/07/2023 9:00 AM EST Office Visit Maternal- Medicine at [facility] [address] [place] [address] Ac Mariee MD [address] [place] [address] M[facility]- [facility] at [facility] Start: 11-15-2023 End: 11-15-2023 Patient encounter procedure 11/15/2023 10:00 AM EST Office Visit [facility]necology [address] [place] [phone] Kathryn Nettles MD [address] [place], [place] [phone] [facility] Obstetrics/Gyneco logy Start: 11-07-2023 DTaP,Tdap and Td Vaccines (7 - Td or Tdap) DTaP,Tdap and Td Vaccines (7 - Td or Tdap) [facility] Start: 11-07-2023 DTaP/Tdap/Td vaccine (7 - Td or Tdap) DTaP/Tdap/Td vaccine (7 - Td or Tdap) [facility] Start: 11-07-2023 DTaP/Tdap/Td vaccine (7 - Td) DTaP/Tdap/Td vaccine (7 - Td) [facility] Work Phone: Start: 11-07-2023 Urine microalbumin profile DTaP,Tdap,Td Vaccine (7 - Td or Tdap) [facility] Start: 10-17-2023 Behavioral Health Screening Behavioral Health Screening [facility] Start: 2023 Screening for malignant neoplasm of cervix [facility] Start: 06-17-2023 COVID-19 Vaccine () COVID-19 Vaccine () [facility] Start: 06-17-2023 Influenza vaccination Influenza Vaccine [facility] Start: 06-17-2022 Influenza vaccination Flu vaccine (#1) [facility] Start: 02-15-2022 End: 02-15-2022 Patient encounter procedure [facility] Nephrology Spec Start: 09-14-2021 End: 09-14-2021 URETEROSCOPY STONE REMOVAL LASER URETEROSCOPY STONE REMOVAL LASER NEUROGENIC BLADDER, BLADDER STONE 09/14/2021 1:51 PM EST [facility] Start: 08-31-2021 COVID-19 Vaccine (3 - Booster for Moderna series) COVID-19 Vaccine (3 - Booster for Moderna series) [facility] Start: 06-17-2021 Influenza vaccination [facility] Start: 05-28-2021 End: 05-28-2021 Patient encounter procedure 05/28/2021 Office Visit Pediatric Cardiology Katia Mei MD [address] [facility] [address] [place], [place] [phone] [facility] [employer] Senior Telecommunications Engineer Start: 02-18-2021 End: 02-18-2021 Appointment [facility] Start: 11-28-2020 End: 11-28-2020 Office Visit 11/28/2020 Office Visit Pediatric Cardiology Katia Mei MD [address] [facility] [address] [place], [place] [phone] [facility] [employer] Senior Telecommunications Engineer Start: 11-25-2020 End: 11-25-2020 Office Visit 11/25/2020 Office Visit Pediatric Nephrology Nikko Bell MD [address] [facility] [place] [address] [phone] [facility] Pediatric Nephrology Spec Start: 10-01-2020 End: 10-01-2020 Office Visit 10/01/2020 Office Visit Pediatric Cardiology Dioni Donnelly MD [address] [facility] [address] [place], [place] [phone] [facility] [employer] Senior Telecommunications Engineer Start: 07-29-2020 End: 07-29-2020 Office Visit 07/29/2020 Office Visit Pediatric Nephrology Nikko Bell MD [address] [facility] [address] [place], [place] [phone] [facility] Pediatric Nephrology Spec Start: 2020 Adult BMI Follow Up Plan Adult BMI Follow Up Plan [facility] Start: 2020 Annual PCP Team Chronic Disease Visit Annual PCP Team Chronic Disease Visit [facility] Start: 2020 Anxiety Screening Anxiety Screening [facility] Start: 2020 Depression Screening Depression Screening [facility] Start: 2020 GC (Gonorrhea) Screening (18-24) GC (Gonorrhea) Screening (18-24) [facility] Start: 2020 Hepatitis C screening [facility] Start: 2020 HIV screening HIV Screening [facility] Start: 2020 Screening for Chlamydia trachomatis Chlamydia Screening (18-24) [facility] Start: 06-17-2020 Influenza vaccination Flu vaccine (#1) [facility] [place] Start: 05-28-2020 End: 05-28-2020 Office Visit 05/28/2020 Office Visit Pediatric Cardiology Dioni Donnelly MD [address] [facility] [address] [place], [place] [phone] [facility] [employer] Senior Telecommunications Engineer Start: 04-24-2020 Creatinine monitoring Creatinine monitoring [employer] Phone: Start: 04-24-2020 Potassium monitoring Potassium monitoring [employer] Phone: Start: 03-24-2020 End: 03-24-2020 Patient encounter procedure [facility] [place] [facility] Start: 10-15-2019 End: 10-15-2019 Patient encounter procedure 10/15/2019 Office Visit Pediatric Nephrology Nikko Bell MD [address] [facility] [address] [place], [place] [phone] [facility] Pediatric Nephrology Spec Start: 06-17-2019 Influenza vaccination Flu vaccine (#1) [employer] Phone: Start: 2018 Chlamydia screen Chlamydia screen [employer] Phone: Start: 2018 COVID-19 Vaccine (1) COVID-19 Vaccine (1) [employer] Phone: Start: 2018 Meningococcal (ACWY) Vaccine (1 - 2-dose series) Meningococcal (ACWY) Vaccine (1 - 2-dose series) [employer] Phone: Start: 2018 Screening for Chlamydia trachomatis [facility]lam[facility] screen [facility] Start: 2017 HIV screen HIV screen [facility] Phone: Start: 2017 HIV screening HIV screen [facility] [employer] Start: 2016 Peds To Adult Transition Annual Assessment Peds To Adult Transition Annual Assessment [facility] Start: 2014 Depression Screen Depression Screen [facility] [employer] Start: 2014 Depression Screening Depression Screening [facility] Start: 2014 Peds To Adult Transition Initial Discussion Peds To Adult Transition Initial Discussion [facility] Start: 2013 HPV vaccine (1 - Female 2-dose series) HPV vaccine (1 - Female 2-dose series) [employer] Phone: Start: 2009 DTaP/Tdap/Td vaccine (1 - Tdap) DTaP/Tdap/Td vaccine (1 - Tdap) [facility] Phone: Start: 2008 Pneumococcal vaccination Pneumococcal Vaccine (1 of 2 - PCV) [facility] Start: 2003 Hepatitis A vaccine (1 of 2 - 2-dose series) Hepatitis A vaccine (1 of 2 - 2-dose series) [employer] Phone: Start: 2003 Measles,Mumps,Rubella (MMR) vaccine (1 of 2 - Standard series) Measles,Mumps,Rubella (MMR) vaccine (1 of 2 - Standard series) [employer] Phone: Start: 2003 Varicella Vaccine (1 of 2 - 2-dose childhood series) Varicella Vaccine (1 of 2 - 2-dose childhood series) [employer] Phone: Start: 2002 Polio vaccine 0-18 (1 of 3 - 4-dose series) Polio vaccine 0-18 (1 of 3 - 4-dose series) [employer] Phone: Start: 2002 Hepatitis B vaccine (1 of 3 - 3-dose primary series) Hepatitis B vaccine (1 of 3 - 3-dose primary series) [employer] Phone: Start: 2002 Hepatitis C screening Hepatitis C screen [employer] Start: 2002 Tobacco Counseling Tobacco Counseling [email or web address] Bacteria identified in Urine by Culture URINE CULTURE Microbiology Routine Chronic renal impairment, unspecified CKD stage 05/07/2024 3:08 PM EDT [facility] Bacteria identified in Urine by Culture URINE CULTURE Microbiology Routine Recurrent urinary tract infection affecting in second trimester Ordered: 06/28/2024 [facility] Work Phone: Comment on above: Ordered: 06/28/2024 End: 11-15-2024 Chlamydia/GC by PCR [employer]in[employer] fluid Chlamydia/GC by PCR [employer]inPrep fluid Microbiology Routine Screening for STD (sexually transmitted disease) 1 Occurrences starting 11/15/2023 until 11/15/2024 [email or web address] Comment on above: 1 Occurrences starting 11/15/2023 until 11/15/2024 CREATININE, 24 HOUR URINE CREATI NINE, 24 HOUR URINE Lab Routine Chronic renal impairment, unspecified CKD stage Ordered: 05/07/2024 [facility] Comment on above: Ordered: 05/07/2024 Culture, [facility] [place] Comment on above: Release Upon Ordering for 1 Occurrences starting 03/25/2020 End: 06-06-2022 Culture, Urine Culture, Urine Microbiology Routine Once for 1 Occurrences starting 06/06/2022 until 06/06/2022 [facility] Phone: Comment on above: Once for 1 Occurrences starting 06/06/20 22 until 06/06/2022 Culture, Urine Culture, Urine M icrobiology Routine 06/06/2022 12:46 AM EDT [facility] Phone: End: 04-23-2020 Cystatin C Cystatin C Lab Routine Neurogenic bladder 1 Occurrences starting 04/23/2020 until 04/23/2020 [facility] [place] Comment on above: 1 Occurrences starting 04/23/2020 until 04/23/2020 Cystatin C [employer] Phone: End: 11-05-2019 Cystatin C Cystatin C Lab Routine CRI (chronic renal insufficiency), unspecified stage 1 Occurrences starting 11/05/2019 until 11/05/2019 [employer] Phone: Comment on above: 1 Occurrences starting 11/05/2019 until 11/05/2019 End: 11-15-2024 Cytopathology procedure, preparation of smear, genital source Pap Smear Pathology and Cytology Routine Smear, vaginal, as part of routine gynecological examination 1 Occurrences starting 11/15/2023 until 11/15/2024 [employer] Phone: Comment on above: 1 Occurrences starting 11/15/2023 until 11/15/2024 End: 05-09-2025 ECHO ECHO Cardiology Routine Enlarged aorta (HCC) 1 Occurrences starting 05/09/2024 until 05/09/2025 [facility] Comment on above: 1 Occurrences starting 05/09/2024 until 05/09/2025 End: 11-07-2024 Follicle stimulating hormone Follicle stimulating hormone Lab Routine Irregular bleeding 1 Occurrences starting 11/07/2023 until 11/07/2024 [email or web address] Comment on above: 1 Occurrences starting 11/07/2023 until 11/07/2024 End: 11-24-2024 High Risk HPV w/Mandi High Risk HPV w/Mandi Lab Routine Cervical smear, as part of routine gynecological examination 1 Occurrences starting 11/24/2023 until 11/24/2024 [employer] Phone: Comment on above: 1 Occurrences starting 11/24/2023 until 11/24/2024 Human papilloma viru s 31+33+35+39+45+51+52+56+58+ 59+66+68 DNA [Presence] in Cervix by DADA with probe detection High risk HPV w/mandi Lab Routine Cervical smear, as part of routine gynecological examination 11/24/2023 9:34 AM EST [employer] Initiate Oxygen Ther apy Protocol Initiate Oxygen Therapy Protocol Respiratory Care Routine Daily until discontinued starting 03/25/2020 [facility] [place] Comment on above: Daily until discontinued starting 2019 End: 09-14-2021 Intermittent pulse oximetry Pulse Oximetry Spot Check Respiratory Care Routine One Time for 1 Occurrences starting 09/14/2021 until 09/14/2021 [employer] Work Phone: Comment on above: One Time for 1 Occurrences starting 08/18 until 09/14/2021 End: 11-07-2024 Luteinizing hormone Luteinizing hormone Lab Routine Irregular bleeding 1 Occurrences starting 11/07/2023 until 11/07/2024 [employer] Work Phone: Comment on above: 1 Occurrences starting 11/07/2023 until 11/07/2024 End: 10-03-2019 Miscellaneous Sendout 1 Miscellaneous Sendout 1 Lab Routine Neurogenic bladder Currarino syndrome Aortic root dilatation (HCC) 1 Occurrences starting 10/03/2019 until 10/03/2019 [employer] Phone: Comment on above: 1 Occurrences starting 10/03/2019 until 10/03/2019 Miscellaneous Sendout 1 Miscella neous Sendout 1 Lab Routine Neurogenic bladder Currarino syndrome Aortic root dilatation (HCC) 10/03/2019 4:28 PM EST [employer] Phone: End: 06-17-2025 OBSTETRIC ULTRASOUND WHI OBSTETRIC ULTRASOUND I Anc Imaging Routine Supervision of high risk , antepartum Once per month for 5 Occurrences starting 06/28/2024 until 06/17/2025 [facility] Work Phone: Comment on above: Once per month for 5 Occurrences startin g 06/28/2024 until 06/17/2025 Oxygen therapy [Mini mum Data Set] Initiate Oxygen Therapy Protocol Respiratory Care Routine Daily until discontinued starting 09/14/2021 [employer] Phone: Comment on above: Daily until discontinued starting 2020 Oxygen therapy [Mini mum Data Set] Initiate Oxygen Therapy Protocol Respiratory Care Routine Daily until discontinued starting 09/14/2021 [employer] Phone: Comment on above: Daily until discontinued starting 2020 Phase I & II - meter ed glucose Phase I & II - metered glucose Point of Care Testing Routine As Needed until discontinued starting 03/25/2020 [employer] [place], [place] Comment on above: As Needed until discontinued starting Phase I & II - meter ed glucose Phase I & II - metered glucose Point of Care Testing Routine As Needed until discontinued starting 09/14/2021 [employer] Phone: Comment on above: As Needed until discontinued starting End: 09-14-2021 POCT urine POCT urine Point of Care Testing STAT One Time for 1 Occurrences starting 09/14/2021 until 09/14/2021 [employer] Phone: Comment on above: One Time for 1 Occurrences starting 08/18 until 09/14/2021 End: 11-07-2024 Prolactin Prolactin Lab Routine Irregular bleeding 1 Occurrences starting 11/07/2023 until 11/07/2024 [email or web address] Comment on above: 1 Occurrences starting 11/07/2023 until 11/07/2024 Protein [Mass/time] in 24 hour Urine PROTEIN, 24 HOUR URINE Lab Routine Chronic renal impairment, unspecified CKD stage Ordered: 05/07/2024 [facility] Work Phone: Comment on above: Ordered: 05/07/2024 End: 11-07-2024 Thyroid profile includes TSH FT4 Thyroid profile includes TSH FT4 Lab Routine Irregular bleeding 1 Occurrences starting 11/07/2023 until 11/07/2024 [email or web address] Comment on above: 1 Occurrences starting 11/07/2023 until 11/07/2024 End: 09-14-2021 Urine , POCT Urine , POCT Point of Care Testing Routine One Time for 1 Occurrences starting 09/14/2021 until 09/14/2021 [employer] Phone: Comment on above: One Time for 1 Occurrences starting 08/18 until 09/14/2021 End: 11-15-2024 Vaginitis Panel PCR Vaginitis Panel PCR Microbiology Routine Screening for STD (sexually transmitted disease) 1 Occurrences starting 11/15/2023 until 11/15/2024 [facility] Comment on above: 1 Occurrences starting 11/15/2023 until 11/15/2024 Immunizations Immunization Date Immunization Notes Care Provider Jeffrey griffiths 03-31-2021 COVID-19, Moderna, Primary or Immunocompromised, PF, 100mcg/0.5mL [facility] [employer] Work Phone: 03-05-2021 COVID-19, Moderna, Primary or Immunocompromised, PF, 100mcg/0.5mL [facility] [employer] 09-24-2019 meningococcal B vacc ine, recombinant, OMV, adjuvanted [facility] [employer] Work Phone: 08-24-2019 influenza, injectabl e, quadrivalent, preservative free [facility] [employer] Phone: 08-24-2019 meningococcal B vacc ine, recombinant, OMV, adjuvanted [employer] [employer] Work Phone: 08-24-2019 meningococcal polysaccharide (groups A, C, Y and W-135) diphtheria toxoid conjugate vaccine (MCV4P) [employer] Phone: 08-24-2019 influenza virus vacc ine, unspecified formulation Paulina aCssidy [facility] 08-14-2018 influenza, injectabl e, quadrivalent, preservative free [facility] [employer] Work Phone: 10-04-2017 influenza, injectabl e, quadrivalent, preservative free [facility] [employer] Work Phone: 08-23-2016 Human Papillomavirus 9-valent vaccine [facility] [employer] Work Phone: 08-23-2016 influenza, injectabl e, quadrivalent, preservative free [facility] [employer] Work Phone: 11-11-2015 Human Papillomavirus 9-valent vaccine [facility] [employer] Work Phone: 07-24-2015 influenza virus vacc ine, whole virus Ginny Varela MD Work Phone: [facility] 11-07-2013 Human Papillomavirus 9-valent vaccine [facility] Phone: 11-07-2013 influenza, injectabl e, quadrivalent, preservative free [facility] Phone: 11-07-2013 meningococcal polysaccharide (groups A, C, Y and W-135) diphtheria toxoid conjugate vaccine (MCV4P) [facility] Phone: 11-07-2013 tetanus toxoid, redu mohit diphtheria toxoid, and acellular pertussis vaccine, adsorbed [facility] Phone: 07-22-2008 hepatitis A vaccine, pediatric/adolescent dosage, 2 dose schedule [facility] Phone: 12-18-2007 hepatitis A vaccine, pediatric/adolescent dosage, 2 dose schedule [facility] Phone: 12-18-2007 varicella virus vaccine [facility] Phone: 09-12-2006 diphtheria, tetanus toxoids and acellular pertussis vaccine [facility] Phone: 09-12-2006 influenza virus vacc ine, whole virus [facility] Work Phone: 09-12-2006 measles, mumps and rubella virus vaccine [facility] Phone: 09-12-2006 poliovirus vaccine, inactivated [facility] Phone: 10-12-2004 influenza virus vacc ine, whole virus [facility] Phone: 08-15-2003 diphtheria, tetanus toxoids and acellular pertussis vaccine, unspecified formulation [facility] Phone: 08-15-2003 haemophilus influenz ae type b vaccine, conjugate unspecified formulation [employer] Phone: 08-15-2003 measles, mumps and rubella virus vaccine [facility] [employer] Work Phone: 08-15-2003 varicella virus vaccine [facility] Phone: 04-25-2003 hepatitis B vaccine, pediatric or pediatric/adolescent dosage [facility] [employer] Work Phone: 02-13-2003 diphtheria, tetanus toxoids and acellular pertussis vaccine, unspecified formulation [facility] [employer] Work Phone: 02-13-2003 haemophilus influenz ae type b vaccine, conjugate unspecified formulation [employer] Phone: 02-13-2003 pneumococcal conjuga te vaccine, 7 valent [facility] [employer] Work Phone: 02-13-2003 poliovirus vaccine, unspecified formulation [employer] Phone: 2002 diphtheria, tetanus toxoids and acellular pertussis vaccine, unspecified formulation [employer] [employer] Phone: 2002 haemophilus influenz ae type b vaccine, conjugate unspecified formulation [employer] Phone: 2002 pneumococcal conjuga te vaccine, 7 valent [facility] [employer] Work Phone: 2002 poliovirus vaccine, unspecified formulation [facility] Phone: 2002 diphtheria, tetanus toxoids and acellular pertussis vaccine, unspecified formulation [facility] [employer] Work Phone: 2002 haemophilus influenz ae type b vaccine, conjugate unspecified formulation [employer] Phone: 2002 hepatitis B vaccine, pediatric or pediatric/adolescent dosage [facility] [employer] Work Phone: 2002 pneumococcal conjuga te vaccine, 7 valent [facility] [employer] Work Phone: 2002 poliovirus vaccine, unspecified formulation [facility] [employer] Work Phone: 2002 hepatitis B vaccine, pediatric or pediatric/adolescent dosage [facility] [employer] Work Phone: Payers Date Payer Category Payer [employer] ( and others) xxxxxxxxxxx [id number] 2017 [employer] ( and others) [id number] 2014 Unknown [facility] xxxxxxxxxxxx 2014-Present [phone] [place] [address] [id number] 2003 Medicaid [id number] 2002 Unknown [id number] 2.16.840.1.780172.3.579.2 .176 2002 Unknown [id number] 2.16.840.1.602427.3.579.2 .593 2002 Unknown [id number] 2.16.840.1.504410.3.579.2 .593 2002 Unknown [id number] 2.16.840.1.476856.3.579.2 .593 2002 Unknown [id number] 2.16.840.1.142910.3.579.2 .593 2002 Unknown [id number] 2.16.840.1.495397.3.579.2 .593 2002 Unknown [id number] 2.16.840.1.462873.3.579.2 .593 2002 Unknown [id number] 2.16.840.1.252883.3.579.2 .593 2002 Unknown [id number] 2.16.840.1.237972.3.579.2 .175 2002 Unknown [id number] 2.16.840.1.176824.3.579.2 .1286 2002 Unknown [id number] 2.16.840.1.005560.3.579.2 .1286 2002 Unknown [id number] 2.16.840.1.250923.3.579.2 .1286 2002 Unknown [id number] 2.16.840.1.056493.3.579.2 .1286 2002 Unknown [id number] 2.16.840.1.609416.3.579.2 .1286 2002 Unknown [id number] 2.16.840.1.567783.3.579.2 .1286 2002 Unknown [id number] 2.16.840.1.561080.3.579.2 .1286 2002 Unknown [id number] 2.16.840.1.693199.3.579.2 .1286 2002 Unknown [id number] 2.16.840.1.009493.3.579.2 .1286 2002 Unknown [id number] 2.16.840.1.155133.3.579.2 .1286 2002 Unknown [id number] 2.16.840.1.589573.3.579.2 .1286 2002 Unknown [id number] 2.16.840.1.949605.3.579.2 .1286 2002 Unknown [id number] 2.16.840.1.303800.3.579.2 .1286 2002 Unknown [id number] 2.16.840.1.316147.3.579.2 .1286 2002 Unknown [id number] 2.16.840.1.801280.3.579.2 .1286 2002 Unknown [id number] 2.16.840.1.780701.3.579.2 .1286 2002 Unknown [id number] 2.16.840.1.625235.3.579.2 .1286 1959 Unknown [id number] 1955 Unknown [id number] 2.16.840.1.785327.3.579.2 .173 Social History Date Type Detail Facility Start: 07-30-2013 End: 03-25-2020 Tobacco smoking status NHIS Never smoker [employer] Phone: Start: 03-25-2020 End: 06-06-2022 Alcohol intake Current non-drinker of alcohol (finding) [employer] Phone: Start: 2002 Sex Assigned At Not on file M [employer] Phone: Exposure to SARS-CoV -2 (event) Unable to assess [facility] [place] Start: 05-28-2020 End: 04-24-2024 Tobacco use and exposure Never used [employer] [facility] Start: 05-27-2022 End: 06-06-2022 Exposure to SARS-CoV-2 (event) Not sure [employer] Start: 12-23-2022 Tobacco smoking stat RUSTIS Occasional tobacco smoker [facility] History of tobacco use Cigarette Smoker P [facility] Start: 10-04-2023 End: 01-16-2024 Alcohol intake Current drinker of alcohol (finding) [facility] Start: 10-04-2023 End: 04-18-2024 History of Social function [facility] Start: 10-04-2023 End: 04-18-2024 Tobacco use panel [facility] Housing Instability Unknown [facility] Start: 2002 Sex Assigned At Female P [facility] Start: 06-16-2022 Gender identity Identifies as female gender (finding) [facility] Start: 09-19-2022 Sexual orientation Bisexual (finding ) [facility] Start: 11-07-2023 Alcohol Comment once a month [facility] Start: 11-23-2023 Alcohol Comment occasional [facility] Tobacco smoking stat [facility] Tobacco smoking consumption unknown [facility] Start: 04-24-2024 Tobacco smoking stat [facility] Smokes tobacco daily [facility] Start: 04-24-2024 End: 05-30-2024 Alcohol intake Ex-drinker (finding) [facility] Start: 04-24-2024 Tobacco Comment [facility] Start: 02-20-2024 [facility] Medical Equipment Procedure Code Equipment Code Equipment Origin al Text Equipment Identifier Dates Rti Frz C/C Chip s 30cc - [id number] - [id number] Start: 07-07-2017 Comment on above: Description: 07/18/17 Added Zero to Serial no. [id number]) to link with Smart [employer] Tissue Tracking System. TWing RN Ozzy Spnl Meagan 600 mm 6mm Cmpr Ti - [id number] Start: 07-07-2017 Blck Spnl Meagan 3 - [id number] Start: 07-07-2017 Meagan Uni Redux Screw 5.5 X 35 [id number] Start: 07-07-2017 Goals Date Patient Goal Desired Activity /State Personal health goal Clinical Notes 09-14-2021 to 06-28-2024 Quick Notes - Dunia Angeles MD - 06/28/2024 12:14 PM EDTPrenatal Quick Notes - Dunia Angeles MD - 06/28/2024 12:14 PM Karely Elizabeth MD - 06/15/2024 8:00 AM EDT Note Date & Type Note Facility 06-28-2024 Progress note Formatting of t his note is different from the original. 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 She also has scoliosis s/p spinal fusion, anal stricture s/p anoplasty, and aortic root dilation. She reports overall feeling well today but is having difficulty sleeping at night and reports that sometimes she feels very congested at night and can only breathe/sleep with a fan actively blowing on her face. She also reports that sometimes when lying on her side she feels like her heart is racing. Denies cramping, vaginal bleeding, abnormal discharge. Already feeling robust movement. She stopped taking her macrobid in the setting of a pharmacy issue (was told that prescription was completed but it is written for the duration of the ). She subsequently developed UTI symptoms and is currently completed a course of ampicillin after 06/18 culture demonstrated 10-50K of enterococcus. Objective: Pulse BP Resp O2 Sat Temp Pain 68 103/68 Height Weight BMI 5' 2.01 (157.5 cm) 106 lb 11.2 oz (48.4 kg) 19.51 Physical Exam: Gen: Well-appearing, no acute distress CV/Resp: Non-labored breathing on room air Abd: Gravid, non-tender Ext: Moving spontaneously, no significant edema bilaterally FHTs: + on anatomy scan Medication Review: Current Outpatient Medications on File Prior to Visit Medication Sig ampicillin (PRINCIPEN) 500 mg capsule FOLIC ACID ORAL Take by mouth. blood pressure test kit-small (BLOOD PRESSURE MONITOR SM CUFF) 1 Each once daily as needed. aspirin, enteric coated (ECOTRIN LOW STRENGTH) 81 mg EC tablet Take 1 tablet by mouth once daily. Problem-Based Assessment and Plan: OB Episode Problems ICD-10-CM Obstetrics Aortic root dilation (HCC) I77.810 Overview Addendum 06/29/2024 12:55 PM by Dunia Angeles MD Omid has also been diagnosed with a borderline dilated aortic root. She follows with a senior telecommunications engineer in [place] (Dr. Katia Mei) and her last echo 12/2023 demonstrated borderline dilated aortic root (31 mm, Z-score 2.6). [ ] echo 22 weeks - as of 06/28 this is not yet scheduled [ ] Cardio-OB, echo 08/10/2024 [ ] Genetics/cardiac genetics - as of 06/28 consult is ordered but this is not yet scheduled 06/28/24 - Patient reports some PM SOB/sensation of congestion and heart racing - will investigate ability to obtain echo and/or ZioPatch sooner than scheduled cardioOB appt ASCUS with positive high risk HPV cervical R87.610, R87.810 Overview Signed 04/27/2024 11:00 AM by Nahomy Carcamo PA-C 11/15/2023 - repeat 10/2024 or PP Chronic renal impairment N18.9 Overview Addendum 06/29/2024 12:25 PM by Dunia Angeles MD Omid's chart is notable for prior diagnosis of RTA and stage III CKD, which is likely secondary to obstructive uropathy. On available records, her BUN and GFR have recently been normal and her Cr is currently high-normal. Serum Cr was 0.94 on 04/17/24. [facility] records demonstrate a baseline serum Cr in the 1.1 range. Her earliest available labs in [facility] (2010) demonstrate azotemia.She has not had a recent assessment of urine protein. She sees a principal archaeologist at the [facility], Dr. Lor Lozano. [x] 24 hr urine (ordered 05/07) - 0.35 g [ ] 2nd tri CMP - plan for blood work at 24 week visit [ ] 3rd tri CMP History of maternal hypertension Z87.59 Overview Addendum 06/29/2024 12:55 PM by Dunia Angeles MD Omid also reports a history of hypertension in adolescence which was likely in the setting of worse kidney function. She does not have a BP cuff at home and has not been on antihypertensive medication. 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 [x] 16, 20 week anatomy normal Mitrofanoff appendicovesicostomy present ([facility]) Z93.52 Overview Addendum 06/29/2024 12:30 PM by Dunia Angeles MD Omid developed a neurogenic bladder in pocketed spring assembler, presumably as a result of the original SCT surgery. She also had significant bilateral VUR and hydronephrosis. She underwent a bilateral ureteral reimplantation surgery with bladder augmentation/creation of Mitrofanoff fistula. She does not leak any urine urethrally and voids entirely by Mitrofanoff straight catheterization through the stoma in her anterior abdomen/pelvis. She follows with a urologist at [facility] in [place], and [facility]. With regard to Omid's reconstructed bladder, we [...] Reprod Med 2005;51:9, Journal of Urology Sep 2020). On the other hand, urgent/unplanned could be very complicated in this setting, and the risks of potential unplanned could outweigh the benefit of a potential vaginal delivery if successful, so planned is also reasonable. Regardless, it will be important to coordinate care with urology in the event that is required, as a urologist should be present in the OR. [ ] Referral to urology (reconstructive) to establish care at [facility] for delivery planning - missed appt and needs to be re-scheduled, message sent to Karely Nunez MD [ ] Delivery planning (timing, mode) pending further progress with multidisciplinary involvement (urology, possible gen surg) Supervision of high risk , antepartum O09.90 Overview Addendum 06/29/2024 12:28 PM by Dunia Angeles MD Care Checklist [ ] [facility] co-management visits at 20, 28, 34 weeks --> Transfer care to [facility] for easier coordination Vaccines: [] Flu vaccine [] RSV vaccine 32 0/7 - 36 6/7 (Jun - Nov) [] COVID vaccine [] TDaP 27-36 First trimester: [x] Dating US [x] 1st tri labs [x] Pap smear [x] NIPT screening [x] First trimester anatomy scan Second trimester: [x] Anatomy scan [] Mode of Delivery [] Feeding - [] Pump ordered [] Diabetes screen [] CBC, RPR Third trimester (28-30 weeks): [] Consent [] Contraception - [] Doughnut Dough Mixer Third trimester (36-40 weeks): [] GBS [] Presentation - [] Scheduled [] yes - Hibiclens, pre-op instructions, CBC, T&S ordered [] no [] H&P surveillance [] Monthly growth US starting at 24 weeks [] Weekly testing beginning at 32 weeks Generalized anxiety disorder F41.1 Overview Signed 05/09/2024 1:07 PM by Dunia Angeles MD Previously on Lexapro. Currently asymptomatic. Current Assessment & Plan 06/28/2024 Routine Office Visit Written 06/29/2024 12:29 PM by Dunia Angeles MD Asymptomatic again today. H/O abdominal surgery Z98.890 Overview Signed 05/09/2024 1:09 PM by Dunia Angeles MD Omid describes that she experienced several bowel obstructions which required surgical repair in childhood, both thought to be secondary to scar tissue from her SCT surgery. She also describes anal stricture and that she had an anoplasty surgery in pocketed spring assembler as well. Observation for suspected genetic condition Z03.89 Overview Addendum 06/29/2024 12:30 PM by Dunia Angeles MD Considering these conditions together, it is possible that she has underlying VACTERL association given that she has vertebral defects, anal atresia, cardiac defects, and renal anomalies. While the SCT itself may explain some of these, it does not explain all. There have been some reports of coincidence of VACTERL with SCT (Pediatric Blood Cancer 2023; 71:5). Oimd will like benefit from a medical/cardiac genetic work-up given possible VACTERL which has some genetic associations and the aortic root dilation. [ ] Medical and cardiac genetics referrals placed, not scheduled as of 06/28 Recurrent urinary tract infection N39.0 Overview Addendum 06/29/2024 12:26 PM by Dunia Angeles MD Omid also reports a history of recurrent UTIs as well as several episodes of pyelonephritis. She has been on prophylactic antibiotics in the past. She has not yet done a Ucx this . Review of prior culture data in Care Everywhere demonstrates numerous microbes including GBS, pseudomonas, E coli, and enterococcus. [/] Monthly Ucx -Last sent 05/07: Neg -[facility] Enterococcus (was not taking her macrobid as pharmacy would not re-fill), on course of amp [ ] Repeat 07/2024 [/] Macrobid ppx 100 mg daily through 2 weeks PP, prescription re-sent 06/28 Scoliosis M41.9 Overview Addendum 06/29/2024 12:29 PM by Dunia Angeles MD In addition to the SCT resection at , Omid reports that she underwent a spinal fusion in adolescence due to severe scoliosis from T3-L1. This is higher than would be expected for SCT-related problems so is like a separate issue. [ ] Anesthesia consult at 32 weeks Return to office in 4 weeks for visit and growth scan. I spent a total of 45 minutes on the date of the service which included preparing to see the patient, [id number] patient care, completing clinical documentation, obtaining and/or reviewing separately obtained history, performing a medically appropriate examination, counseling and educating the patient/family/caregiver, and ordering medications, tests, or procedures. Dunia Angeles MD MPH [facility] Maternal- Medicine Staff Care coordination notes: - Needs echo at 22 - 24 weeks - Needs to get more 14 Norwegian catheters for self-cathing as she is requiring this more frequently in - Needs cardiac genetics - She is having SOB and palpitations; Her cardio-OB appt is 08/10; Ideally she can get echo and ZioPatch sooner - Needs urology appt, missed visit, message sent to provider [facility] 06-28-2024 Miscellaneous Notes Maternal- Medicine Office Progress Note Subjective/History of Present Illness: 23 year old at 20w3d with Estimated Date of Delivery: 11/12/24 presenting for high risk follow up in the setting of 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 She also has scoliosis s/p spinal fusion, anal stricture s/p anoplasty, and aortic root dilation. She reports overall feeling well today but is having difficulty sleeping at night and reports that sometimes she feels very congested at night and can only breathe/sleep with a fan actively blowing on her face. She also reports that sometimes when lying on her side she feels like her heart is racing. Denies cramping, vaginal bleeding, abnormal discharge. Already feeling robust movement. She stopped taking her macrobid in the setting of a pharmacy issue (was told that prescription was completed but it is written for the duration of the ). She subsequently developed UTI symptoms and is currently completed a course of ampicillin after 06/18 culture demonstrated 10-50K of enterococcus. Objective: Pulse BP Resp O2 Sat Temp Pain 68 103/68 Height Weight BMI 5' 2.01 (157.5 cm) 106 lb 11.2 oz (48.4 kg) 19.51 Physical Exam: Gen: Well-appearing, no acute distress CV/Resp: Non-labored breathing on room air Abd: Gravid, non-tender Ext: Moving spontaneously, no significant edema bilaterally FHTs: + on anatomy scan Medication Review: Current Outpatient Medications on File Prior to Visit Medication Sig ampicillin (PRINCIPEN) 500 mg capsule FOLIC ACID ORAL Take by mouth. blood pressure test kit-small (BLOOD PRESSURE MONITOR SM CUFF) 1 Each once daily as needed. aspirin, enteric coated (ECOTRIN LOW STRENGTH) 81 mg EC tablet Take 1 tablet by mouth once daily. Problem-Based Assessment and Plan: OB Episode Problems ICD-10-CM Obstetrics Aortic root dilation (HCC) I77.810 Overview Addendum 06/29/2024 12:55 PM by Dunia Angeles MD Omid has also been diagnosed with a borderline dilated aortic root. She follows with a senior telecommunications engineer in [place] (Dr. Katia Mei) and her last echo 12/2023 demonstrated borderline dilated aortic root (31 mm, Z-score 2.6). [ ] echo 22 weeks - as of 06/28 this is not yet scheduled [ ] Cardio-OB, echo 08/10/2024 [ ] Genetics/cardiac genetics - as of 06/28 consult is ordered but this is not yet scheduled 06/28/24 - Patient reports some PM SOB/sensation of congestion and heart racing - will investigate ability to obtain echo and/or ZioPatch sooner than scheduled cardioOB appt ASCUS with positive high risk HPV cervical R87.610, R87.810 Overview Signed 04/27/2024 11:00 AM by Nahomy Carcamo PA-C 11/15/2023 - repeat 10/2024 or PP Chronic renal impairment N18.9 Overview Addendum 06/29/2024 12:25 PM by Dunia Angeles MD [place]'s chart is notable for prior diagnosis of RTA and stage III CKD, which is likely secondary to obstructive uropathy. On available records, her BUN and GFR have recently been normal and her Cr is currently high-normal. Serum Cr was 0.94 on 04/17/24. [facility] records demonstrate a baseline serum Cr in the 1.1 range. Her earliest available labs in [facility] (2010) demonstrate azotemia.She has not had a recent assessment of urine protein. She sees a principal archaeologist at the [facility], Dr. Lor Lozano. [x] 24 hr urine (ordered 05/07) - 0.35 g [ ] 2nd tri CMP - plan for blood work at 24 week visit [ ] 3rd tri CMP History of maternal hypertension Z87.59 Overview Addendum 06/29/2024 12:55 PM by Dunia Angeles MD [place] also reports a history of hypertension in adolescence which was likely in the setting of worse kidney function. She does not have a BP cuff at home and has not been on antihypertensive medication. 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 She also had significant bilateral VUR and hydronephrosis. She underwent a bilateral ureteral reimplantation surgery with bladder augmentation/creation of Mitrofanoff fistula. She does not leak any urine urethrally and voids entirely by Mitrofanoff straight catheterization through the stoma in her anterior abdomen/pelvis. She follows with a urologist at [facility] in [place], and [place] Constance Loja. With regard to Omid's reconstructed bladder, we [...] Reprod Med 2005;51:9, Journal of Urology Sep 2020). On the other hand, urgent/unplanned could be very complicated in this setting, and the risks of potential unplanned could outweigh the benefit of a potential vaginal delivery if successful, so planned is also reasonable. Regardless, it will be important to coordinate care with urology in the event that is required, as a urologist should be present in the OR. [ ] Referral to urology (reconstructive) to establish care at [facility] for delivery planning - missed appt and needs to be re-scheduled, message sent to Karely Nunez MD [ ] Delivery planning (timing, mode) pending further progress with multidisciplinary involvement (urology, possible gen surg) Supervision of high risk , antepartum O09.90 Overview Addendum 06/29/2024 12:28 PM by Dunia Angeles MD Care Checklist [ ] [facility] co-management visits at 20, 28, 34 weeks --> Transfer care to [facility] for easier coordination Vaccines: [] Flu vaccine [] RSV vaccine 32 0/7 - 36 6/7 (Jun - Nov) [] COVID vaccine [] TDaP 27-36 First trimester: [x] Dating US [x] 1st tri labs [x] Pap smear [x] NIPT screening [x] First trimester anatomy scan Second trimester: [x] Anatomy scan [] Mode of Delivery [] Feeding - [] Pump ordered [] Diabetes screen [] CBC, RPR Third trimester (28-30 weeks): [] Consent [] Contraception - [] Doughnut Dough Mixer Third trimester (36-40 weeks): [] GBS [] Presentation - [] Scheduled [] yes - Hibiclens, pre-op instructions, CBC, T&S ordered [] no [] H&P surveillance [] Monthly growth US starting at 24 weeks [] Weekly testing beginning at 32 weeks Generalized anxiety disorder F41.1 Overview Signed 05/09/2024 1:07 PM by Dunia Angeles MD Previously on Lexapro. Currently asymptomatic. Current Assessment & Plan 06/28/2024 Routine Office Visit Written 06/29/2024 12:29 PM by Dunia Angeles MD Asymptomatic again today. H/O abdominal surgery Z98.890 Overview Signed 05/09/2024 1:09 PM by Dunia Angeles MD Omid describes that she experienced several bowel obstructions which required surgical repair in childhood, both thought to be secondary to scar tissue from her SCT surgery. She also describes anal stricture and that she had an anoplasty surgery in pocketed spring assembler as well. Observation for suspected genetic condition Z03.89 Overview Addendum 06/29/2024 12:30 PM by Dunia Angeles MD Considering these conditions together, it is possible [...] genetic associations and the aortic root dilation. [ ] Medical and cardiac genetics referrals placed, not scheduled as of 06/28 Recurrent urinary tract infection N39.0 Overview Addendum 06/29/2024 12:26 PM by Dunia Angeles MD Omid also reports a history of recurrent UTIs as well as several episodes of pyelonephritis. She has been on prophylactic antibiotics in the past. She has not yet done a Ucx this . Review of prior culture data in Care Everywhere demonstrates numerous microbes including GBS, pseudomonas, E coli, and enterococcus. [/] Monthly Ucx -Last sent 05/07: Neg -06/18/24 positive at [facility] for 10-50K Enterococcus (was not taking her macrobid as pharmacy would not re-fill), on course of amp [ ] Repeat 07/2024 [/] Macrobid ppx 100 mg daily through 2 weeks PP, prescription re-sent 06/28 Scoliosis M41.9 Overview Addendum 06/29/2024 12:29 PM by Dunia Angeles MD In addition to the SCT resection at , Omid reports that she underwent a spinal fusion in adolescence due to severe scoliosis from T3-L1. This is higher than would be expected for SCT-related problems so is like a separate issue. [ ] Anesthesia consult at 32 weeks Return to office in 4 weeks for visit and growth scan. I spent a total of 45 minutes on the date of the service which included preparing to see the patient, [id number] patient care, completing clinical documentation, obtaining and/or reviewing separately obtained history, performing a medically appropriate examination, counseling and educating the patient/family/caregiver, and ordering medications, tests, or procedures. Dunia Angeles MD MPH [facility] Maternal- Medicine Staff Care coordination notes: - Needs echo at 22 - 24 weeks - Needs to get more 14 Norwegian catheters for self-cathing as she is requiring this more frequently in - Needs cardiac genetics - She is having SOB and palpitations; Her cardio-OB appt is 08/10; Ideally she can get echo and ZioPatch sooner - Needs urology appt, missed visit, message sent to provider documented in this encounter [facility] 06-15-2024 History of Present illness Narrative [facility] NEW PATIENT HISTORY AND PHYSICAL EXAM PATIENT INFO: Agustina Pimentel 23 year old REFERRING M.D.: No referring provider defined for this encounter. HISTORY CHIEF COMPLAINT: 19 week , NGB with prior BNR, augment and mitrofanoff. Will require elective c/s delivery HPI: [address] Angeles in [facility]. History per OSH nephrology note 2022 chronic renal insufficiency, bilateral hydronephrosis, RTA, teratoma and neurogenic bladder referred to Adult Nephrology by her Packerhead Machine Operator for transition of care. Her surgeries include bladder surgery including bladder augmentation with Mitrofanoff stoma and uretheral lengthening/reimplantation and cystoscopy for dilation of stoma. She has been followed in Pediatric Nephrology clinic for many years. She does straight catherizations and has not had an UTI in the recent past. 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 She has another appointment with Dr. Bell in August and will get labs an an US of kidneys at that time. She does not have any concerns at this time. Limited Uro notes that are meaningful in the system- former Dr. Yap patient Note from 2010 neurogenic bladder secondary to resection of a massive presacral teratoma at . Subsequently developed bilat. Hydroureteronephrosis multiple episodes of pyelonephritis. On 08-13-06 she underwent urethral lenghtening, bladder augment and Mitrofanoff catheterizable stoma. She caths. Q4h. And irrigates 2x/day. Never leaks from below unless she sleeps 2-4hrs over her usual time. Bowels well controlled with1.5 tbsp, of Mirilax. Saw Dr. Bell this AM. ER visit urinary retention 10/04/23 She has proteinuria (0.35 g/day) 05/30/24, UA 1+ egfr by Cr=89 (0.94) I see a note from Margo Willson from 2020 but doesn't have much history, just that she had a stone that required removal (09/14/21) There is mention of HTN in her history, but her last BP in OB note 118/71 CT dated 02/05/24 INDINGS: Chronic pectus excavatum deformity. Visualized pulmonary parenchyma appears unremarkable. No pleural or pericardial effusion. No intra-abdominal free air or free fluid. The liver, gallbladder, spleen, pancreas, and adrenal glands appear unremarkable. Persistent renal lobulation. Kidneys enhance symmetrically, with no nephrolithiasis, hydronephrosis, or suspicious renal lesion. Urinary bladder wall appears thickened/trabeculated. Small physiologic amount of pelvic free fluid. [...] neurogenic bladder. Recommend clinical correlation with urinalysis. I logged in at 7:59 and stayed on the visit until 8:15 and she didn't log in. Called her cellphone, no VM set up. Sent reminder through VV system, didn't log on. Will need to be r/s. Karely Nunez MD documented in this encounter [facility] 06-15-2024 Note HNO ID: [id number] Author: KARELY NUNEZ MD Service: ? Author Type: Physician Type: Progress Notes Filed: 06/15/2024 08:16 Note Text: [facility] NEW PATIENT HISTORY AND PHYSICAL EXAM PATIENT INFO: Agustina Pimentel 23 year old REFERRING M.D.: No referring provider defined for this encounter. HISTORY CHIEF COMPLAINT: 19 week , NGB with prior BNR, augment and mitrofanoff. Will require elective c/s delivery HPI: [address] Angeles in [facility]. History per OSH nephrology note 2022 chronic renal insufficiency, bilateral hydronephrosis, RTA, teratoma and neurogenic bladder referred to Adult Nephrology by her Packerhead Machine Operator for transition of care. Her surgeries include bladder surgery including bladder augmentation with Mitrofanoff stoma and uretheral lengthening/reimplantation and cystoscopy for dilation of stoma. She has been followed in Pediatric Nephrology clinic for many years. She does straight catherizations and has not had an UTI in the recent past. 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 She has another appointment with Dr. Bell in August and will get labs an an US of kidneys at that time. She does not have any concerns at this time. Limited Uro notes that are meaningful in the system- former Dr. Yap patient Note from 2010 neurogenic bladder secondary to resection of a massive presacral teratoma at . Subsequently developed bilat. Hydroureteronephrosis multiple episodes of pyelonephritis. On 08-13-06 she underwent urethral lenghtening, bladder augment and Mitrofanoff catheterizable stoma. She caths. Q4h. And irrigates 2x/day. Never leaks from below unless she sleeps 2-4hrs over her usual time. Bowels well controlled with1.5 tbsp, of Mirilax. Saw Dr. Bell this AM. ER visit urinary retention 10/04/23 She has proteinuria (0.35 g/day) 05/30/24, UA 1+ egfr by Cr=89 (0.94) I see a note from Margo Willson from 2020 but doesn't have much history, just that she had a stone that required removal (09/14/21) There is mention of HTN in her history, but her last BP in OB note 118/71 CT dated 02/05/24 INDINGS: Chronic pectus excavatum deformity. Visualized pulmonary parenchyma appears unremarkable. No pleural or pericardial effusion. No intra-abdominal free air or free fluid. The liver, gallbladder, spleen, pancreas, and adrenal glands appear unremarkable. Persistent renal lobulation. Kidneys enhance symmetrically, with no nephrolithiasis, hydronephrosis, or suspicious renal lesion. Urinary bladder wall appears thickened/trabeculated. Small physiologic amount of pelvic free fluid. [...] neurogenic bladder. Recommend clinical correlation with urinalysis. I logged in at 7:59 and stayed on the visit until 8:15 and she didn't log in. Called her cellphone, no VM set up. Sent reminder through [employer] system, didn't log on. Will need to be r/s. Karely Nunez MD [facility] 05-30-2024 Progress note Formatting of t his [...] Routine care 2) AFP ordered today 3) [facility] consult for hx of hydronephrosis and renal insufficience (Also sees urology) and for aortic root dilation 4) Aortic root dilatation - echo? Appreciate [facility] recs 5) Hx of bowel resection and teratoma removal in infancy - consider ergonomic specialist onc assist if c/section needed 6) Consider transfer of care to [facility] service 7) RTO in 4 wks Judith Campos MD [facility] 05-30-2024 Miscellaneous Notes S: Patient doing well. No vaginal bleeding or leakage of fluid. No abdominal/pelvic pain O: BP 118/71 Pulse 75 Ht 157.5 cm (5' 2.01 ) Wt 47.3 kg (104 lb 3.2 oz) LMP 02/06/2024 BMI 19.05 kg/m See flowsheet A/P: 23 year old @ 16w2d 1) Routine care 2) AFP ordered today 3) M consult for hx of hydronephrosis and renal insufficience (Also sees urology) and for aortic root dilation 4) Aortic root dilatation - echo? Appreciate M recs 5) Hx of bowel resection and teratoma removal in infancy - consider ergonomic specialist onc assist if c/section needed 6) Consider transfer of care to [facility] service 7) RTO in 4 wks Judith Campos MD documented in this encounter [facility] 05-30-2024 Telephone encounter Note Pt has appointment today with Dr Andres Marcos RN [facility] 05-30-2024 Miscellaneous Notes Pt has appointment [...] calling: self Call patient at: on cell [phone] (home) [phone] (cell) Was an appointment scheduled: No Closing statement: Symptom Call: Thank you for calling [facility], your call is very important. A nurse will call in approximately 2-4 hours during business hours. If this is an emergency, please contact 911. Ary Saleem documented in this encounter [facility] 05-30-2024 Note HNO ID: [id number] Author: JOSE MARIA AMADOR MD Service: ? Author Type: Physician Type: Progress Notes Filed: 05/30/2024 14:08 Note Text: Patient here for routine anatomy scan. See ultrasound report for details. Noninvasive testing is negative. Ultrasound exam in 4 weeks to complete anatomy survey and reevaluate growth. Clinical correlation. Jose Maria Amador MD [facility] 05-30-2024 History of Present illness Narrative Patient here for routine anatomy scan. See ultrasound report for details. Noninvasive testing is negative. Ultrasound exam in 4 weeks to complete anatomy survey and reevaluate growth. Clinical correlation. Jose Maria Amador MD documented in this encounter [facility] 05-28-2024 Telephone encounter Note Called patient. No answer, LVM to call back. Tita Crow RN [facility] 05-28-2024 Telephone encounter Note Omid is calling Judith Campos MD today with concern regarding headaches lasting for 3 days and unsure if there is anything she can take in regards to these headaches with . Patient has been identified by name and birthdate. Duration of symptoms: 3 days Person calling: self Call patient at: on cell [phone] (home) [phone] (cell) Was an appointment scheduled: No Closing statement: Symptom Call: Thank you for calling [facility], your call is very important. A nurse will call in approximately 2-4 hours during business hours. If this is an emergency, please contact 911. Ary Saleem [facility] 05-07-2024 Note HNO ID: [id number] Author: DUNIA ANGELES MD Service: ? Author Type: Physician Type: Progress Notes Filed: 05/09/2024 13:16 Note Text: Director Chemistry AND Women's Health [place] OUTPATIENT VISIT DATE May 07, 2024 OUTPATIENT VISIT TYPE CONSULT REFERRING PROVIDER: WALT Robertson Recommendations from today's consultation will be conveyed through the electronic medical record. History of Present Illness: 23 year old at 13w0d with Estimated Date of Delivery: 11/12/24 presenting for consultation with Maternal- Medicine at the [facility] in the setting of maternal history of multiple personal congenital anomalies and resulting sequelae. Omid presents today with her mother (who is her grandmother) and together they describe the following history. 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 She has received most of her prior healthcare in the [place] area and lives about [place] away from [facility] She developed a neurogenic bladder in pocketed spring assembler, presumably as a result of the original [...] enterococcus. She follows with a urologist at [facility] in [place], and WALT Loja. 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 On available records, her BUN and GFR have recently been normal and her Cr is currently high-normal. Serum Cr was 0.94 on 04/17/24. [facility] records demonstrate a baseline serum Cr in the 1.1 range. Her earliest available labs in [facility] (2010) demonstrate azotemia.She has not had a recent assessment of urine protein. She sees a principal archaeologist at the [facility], Dr. Lor Lozano. Omid also reports a [...] dilated aortic root. She follows with a senior telecommunications engineer in [place] (Dr. Katia Mei) and her last echo 12/2023 demonstrated borderline dilated aortic root (31 mm, Z-score 2.6). She has a Bowel issues Omid describes that she experienced several bowel obstructions which required surgical repair in childhood, both thought to be secondary to scar tissue from her SCT surgery. She also describes anal stricture and that she had an anoplasty surgery in pocketed spring assembler as well. She also experiences chronic constipation [...] dilated aortic root. She follows with a senior telecommunications engineer in [place] (Dr. Katia Mei) and her last echo 12/2023 demonstrated borderline dilated aortic root (31 mm, Z-score 2.6). Bowel issues Omid describes that she experienced several bowel obstructions which required surgical repair in childhood, both thought to be secondary to scar tissue from her SCT surgery. She also describes anal stricture and that she had an anoplasty surgery in pocketed spring assembler as well. She also experiences chronic constipation and takes Miralax PRN. Other medical conditions Other medical condition include history of anxiety for which she has previously been on Lexapro and childhood asthma. Her re (more content not included)... [facility] 05-07-2024 History of Present illness Narrative Images from the original note were not included. Director Chemistry & Women's Health [place] OUTPATIENT VISIT DATE May 07, 2024 OUTPATIENT VISIT TYPE CONSULT REFERRING PROVIDER: WALT Robertson Recommendations from today's consultation will be conveyed through the electronic medical record. History of Present Illness: 23 year old at 13w0d with Estimated Date of Delivery: 11/12/24 presenting for consultation with Maternal- Medicine at the [facility] in the setting of maternal history of multiple personal congenital anomalies and resulting sequelae. Omid presents today with her mother (who is her grandmother) and together they describe the following history. 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 She has received most of her prior healthcare in the [place] area and lives about [place] away from [facility] She developed a neurogenic bladder in pocketed spring assembler, presumably as a result of the original [...] enterococcus. She follows with a urologist at [facility] in [place], and WALT Loja. 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 On available records, her BUN and GFR have recently been normal and her Cr is currently high-normal. Serum Cr was 0.94 on 04/17/24. [facility] records demonstrate a baseline serum Cr in the 1.1 range. Her earliest available labs in [facility] (2010) demonstrate azotemia.She has not had a recent assessment of urine protein. She sees a principal archaeologist at the [facility], Dr. Lor Lozano. Omid also reports a [...] dilated aortic root. She follows with a senior telecommunications engineer in [place] (Dr. Katia Mei) and her last echo 12/2023 demonstrated borderline dilated aortic root (31 mm, Z-score 2.6). She has a Bowel issues Omid describes that she experienced several bowel obstructions which required surgical repair in childhood, both thought to be secondary to scar tissue from her SCT surgery. She also describes anal stricture and that she had an anoplasty surgery in pocketed spring assembler as well. She also experiences chronic constipation [...] dilated aortic root. She follows with a senior telecommunications engineer in [place] (Dr. Katia Mei) and her last echo 12/2023 demonstrated borderline dilated aortic root (31 mm, Z-score 2.6). Bowel issues Omid describes that she experienced several bowel obstructions which required surgical repair in childhood, both thought to be secondary to scar tissue from her SCT surgery. She also describes anal stricture and that she had an anoplasty surgery in pocketed spring assembler as well. She also experiences chronic constipation [...] -ureteral reimplantation? Dr. Montague - [facility] - Mild intermittent asthma Childhood Neurogenic [...] bladder stone SPINAL FUSION,ANT,EA ADNL LEVEL 2017 Mari, T3-L1 Medications: Current Outpatient Medications on File Prior to Visit Medication Sig Rgimtxlr-Ao-Vqp-Fe-FA tab Take 1 tablet by mouth once [...] Reprod Med 2005;51:9, Journal of Urology Sep 2020). On the other hand, urgent/unplanned could be [...] the OR. As Omid's urologist is in [place], we will consult the reconstructive urology service here at [facility] so that Omid can establish care. [...] All of her documented blood pressures at [facility] have been normal. She should have a complete metabolic panel at least once per trimester as well as a bsaeline assessment of urine protein (24 hour ordered today and instructions given). She should continue close follow up with her principal archaeologist. Nephrotoxic medications should be avoided. In addition, [...] progresses. Summary of Recommendations: -Routine care with M co-management or transfer care to [facility] -If co-managed, she should see MFM at 20, 28, and 34 weeks for additional visits -Urine culture today, 24 hour urine protein ordered -ASA 81 mg (Rx sent), BP cuff (Rx sent) with plan for 2x/week monitoring -Prophylactic macrobid for duration of and 2 weeks -Referral to urology (reconstructive) to establish care at [facility] for delivery planning -Referral to genetics [...] which included preparing to see the patient, [id number] patient care, completing clinical documentation, obtaining and/or reviewing separately obtained history, performing a medically appropriate examination, counseling and educating the patient/family/caregiver, and ordering medications, tests, or procedures. SIGNATURE: Dunia Angeles MD PATIENT NAME: Agustina Pimentel DATE: May 07, 2024 TIME: 12:24 PM documented in this encounter [facility] 04-30-2024 Telephone encounter Note 1st risk assessment form submitted 04/30/24 Rudolph Lorenzo RN [facility] 04-30-2024 Miscellaneous Notes 1st risk assessment form submitted 04/30/24 Rudolph Lorenzo RN documented in this encounter [facility] 04-30-2024 Telephone encounter Note Called pt and ID by name and . Informed pt of normal/low risk NIPT results, pt would like results released to MyChart to view gender at home. Released results to pt chart. Karley Elam RN [facility] 04-30-2024 Miscellaneous Notes Called pt and ID by name and . Informed pt of normal/low risk NIPT results, pt would like results released to MyChart to view gender at home. Released results to pt chart. Karley Elam RN Patient's NIPT screening test came back normal! The gender will be listed. If still planning on surprise gender/gender reveal, please do not open the results listed as [id number] PLUS. Nahomy Carcamo PA-C documented in this encounter [facility] 04-30-2024 Telephone encounter Note Patient's NIPT screening test came back normal! The gender will be listed. If still planning on surprise gender/gender reveal, please do not open the results listed as [id number] PLUS. Nahomy Carcamo PA-C [facility] 04-27-2024 Telephone encounter Note Referral to MFM received. Cardiac OB has already reached out to patient to discuss scheduling. [facility] 04-27-2024 Miscellaneous Notes Referral to MFM received. Cardiac OB has already reached out to patient to discuss scheduling. documented in this encounter [facility] 04-27-2024 Telephone encounter Note Call to patient to schedule COB visit. Patient requests call back Tuesday as she is driving and unavailable to talk. Will call back. Lesa Agrawal RN [facility] 04-27-2024 Miscellaneous Notes Call to patient to schedule COB visit. Patient requests call back Tuesday as she is driving and unavailable to talk. Will call back. Lesa Agrawal RN documented in this encounter [facility] 04-24-2024 Note HNO ID: [id number] Author: NAHOMY CARCAMO PA-C Service: ? Author Type: Physician Consulting Solution Manager Type: Progress Notes Filed: 04/27/2024 11:03 Note [...] the following (please check all that apply)? Mold Capper Helper care Social History: Do you have any [...] stool, Vomiting MUSCULOSKELETA (more content not included)... [facility] 04-24-2024 History of Present illness Narrative INITIAL [...] the following (please check all that apply)? Mold Capper Helper care Social History: Do you have any [...] Your guide to a health and the Claim Agent. Reviewed midwifery and director export services that are available. 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 Dough Mixer Third trimester (36-40 weeks): [] GBS [] Presentation - [] Scheduled [] yes - Hibiclens, pre-op instructions, CBC, T&S ordered [] no [] H&P Relevant Medications FOLIC ACID ORAL Zdduvwkw-Hc-Tdr-Fe-FA tab Other Relevant Orders GONORRHEA/CHLAMYDIA NAAT (Completed) COMPLETE BLOOD COUNT (Completed) SYPHILIS TOTAL W/REFLEX (Completed) RUBELLA IGG ANTIBODY (Completed) HEPATITIS B SURFACE ANTIGEN (Completed) HEPATITIS C ANTIBODY IA WITH CONFIRMATION (Completed) HIV 1/2 COMBO WITH REFLEX TO DIFFERENTIATION (Completed) TYPE + SCREEN (Completed) HEMOGLOBIN A1C (Completed) OBSTETRIC ULTRASOUND WHI NUCHAL TRANSLUCENCY WHI TRANSPLANT SURGEON [id number] PLUS CONSULT TO MATERNAL MEDI ASCUS with [...] Nahomy Carcamo PA-C documented in this encounter [facility] 04-24-2024 Instructions Nahomy Carcamo PA-C - 04/24/2024 8:59 AM EDT Please select the following link to access the [facility] Your Guide to a Healthy . [email or web address] documented in this encounter [facility] 04-20-2024 Telephone encounter Note Pt called, identified by name and . Pt is transferring care from [place] (has OB appt at [facility] April 24) . Requesting to see MFM as well. Records in Care Everywhere. H/o aortic root dilation, CKD, neurogenic bladder, RTA (renal tubular acidosis). Managed by principal archaeologist and senior telecommunications engineer in [place]. (Sarai Mei and [place]). Current medications: folic acid and antibiotic for a UTI. Will message care nurses for advice for scheduling (cardiac OB vs standard MFM consult) and then call pt back with appointments. Verbalizes understanding and agreement, no questions/concerns at this time. Saskia Marin RN [facility] 04-20-2024 Miscellaneous Notes Pt called, identified by name and . Pt is transferring care from [place] (has OB appt at [facility] April 24) . Requesting to see MFM as well. Records in Care Everywhere. H/o aortic root dilation, CKD, neurogenic bladder, RTA (renal tubular acidosis). Managed by principal archaeologist and senior telecommunications engineer in [place]. (Sarai Bates). Current medications: folic acid and antibiotic for a UTI. Will message care nurses for advice for scheduling (cardiac OB vs standard MFM consult) and then call pt back with appointments. Verbalizes understanding and agreement, no questions/concerns at this time. Saskia Marin RN documented in this encounter [facility] 04-18-2024 Telephone encounter Note Call placed [...] Office/provider patient wishes to establish care to? [place] Patient aware to sign up for My Chart if she does not already have it, so she can receive the ocular care aide messages. Will forward this encounter to the schedulers in this office. Rudolph Lorenzo RN [facility] 04-18-2024 Miscellaneous Notes Call placed to [...] Advised pt of MyChart message sent by SOUMYA RN to reschedule her 7/5 appt. Office/provider patient wishes to establish care to? [place] Patient aware to sign up for My Chart if she does not already have it, so she can receive the ocular care aide messages. Will forward this encounter to the schedulers in this office. Rudolph Lorenzo RN documented in this encounter [facility] 04-16-2024 Telephone encounter Note Called pt and left voicemail. Informed pt the appointment that was made for her on 04/20 was made in error. Requested pt call our office to review what information needs to be sent in a referral before scheduling. Office number provided. Abelardo Ramon RN [facility] 04-16-2024 Miscellaneous Notes Called pt and left voicemail. Informed pt the appointment that was made for her on 04/20 was made in error. Requested pt call our office to review what information needs to be sent in a referral before scheduling. Office number provided. Abelardo Ramon RN documented in this encounter [facility] 01-16-2024 History of Present illness Narrative [...] 07/07/2017 Performed by Mervin Eugene DO at [facility] REMOVAL CALCULUS BLADDER STONES OPEN N/A 02/24/2023 Performed by Hunter Villarreal MD at [facility] SALIVARY GLAND SURGERY Right age 12-13 FAMILY [...] Josiane GARCIA RN documented in this encounter [facility] [employer] 12-07-2023 History of Present illness Narrative REASON [...] 07/07/2017 Performed by Mervin Eugene DO at [facility] REMOVAL CALCULUS BLADDER STONES OPEN N/A 02/24/2023 Performed by Hunter Villarreal MD at [facility] SALIVARY GLAND SURGERY Right age 12-13 ALLERGIES: [...] and the other consultants, we search on [employer] and all the available care everywhere epic I did review all the imaging studies of the patient available on EMR, ordered by the primary care physician and the other direct response consultant HABITS: Patient activity no restrictions, diet [...] there is pelvic reconstructive surgery and bladder paint specialist. [facility] versus [facility] was discussed with the patient. At the moment we would discourage the patient to get before she sees although multispecialty team to have a planning in place before she gets . Patient is high risk and is not a candidate for delivery at [facility]. RECOMMENDATION: 1. Referral to [facility] per patient request as the patient plans to deliver in [place]. 2. Patient is high risk and can not be delivered at [facility] due to multiple pelvic surgeries. DISPOSITION: At this point the patient is in complete care of her rig welder. Patient does not any future appiotments scheduled with us. Thank you for allowing me to participate in Agustina Pimentel . If there any questions please do not hesitate to contact us. Sincerely, AC MARIEE MD documented in this encounter [facility] 12-07-2023 Evaluation note Diagnosis Hydronephrosis of left kidney Hydronephrosis Chronic renal impairment, stage 3 (moderate), unspecified whether stage 3a or 3b CKD ([facility]) documented in this encounter [facility]02-03-2024 Miscellaneous Notes* Telephone Encounter - CHOCO Chao - 11/19/2023 11:20 AM EST Call to pt. And discussed +chlamydia result. Advised partner tx., abstaining from intercourse [id number] after partner(s) treated. Questions answered re: side effects of medication. Advised pt. To call office Tuesday to schedule NILSON in 3-4 wks. Allergies and pharmacy verified. [facility] Telephone encounter Note* Telephone Encounter - CHOCO Chao - 11/19/2023 11:20 AM EST Call to pt. And discussed +chlamydia result. Advised partner tx., abstaining from intercourse [id number] after partner(s) treated. Questions answered re: side effects of medication. Advised pt. To call office Tuesday to schedule NILSON in 3-4 wks. Allergies and pharmacy verified. [facility]01-31-2024 Miscellaneous Notes* Telephone Encounter - CHOCO Chao - 11/16/2023 11:37 AM EST Call to pt. To discuss VNAP results and advised +for VNAP. Pt. Advised GC/CT and PAP are pending. Discussed etiology of BV, care, use of condoms, medication and how to take. Pt. Verbalized understanding. Allergies and pharmacy verified. Rx. For metronidazole PV sent. [facility] Telephone encounter Note* Telephone Encounter - CHOCO Chao - 11/16/2023 11:37 AM EST Call to pt. To discuss VNAP results and advised +for VNAP. Pt. Advised GC/CT and PAP are pending. Discussed etiology of BV, care, use of condoms, medication and how to take. Pt. Verbalized understanding. Allergies and pharmacy verified. Rx. For metronidazole PV sent. [facility]01-30-2024 History of Present illness Narrative* Kathryn Nettles MD - 11/15/2023 10:00 AM EST Annual Well Woman Visit 11/15/2023 Brad Pimentel is a 23 y.o. female who presents for annual ergonomic specialist exam. Periods are regular every 28-30 days, [...] 07/07/2017 Performed by Mervin Eugene DO at [facility] REMOVAL CALCULUS BLADDER STONES OPEN N/A 02/24/2023 Performed by Hunter Villarreal MD at [facility] SALIVARY GLAND SURGERY Right age 12-13 FAMILY [...] Follow up in 1 year for annual ergonomic specialist exam. Follow up as needed. Next pap due per ASCCP guidelines. Discussed taking a multivitamin. Discussed Calcium and Vitamin D for prevention of osteoporosis. Discussed recommendations for HPV vaccine between 9-45 yo. Can be received at [employer] or the [facility]. Discussed need for yearly mammogram after 40 yo. Discussed colon cancer screening recommendations to begin at 45 yo, patient to discuss with PCP. All questions answered. MD Josiane GARCIA, RN [facility] Miscellaneous Notes* Telephone Encounter - Pau Dotson - 11/08/2023 11:24 AM EST Called patient about pre conception order put in by Dr Dani Nettles. Verified patients information and address, reminded her to send back 15 page packet to get scheduled. Patient confirmed, packet sent 11/08/2023. [facility] Telephone encounter Note* Telephone Encounter - Pau Dotson - 11/08/2023 11:24 AM EST Called patient about pre conception order put in by Dr Dani Nettles. Verified patients information and address, reminded her to send back 15 page packet to get scheduled. Patient confirmed, packet sent 11/08/2023. [facility] [id number] Evaluation note* Diagnosis Hydronephrosis of left kidney- Primary Hydronephrosis Chronic renal impairment, stage 3 (moderate), unspecified whether stage 3a or 3b CKD ([facility]) Irregular bleeding Irregular menstrual cycle documented in this encounter [facility]01-23-2024 Reason for referral (narrative)* Consultation (Routine) - Pending Review Specialty Diagnoses / Procedures Referred By Kassie guillen Referred To Contact Maternal and Medicine Diagnoses Hydronephrosis of left kidney Chronic renal impairment, stage 3 (moderate), unspecified whether stage 3a or 3b CKD ([facility]) Kathryn Nettles MD [address] [place] [address] [facility] Maternal Med [address] [place] [address] Referral ID Status Reason Start Date Expiration Date Visits Requested Visits Authorized [id number] Pending Review Specialty Services Required 11/07/2023 11/06/2024 1 1 [facility]01-22-2024 History of Present illness Narrative* Kathryn [...] LEFT KIDNEY SHE IS COUNSELED BY HER BASIC SCIENCES DEAN THAT SHE WILL EVENTUALLY NEED A KIDNEY [...] (attention deficit hyperactivity disorder) Anxiety Aorta disorder ([facility]) enlarged following cardiology Asthma Chronic renal insufficiency [...] 07/07/2017 Performed by Mervin Eugene DO at [facility] REMOVAL CALCULUS BLADDER STONES OPEN N/A 02/24/2023 Performed by Hunter Villarreal MD at [facility] SALIVARY GLAND SURGERY Right age 12-13 [...] RISK FOR PRECONCEPTUAL COUNSELING GIVEN REFERRED TO [facility] A[facility]/INF BASIC LABS MD Ana GARCIA RN documented in this encounterMount Ascutney HospitalNeodata Group [id number] Miscellaneous Notes* Telephone Encounter - Paulina Cassidy [...] if appt still needed documented in this encounterMount Ascutney HospitalTVTY12-21-2023 Telephone encounter Note* Telephone Encounter - Paulina Cassidy CMA - 10/06/2023 2:07 PM EST Pt was in ER recently. SHe noticed what she thought was a blood clot coming out of belly button. Per ER --it is belly fat and should be seen by urology. Please see ER note--no xrays--IS this something that needs addressed quickly?? No pain per pt. [email or web address] Telephone encounter Note* Telephone Encounter - KELIN Wright - 10/06/2023 2:07 PM EST Can we get her in tomorrow to be seen. Hard to say what it is without actually seeing it. I do not see any notes that she called to report any problems. I see a note from Nephrology advising her to contact urology and go to ER. [email or web address] Work Phone: [phone] Telephone encounter Note* Telephone Encounter - Paulina Cassidy CMA - 10/06/2023 2:07 PM EST Left message for pt to make appt--?next week with midlevel? [email or web address] Telephone encounter Note* Telephone Encounter - Paulina Cassidy CMA - 10/06/2023 2:07 PM EST Left another message for pt on voice mail --asked pt to call office for update and let us know if appt still needed [facility] [employer] [id number] NoteNephrology Progress Patient : Agustina Pimentel; 22 y.o. Subjective: Patient is an 20 year old female with PMHx significant for chronic renal insufficiency, bilateral hydronephrosis, RTA, teratoma and neurogenic bladder referred to Adult Nephrology by her Packerhead Machine Operator for transition of care. Her surgeries include bladder surgery including bladder augmentation with Mitrofanoff stoma and uretheral lengthening/reimplantation and cystoscopy for dilation of stoma. She has been followed in Pediatric Nephrology clinic for many years. She does straight catherizations and has not had an UTI in the recent past. 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 She has another appointment with Dr. [...] bladder referred to Adult Nephrology by her Packerhead Machine Operator for transition of care. Her surgeries include bladder surgery including bladder augmentation with Mitrofanoff stoma and uretheral lengthening/reimplantation and cystoscopy for dilation of stoma. She has been followed in Pediatric Nephrology clinic for many years. She does straight catherizations and has not had an UTI in the recent past. 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 Seen in clinic today for regular follow up. 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 She had an appointment with Dr. Bell in August and states that she had labs and an US of kidneys at that time. States that everything was fine and was told to continue straight caths. Also, she saw an gun profiler doctor since she wants to get but [...] bladder referred to Adult Nephrology by her Packerhead Machine Operator for transition of care. 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 She did not get labs done but [...] bladder referred to Adult Nephrology by her Packerhead Machine Operator for transition of care. Her surgeries include [...] bladder referred to Adult Nephrology by her Packerhead Machine Operator for transition of care. Her surgeries include bladder surgery including bladder augmentation with Mitrofanoff stoma and uretheral lengthening/reimplantation and cystoscopy for dilation of stoma. She has been followed in Pediatric Nephrology clinic for many years. She does straight catherizations and has (more content not included)...[facility]11-29-[facility]21 Hospital Discharge instructions* Instructions* Ankush Mcmullen [...] intermittent catheterrizations as needed documented in this encounterNaturalPath Media Phone: evalsinphb note* Diagnosis CRI (chronic renal insufficiency), unspecified stage documented in this encounter [employer] Phone: evaluation note* Diagnosis Pelviectasis of kidney Hydronephrosis Neurogenic bladder Neurogenic bladder, NOS documented in this encounter [employer] Phone: evaluation note* Diagnosis Neurogenic bladder Neurogenic bladder, NOS Pelviectasis of kidney Hydronephrosis Mitrofanoff appendicovesicostomy present (HCC) documented in this encounter [employer] Phone: evaluation note* Diagnosis Neurogenic bladder Neurogenic bladder, NOS Currarino syndrome Aortic root dilatation (HCC) Aortic ectasia, unspecified site documented in this encounter [employer] Phone: evaluation note* Diagnosis CRI (chronic renal insufficiency), unspecified stage documented in this encounter [employer] Phone: evaluation note* Diagnosis Abdominal cramps- Primary Abdominal pain, unspecified site Vaginal spotting Other specified noninflammatory disorder of vagina Acute cystitis with hematuria Acute cystitis documented in this encounter [employer] Phone: evaluation note* Diagnosis Smear, vaginal, as part of routine gynecological examination- Primary Special screening for malignant neoplasms, vagina Screening for STD (sexually transmitted disease) Encounter for gynecological examination without abnormal finding [facility]* Diagnosis BV (bacterial vaginosis)- Primary Unspecified vaginitis and vulvovaginitis [facility]* Diagnosis Chlamydia infection- Primary Unspecified chlamydial infection, in conditions classified elsewhere and of unspecified site [facility]* Diagnosis Cervical smear, as part of routine gynecological examination- Primary Screening for malignant neoplasm of the cervix [facility]* Diagnosis Condyloma- Primary Condyloma acuminatum HPV (human papilloma virus) anogenital infection Human papillomavirus in conditions classified elsewhere and of unspecified site [facility]* Diagnosis Supervision of high risk [...] of state, incidental [facility] Diagnosis Aortic root dilation (HCC)- Primary Thoracic aortic ectasia [facility]* Diagnosis screening for malformation using ultrasonics- [...] (HCC) [facility] Diagnosis Supervision of high risk , [...] Other postprocedural status documented [facility] this [facility]* Diagnosis screening for malformation using ultrasonics- Primary Encounter for routine screening for malformation using ultrasonics Supervision of high risk , antepartum 16 weeks gestation of state, incidental [facility] Diagnosis Supervision of high risk in second trimester- Primary Unspecified high-risk 16 weeks gestation of state, incidental History of sacrococcygeal teratoma of sacrum Neoplasm of uncertain behavior of bone and articular cartilage History of maternal hypertension Personal history of other genital system and obstetric disorders Aortic root dilation (HCC) Thoracic aortic ectasia History of bowel resection [facility] Diagnosis NO SHOW- Primary [facility] Diagnosis Encounter for anatomic survey- Primary Supervision of high risk , antepartum screening for malformation using ultrasonics Encounter for routine screening for malformation using ultrasonics 20 weeks gestation of state, incidental History of maternal hypertension Personal history of other genital system and obstetric disorders Aortic root dilation (HCC) Thoracic aortic ectasia Recurrent urinary tract infection Urinary tract infection, site not specified Chronic renal impairment, unspecified CKD stage History of sacrococcygeal teratoma of sacrum Neoplasm of uncertain behavior of bone and articular cartilage Scoliosis, unspecified scoliosis type, unspecified spinal region Mitrofanoff appendicovesicostomy present (HCC) [facility] Diagnosis Supervision of high risk , antepartum- Primary Recurrent urinary tract infection affecting in second trimester Aortic root dilation (HCC) Thoracic aortic ectasia History of maternal hypertension Personal history of other genital system and obstetric disorders Chronic renal impairment, unspecified CKD stage Recurrent urinary tract infection Urinary tract infection, site not specified History of sacrococcygeal teratoma of sacrum Neoplasm of uncertain behavior of bone and articular cartilage Scoliosis, unspecified scoliosis type, unspecified spinal region Generalized anxiety disorder Mitrofanoff appendicovesicostomy present (HCC) Observation for suspected genetic condition Observation for suspected genetic or metabolic condition 20 weeks gestation of state, incidental * Assessment & Plan Note - Dunia Angeles MD - 06/29/2024 12:29 PM EDT Associated Problem(s): Generalized anxiety disorder Asymptomatic again today. * Assessment & Plan Note - Dunia Angeles MD - 06/29/2024 12:24 PM EDT Associated Problem(s): History of maternal hypertension 06/28 - Normotensive [facility] Attachments The following attachments cannot be sent through Care Everywhere. * UTI (Urinary Tract Infection): Female (Bermudian) * Abdominal Pain (Bermudian) * Vaginal Bleeding ([place]ermudian) [facility] [employer] Work Phone: InstructionsNot on filedocumented in this encounter [facility] filedocument[facility] in this encounter [facility] on filedocumented in this encounter [facility]ructionsNot on filedocumented in this encounter [facility] on filedocumented in this encounter [facility]ructionsNot on filedocumented in this encounter [facility]ructionsNot on filedocumented in this encounter [facility] System[facility] (narrative)* Outpatient Procedure (Routine) - New Request Specialty Diagnoses / Procedures Referred By Kassie t Referred To [facility] Diagnoses Enlarged aorta (HCC) Procedures ECHO Dunia Angeles MD [address] [place] [id number] [facility] [place] [address] Referral ID Status Reason Start Date Expiration Date Visits Requested Visits Authorized [id number] New Request Auto-Generat ed Referral 05/09/2024 05/09/2025 1 1 * Consult, Test, Treat (Routine) - Authorized Specialty Diagnoses / Procedures Referred By Contac t Referred To Contact Diagnoses Aortic root dilation (HCC) Procedures CONSULT TO MEDICAL GENETICS - CARDIOVASCULAR OFFICE/OUTPATIENT [facility] 60 MINUTES MEDICAL GENETICS COUNSELING EACH 30 MINUTES Dunia Angeles MD [address] [place] [id number] [place] [id number] Referral ID Status Reason Start Date Expiration Date Visits Requested Visits Authorized [id number] Authorized PCP Requested Referral Auto-Generate d Referral 05/09/2024 05/09/2025 1 1 * Consult, Test, Treat (Routine) - Authorized Specialty Diagnoses / Procedures Referred By Contac t Referred To Contact Diagnoses Observation for suspected genetic condition Procedures CONSULT TO MEDICAL GENETICS - GENERAL OFFICE/OUTPATIENT [facility] 60 MINUTES MEDICAL GENETICS COUNSELING EACH 30 MINUTES Dunia Angeles MD [address] [place] [address] [place] [address] Referral ID Status Reason Start Date Expiration Date Visits Requested Visits Authorized [id number] Authorized PCP Requested Referral Auto-Generate d Referral 05/09/2024 05/09/2025 1 1 * Diagnostic Procedure Only (Routine) - New Request Specialty Diagnoses / Procedures Referred By Contac t Referred To Contact [facility] Diagnoses History of maternal hypertension Procedures OBSTETRIC ULTRASOUND WHI US PREG UTERUS AFTER 1ST TRIMEST GESTATION Dunia Angeles MD [address] [place] [address] [place] [address] Referral ID Status Reason Start Date Expiration Date Visits Requested Visits Authorized [id number] New Request Auto-Generat ed Referral 05/09/2024 05/09/2025 1 1 * Consult, Test, Treat (Routine) - Authorized Specialty Diagnoses / Procedures Referred By Contac t Referred To Contact Urology Diagnoses Mitrofanoff appendicovesicostomy present (HCC) Procedures CONSULT TO UROLOGY OFFICE/OUTPATIENT NEW HIGH MDM 60 MINUTES Dunia Angeles MD [address] [place] [id number] Referral ID Status Reason Start Date Expiration Date Visits Requested Visits Authorized [id number] Authorized PCP Requested Referral 05/07/2024 05/07/2025 1 1 [facility] Diagnostic Procedure Only (Routine) - New Request Specialty Diagnoses / Procedures Referred By Contac t Referred To Contact [facility] Diagnoses Supervision of high risk , antepartum screening for malformation using ultrasonics 16 weeks gestation of Procedures OBSTETRIC ULTRASOUND WHI US PREG UTERUS AFTER 1ST [place] [address] [address] [place] [address] [address] Referral ID Status Reason Start Date Expiration Date Visits Requested Visits Authorized [id number] New Request Auto-Generat ed Referral 05/30/2024 05/30/2025 1 1 [facility] ([facility] Diagnostic Procedure Only (Routine) - Authorized Specialty Diagnoses / Procedures Referred By Contac t Referred To Contact [facility] Diagnoses Supervision of high risk , antepartum Procedures OBSTETRIC ULTRASOUND WHI US PREG UTERUS AFTER 1ST TRIMEST GESTATION Dunia Angeles MD [address] [place] [address] [address] Referral ID Status Reason Start Date Expiration Date Visits Requested Visits Authorized [id number] Authorized Auto-Generat ed Referral 06/28/2024 06/28/2025 5 1 [facility] Narrative* Auth/Cert Specialty Diagnoses / Procedures Referred By Contac t Referred To Contact Diagnoses Neurogenic bladder Bladder stone NEUROGENIC BLADDER, BLADDER STONE Procedures WI OFFICE/OUTPT VISIT,PROCEDURE ONLY [place] CYSTO/URETERO/PYELOSCOPY, CALCULUS TX HOLMIUM- CYSTOSCOPY, LASER LITHOTRIPSY OF BLADDER STONE Lex Willson MD [address] [address] [facility] [address] [place] [address] Referral ID Status Reason Start Date Expiration Date Visits Re quested Visits Authorized [id number] 1 1 [employer] Phone: reason for visit Narrative* Diagnostic Procedure Only (Routine) - Closed Specialty Diagnoses / Procedures Referred By Contac t Referred To Contact [facility] Diagnoses Supervision of high risk , antepartum Procedures OBSTETRIC ULTRASOUND WHI US PREG UTERUS AFTER 1ST TRIMEST GESTATION Nahomy Carcamo PA-C [address] [place] [address] [address] Referral ID Status Reason Start Date Expiration Date V isits Requested Visits Authorized [id number] Closed Auto-Generate d Referral 04/24/2024 04/24/2025 1 1 [facility] Inst[facility] * Instructions* Doar Guevara RN - 03/25/2020 Please follow up [...] 03/25/2020 11:42 AM EDT 1142 Pt to spar for phase2 documented in this encounter Advance Directives No Advanced Directives Records FoundDocuments on File Type Date Recorded Patient Senior Office Support Assistant Sosa Expl anation Advance Directives and Living Will Power of Principal Archaeologist Documents on File Type Date Recorded Patient Senior Office Support Assistant Sosa Expl anation Advance Directives and Living Will Power of Principal Archaeologist Documents on File Type Date Recorded Patient Senior Office Support Assistant Sosa Expl anation ACP-Advance Directive ACP-Power of Principal Archaeologist Documents on File Type Date Recorded Patient Senior Office Support Assistant Sosa Expl anation ACP-Advance Directive ACP-Power of Principal Archaeologist Latest Code Status on File Code Status [...] US RENAL COMPLETE Debbie Desai, RICHARD - CHASSIS ENGINEER [address] [address] Status Reason Specialty Diagnoses / Procedures Re ferred By Contact Referred To Contact [facility] Diagnoses Neurogenic bladder Pelviectasis of kidney Mitrofanoff appendicovesicostomy present (HCC) Procedures US RENAL COMPLETE Lex Willson MD [address] [address] Specialty Diagnoses / Procedures Referred By Contac t Referred To Contact Kathryn Nettles MD [address] [place] [address] Referral ID Status Reason Start Date Expiration Date V isits Requested Visits Authorized [id number] Pending Review 1 1 Specialty Diagnoses / Procedures Referred By Contac t Referred To Contact Diagnoses Supervision of high risk , antepartum Aortic root dilation (HCC) Chronic renal impairment, unspecified CKD stage 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 History of maternal hypertension Procedures CONSULT TO MATERNAL MEDI OFFICE/OUTPATIENT NEW HIGH MDM 60 MINUTES Nahomy Carcamo PA-C [address] [place] [address] Referral ID Status Reason Start Date Expiration Date Visits Requested Visits Authorized [id number] Authorized PCP Requested Referral Auto-Generate d Referral 04/27/2024 04/27/2025 1 1 Specialty Diagnoses / Procedures Referred By Contac t Referred To Contact [facility] Diagnoses Supervision of high risk , antepartum Procedures NUCHAL TRANSLUCENCY WHI US NUCHAL TRANSLUCENCY 1ST GESTATION Nahomy Carcamo PA-C [address] [place] [address] [address] Referral ID Status Reason Start Date Expiration Date Visits Requested Visits Authorized [id number] Authorized Auto-Generat ed Referral 04/24/2024 04/24/2025 1 1 Specialty Diagnoses / Procedures Referred By Contac t Referred To Contact [facility] Diagnoses Supervision of high risk , antepartum Procedures OBSTETRIC ULTRASOUND WHI US PREG UTERUS AFTER 1ST TRIMEST 1/ GESTATION Nahomy Carcamo PA-C [address] [place] [address] [address] Referral ID Status Reason Start Date Expiration Date Visits Requested Visits Authorized [id number] Authorized Auto-Generat ed Referral 04/24/2024 04/24/2025 1 1 Additional Source Comments Reason for Visit (unrecogniz ed section and content) Status Reason Specialty Diagnoses / Procedures Re ferred By Contact Referred To Contact Diagnoses Neurogenic bladder Mitrofanoff appendicovesicostomy present (HCC) NEUROGENIC BLADDER, MITROFANOFF Procedures WI CYSTOURETHROSCOPY CYSTOSCOPY (SURVEILLANCE) Amelia Rich MD [address] [address] [facility] Status Reason Specialty Diagnoses / Procedures Referre d By Contact Referred To Contact [facility] Diagnoses Pelviectasis of kidney Neurogenic bladder Procedures US RENAL COMPLETE Debbie Desai, GAS PUMP ATTENDANT - CHASSIS ENGINEER [address] [facility] [address] [place] [address] Status Reason Specialty Diagnoses / Procedures Re ferred By Contact Referred To Contact [facility] Diagnoses Neurogenic bladder Pelviectasis of kidney Mitrofanoff appendicovesicostomy present (HCC) Procedures US RENAL COMPLETE Lex Willson MD [address] [facility] [address] [place] [address] Reason Comments Abdominal Pain Reason Comments Annual Exam Reason Comments Preconception Specialty Diagnoses / Procedures Referred By Contac t Referred To Contact [facility] Medicine Diagnoses Hydronephrosis of left kidney Chronic renal impairment, stage 3 (moderate), unspecified whether stage 3a or 3b CKD ([facility]) Kathryn Nettles MD [address] [place] [address] [facility] Maternal Med [address] [place] [address] Referral ID Status Reason Start Date Expiration Date Visits Requested Visits Authorized [id number] Pending Review Specialty Services Required 11/07/2023 11/06/2024 1 1 Reason Comments Herpes lesion treatment options Reason Comments PEAC Care Coordination Reason Comments Initial OB Visit Reason Comments PRAF Reason Comments US Specialty Diagnoses / Procedures Referred By Contac t Referred To Contact [facility] Diagnoses Supervision of high risk , antepartum Procedures NUCHAL TRANSLUCENCY WHI US NUCHAL TRANSLUCENCY 1ST GESTATION Nahomy Carcamo PA-C [address] [place] [address] [address] Referral ID Status Reason Start Date Expiration Date V isits Requested Visits Authorized [id number] Closed Auto-Generate d Referral 04/24/2024 04/24/2025 1 1 Reason Comments Consult Reason Comments Patient Update Headache concerns in early Reason Comments Care Reason Comments No Show Reason Comments US Specialty Diagnoses / Procedures Referred By Contac t Referred To Contact [facility] Diagnoses Supervision of high risk , antepartum screening for malformation using ultrasonics 16 weeks gestation of Procedures OBSTETRIC ULTRASOUND WHI US PREG UTERUS AFTER 1ST [place] [address] [address] [place] [address] [facility] [address] [place] [address] Referral ID Status Reason Start Date Expiration Date V isits Requested Visits Authorized [id number] Closed Auto-Generate d Referral 05/30/2024 05/30/2025 1 1 INFORMATION SOURCE (unrecogn ized section and content) DATE CREATED AUTHOR 03/26/2020 [facility] DATE CREATED AUTHOR AUTHOR'S ORGANIZ ATION 05/16/2022 [facility] DATE CREATED AUTHOR AUTHOR'S ORGANIZ ATION 06/10/2022 [facility] DATE CREATED AUTHOR AUTHOR'S ORGANIZ ATION 03/25/2023 [facility] DATE CREATED AUTHOR AUTHOR'S ORGANIZ ATION 01/04/2024 [facility] DATE CREATED AUTHOR AUTHOR'S ORGANIZ ATION 01/12/2024 [facility] DATE CREATED AUTHOR AUTHOR'S ORGANIZ ATION 03/13/2024 [facility] DATE CREATED AUTHOR AUTHOR'S ORGANIZ ATION 04/19/2024 [facility] DATE CREATED AUTHOR AUTHOR'S ORGANIZ ATION 04/21/2024 [facility] DATE CREATED AUTHOR AUTHOR'S ORGANIZ ATION 05/17/2024 [facility] DATE CREATED AUTHOR AUTHOR'S ORGANIZ ATION 06/25/2024 [facility] DATE CREATED AUTHOR AUTHOR'S ORGANIZ ATION 06/30/2024 [facility] Scheduled Active and Recently Administ ered Medications (unrecognized section and content) Medication Order 09/12/2021 09/13/2021 09/14/2021 scopolamine (TRANSDERM-SCOP) transdermal patch 1 patch 1 patch, TransDERmal, Administer over 72 Hours, ONCE, On 09/14/21 at 1245, For 1 dose, Remove in [...] Care Teams (unrecognized sec tion and content) Maintenance Service Dispatcher Relationship Specialty [place] [address] [address] PCP - General Family Medicine 02/18/21 Maintenance Service Dispatcher Relationship Specialty Start Date End Date Apurva Engle DO PCP - General Family Medicine 02/18/21 Maintenance Service Dispatcher Relationship Specialty Start Date End Date Apurva Engle DO [address] [place] [address] PCP - General Family Medicine 12/02/20 Maintenance Service Dispatcher Relationship Specialty Start Date End Date Apurva Engle DO [address] [place] [address] PCP - General Family Medicine 12/02/20 Maintenance Service Dispatcher Relationship Specialty Start Date End Date Apurva Engle DO [address] [place] [address] PCP - General Family Medicine 12/02/20 Maintenance Service Dispatcher Relationship Specialty Start Date End Date Apurva Engle DO [address] [place] [address] PCP - General Family Medicine 12/02/20 Maintenance Service Dispatcher Relationship Specialty Start Date End Date Apurva Engle DO [address] [place] [address] PCP - General Family Medicine 12/02/20 Maintenance Service Dispatcher Relationship Specialty Start Date End Date Apurva Engle DO [address] [place] [address] PCP - General Family Medicine 12/02/20 Maintenance Service Dispatcher Relationship Specialty Start Date End Date Apurva Engle DO [address] [place] [address] PCP - General Family Medicine 12/02/20 Maintenance Service Dispatcher Relationship Specialty Start Date End Date Apurva Engle DO [address] [place] [address] PCP - General Family Medicine 12/02/20 Maintenance Service Dispatcher Relationship Specialty Start Date End Date Alanna Cummings CNP [address] [facility] [place] [address] Referring Director Chemistry 04/12/24 Maintenance Service Dispatcher Relationship Specialty Start Date End Date Alanna Cummings CNP [address] [facility] [place] [address] Referring Director Chemistry 04/12/24 Maintenance Service Dispatcher Relationship Specialty Start Date End Date Alanna Cummings CNP [address] [place] [address] Referring Director Chemistry 04/12/24 Maintenance Service Dispatcher Relationship Specialty Start Date End Date Alanna Cummings CNP [address] [place] [address] Referring Director Chemistry 04/12/24 Maintenance Service Dispatcher Relationship Specialty Start Date End Date Alanna Cummings CNP [address] [place] [address] Referring Director Chemistry 04/12/24 Maintenance Service Dispatcher Relationship Specialty Start Date End Date Alanna Cummings CNP [address] [place] [address] Referring Director Chemistry 04/12/24 Maintenance Service Dispatcher Relationship Specialty Start Date End Date Alanna Cummings CNP [address] [facility] [place] [address] Referring Director Chemistry 04/12/24 Maintenance Service Dispatcher Relationship Specialty Start Date End Date Alanna Cummings CNP [address] [place] [address] Referring Director Chemistry 04/12/24 Maintenance Service Dispatcher Relationship Specialty Start Date End Date Alanna Cummings CNP [address] [place] [address] Referring Director Chemistry 04/12/24 Maintenance Service Dispatcher Relationship Specialty Start Date End Date Alanna Cummings CNP [address] [place] [address] Referring Director Chemistry 04/12/24 Maintenance Service Dispatcher Relationship Specialty Start Date End Date Alanna Cummings CNP [address] [place] [address] Referring Director Chemistry 04/12/24 Lesa Agrawal RN Straightening Roll Operator Maternal Medicine 05/17/24 11/26/24 Maintenance Service Dispatcher Relationship Specialty Start Date End Date Alanna Cummings CNP [address] [place] [address] Referring Director Chemistry 04/12/24 Lesa Agrawal RN Straightening Roll Operator Maternal Medicine 05/17/24 11/26/24 Maintenance Service Dispatcher Relationship Specialty Start Date End Date Alanna Cummings CNP [address] [place] [address] Referring Director Chemistry 04/12/24 Lesa Agrawal RN Straightening Roll Operator Maternal Medicine 05/17/24 11/26/24 Maintenance Service Dispatcher Relationship Specialty Start Date End Date Alanna Cummings CNP [address] [place] [address] Referring Director Chemistry 04/12/24 Lesa Agrawal RN Straightening Roll Operator Maternal Medicine 05/17/24 11/26/24 Maintenance Service Dispatcher Relationship Specialty Start Date End Date ZoilaAlanna lim, SAM [address] [place] [address] Referring Director Chemistry 04/12/24 Lesa Agrawal RN Straightening Roll Operator Maternal Medicine 05/17/24 11/26/24 Source Comments (unrecognize d section and content) In the event this informatio n is protected by the Federal Confidentiality of Alcohol and Drug Abuse Patient Records regulations: The Federal rules restrict any use of the information to criminally investigate or prosecute any alcohol or drug abuse patient.[facility] the event this information is protected by the Federal Confidentiality of Alcohol and Drug Abuse Patient Records regulations: The Federal rules restrict any use of the information to criminally investigate or prosecute any alcohol or drug abuse patient.[facility] the event this information is protected by the Federal Confidentiality of Alcohol and Drug Abuse Patient Records regulations: The Federal rules restrict any use of the information to criminally investigate or prosecute any alcohol or drug abuse patient.[facility] the event this information is protected by the Federal Confidentiality of Alcohol and Drug Abuse Patient Records regulations: The Federal rules restrict any use of the information to criminally investigate or prosecute any alcohol or drug abuse patient.[facility] the event this information is protected by the Federal Confidentiality of Alcohol and Drug Abuse Patient Records regulations: The Federal rules restrict any use of the information to criminally investigate or prosecute any alcohol or drug abuse patient.[facility] the event this information is protected by the Federal Confidentiality of Alcohol and Drug Abuse Patient Records regulations: The Federal rules restrict any use of the information to criminally investigate or prosecute any alcohol or drug abuse patient.[facility] the event this information is protected by the Federal Confidentiality of Alcohol and Drug Abuse Patient Records regulations: The Federal rules restrict any use of the information to criminally investigate or prosecute any alcohol or drug abuse patient.[facility] Hospital[facility] the event this information is protected by the Federal Confidentiality of Alcohol and Drug Abuse Patient Records regulations: The Federal rules restrict any use of the information to criminally investigate or prosecute any alcohol or drug abuse patient.[facility] the event this information is protected by the Federal Confidentiality of Alcohol and Drug Abuse Patient Records regulations: The Federal rules restrict any use of the information to criminally investigate or prosecute any alcohol or drug abuse patient.[facility] Hospital[facility] the event this information is protected by the Federal Confidentiality of Alcohol and Drug Abuse Patient Records regulations: The Federal rules restrict any use of the information to criminally investigate or prosecute any alcohol or drug abuse patient.[facility] HospitalIn the event this information is protected by the Federal Confidentiality of Alcohol and Drug Abuse Patient Records regulations: The Federal rules restrict any use of the information to criminally investigate or prosecute any alcohol or drug abuse patient.[facility] HospitalIn the event this information is protected by the Federal Confidentiality of Alcohol and Drug Abuse Patient Records regulations: The Federal rules restrict any use of the information to criminally investigate or prosecute any alcohol or drug abuse patient.[facility] HospitalIn the event this information is protected by the Federal Confidentiality of Alcohol and Drug Abuse Patient Records regulations: The Federal rules restrict any use of the information to criminally investigate or prosecute any alcohol or drug abuse patient.[facility]In the event this information is protected by the Federal Confidentiality of Alcohol and Drug Abuse Patient Records regulations: The Federal rules restrict any use of the information to criminally investigate or prosecute any alcohol or drug abuse patient.[facility]In the event this information is protected by the Federal Confidentiality of Alcohol and Drug Abuse Patient Records regulations: The Federal rules restrict any use of the information to criminally investigate or prosecute any alcohol or drug abuse patient.[facility] the event this information is protected by the Federal Confidentiality of Alcohol and Drug Abuse Patient Records regulations: The Federal rules restrict any use of the information to criminally investigate or prosecute any alcohol or drug abuse patient.[facility] FOR RECORDS PERTAINING TO PATIENTS WHO [...] BE BASED ON THE PRIMARY CLINICAL RECORDS. [facility]. provides no warranty or guarantee of the accuracy or completeness of information in this document.
[2024-06-30 23:55] VITALS: BP 112/81; PULSE 77; TEMP 37.1; O2SAT 100; BMI 19.4
--- NOTE | 2024-07-01 00:40 | ED_ITS ---
HPI - General Chief complaint: Vaginal Bleeding Stated complaint: vaginal bleeding Time Seen by Provider: 07/01/24 00:09 Source: patient Mode of arrival: walk-in Limitations: no limitations History of Present Illness HPI Narrative: 23-year-old female who is 1 para 0 and 20 weeks presents to the emergency department for possible vaginal bleeding. She thinks she saw some blood from her vagina but she was not 100% certain so she came in here to get checked. She did not pass any blood in her stool and has no abdominal pain. This occurred tonight Related Data Home Medications ?Medication ?Instructions ?Recorded ?Confirmed aspirin 81 mg tablet,delayed mg 06/14/24 release vitamin with calcium tab 06/14/24 no.72-iron 27 mg-folic acid 1 mg tablet (WesTab Plus) Allergies Allergy/AdvReac Type Severity Reaction Status Date / Time ibuprofen Allergy Mild Unknown Verified 06/30/24 23:55 Review of Systems ROS Narrative A ten point review of systems is negative except as noted above. PFSH PFSH Social History Smoking status: Current every day smoker Little interest or pleasure in doing things: not at all Feeling down, depressed, or hopeless: not at all Exam Narrative Exam Narrative: Nurses note and vital signs reviewed and patient is not hypoxic. General: The patient appears well and in no apparent distress. Patient is resting comfortably on cart. Skin: Warm, dry, no pallor noted. There is no rash noted. Head: Normocephalic, atraumatic Eye: Normal conjunctiva, no drainage Ears, Nose, Mouth, and Throat: oral mucosa is moist. Nares patent. Cardiovascular: Regular Rate and Rhythm Respiratory: Patient is in no distress, no accessory muscle use, lungs are clear to auscultation, no wheezing, rales or rhonchi GI: Soft and nondistended : Speculum exam shows no blood present. Musculoskeletal: The patient has no evidence of calf tenderness, no pitting edema, symmetrical pulses noted bilaterally Neurological: Awake and alert Psychiatric: Cooperative Constitutional Vital Signs, click to edit/add: Last Vital Signs Temp 98.7 F 06/30/24 23:55 Pulse 77 06/30/24 23:55 Resp 16 06/30/24 23:55 BP 112/81 06/30/24 23:55 Pulse Ox 100 06/30/24 23:55 O2 Del Method Room Air 06/30/24 23:55 Course Vital Signs Vital signs: Vital Signs Temperature 98.7 F 06/30/24 23:55 Pulse Rate 77 06/30/24 23:55 Respiratory Rate 16 06/30/24 23:55 Blood Pressure 112/81 06/30/24 23:55 Pulse Oximetry 100 06/30/24 23:55 Oxygen Delivery Method Room Air 06/30/24 23:55 Temperature 98.7 F 06/30/24 23:55 Pulse Rate 77 06/30/24 23:55 Respiratory Rate 16 06/30/24 23:55 Blood Pressure 112/81 06/30/24 23:55 Pulse Oximetry 100 06/30/24 23:55 Oxygen Delivery Method Room Air 06/30/24 23:55 MDM - OB/Uterine Contractions MDM Narrative Medical decision making narrative: heart rate is appropriate and there is no bleeding present. She was reassured and discharged home. Treatment diagnosis and follow-up were discussed with the patient Differential Diagnosis Differential diagnosis: Likely other (Miscarriage, bleeding in ) Discharge Plan Discharge Chief Complaint: Vaginal Bleeding Clinical Impression: No problem, feared complaint unfounded Patient Disposition: Home, Self-Care Time of Disposition Decision: 00:40 Condition: Good Mode of Transportation: Private Vehicle Prescriptions / Home Meds: No Action aspirin 81 mg tablet,delayed release (DR/EC) WesTab Plus 27 mg iron- 1 mg tablet Print Language: Hebrew Instructions: at 19 to 22 Weeks (ED) Referrals: Physician,Non-Staff, [Primary Care Provider] - 1 week
== END 2024-07-01 00:44 | disposition home or self-care (01) ==
PROVIDERS: Emergency Provider Emergency Medicine
DX: Z71.1 Person with feared health complaint in whom no diagnosis is made (principal)
CPT/HCPCS: 99283